=== PATIENT | female | born 1960 | race African-American/Black ===

== ENCOUNTER → 2016-02-27 | Outpatient (CLI) | payer MEDICARE, MEDICAID | LOC: RAD 10:15 | PROVIDERS: ATTEND Internal Medicine | DX: M25.552 Pain in left hip (principal) ==

== ENCOUNTER 2016-04-13 10:05 | Inpatient (IN) | payer MEDICARE, MEDICAID ==
--- NOTE | 2016-04-13 10:26 | ER Document Report ---
ED Medical Screen (RME) - General Stated Complaint: CHEST PAIN Time seen by provider: 10:22 Mode of Arrival: Medic Information source: Patient TRAVEL OUTSIDE OF THE [place] IN LAST 30 DAYS: No - HPI Patient complains to provider of: CHEST PAIN Onset: Other - LAST NIGHT Onset/Duration: Intermittent Associated Symptoms: Chest pain, Shortness of breath. denies: Fever, Nausea, Vomiting Exacerbated by: Denies Relieved by: Denies Similar symptoms previously: Yes Recently seen / treated by doctor: Yes - DIALYSIS THIS AM - Related Data Smoking: Non-smoker Frequency of alcohol use: None Drug Abuse: None Pertinent History: TOOK 3 LITERS OFF IN DIALYSIS THIS AM. Aspirin not given in RME because patient received 4 tablets at dialysis prior to arrival. I have greeted and performed a rapid initial assessment of this patient. A comprehensive ED assessment and evaluation of the patient, analysis of test results and completion of the medical decision making process will be conducted by additional ED providers. Allergies/Adverse Reactions: labetalol [Labetalol] Allergy (Severe, Verified 04/13/16 10:22) swelling, sob Penicillins Allergy (Severe, Verified 04/13/16 10:22) itching Liraglutide [From Victoza] Adverse Reaction (Verified 04/13/16 10:22) nausea/vomitting Past Medical History - Past Medical History Cardiac Medical History: Reports: Hx Congestive Heart Failure, Hx Coronary Artery Disease, Hx Heart Attack - 2007, Hx Hypercholesterolemia, Hx Hypertension Pulmonary Medical History: Reports: Hx Sleep Apnea - On CPap Denies: Hx Asthma, Hx Bronchitis, Hx COPD, Hx Pneumonia Neurological Medical History: Reports: Hx Cerebrovascular Accident. Denies: Hx Seizures Endocrine Medical History: Reports: Hx Diabetes Mellitus Type 1, Hx Diabetes Mellitus Type 2, Hx Hypothyroidism Renal/ Medical History: Reports: Hx End Stage Renal Disease Musculoskeltal Medical History: Reports Hx Arthritis, Reports Hx Gout Psychiatric Medical History: Reports: Hx Depression Past Surgical History: Reports: Hx Appendectomy, Hx Section, Hx Cholecystectomy, Hx Hysterectomy - Abdominal, Hx Orthopedic Surgery - cancer removed from back, Other - parathyroidectomy, 3-1/2 glands removed on 01/13/2016 ; right adrenalectomy - Immunizations Hx Diphtheria, Pertussis, Tetanus Vaccination: Yes
[2016-04-13 11:20] LABS: ABSOLUTE BASOPHILS # (AUTO) 0.1 10^3/uL (0.0-0.2); ABSOLUTE EOSINOPHILS # (AUTO) 0.5 10^3/uL (0.0-0.6); ABSOLUTE LYMPHOCYTES (AUTO) 2.1 10^3/uL (0.5-4.7); ABSOLUTE MONOCYTES (AUTO) 0.7 10^3/uL (0.1-1.4); ABSOLUTE NEUT (AUTO) 5.5 10^3/uL (1.7-8.2); BASOPHILS % (AUTO) 0.8 % (0-2); EOSINOPHILS % (AUTO) 5.8 % (0-6); HEMATOCRIT 39.6 % (36.0-47.0); HEMOGLOBIN 12.8 g/dL (12.0-15.5); HGB HCT DIFFERENCE -1.2; LYMPHOCYTES % (AUTO) 23.5 % (13-45); MEAN CORPUSCULAR HEMOGLOBIN 28.6 pg (27.0-33.4); MEAN CORPUSCULAR HGB CONC 32.4 g/dL (32.0-36.0); MEAN CORPUSCULAR VOLUME 88 fl (80-97); MONOCYTES % (AUTO) 8.3 % (3-13); PROTHROMBIN TIME 12.6 SEC (11.4-15.4); RED BLOOD COUNT 4.48 10^6/uL (3.72-5.28); RED CELL DISTRIBUTION WIDTH 15.9 % (11.5-14.0); SEGMENTED NEUTROPHILS % (AUTO) 61.6 % (42-78)
[2016-04-13 11:34] LABS: ALANINE AMINOTRANSFERASE 51 U/L (9-52); ALBUMIN 4.4 g/dL (3.5-5.0); ALKALINE PHOSPHATASE 234 U/L (38-126); ANION GAP 15 (5-19); ASPARTATE AMINO TRANSFERASE 35 U/L (14-36); BILIRUBIN,TOTAL 1.1 mg/dL (0.2-1.3); BLOOD UREA NITROGEN 41 mg/dL (7-20); CALCIUM 8.8 mg/dL (8.4-10.2); CARBON DIOXIDE 31 mmol/L (22-30); CHLORIDE 93 mmol/L (98-107); CREATINE KINASE 85 U/L (30-135); GLUCOSE 96 mg/dL (75-110); POTASSIUM 4.7 mmol/L (3.6-5.0); SODIUM 139.4 mmol/L (137-145); TOTAL PROTEIN 8.4 g/dL (6.3-8.2)
[2016-04-13 11:46] LABS: CREATINE KINASE MB 0.79 ng/mL (<4.55)
[2016-04-13 11:55] LABS: TROPONIN I 0.037 ng/mL
--- NOTE | 2016-04-13 12:53 | ER Document Report ---
ED General - General Chief Complaint: Chest Pain Stated Complaint: CHEST PAIN Mode of Arrival: Medic Information source: Patient Notes: 56 yr old dialysis female presents with complaints of left sided chest pressure sensation with associated sob. pt denies any fevers or chills, nausea or vomiting. pt denies any productivity to cough pt notes pain started last night, had continued pain today , still had dialysis and removed 3 liters. TRAVEL OUTSIDE OF THE [place] IN LAST 30 DAYS: No - HPI Onset: Yesterday Onset/Duration: Persistent Quality of pain: Achy Severity: Mild Pain Level: 1 Associated symptoms: Chest pain Exacerbated by: Denies Relieved by: Denies Similar symptoms previously: Yes Recently seen / treated by doctor: Yes - Related Data Allergies/Adverse Reactions: labetalol [Labetalol] Allergy (Severe, Verified 04/13/16 10:22) swelling, sob Penicillins Allergy (Severe, Verified 04/13/16 10:22) itching Liraglutide [From Victoza] Adverse Reaction (Verified 04/13/16 10:22) nausea/vomitting Past Medical History - General Information source: Patient - Social History Smoking Status: Unknown if Ever Smoked Cigarette use (# per day): No Chew tobacco use (# tins/day): No Smoking Education Provided: No Frequency of alcohol use: None Drug Abuse: None Family History: Reviewed & Not Pertinent Patient has suicidal ideation: No Patient has homicidal ideation: No - Past Medical History Cardiac Medical History: Reports: Hx Congestive Heart Failure, Hx Coronary Artery Disease, Hx Heart Attack - 2007, Hx Hypercholesterolemia, Hx Hypertension Pulmonary Medical History: Reports: Hx Sleep Apnea - On CPap Denies: Hx Asthma, Hx Bronchitis, Hx COPD, Hx Pneumonia Neurological Medical History: Reports: Hx Cerebrovascular Accident. Denies: Hx Seizures Endocrine Medical History: Reports: Hx Diabetes Mellitus Type 1, Hx Diabetes Mellitus Type 2, Hx Hypothyroidism Renal/ Medical History: Reports: Hx End Stage Renal Disease. Denies: Hx Peritoneal Dialysis Musculoskeltal Medical History: Reports Hx Arthritis, Reports Hx Gout Psychiatric Medical History: Reports: Hx Depression Past Surgical History: Reports: Hx Appendectomy, Hx Section, Hx Cholecystectomy, Hx Hysterectomy - Abdominal, Hx Orthopedic Surgery - cancer removed from back, Other - parathyroidectomy, 3-1/2 glands removed on 01/13/2016 ; right adrenalectomy - Immunizations Hx Diphtheria, Pertussis, Tetanus Vaccination: Yes Hx Pneumococcal Vaccination: 02/18/15 Review of Systems - Review of Systems Notes: REVIEW OF SYSTEMS: CONSTITUTIONAL : Denies fever, chills, or sweats. Denies recent illness. EENT: Denies eye, ear, throat, or mouth pain or symptoms. Denies nasal or sinus congestion or discharge. Denies throat, tongue, or mouth swelling or difficulty swallowing. CARDIOVASCULAR: admits to chest pain RESPIRATORY: Denies cough, cold, or chest congestion. Denies shortness of breath, difficulty breathing, or wheezing. GASTROINTESTINAL: Denies abdominal pain or distention. Denies nausea, vomiting , or diarrhea. Denies blood in vomitus, stools, or per rectum. Denies black, tarry stools. Denies constipation. GENITOURINARY: Denies difficulty urinating, painful urination, burning, frequency, blood in urine, or discharge. FEMALE GENITOURINARY: Denies vaginal bleeding, heavy or abnormal periods, irregular periods. Denies vaginal discharge or odor. MUSCULOSKELETAL: Denies back or neck pain or stiffness. Denies joint pain or swelling. SKIN: Denies rash, lesions or sores. HEMATOLOGIC : Denies easy bruising or bleeding. LYMPHATIC: Denies swollen, enlarged glands. NEUROLOGICAL: Denies confusion or altered mental status. Denies passing out or loss of consciousness. Denies dizziness or lightheadedness. Denies headache. Denies weakness or paralysis or loss of use of either side. Denies problems with gait or speech. Denies sensory loss, numbness, or tingling. Denies seizures. PSYCHIATRIC: Denies anxiety or stress. Denies depression, suicidal ideation, or homicidal ideation. ALL OTHER SYSTEMS REVIEWED AND NEGATIVE. Dictation was performed using [employer] voice recognition software PHYSICAL EXAMINATION: GENERAL: Well-appearing, well-nourished and in no acute distress. HEAD: Atraumatic, normocephalic. EYES: Pupils equal round and reactive to light, extraocular movements intact, conjunctiva are normal. ENT: Nares patent, oropharynx clear without exudates. Moist mucous membranes. NECK: Normal range of motion, supple without lymphadenopathy LUNGS: Breath sounds clear to auscultation bilaterally and equal. No wheezes rales or rhonchi. HEART: Regular rate and rhythm without murmurs ABDOMEN: Soft, nontender, nondistended abdomen. No guarding, no rebound. No masses appreciated. Female : deferred Musculoskeletal: Normal range of motion, no pitting or edema. No cyanosis. NEUROLOGICAL: Cranial nerves grossly intact. Normal speech, normal gait. Normal sensory, motor exams PSYCH: Normal mood, normal affect. SKIN: dialysis access left upper Course - Re-evaluation Re-evalutation: 04/13/16 12:49 first set of cardiac enzymes were negative, chest xray consistant wit hchf, no fluid noted. pt will be admitted ot dr gooden for acs rule out given risk factors - Laboratory Result Diagrams: 04/13/16 10:47 04/13/16 10:47 Laboratory results interpreted by me: 04/13/16 04/13/16 04/13/16 10:47 10:47 10:47 RDW 15.9 H Chloride 93 L Carbon Dioxide 31 H BUN 41 H Creatinine 6.50 H Est GFR ( Amer) 8 L Est GFR (Non-Af Amer) 7 L Alkaline Phosphatase 234 H NT-Pro-B Natriuret Pep 1140 H Total Protein 8.4 H - Diagnostic Test Radiology reviewed: Image reviewed, Reports reviewed Discharge - Discharge Clinical Impression: Renal failure, SOB (shortness of breath) CHF (congestive heart failure) Qualifiers: Congestive heart failure type: combined Congestive heart failure chronicity: acute on chronic Qualified Code(s): I50.43 - Acute on chronic combined systolic (congestive) and diastolic (congestive) heart failure Chest pain Qualifiers: Chest pain type: unspecified Qualified Code(s): R07.9 - Chest pain, unspecified Condition: Stable Disposition: ADMITTED OBSERVATION Admitting Provider: [facility] Admitted: [facility]
[2016-04-13 17:00] LABS: CREATINE KINASE MB 0.65 ng/mL (<4.55); TROPONIN I 0.031 ng/mL
[2016-04-13] MEDS ORDERED: ONDANSETRON HCL 8 MG TABLET PO PRN (17:20)
[2016-04-13] MEDS ORDERED: (PENDING PHARMACY ID) (Tramadol Hcl/Acetaminophen [Tramadol-Acetaminophn 37.5-325] 1 TAB) PO PRN (17:20)
[2016-04-13] MEDS ORDERED: (PENDING PHARMACY ID) (Amlodipine/Valsartan/Hcthiazid [Exforge Hct 10-320-25 Mg Tab] 1 EAC PO SCH (17:30)
[2016-04-13] MEDS ORDERED: (PENDING PHARMACY ID) (Clonidine Hcl [Catapres 0.3 Mg Tablet] 0.3 MG) PO SCH (17:30)
[2016-04-13] MEDS ORDERED: VITAMIN D2 PO SCH (18:00)
[2016-04-13] MEDS ORDERED: [UNRECOGNIZED DRUG - OTHER] PO SCH (18:00)
[2016-04-13] MEDS ORDERED: CALCIUM CARBONATE PO SCH (18:00)
--- NOTE | 2016-04-13 18:29 | EKG REPORT ---
SEVERITY:- ABNORMAL ECG - SINUS RHYTHM ABNORMAL T, CONSIDER ISCHEMIA, LATERAL LEADS BORDERLINE PROLONGED QT INTERVAL : Confirmed by: Ulysses Walden MD 13-Apr-2016 18:29:00
[2016-04-13] MEDS ORDERED: METOPROLOL SUCCINATE 50 MG TAB.SR.24H PO ONE (19:00)
[2016-04-13] MEDS ORDERED: LUBIPROSTONE 24 MCG CAPSULE PO ONE (19:00)
[2016-04-13] MEDS ORDERED: CALCITRIOL 0.25 MCG CAPSULE PO ONE (19:00)
[2016-04-13] MEDS ORDERED: HYDROCHLOROTHIAZIDE 25 MG TABLET PO ONE (19:30)
[2016-04-13] MEDS ORDERED: VALSARTAN 160 MG TABLET PO ONE (19:30)
[2016-04-13] MEDS ORDERED: AMLODIPINE BESYLATE 10 MG TABLET PO ONE (19:30)
[2016-04-13] MEDS: CALCIUM CARBONATE 500 MG TAB.CHEW PO SCH (19:48)
[2016-04-13] MEDS: CLONIDINE HCL 0.1 MG TABLET PO SCH (21:49)
[2016-04-13] MEDS: INSULIN GLARGINE,HUM.REC.ANLOG 1,000 UNIT/10 ML UNIT SUBCUT SCH (21:49)
[2016-04-13 23:21] LABS: CREATINE KINASE MB 0.48 ng/mL (<4.55); TROPONIN I 0.032 ng/mL
[2016-04-13] MEDS ORDERED: CLONAZEPAM 1 MG TABLET PO PRN (23:50)
[2016-04-13] MEDS ORDERED: PREGABALIN 75 MG CAPSULE PO ONE (23:50)
[2016-04-13] MEDS ORDERED: CLONAZEPAM 1 MG TABLET PO ONE (23:51)
[2016-04-14 05:13] LABS: CHOLESTEROL 223.24 mg/dL (0-200); Direct HDL 37 mg/dL (>40); TRIGLYCERIDES 296 mg/dL (<150)
[2016-04-14 05:24] LABS: DIRECT LDL 114 mg/dL (<100)
[2016-04-14 05:26] LABS: CREATINE KINASE MB 0.31 ng/mL (<4.55); TROPONIN I 0.033 ng/mL
[2016-04-14 05:28] LABS: VLDL CHOLESTEROL 59.2 mg/dL (10-31)
[2016-04-14] MEDS: CALCIUM CARBONATE 500 MG TAB.CHEW PO SCH ×2 (09:32→17:40)
[2016-04-14] MEDS: CALCITRIOL 0.25 MCG CAPSULE PO SCH (09:34)
[2016-04-14] MEDS: PREGABALIN 75 MG CAPSULE PO SCH ×2 (09:34→17:41)
[2016-04-14] MEDS: ASPIRIN 81 MG TABLET, ENT COATED PO SCH (09:36)
[2016-04-14] MEDS: METOPROLOL SUCCINATE 50 MG TAB.SR.24H PO SCH (09:37)
[2016-04-14] MEDS: INSULIN GLARGINE,HUM.REC.ANLOG 1,000 UNIT/10 ML UNIT SUBCUT SCH ×2 (09:41→23:04)
[2016-04-14] MEDS: AMLODIPINE BESYLATE 10 MG TABLET PO SCH (10:31)
[2016-04-14] MEDS: CLONIDINE HCL 0.1 MG TABLET PO SCH ×2 (10:32→23:08)
[2016-04-14] MEDS: VALSARTAN 160 MG TABLET PO SCH (10:59)
[2016-04-14] MEDS: LUBIPROSTONE 24 MCG CAPSULE PO SCH ×2 (10:59→23:03)
[2016-04-14] MEDS: HYDROCHLOROTHIAZIDE 25 MG TABLET PO SCH (10:59)
--- NOTE | 2016-04-14 13:02 | XCELERA REPORT ---
[address] [address] Transthoracic Echocardiogram Report Name: MARIOLA GAR Age: 56 yrs Gender: Female : 1960 Patient Status: Inpatient Patient Location: \S\[facility]\S\A Study Date: 04/14/2016 08:47 AM Height: 63 in Weight: 240 lb BSA: 2.1 m2 Procedure: A complete two-dimensional transthoracic echocardiogram was performed (2D, M-mode, spectral and color flow Doppler). The study was technically adequate with some images being suboptimal in quality. Reason For Study: CP Ordering Physician: ROBERTO SALDANA Performed By: Kassidy López Interpretation Summary The left ventricular ejection fraction is normal. Doppler measurements suggest pseudonormalized left ventricular relaxation, which is associated with grade II/IV or mild to moderate diastolic dysfunction There is moderate concentric left ventricular hypertrophy. The left ventricle is grossly normal size. Wall motion cannot be accurately commented on, but no definite regional wall motion abnormalities noted. The right ventricle is mildly dilated. The right ventricular systolic function is normal. The right atrium is mildly dilated. The left atrium is mildly dilated. There is no mitral valve stenosis. There is a mild amount of mitral regurgitation There is no aortic valve stenosis The aortic valve is not well visualized secondary to technical limitations There is a trace to mild amount of tricuspid regurgitation There is mild pulmonary hypertension by echo Right ventricular systolic pressure is estimated to be elevated at 30- 40mmHg. There is no pericardial effusion. MMode/2D Measurements \T\ Calculations RVDd: 3.0 cm LVIDd: 5.1 cm FS: 35.9 % Ao root diam: 2.1 cm IVSd: 1.2 cm LVIDs: 3.2 cm EDV(Teich): 121.8 ml LVPWd: 1.2 cm ESV(Teich): 42.4 ml Ao root area: 3.3 cm2 EF(Teich): 65.2 % LA dimension: 3.9 cm Doppler Measurements \T\ Calculations MV E max octavio: MV P1/2t max octavio: Ao V2 max: LV V1 max P.9 cm/sec 82.4 cm/sec 158.1 cm/sec 4.1 mmHg MV A max octavio: MV P1/2t: 97.8 msec Ao max PG: LV V1 max: 94.3 cm/sec 10.0 mmHg 101.7 cm/sec MV E/A: 0.87 MVA(P1/2t): 2.2 cm2 MV dec slope: 246.8 cm/sec2 MV dec time: 0.34 sec PA V2 max: TR max octavio: 73.5 cm/sec 274.2 cm/sec PA max PG: TR max P.1 mmHg 2.2 mmHg Left Ventricle The left ventricle is grossly normal size. There is moderate concentric left ventricular hypertrophy. The left ventricular ejection fraction is normal. Doppler measurements suggest pseudonormalized left ventricular relaxation, which is associated with grade II/IV or mild to moderate diastolic dysfunction. Wall motion cannot be accurately commented on, but no definite regional wall motion abnormalities noted. Right Ventricle The right ventricle is mildly dilated. There is normal right ventricular wall thickness. The right ventricular systolic function is normal. Atria The right atrium is mildly dilated. The left atrium is mildly dilated. Interarterial septum not well visualized and not well dopplered. Cannot comment on ASD/PFO presence. Mitral Valve The mitral valve is grossly normal. There is no mitral valve stenosis. There is a mild amount of mitral regurgitation. Aortic Valve The aortic valve is mildly calcified. The aortic valve is not well visualized secondary to technical limitations. There is no aortic valve stenosis. No aortic regurgitation is present. Tricuspid Valve The tricuspid valve is not well visualized secondary to technical limitations. There is no tricuspid stenosis. There is a trace to mild amount of tricuspid regurgitation. There is mild pulmonary hypertension by echo. Right ventricular systolic pressure is estimated to be elevated at 30-40mmHg. Pulmonic Valve The pulmonic valve is not well visualized. Great Vessels The aortic root is not well visualized but is probably normal size. The inferior vena cava was not well visualized. Effusions There is no pericardial effusion. : ROBERTO SALDANA > Lexii Thorne
--- NOTE | 2016-04-14 15:57 | PDOC H&P ---
History of Present Illness Admission Date/PCP: 04/13/16 14:20 ROBERTO SALDANA MD History of Present Illness: MARIOLA GAR is a 56 year old female, she has a history of end-stage renal disease on maintenance hemodialysis, she had chest pain for the last few days, the chest pain is intermittent is pressure-like, she thought dialysis would resolve the chest pain , so she kept her Scheduled outpatient hemodialysis and during dialysis she had episode of chest pressure, the dialysis session was not completed, she was sent to the emergency room for evaluation of the chest pain. She was seen and evaluated in the emergency room, a 12-lead EKG was done and it showed sinus rhythm with no definite ST-T wave segment changes. Admission was advised, because of the risk of cardiorenal syndrome, the incidence of coronary artery disease is in the setting of end-stage renal disease. She has suspicious chest syndrome, she had a Lexiscan stress test on 05/08/2015.The conclusion of the stress test was that that is probably no scintigraphic evidence of lexiscan induced ischemia. There is no scintigraphic evidence of myocardial infarction Past Medical History Cardiac Medical History: Reports: Hyperlipidema, Hypertension Pulmonary Medical History: Reports: Sleep Apnea - On CPap Endocrine Medical History: Reports: Diabetes Mellitus Type 2, Hypothyroidism Renal/ Medical History: Reports: End Stage Renal Disease Musculoskeltal Medical History: Reports: Arthritis, Gout Psychiatric Medical History: Reports: Depression Hematology: Reports: Anemia Past Surgical History Past Surgical History: Reports: Appendectomy, Section, Cholecystectomy , Hysterectomy - Abdominal, Orthopedic Surgery - cancer removed from back, Other - parathyroidectomy, 3-1/2 glands removed on 01/13/2016; right adrenalectomy Social History Information Source: Patient Smoking Status: Never Smoker Frequency of Alcohol Use: None Hx Recreational Drug Use: No Drugs: None Hx Prescription Drug Abuse: No - Advance Directive Resuscitation Status: Full Code Family History Family History: Reviewed & Not Pertinent Parental Family History Reviewed: Yes Children Family History Reviewed: Yes Sibling(s) Family History Reviewed.: Yes Medication/Allergy Home Medications: Amlodipine/Valsartan/Hcthiazid [Exforge Hct 10-320-25 mg Tab] 1 each PO DAILY Calcitriol [Rocaltrol 0.25 Mcg Capsule] 1 cap PO DAILY 04/13/16 Calcium Carbonate [Tums Chewable 500 mg Tab.chew] 1,000 mg PO BID 04/13/16 Calcium Carbonate/Vitamin D2 [Oyster Shell Calcium-Vit D Tab] 2 tab PO BID 04/13 Calcium Carbonate/Vitamin D3 [Oyster Shell 500-Vit D3 200 Tb] 2 tab PO AC Clonazepam [Clonazepam] 0.5 mg PO BID 04/13/16 Clonidine HCl [Catapres 0.3 mg Tablet] 0.3 mg PO Q12 04/13/16 Insulin Aspart [Novolog Insulin 100 Unit/1 ml 10 ml] 15 unit SQ TID 04/13/16 Insulin Glargine,Hum.rec.anlog [Lantus] 54 unit SQ BID 04/13/16 Lubiprostone [Amitiza 24 Mcg Capsule] 24 mcg PO Q12 04/13/16 Metoprolol Succinate [Toprol XL 100 mg Tablet] 100 mg PO DAILY 04/13/16 Ondansetron HCl [Zofran 8 mg Tablet] 8 mg PO Q8HP PRN 04/13/16 Pregabalin [Lyrica] 75 mg PO BID 04/13/16 Tramadol HCl/Acetaminophen [Tramadol-Acetaminophn 37.5-325] 1 tab PO Q6HP PRN Allergies/Adverse Reactions: labetalol [Labetalol] Allergy (Severe, Verified 04/13/16 10:22) swelling, sob Penicillins Allergy (Severe, Verified 04/13/16 10:22) itching Liraglutide [From Victoza] Adverse Reaction (Verified 04/13/16 10:22) nausea/vomitting Review of Systems Eyes: ABSENT: visual disturbances Ears: ABSENT: hearing changes Cardiovascular: PRESENT: chest pain Respiratory: ABSENT: cough, hemoptysis Gastrointestinal: ABSENT: abdominal pain, constipation, diarrhea, hematemesis, hematochezia, nausea, vomiting Genitourinary: ABSENT: dysuria, hematuria Musculoskeletal: ABSENT: joint swelling Integumentary: ABSENT: rash, wounds Neurological: ABSENT: abnormal gait, abnormal speech, confusion, dizziness, focal weakness, syncope Psychiatric: ABSENT: anxiety, depression, homidical ideation, suicidal ideation Endocrine: ABSENT: cold intolerance, heat intolerance, menstrual abnormalities, polydipsia, polyuria Hematologic/Lymphatic: ABSENT: easy bleeding, easy bruising, lymphadenopathy Physical Exam Vital Signs: Temp Pulse Resp BP Pulse Ox 97.6 F 56 L 16 102/42 L 99 04/14/16 14:57 04/14/16 14:57 04/14/16 14:57 04/14/16 14:57 04/14/16 14:57 Intake & Output 04/13/16 04/14/16 04/15/16 06:59 06:59 06:59 Weight 129.5 kg General appearance: PRESENT: no acute distress, well-developed, well-nourished Head exam: PRESENT: atraumatic, normocephalic Eye exam: PRESENT: conjunctiva pink, EOMI, PERRLA Ear exam: PRESENT: normal external ear exam Mouth exam: PRESENT: moist, tongue midline Neck exam: PRESENT: full ROM Respiratory exam: PRESENT: clear to auscultation [facility] Cardiovascular exam: PRESENT: RRR, +S1, +S2 Vascular exam: PRESENT: normal capillary refill GI/Abdominal exam: PRESENT: normal bowel sounds, soft. ABSENT: distended, guarding, mass, organolmegaly, rebound, tenderness Rectal exam: PRESENT: deferred Neurological exam: PRESENT: alert, awake, oriented to person, oriented to place , oriented to time, oriented to situation, CN II-XII grossly intact Psychiatric exam: PRESENT: appropriate affect, normal mood Skin exam: PRESENT: dry, intact, warm Results Laboratory Results: 04/14/16 04:45 Triglycerides 296 H Cholesterol 223.24 H LDL Cholesterol Direct 114 H VLDL Cholesterol 59.2 H HDL Cholesterol 37 L 04/13/16 04/13/16 04/14/16 16:15 22:49 04:45 CK-MB (CK-2) 0.65 0.48 0.31 Troponin I 0.031 0.032 0.033 Impressions: Chest X-Ray 04/13/16 10:24 IMPRESSION: Cardiomegaly. No acute infiltrates Assessment & Plan - Diagnosis (1) Chest pain Qualifiers: Chest pain type: unspecified Qualified Code(s): R07.9 - Chest pain, unspecified Is this a current diagnosis for this admission?: YesPlan: She has multiple risk factors for ischemic heart disease, hypertension, diabetes , end-stage renal disease, the troponin is indeterminate , will schedule for lexiscan-Cardiolite stress test. 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
[2016-04-14] MEDS: CALCIUM CARBONATE 250 MG/VITAMIN D3 125 UNIT TABLET PO SCH ×2 (16:56→17:41)
--- NOTE | 2016-04-14 18:14 | PDOC CONSULTATION ---
Consultation Consult Date: 04/14/16 Attending physician:: ROBERTO SALDANA Consult reason:: I was asked by Dr. Saldana to supervise dialysis for the patient while here in the hospital. History of Present Illness Admission Date/PCP: 04/13/16 14:20 ROBERTO SALDANA MD History of Present Illness: Patient is a 56-year-old -[place] lady known to me with history of end- stage renal disease on maintenance hemodialysis, diabetes mellitus, hypertension , and coronary artery disease who was brought in by the EMS from [facility] dialysis unit to the emergency room yesterday because of chest pain. I actually saw the patient while she was waiting for the EMS at [facility] yesterday when she was having chest pains. At the time she described a substernal chest pain with intensity of 4 over 5 with radiation to the right arm. She was taken off dialysis about 40 minutes early but she was able to still have 3 hours of dialysis treatment. An ultrafiltration of 3 L was obtained during the 3 hour treatment. The patient's blood pressure at the time was slightly lowish with systolic blood pressure in the 90s so we could not give any nitroglycerin. But we did give chewable aspirin 81 mg 4 tablets at the time the EMS came in. Patient tells me that she was having this intermittent episode of chest pains even before coming to dialysis treatment yesterday. She said it started the night before were it's coming on and off. She did have a Lexiscan stress test last year on 05/08/2015 which was interpreted as negative. Patient subsequently was evaluated in the emergency room. Today patient tells me that she is still having episodes of chest pain intermittently while here in the hospital but with less intensity. Dr. Saldana is planning to do a stress test tomorrow. Other than the chest pain she denies any shortness of breath, nausea, vomiting, no any other complaints. She did not require any dialysis treatment today as her labs are stable. Past Medical History Cardiac Medical History: Reports: CHF-Diastolic, Coronary Artery Disease, Hyperlipidemia, Hypertension-primary, Myocardial Infarction - 2007 Pulmonary Medical History: Reports: Sleep Apnea - On CPap Neurological Medical History: Reports: Ischemic CVA Endocrine Medical History: Reports: Diabetes Mellitus Type 2, Hypothyroidism, Other - History of pheochromocytoma/paraganglioma, primary hyperparathyroidism superimposed with secondary hyperparathyroidism with parathyroid hyperplasia Complications of Diabetes: Reports: Nephropathy, Retinopathy Renal/ Medical History: Reports: End Stage Renal Disease, Hypercalcemia Malignancy Medical History: Reports: Other - Right shoulder tumor Musculoskeltal Medical History: Reports: Arthritis, Gout, Systemic Lupus Erythematosus, Other - Sciatica Skin Medical History: Reports: Other - Keloid Psychiatric Medical History: Reports: Depression Past Surgical History Past Surgical History: Reports: Appendectomy, Section, Cholecystectomy , Hysterectomy - Abdominal, Orthopedic Surgery - cancer removed from back, Other - parathyroidectomy, 3-1/2 glands removed on 01/13/2016; right adrenalectomy Social History Information Source: Patient Smoking Status: Never Smoker Frequency of Alcohol Use: None Hx Recreational Drug Use: No Drugs: None Hx Prescription Drug Abuse: No - Advance Directive Resuscitation Status: Full Code Family History Family History: CAD - Father, Chronic Kidney Disease - Mother was on dialysis, DM - Parents and daughter, Malignancy - Father Parental Family History Reviewed: Yes Children Family History Reviewed: Yes Sibling(s) Family History Reviewed.: No Medication/Allergy Home Medications: Amlodipine/Valsartan/Hcthiazid [Exforge Hct 10-320-25 mg Tab] 1 each PO DAILY Calcitriol [Rocaltrol 0.25 Mcg Capsule] 1 cap PO DAILY 04/13/16 Calcium Carbonate [Tums Chewable 500 mg Tab.chew] 1,000 mg PO BID 04/13/16 Calcium Carbonate/Vitamin D2 [Oyster Shell Calcium-Vit D Tab] 2 tab PO BID 04/13 Calcium Carbonate/Vitamin D3 [Oyster Shell 500-Vit D3 200 Tb] 2 tab PO AC Clonazepam [Clonazepam] 0.5 mg PO BID 04/13/16 Clonidine HCl [Catapres 0.3 mg Tablet] 0.3 mg PO Q12 04/13/16 Insulin Aspart [Novolog Insulin 100 Unit/1 ml 10 ml] 15 unit SQ TID 04/13/16 Insulin Glargine,Hum.rec.anlog [Lantus] 54 unit SQ BID 04/13/16 Lubiprostone [Amitiza 24 Mcg Capsule] 24 mcg PO Q12 04/13/16 Metoprolol Succinate [Toprol XL 100 mg Tablet] 100 mg PO DAILY 04/13/16 Ondansetron HCl [Zofran 8 mg Tablet] 8 mg PO Q8HP PRN 04/13/16 Pregabalin [Lyrica] 75 mg PO BID 04/13/16 Tramadol HCl/Acetaminophen [Tramadol-Acetaminophn 37.5-325] 1 tab PO Q6HP PRN Allergies/Adverse Reactions: labetalol [Labetalol] Allergy (Severe, Verified 04/13/16 10:22) swelling, sob Penicillins Allergy (Severe, Verified 04/13/16 10:22) itching Liraglutide [From Victoza] Adverse Reaction (Verified 04/13/16 10:22) nausea/vomitting Review of Systems All systems: reviewed and no additional remarkable complaints except as stated Review of Systems: Constitutional: ABSENT: chills, fatigue, fever(s), headache(s), weight gain, weight loss Eyes: ABSENT: visual disturbances Ears: ABSENT: hearing changes Cardiovascular: ABSENT: dyspnea on exertion, edema, orthropnea, palpitations, admits chest pains Respiratory: ABSENT: cough, dyspnea, hemoptysis Gastrointestinal: ABSENT: abdominal pain, constipation, diarrhea, hematemesis, hematochezia, nausea, vomiting Genitourinary: ABSENT: dysuria, hematuria Musculoskeletal: ABSENT: joint swelling Integumentary: ABSENT: rash, wounds Neurological: ABSENT: abnormal gait, abnormal speech, confusion, dizziness, focal weakness, numbness, syncope Psychiatric: ABSENT: anxiety, depression Endocrine: ABSENT: cold intolerance, heat intolerance, polydipsia, polyuria Hematologic/Lymphatic: ABSENT: easy bleeding, easy bruising, lymphadenopathy Physical Exam Vital Signs: Temp Pulse Resp BP Pulse Ox 97.6 F 59 L 16 102/42 L 99 04/14/16 14:57 04/14/16 15:07 04/14/16 14:57 04/14/16 14:57 04/14/16 14:57 Intake & Output 04/13/16 04/14/16 04/15/16 06:59 06:59 06:59 Weight 129.5 kg Exam: General appearance: no acute distress, cooperative, well-developed, well- nourished Head exam: PRESENT: atraumatic, normocephalic Eye exam: PRESENT: Conjunctiva [place], EOMI, PERRLA. ABSENT: conjunctival injection, scleral icterus Mouth exam: PRESENT: moist, neck supple, tongue midline Neck exam: PRESENT: full ROM. ABSENT: carotid bruit, JVD, lymphadenopathy, thyromegaly Respiratory exam: PRESENT: Diminished to auscultation bilaterally. ABSENT: rales, rhonchi, stridor, wheezes Cardiovascular exam: PRESENT: RRR, +S1, +S2. ABSENT: systolic murmur Pulses: PRESENT: normal radial pulses, normal dorsalis pedis pulses GI/Abdominal exam: PRESENT: normal bowel sounds, soft. ABSENT: guarding, mass, tenderness Rectal exam: deferred Extremities exam: PRESENT: full ROM. ABSENT: calf tenderness, pedal edema Musculoskeletal: PRESENT: full ROM. ABSENT: deformity Neurological exam: PRESENT: alert, Awake, Oriented to person, Oriented to place , Oriented to time, reflexes normal, CN II-XII grossly intact. ABSENT: motor sensory deficit Psychiatric exam: PRESENT: appropriate affect, normal mood. ABSENT: homicidal ideation, suicidal ideation Skin exam: PRESENT: intact, dry, warm. ABSENT: rash Results Laboratory Results: 04/14/16 04:45 Triglycerides 296 H Cholesterol 223.24 H LDL Cholesterol Direct 114 H VLDL Cholesterol 59.2 H HDL Cholesterol 37 L 04/13/16 04/13/16 04/14/16 16:15 22:49 04:45 CK-MB (CK-2) 0.65 0.48 0.31 Troponin I 0.031 0.032 0.033 Impressions: Chest X-Ray 04/13/16 10:24 IMPRESSION: Cardiomegaly. No acute infiltrates Assessment & Plan - Diagnosis (1) End stage renal disease on dialysis Is this a current diagnosis for this admission?: YesPlan: She does not need any urgent hemodialysis treatment today. We will check labs tomorrow and if needed we can dialyze her here but if her labs are stable we will plan to dialyze on Tuesday if she is still admitted here in the hospital. (2) Chest pain Qualifiers: Chest pain type: unspecified Qualified Code(s): R07.9 - Chest pain, unspecified Is this a current diagnosis for this admission?: YesPlan: Defer management to Dr. Saldana. (3) Hypotension Is this a current diagnosis for this admission?: YesPlan: Patient's blood pressure has been on the low side. This needs to be morning toward and blood pressure medications to be adjusted if it continues. 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 Saldana and the patient. Thank you very much for this consultation. - Time Time Spent: 50 to 70 Minutes
[2016-04-14] MEDS ORDERED: GLUCAGON,HUMAN RECOMB 1 MG INJ IM PRN (22:55)
[2016-04-14] MEDS ORDERED: DEXTROSE 50%-WATER SYRINGE 12.5 GM/25 ML DOSE IV PRN (22:55)
[2016-04-14] MEDS ORDERED: DEXTROSE 40% GEL 15 GM TUBE PO PRN (22:55)
[2016-04-14] MEDS ORDERED: DEXTROSE 50%-WATER SYRINGE 25 GM/50 ML DOSE IV PRN (22:55)
[2016-04-14] MEDS ORDERED: DEXTROSE 40% GEL 15 GM TUBE X 2 PO PRN (22:55)
[2016-04-14] MEDS: INSULIN LISPRO 100 UNIT/ML 3 ML VIAL SUBCUT PRN (23:03)
[2016-04-15 05:04] LABS: ANION GAP 16 (5-19); BLOOD UREA NITROGEN 78 mg/dL (7-20); CALCIUM 8.6 mg/dL (8.4-10.2); CARBON DIOXIDE 27 mmol/L (22-30); CHLORIDE 94 mmol/L (98-107); GLUCOSE 150 mg/dL (75-110); POTASSIUM 5.3 mmol/L (3.6-5.0); SODIUM 136.6 mmol/L (137-145)
[2016-04-15] MEDS: INSULIN GLARGINE,HUM.REC.ANLOG 1,000 UNIT/10 ML UNIT SUBCUT SCH ×2 (09:13→22:56)
[2016-04-15] MEDS: CALCIUM CARBONATE 500 MG TAB.CHEW PO SCH ×2 (10:50→17:22)
[2016-04-15] MEDS: CALCIUM CARBONATE 250 MG/VITAMIN D3 125 UNIT TABLET PO SCH ×2 (10:51→17:21)
[2016-04-15] MEDS: PREGABALIN 75 MG CAPSULE PO SCH ×2 (10:52→17:22)
[2016-04-15] MEDS: CLONIDINE HCL 0.1 MG TABLET PO SCH ×2 (10:53→22:56)
[2016-04-15] MEDS: METOPROLOL SUCCINATE 50 MG TAB.SR.24H PO SCH (10:54)
[2016-04-15] MEDS: ASPIRIN 81 MG TABLET, ENT COATED PO SCH (10:58)
[2016-04-15] MEDS: CALCITRIOL 0.25 MCG CAPSULE PO SCH (10:59)
[2016-04-15] MEDS: VALSARTAN 160 MG TABLET PO SCH (11:06)
[2016-04-15] MEDS: AMLODIPINE BESYLATE 10 MG TABLET PO SCH (11:06)
[2016-04-15] MEDS: LUBIPROSTONE 24 MCG CAPSULE PO SCH ×2 (11:07→22:57)
[2016-04-15] MEDS: HYDROCHLOROTHIAZIDE 25 MG TABLET PO SCH (11:07)
[2016-04-15] MEDS ORDERED: TRAMADOL HCL 50 MG TABLET PO PRN ×2 (11:30→20:26)
[2016-04-15] MEDS: INSULIN LISPRO 100 UNIT/ML 3 ML VIAL SUBCUT PRN ×3 (12:01→22:57)
--- NOTE | 2016-04-15 14:21 | Physician Advisory Note ---
Physician Advisor ProgressNote .: [facility] I have reviewed the medical record for this patient. Physician Advisor Statement: Possible documentation opportunities if attending agrees: 1. "CP, most likely due to " ("noncardiac" is not a helpful dx for coders ) 2. "ESRD on HD" - please correct the H&P impression of 'DM-2 with , & list the ESRD on each note 3. "obesity with BMI 50.9" As always, if concerned about any unstable VS or abnormal labs, please comment on them & note what doing about them, & please document each day the potential clinical problems you are concerned could occur if pt not kept in hospital for tx at this time. Thanks for your help with documentation accuracy/specificity improvement! Nhi Toribio MD [facility] Physician Advisor, Fellow of Hospital Medicine
--- NOTE | 2016-04-15 20:06 | PDOC PROGRESS REPORT ---
Subjective Progress Note for:: 04/15/16 Subjective:: She has end-stage renal disease on hemodialysis, she presented with suspicious chest pain, she is scheduled for a nuclear stress test for tomorrow. Physical Exam Vital Signs: Temp Pulse Resp BP Pulse Ox 97.6 F 61 16 113/56 L 99 04/15/16 15:51 04/15/16 15:51 04/15/16 15:51 04/15/16 15:51 04/15/16 15:51 Intake & Output 04/14/16 04/15/16 04/16/16 06:59 06:59 06:59 Intake Total 230 325 Balance 230 325 Weight 130.4 kg General appearance: PRESENT: no acute distress Eye exam: PRESENT: PERRLA Respiratory exam: PRESENT: clear to auscultation charity Cardiovascular exam: PRESENT: +S1, +S2 GI/Abdominal exam: PRESENT: soft Neurological exam: PRESENT: alert Results Laboratory Results: 04/15/16 04:02 04/15/16 04:02 Sodium 136.6 L Potassium 5.3 H Chloride 94 L Carbon Dioxide 27 Anion Gap 16 BUN 78 H Creatinine 10.80 H Est GFR ( Amer) 4 L Est GFR (Non-Af Amer) 4 L Glucose 150 H Calcium 8.6 04/13/16 04/13/16 04/14/16 16:15 22:49 04:45 CK-MB (CK-2) 0.65 0.48 0.31 Troponin I 0.031 0.032 0.033 Impressions: Chest X-Ray 04/13/16 10:24 IMPRESSION: Cardiomegaly. No acute infiltrates Assessment & Plan - Diagnosis (1) Chest pain Qualifiers: Chest pain type: unspecified Qualified Code(s): R07.9 - Chest pain, unspecified Is this a current diagnosis for this admission?: Yes (3) Type 2 diabetes mellitus Qualifiers: Diabetes mellitus complication status: with kidney complications Diabetes mellitus complication detail: with chronic kidney disease Diabetes mellitus retirement insulin use: with terminal block assembler use Chronic kidney disease stage: on chronic dialysis Qualified Code(s): E11.22 - Type 2 diabetes mellitus with diabetic chronic kidney disease; N18.1 - Chronic kidney disease, stage 1; Z79.4 - terminal block assembler (current) use of insulin Is this a current diagnosis for this admission?: Yes
[2016-04-16 06:35] LABS: HEMATOCRIT 32.7 % (36.0-47.0); HEMOGLOBIN 10.8 g/dL (12.0-15.5); HGB HCT DIFFERENCE -0.3; MEAN CORPUSCULAR HGB CONC 32.9 g/dL (32.0-36.0); MEAN CORPUSCULAR VOLUME 88 fl (80-97); RED BLOOD COUNT 3.71 10^6/uL (3.72-5.28); RED CELL DISTRIBUTION WIDTH 15.8 % (11.5-14.0)
[2016-04-16 06:56] LABS: ANION GAP 15 (5-19); BLOOD UREA NITROGEN 101 mg/dL (7-20); CARBON DIOXIDE 27 mmol/L (22-30); CHLORIDE 94 mmol/L (98-107); CREATININE RESULT 12.66 mg/dL (0.52-1.25); GLUCOSE 122 mg/dL (75-110); SODIUM 136.2 mmol/L (137-145)
[2016-04-16 06:58] LABS: POTASSIUM 6.2 mmol/L (3.6-5.0)
[2016-04-16] MEDS: CALCIUM CARBONATE 250 MG/VITAMIN D3 125 UNIT TABLET PO SCH ×2 (10:53→17:58)
[2016-04-16] MEDS: ASPIRIN 81 MG TABLET, ENT COATED PO SCH (10:53)
[2016-04-16] MEDS: CALCITRIOL 0.25 MCG CAPSULE PO SCH (10:54)
[2016-04-16] MEDS: CALCIUM CARBONATE 500 MG TAB.CHEW PO SCH ×2 (10:55→17:59)
[2016-04-16] MEDS: PREGABALIN 75 MG CAPSULE PO SCH ×2 (10:55→17:59)
[2016-04-16] MEDS: HYDROCHLOROTHIAZIDE 25 MG TABLET PO SCH (11:11)
[2016-04-16] MEDS: AMLODIPINE BESYLATE 10 MG TABLET PO SCH (11:11)
[2016-04-16] MEDS: METOPROLOL SUCCINATE 50 MG TAB.SR.24H PO SCH (11:11)
[2016-04-16] MEDS: VALSARTAN 160 MG TABLET PO SCH (11:11)
[2016-04-16] MEDS: LUBIPROSTONE 24 MCG CAPSULE PO SCH (11:11)
[2016-04-16] MEDS: CLONIDINE HCL 0.1 MG TABLET PO SCH (11:11)
[2016-04-16] MEDS: INSULIN GLARGINE,HUM.REC.ANLOG 1,000 UNIT/10 ML UNIT SUBCUT SCH (12:13)
[2016-04-16] MEDS: INSULIN LISPRO 100 UNIT/ML 3 ML VIAL SUBCUT PRN (12:19)
[2016-04-16] MEDS ORDERED: REGADENOSON INJ 0.4 MG/5 ML DISP.SYRIN IV ONE (14:41)
--- NOTE | 2016-04-16 18:04 | PDOC PROGRESS REPORT ---
Subjective Progress Note for:: 04/16/16 Subjective:: I'm seeing Ms. Courtney on dialysis this afternoon. She seems to be comfortable doing fine without any complaints. She underwent stress test this morning. I spoke to Dr. Hoskins and he told me that it was negative. So we will continue dialysis tonight and the plan is for patient to go home tonight. She is tolerating dialysis well currently without any problems. Physical Exam Vital Signs: Temp Pulse Resp BP Pulse Ox 97.4 F 64 18 121/52 L 99 04/16/16 15:27 04/16/16 15:27 04/16/16 15:27 04/16/16 15:27 04/16/16 15:27 Intake & Output 04/15/16 04/16/16 04/17/16 06:59 06:59 06:59 Intake Total 123 Balance 123 Vitals currently on dialysis: Blood pressure 134/68, heart rate of 62, blood flow rate 400 mL per minute and dialysate flow rate 600 mL per minute using her left upper arm AV fistula. Exam: General appearance: PRESENT: no acute distress, cooperative, well-developed, well-nourished Head exam: PRESENT: atraumatic, normocephalic Eye exam: PRESENT: conjunctiva pink, PERRLA. ABSENT: scleral icterus Neck exam: ABSENT: JVD Respiratory exam: PRESENT: Diminished breath sounds. ABSENT: crackles, rales, rhonchi, unlabored, wheezes Cardiovascular exam: PRESENT: Regular rate rhythm -+S1, +S2. ABSENT: diastolic murmur, systolic murmur GI/Abdominal exam: PRESENT: normal bowel sounds, soft. ABSENT: guarding, mass, tenderness Extremities exam: ABSENT: No edema Neurological exam: PRESENT: alert, awake, oriented to person, place and time. Skin exam: PRESENT: dry, warm, Results Laboratory Results: Labs- All tests 24 hr 04/15/16 04/16/16 04/16/16 22:12 05:48 05:48 WBC 10.0 RBC 3.71 L Hgb 10.8 L Hct 32.7 L MCV 88 MCH 29.0 MCHC 32.9 RDW 15.8 H Plt Count 205 Sodium 136.2 L Potassium 6.2 H* Chloride 94 L Carbon Dioxide 27 Anion Gap 15 BUN 101 H Creatinine 12.66 H Est GFR ( Amer) 4 L Est GFR (Non-Af Amer) 3 L Glucose 122 H POC Glucose 276 H Calcium 9.0 04/16/16 04/16/16 06:15 12:05 WBC RBC Hgb Hct MCV MCH MCHC RDW Plt Count Sodium Potassium Chloride Carbon Dioxide Anion Gap BUN Creatinine Est GFR ( Amer) Est GFR (Non-Af Amer) Glucose POC Glucose 122 H 169 H Calcium Impressions: Chest X-Ray 04/13/16 10:24 IMPRESSION: Cardiomegaly. No acute infiltrates Assessment & Plan - Diagnosis (1) End stage renal disease on dialysis Is this a current diagnosis for this admission?: YesPlan: We will do dialysis today for [3] hours, using the patient's AV fistula, with [2 ] potassium bath, blood flow rate of 400-450 mL per minute, dialysate flow rate of [600] mL per minute, ultrafiltration 3-4 L, [no heparin] and no Procrit during dialysis intravenously. Patient will be monitored throughout dialysis treatment by our dialysis nurse. The plan is for patient to go home today as confirmed by Dr. Hoskins. She would go to her regular routine dialysis treatment tomorrow on her regular time at [facility] as an outpatient. (2) Chest pain Qualifiers: Chest pain type: unspecified Qualified Code(s): R07.9 - Chest pain, unspecified Is this a current diagnosis for this admission?: YesPlan: Stress test done today and was allegedly negative. (3) Type 2 diabetes mellitus Qualifiers: Diabetes mellitus complication status: with kidney complications Diabetes mellitus complication detail: with chronic kidney disease Diabetes mellitus nursing home insulin use: with nursing home use Chronic kidney disease stage: on chronic dialysis Qualified Code(s): E11.22 - Type 2 diabetes mellitus with diabetic chronic kidney disease; N18.1 - Chronic kidney disease, stage 1; Z79.4 - terminologist (current) use of insulin Is this a current diagnosis for this admission?: Yes (4) Hypertension Is this a current diagnosis for this admission?: YesPlan: Currently controlled. - Time Time with patient: 15-25 minutes
--- NOTE | 2016-04-16 18:26 | DRAGON STRESS TEST REPORT ---
Intravenous Lexiscan Cardiolite stress test using single photon emmision computerized tomography 2 day protocol. Ordering Provider: Dr. Hoskins. Date of rest and Lexiscan injection and imaging on 04/15/2016 . Date of stress injection and imaging: On 04/16/2016. Indication: Chest pain. Coronary risk factors: Age, diabetes mellitus non- insulin-dependent, and hypertension Resting EKG: Stress EKG: No changes of ischemia. The patient no chest pain or discomfort, and there were no arrhythmias seen. Reason for termination: Protocol. Conclusions: Normal EKG and hemodynamic response to IV Lexiscan. Nuclear data: At rest, on 04/15/2016 the patient was 10.43 given millicuries of technetium 99m sestamibi injected intravenously. As per protocol rest non gated SPECT images were obtained. Subsequently , on 04/16/2016 the patient was given intravenous Lexiscan at a dose of 0.4 mg in 5 mL intravenously, followed by flush with normal saline. Subsequently on the stress dose of 32.9 millicuries of technetium 99m sestamibi was injected intravenously. As per protocol stress gated images were obtained. Nuclear interpretation: Review of images showed that significant breast attenuation artifact of the anterior wall. But in spite of this All segments of the myocardium had normal perfusion at rest, and normal perfusion post stress with IV Lexiscan. All segments of the myocardium had thickening by gated study. Cannot exclude mild diffuse motion and contraction. T. I D. ratio was normal at Computer read rest, and stress left ventricular ejection fraction were 33 %, and 45 %, respectively. . Conclusion: 1. There is no scintigraphic evidence of Lexiscan induced myocardial ischemia. 2. There is no scintigraphic evidence of myocardial infarction/scar. 3. Mild decreased LV ejection fraction by left ventricular gated study. Recommendations: 1.Would recommend strongly to get an echocardiogram for left ventricular ejection fraction correlation. 2.Aggressive risk factor modification, and treating the underlying co- morbidities. [facility]
[2016-04-16 18:33] VITALS: BP 102/42
--- NOTE | 2016-04-16 19:34 | PDOC DISCHARGE SUMMARY ---
General - Admit/Disc Date/PCP Admission Date/Primary Care Provider: 04/16/16 10:41 ROBERTO SALDANA MD Discharge Date: 04/16/16 - Discharge Diagnosis (1) Chest pain Is this a current diagnosis for this admission?: Yes (3) Type 2 diabetes mellitus Is this a current diagnosis for this admission?: Yes - Additional Information Resuscitation Status: Full Code Discharge Activity: Activity As Tolerated, Balance Activity w/Rest Home Medications: Amlodipine/Valsartan/Hcthiazid [Exforge Hct 10-320-25 mg Tab] 1 each PO DAILY Calcitriol [Rocaltrol 0.25 mcg Capsule] 1 cap PO DAILY 04/13/16 Calcium Carbonate [Tums Chewable 500 mg Tab.chew] 1,000 mg PO BID 04/13/16 Calcium Carbonate/Vitamin D2 [Oyster Shell Calcium-Vit D Tab] 2 tab PO BID 04/13 Calcium Carbonate/Vitamin D3 [Oyster Shell 500-Vit D3 200 Tb] 2 tab PO AC Clonazepam 0.5 mg PO BID 04/13/16 Clonidine HCl [Catapres 0.3 mg Tablet] 0.3 mg PO Q12 04/13/16 Insulin Aspart [Novolog Insulin (Aspart) 100 unit/mL] 15 unit SQ TID 04/13/16 Insulin Glargine,Hum.rec.anlog [Lantus] 54 unit SQ BID 04/13/16 Lubiprostone [Amitiza 24 Mcg Capsule] 24 mcg PO Q12 04/13/16 Metoprolol Succinate [Toprol XL 100 mg Tablet] 100 mg PO DAILY 04/13/16 Ondansetron HCl [Zofran 8 mg Tablet] 8 mg PO Q8HP PRN 04/13/16 Pregabalin [Lyrica] 75 mg PO BID 04/13/16 Tramadol HCl/Acetaminophen [Tramadol-Acetaminophn 37.5-325] 1 tab PO Q6HP PRN History of Present Illness History of Present Illness: MARIOLA GAR is a 56 year old female, she has a history of end-stage renal disease on maintenance hemodialysis, she had chest pain for the last few days, the chest pain is intermittent is pressure-like, she thought dialysis would resolve the chest pain , so she kept her Scheduled outpatient hemodialysis and during dialysis she had episode of chest pressure, the dialysis session was not completed, she was sent to the emergency room for evaluation of the chest pain. She was seen and evaluated in the emergency room, a 12-lead EKG was done and it showed sinus rhythm with no definite ST-T wave segment changes. Admission was advised, because of the risk of cardiorenal syndrome, the incidence of coronary artery disease is in the setting of end-stage renal disease. She has suspicious chest syndrome, she had a Lexiscan stress test on 05/08/2015.The conclusion of the stress test was that that is probably no scintigraphic evidence of lexiscan induced ischemia. There is no scintigraphic evidence of myocardial infarction Hospital Course Hospital Course: Patient was admitted because of his suspected acute coronary syndrome, 3 sets of cardiac enzymes were indeterminate, she had lexiscan Cardiolite stress is done today and there was no scintigraphic evidence of reversible ischemia or myocardial scar but the ejection fraction was low, a 2D echo will be ordered as outpatient. She had a history of end-stage renal disease on hemodialysis and she was seen by nephrology on this admission she underwent dialysis on this admission. She was initially admitted for observation but this was transitioned to inpatient care because of the suspicion for acute coronary syndrome. Physical Exam Vital Signs: Temp Pulse Resp BP Pulse Ox 97.4 F 64 18 102/42 L 99 04/16/16 18:23 04/16/16 18:23 04/16/16 18:23 04/16/16 18:23 04/16/16 18:23 Intake & Output 04/15/16 04/16/16 04/17/16 06:59 06:59 06:59 Intake Total 123 Output Total 0 Balance 123 General appearance: PRESENT: no acute distress, well-developed, well-nourished Head exam: PRESENT: atraumatic, normocephalic Eye exam: PRESENT: conjunctiva pink, EOMI, PERRLA. ABSENT: scleral icterus Ear exam: PRESENT: normal external ear exam Mouth exam: PRESENT: moist, tongue midline Neck exam: PRESENT: full ROM Respiratory exam: PRESENT: clear to auscultation charity Cardiovascular exam: PRESENT: RRR, +S1, +S2 Pulses: PRESENT: normal dorsalis pedis pul, +2 pedal pulses bilateral Vascular exam: PRESENT: normal capillary refill GI/Abdominal exam: PRESENT: normal bowel sounds, soft Rectal exam: PRESENT: deferred Neurological exam: PRESENT: alert, awake, oriented to person, oriented to place , oriented to time, oriented to situation, CN II-XII grossly intact. ABSENT: motor sensory deficit Psychiatric exam: PRESENT: appropriate affect, normal mood Skin exam: PRESENT: dry, intact, warm. ABSENT: cyanosis, rash Results Impressions: Chest X-Ray 04/13/16 10:24 IMPRESSION: Cardiomegaly. No acute infiltrates
== END 2016-04-16 20:25 | disposition home or self-care (01) | DRG 682 ==
LOC: ER 10:05 → UNDOADMOB 13:22 → EH 13:22 → 3S 04-14 14:52 → OBSVTOIN 04-16 10:41
PROVIDERS: ADMIT Internal Medicine; ATTEND Internal Medicine
PROC: 5A1D00Z (ICD-10-PCS; principal; 2016-04-16)
DX: I12.0 Hypertensive chronic kidney disease with stage 5 chronic kidney disease or end stage renal disease (principal); I50.43 Acute on chronic combined systolic (congestive) and diastolic (congestive) heart failure; N18.6 End stage renal disease; R07.9 Chest pain, unspecified; E11.22 Type 2 diabetes mellitus with diabetic chronic kidney disease; E78.5 Hyperlipidemia, unspecified; E03.9 Hypothyroidism, unspecified; G47.30 Sleep apnea, unspecified; F32.9 Major depressive disorder, single episode, unspecified; Z99.2 Dependence on renal dialysis; Z79.4 Long term (current) use of insulin; Z79.899 Other long term (current) drug therapy
CPT/HCPCS: 36415; 71010; 78452; 80048; 80053; 80061; 82550; 82553; 82962; 83880; 84484; 85025; 85027; 85610; 93005; 93010; 93017; 93306; 99285; A9500; G0378; J1815; J2785; J3490; Q9969

== ENCOUNTER → 2016-05-05 | Outpatient (CLI) | payer MEDICARE, MEDICAID | LOC: RAD 11:21 | PROVIDERS: ATTEND Internal Medicine | DX: R26.89 Other abnormalities of gait and mobility (principal) | CPT/HCPCS: 70551 ==

== ENCOUNTER 2016-05-12 10:19 | Emergency (ER) | payer MEDICARE, MEDICAID ==
[2016-05-12] MEDS ORDERED: ASPIRIN 81 MG TABLET, CHEWABLE PO ONE (10:42)
[2016-05-12] MEDS ORDERED: NITROGLYCERIN 0.4 MG/TAB 25 TAB/BOTTLE SL PRN (10:43)
--- NOTE | 2016-05-12 10:59 | ER Document Report ---
ED General - General Stated Complaint: CHEST PAIN Mode of Arrival: Medic Information source: Patient, Emergency Med Personnel Notes: Patient presents to the emergency department with reports of chest pain. Patient was at dialysis when she started having chest pain. She reports it sometimes happens to take too much fluid off. She reports she usually has dialysis on Tuesday and Tuesday. Patient had her return today because getting in enough fluid off yesterday. She reports 3 L of fluid was removed today. She reports she's having chest pain under her left breast but it feels better when she holds pressure against her chest. She reports the pain when she received 1 sublingual nitroglycerin. The pain then returned upon arrival to the hospital. She reports some nausea but denies fever vomiting diarrhea. She reports she thinks she is nauseated because she took her insulin but she did not yet. Patient has a long complicated history to include arthritis, Gout, VA CHF CAD hypertension ESRD diabetes1 stroke. TRAVEL OUTSIDE OF THE [place] IN LAST 30 DAYS: No - HPI Onset: Just prior to arrival Onset/Duration: Waxing and waning Associated symptoms: Nausea Exacerbated by: Denies Relieved by: Denies Similar symptoms previously: Yes Recently seen / treated by doctor: No - Related Data Allergies/Adverse Reactions: labetalol [Labetalol] Allergy (Severe, Verified 04/13/16 10:22) swelling, sob Penicillins Allergy (Severe, Verified 04/13/16 10:22) itching Liraglutide [From Victoza] Adverse Reaction (Verified 04/13/16 10:22) nausea/vomitting Past Medical History - General Information source: Patient - Social History Smoking Status: Unknown if Ever Smoked Cigarette use (# per day): No Frequency of alcohol use: None Drug Abuse: None Lives with: Family Family History: Reviewed & Not Pertinent Patient has suicidal ideation: No Patient has homicidal ideation: No - Past Medical History Cardiac Medical History: Reports: Hx Congestive Heart Failure, Hx Coronary Artery Disease, Hx Heart Attack - 2007, Hx Hypercholesterolemia, Hx Hypertension Pulmonary Medical History: Reports: Hx Sleep Apnea - On CPap Denies: Hx Asthma, Hx Bronchitis, Hx COPD, Hx Pneumonia Neurological Medical History: Reports: Hx Cerebrovascular Accident. Denies: Hx Seizures Endocrine Medical History: Reports: Hx Diabetes Mellitus Type 1, Hx Diabetes Mellitus Type 2, Hx Hypothyroidism Renal/ Medical History: Reports: Hx End Stage Renal Disease. Denies: Hx Peritoneal Dialysis Musculoskeltal Medical History: Reports Hx Arthritis, Reports Hx Gout Psychiatric Medical History: Reports: Hx Depression Past Surgical History: Reports: Hx Appendectomy, Hx Section, Hx Cholecystectomy, Hx Hysterectomy - Abdominal, Hx Orthopedic Surgery - cancer removed from back, Other - parathyroidectomy, 3-1/2 glands removed on 01/13/2016 ; right adrenalectomy - Immunizations Hx Diphtheria, Pertussis, Tetanus Vaccination: Yes Hx Pneumococcal Vaccination: 02/18/15 Review of Systems - Review of Systems Notes: Review HPI for review of systems., All other systems negative Physical Exam - Vital signs Vitals: Resp Pulse Ox 15 98 05/12/16 10:57 05/12/16 10:57 - Notes Notes: PHYSICAL EXAMINATION: GENERAL: Looks tired, in no acute distress HEAD: Atraumatic, normocephalic. EYES: Pupils equal round extraocular movements intact, sclera anicteric, conjunctiva are normal. ENT: nares patent, oropharynx clear without exudates. Moist mucous membranes. NECK: Normal range of motion, supple without lymphadenopathy LUNGS: CTAB and equal. No wheezes rales or rhonchi. HEART: Regular rate and rhythm without murmurs - reports chest wall ttp under left breast ABDOMEN: Soft, no tenderness. No guarding, no rebound BACK: No c/o pain EXTREMITIES: Normal range of motion, no pitting edema. No cyanosis. NEUROLOGICAL: Cranial nerves grossly intact. Normal sensory/motor exams. PSYCH: Normal mood, normal affect. SKIN: Warm, Dry, normal turgor, no rashes or lesions noted Course - Re-evaluation Re-evalutation: 05/12/16 15:[address] Caraballo regarding patient patient history patient's chief complaint. Patient is no longer having chest pain she reports that it comes and goes. She reports this is typically what happens when too much fluid is pulled off from dialysis. Patient reports she feels safe to go home. She reports the pain usually goes away within a day and a half. - Vital Signs Vital signs: Temp Pulse Resp BP Pulse Ox 98.0 F 105 H 18 141/71 H 97 05/12/16 16:25 05/12/16 16:25 05/12/16 16:25 05/12/16 16:25 05/12/16 16:25 - Laboratory Result Diagrams: 05/12/16 11:02 05/12/16 11:02 Laboratory results interpreted by me: 05/12/16 05/12/16 11:02 11:02 RDW 16.0 H Potassium 5.8 H Chloride 92 L Anion Gap 20 H BUN 59 H Creatinine 9.25 H Est GFR ( Amer) 5 L Est GFR (Non-Af Amer) 4 L Glucose 172 H Direct Bilirubin 0.6 H Alkaline Phosphatase 294 H Total Protein 9.1 H - Diagnostic Test Radiology reviewed: Image reviewed, Reports reviewed - RAD/ CHEST SINGLE VIEW IMPRESSION: NO ACUTE RADIOGRAPHIC FINDING IN THE CHEST - EKG Interpretation by Me EKG shows normal: Sinus rhythm - 2nd EKG, No change When compared to previous EKG there are: No significant change Discharge - Discharge Clinical Impression: Chest pain Qualifiers: Chest pain type: unspecified Qualified Code(s): R07.9 - Chest pain, unspecified Condition: Stable Disposition: HOME, SELF-CARE Instructions: Chest Pain of Unclear Cause ([facility]) Additional Instructions: *You have been evaluated for chest pain post dialysis *Take your medication as prescribed *Follow up with your primary care provider within 3 *Return to ED for worsening condition, changes, needs *Return to ED if not better in 24 hours Referrals: ROBERTO SALDANA MD [Primary Care Provider] - Follow up in 3-5 days
[2016-05-12 11:58] LABS: ABSOLUTE BASOPHILS # (AUTO) 0.1 10^3/uL (0.0-0.2); ABSOLUTE EOSINOPHILS # (AUTO) 0.5 10^3/uL (0.0-0.6); ABSOLUTE LYMPHOCYTES (AUTO) 3.5 10^3/uL (0.5-4.7); ABSOLUTE MONOCYTES (AUTO) 0.8 10^3/uL (0.1-1.4); ABSOLUTE NEUT (AUTO) 4.8 10^3/uL (1.7-8.2); BASOPHILS % (AUTO) 1.4 % (0-2); EOSINOPHILS % (AUTO) 5.3 % (0-6); HEMOGLOBIN 14.2 g/dL (12.0-15.5); HGB HCT DIFFERENCE -0.4; LYMPHOCYTES % (AUTO) 35.5 % (13-45); MEAN CORPUSCULAR HEMOGLOBIN 29.3 pg (27.0-33.4); MEAN CORPUSCULAR HGB CONC 33.1 g/dL (32.0-36.0); MEAN CORPUSCULAR VOLUME 89 fl (80-97); MONOCYTES % (AUTO) 8.4 % (3-13); RED BLOOD COUNT 4.85 10^6/uL (3.72-5.28); SEGMENTED NEUTROPHILS % (AUTO) 49.4 % (42-78); WHITE BLOOD COUNT 9.8 10^3/uL (4.0-10.5)
[2016-05-12 12:23] LABS: ALANINE AMINOTRANSFERASE 25 U/L (9-52); ALBUMIN 4.8 g/dL (3.5-5.0); ALKALINE PHOSPHATASE 294 U/L (38-126); ASPARTATE AMINO TRANSFERASE 28 U/L (14-36); BILIRUBIN,DIRECT 0.6 mg/dL (0.0-0.4); BILIRUBIN,TOTAL 0.9 mg/dL (0.2-1.3); BLOOD UREA NITROGEN 59 mg/dL (7-20); CALCIUM 9.2 mg/dL (8.4-10.2); CARBON DIOXIDE 29 mmol/L (22-30); CHLORIDE 92 mmol/L (98-107); CREATINE KINASE 83 U/L (30-135); CREATININE RESULT 9.25 mg/dL (0.52-1.25); GLUCOSE 172 mg/dL (75-110); POTASSIUM 5.8 mmol/L (3.6-5.0); SODIUM 141.2 mmol/L (137-145); TOTAL PROTEIN 9.1 g/dL (6.3-8.2)
[2016-05-12 12:24] LABS: ANION GAP 20 (5-19)
[2016-05-12 12:30] LABS: CREATINE KINASE MB 0.3 ng/mL (<4.55); TROPONIN I 0.02 ng/mL
--- NOTE | 2016-05-12 15:08 | EKG REPORT ---
SEVERITY:- ABNORMAL ECG - SINUS RHYTHM PROBABLE LVH WITH SECONDARY REPOL ABNRM : Confirmed by: Lexii Thorne 12-May-2016 15:07:38
[2016-05-12 16:30] VITALS: BP 141/71
--- NOTE | 2016-05-13 08:16 | EKG REPORT ---
SEVERITY:- ABNORMAL ECG - SINUS RHYTHM PROBABLE LVH WITH SECONDARY REPOL ABNRM : Confirmed by: Lexii Thorne 13-May-2016 08:16:10
== END 2016-05-12 16:35 | disposition home or self-care (01) ==
LOC: ER 10:19
DX: R07.9 Chest pain, unspecified (principal); R11.0 Nausea; E10.22 Type 1 diabetes mellitus with diabetic chronic kidney disease; I13.2 Hypertensive heart and chronic kidney disease with heart failure and with stage 5 chronic kidney disease, or end stage renal disease; N18.6 End stage renal disease; I25.10 Atherosclerotic heart disease of native coronary artery without angina pectoris; Z99.2 Dependence on renal dialysis; Z79.4 Long term (current) use of insulin; I25.2 Old myocardial infarction; Z86.73 Personal history of transient ischemic attack (TIA), and cerebral infarction without residual deficits; Z88.0 Allergy status to penicillin
CPT/HCPCS: 36415; 71010; 80053; 82550; 82553; 84484; 85025; 93005; 93010; 99285

== ENCOUNTER 2016-05-16 10:59 | Emergency (ER) | payer MEDICARE, MEDICAID ==
[2016-05-16] MEDS ORDERED: ONDANSETRON 4 MG TAB.RAPDIS PO ONE (11:40)
--- NOTE | 2016-05-16 11:44 | ER Document Report ---
ED Medical Screen (RME) - General Chief Complaint: Vomiting Stated Complaint: VOMITING BLOOD TRAVEL OUTSIDE OF THE [place] IN LAST 30 DAYS: No - HPI Patient complains to provider of: vomiting blood Notes: 05/16/16 11:41 Patient hemodialysis patient states was receiving dialysis yesterday when she started vomiting. Patient states vomiting multiple times now having blood clots in the vomitus. - Related Data Allergies/Adverse Reactions: labetalol [Labetalol] Allergy (Severe, Verified 05/16/16 11:07) swelling, sob Penicillins Allergy (Severe, Verified 05/16/16 11:07) itching Liraglutide [From Victoza] Adverse Reaction (Verified 05/16/16 11:07) nausea/vomitting Past Medical History - Past Medical History Cardiac Medical History: Reports: Hx Congestive Heart Failure, Hx Coronary Artery Disease, Hx Heart Attack - 2007, Hx Hypercholesterolemia, Hx Hypertension Pulmonary Medical History: Reports: Hx Sleep Apnea - On CPap Denies: Hx Asthma, Hx Bronchitis, Hx COPD, Hx Pneumonia Neurological Medical History: Reports: Hx Cerebrovascular Accident. Denies: Hx Seizures Endocrine Medical History: Reports: Hx Diabetes Mellitus Type 1, Hx Diabetes Mellitus Type 2, Hx Hypothyroidism Renal/ Medical History: Reports: Hx End Stage Renal Disease. Denies: Hx Peritoneal Dialysis Musculoskeltal Medical History: Reports Hx Arthritis, Reports Hx Gout Psychiatric Medical History: Reports: Hx Depression Past Surgical History: Reports: Hx Appendectomy, Hx Section, Hx Cholecystectomy, Hx Hysterectomy - Abdominal, Hx Orthopedic Surgery - cancer removed from back, Other - parathyroidectomy, 3-1/2 glands removed on 01/13/2016 ; right adrenalectomy - Immunizations Hx Diphtheria, Pertussis, Tetanus Vaccination: Yes Review of Systems - Review of Systems Gastrointestinal: Nausea, Vomiting Physical Exam - Vital signs Vitals: Temp Pulse Resp BP Pulse Ox 98.4 F 107 H 17 135/58 H 96 05/16/16 11:09 05/16/16 11:09 05/16/16 11:05/16/16 11:05/16/16 11:09 - Cardiovascular Rhythm: Regular Course - Vital Signs Vital signs: Temp Pulse Resp BP Pulse Ox 98.4 F 107 H 17 135/58 H 96 05/16/16 11:09 05/16/16 11:09 05/16/16 11:09 05/16/16 11:09 05/16/16 11:09
[2016-05-16 12:22] LABS: ABSOLUTE BASOPHILS # (AUTO) 0.1 10^3/uL (0.0-0.2); ABSOLUTE EOSINOPHILS # (AUTO) 0.4 10^3/uL (0.0-0.6); ABSOLUTE LYMPHOCYTES (AUTO) 2.5 10^3/uL (0.5-4.7); ABSOLUTE MONOCYTES (AUTO) 0.6 10^3/uL (0.1-1.4); ABSOLUTE NEUT (AUTO) 4.3 10^3/uL (1.7-8.2); BASOPHILS % (AUTO) 1.6 % (0-2); EOSINOPHILS % (AUTO) 4.7 % (0-6); HEMATOCRIT 41.4 % (36.0-47.0); HEMOGLOBIN 13.9 g/dL (12.0-15.5); HGB HCT DIFFERENCE 0.3; LYMPHOCYTES % (AUTO) 31.7 % (13-45); MEAN CORPUSCULAR HEMOGLOBIN 29.4 pg (27.0-33.4); MEAN CORPUSCULAR HGB CONC 33.5 g/dL (32.0-36.0); MEAN CORPUSCULAR VOLUME 88 fl (80-97); MONOCYTES % (AUTO) 7.2 % (3-13); RED BLOOD COUNT 4.73 10^6/uL (3.72-5.28); RED CELL DISTRIBUTION WIDTH 15.3 % (11.5-14.0); SEGMENTED NEUTROPHILS % (AUTO) 54.8 % (42-78); WHITE BLOOD COUNT 7.9 10^3/uL (4.0-10.5)
[2016-05-16 12:30] LABS: PROTHROMBIN TIME 13.7 SEC (11.4-15.4)
[2016-05-16 12:31] LABS: PARTIAL THROMBOPLASTIN TIME 31.3 SEC (23.5-35.8)
[2016-05-16 12:42] LABS: ANION GAP 16 (5-19); BLOOD UREA NITROGEN 53 mg/dL (7-20); CALCIUM 8.6 mg/dL (8.4-10.2); CARBON DIOXIDE 32 mmol/L (22-30); CHLORIDE 94 mmol/L (98-107); CREATININE RESULT 9.71 mg/dL (0.52-1.25); GLUCOSE 297 mg/dL (75-110); POTASSIUM 5.4 mmol/L (3.6-5.0); SODIUM 142.1 mmol/L (137-145)
[2016-05-16] MEDS ORDERED: PANTOPRAZOLE SODIUM 40 MG VIAL IV ONE (13:10)
[2016-05-16] MEDS ORDERED: METOCLOPRAMIDE HCL INJ/PF 10 MG/2 ML SDV IV ONE (13:35)
--- NOTE | 2016-05-16 13:47 | ER Document Report ---
ED GI/ - General Mode of Arrival: Ambulatory Information source: Patient TRAVEL OUTSIDE OF THE [place] IN LAST 30 DAYS: No - HPI Patient complains to provider of: Abdominal pain, Vomiting - hematemesis. No: Diarrhea Onset: Yesterday Location: Other - generalized with increase pain to the LUQ Associated symptoms: Other - see notes above Relieved by: Sitting - in certain position <AMPARO DASH - Last Filed: 05/16/16 18:19> <MANJU PLATT - Last Filed: 05/16/16 18:55> - General Chief Complaint: Vomiting Stated Complaint: VOMITING BLOOD Notes: 56 year old female with history of end stage renal disease (dialysis patient; //Tue; does not produce urine) presents to the ED complaining of generalized abdominal pain and hematemesis that started last night. Patient reports that the pain is worse to the LUQ. Patient explains that she started vomiting blood last night and it was "pouring out" of her mouth and nose. Patient reports that when she blows her nose it contains blood too. Patient proceeded to have another hematemesis episode earlier this morning prior to arrival. Patient has been constipated since last week and reports to taking Amitiza 4 days ago which resulted in a bowel movement. Patient complains of being constipated currently, but states that the abdominal pain is different from past constipation. Patient' s vice president of development is Dr. Zaidi. (AMPARO DASH) - Related Data Allergies/Adverse Reactions: labetalol [Labetalol] Allergy (Severe, Verified 05/16/16 11:07) swelling, sob Penicillins Allergy (Severe, Verified 05/16/16 11:07) itching Liraglutide [From Victoza] Adverse Reaction (Verified 05/16/16 11:07) nausea/vomitting Past Medical History - General Information source: Patient - Social History Smoking Status: Unknown if Ever Smoked Family History: Reviewed & Not Pertinent Patient has suicidal ideation: No Patient has homicidal ideation: No - Past Medical History Cardiac Medical History: Reports: Hx Congestive Heart Failure, Hx Coronary Artery Disease, Hx Heart Attack - 2007, Hx Hypercholesterolemia, Hx Hypertension Pulmonary Medical History: Reports: Hx Sleep Apnea - On CPap Neurological Medical History: Reports: Hx Cerebrovascular Accident. Denies: Hx Seizures Endocrine Medical History: Reports: Hx Diabetes Mellitus Type 2, Hx Hypothyroidism Renal/ Medical History: Reports: Hx End Stage Renal Disease. Denies: Hx Peritoneal Dialysis Musculoskeltal Medical History: Reports Hx Arthritis, Reports Hx Gout Psychiatric Medical History: Reports: Hx Depression Past Surgical History: Reports: Hx Appendectomy, Hx Section, Hx Cholecystectomy, Hx Hysterectomy - Abdominal, Hx Orthopedic Surgery - cancer removed from back, Other - parathyroidectomy, 3-1/2 glands removed on 01/13/2016 ; right adrenalectomy - Immunizations Hx Diphtheria, Pertussis, Tetanus Vaccination: Yes Hx Pneumococcal Vaccination: 02/18/15 <AMPARO DASH - Last Filed: 05/16/16 18:19> Review of Systems - Review of Systems Constitutional: No symptoms reported EENT: No symptoms reported Cardiovascular: No symptoms reported Respiratory: No symptoms reported Gastrointestinal: See HPI, Abdominal pain, Constipation, Blood in vomit. denies : Diarrhea Genitourinary: No symptoms reported Female Genitourinary: No symptoms reported Musculoskeletal: No symptoms reported Skin: No symptoms reported Hematologic/Lymphatic: No symptoms reported Neurological/Psychological: No symptoms reported -: Yes All other systems reviewed and negative <AMPARO DASH - Last Filed: 05/16/16 18:19> Physical Exam - General General appearance: Alert In distress: None - HEENT Head: Normocephalic, Atraumatic Eyes: Normal Extraocular movements intact: Yes Pupils: PERRL - Respiratory Respiratory status: No respiratory distress Breath sounds: Normal - Cardiovascular Rhythm: Regular Heart sounds: Normal auscultation - Abdominal Inspection: Normal Distension: No distension Tenderness: Tender - mild epigastric tenderness to palpation - Back Back: Normal, Nontender - Extremities General upper extremity: Normal inspection, Normal ROM General lower extremity: Normal inspection, Normal ROM - Neurological Neuro grossly intact: Yes Cognition: Normal Orientation: AAOx4 [place] Coma Scale Eye Opening: Spontaneous [place] Coma Scale Verbal: Oriented Carolyn Coma Scale Motor: Obeys Commands Carolyn Coma Scale Total: 15 Speech: Normal - Psychological Associated symptoms: Normal affect, Normal mood - Skin Skin Temperature: Warm Skin Moisture: Dry Skin Color: Normal <AMPARO DASH - Last Filed: 05/16/16 18:19> Course - Laboratory Result Diagrams: 05/16/16 11:45 05/16/16 11:45 - Consults Dr. Saldana Time consulted: 13:08 <AMPARO DASH - Last Filed: 05/16/16 18:19> - Laboratory Result Diagrams: 05/16/16 11:45 05/16/16 11:45 <MANJU PLATT - Last Filed: 05/16/16 18:55> - Re-evaluation Re-evalutation: 05/16/16 Patient with no further vomiting in the emergency department. No abdominal pain. Patient with no changes on blood work. Hemoglobin is stable. Patient was discussed with her primary doctor. Patient would prefer to go home at this time and follow up with her doctor. Dr. Saldana is in agreement with this plan. Stable for discharge. (MANJU PLATT) - Vital Signs Vital signs: Temp Pulse Resp BP Pulse Ox 98.4 F 102 H 17 152/99 H 99 05/16/16 11:09 05/16/16 17:56 05/16/16 17:56 05/16/16 17:56 05/16/16 17:56 - Laboratory Laboratory results interpreted by me: 05/16/16 05/16/16 11:45 11:45 RDW 15.3 H Potassium 5.4 H Chloride 94 L Carbon Dioxide 32 H BUN 53 H Creatinine 9.71 H Est GFR ( Amer) 5 L Est GFR (Non-Af Amer) 4 L Glucose 297 H - Consults Dr. Saldana Reason for consultation: 05/16/16 13:08 Dr. Saldana was called to inquire if the patient has a history of gastric disease or anemia. Dr. Saldana denies any such history. (AMPARO DASH) Discharge <AMPARO DASH - Last Filed: 05/16/16 18:19> <MANJU PLATT - Last Filed: 05/16/16 18:55> - Discharge Clinical Impression: Epigastric pain, End stage renal disease on dialysis Vomiting Qualifiers: Vomiting type: unspecified Vomiting Intractability: non-intractable Nausea presence: with nausea Qualified Code(s): R11.2 - Nausea with vomiting, unspecified Condition: Stable Disposition: HOME, SELF-CARE Instructions: Vomiting, or Child ([facility]), Abdominal Pain ([facility]) Prescriptions: Metoclopramide HCl [Reglan 10 mg Tablet] 1 - 2 tab PO ASDIR PRN #25 tablet PRN Reason: Referrals: ROBERTO SALDANA MD [Primary Care Provider] - Follow up as needed Scribe Attestation: 05/16/16 18:55 I personally performed the services described in the documentation, reviewed and edited the documentation which was dictated to the scribe in my presence, and it accurately records my words and actions. (MANJU PLATT) Scribe Documentation - Scribe Written by Florecitae:: Christian Hdez, 05/16/2016 1510 acting as scribe for :: Gisele <AMPARO DASH - Last Filed: 05/16/16 18:19>
[2016-05-16] MEDS ORDERED: DICYCLOMINE HCL INJ 20 MG/2 ML AMPULE IM ONE (14:46)
[2016-05-16 17:57] VITALS: BP 152/99
== END 2016-05-16 18:00 | disposition home or self-care (01) ==
LOC: ER 10:59
DX: R10.13 Epigastric pain (principal); N18.6 End stage renal disease; R11.2 Nausea with vomiting, unspecified; R11.10 Vomiting, unspecified; R10.12 Left upper quadrant pain; Z99.2 Dependence on renal dialysis
CPT/HCPCS: 99283; 96372; 96374; 96375; 86900; 86901; 36415; 86850; 85025; 85610; 85730; 80048; J0500; A9270; J2765; C9113; S0119; S0164

== ENCOUNTER → 2016-07-30 | Outpatient (CLI) | payer MEDICARE, MEDICAID ==
--- NOTE | 2016-07-30 18:16 | WOMENS IMAGING REPORT ---
EXAM DESCRIPTION: 3D SCREENING MAMMO BILAT COMPLETED DATE/TIME: 07/30/2016 10:42 am REASON FOR STUDY: ROUTINE SCREENING 3D; Z12.31 Z12.31 ENCNTR SCREEN MAMMOGRAM FOR MALIGNANT NEOPLAS M [facility] COMPARISON: 12/30/2010 TECHNIQUE: Standard craniocaudal and mediolateral oblique views of each breast recorded using digita l acquisition and breast tomosynthesis. LIMITATIONS: None. FINDINGS: Findings present which are benign by mammographic criteria. No suspicious masses, calcifi cations or architectural distortion. Pertinent benign findings: Benign breast calcifications bilaterally Read with the assistance of CAD. .[facility] - R2 Cenova Version 1.3 .[facility] - R2 Cenova Version 1.3 .[facility] - R2 Cenova Version 2.4 .[facility] - R2 Cenova Version 2.4 .[facility] - R2 National Account Manager Version 9.2 Benign mammographic findings may include one or more of the following: Smooth masses, popcorn/rim/co arse calcifications, asymmetries, post-procedure changes, and lesions with long-standing stability. IMPRESSION: BENIGN MAMMOGRAPHIC FINDINGS. BIRADS 2 BREAST DENSITY: b. There are scattered areas of fibroglandular density. BIRAD: 2 BENIGN FINDING(S) RECOMMENDATION: RECOMMENDATION: ROUTINE SCREENING COMMENT: The patient has been notified of the results by letter per SA requirements. Additional no tification policies are in place for contacting patient with suspicious or incomplete findings. Quality ID #[id number]: The [employer] recommends an annual screening mammogram for women aged 40 years or over. This facility utilizes a reminder system to ensure that all patients receive reminder letters, and/or direct phone calls for appointments. This includes reminders for routine scr eening mammograms, diagnostic mammograms, or other Breast Imaging Interventions when appropriate. Th is patient will be placed in the appropriate reminder system. The [employer] (ACR) has developed recommendations for screening MRI of the breast s in certain patient populations, to be used in conjunction with mammography. Breast MRI surveillanc e may be appropriate for women with more than 20% lifetime risk of developing breast cancer as deter mined by genetic testing, significant family history of the disease, or history of mantle radiation f or Hodgkins Disease. ACR Practice Guidelines 2008. DBT Technology DBT is a type of tomographic mammography. With conventional mammography, overlapping breast tissue ma y make lesions difficult to detect, even with good compression. DBT uses an x-ray tube that rotates a round the breast, taking images at different angles. These images are then combined to create thin sl ices of the breast that the radiologist can view as a 3D reconstruction. The M[employer]oplex unit can perform full-field digital mammograms (2D imaging); or DBT (3D imaging); or both, in a combination mode that quickly performs both the mammogram and the tomosynthesis scan while the breast is still compressed. PQRS 6045F: Fluoroscopic imaging is not utilized for breast tomosynthesis. TECHNICAL DOCUMENTATION: FINDING NUMBER: (1) ASSESSMENT: (1) JOB ID: [id number] [employer]- All Rights Reserved
== END ==
LOC: WI 10:20
PROVIDERS: ATTEND Internal Medicine
DX: Z12.31 Encounter for screening mammogram for malignant neoplasm of breast (principal)
CPT/HCPCS: 77063; G0202; 77067

== ENCOUNTER → 2016-10-13 | Outpatient (CLI) | payer MEDICARE, MEDICAID ==
--- NOTE | 2016-10-13 16:16 | RADIOLOGY REPORT (SQ) ---
EXAM DESCRIPTION: MRI LUMBAR SPINE WITHOUT COMPLETED DATE/TIME: 10/13/2016 3:31 pm REASON FOR STUDY: RADICULOPATHY, LUMBAR M54.16 RADICULOPATHY, LUMBAR REGION COMPARISON: MRI brain 05/05/2016 CT abdomen pelvis 06/27/2012 TECHNIQUE: Sagittal and Axial imaging includes T1, T2, STIR and gradient echo sequences. Coronal T2/ HASTE imaging. LIMITATIONS: None. FINDINGS: VISUALIZED UPPER ABDOMEN: Limited evaluation. No acute or suspicious findings suggested. SEGMENTATION: No transitional anatomy. The lowest well-developed disc space is labeled L5-S1. ALIGNMENT: Anatomic. VERTEBRAE: Intact. BONE MARROW: Overall markedly depressed marrow fat content throughout the visualized spine and bony p rodrigo. This is worrisome for red marrow conversion. A myelodysplastic or myelofibrotic syndrome is also possible. There is mild edematous vertebral body endplate change at L4-5, and fatty degenerativ e endplate changes at T10-11 and L5-S1. DISC SIGNAL: Diffuse decreased T2 weighted intervertebral disc signal POSTERIOR ELEMENTS: Generally intact. No pars defect evident. HARDWARE: None in the spine. CORD AND CONUS: Normal in size and signal intensity. Conus at the L1-2 level. SOFT TISSUES: No aortic aneurysm seen. No bulky retroperitoneal adenopathy or mass. No paraspinal mas s or fluid. T10-11: At the upper edge of the field of view. There is disc space loss of height with vertebral b eric endplate sclerosis. Broad diffuse posterior disc bulging and moderate bilateral facet and ligame nt hypertrophy cause borderline central canal stenosis, and moderate bilateral foraminal narrowing. T11-12: No significant posterior disc bulging. Moderate bilateral foraminal narrowing from facet hy pertrophy. T12-L1: No significant posterior disc bulging or foraminal stenosis. Mild bilateral facet hypertrop hy. L1-L2: Small central disc herniation without significant mass effect on the thecal sac. Mild bilater al facet and ligament hypertrophy. No significant central or foraminal encroachment. L2-L3: Minimal posterior disc bulging, mild bilateral facet and ligament hypertrophy. No central or foraminal encroachment. L3-L4: Broad diffuse posterior disc bulging and moderate bilateral facet and ligament hypertrophy is present. There is mild central canal stenosis with flattening of the thecal sac into a triangular sh ape, best shown on axial T2 image 18. Moderate bilateral foraminal narrowing is present without defi nite exiting L3 nerve root impingement. L4-L5: Broad diffuse posterior disc bulging and moderate bilateral facet and ligament hypertrophy cau se mild central canal stenosis, with flattening of the thecal sac into a triangular shape. Best show n on axial T2 images 23 and 24. There is high-grade right and left foraminal stenosis, with effaceme nt of the fat around the bilateral L4 nerve roots in the neural foramina. L5-S1: Broad diffuse posterior disc bulge and bony spurring is present left greater than right. This finding along with bulky bilateral facet and ligament hypertrophy causes mild central canal narrowin g. There is flattening of thecal sac bilaterally at the takeoff of the S1 nerve roots in the lateral recess, best shown on axial image 30. High-grade bilateral foraminal stenosis is present with effac ement of fat around the exiting L5 nerve roots. SACRUM: Visualized upper sacrum intact. OTHER: No other significant findings. IMPRESSION: Significantly decreased fatty marrow content may reflect red marrow conversion. Myelody splastic or myelo fibrotic syndrome could not be excluded. High-grade bilateral foraminal narrowing at L4-5 and L5-S1 as above. TECHNICAL DOCUMENTATION: JOB ID: [id number] [employer]- All Rights Reserved
== END ==
LOC: RAD 13:58
PROVIDERS: ATTEND Internal Medicine
DX: M54.16 Radiculopathy, lumbar region (principal)
CPT/HCPCS: 72148

== ENCOUNTER 2017-01-09 11:02 | Emergency (ER) | payer MEDICARE, MEDICAID ==
[2017-01-09] MEDS ORDERED: ONDANSETRON 4 MG TAB.RAPDIS PO ONE (11:31)
[2017-01-09] MEDS ORDERED: KETOROLAC TROMETHAMINE INJ/PF 30 MG/1 ML SDV IV ONE (11:31)
--- NOTE | 2017-01-09 11:38 | ER Document Report ---
ED Medical Screen (RME) - General Chief Complaint: Nausea/Vomiting Stated Complaint: BLOOD SUGAR PROBLEM Time Seen by Provider: 01/09/17 11:29 Notes: Patient says she has been ill since Tuesday with nausea and constipation followed by some vomiting. She is a dialysis patient and was dialyzed Tuesday. Has not missed her dialysis. Think she may have a hemorrhoid because there is pain and swelling "back there in the middle" not aware of any fever. Patient is an insulin-dependent diabetic TRAVEL OUTSIDE OF THE [place] IN LAST 30 DAYS: No - Related Data Allergies/Adverse Reactions: labetalol [Labetalol] Allergy (Severe, Verified 01/09/17 11:14) swelling, sob Penicillins Allergy (Severe, Verified 01/09/17 11:14) itching Liraglutide [From Victoza] Adverse Reaction (Verified 01/09/17 11:14) nausea/vomitting Past Medical History - Past Medical History Cardiac Medical History: Reports: Hx Congestive Heart Failure, Hx Coronary Artery Disease, Hx Heart Attack - 2007, Hx Hypercholesterolemia, Hx Hypertension Pulmonary Medical History: Reports: Hx Sleep Apnea - On CPap Denies: Hx Asthma, Hx Bronchitis, Hx COPD, Hx Pneumonia Neurological Medical History: Reports: Hx Cerebrovascular Accident. Denies: Hx Seizures Endocrine Medical History: Reports: Hx Diabetes Mellitus Type 1, Hx Diabetes Mellitus Type 2, Hx Hypothyroidism Renal/ Medical History: Reports: Hx End Stage Renal Disease. Denies: Hx Peritoneal Dialysis Musculoskeltal Medical History: Reports Hx Arthritis, Reports Hx Gout Psychiatric Medical History: Reports: Hx Depression Past Surgical History: Reports: Hx Appendectomy, Hx Section, Hx Cholecystectomy, Hx Hysterectomy - Abdominal, Hx Orthopedic Surgery - cancer removed from back, Other - parathyroidectomy, 3-1/2 glands removed on 01/13/2016 ; right adrenalectomy - Immunizations Hx Diphtheria, Pertussis, Tetanus Vaccination: Yes Physical Exam - Vital signs Vitals: Temp Pulse Resp BP Pulse Ox 98 F 97 16 171/79 H 98 01/09/17 11:15 01/09/17 11:15 01/09/17 11:15 01/09/17 11:15 01/09/17 11:15 Course - Vital Signs Vital signs: Temp Pulse Resp BP Pulse Ox 98 F 97 16 171/79 H 98 01/09/17 11:15 01/09/17 11:15 01/09/17 11:15 11/26/17 11:15 01/09/17 11:15
[2017-01-09 12:13] LABS: ABSOLUTE BASOPHILS # (AUTO) 0.2 10^3/uL (0.0-0.2); ABSOLUTE EOSINOPHILS # (AUTO) 0.5 10^3/uL (0.0-0.6); ABSOLUTE LYMPHOCYTES (AUTO) 2.2 10^3/uL (0.5-4.7); ABSOLUTE MONOCYTES (AUTO) 0.8 10^3/uL (0.1-1.4); ABSOLUTE NEUT (AUTO) 7.7 10^3/uL (1.7-8.2); BASOPHILS % (AUTO) 1.4 % (0-2); EOSINOPHILS % (AUTO) 4.1 % (0-6); HEMATOCRIT 34.5 % (36.0-47.0); HEMOGLOBIN 11.1 g/dL (12.0-15.5); HGB HCT DIFFERENCE -1.2; LYMPHOCYTES % (AUTO) 19.3 % (13-45); MEAN CORPUSCULAR HEMOGLOBIN 27.6 pg (27.0-33.4); MEAN CORPUSCULAR HGB CONC 32.2 g/dL (32.0-36.0); MEAN CORPUSCULAR VOLUME 86 fl (80-97); MONOCYTES % (AUTO) 7.4 % (3-13); RED BLOOD COUNT 4.02 10^6/uL (3.72-5.28); SEGMENTED NEUTROPHILS % (AUTO) 67.8 % (42-78); WHITE BLOOD COUNT 11.4 10^3/uL (4.0-10.5)
[2017-01-09] MEDS ORDERED: NORMAL SALINE 250 ML IV ONE (12:18)
[2017-01-09] MEDS ORDERED: METOCLOPRAMIDE HCL INJ/PF 10 MG/2 ML SDV IV ONE (12:19)
[2017-01-09 12:30] LABS: ALANINE AMINOTRANSFERASE 24 U/L (9-52); ALKALINE PHOSPHATASE 194 U/L (38-126); ANION GAP 18 (5-19); ASPARTATE AMINO TRANSFERASE 16 U/L (14-36); BILIRUBIN,DIRECT 0.7 mg/dL (0.0-0.4); BLOOD UREA NITROGEN 34 mg/dL (7-20); CALCIUM 8.8 mg/dL (8.4-10.2); CARBON DIOXIDE 29 mmol/L (22-30); CHLORIDE 90 mmol/L (98-107); CREATININE RESULT 7.73 mg/dL (0.52-1.25); GLUCOSE 367 mg/dL (75-110); POTASSIUM 5.2 mmol/L (3.6-5.0); SODIUM 136.6 mmol/L (137-145); TOTAL PROTEIN 7.8 g/dL (6.3-8.2)
--- NOTE | 2017-01-09 13:33 | ER Document Report ---
ED General - General Chief Complaint: Nausea/Vomiting Stated Complaint: BLOOD SUGAR PROBLEM Time Seen by Provider: 01/09/17 11:29 TRAVEL OUTSIDE OF THE [place] IN LAST 30 DAYS: No - HPI Patient complains to provider of: Nausea vomiting diarrhea elevated blood sugar Notes: Patient coming in for evaluation of nausea vomiting diarrhea and elevated blood sugar. Patient states unable to eat anything for the last 2 days. Patient has end-stage renal disease patient normally gets her dialysis every Tuesday. Patient states she did receive her dialysis yesterday. Denies any recent antibiotics. Patient also is concerned about a hemorrhoid that she may be developing. Patient resting comfortably upon my evaluation. - Related Data Allergies/Adverse Reactions: labetalol [Labetalol] Allergy (Severe, Verified 01/09/17 11:14) swelling, sob Penicillins Allergy (Severe, Verified 01/09/17 11:14) itching Liraglutide [From Victoza] Adverse Reaction (Verified 01/09/17 11:14) nausea/vomitting Home Medications: Current Home Medications Diphenhydramine HCl [Benadryl] 25 mg PO ASDIR PRN 01/09/17 [History] Doxepin HCl 75 mg PO QHS 01/09/17 [History] Gabapentin 300 mg PO TID 01/09/17 [History] Hydrocortisone [Cortisone] 60 gm TP ASDIR PRN 01/09/17 [History] Hydroxyzine HCl 25 mg PO TID 01/09/17 [History] Metoprolol Tartrate 50 mg PO DAILY 01/09/17 [History] Pioglitazone HCl 15 mg PO DAILY 01/09/17 [History] Pravastatin Sodium 80 mg PO DAILY 01/09/17 [History] Trazodone HCl 100 mg PO QHS 01/09/17 [History] Past Medical History - Social History Smoking Status: Unknown if Ever Smoked Chew tobacco use (# tins/day): No Frequency of alcohol use: None Drug Abuse: None Family History: Reviewed & Not Pertinent Patient has suicidal ideation: No Patient has homicidal ideation: No - Past Medical History Cardiac Medical History: Reports: Hx Congestive Heart Failure, Hx Coronary Artery Disease, Hx Heart Attack - 2007, Hx Hypercholesterolemia, Hx Hypertension Pulmonary Medical History: Reports: Hx Sleep Apnea - On CPap Denies: Hx Asthma, Hx Bronchitis, Hx COPD, Hx Pneumonia Neurological Medical History: Reports: Hx Cerebrovascular Accident. Denies: Hx Seizures Endocrine Medical History: Reports: Hx Diabetes Mellitus Type 1, Hx Diabetes Mellitus Type 2, Hx Hypothyroidism Renal/ Medical History: Reports: Hx End Stage Renal Disease. Denies: Hx Peritoneal Dialysis Musculoskeltal Medical History: Reports Hx Arthritis, Reports Hx Gout Psychiatric Medical History: Reports: Hx Depression Past Surgical History: Reports: Hx Appendectomy, Hx Section, Hx Cholecystectomy, Hx Hysterectomy - Abdominal, Hx Orthopedic Surgery - cancer removed from back, Other - parathyroidectomy, 3-1/2 glands removed on 01/13/2016 ; right adrenalectomy - Immunizations Hx Diphtheria, Pertussis, Tetanus Vaccination: Yes Hx Pneumococcal Vaccination: 02/18/15 Review of Systems - Review of Systems Constitutional: No symptoms reported EENT: No symptoms reported Cardiovascular: No symptoms reported Respiratory: No symptoms reported Gastrointestinal: Diarrhea, Nausea, Vomiting Genitourinary: No symptoms reported Female Genitourinary: No symptoms reported Musculoskeletal: No symptoms reported Skin: No symptoms reported Hematologic/Lymphatic: No symptoms reported Neurological/Psychological: No symptoms reported -: Yes All other systems reviewed and negative Physical Exam - Vital signs Vitals: Temp Pulse Resp BP Pulse Ox 98 F 97 16 171/79 H 98 01/09/17 11:15 01/09/17 11:15 01/09/17 11:15 01/09/17 11:15 01/09/17 11:15 Interpretation: Normal - General General appearance: Appears well, Alert - HEENT Head: Normocephalic, Atraumatic Eyes: Normal Pupils: PERRL - Respiratory Respiratory status: No respiratory distress Chest status: Nontender Breath sounds: Normal Chest palpation: Normal - Cardiovascular Rhythm: Regular Heart sounds: Normal auscultation Murmur: No - Abdominal Inspection: Normal Distension: No distension Bowel sounds: Normal Tenderness: Nontender Organomegaly: No organomegaly - Rectal Hemorrhoids: External - Back Back: Normal, Nontender - Extremities General upper extremity: Normal inspection, Nontender, Normal color, Normal ROM , Normal temperature, Other - AV fistula in the left arm with a palpable thrill General lower extremity: Normal inspection, Nontender, Normal color, Normal ROM , Normal temperature, Normal weight bearing. No: Onur's sign - Neurological Neuro grossly intact: Yes Cognition: Normal Orientation: AAOx4 Carolyn Coma Scale Eye Opening: Spontaneous Woden Coma Scale Verbal: Oriented Carolyn Coma Scale Motor: Obeys Commands Carolyn Coma Scale Total: 15 Speech: Normal Motor strength normal: LUE, RUE, LLE, RLE Sensory: Normal - Psychological Associated symptoms: Normal affect, Normal mood - Skin Skin Temperature: Warm Skin Moisture: Dry Skin Color: Normal Course - Re-evaluation Re-evalutation: 01/09/17 15:04 Lab work does not show any critical pathology. No signs of fluid overload. Patient was given a 250 bolus of fluid for possible dehydration. Patient encouraged to continue to take Reglan will give citalopram and directed care for hemorrhoids. Patient will be discharged home. - Vital Signs Vital signs: Temp Pulse Resp BP Pulse Ox 98.8 F 93 16 146/72 H 91 L 01/09/17 13:47 01/09/17 13:47 01/09/17 11:15 01/09/17 13:47 01/09/17 13:47 - Laboratory Result Diagrams: 01/09/17 11:59 01/09/17 11:59 Laboratory results interpreted by me: 01/09/17 01/09/17 01/09/17 11:59 11:59 11:59 WBC 11.4 H Hgb 11.1 L Hct 34.5 L Sodium 136.6 L Potassium 5.2 H Chloride 90 L BUN 34 H Creatinine 7.73 H Est GFR ( Amer) 7 L Est GFR (Non-Af Amer) 5 L Glucose 367 H Hemoglobin A1c % 11.5 H Direct Bilirubin 0.7 H Alkaline Phosphatase 194 H Discharge - Discharge Clinical Impression: Nausea vomiting and diarrhea, End stage renal disease on dialysis Hemorrhoid Qualifiers: Hemorrhoid type: unspecified Qualified Code(s): K64.9 - Unspecified hemorrhoids Condition: Good Disposition: HOME, SELF-CARE Instructions: Gastroenteritis (adult) ([facility]), HC Hemorrhoid Cream ([facility]), Hemorrhoids ([facility]) Additional Instructions: Examination today is consistent with the GI virus that is going to the community right now. Continue to take her Zofran at home he may also try Reglan provided. Your examination does reveal a hemorrhoid. At this time we will treat this with enalapril and rectal care. The radicular should help with pain relief. Return to ER symptoms worsen. Prescriptions: Hydrocortisone/Pramoxine [Analpram Hc 2.5% Cream] 30 gm RC QID #1 bottle Lidocaine [Recticare] 30 gm TP QID #1 cream..g. Metoclopramide HCl [Reglan] 5 mg PO Q6 #30 tablet Referrals: ROBERTO SALDANA MD [Primary Care Provider] - Follow up in 3-5 days
[2017-01-09 13:57] VITALS: BP 146/72
== END 2017-01-09 13:56 | disposition home or self-care (01) ==
LOC: ER 11:02
DX: K64.9 Unspecified hemorrhoids (principal); R11.2 Nausea with vomiting, unspecified; R19.7 Diarrhea, unspecified; E11.22 Type 2 diabetes mellitus with diabetic chronic kidney disease; I13.2 Hypertensive heart and chronic kidney disease with heart failure and with stage 5 chronic kidney disease, or end stage renal disease; N18.6 End stage renal disease; I25.10 Atherosclerotic heart disease of native coronary artery without angina pectoris; E78.00 Pure hypercholesterolemia, unspecified; Z99.2 Dependence on renal dialysis; Z86.73 Personal history of transient ischemic attack (TIA), and cerebral infarction without residual deficits; Z88.0 Allergy status to penicillin; Z90.49 Acquired absence of other specified parts of digestive tract; Z90.710 Acquired absence of both cervix and uterus
CPT/HCPCS: 99283; 96374; 96375; 36415; 82962; 83690; 85025; 80053; 83036; A9270; J1885; J2765; J7050; S0119

== ENCOUNTER 2017-02-24 00:44 | Emergency (ER) | payer MEDICARE, MEDICAID ==
[2017-02-24] MEDS ORDERED: ASPIRIN 81 MG TABLET, CHEWABLE PO ONE (03:07)
[2017-02-24 03:21] LABS: ABSOLUTE BASOPHILS # (AUTO) 0.1 10^3/uL (0.0-0.2); ABSOLUTE EOSINOPHILS # (AUTO) 0.8 10^3/uL (0.0-0.6); ABSOLUTE LYMPHOCYTES (AUTO) 3.6 10^3/uL (0.5-4.7); ABSOLUTE NEUT (AUTO) 7.4 10^3/uL (1.7-8.2); BASOPHILS % (AUTO) 1.1 % (0-2); EOSINOPHILS % (AUTO) 5.8 % (0-6); HEMATOCRIT 34.2 % (36.0-47.0); HEMOGLOBIN 11.1 g/dL (12.0-15.5); LYMPHOCYTES % (AUTO) 27.5 % (13-45); MEAN CORPUSCULAR HGB CONC 32.5 g/dL (32.0-36.0); MEAN CORPUSCULAR VOLUME 83 fl (80-97); PLATELET COUNT 275 10^3/uL (150-450); RED BLOOD COUNT 4.13 10^6/uL (3.72-5.28); RED CELL DISTRIBUTION WIDTH 14.2 % (11.5-14.0); SEGMENTED NEUTROPHILS % (AUTO) 57.6 % (42-78); TOTAL CELLS COUNTED % (AUTO) 100 %; WHITE BLOOD COUNT 12.9 10^3/uL (4.0-10.5)
[2017-02-24 03:38] LABS: ALANINE AMINOTRANSFERASE 19 U/L (9-52); ALKALINE PHOSPHATASE 193 U/L (38-126); ANION GAP 15 (5-19); ASPARTATE AMINO TRANSFERASE 34 U/L (14-36); BILIRUBIN,DIRECT 0.5 mg/dL (0.0-0.4); BILIRUBIN,TOTAL 0.5 mg/dL (0.2-1.3); BLOOD UREA NITROGEN 46 mg/dL (7-20); CALCIUM 10.1 mg/dL (8.4-10.2); CARBON DIOXIDE 29 mmol/L (22-30); CHLORIDE 100 mmol/L (98-107); CREATINE KINASE 59 U/L (30-135); GLUCOSE 232 mg/dL (75-110); POTASSIUM 3.8 mmol/L (3.6-5.0); SODIUM 143.9 mmol/L (137-145); TOTAL PROTEIN 7.6 g/dL (6.3-8.2)
[2017-02-24 03:49] LABS: CREATINE KINASE MB 0.72 ng/mL (<4.55)
[2017-02-24 03:56] LABS: TROPONIN I 0.077 ng/mL
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
--- NOTE | 2017-02-24 04:35 | RADIOLOGY REPORT (SQ) ---
EXAM DESCRIPTION: CHEST SINGLE VIEW CLINICAL HISTORY: chest pain COMPARISON: 05/12/2016 FINDINGS: Single frontal view of the chest. Cardiomegaly. Atherosclerotic calcification aortic arch. Leads overlie the chest. No consolidation, pneumothorax, or pleural effusion. No displaced rib fractures identified. Upper abdominal soft tissues are unremarkable. Vascular stent in the left axillary region. IMPRESSION: 1. No acute pulmonary process identified. Cardiomegaly.
[2017-02-24 05:46] VITALS: BP 184/90
--- NOTE | 2017-02-24 08:07 | EKG REPORT ---
SEVERITY:- ABNORMAL ECG - SINUS RHYTHM NONSPECIFIC T ABNORMALITIES, LATERAL LEADS BORDERLINE PROLONGED QT INTERVAL : Confirmed by: Ulysses Walden MD 24-Feb-2017 08:06:41
== END 2017-02-24 05:46 | disposition home or self-care (01) ==
LOC: ER 00:44
DX: R07.82 Intercostal pain (principal); E11.22 Type 2 diabetes mellitus with diabetic chronic kidney disease; I13.2 Hypertensive heart and chronic kidney disease with heart failure and with stage 5 chronic kidney disease, or end stage renal disease; I50.9 Heart failure, unspecified; N18.6 End stage renal disease; M79.89 Other specified soft tissue disorders; I25.10 Atherosclerotic heart disease of native coronary artery without angina pectoris; E78.00 Pure hypercholesterolemia, unspecified; Z99.2 Dependence on renal dialysis; Z88.0 Allergy status to penicillin; I25.2 Old myocardial infarction; Z86.73 Personal history of transient ischemic attack (TIA), and cerebral infarction without residual deficits; Z90.49 Acquired absence of other specified parts of digestive tract; Z90.710 Acquired absence of both cervix and uterus
CPT/HCPCS: 93005; 99285; 36415; 82553; 82550; 85025; 80053; 84484; 83880; 71045; 93010; A9270

== ENCOUNTER 2017-03-04 12:57 | Emergency (ER) | payer MEDICARE, MEDICAID ==
[2017-03-04] MEDS ORDERED: NORMAL SALINE 500 ML IV ONE (13:23)
[2017-03-04] MEDS ORDERED: INSULIN REG, HUMAN 100 UNIT/ML 3 ML VIAL (PYX) IV ONE ×2 (13:23→13:54)
--- NOTE | 2017-03-04 13:23 | ER Document Report ---
ED Medical Screen (RME) - General Chief Complaint: High Blood Sugar Stated Complaint: BLOOD SUGAR PROBLEM Time Seen by Provider: 03/04/17 13:17 Mode of Arrival: Wheelchair Information source: Patient, Relative Notes: 57-year-old female history of diabetes dialysis patient presents with concerns of high blood sugar over the past week since being switched to Humalog. Patient 's blood sugar has been in the 300s and recently the 500s+. I have greeted and performed a rapid initial assessment of this patient. A comprehensive ED assessment and evaluation of the patient, analysis of test results and completion of the medical decision making process will be conducted by additional ED providers. PHYSICAL EXAMINATION: GENERAL: Obese female HEAD: Atraumatic, normocephalic. EYES: Pupils equal round extraocular movements intact, conjunctiva are normal. ENT: Nares patent NECK: Normal range of motion LUNGS: No respiratory distress Musculoskeletal: Normal range of motion NEUROLOGICAL: Normal speech, normal gait. Patient does not appear to be tracking well PSYCH: Normal mood, normal affect. SKIN: Dialysis access left upper extremity warm, Dry, normal turgor, no rashes or lesions noted. TRAVEL OUTSIDE OF THE [place] IN LAST 30 DAYS: No - Related Data Allergies/Adverse Reactions: labetalol [Labetalol] Allergy (Severe, Verified 03/04/17 13:19) swelling, sob Penicillins Allergy (Severe, Verified 03/04/17 13:19) itching Liraglutide [From Victoza] Adverse Reaction (Verified 03/04/17 13:19) nausea/vomitting Past Medical History - Social History Chew tobacco use (# tins/day): No Frequency of alcohol use: None Drug Abuse: None - Past Medical History Cardiac Medical History: Reports: Hx Congestive Heart Failure, Hx Coronary Artery Disease, Hx Heart Attack - 2007, Hx Hypercholesterolemia, Hx Hypertension Pulmonary Medical History: Reports: Hx Sleep Apnea - On CPap Denies: Hx Asthma, Hx Bronchitis, Hx COPD, Hx Pneumonia Neurological Medical History: Reports: Hx Cerebrovascular Accident. Denies: Hx Seizures Endocrine Medical History: Reports: Hx Diabetes Mellitus Type 1, Hx Diabetes Mellitus Type 2, Hx Hypothyroidism Renal/ Medical History: Reports: Hx End Stage Renal Disease. 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, Other - parathyroidectomy, 3-1/2 glands removed on 01/13/2016; right adrenalectomy - Immunizations Hx Diphtheria, Pertussis, Tetanus Vaccination: Yes Physical Exam - Vital signs Vitals: Temp Pulse Resp BP Pulse Ox 98.1 F 103 H 16 166/76 H 96 03/04/17 13:05 03/04/17 13:05 03/04/17 13:05 03/04/17 13:05 03/04/17 13:05 Course - Vital Signs Vital signs: Temp Pulse Resp BP Pulse Ox 98.1 F 103 H 16 166/76 H 96 03/04/17 13:05 03/04/17 13:05 03/04/17 13:05 03/04/17 13:05 03/04/17 13:05
--- NOTE | 2017-03-04 14:19 | ER Document Report ---
ED General - General Chief Complaint: High Blood Sugar Stated Complaint: BLOOD SUGAR PROBLEM Time Seen by Provider: 03/04/17 13:17 Mode of Arrival: Wheelchair Notes: Patient with diabetes, dialysis patient. Has not felt well for the last week. Blood sugar was over 500 today. Had recent change in her medications. States that 3 of her medications which she does not know what they are were stopped last week. States that she was started on amitriptyline to help her sleep last week and she has had increased sleepiness throughout the day. Denies any pain other than some chronic pain. No Fever, chills, sweats TRAVEL OUTSIDE OF THE [place] IN LAST 30 DAYS: No - HPI Onset: Yesterday Onset/Duration: Gradual, Worse Severity: Moderate - Related Data Allergies/Adverse Reactions: labetalol [Labetalol] Allergy (Severe, Verified 03/04/17 13:19) swelling, sob Penicillins Allergy (Severe, Verified 03/04/17 13:19) itching Liraglutide [From Victoza] Adverse Reaction (Verified 03/04/17 13:19) nausea/vomitting Past Medical History - General Information source: Patient, Relative - Social History Smoking Status: Never Smoker Chew tobacco use (# tins/day): No Frequency of alcohol use: None Drug Abuse: None Lives with: Family Family History: Reviewed & Not Pertinent Patient has suicidal ideation: No Patient has homicidal ideation: No - Past Medical History Cardiac Medical History: Reports: Hx Congestive Heart Failure, Hx Coronary Artery Disease, Hx Heart Attack - 2007, Hx Hypercholesterolemia, Hx Hypertension Pulmonary Medical History: Reports: Hx Sleep Apnea - On CPap Denies: Hx Asthma, Hx Bronchitis, Hx COPD, Hx Pneumonia Neurological Medical History: Reports: Hx Cerebrovascular Accident. Denies: Hx Seizures Endocrine Medical History: Reports: Hx Diabetes Mellitus Type 1, Hx Diabetes Mellitus Type 2, Hx Hypothyroidism Renal/ Medical History: Reports: Hx End Stage Renal Disease. 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, Other - parathyroidectomy, 3-1/2 glands removed on 01/13/2016; right adrenalectomy - Immunizations Hx Diphtheria, Pertussis, Tetanus Vaccination: Yes Hx Pneumococcal Vaccination: 02/18/15 Review of Systems - Review of Systems Constitutional: Malaise, Weakness. denies: Chills, Diaphoresis, Fever, Recent illness EENT: denies: Blurred vision, Double vision Cardiovascular: denies: Chest pain, Palpitations, Heart racing, Dyspnea, Syncope Respiratory: denies: Cough, Hurts to breathe, Short of breath, Sputum Gastrointestinal: denies: Abdomen distended, Abdominal pain, Diarrhea, Nausea, Vomiting Genitourinary: denies: Burning, Dysuria, Discharge, Pain Female Genitourinary: No symptoms reported Skin: No symptoms reported Hematologic/Lymphatic: denies: Anemia, Blood clots, Easy bleeding, Easy bruising Neurological/Psychological: Weakness. denies: Confusion, Dementia, Depression, Anxiety Physical Exam - Vital signs Vitals: Temp Pulse Resp BP Pulse Ox 98.1 F 103 H 16 166/76 H 96 03/04/17 13:05 03/04/17 13:05 03/04/17 13:05 03/04/17 13:05 03/04/17 13:05 Interpretation: Tachycardic - General General appearance: Appears well In distress: None Notes: Sleepy - HEENT Head: Normocephalic, Atraumatic Eyes: Normal Pupils: PERRL - Respiratory Respiratory status: No respiratory distress Chest status: Nontender Breath sounds: Normal Chest palpation: Normal - Cardiovascular Rhythm: Regular Heart sounds: Normal auscultation Murmur: No - Abdominal Inspection: Normal Distension: No distension Bowel sounds: Normal Tenderness: Nontender Organomegaly: No organomegaly - Back Back: Normal, Nontender - Extremities General upper extremity: Normal inspection, Nontender, Normal color, Normal ROM , Normal temperature, Other - AV fistula site noted left upper extremity General lower extremity: Normal inspection, Nontender, Normal color, Normal ROM , Normal temperature, Normal weight bearing. No: Onur's sign - Neurological Neuro grossly intact: Yes Cognition: Normal Orientation: AAOx4 Carolyn Coma Scale Eye Opening: Spontaneous Carolyn Coma Scale Verbal: Oriented Carolyn Coma Scale Motor: Obeys Commands Carolyn Coma Scale Total: 15 Speech: Normal Motor strength normal: LUE, RUE, LLE, RLE Sensory: Normal - Psychological Associated symptoms: Normal affect, Normal mood - Skin Skin Temperature: Warm Skin Moisture: Dry Skin Color: Normal Course - Re-evaluation Re-evalutation: 03/04/17 16:08 She with reported glucose over 500. Will get Accu-Chek here, basic labs, hydration, insulin if needed and reassess. 03/04/17 17:19 She with sinus tachycardia but otherwise every thing else looks okay. EKG was sinus tachycardia. No signs of acute infarct or ischemia. Labs are fairly baseline for the patient. BNP is actually much improved than prior. Troponin is at baseline for the patient. Potassium levels within normal limits. Blood sugars actually come down without anything other than IV fluids. At this time find nothing further wrong with patient. Advised her to talk with her doctor regarding the continued use of the amitriptyline as this may be causing some issues. Patient verbalized understanding these instructions and patient will be discharged at this time in stable condition. 03/04/17 17:20 Laboratory 03/04/17 03/04/17 03/04/17 15:48 16:03 16:03 WBC 11.7 H RBC 4.17 Hgb 11.3 L Hct 35.2 L MCV 84 MCH 27.1 MCHC 32.2 RDW 14.3 H Plt Count 307 Seg Neutrophils % 58.7 Lymphocytes % 25.5 Monocytes % 8.1 Eosinophils % 7.0 H Basophils % 0.7 Absolute Neutrophils 6.9 Absolute Lymphocytes 3.0 Absolute Monocytes 1.0 Absolute Eosinophils 0.8 H Absolute Basophils 0.1 VBG pH VBG pCO2 VBG HCO3 VBG Base Excess Sodium 136.3 L Potassium 4.7 Chloride 93 L Carbon Dioxide 31 H Anion Gap 12 BUN 34 H Creatinine 7.95 H Est GFR ( Amer) 6 L Est GFR (Non-Af Amer) 5 L Glucose 290 H POC Glucose 260 H Calcium 10.9 H Total Bilirubin 0.5 Direct Bilirubin 0.4 Neonat Total Bilirubin Not Reportable Neonat Direct Bilirubin Not Reportable Neonat Indirect Bili Not Reportable AST 27 ALT 30 Alkaline Phosphatase 201 H Troponin I NT-Pro-B Natriuret Pep Total Protein 8.2 Albumin 4.3 Influenza A (Rapid) Influenza B (Rapid) 03/04/17 03/04/17 03/04/17 16:03 16:03 16:33 WBC RBC Hgb Hct MCV MCH MCHC RDW Plt Count Seg Neutrophils % Lymphocytes % Monocytes % Eosinophils % Basophils % Absolute Neutrophils Absolute Lymphocytes Absolute Monocytes Absolute Eosinophils Absolute Basophils VBG pH 7.33 VBG pCO2 63.4 H VBG HCO3 32.6 H VBG Base Excess 5.0 Sodium Potassium Chloride Carbon Dioxide Anion Gap BUN Creatinine Est GFR ( Amer) Est GFR (Non-Af Amer) Glucose POC Glucose Calcium Total Bilirubin Direct Bilirubin Neonat Total Bilirubin Neonat Direct Bilirubin Neonat Indirect Bili AST ALT Alkaline Phosphatase Troponin I 0.048 NT-Pro-B Natriuret Pep 662 Total Protein Albumin Influenza A (Rapid) NEGATIVE Influenza B (Rapid) NEGATIVE Chest X-Ray 03/04/17 13:17 IMPRESSION: No significant interval change. Cardiomegaly. No acute changes. Other findings as noted above - Vital Signs Vital signs: Temp Pulse Resp BP Pulse Ox 98.1 F 103 H 16 166/76 H 96 03/04/17 13:05 03/04/17 13:05 03/04/17 13:05 03/04/17 13:05 03/04/17 13:05 - Laboratory Result Diagrams: 03/04/17 16:03 03/04/17 16:03 Laboratory results interpreted by me: 03/04/17 03/04/17 03/04/17 15:48 16:03 16:03 WBC 11.7 H Hgb 11.3 L Hct 35.2 L RDW 14.3 H Eosinophils % 7.0 H Absolute Eosinophils 0.8 H VBG pCO2 VBG HCO3 Sodium 136.3 L Chloride 93 L Carbon Dioxide 31 H BUN 34 H Creatinine 7.95 H Est GFR ( Amer) 6 L Est GFR (Non-Af Amer) 5 L Glucose 290 H POC Glucose 260 H Calcium 10.9 H Alkaline Phosphatase 201 H 03/04/17 16:03 WBC Hgb Hct RDW Eosinophils % Absolute Eosinophils VBG pCO2 63.4 H VBG HCO3 32.6 H Sodium Chloride Carbon Dioxide BUN Creatinine Est GFR ( Amer) Est GFR (Non-Af Amer) Glucose POC Glucose Calcium Alkaline Phosphatase - EKG Interpretation by Ri EKG shows normal: [place], Intervals, QRS Complexes, ST-T Waves Rate: Tachycardia Discharge - Discharge Clinical Impression: Hyperglycemia due to type 2 diabetes mellitus Qualifiers: 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 It may be causing you to have increased somnolence. Decrease her carbohydrate intake. Continue with your regular insulin medications as instructed. Please call your regular doctor as well as your specialist to coordinate further evaluation. If your blood sugars continue to elevate and you are unable to get them down please return to the emergency department. Referrals: ROBERTO SALDANA MD [Primary Care Provider] - Follow up in 3-5 days
--- NOTE | 2017-03-04 14:58 | RADIOLOGY REPORT (SQ) ---
EXAM DESCRIPTION: CHEST PA/LAT COMPLETED DATE/TIME: 03/04/2017 2:46 pm REASON FOR STUDY: dialysis patient COMPARISON: 02/24/2017 EXAM PARAMETERS: NUMBER OF VIEWS: two views TECHNIQUE: Digital Frontal and Lateral radiographic views of the chest acquired. RADIATION DOSE: NA LIMITATIONS: none FINDINGS: LUNGS AND PLEURA: No opacities, masses or pneumothorax. No pleural effusion. MEDIASTINUM AND HILAR STRUCTURES: No masses or contour abnormalities. HEART AND VASCULAR STRUCTURES: Cardiac silhouette remains enlarged and is unchanged in configuration. BONES: No acute findings. HARDWARE: Vascular stent is identified in the left axillary region. OTHER: No other significant finding. IMPRESSION: No significant interval change. Cardiomegaly. No acute changes. Other findings as not ed above TECHNICAL DOCUMENTATION: JOB ID: [id number] [employer]- All Rights Reserved
[2017-03-04 16:19] LABS: VENOUS BLOOD HCO3 32.6 mmol/L (20-32); VENOUS BLOOD PCO2 63.4 mmHg (35-63); VENOUS BLOOD PH 7.33 (7.30-7.42)
[2017-03-04 16:21] LABS: ABSOLUTE BASOPHILS # (AUTO) 0.1 10^3/uL (0.0-0.2); ABSOLUTE EOSINOPHILS # (AUTO) 0.8 10^3/uL (0.0-0.6); ABSOLUTE NEUT (AUTO) 6.9 10^3/uL (1.7-8.2); BASOPHILS % (AUTO) 0.7 % (0-2); HEMATOCRIT 35.2 % (36.0-47.0); HEMOGLOBIN 11.3 g/dL (12.0-15.5); LYMPHOCYTES % (AUTO) 25.5 % (13-45); MEAN CORPUSCULAR HEMOGLOBIN 27.1 pg (27.0-33.4); MEAN CORPUSCULAR HGB CONC 32.2 g/dL (32.0-36.0); MEAN CORPUSCULAR VOLUME 84 fl (80-97); MONOCYTES % (AUTO) 8.1 % (3-13); PLATELET COUNT 307 10^3/uL (150-450); RED BLOOD COUNT 4.17 10^6/uL (3.72-5.28); RED CELL DISTRIBUTION WIDTH 14.3 % (11.5-14.0); SEGMENTED NEUTROPHILS % (AUTO) 58.7 % (42-78); TOTAL CELLS COUNTED % (AUTO) 100 %; WHITE BLOOD COUNT 11.7 10^3/uL (4.0-10.5)
[2017-03-04 16:37] LABS: ALANINE AMINOTRANSFERASE 30 U/L (9-52); ALBUMIN 4.3 g/dL (3.5-5.0); ALKALINE PHOSPHATASE 201 U/L (38-126); ANION GAP 12 (5-19); ASPARTATE AMINO TRANSFERASE 27 U/L (14-36); BILIRUBIN,DIRECT 0.4 mg/dL (0.0-0.4); BILIRUBIN,TOTAL 0.5 mg/dL (0.2-1.3); BLOOD UREA NITROGEN 34 mg/dL (7-20); CALCIUM 10.9 mg/dL (8.4-10.2); CARBON DIOXIDE 31 mmol/L (22-30); CHLORIDE 93 mmol/L (98-107); GLUCOSE 290 mg/dL (75-110); POTASSIUM 4.7 mmol/L (3.6-5.0); SODIUM 136.3 mmol/L (137-145); TOTAL PROTEIN 8.2 g/dL (6.3-8.2)
[2017-03-04 16:53] LABS: TROPONIN I 0.048 ng/mL
[2017-03-04 17:10] LABS: A TYPE INFLUENZA AG NEGATIVE (NEGATIVE); B INFLUENZA AG NEGATIVE (NEGATIVE)
[2017-03-04 17:42] VITALS: BP 154/75
--- NOTE | 2017-03-05 10:26 | EKG REPORT ---
SEVERITY:- ABNORMAL ECG - SINUS TACHYCARDIA NONSPECIFIC T ABNORMALITIES, LATERAL LEADS : Confirmed by: Lexii Thorne 05-Mar-2017 10:25:11
== END 2017-03-04 17:47 | disposition home or self-care (01) ==
LOC: ER 12:57
DX: E11.65 Type 2 diabetes mellitus with hyperglycemia (principal); Z79.4 Long term (current) use of insulin; T88.7XXA Unspecified adverse effect of drug or medicament, initial encounter; R53.1 Weakness; I12.0 Hypertensive chronic kidney disease with stage 5 chronic kidney disease or end stage renal disease; E11.22 Type 2 diabetes mellitus with diabetic chronic kidney disease; N18.6 End stage renal disease; Z99.2 Dependence on renal dialysis; Z88.0 Allergy status to penicillin; I25.2 Old myocardial infarction; Z90.49 Acquired absence of other specified parts of digestive tract; Z90.710 Acquired absence of both cervix and uterus
CPT/HCPCS: 93005; 99285; 36415; 82962; 85025; 80053; 84484; 82803; 87804; 83880; 71046; 93010; A9270; J7040; J1815

== ENCOUNTER 2017-03-05 12:03 | Emergency (ER) | payer MEDICARE, MEDICAID ==
--- NOTE | 2017-03-05 12:23 | ER Document Report ---
ED Medical Screen (RME) - General Chief Complaint: Allergic Reaction Stated Complaint: ALLERGIC REACTION Time Seen by Provider: 03/05/17 12:19 Mode of Arrival: Ambulatory Information source: Patient Notes: 57-year-old female presents to the emergency department today with complaints of a possible allergic reaction to amitriptyline. Patient has been seen here twice in the last few days for complaints related to this amitriptyline allergy. Patient was started on this medication 4 days ago. Patient describes an itchy and burning sensation in her hands, legs, and back. Patient denies any throat swelling. Patient states she took Benadryl this morning at dialysis which minimally relieved her symptoms. TRAVEL OUTSIDE OF THE [place] IN LAST 30 DAYS: No - Related Data Allergies/Adverse Reactions: labetalol [Labetalol] Allergy (Severe, Verified 03/04/17 13:19) swelling, sob Penicillins Allergy (Severe, Verified 03/04/17 13:19) itching Liraglutide [From Victoza] Adverse Reaction (Verified 03/04/17 13:19) nausea/vomitting Past Medical History - General Information source: Patient - Past Medical History Cardiac Medical History: Reports: Hx Congestive Heart Failure, Hx Coronary Artery Disease, Hx Heart Attack - 2007, Hx Hypercholesterolemia, Hx Hypertension Pulmonary Medical History: Reports: Hx Sleep Apnea - On CPap Neurological Medical History: Reports: Hx Cerebrovascular Accident Endocrine Medical History: Reports: Hx Diabetes Mellitus Type 1, Hx Diabetes Mellitus Type 2, Hx Hypothyroidism Renal/ Medical History: Reports: Hx End Stage Renal Disease Musculoskeltal Medical History: Reports Hx Arthritis, Reports Hx Gout Psychiatric Medical History: Reports: Hx Depression Past Surgical History: Reports: Hx Appendectomy, Hx Section, Hx Cholecystectomy, Hx Hysterectomy, Hx Orthopedic Surgery - cancer removed from back, Other - parathyroidectomy, 3-1/2 glands removed on 01/13/2016; right adrenalectomy - Immunizations Hx Diphtheria, Pertussis, Tetanus Vaccination: Yes Review of Systems - Review of Systems Skin: See HPI, Other - allergic reaction, skin itching Physical Exam - Vital signs Vitals: Temp Pulse Resp BP Pulse Ox 98.4 F 102 H 14 112/90 H 97 03/05/17 12:13 03/05/17 12:13 03/05/17 12:13 03/05/17 12:13 03/05/17 12:13 - General General appearance: Appears well In distress: None - HEENT Head: Normocephalic Eyes: Normal Conjunctiva: Normal - Respiratory Respiratory status: No respiratory distress Chest status: Nontender - Cardiovascular Rhythm: Regular Heart sounds: Normal auscultation Murmur: No - Skin Notes: itchy, feels like skin is "on fire" Course - Vital Signs Vital signs: Temp Pulse Resp BP Pulse Ox 98.4 F 102 H 14 112/90 H 97 03/05/17 12:13 03/05/17 12:13 03/05/17 12:13 03/05/17 12:13 03/05/17 12:13 Scribe Documentation - Scribe Written by Christian:: Christian Edmondson, 03/05/2017 1325 acting as scribe for :: Nadeen
[2017-03-05 13:31] LABS: ABSOLUTE BASOPHILS # (AUTO) 0.1 10^3/uL (0.0-0.2); ABSOLUTE EOSINOPHILS # (AUTO) 0.6 10^3/uL (0.0-0.6); ABSOLUTE LYMPHOCYTES (AUTO) 1.8 10^3/uL (0.5-4.7); ABSOLUTE MONOCYTES (AUTO) 0.8 10^3/uL (0.1-1.4); EOSINOPHILS % (AUTO) 5.9 % (0-6); HEMATOCRIT 34.7 % (36.0-47.0); HEMOGLOBIN 11.4 g/dL (12.0-15.5); LYMPHOCYTES % (AUTO) 17.6 % (13-45); MEAN CORPUSCULAR HEMOGLOBIN 27.6 pg (27.0-33.4); MEAN CORPUSCULAR HGB CONC 32.9 g/dL (32.0-36.0); MEAN CORPUSCULAR VOLUME 84 fl (80-97); MONOCYTES % (AUTO) 7.4 % (3-13); PLATELET COUNT 289 10^3/uL (150-450); RED BLOOD COUNT 4.13 10^6/uL (3.72-5.28); RED CELL DISTRIBUTION WIDTH 14.8 % (11.5-14.0); SEGMENTED NEUTROPHILS % (AUTO) 68.1 % (42-78); TOTAL CELLS COUNTED % (AUTO) 100 %; WHITE BLOOD COUNT 10.3 10^3/uL (4.0-10.5)
[2017-03-05 13:47] LABS: ALANINE AMINOTRANSFERASE 36 U/L (9-52); ALBUMIN 4.2 g/dL (3.5-5.0); ALKALINE PHOSPHATASE 194 U/L (38-126); ANION GAP 13 (5-19); ASPARTATE AMINO TRANSFERASE 25 U/L (14-36); BILIRUBIN,DIRECT 0.4 mg/dL (0.0-0.4); BILIRUBIN,TOTAL 0.5 mg/dL (0.2-1.3); BLOOD UREA NITROGEN 19 mg/dL (7-20); CALCIUM 9.5 mg/dL (8.4-10.2); CARBON DIOXIDE 26 mmol/L (22-30); CHLORIDE 99 mmol/L (98-107); GLUCOSE 132 mg/dL (75-110); POTASSIUM 4.1 mmol/L (3.6-5.0); SODIUM 137.7 mmol/L (137-145); TOTAL PROTEIN 7.8 g/dL (6.3-8.2)
--- NOTE | 2017-03-05 14:00 | RADIOLOGY REPORT (SQ) ---
EXAM DESCRIPTION: CHEST PA/LAT COMPLETED DATE/TIME: 03/05/2017 1:40 pm REASON FOR STUDY: CP COMPARISON: 03/04/2017 EXAM PARAMETERS: NUMBER OF VIEWS: two views TECHNIQUE: Digital Frontal and Lateral radiographic views of the chest acquired. RADIATION DOSE: NA LIMITATIONS: none FINDINGS: LUNGS AND PLEURA: No new opacities, masses or pneumothorax. No pleural effusion. MEDIASTINUM AND HILAR STRUCTURES: No masses or contour abnormalities. HEART AND VASCULAR STRUCTURES: Heart stable size. No evidence for failure. BONES: No acute findings. HARDWARE: Stable. OTHER: No other significant finding. IMPRESSION: NO ACUTE CARDIOPULMONARY PROCESS. NO SIGNIFICANT CHANGE FROM PRIOR STUDY. TECHNICAL DOCUMENTATION: JOB ID: [id number] [employer]- All Rights Reserved
--- NOTE | 2017-03-05 16:09 | ER Document Report ---
ED Allergic Reaction - General Chief Complaint: Allergic Reaction Stated Complaint: ALLERGIC REACTION Time Seen by Provider: 03/05/17 12:19 Mode of Arrival: Ambulatory Notes: Patient was seen here yesterday and returns today with a complaint of persistent itching on her hands and feet. Patient is a renal failure patient on dialysis. Was seen here yesterday because she had elevated glucose and hypersomnolence. It was noted that patient was recently started on amitriptyline to help with the itching. Since that time she has been excessively sleepy and not moving very much. Her blood sugar was subsequently corrected and she was discharged with some topical Benadryl cream. States that she tried it once and is not working so came back. To dialysis today but it did not help. TRAVEL OUTSIDE OF THE [place] IN LAST 30 DAYS: No - HPI Onset/Duration: Gradual, Worse Severity: Moderate - Related Data Allergies/Adverse Reactions: labetalol [Labetalol] Allergy (Severe, Verified 03/04/17 13:19) swelling, sob Penicillins Allergy (Severe, Verified 03/04/17 13:19) itching Liraglutide [From Victoza] Adverse Reaction (Verified 03/04/17 13:19) nausea/vomitting Past Medical History - General Information source: Patient - Social History Smoking Status: Never Smoker Chew tobacco use (# tins/day): No Frequency of alcohol use: None Drug Abuse: None Lives with: Family Family History: Reviewed & Not Pertinent Patient has suicidal ideation: No Patient has homicidal ideation: No - Past Medical History Cardiac Medical History: Reports: Hx Congestive Heart Failure, Hx Coronary Artery Disease, Hx Heart Attack - 2007, Hx Hypercholesterolemia, Hx Hypertension Pulmonary Medical History: Reports: Hx Sleep Apnea - On CPap Denies: Hx Asthma, Hx Bronchitis, Hx COPD, Hx Pneumonia Neurological Medical History: Reports: Hx Cerebrovascular Accident. Denies: Hx Seizures Endocrine Medical History: Reports: Hx Diabetes Mellitus Type 1, Hx Diabetes Mellitus Type 2, Hx Hypothyroidism Renal/ Medical History: Reports: Hx End Stage Renal Disease. 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, Other - parathyroidectomy, 3-1/2 glands removed on 01/13/2016; right adrenalectomy - Immunizations Hx Diphtheria, Pertussis, Tetanus Vaccination: Yes Hx Pneumococcal Vaccination: 02/18/15 Review of Systems - Review of Systems Constitutional: No symptoms reported EENT: No symptoms reported Cardiovascular: No symptoms reported Respiratory: No symptoms reported Gastrointestinal: No symptoms reported Genitourinary: No symptoms reported Female Genitourinary: No symptoms reported Musculoskeletal: No symptoms reported Skin: No symptoms reported, See HPI Hematologic/Lymphatic: No symptoms reported Neurological/Psychological: No symptoms reported Physical Exam - Vital signs Vitals: Temp Pulse Resp BP Pulse Ox 98.4 F 102 H 14 112/90 H 97 03/05/17 12:13 03/05/17 12:13 03/05/17 12:13 03/05/17 12:13 03/05/17 12:13 Interpretation: Normal - General General appearance: Appears well, Alert - HEENT Head: Normocephalic, Atraumatic Eyes: Normal Pupils: PERRL - Respiratory Respiratory status: No respiratory distress Chest status: Nontender Breath sounds: Normal Chest palpation: Normal - Cardiovascular Rhythm: Regular Heart sounds: Normal auscultation Murmur: No - Abdominal Inspection: Normal Distension: No distension Bowel sounds: Normal Tenderness: Nontender Organomegaly: No organomegaly - Back Back: Normal, Nontender - Extremities General upper extremity: Normal inspection, Nontender, Normal color, Normal ROM , Normal temperature General lower extremity: Normal inspection, Nontender, Normal color, Normal ROM , Normal temperature, Normal weight bearing. No: Onur's sign - Neurological Neuro grossly intact: Yes Cognition: Normal Orientation: AAOx4 Carolyn Coma Scale Eye Opening: Spontaneous [place] Coma Scale Verbal: Oriented [place] Coma Scale Motor: Obeys Commands Huntington Coma Scale Total: 15 Speech: Normal Motor strength normal: LUE, RUE, LLE, RLE Sensory: Normal - Psychological Associated symptoms: Normal affect, Normal mood - Skin Skin Temperature: Warm Skin Moisture: Dry Skin Color: Normal Course - Re-evaluation Re-evalutation: 03/06/17 00:01 Explained to patient that this is a common occurrence with people on dialysis. I do not have anything further to offer her. Consulted with the hospitalist who recommends putting her on nortriptyline instead of amitriptyline. Advised patient to stop taking amitriptyline and start taking the nortriptyline. Follow -up with her regular doctor. If this does not work may need to place her on an antipsychotic medication - Vital Signs Vital signs: Temp Pulse Resp BP Pulse Ox 97.9 F 92 18 148/63 H 98 03/05/17 17:50 03/05/17 17:50 03/05/17 17:50 03/05/17 17:50 03/05/17 17:50 - Laboratory Result Diagrams: 03/05/17 13:16 03/05/17 13:16 Laboratory results interpreted by me: 03/05/17 03/05/17 13:16 13:16 Hgb 11.4 L Hct 34.7 L RDW 14.8 H Creatinine 5.26 H Est GFR ( Amer) 10 L Est GFR (Non-Af Amer) 8 L Glucose 132 H Alkaline Phosphatase 194 H Discharge - Discharge Clinical Impression: Chronic pruritus Disposition: HOME, SELF-CARE Additional Instructions: You have a chronic condition which causes itching. This is related to your renal failure. This can be a very difficult condition to treat. Please discuss options with your emergency room clinician as well as your regular doctor. We are going to start you on some new medication called Pam[place]or. Do not take any other medications in the same class such as amitriptyline. Please follow-up with your regular doctor soon as possible. If symptoms get worse we are always here. Prescriptions: Nortriptyline HCl [Pamelor 10 Mg Capsule] 10 mg PO QHS 20 Days #20 capsule Referrals: ROBERTO SALDANA MD [Primary Care Provider] - Follow up as needed
[2017-03-05 17:51] VITALS: BP 148/63
--- NOTE | 2017-03-05 22:19 | EKG REPORT ---
SEVERITY:- ABNORMAL ECG - SINUS RHYTHM PROLONGED QT INTERVAL : Confirmed by: Lexii Thorne 05-Mar-2017 22:18:56
== END 2017-03-05 17:51 | disposition home or self-care (01) ==
LOC: ER 12:03
DX: L29.9 Pruritus, unspecified (principal); T78.40XA Allergy, unspecified, initial encounter; N19 Unspecified kidney failure; Z99.2 Dependence on renal dialysis
CPT/HCPCS: 36415; 71046; 80053; 84484; 85025; 93005; 93010; 99284

== ENCOUNTER → 2017-05-13 | Outpatient (CLI) | payer MEDICARE, MEDICAID ==
[2017-05-13 08:46] LABS: ABSOLUTE BASOPHILS # (AUTO) 0.2 10^3/uL (0.0-0.2); ABSOLUTE EOSINOPHILS # (AUTO) 0.9 10^3/uL (0.0-0.6); ABSOLUTE LYMPHOCYTES (AUTO) 3.3 10^3/uL (0.5-4.7); ABSOLUTE MONOCYTES (AUTO) 0.9 10^3/uL (0.1-1.4); ABSOLUTE NEUT (AUTO) 6.7 10^3/uL (1.7-8.2); BASOPHILS % (AUTO) 1.8 % (0-2); EOSINOPHILS % (AUTO) 7.3 % (0-6); HEMATOCRIT 37.6 % (36.0-47.0); HEMOGLOBIN 12.1 g/dL (12.0-15.5); LYMPHOCYTES % (AUTO) 27.7 % (13-45); MEAN CORPUSCULAR HEMOGLOBIN 27.3 pg (27.0-33.4); MEAN CORPUSCULAR HGB CONC 32.1 g/dL (32.0-36.0); MEAN CORPUSCULAR VOLUME 85 fl (80-97); MONOCYTES % (AUTO) 7.8 % (3-13); PLATELET COUNT 251 10^3/uL (150-450); RED BLOOD COUNT 4.43 10^6/uL (3.72-5.28); RED CELL DISTRIBUTION WIDTH 14.2 % (11.5-14.0); SEGMENTED NEUTROPHILS % (AUTO) 55.4 % (42-78); TOTAL CELLS COUNTED % (AUTO) 100 %
[2017-05-13 09:26] LABS: ALANINE AMINOTRANSFERASE 36 U/L (9-52); ALBUMIN 4.1 g/dL (3.5-5.0); ALKALINE PHOSPHATASE 181 U/L (38-126); ANION GAP 17 (5-19); ASPARTATE AMINO TRANSFERASE 35 U/L (14-36); BILIRUBIN,DIRECT 0.4 mg/dL (0.0-0.4); BILIRUBIN,TOTAL 0.8 mg/dL (0.2-1.3); BLOOD UREA NITROGEN 34 mg/dL (7-20); CALCIUM 8.1 mg/dL (8.4-10.2); CARBON DIOXIDE 29 mmol/L (22-30); CHLORIDE 94 mmol/L (98-107); GLUCOSE 224 mg/dL (75-110); POTASSIUM 4.5 mmol/L (3.6-5.0); SODIUM 139.6 mmol/L (137-145); TOTAL PROTEIN 7.6 g/dL (6.3-8.2)
--- NOTE | 2017-05-13 09:32 | RADIOLOGY REPORT (SQ) ---
EXAM DESCRIPTION: CHEST PA/LAT COMPLETED DATE/TIME: 05/13/2017 9:05 am REASON FOR STUDY: E66.01, E11.9, I10,Z01.810,Z01.811, HYPERTENSION, COMPARISON: Chest films 03/05/2017, 02/24/2017, 04/13/2016 EXAM PARAMETERS: NUMBER OF VIEWS: two views TECHNIQUE: Digital Frontal and Lateral radiographic views of the chest acquired. RADIATION DOSE: NA LIMITATIONS: none FINDINGS: LUNGS AND PLEURA: No opacities, masses or pneumothorax. No pleural effusion. MEDIASTINUM AND HILAR STRUCTURES: No masses or contour abnormalities. HEART AND VASCULAR STRUCTURES: Stable moderate cardiomegaly BONES: No acute findings. HARDWARE: Left axillary vascular stent. OTHER: No other significant finding. IMPRESSION: Stable moderate cardiomegaly. No acute infiltrates or pleural effusion TECHNICAL DOCUMENTATION: JOB ID: [id number] [employer]- All Rights Reserved Reading location - IP/workstation name: [email or web address]
--- NOTE | 2017-05-13 13:48 | EKG REPORT ---
SEVERITY:- ABNORMAL ECG - SINUS RHYTHM NONSPECIFIC T ABNORMALITIES, LATERAL LEADS PROLONGED QT INTERVAL : Confirmed by: Ulysses Walden MD 13-May-2017 13:48:05
== END ==
LOC: LAB 08:27
PROVIDERS: ATTEND Surgery
DX: Z01.810 Encounter for preprocedural cardiovascular examination (principal); Z01.811 Encounter for preprocedural respiratory examination; Z01.812 Encounter for preprocedural laboratory examination; Z01.818 Encounter for other preprocedural examination; I10 Essential (primary) hypertension; E11.9 Type 2 diabetes mellitus without complications; E66.01 Morbid (severe) obesity due to excess calories
CPT/HCPCS: 36415; 71046; 80053; 84443; 85025; 93005; 93010

== ENCOUNTER → 2017-06-14 | Outpatient (CLI) | payer MEDICARE, MEDICAID ==
--- NOTE | 2017-06-14 15:36 | RADIOLOGY REPORT (SQ) ---
EXAM DESCRIPTION: U/S ABDOMEN LIMITED W/O DOP COMPLETED DATE/TIME: 06/14/2017 11:15 am REASON FOR STUDY: RUQ PAIN (R10.11) R10.11 RIGHT UPPER QUADRANT PAIN COMPARISON: None. TECHNIQUE: Dynamic and static grayscale images acquired of the abdomen and recorded on PACS. Additio nal selected color Doppler and spectral images recorded. LIMITATIONS: None. FINDINGS: PANCREAS: No obvious masses. Evaluation the pancreas is slightly limited because of body habitus. LIVER: 17.7 cm. There is increased echogenicity. No masses. LIVER VASCULATURE: Normal directional flow of the main portal vein and hepatic veins. GALLBLADDER: No stones. Normal wall thickness. No pericholecystic fluid. ULTRASOUND-DETECTED CANTRELL'S SIGN: Negative. INTRAHEPATIC DUCTS AND COMMON DUCT: CBD and intrahepatic ducts normal caliber. No filling defects. INFERIOR VENA CAVA: Not well seen. AORTA: Proximal aorta is normal. Mid and distal aorta were obscured by gas. RIGHT KIDNEY: Normal size, 8.3 cm. Normal echogenicity. No solid or suspicious masses. No hydronephr osis. No calcifications. PERITONEAL AND RIGHT PLEURAL SPACE: No ascites or effusions. OTHER: No other significant findings. IMPRESSION: Fatty infiltration of the liver. TECHNICAL DOCUMENTATION: JOB ID: [id number] [employer]- All Rights Reserved Reading location - IP/workstation name: [email or web address]
== END ==
LOC: RAD 10:08
PROVIDERS: ATTEND Surgery
DX: R10.11 Right upper quadrant pain (principal)
CPT/HCPCS: 76705

== ENCOUNTER 2017-11-25 14:52 | Emergency (ER) | payer MEDICARE, MEDICAID ==
--- NOTE | 2017-11-25 15:38 | ER Document Report ---
ED Medical Screen (RME) - General Chief Complaint: Arm Pain Stated Complaint: LEFT ARM PAIN Time Seen by Provider: 11/25/17 15:36 Mode of Arrival: Wheelchair Information source: Patient, Relative TRAVEL OUTSIDE OF THE [place] IN LAST 30 DAYS: No - HPI Patient complains to provider of: A-V fistula malfunction Onset: This morning - pt is ESRD pt. with regular HD yesterday. Today, she flet severe pain in fistula and spoke to Dr. [place]'nurse and told to come to ED - Related Data Allergies/Adverse Reactions: labetalol [Labetalol] Allergy (Severe, Verified 11/25/17 14:53) swelling, sob Penicillins Allergy (Severe, Verified 11/25/17 14:53) itching Liraglutide [From Victoza] Adverse Reaction (Verified 11/25/17 14:53) nausea/vomitting Past Medical History - Past Medical History Cardiac Medical History: Reports: Hx Congestive Heart Failure, Hx Coronary Artery Disease, Hx Heart Attack - 2007, Hx Hypercholesterolemia, Hx Hypertension Pulmonary Medical History: Reports: Hx Sleep Apnea - On CPap Denies: Hx Asthma, Hx Bronchitis, Hx COPD, Hx Pneumonia Neurological Medical History: Reports: Hx Cerebrovascular Accident. Denies: Hx Seizures Endocrine Medical History: Reports: Hx Diabetes Mellitus Type 1, Hx Diabetes Mellitus Type 2, Hx Hypothyroidism Renal/ Medical History: Reports: Hx End Stage Renal Disease. 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, Other - parathyroidectomy, 3-1/2 glands removed on 01/13/2016; right adrenalectomy - Immunizations Hx Diphtheria, Pertussis, Tetanus Vaccination: Yes History of Influenza Vaccine for 11/2016 - 04/2017 Season: Unknown Physical Exam - Vital signs Vitals: Temp Pulse Resp BP Pulse Ox 98.2 F 95 18 154/88 H 100 11/25/17 15:00 11/25/17 15:00 11/25/17 15:00 11/25/17 15:00 11/25/17 15:00 Course - Vital Signs Vital signs: Temp Pulse Resp BP Pulse Ox 98.2 F 95 18 154/88 H 100 11/25/17 15:00 11/25/17 15:00 11/25/17 15:00 11/25/17 15:00 11/25/17 15:00 Doctor's Discharge - Discharge Referrals: ROBERTO SALDANA MD [Primary Care Provider] - Follow up as needed
--- NOTE | 2017-11-25 18:32 | ER Document Report ---
ED General - General Chief Complaint: Arm Pain Stated Complaint: LEFT ARM PAIN Time Seen by Provider: 11/25/17 15:36 Mode of Arrival: Wheelchair Notes: Patient is a 57-year-old female with a past medical history of end-stage renal disease with dialysis dependence who presents with complaints of pain over her left forearm fistula. Patient states she was applying a toilet when she heard a "pop". States that since that time she has had a dull, throbbing, constant pain over the fistula site worsened by movement of the arm. She denies a history of similar symptoms in the past. She did contact her dialysis center which recommended coming to the emergency room for further evaluation. She has not noted any swelling or deformity to the area. Denies any discoloration or decreased sensation to the hand. No direct trauma to the area. Nothing improves or worsens the pain. TRAVEL OUTSIDE OF THE [place] IN LAST 30 DAYS: No - Related Data Allergies/Adverse Reactions: labetalol [Labetalol] Allergy (Severe, Verified 11/25/17 14:53) swelling, sob Penicillins Allergy (Severe, Verified 11/25/17 14:53) itching latex Allergy (Verified 11/25/17 15:39) Liraglutide [From Victoza] Adverse Reaction (Verified 11/25/17 14:53) nausea/vomitting Past Medical History - General Information source: Patient, Relative - Social History Smoking Status: Never Smoker Frequency of alcohol use: None Drug Abuse: None Lives with: Family Family History: Reviewed & Not Pertinent Patient has suicidal ideation: No Patient has homicidal ideation: No - Past Medical History Cardiac Medical History: Reports: Hx Congestive Heart Failure, Hx Coronary Artery Disease, Hx Heart Attack - 2007, Hx Hypercholesterolemia, Hx Hypertension Pulmonary Medical History: Reports: Hx Sleep Apnea - On CPap Denies: Hx Asthma, Hx Bronchitis, Hx COPD, Hx Pneumonia Neurological Medical History: Reports: Hx Cerebrovascular Accident. Denies: Hx Seizures Endocrine Medical History: Reports: Hx Diabetes Mellitus Type 1, Hx Diabetes Mellitus Type 2, Hx Hypothyroidism Renal/ Medical History: Reports: Hx End Stage Renal Disease. Denies: Hx Peritoneal Dialysis Musculoskeletal Medical History: Reports Hx Arthritis, Reports Hx Gout Psychiatric Medical History: Reports: Hx Depression Past Surgical History: Reports: Hx Appendectomy, Hx Section, Hx Cholecystectomy, Hx Hysterectomy, Hx Orthopedic Surgery - cancer removed from back, Other - parathyroidectomy, 3-1/2 glands removed on 01/13/2016; right adrenalectomy - Immunizations Hx Diphtheria, Pertussis, Tetanus Vaccination: Yes Hx Pneumococcal Vaccination: 02/18/15 Review of Systems - Review of Systems Notes: Constitutional: Negative for fever. HENT: Negative for sore throat. Eyes: Negative for visual changes. Cardiovascular: Negative for chest pain. Respiratory: Negative for shortness of breath. Gastrointestinal: Negative for abdominal pain, vomiting or diarrhea. Genitourinary: Negative for dysuria. Musculoskeletal: Positive for fistula pain over the left forearm Skin: Negative for rash. Neurological: Negative for headaches, weakness or numbness. 10 point ROS negative except as marked above and in HPI. Physical Exam - Vital signs Vitals: Temp Pulse Resp BP Pulse Ox 98.2 F 95 18 154/88 H 100 11/25/17 15:00 11/25/17 15:00 11/25/17 15:00 11/25/17 15:00 11/25/17 15:00 Notes: PHYSICAL EXAMINATION: GENERAL: Well-appearing, well-nourished and in no acute distress. HEAD: Atraumatic, normocephalic. EYES: Pupils equal round and reactive to light, extraocular movements intact, sclera anicteric, conjunctiva are normal. ENT: nares patent, oropharynx clear without exudates. Moist mucous membranes. NECK: Normal range of motion, supple without lymphadenopathy LUNGS: Breath sounds clear to auscultation bilaterally and equal. No wheezes rales or rhonchi. HEART: Regular rate and rhythm without murmurs, 2+ radial pulses bilaterally. Capillary refill less than 1 second in all digits of the left hand ABDOMEN: Soft, nontender, normoactive bowel sounds. No guarding, no rebound. No masses appreciated. EXTREMITIES: Normal range of motion, no pitting or edema. No cyanosis. Palpable thrill of the fistula in the left forearm. Bruit heard on auscultation. No swelling or deformity to the area. NEUROLOGICAL: No focal neurological deficits. Moves all extremities spontaneously and on command. PSYCH: Normal mood, normal affect. SKIN: Warm, Dry, normal turgor, no rashes or lesions noted. Course - Re-evaluation Re-evalutation: 11/25/17 18:31 Patient presents with concerns that her fistula is "busted". States that he was plunging a toilet today, felt a snap around the area of her fistula and has had some mild pain since that time. There is no notable swelling to the fistula. Palpable thrill and bruit heard on exam. There is no diminished pulses. I do not suspect a rupture of the fistula or failure of the graft. No obvious cause of the patient's complaint at this point but it does not appear to be from acute fistulous failure. No indication for labs or imaging. She has full range of motion of the elbow. I have encouraged to follow-up with her dialysis center in the morning. At this time will discharge with return precautions and follow-up recommendations. Verbal discharge instructions given a the bedside and opportunity for questions given. Medication warnings reviewed. Patient is in agreement with this plan and has verbalized understanding of return precautions and the need for primary care follow-up in the next 24-72 hours. - Vital Signs Vital signs: Temp Pulse Resp BP Pulse Ox 98.2 F 87 19 156/74 H 99 11/25/17 15:00 11/25/17 18:42 11/25/17 18:42 11/25/17 18:42 11/25/17 18:42 Discharge - Discharge Clinical Impression: Pain from A/V fistula Condition: Good Disposition: HOME, SELF-CARE Additional Instructions: Your fistula appears to be functioning properly, no obvious swelling or lack of flow is noted on exam. Please follow-up with your dialysis center in the morning. Return if you develop swelling to the area, worsening pain, discoloration of your hands, becomes unable to move the arm, or have any other symptoms that are worrisome to you. Referrals: ROBERTO SALDANA MD [Primary Care Provider] - Follow up as needed
[2017-11-25 18:43] VITALS: BP 156/74
== END 2017-11-25 18:44 | disposition home or self-care (01) ==
LOC: ER 14:52
DX: T82.848A Pain due to vascular prosthetic devices, implants and grafts, initial encounter (principal); Y84.1 Kidney dialysis as the cause of abnormal reaction of the patient, or of later complication, without mention of misadventure at the time of the procedure; I12.0 Hypertensive chronic kidney disease with stage 5 chronic kidney disease or end stage renal disease; E11.22 Type 2 diabetes mellitus with diabetic chronic kidney disease; N18.6 End stage renal disease; Z99.2 Dependence on renal dialysis; I25.10 Atherosclerotic heart disease of native coronary artery without angina pectoris; Z88.8 Allergy status to other drugs, medicaments and biological substances; Z88.0 Allergy status to penicillin; Z91.040 Latex allergy status
CPT/HCPCS: 99283

== ENCOUNTER 2017-12-12 21:52 | Observation (INO) | payer MEDICARE, MEDICAID ==
--- NOTE | 2017-12-12 23:33 | ER Document Report ---
ED Medical Screen (RME) - General Chief Complaint: Fall Stated Complaint: FELL Time Seen by Provider: 12/12/17 23:29 Notes: Female chief complaint of fall, states she was here earlier today and when she got home she fell forward. Cousin is here and states that she was "given morphine and Ativan and she is out because of it". Questionably hit the head, did not pass out, has not had vomiting. Not on a blood thinner. Reports that it hurts to walk. Gives only vague history. States that she is having intermittent chest discomfort as well. Evaluated earlier for this as well. TRAVEL OUTSIDE OF THE [place] IN LAST 30 DAYS: No - Related Data Allergies/Adverse Reactions: labetalol [Labetalol] Allergy (Severe, Verified 11/25/17 14:53) swelling, sob Penicillins Allergy (Severe, Verified 11/25/17 14:53) itching duloxetine Allergy (Verified 12/12/17 10:49) latex Allergy (Verified 11/25/17 15:39) linagliptin [From Tradjenta] Allergy (Verified 12/12/17 10:49) terbinafine Allergy (Verified 12/12/17 10:49) Liraglutide [From Victoza] Adverse Reaction (Verified 11/25/17 14:53) nausea/vomitting Past Medical History - Past Medical History Cardiac Medical History: Reports: Hx Congestive Heart Failure, Hx Coronary Artery Disease, Hx Heart Attack - 2007, Hx Hypercholesterolemia, Hx Hypertension Pulmonary Medical History: Reports: Hx Sleep Apnea - On CPap Denies: Hx Asthma, Hx Bronchitis, Hx COPD, Hx Pneumonia Neurological Medical History: Reports: Hx Cerebrovascular Accident. Denies: Hx Seizures Endocrine Medical History: Reports: Hx Diabetes Mellitus Type 1, Hx Diabetes Mellitus Type 2, Hx Hypothyroidism Renal/ Medical History: Reports: Hx End Stage Renal Disease. 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, Other - parathyroidectomy, 3-1/2 glands removed on 01/13/2016; right adrenalectomy - Immunizations Hx Diphtheria, Pertussis, Tetanus Vaccination: Yes History of Influenza Vaccine for 11/2016 - 04/2017 Season: Unknown Physical Exam - Vital signs Vitals: Temp Pulse Resp BP Pulse Ox 98.3 F 97 16 113/54 L 95 12/12/17 21:59 12/12/17 21:59 12/12/17 21:59 12/12/17 21:59 12/12/17 21:59 - General General appearance: Appears well In distress: None - HEENT Head: Normocephalic, Atraumatic - Back Back: Tender - Tender over lumbar area only, cervical and thoracic areas unremarkable, no signs of trauma Course - Re-evaluation Re-evalutation: Patient vague with history. Pain over lower back and right hip area, no other painful areas or signs of trauma. - Vital Signs Vital signs: Temp Pulse Resp BP Pulse Ox 98.3 F 97 16 113/54 L 95 12/12/17 21:59 12/12/17 21:59 12/12/17 21:59 12/12/17 21:59 12/12/17 21:59 Doctor's Discharge - Discharge Referrals: ROBERTO SALDANA MD [Primary Care Provider] - Follow up as needed
--- NOTE | 2017-12-13 00:26 | ER Document Report ---
ED General - General Chief Complaint: Fall Stated Complaint: FELL Time Seen by Provider: 12/12/17 23:29 Notes: Patient is a 57-year-old female with multiple medical problems including diabetes mellitus, end-stage renal disease on dialysis and CHF that presents to the emergency department for chief complaint of altered mental status and fall. History provided by the patient's cousin who is at bedside. Patient was seen in the emergency department earlier today for chest pain, and unsteady gait, she was discharged home, and as she got out of the car at home, she fell forward , and per family was noted to be altered, she apparently had received Ativan and morphine, as it is felt that her chest pain might be related to anxiety due to recent of a close family member. Her cardiac evaluation earlier today was negative. At this time the patient appears rather somnolent, but is arousable, but has garbled speech. They are concerned because she still complaining of the chest pain, and particularly because of her fall, and altered mental status. Past Medical History: End-stage renal disease on dialysis, Tuesday, CAD, CHF, diabetes mellitus Past Surgical History: AV fistula placement in the left arm Social History: No current tobacco, alcohol or drug use Family History: Reviewed and noncontributory for presenting illness Allergies: Reviewed, see documented allergy list. REVIEW OF SYSTEMS: Unless otherwise stated in this report the patient's positive and negative responses for review of systems for constitutional, eyes, ENT, cardiovascular, respiratory, gastrointestinal, neurological, genitourinary, musculoskeletal, and integumentary systems and related systems to the presenting problem are either as stated in the HPI or were not pertinent or were negative for the symptoms and/or complaints related to the presenting medical problem. PHYSICAL EXAMINATION: Vital signs reviewed, nursing noted reviewed. GENERAL: Obese female, somnolent, will open eyes to verbal stimuli, speech is difficult to understand HEAD: Atraumatic, normocephalic. EYES: Eyes appear normal, extraocular movements intact, sclera anicteric, conjunctiva are normal. ENT: nares patent, oropharynx clear without exudates. Moist mucous membranes. NECK: Normal range of motion, supple without lymphadenopathy LUNGS: Breath sounds clear to auscultation bilaterally and equal. No wheezes rales or rhonchi. HEART: Regular rate and rhythm without murmurs ABDOMEN: Soft, obese, nontender, normoactive bowel sounds. No rebound, guarding , or rigidity. No masses appreciated. EXTREMITIES: Nontender, good range of motion, bilateral lower extremity edema, chronic. Left AV fistula, positive bruit and thrill NEUROLOGICAL: No focal neurological deficits, however patient is somnolent, and speech is hard to understand at times. Moves all extremities spontaneously Motor and sensory grossly intact on exam. PSYCH: Somnolent SKIN: Warm, Dry, normal turgor, no rashes or lesions noted on exposed skin TRAVEL OUTSIDE OF THE [place] IN LAST 30 DAYS: No - Related Data Allergies/Adverse Reactions: labetalol [Labetalol] Allergy (Severe, Verified 11/25/17 14:53) swelling, sob Penicillins Allergy (Severe, Verified 11/25/17 14:53) itching duloxetine Allergy (Verified 12/12/17 10:49) latex Allergy (Verified 11/25/17 15:39) linagliptin [From Tradjenta] Allergy (Verified 12/12/17 10:49) terbinafine Allergy (Verified 12/12/17 10:49) Liraglutide [From Victoza] Adverse Reaction (Verified 11/25/17 14:53) nausea/vomitting Past Medical History - Social History Smoking Status: Never Smoker Family History: Reviewed & Not Pertinent - Past Medical History Cardiac Medical History: Reports: Hx Congestive Heart Failure, Hx Coronary Artery Disease, Hx Heart Attack - 2007, Hx Hypercholesterolemia, Hx Hypertension Pulmonary Medical History: Reports: Hx Sleep Apnea - On CPap Denies: Hx Asthma, Hx Bronchitis, Hx COPD, Hx Pneumonia Neurological Medical History: Reports: Hx Cerebrovascular Accident. Denies: Hx Seizures Endocrine Medical History: Reports: Hx Diabetes Mellitus Type 1, Hx Diabetes Mellitus Type 2, Hx Hypothyroidism Renal/ Medical History: Reports: Hx End Stage Renal Disease. Denies: Hx Peritoneal Dialysis Musculoskeletal Medical History: Reports Hx Arthritis, Reports Hx Gout Psychiatric Medical History: Reports: Hx Depression Past Surgical History: Reports: Hx Appendectomy, Hx Section, Hx Cholecystectomy, Hx Hysterectomy, Hx Orthopedic Surgery - cancer removed from back, Other - parathyroidectomy, 3-1/2 glands removed on 01/13/2016; right adrenalectomy - Immunizations Hx Diphtheria, Pertussis, Tetanus Vaccination: Yes Hx Pneumococcal Vaccination: 02/18/15 Physical Exam - Vital signs Vitals: Temp Pulse Resp BP Pulse Ox 98.3 F 97 16 113/54 L 95 12/12/17 21:59 12/12/17 21:59 12/12/17 21:59 12/12/17 21:59 12/12/17 21:59 Course - Re-evaluation Re-evalutation: Patient seen and examined vital signs reviewed. Laboratory data and imaging were ordered as appropriate for the patient's presenting symptoms and complaint, with consideration of any critical or life threatening conditions that may be associated with their obtained history and exam as noted above. Patient was treated with Narcan 0.4 mg Results were reviewed when available and demonstrated essentially unchanged labs from earlier today, expected BUN/creatinine for patient on dialysis The patient was re-evaluated and was improved, more alert, but still mildly somnolent complaining of intermittent chest pain still Evaluation was most consistent with toxic encephalopathy, secondary to morphine , and Benadryl administered earlier today as my suspicion, and chest pain Results were discussed with the patient at this point after careful consideration I feel that that patient should be admitted to the hospital. This was discussed with the patient that it is in the best interest for their care to be admitted for further evaluation and management. Patient agreed with this plan of care. A call was placed to the admitted physician, Dr. Hoskins who graciously accepted the patient onto their service. *Note is created using voice recognition software and may contain spelling, syntax or grammatical errors. Laboratory 12/13/17 12/13/17 02:14 02:14 WBC 13.0 H RBC 4.35 Hgb 11.6 L Hct 36.0 MCV 83 MCH 26.5 L MCHC 32.1 RDW 16.8 H Plt Count 281 Seg Neutrophils % 64.8 Lymphocytes % 21.2 Monocytes % 8.4 Eosinophils % 4.8 Basophils % 0.8 Absolute Neutrophils 8.4 H Absolute Lymphocytes 2.8 Absolute Monocytes 1.1 Absolute Eosinophils 0.6 Absolute Basophils 0.1 Sodium 138.8 Potassium 4.4 Chloride 96 L Carbon Dioxide 24 Anion Gap 19 BUN 44 H Creatinine 8.08 H Est GFR ( Amer) 6 L Est GFR (Non-Af Amer) 5 L Glucose 218 H Calcium 8.8 Chest X-Ray 12/12/17 23:31 IMPRESSION: No evidence of acute intrathoracic disease. Stable cardiomegaly. Hip/Pelvis X-Ray 12/12/17 23:31 IMPRESSION: No evidence of acute osseous injury involving the pelvis or right hip. Lumbar Spine X-Ray 12/12/17 23:31 IMPRESSION: No evidence of acute osseous injury. There are mild degenerative changes of the lumbar spine and pelvis. - Vital Signs Vital signs: Temp Pulse Resp BP Pulse Ox 98.0 F 84 17 127/71 H 97 12/13/17 04:00 12/13/17 04:00 12/13/17 04:00 12/13/17 04:00 12/13/17 04:00 - Laboratory Result Diagrams: 12/13/17 02:14 12/13/17 02:14 Laboratory results interpreted by me: 12/13/17 12/13/17 02:14 02:14 WBC 13.0 H Hgb 11.6 L MCH 26.5 L RDW 16.8 H Absolute Neutrophils 8.4 H Chloride 96 L BUN 44 H Creatinine 8.08 H Est GFR ( Amer) 6 L Est GFR (Non-Af Amer) 5 L Glucose 218 H - EKG Interpretation by Me Additional EKG results interpreted by me: EKG demonstrates sinus rhythm with a ventricular rate of 95 bpm, left axis deviation, QTC 513 ms, no evidence of acute ischemia in this EKG, compared with prior EKG from 12/12/2017, without significant change. Discharge - Discharge Clinical Impression: Encephalopathy Fall Qualifiers: Encounter type: initial encounter Qualified Code(s): W19.XXXA - Unspecified fall, initial encounter Hip pain Qualifiers: Laterality: unspecified laterality Qualified Code(s): M25.559 - Pain in unspecified hip Chest pain Qualifiers: Chest pain type: unspecified Qualified Code(s): R07.9 - Chest pain, unspecified Condition: Stable Disposition: ADMITTED OBSERVATION Admitting Provider: [facility] Admitted: Telemetry
--- NOTE | 2017-12-13 00:29 | RADIOLOGY REPORT (SQ) ---
EXAM DESCRIPTION: X-ray single view chest. CLINICAL HISTORY: 57 years Female, chest pain, fall COMPARISON: Prior portable chest performed on 12/12/2017 TECHNIQUE: Single portable view of the chest performed on 12/13/2017 at 12:10 AM FINDINGS: The lungs are well expanded and are clear. There is no evidence of a pneumothorax. The cardiac silhouette is stable and enlarged. There are atherosclerotic calcifications along the thoracic aorta. The mediastinal contours are normal. No acute osseous abnormality is identified. No focal soft tissue abnormalities are seen. Lines and tubes: There are no life-support lines or tubes. There is, however, a metallic vascular stent projecting over the proximal left upper extremity and left axillary region. IMPRESSION: No evidence of acute intrathoracic disease. Stable cardiomegaly.
--- NOTE | 2017-12-13 00:32 | RADIOLOGY REPORT (SQ) ---
CLINICAL DATA: 57-year-old female with right hip pain status post fall TECHNICAL DATA: Two x-ray views of the pelvis and right hip were performed on 12/13/2017 at 12:11 AM. COMPARISONS: None FINDINGS: There is no evidence of acute fracture or dislocation. No focal lytic or sclerotic bone lesions are identified. There are mild degenerative changes of the hip joints and sacroiliac joints. Bone mineralization is normal There are calcifications along the iliofemoral arteries. No focal soft tissue abnormalities are identified. IMPRESSION: No evidence of acute osseous injury involving the pelvis or right hip.
--- NOTE | 2017-12-13 00:38 | RADIOLOGY REPORT (SQ) ---
CLINICAL DATA: 57-year-old female status post fall with pain. TECHNICAL DATA: Five x-ray views of the lumbar spine were performed including an AP, lateral, bilateral oblique and coned lateral view of the lumbosacral junction. The study was performed on 12/13/2017 at 12:13 AM. Comparison: None. FINDINGS: There are five lumbar vertebrae. The lumbar vertebrae are normal in height and alignment. There is mild disc space narrowing at L5-S1. There is no evidence of acute fracture or subluxation. Bone mineralization is within normal limits. There is very mild degenerative spurring along the lumbar spine most pronounced from L3 through L5. The facet joints are intact. The pedicles are symmetric bilaterally and appear intact. No focal lytic or sclerotic bone lesions are identified. The sacroiliac joints are normal. The surrounding soft tissues are unremarkable. Occasional vascular calcifications are noted. There are surgical clips in the right upper quadrant. There are mild degenerative changes of the hip joints and sacroiliac joints. IMPRESSION: No evidence of acute osseous injury. There are mild degenerative changes of the lumbar spine and pelvis.
[2017-12-13] MEDS ORDERED: NALOXONE HCL INJ/PF 0.4 MG/1 ML SDV IV ONE (01:09)
[2017-12-13 02:55] LABS: ABSOLUTE BASOPHILS # (AUTO) 0.1 10^3/uL (0.0-0.2); ABSOLUTE EOSINOPHILS # (AUTO) 0.6 10^3/uL (0.0-0.6); ABSOLUTE LYMPHOCYTES (AUTO) 2.8 10^3/uL (0.5-4.7); ABSOLUTE MONOCYTES (AUTO) 1.1 10^3/uL (0.1-1.4); ABSOLUTE NEUT (AUTO) 8.4 10^3/uL (1.7-8.2); BASOPHILS % (AUTO) 0.8 % (0-2); EOSINOPHILS % (AUTO) 4.8 % (0-6); HEMOGLOBIN 11.6 g/dL (12.0-15.5); LYMPHOCYTES % (AUTO) 21.2 % (13-45); MEAN CORPUSCULAR HEMOGLOBIN 26.5 pg (27.0-33.4); MEAN CORPUSCULAR HGB CONC 32.1 g/dL (32.0-36.0); MEAN CORPUSCULAR VOLUME 83 fl (80-97); MONOCYTES % (AUTO) 8.4 % (3-13); PLATELET COUNT 281 10^3/uL (150-450); RED BLOOD COUNT 4.35 10^6/uL (3.72-5.28); RED CELL DISTRIBUTION WIDTH 16.8 % (11.5-14.0); SEGMENTED NEUTROPHILS % (AUTO) 64.8 % (42-78); TOTAL CELLS COUNTED % (AUTO) 100 %
[2017-12-13 03:00] LABS: ANION GAP 19 (5-19); BLOOD UREA NITROGEN 44 mg/dL (7-20); CALCIUM 8.8 mg/dL (8.4-10.2); CARBON DIOXIDE 24 mmol/L (22-30); CHLORIDE 96 mmol/L (98-107); GLUCOSE 218 mg/dL (75-110); POTASSIUM 4.4 mmol/L (3.6-5.0); SODIUM 138.8 mmol/L (137-145)
--- NOTE | 2017-12-13 08:20 | RADIOLOGY REPORT (SQ) ---
EXAM DESCRIPTION: CT HEAD WITHOUT COMPLETED DATE/TIME: 12/13/2017 7:51 am REASON FOR STUDY: AMS R41.82 ALTERED MENTAL STATUS, UNSPECIFIED COMPARISON: CT dated 10/06/2017. MR dated 05/05/2016. TECHNIQUE: Axial images acquired through the brain without intravenous contrast. Images reviewed wi th bone, brain and subdural windows. Additional sagittal and coronal reconstructions were generated. Images stored on PACS. All CT scanners at this facility use dose modulation, iterative reconstruction, and/or weight based d osing when appropriate to reduce radiation dose to as low as reasonably achievable (ALARA). [facility]: Dose Right [facility]: CareDose [facility]: Dose Right [facility]: Teradose 4D [facility]: HistoryFile RADIATION DOSE: CT Rad equipment meets quality standard of care and radiation dose reduction techniq ues were employed. CTDIvol: 48.6 mGy. DLP: 880 mGy-cm. mGy. LIMITATIONS: None. FINDINGS: VENTRICLES: Prominent. CEREBRUM: No masses. No hemorrhage. No midline shift. Areas of low density in the white matter mos t likely due to chronic micro-vascular ischemic change. Stable area of decreased attenuation in the medial left occipital lobe. No evidence for acute infarction. CEREBELLUM: No masses. No hemorrhage. No alteration of density. No evidence for acute infarction. EXTRAAXIAL SPACES: Mild age-related involutional change. No fluid collections. No masses. ORBITS AND GLOBE: No intra- or extraconal masses. Normal contour of globe without masses. CALVARIUM: No fracture. PARANASAL SINUSES: No fluid or mucosal thickening. SOFT TISSUES: No mass or hematoma. OTHER: No other significant finding. IMPRESSION: MILD CHRONIC CHANGES OF ATROPHY AND MICROVASCULAR ISCHEMIA. OLD INFARCT IN THE MEDIAL L EFT OCCIPITAL LOBE. NO ACUTE PROCESS. EVIDENCE OF ACUTE STROKE: NO. TECHNICAL DOCUMENTATION: JOB ID: [id number] Quality ID # [id number]: Final reports with documentation of one or more dose reduction techniques (e.g., Au tomated exposure control, adjustment of the mA and/or kV according to patient size, use of iterative reconstruction technique) 2010 [employer]- All Rights Reserved Reading location - IP/workstation name: [facility]
[2017-12-13 09:10] LABS: CREATINE KINASE MB 1.02 ng/mL (<4.55); TROPONIN I 0.047 ng/mL
--- NOTE | 2017-12-13 09:45 | Physician Advisory Note ---
Physician Advisor ProgressNote .: [facility] to the [facility], I have reviewed the medical record for this patient. Physician Advisor Statement: Please consider documenting, if you agree: 1. "CP, suspect due to " Status: Medicare pt, in hospital x 1 MN so far due to acute toxic encephalopathy from combo of Morphine/Ativan/Benadryl given 12/12, & recurrent intermittent CP. 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 Appropriately Obs status w/expectation she will likely be ready for d/c home after 1MN. Please document explicitly if new or persistent clinical issue arises that keeps her from being safe for d/c later today, which might then support change to Inpatient status. (Is her persistent tachycardia concerning & needing further eval? Or felt to be due to grief, or ...?) Thanks! CK
--- NOTE | 2017-12-13 10:40 | EKG REPORT ---
SEVERITY:- ABNORMAL ECG - SINUS RHYTHM BORDERLINE LEFT AXIS DEVIATION PROLONGED QT INTERVAL : Confirmed by: Claribel Edmonds MD 13-Dec-2017 10:39:46
[2017-12-13] MEDS: DIPHENHYDRAMINE HCL 25 MG/10 ML UDC PO PRN (15:21)
[2017-12-13 15:40] LABS: CREATINE KINASE MB 0.86 ng/mL (<4.55); TROPONIN I 0.042 ng/mL
[2017-12-13] MEDS ORDERED: DOCUSATE SODIUM 100 MG CAPSULE PO PRN (20:51)
[2017-12-13] MEDS ORDERED: CHLORPHENIRAMINE MALEATE 4 MG TABLET PO PRN (20:51)
[2017-12-13] MEDS ORDERED: DOXEPIN HCL TP PRN (20:51)
[2017-12-13] MEDS ORDERED: ONDANSETRON HCL 8 MG TABLET PO PRN (20:51)
[2017-12-13 21:02] LABS: CREATINE KINASE MB 0.8 ng/mL (<4.55); TROPONIN I 0.053 ng/mL
--- NOTE | 2017-12-13 21:14 | PDOC H&P ---
History of Present Illness Admission Date/PCP: 12/13/17 03:36 ROBERTO SALDANA MD History of Present Illness: MARIOLA GAR is a 57 year old female.She was in the ER for evaluation of chest pain, unsteady gait, she was evaluated for her symptoms blood work was done, she was discharged home it was felt that it was not necessary to admit to the hospital for further evaluation. Before she was discharged home on the initial visit she received morphine and Ativan because it was felt that the chest pain is probably related to anxiety due to recent of her ex- the father of her children who just from end-stage colon cancer. Patient was returned back to the emergency room because she was extremely somnolent her speech was garbled family says she fell at home and they were concerned about the altered mental status. When I saw her on the floor she was awake alert oriented she stated that she had chest pressure yesterday but there is no chest pressure today.CT head without contrast was done, it demonstrated no hemorrhage, no mass, old infarct the medial left occipital lobe Past Medical History Cardiac Medical History: Reports: Myocardial Infarction - 2007, Hyperlipidema, Hypertension Pulmonary Medical History: Reports: Sleep Apnea - On CPap Endocrine Medical History: Reports: Diabetes Mellitus Type 2, Hypothyroidism Renal/ Medical History: Reports: End Stage Renal Disease Musculoskeltal Medical History: Reports: Arthritis, Gout Psychiatric Medical History: Reports: Depression Hematology: Reports: Anemia Past Surgical History Past Surgical History: Reports: Appendectomy, Section, Cholecystectomy , Hysterectomy, Orthopedic Surgery - cancer removed from back, Other - parathyroidectomy, 3-1/2 glands removed on 01/13/2016; right adrenalectomy Social History Smoking Status: Never Smoker Frequency of Alcohol Use: None Hx Recreational Drug Use: No Drugs: None Hx Prescription Drug Abuse: No Family History Family History: Reviewed & Not Pertinent Parental Family History Reviewed: Yes Children Family History Reviewed: Yes Sibling(s) Family History Reviewed.: Yes Medication/Allergy Home Medications: Amitriptyline HCl [Elavil 75 mg Tablet] 75 mg PO DAILY 12/13/17 Amlodipine/Valsartan/Hcthiazid [Exforge Hct 10-320-25 mg Tab] 1 each PO DAILY Aspirin [Aspirin 81 mg Chewable Tablet] 81 mg PO DAILY 12/13/17 Chlorpheniramine Maleate [Allergy Relief 4 mg Tablet] 4 mg PO Q6HP PRN 12/13/17 Cholecalciferol (Vitamin D3) [Vitamin D3 5000 unit Capsule] 5,000 unit PO DAILY 12/13/17 Dextroamphetamine/Amphetamine [Adderall Xr 10 mg Capsule] 10 mg PO QAM 12/13/17 Docusate Sodium [Colace 100 mg Capsule] 100 mg PO DAILYP PRN 12/13/17 Doxepin HCl 1 applic TP QIDP PRN 12/13/17 Febuxostat [Uloric 80 mg Tablet] 80 mg PO DAILY 12/13/17 Gabapentin [Neurontin 300 mg Capsule] 300 mg PO Q8 12/13/17 Hydralazine HCl [Apresoline 25 mg Tablet] 25 mg PO Q8 12/13/17 Insulin Glargine,Hum.rec.anlog [Lantus Solostar] 58 unit SQ DAILY 12/13/17 Insulin Lispro [Humalog Insulin (Lispro) 100 unit/mL] 5 unit INJ TID 12/13/17 Lidocaine HCl [Xylocaine 5% Ointment 35.44 gm] 1 applic TP DAILY 12/13/17 Lubiprostone [Amitiza 24 Mcg Capsule] 24 mcg PO Q12 12/13/17 Metoprolol Succinate [Toprol XL 100 mg Tablet] 100 mg PO DAILY 12/13/17 Midodrine HCl 10 mg PO TID 12/13/17 Nortriptyline HCl [Pamelor] 50 mg PO QHS 12/13/17 Ondansetron HCl [Zofran 8 mg Tablet] 8 mg PO TIDP PRN 12/13/17 Pravastatin Sodium [Pravachol] 80 mg PO DAILY 12/13/17 Tramadol HCl [Ultram 50 mg Tablet] 50 mg PO QIDP PRN 12/13/17 Allergies/Adverse Reactions: labetalol [Labetalol] Allergy (Severe, Verified 11/25/17 14:53) swelling, sob Penicillins Allergy (Severe, Verified 11/25/17 14:53) itching duloxetine Allergy (Verified 12/12/17 10:49) latex Allergy (Verified 11/25/17 15:39) linagliptin [From Tradjenta] Allergy (Verified 12/12/17 10:49) terbinafine Allergy (Verified 12/12/17 10:49) Liraglutide [From Victoza] Adverse Reaction (Verified 11/25/17 14:53) nausea/vomitting Review of Systems Constitutional: ABSENT: chills, fever(s), headache(s), weight gain, weight loss Eyes: ABSENT: visual disturbances Ears: ABSENT: hearing changes Cardiovascular: PRESENT: chest pain Respiratory: ABSENT: cough, hemoptysis Gastrointestinal: ABSENT: abdominal pain, constipation, diarrhea, hematemesis, hematochezia, nausea, vomiting Genitourinary: ABSENT: dysuria, hematuria Musculoskeletal: ABSENT: joint swelling Integumentary: ABSENT: rash, wounds Neurological: ABSENT: abnormal gait, abnormal speech, confusion, dizziness, focal weakness, syncope Psychiatric: ABSENT: anxiety, depression, homidical ideation, suicidal ideation Endocrine: ABSENT: cold intolerance, heat intolerance, menstrual abnormalities, polydipsia, polyuria Hematologic/Lymphatic: ABSENT: easy bleeding, easy bruising, lymphadenopathy Physical Exam Vital Signs: Temp Pulse Resp BP Pulse Ox 98.4 F 98 18 132/67 H 96 12/13/17 20:41 12/13/17 20:41 12/13/17 20:41 12/13/17 20:41 12/13/17 20:41 Intake & Output 12/12/17 12/13/17 12/14/17 06:59 06:59 06:59 Intake Total 354 Balance 354 Weight 117.5 kg General appearance: PRESENT: no acute distress Head exam: PRESENT: atraumatic, normocephalic Eye exam: PRESENT: PERRLA Ear exam: PRESENT: normal external ear exam Neck exam: PRESENT: full ROM Respiratory exam: PRESENT: clear to auscultation charity Cardiovascular exam: PRESENT: +S1, +S2 GI/Abdominal exam: PRESENT: normal bowel sounds, soft Extremities exam: PRESENT: pedal edema Neurological exam: PRESENT: alert, CN II-XII grossly intact Results Laboratory Results: 12/13/17 12/13/17 12/13/17 08:25 08:25 15:00 Creatine Kinase 43 41 CK-MB (CK-2) 1.02 Troponin I 0.047 12/13/17 12/13/17 15:00 20:24 Creatine Kinase 32 CK-MB (CK-2) 0.86 Troponin I 0.042 Impressions: Chest X-Ray 12/12/17 23:31 IMPRESSION: No evidence of acute intrathoracic disease. Stable cardiomegaly. Hip/Pelvis X-Ray 12/12/17 23:31 IMPRESSION: No evidence of acute osseous injury involving the pelvis or right hip. Lumbar Spine X-Ray 12/12/17 23:31 IMPRESSION: No evidence of acute osseous injury. There are mild degenerative changes of the lumbar spine and pelvis. Head CT 12/13/17 00:00 IMPRESSION: MILD CHRONIC CHANGES OF ATROPHY AND MICROVASCULAR ISCHEMIA. OLD INFARCT IN THE MEDIAL LEFT OCCIPITAL LOBE. NO ACUTE PROCESS. EVIDENCE OF ACUTE STROKE: NO. Assessment & Plan - Diagnosis (1) Chest pain Qualifiers: Chest pain type: other chest pain Qualified Code(s): R07.89 - Other chest pain; R07.8 - Other chest pain Is this a current diagnosis for this admission?: Yes Plan: She has risk factors for ischemic heart disease complain of intermittent chest pressure, the pretest probability for CAD in this patient is very high, will schedule for Cardiolite Lexiscan stress test in the morning (2) Encephalopathy, unspecified Is this a current diagnosis for this admission?: Yes Plan: The excessive somnolence is most likely from morphine and Ativan that was administered in the emergency room, patient sensorium is very clear today (3) End stage chronic kidney disease Is this a current diagnosis for this admission?: Yes
[2017-12-13] MEDS: TRAMADOL HCL 50 MG TABLET PO PRN (21:52)
[2017-12-13] MEDS: NORTRIPTYLINE HCL 25 MG CAPSULE PO SCH (21:54)
[2017-12-13] MEDS ORDERED: (PENDING PHARMACY ID) (Nortriptyline Hcl [Pamelor] 50 MG) PO SCH (22:00)
[2017-12-13] MEDS: HYDRALAZINE HCL 25 MG TABLET PO SCH (22:02)
[2017-12-13] MEDS: LUBIPROSTONE 24 MCG CAPSULE PO SCH (22:02)
[2017-12-13] MEDS: GABAPENTIN 300 MG CAPSULE PO SCH (22:03)
[2017-12-13] MEDS: CLOTRIMAZOLE/BETAMETHASONE DIP CREAM 15 GM TOP SCH (22:03)
[2017-12-13] MEDS: ATORVASTATIN CALCIUM 20 MG TABLET PO SCH (22:03)
[2017-12-14] MEDS: DIPHENHYDRAMINE HCL 25 MG/10 ML UDC PO PRN ×3 (02:39→22:24)
[2017-12-14] MEDS ORDERED: NORMAL SALINE 1000 ML 1,000 ML IV PRN (05:00)
[2017-12-14] MEDS: GABAPENTIN 300 MG CAPSULE PO SCH ×3 (05:04→22:00)
[2017-12-14] MEDS: HYDRALAZINE HCL 25 MG TABLET PO SCH ×3 (05:04→21:59)
[2017-12-14 05:26] LABS: HEMATOCRIT 34.2 % (36.0-47.0); HEMOGLOBIN 11.2 g/dL (12.0-15.5); MEAN CORPUSCULAR HGB CONC 32.8 g/dL (32.0-36.0); MEAN CORPUSCULAR VOLUME 82 fl (80-97); PLATELET COUNT 281 10^3/uL (150-450); RED BLOOD COUNT 4.16 10^6/uL (3.72-5.28); WHITE BLOOD COUNT 9.7 10^3/uL (4.0-10.5)
[2017-12-14 05:42] LABS: ANION GAP 19 (5-19); BLOOD UREA NITROGEN 54 mg/dL (7-20); CALCIUM 8.2 mg/dL (8.4-10.2); CARBON DIOXIDE 24 mmol/L (22-30); CHLORIDE 96 mmol/L (98-107); GLUCOSE 253 mg/dL (75-110); POTASSIUM 4.9 mmol/L (3.6-5.0); SODIUM 138.7 mmol/L (137-145)
[2017-12-14] MEDS ORDERED: AMPHETAMINE PO SCH (08:00)
[2017-12-14] MEDS ORDERED: DEXTROAMPHETAMINE PO SCH (08:00)
[2017-12-14] MEDS: INSULIN LISPRO 100 UNIT/ML 3 ML VIAL SUBCUT SCH ×3 (08:22→22:44)
[2017-12-14] MEDS ORDERED: VALSARTAN 160 MG TABLET PO SCH (10:00)
[2017-12-14] MEDS ORDERED: (PENDING PHARMACY ID) (Midodrine Hcl [Midodrine Hcl] 10 MG) PO SCH (10:00)
[2017-12-14] MEDS ORDERED: INSULIN GLARGINE,HUM.REC.ANLOG 1,000 UNIT/10 ML UNIT SUBCUT SCH (10:00)
[2017-12-14] MEDS ORDERED: AMLODIPINE BESYLATE 10 MG TABLET PO SCH (10:00)
[2017-12-14] MEDS ORDERED: HYDROCHLOROTHIAZIDE 25 MG TABLET PO SCH (10:00)
[2017-12-14] MEDS ORDERED: CHOLECALCIFEROL (D3) 1,000 UNIT TABLET PO SCH (10:00)
[2017-12-14] MEDS ORDERED: METOPROLOL SUCCINATE 50 MG TAB.SR.24H PO SCH (10:00)
[2017-12-14] MEDS ORDERED: ASPIRIN 81 MG TABLET, CHEWABLE PO SCH (10:00)
[2017-12-14] MEDS ORDERED: AMITRIPTYLINE HCL 75 MG TABLET PO SCH (10:00)
[2017-12-14] MEDS ORDERED: (PENDING PHARMACY ID) (Amlodipine/Valsartan/Hcthiazid [Exforge Hct 10-320-25 Mg Tab] 1 EAC PO SCH (10:00)
[2017-12-14] MEDS ORDERED: LIDOCAINE 5% OINTMENT 35.44 GM TP SCH (10:00)
[2017-12-14] MEDS ORDERED: FEBUXOSTAT 80 MG TABLET PO SCH (10:00)
[2017-12-14] MEDS ORDERED: INSULIN GLARGINE,HUM.REC.ANLOG 300 UNIT/3 ML INSULN.PEN SUBCUT SCH (10:00)
[2017-12-14] MEDS: LUBIPROSTONE 24 MCG CAPSULE PO SCH ×2 (11:10→21:58)
[2017-12-14] MEDS: CLOTRIMAZOLE/BETAMETHASONE DIP CREAM 15 GM TOP SCH ×2 (11:59→22:24)
[2017-12-14] MEDS: MIDODRINE HCL 5 MG TABLET PO SCH ×2 (12:01→15:59)
--- NOTE | 2017-12-14 17:33 | PDOC DISCHARGE SUMMARY ---
General - Admit/Disc Date/PCP Admission Date/Primary Care Provider: 12/13/17 03:36 ROBERTO SALDANA MD Discharge Date: 12/14/17 - Discharge Diagnosis (1) Chest pain Is this a current diagnosis for this admission?: Yes (2) Encephalopathy, unspecified Is this a current diagnosis for this admission?: Yes (3) End stage chronic kidney disease Is this a current diagnosis for this admission?: Yes - Additional Information Home Medications: Amitriptyline HCl [Elavil 75 mg Tablet] 75 mg PO DAILY 12/13/17 Amlodipine/Valsartan/Hcthiazid [Exforge Hct 10-320-25 mg Tab] 1 each PO DAILY Aspirin [Aspirin 81 mg Chewable Tablet] 81 mg PO DAILY 12/13/17 Chlorpheniramine Maleate [Allergy Relief 4 mg Tablet] 4 mg PO Q6HP PRN 12/13/17 Cholecalciferol (Vitamin D3) [Vitamin D3 5000 unit Capsule] 5,000 unit PO DAILY 12/13/17 Dextroamphetamine/Amphetamine [Adderall Xr 10 mg Capsule] 10 mg PO QAM 12/13/17 Docusate Sodium [Colace 100 mg Capsule] 100 mg PO DAILYP PRN 12/13/17 Doxepin HCl 1 applic TP QIDP PRN 12/13/17 Febuxostat [Uloric 80 mg Tablet] 80 mg PO DAILY 12/13/17 Gabapentin [Neurontin 300 mg Capsule] 300 mg PO Q8 12/13/17 Hydralazine HCl [Apresoline 25 mg Tablet] 25 mg PO Q8 12/13/17 Insulin Glargine,Hum.rec.anlog [Lantus Solostar] 58 unit SQ DAILY 12/13/17 Insulin Lispro [Humalog Insulin (Lispro) 100 unit/mL] 5 unit INJ TID 12/13/17 Lidocaine HCl [Xylocaine 5% Ointment 35.44 gm] 1 applic TP DAILY 12/13/17 Lubiprostone [Amitiza 24 Mcg Capsule] 24 mcg PO Q12 12/13/17 Metoprolol Succinate [Toprol XL 100 mg Tablet] 100 mg PO DAILY 12/13/17 Midodrine HCl 10 mg PO TID 12/13/17 Nortriptyline HCl [Pamelor] 50 mg PO QHS 12/13/17 Ondansetron HCl [Zofran 8 mg Tablet] 8 mg PO TIDP PRN 12/13/17 Pravastatin Sodium [Pravachol] 80 mg PO DAILY 12/13/17 Tramadol HCl [Ultram 50 mg Tablet] 50 mg PO QIDP PRN 12/13/17 History of Present Illness History of Present Illness: MARIOLA GAR is a 57 year old female.She was in the ER for evaluation of chest pain, unsteady gait, she was evaluated for her symptoms blood work was done, she was discharged home it was felt that it was not necessary to admit to the hospital for further evaluation. Before she was discharged home on the initial visit she received morphine and Ativan because it was felt that the chest pain is probably related to anxiety due to recent of her ex- the father of her children who just from end-stage colon cancer. Patient was returned back to the emergency room because she was extremely somnolent her speech was garbled family says she fell at home and they were concerned about the altered mental status. When I saw her on the floor she was awake alert oriented she stated that she had chest pressure yesterday but there is no chest pressure today.CT head without contrast was done, it demonstrated no hemorrhage, no mass, old infarct the medial left occipital lobe Hospital Course Hospital Course: Patient was admitted for the management of altered mental status, chest pain the altered mental status is felt to be due to the administration of morphine and lorazepam in the emergency room. Patient could not be kept awake and alert enough for discharge from the ER so it was decided to have her admitted for further evaluation. She did complain of chest pain, 3 sets of cardiac enzymes were negative for acute OH, a Cardiolite Lexiscan stress test was ordered this morning but it was a challenge to get any IV access for the test to be done, the plan is to discharge her home to have outpatient stress test done. She also have end-stage renal disease on hemodialysis she was seen by nephrology and she underwent hemodialysis today Physical Exam Vital Signs: Temp Pulse Resp BP Pulse Ox 97.9 F 93 14 107/52 L 98 12/14/17 11:13 12/14/17 14:00 12/14/17 08:37 12/14/17 11:13 12/14/17 11:13 Intake & Output 12/13/17 12/14/17 12/15/17 06:59 06:59 06:59 Intake Total 772 Balance 772 Weight 117.5 kg 118.3 kg General appearance: PRESENT: no acute distress, well-developed, well-nourished Head exam: PRESENT: atraumatic, normocephalic Eye exam: PRESENT: conjunctiva pink, EOMI, PERRLA Ear exam: PRESENT: normal external ear exam Mouth exam: PRESENT: moist, tongue midline Neck exam: PRESENT: full ROM Respiratory exam: PRESENT: clear to auscultation charity Cardiovascular exam: PRESENT: RRR, +S1, +S2 Vascular exam: PRESENT: normal capillary refill GI/Abdominal exam: PRESENT: normal bowel sounds, soft Rectal exam: PRESENT: deferred Neurological exam: PRESENT: alert, awake, oriented to person, oriented to place , oriented to time, oriented to situation, CN II-XII grossly intact Psychiatric exam: PRESENT: appropriate affect, normal mood Skin exam: PRESENT: dry, intact, warm Results Laboratory Results: 12/14/17 05:00 12/14/17 05:00 12/14/17 12/14/17 05:00 05:00 WBC 9.7 RBC 4.16 Hgb 11.2 L Hct 34.2 L MCV 82 MCH 27.0 MCHC 32.8 RDW 17.0 H Plt Count 281 Sodium 138.7 Potassium 4.9 Chloride 96 L Carbon Dioxide 24 Anion Gap 19 BUN 54 H Creatinine 10.28 H Est GFR ( Amer) 5 L Est GFR (Non-Af Amer) 4 L Glucose 253 H Calcium 8.2 L 12/13/17 12/13/17 12/13/17 08:25 08:25 15:00 Creatine Kinase 43 41 CK-MB (CK-2) 1.02 Troponin I 0.047 12/13/17 12/13/17 12/13/17 15:00 20:24 20:24 Creatine Kinase 32 CK-MB (CK-2) 0.86 0.80 Troponin I 0.042 0.053 Impressions: Chest X-Ray 12/12/17 23:31 IMPRESSION: No evidence of acute intrathoracic disease. Stable cardiomegaly. Hip/Pelvis X-Ray 12/12/17 23:31 IMPRESSION: No evidence of acute osseous injury involving the pelvis or right hip. Lumbar Spine X-Ray 12/12/17 23:31 IMPRESSION: No evidence of acute osseous injury. There are mild degenerative changes of the lumbar spine and pelvis. Head CT 12/13/17 00:00 IMPRESSION: MILD CHRONIC CHANGES OF ATROPHY AND MICROVASCULAR ISCHEMIA. OLD INFARCT IN THE MEDIAL LEFT OCCIPITAL LOBE. NO ACUTE PROCESS. EVIDENCE OF ACUTE STROKE: NO. Qualifiers - * PATIENT BEING DISCHARGED WITH ANY OF THE FOLLOWING DIAGNOSIS: No
--- NOTE | 2017-12-14 18:59 | PDOC CONSULTATION ---
Consultation Consult Date: 12/14/17 Attending physician:: ROBERTO SALDANA Consult reason:: I was asked to see the patient to supervise dialysis while here in the hospital. History of Present Illness Admission Date/PCP: 12/13/17 03:36 ROBERTO SALDANA MD History of Present Illness: MARIOLA GAR is a 57 year old female known to me with history of ESRD on maintenance hemodialysis 3 times a week, coronary artery disease, hypertension, diabetes mellitus type 2 who was admitted for observation because of altered mental status. Apparently the patient presented 2 nights ago for chest pains and unsteady gait. She was given morphine and lorazepam and was discharged home. Of note patient's ex- has just last Tuesday. She also has history of chronic anxiety at baseline. At home she became somnolent and fell so she was brought back to the emergency room and was subsequently admitted. She continues to have intermittent chest pains. Her mental status improved to her normal baseline after the morphine and lorazepam most likely weaned off her system. She was supposed to have stress test this morning but since there was no IV line that was not done. I am seeing the patient on dialysis this evening. She does not really have any new complaints and she was comfortable going home tonight. She is tolerating dialysis at this time with acceptable vital signs and so far no complications. Past Medical History Cardiac Medical History: Reports: CHF-Diastolic, Coronary Artery Disease, Hyperlipidemia, Hypertension-primary, Myocardial Infarction - 2007 Pulmonary Medical History: Reports: Sleep Apnea - On CPap Endocrine Medical History: Reports: Diabetes Mellitus Type 2, Hypothyroidism Complications of Diabetes: Reports: Nephropathy, Retinopathy Renal/ Medical History: Reports: End Stage Renal Disease, Hypercalcemia, Other - Primary hyperparathyroidism, status post parathyroidectomy Musculoskeltal Medical History: Reports: Arthritis, Gout, Systemic Lupus Erythematosus Psychiatric Medical History: Reports: Depression Hematology Medical History: Reports Anemia of Chronic Kidney Disease Past Surgical History Past Surgical History: Reports: Appendectomy, Section, Cholecystectomy , Hysterectomy, Orthopedic Surgery - cancer removed from back, Other - parathyroidectomy, 3-1/2 glands removed on 01/13/2016; right adrenalectomy Social History Information Source: [facility] Records Smoking Status: Never Smoker Frequency of Alcohol Use: None Hx Recreational Drug Use: No Drugs: None Hx Prescription Drug Abuse: No Family History Family History: Reviewed & Not Pertinent Parental Family History Reviewed: Yes Children Family History Reviewed: Yes Sibling(s) Family History Reviewed.: Yes Medication/Allergy Home Medications: Amitriptyline HCl [Elavil 75 mg Tablet] 75 mg PO DAILY 12/13/17 Amlodipine/Valsartan/Hcthiazid [Exforge Hct 10-320-25 mg Tab] 1 each PO DAILY Aspirin [Aspirin 81 mg Chewable Tablet] 81 mg PO DAILY 12/13/17 Chlorpheniramine Maleate [Allergy Relief 4 mg Tablet] 4 mg PO Q6HP PRN 12/13/17 Cholecalciferol (Vitamin D3) [Vitamin D3 5000 unit Capsule] 5,000 unit PO DAILY 12/13/17 Dextroamphetamine/Amphetamine [Adderall Xr 10 mg Capsule] 10 mg PO QAM 12/13/17 Docusate Sodium [Colace 100 mg Capsule] 100 mg PO DAILYP PRN 12/13/17 Doxepin HCl 1 applic TP QIDP PRN 12/13/17 Febuxostat [Uloric 80 mg Tablet] 80 mg PO DAILY 12/13/17 Gabapentin [Neurontin 300 mg Capsule] 300 mg PO Q8 12/13/17 Hydralazine HCl [Apresoline 25 mg Tablet] 25 mg PO Q8 12/13/17 Insulin Glargine,Hum.rec.anlog [Lantus Solostar] 58 unit SQ DAILY 12/13/17 Insulin Lispro [Humalog Insulin (Lispro) 100 unit/mL] 5 unit INJ TID 12/13/17 Lidocaine HCl [Xylocaine 5% Ointment 35.44 gm] 1 applic TP DAILY 12/13/17 Lubiprostone [Amitiza 24 Mcg Capsule] 24 mcg PO Q12 12/13/17 Metoprolol Succinate [Toprol XL 100 mg Tablet] 100 mg PO DAILY 12/13/17 Midodrine HCl 10 mg PO TID 12/13/17 Nortriptyline HCl [Pamelor] 50 mg PO QHS 12/13/17 Ondansetron HCl [Zofran 8 mg Tablet] 8 mg PO TIDP PRN 12/13/17 Pravastatin Sodium [Pravachol] 80 mg PO DAILY 12/13/17 Tramadol HCl [Ultram 50 mg Tablet] 50 mg PO QIDP PRN 12/13/17 Allergies/Adverse Reactions: labetalol [Labetalol] Allergy (Severe, Verified 11/25/17 14:53) swelling, sob Penicillins Allergy (Severe, Verified 11/25/17 14:53) itching duloxetine Allergy (Verified 12/12/17 10:49) latex Allergy (Verified 11/25/17 15:39) linagliptin [From Tradjenta] Allergy (Verified 12/12/17 10:49) terbinafine Allergy (Verified 12/12/17 10:49) Liraglutide [From Victoza] Adverse Reaction (Verified 11/25/17 14:53) nausea/vomitting Review of Systems All systems: reviewed and no additional remarkable complaints except as stated Review of Systems: Constitutional: ABSENT: chills, fatigue, fever(s), headache(s), weight gain, weight loss Eyes: ABSENT: visual disturbances Ears: ABSENT: hearing changes Cardiovascular: ABSENT: Dyspnea on exertion, edema, orthropnea, palpitations; admits intermittent chest pains Respiratory: ABSENT: cough, dyspnea, hemoptysis Gastrointestinal: ABSENT: abdominal pain, constipation, diarrhea, hematemesis, hematochezia, nausea, vomiting Genitourinary: ABSENT: dysuria, hematuria Musculoskeletal: ABSENT: joint swelling Integumentary: ABSENT: rash, wounds Neurological: ABSENT: abnormal gait, abnormal speech, confusion, dizziness, focal weakness, numbness, syncope; admits chronic neuropathic leg pains Psychiatric: ABSENT: Depression; admits anxiety Endocrine: ABSENT: cold intolerance, heat intolerance, polydipsia, polyuria Hematologic/Lymphatic: ABSENT: easy bleeding, easy bruising, lymphadenopathy Physical Exam Vital Signs: Temp Pulse Resp BP Pulse Ox 97.5 F 93 16 124/62 100 12/14/17 16:00 12/14/17 16:00 12/14/17 16:00 12/14/17 16:00 12/14/17 16:00 Intake & Output 12/13/17 12/14/17 12/15/17 06:59 06:59 06:59 Intake Total 772 586 Balance 772 586 Weight 117.5 kg 118.3 kg Vitals during dialysis: Blood pressure 118/58, heart rate of 87, blood flow rate 400 mL/min, dialysate flow rate 800 mL/min. Exam: General appearance: No acute distress, cooperative, well-developed, well- nourished Head exam: PRESENT: atraumatic, normocephalic Eye exam: PRESENT: Conjunctiva [place], EOMI, PERRLA. ABSENT: conjunctival injection, scleral icterus Mouth exam: PRESENT: moist, neck supple, tongue midline Neck exam: PRESENT: full ROM. ABSENT: carotid bruit, JVD, lymphadenopathy, thyromegaly Respiratory exam: PRESENT: clear to auscultation bilaterally. ABSENT: rales, rhonchi, stridor, wheezes Cardiovascular exam: PRESENT: RRR, +S1, +S2. ABSENT: systolic murmur Pulses: PRESENT: normal radial pulses, normal dorsalis pedis pulses GI/Abdominal exam: PRESENT: normal bowel sounds, soft. ABSENT: guarding, mass, tenderness Rectal exam: Deferred Extremities exam: PRESENT: full ROM. ABSENT: calf tenderness, pedal edema Musculoskeletal: PRESENT: full ROM. ABSENT: deformity Neurological exam: PRESENT: alert, Awake, Oriented to person, Oriented to place , Oriented to time, reflexes normal, CN II-XII grossly intact. Positive tenderness on her lower extremities likely due to neuropathic pain ABSENT: motor sensory deficit Psychiatric exam: PRESENT: appropriate affect, normal mood. ABSENT: homicidal ideation, suicidal ideation Skin exam: PRESENT: intact, dry, warm. ABSENT: rash Results Laboratory Results: 12/14/17 05:00 12/14/17 05:00 12/14/17 12/14/17 05:00 05:00 WBC 9.7 RBC 4.16 Hgb 11.2 L Hct 34.2 L MCV 82 MCH 27.0 MCHC 32.8 RDW 17.0 H Plt Count 281 Sodium 138.7 Potassium 4.9 Chloride 96 L Carbon Dioxide 24 Anion Gap 19 BUN 54 H Creatinine 10.28 H Est GFR ( Amer) 5 L Est GFR (Non-Af Amer) 4 L Glucose 253 H Calcium 8.2 L 12/13/17 12/13/17 12/13/17 08:25 08:25 15:00 Creatine Kinase 43 41 CK-MB (CK-2) 1.02 Troponin I 0.047 12/13/17 12/13/17 12/13/17 15:00 20:24 20:24 Creatine Kinase 32 CK-MB (CK-2) 0.86 0.80 Troponin I 0.042 0.053 Impressions: Chest X-Ray 12/12/17 23:31 IMPRESSION: No evidence of acute intrathoracic disease. Stable cardiomegaly. Hip/Pelvis X-Ray 12/12/17 23:31 IMPRESSION: No evidence of acute osseous injury involving the pelvis or right hip. Lumbar Spine X-Ray 12/12/17 23:31 IMPRESSION: No evidence of acute osseous injury. There are mild degenerative changes of the lumbar spine and pelvis. Head CT 12/13/17 00:00 IMPRESSION: MILD CHRONIC CHANGES OF ATROPHY AND MICROVASCULAR ISCHEMIA. OLD INFARCT IN THE MEDIAL LEFT OCCIPITAL LOBE. NO ACUTE PROCESS. EVIDENCE OF ACUTE STROKE: NO. Assessment & Plan - Diagnosis (1) End stage chronic kidney disease Is this a current diagnosis for this admission?: Yes Plan: We will do dialysis today for 3 hours, using the patient's AV fistula, with 2 potassium bath, blood flow rate of 400-450 mL per minute, dialysate flow rate of 800 mL per minute, ultrafiltration 2-3 L as tolerated, no heparin and no Procrit. Patient will be monitored throughout dialysis treatment. From nephrology standpoint I think she is a stable enough to be sent home today. (2) Chest pain Qualifiers: Chest pain type: unspecified Qualified Code(s): R07.9 - Chest pain, unspecified Is this a current diagnosis for this admission?: Yes Plan: Atypical and could be related to anxiety as her ex- just recently. Agree with Dr. Saldana's plan for stress test as an outpatient (3) Anemia in chronic kidney disease (CKD) Is this a current diagnosis for this admission?: Yes (4) Hypertension Is this a current diagnosis for this admission?: Yes - Time Time Spent: 50 to 70 Minutes
[2017-12-14] MEDS: ATORVASTATIN CALCIUM 20 MG TABLET PO SCH (21:59)
[2017-12-14] MEDS: NORTRIPTYLINE HCL 25 MG CAPSULE PO SCH (22:24)
[2017-12-14] MEDS: TRAMADOL HCL 50 MG TABLET PO PRN (22:24)
[2017-12-15] MEDS: HYDRALAZINE HCL 25 MG TABLET PO SCH (05:07)
[2017-12-15] MEDS: GABAPENTIN 300 MG CAPSULE PO SCH (05:08)
[2017-12-15] MEDS: INSULIN LISPRO 100 UNIT/ML 3 ML VIAL SUBCUT SCH (08:05)
[2017-12-15 08:26] VITALS: BP 124/62
== END 2017-12-15 08:55 | disposition home or self-care (01) ==
LOC: ER 21:52 → EH 12-13 03:36 → 4N 12-13 05:45
PROVIDERS: ADMIT Internal Medicine; ATTEND Internal Medicine
PROC: 5A1D70Z Performance of Urinary Filtration, Intermittent, Less than 6 Hours Per Day (ICD-10-PCS; principal; 2017-12-14)
DX: R07.89 Other chest pain (principal); G93.40 Encephalopathy, unspecified; I13.2 Hypertensive heart and chronic kidney disease with heart failure and with stage 5 chronic kidney disease, or end stage renal disease; I50.30 Unspecified diastolic (congestive) heart failure; E11.22 Type 2 diabetes mellitus with diabetic chronic kidney disease; N18.6 End stage renal disease; I25.10 Atherosclerotic heart disease of native coronary artery without angina pectoris; M25.559 Pain in unspecified hip; M54.5 Low back pain; W19.XXXA Unspecified fall, initial encounter; Y92.009 Unspecified place in unspecified non-institutional (private) residence as the place of occurrence of the external cause; E66.9 Obesity, unspecified; F41.9 Anxiety disorder, unspecified; I25.2 Old myocardial infarction; E11.21 Type 2 diabetes mellitus with diabetic nephropathy; E11.319 Type 2 diabetes mellitus with unspecified diabetic retinopathy without macular edema; M32.9 Systemic lupus erythematosus, unspecified; D63.1 Anemia in chronic kidney disease; M10.9 Gout, unspecified; G47.30 Sleep apnea, unspecified; Z99.2 Dependence on renal dialysis; Z79.82 Long term (current) use of aspirin; Z79.899 Other long term (current) drug therapy; Z63.4 Disappearance and death of family member; Z90.49 Acquired absence of other specified parts of digestive tract; Z86.73 Personal history of transient ischemic attack (TIA), and cerebral infarction without residual deficits; Z79.4 Long term (current) use of insulin; Z68.42 Body mass index [BMI] 45.0-49.9, adult
CPT/HCPCS: 93005; 99285; 36415 ×2; 82553; 82962 ×3; 82550; 85025; 85027; 80048 ×2; 84484; 71045; 73502; 72110; 70450; 93010; G0378 ×3; A9270 ×11; J3490; J2310; G0257; J1815

== ENCOUNTER 2018-01-11 12:43 | Emergency (ER) | payer MEDICARE, MEDICAID ==
--- NOTE | 2018-01-11 13:07 | EKG REPORT ---
SEVERITY:- ABNORMAL ECG - SINUS RHYTHM BORDERLINE LEFT AXIS DEVIATION PROLONGED QT INTERVAL NONSPECIFIC ST-T CHANGES LATERAL LEADS. : Confirmed by: Ulysses Walden MD 11-Jan-2018 13:06:33
[2018-01-11] MEDS ORDERED: ONDANSETRON HCL INJ/PF 4 MG/2 ML SDV IV ONE (13:32)
--- NOTE | 2018-01-11 13:33 | ER Document Report ---
ED Medical Screen (RME) - General Chief Complaint: Nausea/Vomiting/Diarrhea Stated Complaint: VOMITING Time Seen by Provider: 01/11/18 13:26 Notes: 57 years old female with end-stage renal disease on dialysis presents today with itching all over the place with multiple rashes as well as nausea vomiting loose stools. No fever chills or other constitutional symptoms. TRAVEL OUTSIDE OF THE [place] IN LAST 30 DAYS: No - Related Data Allergies/Adverse Reactions: labetalol [Labetalol] Allergy (Severe, Verified 01/11/18 12:48) swelling, sob Penicillins Allergy (Severe, Verified 01/11/18 12:48) itching duloxetine Allergy (Verified 01/11/18 12:48) latex Allergy (Verified 01/11/18 12:48) linagliptin [From Tradjenta] Allergy (Verified 01/11/18 12:48) terbinafine Allergy (Verified 01/11/18 12:48) Liraglutide [From Victoza] Adverse Reaction (Verified 01/11/18 12:48) nausea/vomitting Past Medical History - Past Medical History Cardiac Medical History: Reports: Hx Congestive Heart Failure, Hx Coronary Artery Disease, Hx Heart Attack - 2007, Hx Hypercholesterolemia, Hx Hypertension Pulmonary Medical History: Reports: Hx Sleep Apnea - On CPap Denies: Hx Asthma, Hx Bronchitis, Hx COPD, Hx Pneumonia Neurological Medical History: Reports: Hx Cerebrovascular Accident. Denies: Hx Seizures Endocrine Medical History: Reports: Hx Diabetes Mellitus Type 1, Hx Diabetes Mellitus Type 2, Hx Hypothyroidism Renal/ Medical History: Reports: Hx End Stage Renal Disease. 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, Other - parathyroidectomy, 3-1/2 glands removed on 01/13/2016; right adrenalectomy - Immunizations Hx Diphtheria, Pertussis, Tetanus Vaccination: Yes History of Influenza Vaccine for 11/2016 - 04/2017 Season: Unknown Physical Exam - Vital signs Vitals: Temp Pulse Resp BP Pulse Ox 97.9 F 94 16 150/84 H 97 01/11/18 13:04 01/11/18 13:04 01/11/18 13:04 01/11/18 13:04 01/11/18 13:04 Course - Vital Signs Vital signs: Temp Pulse Resp BP Pulse Ox 97.9 F 94 16 150/84 H 97 01/11/18 13:04 01/11/18 13:04 01/11/18 13:04 01/11/18 13:04 01/11/18 13:04 Doctor's Discharge - Discharge Referrals: ROBERTO SALDANA MD [Primary Care Provider] - Follow up as needed
[2018-01-11 14:22] LABS: ABSOLUTE EOSINOPHILS # (AUTO) 0.3 10^3/uL (0.0-0.6); ABSOLUTE LYMPHOCYTES (AUTO) 1.5 10^3/uL (0.5-4.7); ABSOLUTE MONOCYTES (AUTO) 0.6 10^3/uL (0.1-1.4); ABSOLUTE NEUT (AUTO) 5.4 10^3/uL (1.7-8.2); BASOPHILS % (AUTO) 0.4 % (0-2); EOSINOPHILS % (AUTO) 3.9 % (0-6); HEMOGLOBIN 12.2 g/dL (12.0-15.5); LYMPHOCYTES % (AUTO) 18.7 % (13-45); MEAN CORPUSCULAR HEMOGLOBIN 26.3 pg (27.0-33.4); MEAN CORPUSCULAR HGB CONC 32.1 g/dL (32.0-36.0); MEAN CORPUSCULAR VOLUME 82 fl (80-97); MONOCYTES % (AUTO) 7.9 % (3-13); PLATELET COUNT 211 10^3/uL (150-450); RED BLOOD COUNT 4.62 10^6/uL (3.72-5.28); RED CELL DISTRIBUTION WIDTH 16.8 % (11.5-14.0); SEGMENTED NEUTROPHILS % (AUTO) 69.1 % (42-78); TOTAL CELLS COUNTED % (AUTO) 100 %; WHITE BLOOD COUNT 7.8 10^3/uL (4.0-10.5)
[2018-01-11 14:45] LABS: ALANINE AMINOTRANSFERASE 29 U/L (9-52); ALBUMIN 3.8 g/dL (3.5-5.0); ALKALINE PHOSPHATASE 237 U/L (38-126); ANION GAP 16 (5-19); ASPARTATE AMINO TRANSFERASE 27 U/L (14-36); BILIRUBIN,DIRECT 0.8 mg/dL (0.0-0.4); BILIRUBIN,TOTAL 1.1 mg/dL (0.2-1.3); BLOOD UREA NITROGEN 29 mg/dL (7-20); CALCIUM 7.9 mg/dL (8.4-10.2); CARBON DIOXIDE 27 mmol/L (22-30); CHLORIDE 91 mmol/L (98-107); LIPASE 59.1 U/L (23-300); POTASSIUM 4.7 mmol/L (3.6-5.0); SODIUM 134.4 mmol/L (137-145)
--- NOTE | 2018-01-11 14:55 | RADIOLOGY REPORT (SQ) ---
EXAM DESCRIPTION: ACUTE ABDOMEN SERIES COMPLETED DATE/TIME: 01/11/2018 2:35 pm REASON FOR STUDY: Abdominal pain COMPARISON: None. NUMBER OF VIEWS: Three views. TECHNIQUE: Frontal chest, supine abdomen and upright/decubitus abdomen radiographic images acquired. LIMITATIONS: None. FINDINGS: CHEST: Cardiomegaly, stable finding. No acute pulmonary consolidation. No pneumothorax or pleural effusion. FREE AIR: None. No abnormal gas collections. BOWEL GAS PATTERN: Nonobstructive pattern. No dilated loops or air fluid levels. CALCIFICATIONS: No suspicious calcifications. HARDWARE: None in the abdomen. SOFT TISSUES: No gross mass or suggestion of organomegaly. BONES: No acute fracture. No worrisome bone lesions. OTHER: Partially visualized left axillary vascular stent, stable finding. IMPRESSION: 1. Stable appearance of the chest since the prior study dated 12/13/2017. No acute pul monary findings. 2. Cardiomegaly, stable finding. 3. NO RADIOGRAPHIC EVIDENCE FOR ACUTE ABDOMINAL DISEASE. TECHNICAL DOCUMENTATION: JOB ID: [id number] [email or web address] All Rights Reserved Reading location - IP/workstation name: [email or web address]
[2018-01-11 15:07] LABS: GLUCOSE 586 mg/dL (75-110)
[2018-01-11] MEDS ORDERED: NORMAL SALINE 500 ML IV ONE (15:51)
[2018-01-11] MEDS ORDERED: INSULIN REG, HUMAN 100 UNIT/ML 3 ML VIAL (PYX) SUBCUT STA ×2 (15:52→19:28)
[2018-01-11 15:54] LABS: VENOUS BLOOD BASE EXCESS 1.9 mmol/L; VENOUS BLOOD HCO3 29.3 mmol/L (20-32); VENOUS BLOOD PCO2 58.9 mmHg (35-63); VENOUS BLOOD PH 7.32 (7.30-7.42)
[2018-01-11] MEDS ORDERED: DIAZEPAM INJ 10 MG/2 ML DISP.SYRIN IV ONE (16:49)
--- NOTE | 2018-01-11 18:30 | RADIOLOGY REPORT (SQ) ---
EXAM DESCRIPTION: CT ABD/PELVIS NO ORAL OR IV COMPLETED DATE/TIME: 01/11/2018 6:13 pm REASON FOR STUDY: ABD PAIN COMPARISON: 06/27/2012 TECHNIQUE: CT scan of the abdomen and pelvis performed without intravenous or oral contrast. Images reviewed with lung, soft tissue, and bone windows. Reconstructed coronal and sagittal MPR images revi ewed. All images stored on PACS. All CT scanners at this facility use dose modulation, iterative reconstruction, and/or weight based d osing when appropriate to reduce radiation dose to as low as reasonably achievable (ALARA). [facility]: Dose Right [facility]: CareDose [facility]: Dose Right [facility]: Teradose 4D [facility]: Smart Munch a Bunch RADIATION DOSE: CT Rad equipment meets quality standard of care and radiation dose reduction techniq ues were employed. CTDIvol: 20.4 mGy. DLP: 1143 mGy-cm.mGy. LIMITATIONS: None. FINDINGS: LOWER CHEST: No significant findings. No nodules or infiltrates. NON-CONTRASTED LIVER, SPLEEN, ADRENALS: Evaluation limited by lack of IV contrast. No identified sign ificant masses. PANCREAS: No masses. No peripancreatic inflammatory changes. GALLBLADDER: No identified stones by CT criteria. No inflammatory changes to suggest cholecystitis. RIGHT KIDNEY AND URETER: No suspicious masses. Assessment limited by lack of IV contrast. No signif icant calcifications. No hydronephrosis or hydroureter. LEFT KIDNEY AND URETER: No suspicious masses. Assessment limited by lack of IV contrast. No signifi cant calcifications. No hydronephrosis or hydroureter. AORTA AND RETROPERITONEUM: No aneurysm. No retroperitoneal masses or adenopathy. BOWEL AND PERITONEAL CAVITY: No obvious masses or inflammatory changes. No free fluid. APPENDIX: Surgically absent. PELVIS, BLADDER, AND ABDOMINAL WALL:Small or right-sided lipoma is again noted. No significant herni as. BONES: No significant findings. OTHER: No other significant finding. IMPRESSION: NO SIGNIFICANT OR ACUTE PROCESS IN THE ABDOMEN OR PELVIS. COMMENT: Quality ID # [id number]: Final reports with documentation of one or more dose reduction techniques (e.g., Automated exposure control, adjustment of the mA and/or kV according to patient size, use of iterative reconstruction technique) TECHNICAL DOCUMENTATION: JOB ID: [id number] [email or web address]- All Rights Reserved Reading location - IP/workstation name: [email or web address]
--- NOTE | 2018-01-11 19:34 | ER Document Report ---
ED GI/ - General Chief Complaint: Nausea/Vomiting/Diarrhea Stated Complaint: VOMITING Time Seen by Provider: 01/11/18 13:26 Mode of Arrival: Ambulatory Information source: Patient, Relative Notes: Patient is a 57-year-old obese female comes to emergency room complaining of 2- day onset of nausea vomiting diarrhea. Patient also has complaint of multiple skin lesions and is excoriating herself with the itching. Patient states she started 2 days ago having vomiting and unable to keep any food down. She is a insulin-dependent diabetic and is really fixated on her skin condition. She states that she is been told that she has a yeast infection in her skin. She is seeing wound car deliverer locally and is due to see another car deliverer for biopsy sometime next week. Her diarrhea she states is been 5 stools it is soft. And has been last 2 days. She has a history of pheochromocytoma. She has complains of just some mild abdominal discomfort. TRAVEL OUTSIDE OF THE [place] IN LAST 30 DAYS: No - HPI Patient complains to provider of: Abdominal pain, Diarrhea, Vomiting Onset: Other - 2 days Timing/Duration: Gradual, Persistent, Worse Quality of pain: Achy Severity at maximum: Moderate Severity in ED: Moderate Pain Level: 3 Location: Other - Diffuse abdominal discomfort Vaginal bleeding (Compared to normal period): None Menstrual period history: Post-menopausal Sexual history: Inactive Associated symptoms: Diarrhea, Vomiting Exacerbated by: Food Relieved by: Denies Similar symptoms previously: Yes Recently seen / treated by doctor: Yes - Related Data Allergies/Adverse Reactions: labetalol [Labetalol] Allergy (Severe, Verified 01/11/18 12:48) swelling, sob Penicillins Allergy (Severe, Verified 01/11/18 12:48) itching duloxetine Allergy (Verified 01/11/18 12:48) latex Allergy (Verified 01/11/18 12:48) linagliptin [From Tradjenta] Allergy (Verified 01/11/18 12:48) terbinafine Allergy (Verified 01/11/18 12:48) Liraglutide [From Victoza] Adverse Reaction (Verified 01/11/18 12:48) nausea/vomitting Past Medical History - General Information source: Patient - Social History Smoking Status: Never Smoker Cigarette use (# per day): No Chew tobacco use (# tins/day): No Smoking Education Provided: No Frequency of alcohol use: None Drug Abuse: None Lives with: Family Family History: Reviewed & Not Pertinent Patient has suicidal ideation: No Patient has homicidal ideation: No - Past Medical History Cardiac Medical History: Reports: Hx Congestive Heart Failure, Hx Coronary Artery Disease, Hx Heart Attack - 2008, Hx Hypercholesterolemia, Hx Hypertension Pulmonary Medical History: Reports: Hx Sleep Apnea - On CPap Denies: Hx Asthma, Hx Bronchitis, Hx COPD, Hx Pneumonia Neurological Medical History: Reports: Hx Cerebrovascular Accident. Denies: Hx Seizures Endocrine Medical History: Reports: Hx Diabetes Mellitus Type 1, Hx Diabetes Mellitus Type 2, Hx Hypothyroidism Renal/ Medical History: Reports: Hx End Stage Renal Disease. Denies: Hx Peritoneal Dialysis Musculoskeletal Medical History: Reports Hx Arthritis, Reports Hx Gout Psychiatric Medical History: Reports: Hx Depression Past Surgical History: Reports: Hx Appendectomy, Hx Section, Hx Cholecystectomy, Hx Hysterectomy, Hx Orthopedic Surgery - cancer removed from back, Other - parathyroidectomy, 3-1/2 glands removed on 01/13/2016; right adrenalectomy - Immunizations Hx Diphtheria, Pertussis, Tetanus Vaccination: Yes Hx Pneumococcal Vaccination: 02/18/15 Review of Systems - Review of Systems Constitutional: No symptoms reported EENT: No symptoms reported Cardiovascular: No symptoms reported Respiratory: No symptoms reported Gastrointestinal: See HPI, Abdominal pain, Diarrhea, Vomiting, Poor appetite Genitourinary: No symptoms reported Female Genitourinary: No symptoms reported Musculoskeletal: No symptoms reported Skin: See HPI, Lesions Hematologic/Lymphatic: No symptoms reported Neurological/Psychological: No symptoms reported -: Yes All other systems reviewed and negative Physical Exam - Vital signs Vitals: Temp Pulse Resp BP Pulse Ox 97.9 F 94 16 150/84 H 97 01/11/18 13:04 01/11/18 13:04 01/11/18 13:04 01/11/18 13:04 01/11/18 13:04 Interpretation: Hypertensive - Notes Notes: PHYSICAL EXAMINATION: GENERAL: Patient is a well-nourished well-developed obese 57-year-old female who is in no apparent distress at time of physical exam. She is however somewhat fixated on her skin condition with her pruritus. She is so focused on her lesions that she cannot think of anything else but that. She is unable to concentrate about her diabetes because of the pruritus. HEAD: Atraumatic, normocephalic. EYES: Pupils equal round and reactive to light, extraocular movements intact, conjunctiva are normal. ENT: Nares patent, oropharynx clear without exudates. Moist mucous membranes. NECK: Normal range of motion, supple without lymphadenopathy LUNGS: Breath sounds clear to auscultation bilaterally and equal. No wheezes rales or rhonchi. HEART: Regular rate and rhythm without murmurs ABDOMEN: Examination of the abdomen shows he has bowel sounds in all 4 quads. She has diffuse tenderness across all quads but no specific focal area. Female : deferred Musculoskeletal: Normal range of motion, no pitting or edema. No cyanosis. NEUROLOGICAL: Normal speech, normal gait. Normal sensory, motor exams PSYCH: Normal mood, normal affect. SKIN: Warm, Dry, patient has multiple lesions across her upper extremities and chest abdomen back and lower extremities. These lesions are darkened areas that appear somewhat hyperpigmented slightly raised. There are several within reaching distance where she has excoriated them and they have turned somewhat into keloid. No signs of infection at this time. Course - Re-evaluation Re-evalutation: 01/12/18 07:15 Patient is a dialysis patient she is also a diabetic patient uses insulin and Lantus. She is in the middle of changing her he seems just put on Humalog and she is adjusting it accordingly. Patient's labs are basically baseline for her her creatinine is 7 potassium is 4.7. Her alk phos is elevated but is been elevated for many years now. I had a long discussion with patient and family. Patient is due for tomorrow morning and since we are getting her blood sugars under control the best option for her at this point is to return home and keep her dialysis appointment. I have informed her that even if I wanted to admit her or she had reason to be admitted we would have to ship her because there are no beds in the hospital for dialysis are full. Patient stayed in the emergency room was uneventful her sugars were starting at 586 coming down in the mid 400s and patient has not vomited or had diarrhea since being here. We did give her a small bolus of fluids and she seemed to respond well to that so with her not being in a ketoacidosis her VBG was pH of 7.32 and she was feeling much better so we have decided that she can be discharged home and she understands that if she should get in any trouble she can return to the ER for further workup. Patient is very stable at this point in time and very hungry. She is not stated early on in our physical that she has not eaten in 2 days but has done nothing to talk about foods that she is been here we did give her oral trial of fluids and some crackers and she held those down with no problem and felt like she could go home and have a light diet. She will be watching her sugars much more closely. I did give her Valium 5 mg which seemed to decompress her fixation of the pruritus. She was able to relax and I believe this is part of the reason she is been throwing up as she is worried about the skin condition she has developed. It is highly important that she get to her car deliverer for further intervention and care of these lesions. 01/12/18 07:16 - Vital Signs Vital signs: Temp Pulse Resp BP Pulse Ox 97.9 F 92 16 160/85 H 97 01/11/18 19:37 01/11/18 19:37 01/11/18 19:37 01/11/18 19:37 01/11/18 19:37 - Laboratory Result Diagrams: 01/11/18 14:06 01/11/18 14:06 Laboratory results interpreted by me: 01/11/18 01/11/18 01/11/18 14:06 14:06 15:40 MCH 26.3 L RDW 16.8 H Sodium 134.4 L Chloride 91 L BUN 29 H Creatinine 7.38 H Est GFR ( Amer) 7 L Est GFR (Non-Af Amer) 6 L Glucose 586 H* POC Glucose Calcium 7.9 L Direct Bilirubin 0.8 H Alkaline Phosphatase 237 H Ammonia < 8.7 L 01/11/18 01/11/18 01/11/18 16:47 17:41 19:34 MCH RDW Sodium Chloride BUN Creatinine Est GFR ( Amer) Est GFR (Non-Af Amer) Glucose POC Glucose 461 H* 469 H* 384 H Calcium Direct Bilirubin Alkaline Phosphatase Ammonia Discharge - Discharge Clinical Impression: Hyperglycemia, Anxiety, Pruritus Disposition: HOME, SELF-CARE Instructions: Antinausea Medication ([facility]), Reglan ([facility]), Vomiting ([facility]) Additional Instructions: As we discussed I believe part of the problem is your anxiety level is very high with the rash that you have going on. I think this part of it has started to affect your daily functional lifestyle. I truly believe you need to see the car deliverer as soon as possible and to go back and talk to Gato tomorrow and set up a plan for this. I explained to you earlier that I think your best course of action is discharged home since you are feeling much better because you need to go to dialysis first thing in the morning and the hospital here is not admitting any patients for dialysis because of the quantity they have been house already. Since you have had a p.o. trial and have kept the food down with no problem and because her sugars are starting to decline I believe it is safe to let you go home. If for any reason you have any concerns when you leave he can always come back for recheck. But it is important that you maintain tomorrow's appointment for your dialysis. Prescriptions: Diazepam 5 mg PO Q6 PRN #10 ml PRN Reason: Ondansetron [Zofran Odt 4 mg Tablet] 1 - 2 tab PO Q4H PRN #15 tab.rapdis PRN Reason: For Nausea/Vomiting Forms: Elevated Blood Pressure Referrals: ROBERTO SALDANA MD [Primary Care Provider] - Follow up as needed
[2018-01-11 19:45] VITALS: BP 160/85
== END 2018-01-11 19:56 | disposition home or self-care (01) ==
LOC: ER 12:43
DX: E11.65 Type 2 diabetes mellitus with hyperglycemia (principal); Z79.4 Long term (current) use of insulin; L29.9 Pruritus, unspecified; L98.9 Disorder of the skin and subcutaneous tissue, unspecified; F41.9 Anxiety disorder, unspecified; I12.0 Hypertensive chronic kidney disease with stage 5 chronic kidney disease or end stage renal disease; E11.22 Type 2 diabetes mellitus with diabetic chronic kidney disease; N18.6 End stage renal disease; Z99.2 Dependence on renal dialysis; R63.0 Anorexia; R74.8 Abnormal levels of other serum enzymes; R11.2 Nausea with vomiting, unspecified; R19.7 Diarrhea, unspecified; R10.84 Generalized abdominal pain; I25.10 Atherosclerotic heart disease of native coronary artery without angina pectoris; Z88.8 Allergy status to other drugs, medicaments and biological substances; Z88.0 Allergy status to penicillin; Z91.040 Latex allergy status; Z88.6 Allergy status to analgesic agent
CPT/HCPCS: 93005; 99285; 96361; 96374; 96375; 36415; 82962; 82140; 83605; 83690; 85025; 80053; 82803; 74022; 74176; 93010; J3360; A9270; J2405; J7040; J1815

== ENCOUNTER 2018-01-18 15:58 | Emergency (ER) | payer MEDICARE, MEDICAID ==
[2018-01-18] MEDS ORDERED: KETOROLAC TROMETHAMINE INJ/PF 30 MG/1 ML SDV IV ONE (16:41)
[2018-01-18] MEDS ORDERED: DICYCLOMINE HCL INJ 20 MG/2 ML AMPULE IM ONE (16:42)
--- NOTE | 2018-01-18 16:43 | ER Document Report ---
ED Medical Screen (RME) - General Chief Complaint: Nausea/Vomiting/Diarrhea Stated Complaint: CHEST PAIN,DIARRHEA,VOMITING Time Seen by Provider: 01/18/18 16:34 Notes: 58 years old female presents back again after being seen recently with belching nausea vomited a few times and still having loose bowel movement with abdominal cramps. TRAVEL OUTSIDE OF THE [place] IN LAST 30 DAYS: No - Related Data Allergies/Adverse Reactions: labetalol [Labetalol] Allergy (Severe, Verified 01/18/18 16:01) swelling, sob Penicillins Allergy (Severe, Verified 01/18/18 16:01) itching duloxetine Allergy (Verified 01/18/18 16:01) latex Allergy (Verified 01/18/18 16:01) linagliptin [From Tradjenta] Allergy (Verified 01/18/18 16:01) terbinafine Allergy (Verified 01/18/18 16:01) Liraglutide [From Victoza] Adverse Reaction (Verified 01/18/18 16:01) nausea/vomitting Past Medical History - Social History Frequency of alcohol use: None Drug Abuse: None - Past Medical History Cardiac Medical History: Reports: Hx Congestive Heart Failure, Hx Coronary Artery Disease, Hx Heart Attack - 2007, Hx Hypercholesterolemia, Hx Hypertension Pulmonary Medical History: Reports: Hx Sleep Apnea - On CPap Denies: Hx Asthma, Hx Bronchitis, Hx COPD, Hx Pneumonia Neurological Medical History: Reports: Hx Cerebrovascular Accident. Denies: Hx Seizures Endocrine Medical History: Reports: Hx Diabetes Mellitus Type 1, Hx Diabetes Mellitus Type 2, Hx Hypothyroidism Renal/ Medical History: Reports: Hx End Stage Renal Disease. Denies: Hx Peritoneal Dialysis - //TUE GI Medical History: Reports: Hx Gastroesophageal Reflux Disease Musculoskeltal Medical History: Reports Hx Arthritis, Reports Hx Gout Psychiatric Medical History: Reports: Hx Depression Past Surgical History: Reports: Hx Appendectomy, Hx Section, Hx Cholecystectomy, Hx Hysterectomy, Hx Orthopedic Surgery - cancer removed from back, Other - parathyroidectomy, 3-1/2 glands removed on 01/13/2016; right adrenalectomy - Immunizations Hx Diphtheria, Pertussis, Tetanus Vaccination: Yes History of Influenza Vaccine for 11/2016 - 04/2017 Season: Unknown Physical Exam - Vital signs Vitals: Temp Pulse Resp BP Pulse Ox 98.0 F 90 18 154/81 H 100 01/18/18 16:27 01/18/18 16:27 01/18/18 16:27 01/18/18 16:27 01/18/18 16:27 Course - Vital Signs Vital signs: Temp Pulse Resp BP Pulse Ox 98.0 F 90 18 154/81 H 100 01/18/18 16:27 01/18/18 16:27 01/18/18 16:27 01/18/18 16:27 01/18/18 16:27 Doctor's Discharge - Discharge Referrals: ROBERTO SALDANA MD [Primary Care Provider] - Follow up as needed
--- NOTE | 2018-01-18 17:29 | RADIOLOGY REPORT (SQ) ---
EXAM DESCRIPTION: KUB/ABDOMEN (SINGLE VIEW) COMPLETED DATE/TIME: 01/18/2018 4:58 pm REASON FOR STUDY: Abdominal pain COMPARISON: None. NUMBER OF VIEWS: One view. TECHNIQUE: Supine radiographic image of the abdomen acquired. LIMITATIONS: None. FINDINGS: BOWEL GAS PATTERN: Normal bowel gas pattern. No dilated loops. CALCIFICATIONS: No suspicious calcifications. SOFT TISSUES: No gross mass or suggestion of organomegaly. HARDWARE: None in the abdomen. BONES: No acute fracture. No worrisome bone lesions. OTHER: No other significant finding. IMPRESSION: NO RADIOGRAPHIC EVIDENCE FOR ACUTE ABDOMINAL DISEASE. TECHNICAL DOCUMENTATION: JOB ID: [id number] [employer]- All Rights Reserved Reading location - IP/workstation name: [email or web address]
[2018-01-18 17:41] LABS: ABSOLUTE BASOPHILS # (AUTO) 0.1 10^3/uL (0.0-0.2); ABSOLUTE MONOCYTES (AUTO) 0.8 10^3/uL (0.1-1.4); TOTAL CELLS COUNTED % (AUTO) 100 %
[2018-01-18 17:44] LABS: ABSOLUTE EOSINOPHILS # (AUTO) 0.8 10^3/uL (0.0-0.6); ABSOLUTE LYMPHOCYTES (AUTO) 2.3 10^3/uL (0.5-4.7); ABSOLUTE NEUT (AUTO) 5.6 10^3/uL (1.7-8.2); BASOPHILS % (AUTO) 1.2 % (0-2); EOSINOPHILS % (AUTO) 8.6 % (0-6); HEMATOCRIT 38.9 % (36.0-47.0); HEMOGLOBIN 12.6 g/dL (12.0-15.5); LYMPHOCYTES % (AUTO) 23.8 % (13-45); MEAN CORPUSCULAR HEMOGLOBIN 26.6 pg (27.0-33.4); MEAN CORPUSCULAR HGB CONC 32.5 g/dL (32.0-36.0); MEAN CORPUSCULAR VOLUME 82 fl (80-97); MONOCYTES % (AUTO) 8.8 % (3-13); PLATELET COUNT 234 10^3/uL (150-450); RED BLOOD COUNT 4.75 10^6/uL (3.72-5.28); SEGMENTED NEUTROPHILS % (AUTO) 57.6 % (42-78); WHITE BLOOD COUNT 9.6 10^3/uL (4.0-10.5)
--- NOTE | 2018-01-18 18:21 | ER Document Report ---
ED GI/ - General Chief Complaint: Nausea/Vomiting/Diarrhea Stated Complaint: CHEST PAIN,DIARRHEA,VOMITING Time Seen by Provider: 01/18/18 16:34 Mode of Arrival: Stretcher Information source: Patient Notes: Patient is a 58-year-old female with history of chronic renal failure on dialysis, diabetes, and chronic abdominal pain who presents with persistent and chronic abdominal pain with nausea and vomiting. Patient reports long history of abdominal pain of unknown etiology, also reports several episodes of nonbloody and nonbilious emesis over the past several days. Patient has had several visits to the emergency department, laboratory work and CT scans have shown no acute pathology other than intermittent hyperglycemia. Patient has followed up with her primary physician and has been referred to a humanities coordinator does not have an appointment. Patient is unsure of the nature of her symptoms and is "frustrated"she has not been provided an answer. TRAVEL OUTSIDE OF THE [place] IN LAST 30 DAYS: No - HPI Patient complains to provider of: Abdominal pain, Vomiting Onset: Other - Chronic Timing/Duration: Persistent Quality of pain: Achy, Fullness. denies: Stabbing Severity at maximum: Moderate Severity in ED: Mild Pain Level: 2 Location: Other - Diffuse abdomen Vaginal bleeding (Compared to normal period): None Sexual history: Inactive Associated symptoms: Diarrhea, Nausea. denies: Fever, Hematuria Exacerbated by: Food Relieved by: Denies Similar symptoms previously: Yes Recently seen / treated by doctor: Yes - Related Data Allergies/Adverse Reactions: labetalol [Labetalol] Allergy (Severe, Verified 01/18/18 16:01) swelling, sob Penicillins Allergy (Severe, Verified 01/18/18 16:01) itching duloxetine Allergy (Verified 01/18/18 16:01) latex Allergy (Verified 01/18/18 16:01) linagliptin [From Tradjenta] Allergy (Verified 01/18/18 16:01) terbinafine Allergy (Verified 01/18/18 16:01) Liraglutide [From Victoza] Adverse Reaction (Verified 01/18/18 16:01) nausea/vomitting Past Medical History - General Information source: Patient - Social History Smoking Status: Never Smoker Cigarette use (# per day): No Chew tobacco use (# tins/day): No Frequency of alcohol use: None Drug Abuse: None Lives with: Alone Family History: Reviewed & Not Pertinent Patient has suicidal ideation: No Patient has homicidal ideation: No - Past Medical History Cardiac Medical History: Reports: Hx Congestive Heart Failure, Hx Coronary Artery Disease, Hx Heart Attack - 2008, Hx Hypercholesterolemia, Hx Hypertension Pulmonary Medical History: Reports: Hx Sleep Apnea - On CPap Denies: Hx Asthma, Hx Bronchitis, Hx COPD, Hx Pneumonia EENT Medical History: Reports: None Neurological Medical History: Reports: Hx Cerebrovascular Accident. Denies: Hx Seizures Endocrine Medical History: Reports: Hx Diabetes Mellitus Type 1, Hx Diabetes Mellitus Type 2, Hx Hypothyroidism Renal/ Medical History: Reports: Hx End Stage Renal Disease. Denies: Hx Peritoneal Dialysis - T/TH/SAT Malignancy Medical History: Reports: None GI Medical History: Reports: Hx Gastroesophageal Reflux Disease Musculoskeletal Medical History: Reports Hx Arthritis, Reports Hx Gout Skin Medical History: Reports None Psychiatric Medical History: Reports: Hx Depression Traumatic Medical History: Reports: None Infectious Medical History: Reports: None Past Surgical History: Reports: Hx Appendectomy, Hx Section, Hx Cholecystectomy, Hx Hysterectomy, Hx Orthopedic Surgery - cancer removed from back, Other - parathyroidectomy, 3-1/2 glands removed on 01/13/2016; right adrenalectomy - Immunizations Hx Diphtheria, Pertussis, Tetanus Vaccination: Yes Hx Pneumococcal Vaccination: 02/18/15 Review of Systems - Review of Systems -: Yes ROS unobtainable due to patient's medical condition Constitutional: No symptoms reported. denies: Fever, Malaise EENT: No symptoms reported Cardiovascular: No symptoms reported Respiratory: No symptoms reported Gastrointestinal: Abdominal pain, Diarrhea, Nausea, Vomiting, Poor appetite. denies: Blood streaked bowels, Blood in vomit, Black stools Genitourinary: No symptoms reported Female Genitourinary: No symptoms reported Musculoskeletal: No symptoms reported Skin: No symptoms reported Hematologic/Lymphatic: No symptoms reported Neurological/Psychological: No symptoms reported -: Yes All other systems reviewed and negative Physical Exam - Vital signs Vitals: Temp Pulse Resp BP Pulse Ox 98.0 F 90 18 154/81 H 100 01/18/18 16:27 01/18/18 16:27 01/18/18 16:27 01/18/18 16:27 01/18/18 16:27 Interpretation: Normal - General General appearance: Appears well, Alert In distress: None - HEENT Head: Normocephalic, Atraumatic Eyes: Normal Pupils: PERRL - Respiratory Respiratory status: No respiratory distress Chest status: Nontender Breath sounds: Normal Chest palpation: Normal - Cardiovascular Rhythm: Regular Heart sounds: Normal auscultation Murmur: No - Abdominal Inspection: Normal Distension: No distension Bowel sounds: Normal Tenderness: Tender - Mild diffuse tenderness. No: Guarding, Rebound Organomegaly: No organomegaly - Rectal Tenderness: No - Deferred - Genitourinary Notes: Deferred - Back Back: Normal, Nontender - Extremities General upper extremity: Normal inspection, Nontender, Normal color, Normal ROM , Normal temperature General lower extremity: Normal inspection, Nontender, Normal color, Normal ROM , Normal temperature, Normal weight bearing. No: Onur's sign - Neurological Neuro grossly intact: Yes Cognition: Normal Orientation: AAOx4 Carolyn Coma Scale Eye Opening: Spontaneous Hansen Coma Scale Verbal: Oriented Hansen Coma Scale Motor: Obeys Commands Carolyn Coma Scale Total: 15 Speech: Normal Motor strength normal: LUE, RUE, LLE, RLE Sensory: Normal - Psychological Associated symptoms: Normal affect, Normal mood - Skin Skin Temperature: Warm Skin Moisture: Dry Skin Color: Normal Course - Re-evaluation Re-evalutation: 01/18/18 19:23 Plan is to medically clear the patient with blood work, give IV metoclopramide, and reassess after oral challenge for discharge. 01/18/18 20:30 Blood work is grossly unremarkable and at the baseline for the patient. She has had mild improvement after the IV Reglan. She will be discharged home with return precautions and follow-up with both her primary physician as well as a humanities coordinator. The patient both understands and agrees with the plan. - Vital Signs Vital signs: Temp Pulse Resp BP Pulse Ox 98.0 F 90 21 H 158/82 H 97 01/18/18 16:27 01/18/18 16:27 01/18/18 19:02 01/18/18 19:02 01/18/18 19:02 - Laboratory Result Diagrams: 01/18/18 17:09 01/18/18 18:12 Laboratory results interpreted by me: 01/18/18 01/18/18 17:09 18:12 MCH 26.6 L RDW 17.0 H Eosinophils % 8.6 H Absolute Eosinophils 0.8 H Chloride 94 L BUN 24 H Creatinine 6.20 H Est GFR ( Amer) 8 L Est GFR (Non-Af Amer) 7 L Glucose 284 H Calcium 8.2 L - Diagnostic Test Radiology reviewed: Reports reviewed - EKG Interpretation by Me EKG shows normal: Sinus rhythm Rate: Normal Rhythm: NSR [place]/QRS: No: LBBB P Waves: No: BUDDY, LAE, Absent, AV Dissociation, Other Heart block present: No: 1st Degree, Mobitz 1, Mobitz 2, CHB (3rd degree block) When compared to previous EKG there are: No significant change Discharge - Discharge Clinical Impression: Chronic abdominal pain, Chronic nausea Condition: Good Disposition: HOME, SELF-CARE Instructions: Abdominal Pain ([facility]), Antinausea Medication ([facility]) Additional Instructions: Please follow-up with both your primary physician and gastroenterology as soon as possible. Return to the emergency department if you experience worsening abdominal pain, chest pain, shortness of breath, or any other concerning symptom. Prescriptions: Metoclopramide HCl [Reglan 10 mg Tablet] 10 mg PO Q8H PRN 10 Days #30 tablet PRN Reason: For Nausea/Vomiting Referrals: ROBERTO SALDANA MD [Primary Care Provider] - Follow up as needed Print Language: [place]ib[place]ian
[2018-01-18 18:51] LABS: ANION GAP 15 (5-19); BLOOD UREA NITROGEN 24 mg/dL (7-20); CALCIUM 8.2 mg/dL (8.4-10.2); CARBON DIOXIDE 29 mmol/L (22-30); CHLORIDE 94 mmol/L (98-107); GLUCOSE 284 mg/dL (75-110); POTASSIUM 4.3 mmol/L (3.6-5.0); SODIUM 137.9 mmol/L (137-145)
[2018-01-18] MEDS ORDERED: METOCLOPRAMIDE HCL INJ/PF 10 MG/2 ML SDV IV ONE (19:09)
[2018-01-18 19:31] VITALS: BP 158/82
--- NOTE | 2018-01-19 09:35 | EKG REPORT ---
SEVERITY:- ABNORMAL ECG - SINUS RHYTHM LEFT ATRIAL ABNORMALITY BORDERLINE LEFT AXIS DEVIATION BORDERLINE PROLONGED QT INTERVAL : Confirmed by: Lexii Thorne 19-Jan-2018 09:33:25
== END 2018-01-18 21:06 | disposition home or self-care (01) ==
LOC: ER 15:58
DX: R11.2 Nausea with vomiting, unspecified (principal); R10.84 Generalized abdominal pain; G89.29 Other chronic pain; R19.7 Diarrhea, unspecified; R63.0 Anorexia; I12.0 Hypertensive chronic kidney disease with stage 5 chronic kidney disease or end stage renal disease; E11.22 Type 2 diabetes mellitus with diabetic chronic kidney disease; N18.6 End stage renal disease; Z99.2 Dependence on renal dialysis; I25.10 Atherosclerotic heart disease of native coronary artery without angina pectoris; Z88.8 Allergy status to other drugs, medicaments and biological substances; Z88.0 Allergy status to penicillin; Z88.6 Allergy status to analgesic agent; Z88.3 Allergy status to other anti-infective agents; Z91.040 Latex allergy status; Z87.19 Personal history of other diseases of the digestive system; Z90.49 Acquired absence of other specified parts of digestive tract; Z90.710 Acquired absence of both cervix and uterus
CPT/HCPCS: 93005; 99284; 96372; 96374; 96375; 36415; 85025; 80048; 74018; 93010; J0500; J1885; J2765

== ENCOUNTER 2018-01-28 21:52 | Emergency (ER) | payer MEDICARE, MEDICAID ==
[2018-01-28] MEDS ORDERED: HALOPERIDOL LACTATE INJ 5 MG/1 ML VIAL IV ONE (22:12)
[2018-01-28 22:29] LABS: HEMATOCRIT 39.5 % (36.0-47.0); HEMOGLOBIN 12.7 g/dL (12.0-15.5); MEAN CORPUSCULAR HEMOGLOBIN 26.5 pg (27.0-33.4); MEAN CORPUSCULAR HGB CONC 32.2 g/dL (32.0-36.0); MEAN CORPUSCULAR VOLUME 82 fl (80-97); PLATELET COUNT 218 10^3/uL (150-450); RED CELL DISTRIBUTION WIDTH 17.3 % (11.5-14.0); WHITE BLOOD COUNT 10.3 10^3/uL (4.0-10.5)
[2018-01-28 22:47] LABS: ALANINE AMINOTRANSFERASE 27 U/L (9-52); ALBUMIN 4.2 g/dL (3.5-5.0); ALKALINE PHOSPHATASE 267 U/L (38-126); ANION GAP 14 (5-19); ASPARTATE AMINO TRANSFERASE 34 U/L (14-36); BILIRUBIN,DIRECT 0.6 mg/dL (0.0-0.4); BILIRUBIN,TOTAL 1.5 mg/dL (0.2-1.3); BLOOD UREA NITROGEN 12 mg/dL (7-20); CALCIUM 8.8 mg/dL (8.4-10.2); CARBON DIOXIDE 28 mmol/L (22-30); CHLORIDE 95 mmol/L (98-107); GLUCOSE 349 mg/dL (75-110); LIPASE 48.5 U/L (23-300); POTASSIUM 4.5 mmol/L (3.6-5.0); SODIUM 137.2 mmol/L (137-145); TOTAL PROTEIN 8.1 g/dL (6.3-8.2)
--- NOTE | 2018-01-28 23:19 | ER Document Report ---
ED General - General Chief Complaint: Nausea/Vomiting Stated Complaint: VOMITING Time Seen by Provider: 01/28/18 22:02 Notes: Patient is a 58-year-old female with a past medical history of hypertension, hyperlipidemia, diabetes with poor glycemic control who presents with recurrent nausea, vomiting and abdominal cramping. Patient states that for the past 1 month she has had intermittent episodes of severe generalized abdominal pain as well as nausea and vomiting. She has been seen in the emergency department on multiple occasions for this issue and has also follow-up with her primary care doctor. A CT scan of the abdomen pelvis has been completed which was noted to be normal. She is scheduled to follow-up with GI for colonoscopy and endoscopy. The patient states that nothing seems to improve or worsen her symptoms. She denies any fever or constitutional symptoms. She denies anything it is new or different or worse about her symptoms tonight that prompted a visit to the emergency department. No chest pain or shortness of breath. TRAVEL OUTSIDE OF THE [place] IN LAST 30 DAYS: No - Related Data Allergies/Adverse Reactions: labetalol [Labetalol] Allergy (Severe, Verified 01/18/18 16:01) swelling, sob Penicillins Allergy (Severe, Verified 01/18/18 16:01) itching duloxetine Allergy (Verified 01/18/18 16:01) latex Allergy (Verified 01/18/18 16:01) linagliptin [From Tradjenta] Allergy (Verified 01/18/18 16:01) terbinafine Allergy (Verified 01/18/18 16:01) Liraglutide [From Victoza] Adverse Reaction (Verified 01/18/18 16:01) nausea/vomitting Past Medical History - General Information source: Patient, Relative - Social History Smoking Status: Never Smoker Frequency of alcohol use: None Drug Abuse: None Lives with: Family Family History: Reviewed & Not Pertinent Patient has suicidal ideation: No Patient has homicidal ideation: No - Past Medical History Cardiac Medical History: Reports: Hx Congestive Heart Failure, Hx Coronary Artery Disease, Hx Heart Attack - 2007, Hx Hypercholesterolemia, Hx Hypertension Pulmonary Medical History: Reports: Hx Sleep Apnea - On CPap Denies: Hx Asthma, Hx Bronchitis, Hx COPD, Hx Pneumonia Neurological Medical History: Reports: Hx Cerebrovascular Accident. Denies: Hx Seizures Endocrine Medical History: Reports: Hx Diabetes Mellitus Type 1, Hx Diabetes Mellitus Type 2, Hx Hypothyroidism Renal/ Medical History: Reports: Hx End Stage Renal Disease. 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 HENT: Negative for sore throat. Eyes: Negative for visual changes. Cardiovascular: Negative for chest pain. Respiratory: Negative for shortness of breath. Gastrointestinal: Positive for abdominal pain and vomiting Genitourinary: Negative for dysuria. Musculoskeletal: Negative for back pain. Skin: Negative for rash. Neurological: Negative for headaches, weakness or numbness. 10 point ROS negative except as marked above and in HPI. Physical Exam - Vital signs Vitals: Temp Pulse Resp BP Pulse Ox 98.0 F 100 18 170/90 H 100 01/28/18 22:01 01/28/18 22:01 01/28/18 22:01 01/28/18 22:01 01/28/18 22:01 Interpretation: Hypertensive Notes: PHYSICAL EXAMINATION: GENERAL: Appears moderately uncomfortable but in no acute distress HEAD: Atraumatic, normocephalic. EYES: Pupils equal round and reactive to light, extraocular movements intact, sclera anicteric, conjunctiva are normal. ENT: nares patent, oropharynx clear without exudates. Moderately dry mucous membranes. NECK: Normal range of motion, supple without lymphadenopathy LUNGS: Breath sounds clear to auscultation bilaterally and equal. No wheezes rales or rhonchi. HEART: Regular rate and rhythm without murmurs ABDOMEN: Soft, nontender, normoactive bowel sounds. No guarding, no rebound. No masses appreciated. EXTREMITIES: Normal range of motion, no pitting or edema. No cyanosis. NEUROLOGICAL: No focal neurological deficits. Moves all extremities spontaneously and on command. PSYCH: Normal mood, normal affect. SKIN: Warm, Dry, normal turgor, no rashes or lesions noted. Course - Re-evaluation Re-evalutation: 01/28/18 23:18 Patient presents with chronic, recurrent generalized abdominal cramping with associated nausea and vomiting. The patient has been seen in the emergency department on 3 separate occasions in the past 1 month for the same complaint. She has had a CT scan of her abdomen and pelvis as well as a KUB which have been unremarkable. Labs consistent with show findings consistent with chronic kidney disease but are otherwise unremarkable. Labs today again are unchanged from previous with normal LFTs, normal lipase, no leukocytosis. She has no focal abdominal tenderness on exam. The patient did receive 3 mg of IV haloperidol for a presumptive diagnosis of diabetic gastric paresis that she has consistently extremely uncontrolled blood glucose levels North of 300 today. She has a known history of diabetic peripheral neuropathy. This did completely resolve her abdominal pain as well as her nausea and vomiting. She did have some mild sedation and was monitored until this is improved. She was able to tolerate oral intake without any difficulty and had no pain at time of secondary assessment. At this time will discharge with return precautions and follow-up recommendations. Verbal discharge instructions given a the bedside and opportunity for questions given. Medication warnings reviewed. Patient is in agreement with this plan and has verbalized understanding of return precautions and the need for primary care follow-up in the next 24-72 hours. - Vital Signs Vital signs: Temp Pulse Resp BP Pulse Ox 98.1 F 100 11 L 160/80 H 91 L 01/29/18 01:00 01/28/18 22:01 01/29/18 01:00 01/29/18 01:00 01/29/18 01:00 - Laboratory Result Diagrams: 01/28/18 22:22 01/28/18 22:22 Laboratory results interpreted by me: 01/28/18 01/28/18 22:22 22:22 MCH 26.5 L RDW 17.3 H Chloride 95 L Creatinine 4.36 H Est GFR ( Amer) 13 L Est GFR (Non-Af Amer) 10 L Glucose 349 H Total Bilirubin 1.5 H Direct Bilirubin 0.6 H Alkaline Phosphatase 267 H Discharge - Discharge Clinical Impression: Chronic abdominal pain, Diabetic gastroparesis Nausea and vomiting Qualifiers: Vomiting type: unspecified Vomiting Intractability: non-intractable Qualified Code(s): R11.2 - Nausea with vomiting, unspecified Condition: Good Disposition: HOME, SELF-CARE Additional Instructions: Please follow-up closely with your primary care doctor as you likely need referral to endocrinology given your chronically uncontrolled blood sugars. This is likely inducing a syndrome called diabetic gastroparesis which results in chronic abdominal pain and recurrent vomiting. It is critical that you get your blood sugars under better control to prevent further progression of this illness. Your symptoms are treated tonight with IV haloperidol which has been shown to improve he will symptoms when they have diabetic gastroparesis. Return if you develop worsening of your abdominal pain, fever greater than 100.4 F, become unable to tolerate fluids, or have any other symptoms that are worrisome to you. Referrals: ROBERTO SALDANA MD [Primary Care Provider] - Follow up in 3-5 days
[2018-01-29 01:35] VITALS: BP 160/80
== END 2018-01-29 01:36 | disposition home or self-care (01) ==
LOC: ER 21:52
DX: G89.29 Other chronic pain (principal); R10.9 Unspecified abdominal pain; K31.84 Gastroparesis; E11.43 Type 2 diabetes mellitus with diabetic autonomic (poly)neuropathy; R11.2 Nausea with vomiting, unspecified; E78.5 Hyperlipidemia, unspecified; I50.9 Heart failure, unspecified; I25.10 Atherosclerotic heart disease of native coronary artery without angina pectoris; E78.00 Pure hypercholesterolemia, unspecified; I11.0 Hypertensive heart disease with heart failure; Z86.73 Personal history of transient ischemic attack (TIA), and cerebral infarction without residual deficits; E03.9 Hypothyroidism, unspecified; E11.22 Type 2 diabetes mellitus with diabetic chronic kidney disease; I13.2 Hypertensive heart and chronic kidney disease with heart failure and with stage 5 chronic kidney disease, or end stage renal disease; N18.6 End stage renal disease; K21.9 Gastro-esophageal reflux disease without esophagitis; I25.2 Old myocardial infarction; Z91.040 Latex allergy status; Z88.0 Allergy status to penicillin; Z90.49 Acquired absence of other specified parts of digestive tract; Z90.710 Acquired absence of both cervix and uterus
CPT/HCPCS: 99284; 96374; 36415; 83690; 85027; 80053; J1630

== ENCOUNTER 2018-01-30 13:52 | Inpatient (IN) | payer MEDICARE, MEDICAID ==
[2018-01-30] MEDS ORDERED: NORMAL SALINE 500 ML IV ONE (14:21)
[2018-01-30] MEDS ORDERED: DIPHENHYDRAMINE HCL 50 MG/ML VIAL IV ONE (14:44)
[2018-01-30] MEDS ORDERED: METOCLOPRAMIDE HCL INJ/PF 10 MG/2 ML SDV IV ONE (14:44)
[2018-01-30] MEDS ORDERED: HALOPERIDOL LACTATE INJ 5 MG/1 ML VIAL IV ONE (14:54)
--- NOTE | 2018-01-30 14:59 | ER Document Report ---
ED General - General Stated Complaint: VOMITING Time Seen by Provider: 01/30/18 14:19 TRAVEL OUTSIDE OF THE [place] IN LAST 30 DAYS: No - HPI Patient complains to provider of: Nausea vomiting Notes: Patient is a 58-year-old female with a past medical history of hypertension, hyperlipidemia, diabetes with poor glycemic control who presents with recurrent nausea, vomiting and abdominal cramping. Patient states that for the past 1 month she has had intermittent episodes of severe generalized abdominal pain as well as nausea and vomiting. She has been seen in the emergency department on multiple occasions for this issue and has also follow-up with her primary care doctor. A CT scan of the abdomen pelvis has been completed which was noted to be normal. She is scheduled to follow-up with GI for colonoscopy and endoscopy. The patient states that nothing seems to improve or worsen her symptoms. She denies any fever or constitutional symptoms. She denies anything it is new or different or worse about her symptoms tonight that prompted a visit to the emergency department. No chest pain or shortness of breath. Patient states no improvement with Reglan that was previous he prescribed. Patient last visit was given Haldol with resolution of her symptoms. Patient upon my evaluation repeats multiple times that she was the EMS will take her to [place] and asked me to transfer her to [place]. Explained to the patient briefly that she is here at [facility] we will is evaluate her no transfer criteria are met upon my initial evaluation. Patient unfortunately is in the hallway because of the status of the ER. Patient seen dry heaving mostly patient states diarrhea today. Patient states she is a Tuesday dialysis states compliant with her dialysis. - Related Data Allergies/Adverse Reactions: labetalol [Labetalol] Allergy (Severe, Verified 01/18/18 16:01) swelling, sob Penicillins Allergy (Severe, Verified 01/18/18 16:01) itching duloxetine Allergy (Verified 01/18/18 16:01) latex Allergy (Verified 01/18/18 16:01) linagliptin [From Tradjenta] Allergy (Verified 01/18/18 16:01) terbinafine Allergy (Verified 01/18/18 16:01) Liraglutide [From Victoza] Adverse Reaction (Verified 01/18/18 16:01) nausea/vomitting Past Medical History - Social History Smoking Status: Unknown if Ever Smoked Family History: Reviewed & Not Pertinent - Past Medical History Cardiac Medical History: Reports: Hx Congestive Heart Failure, Hx Coronary Artery Disease, Hx Heart Attack - 2008, Hx Hypercholesterolemia, Hx Hypertension Pulmonary Medical History: Reports: Hx Sleep Apnea - On CPap Denies: Hx Asthma, Hx Bronchitis, Hx COPD, Hx Pneumonia Neurological Medical History: Reports: Hx Cerebrovascular Accident. Denies: Hx Seizures Endocrine Medical History: Reports: Hx Diabetes Mellitus Type 1, Hx Diabetes Mellitus Type 2, Hx Hypothyroidism Renal/ Medical History: Reports: Hx End Stage Renal Disease. Denies: Hx Peritoneal Dialysis GI Medical History: Reports: Hx Gastroesophageal Reflux Disease Musculoskeletal Medical History: Reports Hx Arthritis, Reports Hx Gout Psychiatric Medical History: Reports: Hx Depression Past Surgical History: Reports: Hx Appendectomy, Hx Section, Hx Cholecystectomy, Hx Hysterectomy, Hx Orthopedic Surgery - cancer removed from back, Other - parathyroidectomy, 3-1/2 glands removed on 01/13/2016; right adrenalectomy - Immunizations Hx Diphtheria, Pertussis, Tetanus Vaccination: Yes Hx Pneumococcal Vaccination: 02/18/15 Review of Systems - Review of Systems Constitutional: No symptoms reported EENT: No symptoms reported Cardiovascular: No symptoms reported Respiratory: No symptoms reported Gastrointestinal: Abdominal pain, Diarrhea, Nausea, Vomiting Genitourinary: No symptoms reported Female Genitourinary: No symptoms reported Musculoskeletal: No symptoms reported Skin: No symptoms reported Hematologic/Lymphatic: No symptoms reported Neurological/Psychological: No symptoms reported -: Yes All other systems reviewed and negative Physical Exam - Vital signs Vitals: Temp Pulse Resp BP Pulse Ox 98.6 F 100 24 H 189/107 H 99 01/30/18 14:00 01/30/18 14:00 01/30/18 14:00 01/30/18 14:00 01/30/18 14:00 Interpretation: Normal - General General appearance: Appears well, Alert - HEENT Head: Normocephalic, Atraumatic Eyes: Normal Pupils: PERRL - Respiratory Respiratory status: No respiratory distress Chest status: Nontender Breath sounds: Normal Chest palpation: Normal - Cardiovascular Rhythm: Regular Heart sounds: Normal auscultation Murmur: No - Abdominal Inspection: Normal, Obese Distension: No distension Bowel sounds: Normal Tenderness: Nontender Organomegaly: No organomegaly - Back Back: Normal, Nontender - Extremities General upper extremity: Normal inspection, Nontender, Normal color, Normal ROM , Normal temperature, Other - AV fistula to the right arm with a palpable thrill General lower extremity: Normal inspection, Nontender, Normal color, Normal ROM , Normal temperature, Normal weight bearing. No: Onur's sign - Neurological Neuro grossly intact: Yes Cognition: Normal Orientation: AAOx4 [place] Coma Scale Eye Opening: Spontaneous Carolyn Coma Scale Verbal: Oriented [place] Coma Scale Motor: Obeys Commands [place] Coma Scale Total: 15 Speech: Normal Motor strength normal: LUE, RUE, LLE, RLE Sensory: Normal - Psychological Associated symptoms: Normal affect, Normal mood - Skin Skin Temperature: Warm Skin Moisture: Dry Skin Color: Normal Course - Re-evaluation Re-evalutation: 01/30/18 14:58 A brief [facility] the [facility] was performed 01/30/18 23:00 Laboratory studies not show any acute findings. Patient had no further vomiting or retching upon my reevaluation however discussed with family member stating that they are at wits in in dealing with the patient and request the patient to be admitted for further evaluation. Patient blood pressure is slightly elevated patient states she still does not think she can take her blood pressure medications. Did discuss the patient's case with her primary care physician Dr. Hoskins agrees to admit the patient to telemetry for further evaluation. More likely patient's underlying condition and gastroparesis causing her nausea vomiting will admit patient for further evaluation I discussed the patient's case also with Dr. Tompkins who agrees that patient will be monitored to see if she will need dialysis tomorrow or possibly Tuesday. - Vital Signs Vital signs: Temp Pulse Resp BP Pulse Ox 98.1 F 82 16 180/91 H 100 01/30/18 20:30 01/30/18 20:30 01/30/18 20:30 01/30/18 20:30 01/30/18 20:30 - Laboratory Result Diagrams: 01/30/18 15:08 01/30/18 15:08 Laboratory results interpreted by me: 01/30/18 01/30/18 15:08 15:08 WBC 10.6 H MCH 26.4 L RDW 17.9 H Chloride 97 L BUN 22 H Creatinine 7.13 H Est GFR ( Amer) 7 L Est GFR (Non-Af Amer) 6 L Glucose 242 H Total Bilirubin 1.4 H Direct Bilirubin 0.8 H AST 38 H Alkaline Phosphatase 268 H Discharge - Discharge Clinical Impression: End stage chronic kidney disease, Diabetic gastroparesis Nausea & vomiting Qualifiers: Vomiting type: unspecified Vomiting Intractability: unspecified Qualified Code( s): R11.2 - Nausea with vomiting, unspecified Condition: Good Disposition: ADMITTED OBSERVATION [facility] Telemetry
[2018-01-30 15:22] LABS: ABSOLUTE BASOPHILS # (AUTO) 0.2 10^3/uL (0.0-0.2); ABSOLUTE EOSINOPHILS # (AUTO) 0.1 10^3/uL (0.0-0.6); ABSOLUTE LYMPHOCYTES (AUTO) 1.8 10^3/uL (0.5-4.7); ABSOLUTE MONOCYTES (AUTO) 0.6 10^3/uL (0.1-1.4); BASOPHILS % (AUTO) 1.4 % (0-2); HEMATOCRIT 40.2 % (36.0-47.0); HEMOGLOBIN 12.9 g/dL (12.0-15.5); LYMPHOCYTES % (AUTO) 16.6 % (13-45); MEAN CORPUSCULAR HEMOGLOBIN 26.4 pg (27.0-33.4); MEAN CORPUSCULAR HGB CONC 32.1 g/dL (32.0-36.0); MEAN CORPUSCULAR VOLUME 82 fl (80-97); MONOCYTES % (AUTO) 5.7 % (3-13); PLATELET COUNT 226 10^3/uL (150-450); RED BLOOD COUNT 4.89 10^6/uL (3.72-5.28); RED CELL DISTRIBUTION WIDTH 17.9 % (11.5-14.0); SEGMENTED NEUTROPHILS % (AUTO) 75.3 % (42-78); TOTAL CELLS COUNTED % (AUTO) 100 %; WHITE BLOOD COUNT 10.6 10^3/uL (4.0-10.5)
--- NOTE | 2018-01-30 15:30 | RADIOLOGY REPORT (SQ) ---
EXAM DESCRIPTION: KUB/ABDOMEN (SINGLE VIEW) COMPLETED DATE/TIME: 01/30/2018 3:21 pm REASON FOR STUDY: n/v COMPARISON: KUB 01/18/2018, 01/11/2018, 12/16/2015 CT abdomen pelvis 01/11/2018 NUMBER OF VIEWS: One view. TECHNIQUE: Supine radiographic image of the abdomen acquired. LIMITATIONS: None. FINDINGS: BOWEL GAS PATTERN: Normal bowel gas pattern. No dilated loops. Grossly nonobstructive bow el gas pattern. CALCIFICATIONS: No suspicious calcifications. Arterial vascular calcifications in the pelvis. SOFT TISSUES: No gross mass or suggestion of organomegaly. HARDWARE: Clips right upper quadrant post cholecystectomy BONES: No acute fracture. No worrisome bone lesions. OTHER: No other significant finding. IMPRESSION: NO RADIOGRAPHIC EVIDENCE FOR ACUTE ABDOMINAL DISEASE. TECHNICAL DOCUMENTATION: JOB ID: [id number] [employer]- All Rights Reserved Reading location - IP/workstation name: [email or web address]
[2018-01-30 15:35] LABS: ALANINE AMINOTRANSFERASE 25 U/L (9-52); ALBUMIN 4.3 g/dL (3.5-5.0); ALKALINE PHOSPHATASE 268 U/L (38-126); ANION GAP 16 (5-19); ASPARTATE AMINO TRANSFERASE 38 U/L (14-36); BILIRUBIN,DIRECT 0.8 mg/dL (0.0-0.4); BILIRUBIN,TOTAL 1.4 mg/dL (0.2-1.3); BLOOD UREA NITROGEN 22 mg/dL (7-20); CALCIUM 8.9 mg/dL (8.4-10.2); CARBON DIOXIDE 26 mmol/L (22-30); CHLORIDE 97 mmol/L (98-107); GLUCOSE 242 mg/dL (75-110); LIPASE 41.5 U/L (23-300); POTASSIUM 4.1 mmol/L (3.6-5.0); SODIUM 138.9 mmol/L (137-145); TOTAL PROTEIN 7.9 g/dL (6.3-8.2)
--- NOTE | 2018-01-30 17:18 | ER Document Report ---
ED General - General Chief Complaint: Nausea/Vomiting Stated Complaint: VOMITING Time Seen by Provider: 01/30/18 14:19 TRAVEL OUTSIDE OF THE [place] IN LAST 30 DAYS: No - Related Data Allergies/Adverse Reactions: labetalol [Labetalol] Allergy (Severe, Verified 01/18/18 16:01) swelling, sob Penicillins Allergy (Severe, Verified 01/18/18 16:01) itching duloxetine Allergy (Verified 01/18/18 16:01) latex Allergy (Verified 01/18/18 16:01) linagliptin [From Tradjenta] Allergy (Verified 01/18/18 16:01) terbinafine Allergy (Verified 01/18/18 16:01) Liraglutide [From Victoza] Adverse Reaction (Verified 01/18/18 16:01) nausea/vomitting Past Medical History - Social History Family History: Reviewed & Not Pertinent - Past Medical History Cardiac Medical History: Reports: Hx Congestive Heart Failure, Hx Coronary Artery Disease, Hx Heart Attack - 2007, Hx Hypercholesterolemia, Hx Hypertension Pulmonary Medical History: Reports: Hx Sleep Apnea - On CPap Denies: Hx Asthma, Hx Bronchitis, Hx COPD, Hx Pneumonia Neurological Medical History: Reports: Hx Cerebrovascular Accident. Denies: Hx Seizures Endocrine Medical History: Reports: Hx Diabetes Mellitus Type 1, Hx Diabetes Mellitus Type 2, Hx Hypothyroidism Renal/ Medical History: Reports: Hx End Stage Renal Disease. Denies: Hx Peritoneal Dialysis GI Medical History: Reports: Hx Gastroesophageal Reflux Disease Musculoskeletal Medical History: Reports Hx Arthritis, Reports Hx Gout Psychiatric Medical History: Reports: Hx Depression Past Surgical History: Reports: Hx Appendectomy, Hx Section, Hx Cholecystectomy, Hx Hysterectomy, Hx Orthopedic Surgery - cancer removed from back, Other - parathyroidectomy, 3-1/2 glands removed on 01/13/2016; right adrenalectomy - Immunizations Hx Diphtheria, Pertussis, Tetanus Vaccination: Yes Hx Pneumococcal Vaccination: 02/18/15 Physical Exam - Vital signs Vitals: Temp Pulse Resp BP Pulse Ox 98.6 F 100 24 H 189/107 H 99 01/30/18 14:00 01/30/18 14:00 01/30/18 14:00 01/30/18 14:00 01/30/18 14:00 Course - Vital Signs Vital signs: Temp Pulse Resp BP Pulse Ox 97.2 F 109 H 20 204/102 H 100 01/30/18 14:16 01/30/18 14:16 01/30/18 14:16 01/30/18 14:16 01/30/18 14:16 - Laboratory Result Diagrams: 01/30/18 15:08 01/30/18 15:08 Laboratory results interpreted by me: 01/30/18 01/30/18 15:08 15:08 WBC 10.6 H MCH 26.4 L RDW 17.9 H Chloride 97 L BUN 22 H Creatinine 7.13 H Est GFR ( Amer) 7 L Est GFR (Non-Af Amer) 6 L Glucose 242 H Total Bilirubin 1.4 H Direct Bilirubin 0.8 H AST 38 H Alkaline Phosphatase 268 H Discharge - Discharge Clinical Impression: End stage chronic kidney disease, Diabetic gastroparesis Nausea & vomiting Qualifiers: Vomiting type: unspecified Vomiting Intractability: unspecified Qualified Code( s): R11.2 - Nausea with vomiting, unspecified Condition: Good Disposition: ADMITTED OBSERVATION Admitting Provider: [facility] Unit Admitted: Telemetry Referrals: ROBERTO SALDANA MD [Primary Care Provider] - Follow up as needed
[2018-01-30] MEDS ORDERED: (PENDING PHARMACY ID) (Amlodipine/Valsartan/Hcthiazid [Exforge Hct 10-320-25 Mg Tab] 1 EAC PO SCH (21:45)
[2018-01-30 22:32] LABS: INTERNATIONAL RATION (INR) 1.19; PROTHROMBIN TIME 15.8 SEC (11.4-15.4)
[2018-01-30 22:33] LABS: PARTIAL THROMBOPLASTIN TIME 22.5 SEC (23.5-35.8)
[2018-01-30 22:39] LABS: LIPASE 40.1 U/L (23-300); PHOSPHORUS 6.2 mg/dL (2.5-4.5)
[2018-01-30 22:53] LABS: CREATINE KINASE MB 0.76 ng/mL (<4.55); TROPONIN I 0.054 ng/mL
[2018-01-30 22:57] LABS: FREE T4 (FREE THYROXINE) 1.35 ng/dL (0.78-2.19)
[2018-01-30 23:11] LABS: THYROID STIMULATING HORMONE 2.55 uIU/mL (0.47-4.68)
[2018-01-30] MEDS: ONDANSETRON 4 MG TAB.RAPDIS PO PRN (23:11)
[2018-01-30] MEDS: METOPROLOL SUCCINATE 50 MG TAB.SR.24H PO SCH (23:12)
[2018-01-30] MEDS: HEPARIN SOD (PORCINE) 5,000 UNIT/ML 1 ML SYRINGE SUBCUT SCH (23:12)
[2018-01-31 02:31] LABS: ARTERIAL BLOOD BASE EXCESS -1.1 mmol/L; ARTERIAL BLOOD H2CO3 1.12 mmol/L (1.05-1.35); ARTERIAL BLOOD HCO3 23.2 mmol/L (20-24); ARTERIAL BLOOD O2 SATURATION 94.8 % (94-98); ARTERIAL BLOOD PCO2 37.3 mmHg (35-45); ARTERIAL BLOOD PH 7.41 (7.35-7.45); ARTERIAL BLOOD PO2 72.4 mmHg (80-100); ARTERIAL BLOOD TOTAL CO2 24.3 mmol/L (21-25)
[2018-01-31 02:32] LABS: ARTERIAL BLOOD FIO2 21%
[2018-01-31] MEDS: ONDANSETRON 4 MG TAB.RAPDIS PO PRN (04:43)
[2018-01-31 05:20] LABS: ABSOLUTE BASOPHILS # (AUTO) 0.1 10^3/uL (0.0-0.2); ABSOLUTE LYMPHOCYTES (AUTO) 1.9 10^3/uL (0.5-4.7); ABSOLUTE MONOCYTES (AUTO) 0.3 10^3/uL (0.1-1.4); ABSOLUTE NEUT (AUTO) 9.6 10^3/uL (1.7-8.2); BASOPHILS % (AUTO) 0.6 % (0-2); HEMATOCRIT 45.2 % (36.0-47.0); HEMOGLOBIN 14.5 g/dL (12.0-15.5); MEAN CORPUSCULAR HEMOGLOBIN 26.4 pg (27.0-33.4); MEAN CORPUSCULAR HGB CONC 32.1 g/dL (32.0-36.0); MEAN CORPUSCULAR VOLUME 82 fl (80-97); MONOCYTES % (AUTO) 2.8 % (3-13); PLATELET COUNT 230 10^3/uL (150-450); RED BLOOD COUNT 5.48 10^6/uL (3.72-5.28); SEGMENTED NEUTROPHILS % (AUTO) 80.6 % (42-78); TOTAL CELLS COUNTED % (AUTO) 100 %; WHITE BLOOD COUNT 11.9 10^3/uL (4.0-10.5)
[2018-01-31] MEDS: HEPARIN SOD (PORCINE) 5,000 UNIT/ML 1 ML SYRINGE SUBCUT SCH ×3 (05:25→23:07)
[2018-01-31 05:45] LABS: ALANINE AMINOTRANSFERASE 18 U/L (9-52); ALKALINE PHOSPHATASE 68 U/L (38-126); ASPARTATE AMINO TRANSFERASE 17 U/L (14-36); BILIRUBIN,DIRECT 0.2 mg/dL (0.0-0.4); BILIRUBIN,TOTAL 0.3 mg/dL (0.2-1.3); BLOOD UREA NITROGEN 36 mg/dL (7-20); CALCIUM 9.2 mg/dL (8.4-10.2); CHOLESTEROL 152.25 mg/dL (0-200); CREATINE KINASE 47 U/L (30-135); GLUCOSE 94 mg/dL (75-110); TOTAL PROTEIN 5.8 g/dL (6.3-8.2); TRIGLYCERIDES 217 mg/dL (<150)
[2018-01-31 05:50] LABS: CARBON DIOXIDE 33 mmol/L (22-30); CHLORIDE 107 mmol/L (98-107); SODIUM 142.8 mmol/L (137-145)
[2018-01-31 05:55] LABS: DIRECT LDL 59 mg/dL (<100); VLDL CHOLESTEROL 43.4 mg/dL (10-31)
[2018-01-31 05:56] LABS: ANION GAP 3 (5-19); CREATINE KINASE MB 0.96 ng/mL (<4.55); TROPONIN I 0.068 ng/mL
--- NOTE | 2018-01-31 11:49 | RADIOLOGY REPORT (SQ) ---
EXAM DESCRIPTION: NM GASTRIC EMPTYING STUDY COMPLETED DATE/TIME: 01/31/2018 11:39 am REASON FOR STUDY: persistent vomiting ?DM Gastroparesis E09.21 DRUG/CHEM DIABETES MELLITUS W DIABE TIC NEPHROPATHY I42.0 DILATED CARDIOMYOPATHY COMPARISON: None. RADIONUCLIDE AND DOSE: 1.9 millicuries Tc-99m Sulfur Colloid. Egg salad sandwich The route of agent administration: Oral. TECHNIQUE: Patient ate half of the egg salad sandwich before vomiting. Immediate and 2 hour delayed images of the abdomen were obtained LIMITATIONS: None. FINDINGS: Immediate images demonstrate a small amount of activity in the gastric antrum. 2 hour delay images demonstrate a small amount of activity in the gastric antrum IMPRESSION: No emptying of the administered activity from the stomach over 2 hours. TECHNICAL DOCUMENTATION: JOB ID: [id number] [employer]- All Rights Reserved rev Reading location - IP/workstation name: [email or web address]
[2018-01-31] MEDS: METOCLOPRAMIDE HCL INJ/PF 10 MG/2 ML SDV IV PRN ×2 (12:10→21:24)
[2018-01-31] MEDS: VALSARTAN 160 MG TABLET PO SCH (12:16)
[2018-01-31] MEDS: AMLODIPINE BESYLATE 10 MG TABLET PO SCH (12:26)
[2018-01-31] MEDS: METOPROLOL SUCCINATE 50 MG TAB.SR.24H PO SCH (12:26)
[2018-01-31] MEDS: HYDROCHLOROTHIAZIDE 25 MG TABLET PO SCH (12:26)
[2018-01-31 14:14] LABS: CREATINE KINASE MB 1.53 ng/mL (<4.55); TROPONIN I 0.079 ng/mL
[2018-01-31 18:51] LABS: ABSOLUTE LYMPHOCYTES (AUTO) 2.8 10^3/uL (0.5-4.7); ABSOLUTE MONOCYTES (AUTO) 1.5 10^3/uL (0.1-1.4); BASOPHILS % (AUTO) 0.2 % (0-2); EOSINOPHILS % (AUTO) 0.2 % (0-6); HEMATOCRIT 44.3 % (36.0-47.0); HEMOGLOBIN 13.8 g/dL (12.0-15.5); MEAN CORPUSCULAR HEMOGLOBIN 26.3 pg (27.0-33.4); MEAN CORPUSCULAR HGB CONC 31.2 g/dL (32.0-36.0); MEAN CORPUSCULAR VOLUME 84 fl (80-97); MONOCYTES % (AUTO) 8.2 % (3-13); PLATELET COUNT 155 10^3/uL (150-450); RED BLOOD COUNT 5.25 10^6/uL (3.72-5.28); RED CELL DISTRIBUTION WIDTH 18.6 % (11.5-14.0); SEGMENTED NEUTROPHILS % (AUTO) 76.4 % (42-78); TOTAL CELLS COUNTED % (AUTO) 100 %; WHITE BLOOD COUNT 18.3 10^3/uL (4.0-10.5)
[2018-01-31 19:11] LABS: ALANINE AMINOTRANSFERASE 76 U/L (9-52); ALBUMIN 4.3 g/dL (3.5-5.0); ALKALINE PHOSPHATASE 288 U/L (38-126); ASPARTATE AMINO TRANSFERASE 252 U/L (14-36); BILIRUBIN,DIRECT 2.9 mg/dL (0.0-0.4); BLOOD UREA NITROGEN 37 mg/dL (7-20); CALCIUM 8.8 mg/dL (8.4-10.2); CREATINE KINASE 58 U/L (30-135); GLUCOSE 113 mg/dL (75-110); TOTAL PROTEIN 8.2 g/dL (6.3-8.2)
[2018-01-31 19:22] LABS: CREATINE KINASE MB 1.59 ng/mL (<4.55); TROPONIN I 0.081 ng/mL
[2018-01-31 19:41] LABS: ANION GAP 27 (5-19); BILIRUBIN,TOTAL 4.3 mg/dL (0.2-1.3); CARBON DIOXIDE 17 mmol/L (22-30)
[2018-01-31 19:43] LABS: CHLORIDE 95 mmol/L (98-107); POTASSIUM 6.1 mmol/L (3.6-5.0)
[2018-01-31] MEDS ORDERED: SODIUM POLYSTYRENE SULFONATE 15 GM/60 ML PO ONE (20:16)
[2018-01-31] MEDS ORDERED: DEXTROSE 50%-WATER 25 GM/50 ML DISP.SYRIN IV ONE (21:52)
[2018-01-31] MEDS ORDERED: CALCIUM GLUCONATE 1000 MG/10 ML INJ IV ONE (21:52)
--- NOTE | 2018-01-31 21:52 | PDOC H&P ---
History of Present Illness Admission Date/PCP: 01/30/18 18:08 ROBERTO SALDANA MD History of Present Illness: MARIOLA GAR is a 58 year old female, She has end-stage renal disease on maintenance hemodialysis, diabetes mellitus complicated with severe neuropathy she came to the emergency room for evaluation of persistent vomiting, nausea, generalized body weakness ,pruritus and many other complaints. She was evaluated in the emergency room, it was felt that she needed to be admitted to the hospital for further evaluation of her symptoms. She probably have gastroparesis from autonomic neuropathy, gastric emptying test to be done in the morning. Past Medical History Cardiac Medical History: Reports: Congestive Heart Failure, Coronary Artery Disease, Myocardial Infarction - 2007, Hyperlipidema, Hypertension Pulmonary Medical History: Reports: Sleep Apnea - On CPap Neurological Medical History: Denies: Seizures Endocrine Medical History: Reports: Diabetes Mellitus Type 2, Obesity Renal/ Medical History: Reports: End Stage Renal Disease GI Medical History: Reports: Gastroesophageal Reflux Disease Musculoskeltal Medical History: Reports: Arthritis, Gout Psychiatric Medical History: Reports: Depression Hematology: Reports: Anemia Past Surgical History Past Surgical History: Reports: Appendectomy, Section, Cholecystectomy, Hysterectomy, Orthopedic Surgery - cancer removed from back, Other - parathyroidectomy, 3-1/2 glands removed on 01/13/2016; right adrenalectomy Social History Smoking Status: Never Smoker Frequency of Alcohol Use: None Hx Recreational Drug Use: No Drugs: None Hx Prescription Drug Abuse: No - Advance Directive Resuscitation Status: Full Code Family History Family History: Reviewed & Not Pertinent Parental Family History Reviewed: Yes Children Family History Reviewed: Yes Sibling(s) Family History Reviewed.: Yes Medication/Allergy Home Medications: Insulin Glargine,Hum.rec.anlog [Lantus Solostar] 10 unit SQ DAILY 12/13/17 Insulin Lispro [Humalog Insulin (Lispro) 100 unit/mL] 10 unit INJ TID 12/13/17 Midodrine HCl 10 mg PO ASDIR PRN 12/13/17 Nortriptyline HCl [Pamelor] 50 mg PO QHS 12/13/17 Tramadol HCl [Ultram 50 mg Tablet] 50 mg PO Q6HP PRN 12/13/17 Ondansetron [Zofran Odt 4 mg Tablet] 1 - 2 tab PO Q4H PRN #15 tab.rapdis 01/11/18 Metoclopramide HCl [Reglan 10 mg Tablet] 10 mg PO Q8H PRN 10 Days #30 tablet 01/18/18 Amitriptyline HCl [Elavil 75 Mg Tablet] 75 mg PO DAILY 01/31/18 Calcitriol [Rocaltrol] 2 tab PO DAILY 01/31/18 Clonazepam [Klonopin 1 mg Tablet] 1 mg PO BID 01/31/18 Diphenhydramine HCl [Benadryl] 50 mg PO Q4 01/31/18 Duloxetine HCl [Cymbalta] 60 mg PO DAILY 01/31/18 Gabapentin [Neurontin 300 mg Capsule] 300 mg PO Q8 01/31/18 Hydralazine HCl [Apresoline 25 mg Tablet] 25 mg PO TID 01/31/18 Ranitidine HCl [Acid Control] 150 mg PO BID 01/31/18 Allergies/Adverse Reactions: labetalol [Labetalol] Allergy (Severe, Verified 01/18/18 16:01) swelling, sob Penicillins Allergy (Severe, Verified 01/18/18 16:01) itching duloxetine Allergy (Verified 01/18/18 16:01) latex Allergy (Verified 01/18/18 16:01) linagliptin [From Tradjenta] Allergy (Verified 01/18/18 16:01) terbinafine Allergy (Verified 01/18/18 16:01) Liraglutide [From Victoza] Adverse Reaction (Verified 01/18/18 16:01) nausea/vomitting Review of Systems Constitutional: PRESENT: anorexia, fatigue, weakness Eyes: ABSENT: visual disturbances Ears: ABSENT: hearing changes Cardiovascular: ABSENT: chest pain Respiratory: ABSENT: cough, hemoptysis Gastrointestinal: PRESENT: bloating, nausea, vomiting Genitourinary: ABSENT: dysuria, hematuria Musculoskeletal: PRESENT: joint swelling Integumentary: ABSENT: rash, wounds Neurological: PRESENT: numbness, weakness Psychiatric: PRESENT: anxiety Endocrine: ABSENT: cold intolerance, heat intolerance, menstrual abnormalities, polydipsia, polyuria Physical Exam Vital Signs: Temp Pulse Resp BP Pulse Ox 94.6 F L 77 18 122/63 100 01/31/18 16:07 01/31/18 16:07 01/31/18 16:07 01/31/18 16:07 01/31/18 16:07 Intake & Output 01/30/18 01/31/18 02/01/18 06:59 06:59 06:59 Intake Total 0 320 Balance 0 320 Weight 106.8 kg General appearance: PRESENT: no acute distress Eye exam: PRESENT: PERRLA Respiratory exam: PRESENT: clear to auscultation charity Cardiovascular exam: PRESENT: +S1, +S2 GI/Abdominal exam: PRESENT: soft Neurological exam: PRESENT: alert Results Laboratory Results: 01/31/18 18:20 01/31/18 18:20 01/30/18 01/30/18 01/31/18 22:08 22:08 01:50 WBC RBC Hgb Hct MCV MCH MCHC RDW Plt Count Seg Neutrophils % Lymphocytes % Monocytes % Eosinophils % Basophils % Absolute Neutrophils Absolute Lymphocytes Absolute Monocytes Absolute Eosinophils Absolute Basophils Carbonic Acid 1.12 HCO3/H2CO3 Ratio 20:1 ABG pH 7.41 ABG pCO2 37.3 ABG pO2 72.4 L ABG HCO3 23.2 ABG O2 Saturation 94.8 ABG Base Excess -1.1 FiO2 21% Sodium Potassium Chloride Carbon Dioxide Anion Gap BUN Creatinine Est GFR ( Amer) Est GFR (Non-Af Amer) Glucose Calcium Phosphorus 6.2 H Magnesium 2.0 Total Bilirubin AST ALT Alkaline Phosphatase Total Protein Albumin Triglycerides Cholesterol LDL Cholesterol Direct VLDL Cholesterol HDL Cholesterol Amylase 50 Lipase 40.1 TSH 2.55 Free T4 1.35 01/31/18 01/31/18 01/31/18 04:27 04:27 13:17 WBC 11.9 H RBC 5.48 H Hgb 14.5 Hct 45.2 MCV 82 MCH 26.4 L MCHC 32.1 RDW 18.0 H Plt Count 230 Seg Neutrophils % 80.6 H Lymphocytes % 16.0 Monocytes % 2.8 L Eosinophils % 0.0 Basophils % 0.6 Absolute Neutrophils 9.6 H Absolute Lymphocytes 1.9 Absolute Monocytes 0.3 Absolute Eosinophils 0.0 Absolute Basophils 0.1 Carbonic Acid HCO3/H2CO3 Ratio ABG pH ABG pCO2 ABG pO2 ABG HCO3 ABG O2 Saturation ABG Base Excess FiO2 Sodium 142.8 Cancelled Potassium 4.0 Cancelled Chloride 107 Cancelled Carbon Dioxide 33 H Cancelled Anion Gap 3 L Cancelled BUN 36 H Cancelled Creatinine 1.28 H Cancelled Est GFR ( Amer) 51 L Cancelled Est GFR (Non-Af Amer) 43 L Cancelled Glucose 94 Cancelled Calcium 9.2 Cancelled Phosphorus Magnesium Total Bilirubin 0.3 AST 17 ALT 18 Alkaline Phosphatase 68 Total Protein 5.8 L Albumin 3.0 L Triglycerides 217 H Cholesterol 152.25 LDL Cholesterol Direct 59 VLDL Cholesterol 43.4 H HDL Cholesterol 61 Amylase Lipase TSH Free T4 01/31/18 01/31/18 01/31/18 14:52 18:20 18:20 WBC 18.3 H RBC 5.25 Hgb 13.8 Hct 44.3 MCV 84 MCH 26.3 L MCHC 31.2 L RDW 18.6 H Plt Count 155 Seg Neutrophils % 76.4 Lymphocytes % 15.0 Monocytes % 8.2 Eosinophils % 0.2 Basophils % 0.2 Absolute Neutrophils 14.0 H Absolute Lymphocytes 2.8 Absolute Monocytes 1.5 H Absolute Eosinophils 0.0 Absolute Basophils 0.0 Carbonic Acid HCO3/H2CO3 Ratio ABG pH ABG pCO2 ABG pO2 ABG HCO3 ABG O2 Saturation ABG Base Excess FiO2 Sodium Cancelled 139.0 Potassium Cancelled 6.1 H* D Chloride Cancelled 95 L Carbon Dioxide Cancelled 17 L D Anion Gap Cancelled 27 H BUN Cancelled 37 H Creatinine Cancelled 8.67 H Est GFR ( Amer) Cancelled 6 L Est GFR (Non-Af Amer) Cancelled 5 L Glucose Cancelled 113 H Calcium Cancelled 8.8 Phosphorus Magnesium Total Bilirubin 4.3 H D AST 252 H ALT 76 H Alkaline Phosphatase 288 H Total Protein 8.2 Albumin 4.3 Triglycerides Cholesterol LDL Cholesterol Direct VLDL Cholesterol HDL Cholesterol Amylase Lipase TSH Free T4 01/30/18 01/30/18 01/30/18 22:08 22:08 22:08 Creatine Kinase 48 CK-MB (CK-2) 0.76 Troponin I 0.054 NT-Pro-B Natriuret Pep [id number] H 01/31/18 01/31/18 01/31/18 04:27 04:27 13:17 Creatine Kinase 47 72 CK-MB (CK-2) 0.96 Troponin I 0.068 NT-Pro-B Natriuret Pep 01/31/18 01/31/18 01/31/18 13:17 18:20 18:20 Creatine Kinase 58 CK-MB (CK-2) 1.53 1.59 Troponin I 0.079 0.081 NT-Pro-B Natriuret Pep Impressions: Gastric Emptying Nuclear Medicine 01/30/18 00:00 IMPRESSION: No emptying of the administered activity from the stomach over 2 hours. KUB X-Ray 01/30/18 14:46 IMPRESSION: NO RADIOGRAPHIC EVIDENCE FOR ACUTE ABDOMINAL DISEASE. Assessment & Plan - Diagnosis (1) Intractable vomiting Qualifiers: Nausea presence: with nausea Is this a current diagnosis for this admission?: Yes Plan: Patient is admitted for the management of possible vomiting most likely due to diabetic gastroparesis (2) Diabetic gastroparesis Is this a current diagnosis for this admission?: Yes (3) End stage chronic kidney disease Is this a current diagnosis for this admission?: Yes Plan: Consultation from nephrology
[2018-01-31] MEDS ORDERED: INSULIN REG, HUMAN 100 UNIT/ML 3 ML VIAL (PYX) IV ONE (21:53)
--- NOTE | 2018-01-31 21:55 | PDOC PROGRESS REPORT ---
Subjective Progress Note for:: 01/31/18 Subjective:: Patient is alert the gastric emptying test was abnormal consistent with diabetic gastroparesis, the lab work showed elevated liver enzymes, bilirubin suggestive of obstructive hyperbilirubinemia Reason For Visit: PERSISTENT VOMITING ? DIABETES Physical Exam Vital Signs: Temp Pulse Resp BP Pulse Ox 94.6 F L 77 18 122/63 100 01/31/18 16:07 01/31/18 16:07 01/31/18 16:07 01/31/18 16:07 01/31/18 16:07 Intake & Output 01/30/18 01/31/18 02/01/18 06:59 06:59 06:59 Intake Total 0 320 Balance 0 320 Weight 106.8 kg General appearance: PRESENT: no acute distress Eye exam: PRESENT: PERRLA Respiratory exam: PRESENT: clear to auscultation charity Cardiovascular exam: PRESENT: +S1, +S2 GI/Abdominal exam: PRESENT: soft Neurological exam: PRESENT: alert Results Laboratory Results: 01/31/18 18:20 01/31/18 18:20 01/30/18 01/30/18 01/31/18 22:08 22:08 01:50 WBC RBC Hgb Hct MCV MCH MCHC RDW Plt Count Seg Neutrophils % Lymphocytes % Monocytes % Eosinophils % Basophils % Absolute Neutrophils Absolute Lymphocytes Absolute Monocytes Absolute Eosinophils Absolute Basophils Carbonic Acid 1.12 HCO3/H2CO3 Ratio 20:1 ABG pH 7.41 ABG pCO2 37.3 ABG pO2 72.4 L ABG HCO3 23.2 ABG O2 Saturation 94.8 ABG Base Excess -1.1 FiO2 21% Sodium Potassium Chloride Carbon Dioxide Anion Gap BUN Creatinine Est GFR ( Amer) Est GFR (Non-Af Amer) Glucose Calcium Phosphorus 6.2 H Magnesium 2.0 Total Bilirubin AST ALT Alkaline Phosphatase Total Protein Albumin Triglycerides Cholesterol LDL Cholesterol Direct VLDL Cholesterol HDL Cholesterol Amylase 50 Lipase 40.1 TSH 2.55 Free T4 1.35 01/31/18 01/31/18 01/31/18 04:27 04:27 13:17 WBC 11.9 H RBC 5.48 H Hgb 14.5 Hct 45.2 MCV 82 MCH 26.4 L MCHC 32.1 RDW 18.0 H Plt Count 230 Seg Neutrophils % 80.6 H Lymphocytes % 16.0 Monocytes % 2.8 L Eosinophils % 0.0 Basophils % 0.6 Absolute Neutrophils 9.6 H Absolute Lymphocytes 1.9 Absolute Monocytes 0.3 Absolute Eosinophils 0.0 Absolute Basophils 0.1 Carbonic Acid HCO3/H2CO3 Ratio ABG pH ABG pCO2 ABG pO2 ABG HCO3 ABG O2 Saturation ABG Base Excess FiO2 Sodium 142.8 Cancelled Potassium 4.0 Cancelled Chloride 107 Cancelled Carbon Dioxide 33 H Cancelled Anion Gap 3 L Cancelled BUN 36 H Cancelled Creatinine 1.28 H Cancelled Est GFR ( Amer) 51 L Cancelled Est GFR (Non-Af Amer) 43 L Cancelled Glucose 94 Cancelled Calcium 9.2 Cancelled Phosphorus Magnesium Total Bilirubin 0.3 AST 17 ALT 18 Alkaline Phosphatase 68 Total Protein 5.8 L Albumin 3.0 L Triglycerides 217 H Cholesterol 152.25 LDL Cholesterol Direct 59 VLDL Cholesterol 43.4 H HDL Cholesterol 61 Amylase Lipase TSH Free T4 01/31/18 01/31/18 01/31/18 14:52 18:20 18:20 WBC 18.3 H RBC 5.25 Hgb 13.8 Hct 44.3 MCV 84 MCH 26.3 L MCHC 31.2 L RDW 18.6 H Plt Count 155 Seg Neutrophils % 76.4 Lymphocytes % 15.0 Monocytes % 8.2 Eosinophils % 0.2 Basophils % 0.2 Absolute Neutrophils 14.0 H Absolute Lymphocytes 2.8 Absolute Monocytes 1.5 H Absolute Eosinophils 0.0 Absolute Basophils 0.0 Carbonic Acid HCO3/H2CO3 Ratio ABG pH ABG pCO2 ABG pO2 ABG HCO3 ABG O2 Saturation ABG Base Excess FiO2 Sodium Cancelled 139.0 Potassium Cancelled 6.1 H* D Chloride Cancelled 95 L Carbon Dioxide Cancelled 17 L D Anion Gap Cancelled 27 H BUN Cancelled 37 H Creatinine Cancelled 8.67 H Est GFR ( Amer) Cancelled 6 L Est GFR (Non-Af Amer) Cancelled 5 L Glucose Cancelled 113 H Calcium Cancelled 8.8 Phosphorus Magnesium Total Bilirubin 4.3 H D AST 252 H ALT 76 H Alkaline Phosphatase 288 H Total Protein 8.2 Albumin 4.3 Triglycerides Cholesterol LDL Cholesterol Direct VLDL Cholesterol HDL Cholesterol Amylase Lipase TSH Free T4 01/30/18 01/30/18 01/30/18 22:08 22:08 22:08 Creatine Kinase 48 CK-MB (CK-2) 0.76 Troponin I 0.054 NT-Pro-B Natriuret Pep [id number] H 01/31/18 01/31/18 01/31/18 04:27 04:27 13:17 Creatine Kinase 47 72 CK-MB (CK-2) 0.96 Troponin I 0.068 NT-Pro-B Natriuret Pep 01/31/18 01/31/18 01/31/18 13:17 18:20 18:20 Creatine Kinase 58 CK-MB (CK-2) 1.53 1.59 Troponin I 0.079 0.081 NT-Pro-B Natriuret Pep Impressions: Gastric Emptying Nuclear Medicine 01/30/18 00:00 IMPRESSION: No emptying of the administered activity from the stomach over 2 hours. KUB X-Ray 01/30/18 14:46 IMPRESSION: NO RADIOGRAPHIC EVIDENCE FOR ACUTE ABDOMINAL DISEASE. Assessment & Plan - Diagnosis (1) Intractable vomiting Qualifiers: Nausea presence: with nausea Is this a current diagnosis for this admission?: Yes Plan: The gastric emptying test consistent with gastroparesis (2) Diabetic gastroparesis Is this a current diagnosis for this admission?: Yes (3) Obstructive jaundice Is this a current diagnosis for this admission?: Yes Plan: CT scan of the abdomen and pelvis without contrast ordered (4) End stage chronic kidney disease Is this a current diagnosis for this admission?: Yes Plan: Per nephrology
[2018-01-31] MEDS ORDERED: SODIUM POLYSTYRENE SULFONATE 15 GM/60 ML PO SCH (22:00)
[2018-02-01 01:11] LABS: ABSOLUTE BASOPHILS # (AUTO) 0.1 10^3/uL (0.0-0.2); ABSOLUTE LYMPHOCYTES (AUTO) 1.7 10^3/uL (0.5-4.7); ABSOLUTE NEUT (AUTO) 12.9 10^3/uL (1.7-8.2); BASOPHILS % (AUTO) 0.4 % (0-2); HEMATOCRIT 46.1 % (36.0-47.0); HEMOGLOBIN 14.3 g/dL (12.0-15.5); LYMPHOCYTES % (AUTO) 10.8 % (13-45); MEAN CORPUSCULAR VOLUME 84 fl (80-97); MONOCYTES % (AUTO) 6.6 % (3-13); PLATELET COUNT 122 10^3/uL (150-450); RED BLOOD COUNT 5.49 10^6/uL (3.72-5.28); SEGMENTED NEUTROPHILS % (AUTO) 82.2 % (42-78); TOTAL CELLS COUNTED % (AUTO) 100 %; WHITE BLOOD COUNT 15.7 10^3/uL (4.0-10.5)
[2018-02-01 01:45] LABS: BLOOD UREA NITROGEN 41 mg/dL (7-20); CALCIUM 9.1 mg/dL (8.4-10.2); GLUCOSE 154 mg/dL (75-110)
[2018-02-01 02:06] LABS: CARBON DIOXIDE 15 mmol/L (22-30); CHLORIDE 97 mmol/L (98-107); SODIUM 144.2 mmol/L (137-145)
[2018-02-01 02:09] LABS: ANION GAP 32 (5-19)
[2018-02-01 02:11] LABS: POTASSIUM 6.2 mmol/L (3.6-5.0)
[2018-02-01] MEDS: DIPHENHYDRAMINE HCL 50 MG CAPSULE PO PRN ×2 (03:00→12:22)
[2018-02-01] MEDS: HEPARIN SOD (PORCINE) 5,000 UNIT/ML 1 ML SYRINGE SUBCUT SCH ×3 (06:45→22:55)
[2018-02-01] MEDS: METOPROLOL SUCCINATE 50 MG TAB.SR.24H PO SCH (12:20)
[2018-02-01] MEDS: AMLODIPINE BESYLATE 10 MG TABLET PO SCH (12:20)
[2018-02-01] MEDS: VALSARTAN 160 MG TABLET PO SCH (12:21)
[2018-02-01] MEDS: HYDROCHLOROTHIAZIDE 25 MG TABLET PO SCH (12:21)
[2018-02-01] MEDS: ONDANSETRON 4 MG TAB.RAPDIS PO PRN (13:07)
[2018-02-01] MEDS: METOCLOPRAMIDE HCL INJ/PF 10 MG/2 ML SDV IV PRN (13:07)
[2018-02-01] MEDS ORDERED: TRAMADOL HCL 50 MG TABLET PO PRN (13:31)
--- NOTE | 2018-02-01 16:12 | RADIOLOGY REPORT (SQ) ---
EXAM DESCRIPTION: CT ABD/PELVIS NO ORAL OR IV COMPLETED DATE/TIME: 02/01/2018 3:53 pm REASON FOR STUDY: OBSTRUCTIVE JAUNDICE ? PANCREATIC MASS E09.21 DRUG/CHEM DIABETES MELLITUS W DIAB ETIC NEPHROPATHY I42.0 DILATED CARDIOMYOPATHY COMPARISON: 01/11/2018. TECHNIQUE: CT scan of the abdomen and pelvis performed without intravenous or oral contrast. Images reviewed with lung, soft tissue, and bone windows. Reconstructed coronal and sagittal MPR images revi ewed. All images stored on PACS. All CT scanners at this facility use dose modulation, iterative reconstruction, and/or weight based d osing when appropriate to reduce radiation dose to as low as reasonably achievable (ALARA). [facility]: Dose Right [facility]: CareDose [facility]: Dose Right [facility]: Teradose 4D [facility]: Clear Water Outdoor RADIATION DOSE: CT Rad equipment meets quality standard of care and radiation dose reduction techniq ues were employed. CTDIvol: 29.0 mGy. DLP: 1564 mGy-cm.mGy. LIMITATIONS: None. FINDINGS: LOWER CHEST: Scattered coronary atherosclerosis. Cardiomegaly. NON-CONTRASTED LIVER, SPLEEN, ADRENALS: Evaluation limited by lack of IV contrast. No identified sign ificant masses. Nodular thickening of the left adrenal gland. PANCREAS: Limited exam by lack of of IV contrast. No discrete mass. No peripancreatic inflammatory changes. GALLBLADDER: Not well identified. RIGHT KIDNEY AND URETER: No suspicious masses. Assessment limited by lack of IV contrast. No signif icant calcifications. No hydronephrosis or hydroureter. LEFT KIDNEY AND URETER: No suspicious masses. Assessment limited by lack of IV contrast. No signifi cant calcifications. No hydronephrosis or hydroureter. AORTA AND RETROPERITONEUM: Aortoiliac atherosclerosis. No discrete aneurysm. BOWEL AND PERITONEAL CAVITY: Scattered loops of mildly dilated jejunal measuring up to 3.0 cm with as sociated gas fluid levels. There is decompressed bowel distally with transition in the left lower qu adrant. No evidence of focal bowel wall thickening. APPENDIX: Normal. PELVIS, BLADDER, AND ABDOMINAL WALL:Decompressed urinary bladder. No free fluid. BONES: No acute bony abnormality. No suspicious osseous lesions. OTHER: No other significant finding. IMPRESSION: 1. No evidence pancreatic mass or biliary obstruction on this noncontrast exam. 2. Few loops of mildly dilated jejunum measuring up to 3.0 cm with associated gas fluid levels and d ecompressed distal bowel. Findings may represent early obstructive process. 3. Cardiomegaly. COMMENT: Quality ID # [id number]: Final reports with documentation of one or more dose reduction techniques (e.g., Automated exposure control, adjustment of the mA and/or kV according to patient size, use of iterative reconstruction technique) TECHNICAL DOCUMENTATION: JOB ID: [id number] [email or web address]- All Rights Reserved Reading location - IP/workstation name: [email or web address] [id number]
--- NOTE | 2018-02-01 16:36 | PDOC CONSULTATION ---
Consultation Consult Date: 02/01/18 Consult reason:: ESRD for hemodialysis and hyperkalemia. History of Present Illness Admission Date/PCP: 01/30/18 18:08 ROBERTO SALDANA MD History of Present Illness: MARIOLA GAR is a 58 year old femaleWith a history of long-standing complicated diabetes mellitus hypertension and ESRD on hemodialysis was admitted with history of 2-3 days of progressive nausea and vomiting abdominal pains. She also had some intermittent diarrhea with constipation. Evaluations revealed that she most likely has autonomic dysfunction with the diabetic gastroparesis and was confirmed with gastric emptying scan yesterday.She is currently being seen on dialysis which she is undergoing without any issues. She denies any history of chest pain or shortness of breath. Vital signs are stable. Labs and medications were reviewed with the patient. Past Medical History Cardiac Medical History: Reports: CHF-Diastolic, Coronary Artery Disease, Hyperlipidemia, Hypertension-primary, Myocardial Infarction - 2007 Pulmonary Medical History: Reports: Sleep Apnea - On CPap Denies: Asthma, Bronchitis, Chronic Obstructive Pulmonary Disease (COPD), Pneumonia Neurological Medical History: Denies: Seizures Endocrine Medical History: Reports: Diabetes Mellitus Type 2, Hypothyroidism Complications of Diabetes: Reports: Nephropathy, Retinopathy Renal/ Medical History: Reports: End Stage Renal Disease, Hypercalcemia, Secondary Hyperparathyroidism GI Medical History: Reports: Gastroesophageal Reflux Disease Musculoskeltal Medical History: Reports: Arthritis, Gout, Systemic Lupus Erythematosus Psychiatric Medical History: Reports: Depression Past Surgical History Past Surgical History: Reports: Appendectomy, Section, Cholecystectomy, Hysterectomy, Orthopedic Surgery - cancer removed from back, Other - parathyroidectomy, 3-1/2 glands removed on 01/13/2016; right adrenalectomy Social History Smoking Status: Unknown if Ever Smoked Frequency of Alcohol Use: None Hx Recreational Drug Use: No Drugs: None Hx Prescription Drug Abuse: No - Advance Directive Resuscitation Status: Full Code Family History Parental Family History Reviewed: Yes - Negative for ESRD Children Family History Reviewed: No Sibling(s) Family History Reviewed.: No Medication/Allergy Home Medications: Insulin Glargine,Hum.rec.anlog [Lantus Solostar] 10 unit SQ DAILY 12/13/17 Insulin Lispro [Humalog Insulin (Lispro) 100 unit/mL] 10 unit INJ TID 12/13/17 Midodrine HCl 10 mg PO ASDIR PRN 12/13/17 Nortriptyline HCl [Pamelor] 50 mg PO QHS 12/13/17 Tramadol HCl [Ultram 50 mg Tablet] 50 mg PO Q6HP PRN 12/13/17 Ondansetron [Zofran Odt 4 mg Tablet] 1 - 2 tab PO Q4H PRN #15 tab.rapdis 01/11/18 Metoclopramide HCl [Reglan 10 mg Tablet] 10 mg PO Q8H PRN 10 Days #30 tablet 01/18/18 Amitriptyline HCl [Elavil 75 Mg Tablet] 75 mg PO DAILY 01/31/18 Calcitriol [Rocaltrol] 2 tab PO DAILY 01/31/18 Clonazepam [Klonopin 1 mg Tablet] 1 mg PO BID 01/31/18 Diphenhydramine HCl [Benadryl] 50 mg PO Q4 01/31/18 Duloxetine HCl [Cymbalta] 60 mg PO DAILY 01/31/18 Gabapentin [Neurontin 300 mg Capsule] 300 mg PO Q8 01/31/18 Hydralazine HCl [Apresoline 25 mg Tablet] 25 mg PO TID 01/31/18 Ranitidine HCl [Acid Control] 150 mg PO BID 01/31/18 Allergies/Adverse Reactions: labetalol [Labetalol] Allergy (Severe, Verified 01/18/18 16:01) swelling, sob Penicillins Allergy (Severe, Verified 01/18/18 16:01) itching duloxetine Allergy (Verified 01/18/18 16:01) latex Allergy (Verified 01/18/18 16:01) linagliptin [From Tradjenta] Allergy (Verified 01/18/18 16:01) terbinafine Allergy (Verified 01/18/18 16:01) Liraglutide [From Victoza] Adverse Reaction (Verified 01/18/18 16:01) nausea/vomitting Review of Systems Constitutional: PRESENT: anorexia, fatigue, weakness. ABSENT: chills, fever(s), headache(s), night sweats Ears: ABSENT: hearing changes Nose, Mouth, and Throat: ABSENT: mouth pain, sore throat Cardiovascular: ABSENT: chest pain, dyspnea on exertion, orthropnea, palpitations Respiratory: ABSENT: dyspnea, hemoptysis Gastrointestinal: PRESENT: abdominal pain, bloating, constipation, diarrhea, heartburn, nausea, vomiting. ABSENT: coffee ground emesis, dysphagia, hematemesis, hematochezia Genitourinary: ABSENT: dysuria, hematuria Integumentary: ABSENT: erythema Neurological: ABSENT: abnormal speech, convulsions, focal weakness, frequent falls Endocrine: ABSENT: polydipsia Hematologic/Lymphatic: ABSENT: easy bleeding, easy bruising, lymphadenopathy Physical Exam Vital Signs: Temp Pulse Resp BP Pulse Ox 97.4 F 80 16 141/82 H 100 02/01/18 12:32 02/01/18 12:32 02/01/18 12:32 02/01/18 12:32 02/01/18 12:32 Intake & Output 01/31/18 02/01/18 02/02/18 06:59 06:59 06:59 Intake Total 500 1140 354 Output Total 4100 Balance 500 1140 -3746 Weight 106.8 kg 109.9 kg 109.9 kg General appearance: PRESENT: no acute distress Eye exam: PRESENT: conjunctiva pink, EOMI, PERRLA. ABSENT: nystagmus, scleral icterus Ear exam: PRESENT: normal external ear exam Mouth exam: PRESENT: moist, neck supple Neck exam: ABSENT: lymphadenopathy, meningismus, tenderness, thyromegaly, tracheal deviation Respiratory exam: PRESENT: clear to auscultation charity. ABSENT: crackles Cardiovascular exam: PRESENT: +S1, +S2, systolic murmur GI/Abdominal exam: PRESENT: normal bowel sounds, soft. ABSENT: tenderness Extremities exam: ABSENT: joint swelling Musculoskeletal exam: PRESENT: normal inspection Neurological exam: PRESENT: alert, awake, oriented to person, oriented to place Psychiatric exam: PRESENT: appropriate affect Skin exam: ABSENT: cyanosis, erythema, rash Results Laboratory Results: 02/01/18 00:59 02/01/18 00:59 01/31/1818 02/01/18 18:20 18:20 00:59 WBC 18.3 H 15.7 H RBC 5.25 5.49 H Hgb 13.8 14.3 Hct 44.3 46.1 MCV 84 84 MCH 26.3 L 26.0 L MCHC 31.2 L 31.0 L RDW 18.6 H 18.0 H Plt Count 155 122 L Seg Neutrophils % 76.4 82.2 H Lymphocytes % 15.0 10.8 L Monocytes % 8.2 6.6 Eosinophils % 0.2 0.0 Basophils % 0.2 0.4 Absolute Neutrophils 14.0 H 12.9 H Absolute Lymphocytes 2.8 1.7 Absolute Monocytes 1.5 H 1.0 Absolute Eosinophils 0.0 0.0 Absolute Basophils 0.0 0.1 Sodium 139.0 Potassium 6.1 H* D Chloride 95 L Carbon Dioxide 17 L D Anion Gap 27 H BUN 37 H Creatinine 8.67 H Est GFR ( Amer) 6 L Est GFR (Non-Af Amer) 5 L Glucose 113 H Calcium 8.8 Total Bilirubin 4.3 H D AST 252 H ALT 76 H Alkaline Phosphatase 288 H Total Protein 8.2 Albumin 4.3 02/01/18 02/01/18 00:59 00:59 WBC RBC Hgb Hct MCV MCH MCHC RDW Plt Count Seg Neutrophils % Lymphocytes % Monocytes % Eosinophils % Basophils % Absolute Neutrophils Absolute Lymphocytes Absolute Monocytes Absolute Eosinophils Absolute Basophils Sodium 144.2 Potassium 6.2 H* Cancelled Chloride 97 L Carbon Dioxide 15 L Anion Gap 32 H BUN 41 H Creatinine 9.18 H Est GFR ( Amer) 5 L Est GFR (Non-Af Amer) 4 L Glucose 154 H Calcium 9.1 Total Bilirubin AST ALT Alkaline Phosphatase Total Protein Albumin 01/30/18 01/30/18 01/30/18 22:08 22:08 22:08 Creatine Kinase 48 CK-MB (CK-2) 0.76 Troponin I 0.054 NT-Pro-B Natriuret Pep [id number] H 01/31/18 01/31/18 01/31/18 04:27 04:27 13:17 Creatine Kinase 47 72 CK-MB (CK-2) 0.96 Troponin I 0.068 NT-Pro-B Natriuret Pep 01/31/18 01/31/18 01/31/18 13:17 18:20 18:20 Creatine Kinase 58 CK-MB (CK-2) 1.53 1.59 Troponin I 0.079 0.081 NT-Pro-B Natriuret Pep Impressions: Gastric Emptying Nuclear Medicine 01/30/18 00:00 IMPRESSION: No emptying of the administered activity from the stomach over 2 hours. KUB X-Ray 01/30/18 14:46 IMPRESSION: NO RADIOGRAPHIC EVIDENCE FOR ACUTE ABDOMINAL DISEASE. Abdomen/Pelvis CT 01/31/18 00:00 IMPRESSION: 1. No evidence pancreatic mass or biliary obstruction on this noncontrast exam. 2. Few loops of mildly dilated jejunum measuring up to 3.0 cm with associated gas fluid levels and decompressed distal bowel. Findings may represent early obstructive process. 3. Cardiomegaly. Assessment & Plan - Diagnosis (1) Diabetic gastroparesis Is this a current diagnosis for this admission?: Yes Plan: Currently she is symptomatically better. Further plans as per Dr. Saldana. (2) Hyperkalemia Plan: This should respond to dialysis. Will monitor. (3) End stage chronic kidney disease Plan: She is currently undergoing dialysis which is being supervised to ensure safe and smooth procedure. Hemodynamically stable.Plan to remove between 4 and 5 L as tolerated. Dialysis orders were reviewed and discussed with the treating dialysis nurse. (4) Intractable vomiting Qualifiers: Nausea presence: with nausea Is this a current diagnosis for this admission?: Yes Plan: Secondary to diabetic gastroparesis. 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 Diabetes mellitus complication status: with kidney complications Diabetes mellitus complication detail: with chronic kidney disease Chronic kidney disease stage: on chronic dialysis Qualified Code(s): E11.22 - Type 2 diabetes mellitus with diabetic chronic kidney disease; N18.6 - End stage renal disease; Z99.2 - Dependence on renal dialysis; Z99.2 - Dependence on renal dialysis; Z99.2 - Dependence on renal dialysis; N18.6 - End stage renal disease; N18.6 - End stage renal disease; N18.6 - End stage renal disease; 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 (7) Abnormal liver function tests Plan: As per Dr. Saldana.
--- NOTE | 2018-02-01 19:03 | PDOC PROGRESS REPORT ---
Subjective Progress Note for:: 02/01/18 Subjective:: She had hemodialysis today, there was abnormal liver enzymes consistent with obstructive hyperbilirubinemia, CT scan of the abdomen and pelvis without contrast was obtained, CT scan suggested transition point that could be due to small bowel obstruction Reason For Visit: PERSISTENT VOMITING ? DIABETES Physical Exam Vital Signs: Temp Pulse Resp BP Pulse Ox 97.4 F 80 16 141/82 H 100 02/01/18 12:32 02/01/18 12:32 02/01/18 12:32 02/01/18 12:32 02/01/18 12:32 Intake & Output 01/31/18 02/01/18 02/02/18 06:59 06:59 06:59 Intake Total 500 1140 354 Output Total 4100 Balance 500 1140 -3746 Weight 106.8 kg 109.9 kg 109.9 kg General appearance: PRESENT: no acute distress Eye exam: PRESENT: PERRLA Respiratory exam: PRESENT: clear to auscultation [facility] Cardiovascular exam: PRESENT: +S1, +S2 GI/Abdominal exam: PRESENT: soft, tenderness Neurological exam: PRESENT: alert, CN II-XII grossly intact Results Laboratory Results: 02/01/18 00:59 02/01/18 00:59 01/31/18 02/01/18 02/01/18 18:20 00:59 00:59 WBC 15.7 H RBC 5.49 H Hgb 14.3 Hct 46.1 MCV 84 MCH 26.0 L MCHC 31.0 L RDW 18.0 H Plt Count 122 L Seg Neutrophils % 82.2 H Lymphocytes % 10.8 L Monocytes % 6.6 Eosinophils % 0.0 Basophils % 0.4 Absolute Neutrophils 12.9 H Absolute Lymphocytes 1.7 Absolute Monocytes 1.0 Absolute Eosinophils 0.0 Absolute Basophils 0.1 Sodium 139.0 144.2 Potassium 6.1 H* D 6.2 H* Chloride 95 L 97 L Carbon Dioxide 17 L D 15 L Anion Gap 27 H 32 H BUN 37 H 41 H Creatinine 8.67 H 9.18 H Est GFR ( Amer) 6 L 5 L Est GFR (Non-Af Amer) 5 L 4 L Glucose 113 H 154 H Calcium 8.8 9.1 Total Bilirubin 4.3 H D AST 252 H ALT 76 H Alkaline Phosphatase 288 H Total Protein 8.2 Albumin 4.3 02/01/18 00:59 WBC RBC Hgb Hct MCV MCH MCHC RDW Plt Count Seg Neutrophils % Lymphocytes % Monocytes % Eosinophils % Basophils % Absolute Neutrophils Absolute Lymphocytes Absolute Monocytes Absolute Eosinophils Absolute Basophils Sodium Potassium Cancelled Chloride Carbon Dioxide Anion Gap BUN Creatinine Est GFR ( Amer) Est GFR (Non-Af Amer) Glucose Calcium Total Bilirubin AST ALT Alkaline Phosphatase Total Protein Albumin 01/30/18 01/30/18 01/30/18 22:08 22:08 22:08 Creatine Kinase 48 CK-MB (CK-2) 0.76 Troponin I 0.054 NT-Pro-B Natriuret Pep 00916 H 01/31/18 01/31/18 01/31/18 04:27 04:27 13:17 Creatine Kinase 47 72 CK-MB (CK-2) 0.96 Troponin I 0.068 NT-Pro-B Natriuret Pep 01/31/18 01/31/18 01/31/18 13:17 18:20 18:20 Creatine Kinase 58 CK-MB (CK-2) 1.53 1.59 Troponin I 0.079 0.081 NT-Pro-B Natriuret Pep Impressions: Gastric Emptying Nuclear Medicine 01/30/18 00:00 IMPRESSION: No emptying of the administered activity from the stomach over 2 hours. KUB X-Ray 01/30/18 14:46 IMPRESSION: NO RADIOGRAPHIC EVIDENCE FOR ACUTE ABDOMINAL DISEASE. Abdomen/Pelvis CT 01/31/18 00:00 IMPRESSION: 1. No evidence pancreatic mass or biliary obstruction on this noncontrast exam. 2. Few loops of mildly dilated jejunum measuring up to 3.0 cm with associated gas fluid levels and decompressed distal bowel. Findings may represent early obstructive process. 3. Cardiomegaly. Assessment & Plan - Diagnosis (1) Intractable vomiting Qualifiers: Nausea presence: with nausea Is this a current diagnosis for this admission?: Yes (2) Diabetic gastroparesis Is this a current diagnosis for this admission?: Yes (3) Obstructive jaundice Is this a current diagnosis for this admission?: Yes (4) End stage chronic kidney disease Is this a current diagnosis for this admission?: Yes (5) Small bowel obstruction Is this a current diagnosis for this admission?: Yes Plan: Patient seen by the bedside, consultation ordered from surgery
[2018-02-01] MEDS ORDERED: PHARMACY COMMUNICATION ORDER MC NR (19:15)
[2018-02-01] MEDS ORDERED: DIPHENHYDRAMINE HCL 50 MG CAPSULE NG PRN (20:18)
[2018-02-01] MEDS ORDERED: TRAMADOL HCL 50 MG TABLET NG PRN (20:19)
[2018-02-01] MEDS ORDERED: ONDANSETRON 4 MG TAB.RAPDIS NG PRN (20:20)
--- NOTE | 2018-02-02 00:05 | PDOC CONSULTATION ---
Consultation Consult Date: 02/01/18 Consult reason:: suspected small bowel obstruction. hyperbilirubinemia History of Present Illness Admission Date/PCP: 01/30/18 18:08 ROBERTO SALDANA MD History of Present Illness: MARIOLA GAR is a 58 year old female with hx of multiple medical problems, including ESRD on HD 3/week, CHF, HTN, operated pheochromocytoma in 1999, spinal stenosis, gastroparesis, and recent admission for persistent vomiting most likely related to gastroparesis. However, a CT scan A/P done w/o any contrast reveals the possibility of small bowel obstruction. The patient reports midabdominal discomfort, no flatus but liquid stools today after the administration of several doses of laxative yesterday. In addition, blood work done today while she was in dialysis reveals elevated liver enzymes and hyperbilirubinemia. No gallbladder or biliary abnormalities are identified in the recently done CT scan A/P. Past Medical History Cardiac Medical History: Reports: Congestive Heart Failure, Coronary Artery Disease, Myocardial Infarction - 2007, Hyperlipidema, Hypertension Pulmonary Medical History: Reports: Sleep Apnea - On CPap Denies: Asthma, Bronchitis, Chronic Obstructive Pulmonary Disease (COPD), Pneumonia Neurological Medical History: Denies: Seizures Endocrine Medical History: Reports: Diabetes Mellitus Type 1, Diabetes Mellitus Type 2, Hypothyroidism, Obesity Renal/ Medical History: Reports: End Stage Renal Disease GI Medical History: Reports: Gastroesophageal Reflux Disease Musculoskeltal Medical History: Reports: Arthritis, Gout Psychiatric Medical History: Reports: Depression Hematology: Reports: Anemia Past Surgical History Past Surgical History: Reports: Appendectomy, Section, Cholecystectomy, Hysterectomy, Orthopedic Surgery - cancer removed from back, Other - parathy roidectomy, 3-1/2 glands removed on 01/13/2016; right adrenalectomy Social History Smoking Status: Never Smoker Frequency of Alcohol Use: None Hx Recreational Drug Use: No Drugs: None Hx Prescription Drug Abuse: No - Advance Directive Resuscitation Status: Full Code Family History Family History: Reviewed & Not Pertinent Parental Family History Reviewed: No Children Family History Reviewed: No Sibling(s) Family History Reviewed.: No Medication/Allergy Home Medications: Insulin Glargine,Hum.rec.anlog [Lantus Solostar] 10 unit SQ DAILY 12/13/17 Insulin Lispro [Humalog Insulin (Lispro) 100 unit/mL] 10 unit INJ TID 12/13/17 Midodrine HCl 10 mg PO ASDIR PRN 12/13/17 Nortriptyline HCl [Pamelor] 50 mg PO QHS 12/13/17 Tramadol HCl [Ultram 50 mg Tablet] 50 mg PO Q6HP PRN 12/13/17 Ondansetron [Zofran Odt 4 mg Tablet] 1 - 2 tab PO Q4H PRN #15 tab.rapdis Metoclopramide HCl [Reglan 10 mg Tablet] 10 mg PO Q8H PRN 10 Days #30 tablet 01/18/18 Amitriptyline HCl [Elavil 75 Mg Tablet] 75 mg PO DAILY 01/31/18 Calcitriol [Rocaltrol] 2 tab PO DAILY 01/31/18 Clonazepam [Klonopin 1 mg Tablet] 1 mg PO BID 01/31/18 Diphenhydramine HCl [Benadryl] 50 mg PO Q4 01/31/18 Duloxetine HCl [Cymbalta] 60 mg PO DAILY 01/31/18 Gabapentin [Neurontin 300 mg Capsule] 300 mg PO Q8 01/31/18 Hydralazine HCl [Apresoline 25 mg Tablet] 25 mg PO TID 01/31/18 Ranitidine HCl [Acid Control] 150 mg PO BID 01/31/18 Allergies/Adverse Reactions: labetalol [Labetalol] Allergy (Severe, Verified 01/18/18 16:01) swelling, sob Penicillins Allergy (Severe, Verified 01/18/18 16:01) itching duloxetine Allergy (Verified 01/18/18 16:01) latex Allergy (Verified 01/18/18 16:01) linagliptin [From Tradjenta] Allergy (Verified 01/18/18 16:01) terbinafine Allergy (Verified 01/18/18 16:01) Liraglutide [From Victoza] Adverse Reaction (Verified 01/18/18 16:01) nausea/vomitting Physical Exam Vital Signs: Temp Pulse Resp BP Pulse Ox 97.4 F 72 18 167/87 H 100 02/01/18 20:00 02/01/18 20:00 02/01/18 20:00 02/01/18 20:00 02/01/18 20:00 Intake & Output 01/31/18 02/01/18 02/02/18 06:59 06:59 06:59 Intake Total 500 1140 354 Output Total 4100 Balance 500 1140 3741 Weight 106.8 kg 109.9 kg 109.9 kg Results Laboratory Results: 02/01/18 00:59 02/01/18 00:59 02/01/18 02/01/18 02/01/18 00:59 00:59 00:59 WBC 15.7 H RBC 5.49 H Hgb 14.3 Hct 46.1 MCV 84 MCH 26.0 L MCHC 31.0 L RDW 18.0 H Plt Count 122 L Seg Neutrophils % 82.2 H Lymphocytes % 10.8 L Monocytes % 6.6 Eosinophils % 0.0 Basophils % 0.4 Absolute Neutrophils 12.9 H Absolute Lymphocytes 1.7 Absolute Monocytes 1.0 Absolute Eosinophils 0.0 Absolute Basophils 0.1 Sodium 144.2 Potassium 6.2 H* Cancelled Chloride 97 L Carbon Dioxide 15 L Anion Gap 32 H BUN 41 H Creatinine 9.18 H Est GFR ( Amer) 5 L Est GFR (Non-Af Amer) 4 L Glucose 154 H Calcium 9.1 01/30/18 01/30/18 01/30/18 22:08 22:08 22:08 Creatine Kinase 48 CK-MB (CK-2) 0.76 Troponin I 0.054 NT-Pro-B Natriuret Pep 66063 H 01/31/18 01/31/18 01/31/18 04:27 04:27 13:17 Creatine Kinase 47 72 CK-MB (CK-2) 0.96 Troponin I 0.068 NT-Pro-B Natriuret Pep 01/31/18 01/31/18 01/31/18 13:17 18:20 18:20 Creatine Kinase 58 CK-MB (CK-2) 1.53 1.59 Troponin I 0.079 0.081 NT-Pro-B Natriuret Pep Impressions: Gastric Emptying Nuclear Medicine 01/30/18 00:00 IMPRESSION: No emptying of the administered activity from the stomach over 2 hours. KUB X-Ray 01/30/18 14:46 IMPRESSION: NO RADIOGRAPHIC EVIDENCE FOR ACUTE ABDOMINAL DISEASE. Abdomen/Pelvis CT 01/31/18 00:00 IMPRESSION: 1. No evidence pancreatic mass or biliary obstruction on this noncontrast exam. 2. Few loops of mildly dilated jejunum measuring up to 3.0 cm with associated gas fluid levels and decompressed distal bowel. Findings may represent early obstructive process. 3. Cardiomegaly. Assessment & Plan - Diagnosis (2) Diabetic gastroparesis Is this a current diagnosis for this admission?: Yes (3) Intractable vomiting Qualifiers: Nausea presence: with nausea Is this a current diagnosis for this admission?: Yes (4) Nausea and vomiting Qualifiers: Vomiting type: unspecified Vomiting Intractability: unspecified Qualified Code(s): R11.2 - Nausea with vomiting, unspecified Is this a current diagnosis for this admission?: Yes (5) Small bowel obstruction Is this a current diagnosis for this admission?: Yes (6) Acute pulmonary edema Is this a current diagnosis for this admission?: Yes - Plan Summary Plan Summary: A/ vomiting gastroparesis CT scan A/P significant for possible SBO (no contrast used) elevated liver enzymes with hyperbilirubinemia (4.7) in asymptomatic patient ESRD on HD presence of bowel function: diagnosis of SBO seems unlikely at this point P/ Hold off NGT insertion at this time Repeat CT scan A/P with IV and oral contrast, wait 3 hrs prior to scanning to follow the path of the contrast US liver and gallbladder in AM Repeat CBC, CMP in AM to verify liver enzyme elevation Keep NPO until the above orders and tests have been executed.
[2018-02-02] MEDS ORDERED: TRAMADOL HCL 50 MG TABLET PO PRN (00:30)
[2018-02-02] MEDS ORDERED: ONDANSETRON 4 MG TAB.RAPDIS PO PRN (00:30)
[2018-02-02] MEDS ORDERED: DIPHENHYDRAMINE HCL 50 MG CAPSULE PO PRN (00:30)
[2018-02-02 05:04] LABS: ABSOLUTE BASOPHILS # (AUTO) 0.1 10^3/uL (0.0-0.2); ABSOLUTE LYMPHOCYTES (AUTO) 1.9 10^3/uL (0.5-4.7); ABSOLUTE MONOCYTES (AUTO) 1.5 10^3/uL (0.1-1.4); ABSOLUTE NEUT (AUTO) 11.1 10^3/uL (1.7-8.2); BASOPHILS % (AUTO) 0.4 % (0-2); EOSINOPHILS % (AUTO) 0.3 % (0-6); HEMATOCRIT 50.7 % (36.0-47.0); HEMOGLOBIN 16.3 g/dL (12.0-15.5); LYMPHOCYTES % (AUTO) 12.9 % (13-45); MEAN CORPUSCULAR HEMOGLOBIN 26.3 pg (27.0-33.4); MEAN CORPUSCULAR HGB CONC 32.2 g/dL (32.0-36.0); MEAN CORPUSCULAR VOLUME 82 fl (80-97); SEGMENTED NEUTROPHILS % (AUTO) 76.4 % (42-78); TOTAL CELLS COUNTED % (AUTO) 100 %; WHITE BLOOD COUNT 14.5 10^3/uL (4.0-10.5)
[2018-02-02] MEDS: HEPARIN SOD (PORCINE) 5,000 UNIT/ML 1 ML SYRINGE SUBCUT SCH ×3 (05:09→21:48)
[2018-02-02 05:26] LABS: PLATELET COUNT 118 10^3/uL (150-450)
[2018-02-02] MEDS ORDERED: ONDANSETRON HCL INJ/PF 4 MG/2 ML SDV ONE (07:36)
[2018-02-02 07:46] LABS: ALANINE AMINOTRANSFERASE 204 U/L (9-52); ALBUMIN 4.7 g/dL (3.5-5.0); ALKALINE PHOSPHATASE 385 U/L (38-126); ASPARTATE AMINO TRANSFERASE 338 U/L (14-36); BILIRUBIN,DIRECT 1.5 mg/dL (0.0-0.4); BILIRUBIN,TOTAL 2.2 mg/dL (0.2-1.3); BLOOD UREA NITROGEN 39 mg/dL (7-20); CALCIUM 8.7 mg/dL (8.4-10.2); GLUCOSE 248 mg/dL (75-110); POTASSIUM 3.9 mmol/L (3.6-5.0); TOTAL PROTEIN 9.3 g/dL (6.3-8.2)
[2018-02-02 07:53] LABS: CARBON DIOXIDE 29 mmol/L (22-30); CHLORIDE 87 mmol/L (98-107); SODIUM 138.4 mmol/L (137-145)
[2018-02-02 07:57] LABS: ANION GAP 22 (5-19)
[2018-02-02] MEDS: AMLODIPINE BESYLATE 10 MG TABLET PO SCH (09:50)
[2018-02-02] MEDS: HYDROCHLOROTHIAZIDE 25 MG TABLET PO SCH (09:50)
[2018-02-02] MEDS: VALSARTAN 160 MG TABLET PO SCH (09:50)
[2018-02-02] MEDS: METOPROLOL SUCCINATE 50 MG TAB.SR.24H PO SCH (09:50)
--- NOTE | 2018-02-02 11:16 | PDOC PROGRESS REPORT ---
Subjective Progress Note for:: 02/02/18 Subjective:: c/o abdominal pain Reason For Visit: PERSISTENT VOMITING ? DIABETES pt with hx of renal failure, hx of gastroparesis seen by surgery yesterday for ct findings of poss sbo ng was held yesterday in lieu of the fact seh was passsing flatus and stool Physical Exam Vital Signs: Temp Pulse Resp BP Pulse Ox 97.3 F 69 14 124/91 H 98 02/02/18 08:00 02/02/18 08:00 02/02/18 08:00 02/02/18 08:00 02/02/18 08:00 Intake & Output 02/01/18 02/02/18 02/03/18 06:59 06:59 06:59 Intake Total 1140 950 Output Total 4100 Balance 1140 -3150 Weight 109.9 kg 106.1 kg General appearance: PRESENT: mild distress, obese GI/Abdominal exam: PRESENT: distended, hypoactive bowel sounds Results Laboratory Results: 02/02/18 03:54 02/02/18 07:20 02/02/18 02/02/18 02/02/18 03:54 03:54 07:20 WBC 14.5 H RBC 6.20 H Hgb 16.3 H Hct 50.7 H MCV 82 MCH 26.3 L MCHC 32.2 RDW 18.0 H Plt Count 118 L Seg Neutrophils % 76.4 Lymphocytes % 12.9 L Monocytes % 10.0 Eosinophils % 0.3 Basophils % 0.4 Absolute Neutrophils 11.1 H Absolute Lymphocytes 1.9 Absolute Monocytes 1.5 H Absolute Eosinophils 0.0 Absolute Basophils 0.1 Sodium Cancelled 138.4 Potassium Cancelled 3.9 Chloride Cancelled 87 L Carbon Dioxide Cancelled 29 Anion Gap Cancelled 22 H BUN Cancelled 39 H Creatinine Cancelled 6.95 H Est GFR ( Amer) Cancelled 7 L Est GFR (Non-Af Amer) Cancelled 6 L Glucose Cancelled 248 H Calcium Cancelled 8.7 Total Bilirubin Cancelled 2.2 H AST Cancelled 338 H ALT Cancelled 204 H Alkaline Phosphatase Cancelled 385 H Total Protein Cancelled 9.3 H Albumin Cancelled 4.7 01/30/18 01/30/18 01/30/18 22:08 22:08 22:08 Creatine Kinase 48 CK-MB (CK-2) 0.76 Troponin I 0.054 NT-Pro-B Natriuret Pep 10418 H 01/31/18 01/31/18 01/31/18 04:27 04:27 13:17 Creatine Kinase 47 72 CK-MB (CK-2) 0.96 Troponin I 0.068 NT-Pro-B Natriuret Pep 01/31/18 01/31/18 01/31/18 13:17 18:20 18:20 Creatine Kinase 58 CK-MB (CK-2) 1.53 1.59 Troponin I 0.079 0.081 NT-Pro-B Natriuret Pep Impressions: Gastric Emptying Nuclear Medicine 01/30/18 00:00 IMPRESSION: No emptying of the administered activity from the stomach over 2 hours. KUB X-Ray 01/30/18 14:46 IMPRESSION: NO RADIOGRAPHIC EVIDENCE FOR ACUTE ABDOMINAL DISEASE. Abdomen/Pelvis CT 01/31/18 00:00 IMPRESSION: 1. No evidence pancreatic mass or biliary obstruction on this noncontrast exam. 2. Few loops of mildly dilated jejunum measuring up to 3.0 cm with associated gas fluid levels and decompressed distal bowel. Findings may represent early ob structive process. 3. Cardiomegaly. Assessment & Plan - Diagnosis (1) Diabetic gastroparesis Is this a current diagnosis for this admission?: Yes (2) Small bowel obstruction Is this a current diagnosis for this admission?: Yes Plan: will place ng now pt then will have a f/u ct with oral gastrografin - Time Time Spent with patient: 25-34 minutes
--- NOTE | 2018-02-02 13:14 | RADIOLOGY REPORT (SQ) ---
EXAM DESCRIPTION: KUB/ABDOMEN (SINGLE VIEW) COMPLETED DATE/TIME: 02/02/2018 1:02 pm REASON FOR STUDY: Check Placement of NG Tube E09.21 DRUG/CHEM DIABETES MELLITUS W DIABETIC NEPHROPA THY I42.0 DILATED CARDIOMYOPATHY COMPARISON: 01/30/2018. NUMBER OF VIEWS: One view. TECHNIQUE: Supine radiographic image of the abdomen acquired. LIMITATIONS: None. FINDINGS: BOWEL GAS PATTERN: Normal bowel gas pattern. No dilated loops. CALCIFICATIONS: No suspicious calcifications. SOFT TISSUES: No gross mass or suggestion of organomegaly. HARDWARE: Nasogastric tube with the tip in stomach. BONES: No acute fracture. No worrisome bone lesions. OTHER: No other significant finding. IMPRESSION: THE TIP OF THE NASOGASTRIC TUBE IN THE STOMACH. TECHNICAL DOCUMENTATION: JOB ID: [id number] [employer]- All Rights Reserved Reading location - IP/workstation name: [email or web address]
--- NOTE | 2018-02-02 15:23 | PDOC PROGRESS REPORT ---
Subjective Progress Note for:: 02/02/18 Subjective:: Patient was sitting up in her bed at the time of examination. She had just had a doppler finished. She also just had an NG tube placed for a small bowel obstruction. She was schedule to get an abdominal CT with IV and oral contrast. Patients nausea has slightly improved. No chest pain or SOB. Reason For Visit: PERSISTENT VOMITING ? DIABETES Physical Exam Vital Signs: Temp Pulse Resp BP Pulse Ox 97.6 F 67 22 H 137/64 H 96 02/02/18 12:00 02/02/18 12:00 02/02/18 12:00 02/02/18 12:00 02/02/18 12:00 Intake & Output 02/01/18 02/02/18 02/03/18 06:59 06:59 06:59 Intake Total 1140 950 Output Total 4100 Balance 1140 -3150 Weight 109.9 kg 106.1 kg General appearance: PRESENT: no acute distress, well-developed, well-nourished Head exam: PRESENT: other - -NG tube in her nose Mouth exam: PRESENT: neck supple, other - NG tube Neck exam: ABSENT: JVD, tracheal deviation Respiratory exam: PRESENT: clear to auscultation charity. ABSENT: crackles, rales, rhonchi, wheezes Cardiovascular exam: PRESENT: +S1, +S2, systolic murmur Extremities exam: ABSENT: pedal edema, tenderness, +1 edema, +2 edema Musculoskeletal exam: PRESENT: normal inspection. ABSENT: tenderness Neurological exam: PRESENT: alert, awake, oriented to person, oriented to place, oriented to time, oriented to situation Skin exam: PRESENT: dry, intact, warm Results Laboratory Results: 02/02/18 03:54 02/02/18 07:20 02/02/18 02/02/18 02/02/18 03:54 03:54 07:20 WBC 14.5 H RBC 6.20 H Hgb 16.3 H Hct 50.7 H MCV 82 MCH 26.3 L MCHC 32.2 RDW 18.0 H Plt Count 118 L Seg Neutrophils % 76.4 Lymphocytes % 12.9 L Monocytes % 10.0 Eosinophils % 0.3 Basophils % 0.4 Absolute Neutrophils 11.1 H Absolute Lymphocytes 1.9 Absolute Monocytes 1.5 H Absolute Eosinophils 0.0 Absolute Basophils 0.1 Sodium Cancelled 138.4 Potassium Cancelled 3.9 Chloride Cancelled 87 L Carbon Dioxide Cancelled 29 Anion Gap Cancelled 22 H BUN Cancelled 39 H Creatinine Cancelled 6.95 H Est GFR ( Amer) Cancelled 7 L Est GFR (Non-Af Amer) Cancelled 6 L Glucose Cancelled 248 H Calcium Cancelled 8.7 Total Bilirubin Cancelled 2.2 H AST Cancelled 338 H ALT Cancelled 204 H Alkaline Phosphatase Cancelled 385 H Total Protein Cancelled 9.3 H Albumin Cancelled 4.7 01/30/18 01/30/18 01/30/18 22:08 22:08 22:08 Creatine Kinase 48 CK-MB (CK-2) 0.76 Troponin I 0.054 NT-Pro-B Natriuret Pep [id number] H 01/31/18 01/31/18 01/31/18 04:27 04:27 13:17 Creatine Kinase 47 72 CK-MB (CK-2) 0.96 Troponin I 0.068 NT-Pro-B Natriuret Pep 01/31/18 01/31/18 01/31/18 13:17 18:20 18:20 Creatine Kinase 58 CK-MB (CK-2) 1.53 1.59 Troponin I 0.079 0.081 NT-Pro-B Natriuret Pep Impressions: Gastric Emptying Nuclear Medicine 01/30/18 00:00 IMPRESSION: No emptying of the administered activity from the stomach over 2 hours. Abdomen/Pelvis CT 01/31/18 00:00 IMPRESSION: 1. No evidence pancreatic mass or biliary obstruction on this noncontrast exam. 2. Few loops of mildly dilated jejunum measuring up to 3.0 cm with associated gas fluid levels and decompressed distal bowel. Findings may represent early obstructive process. 3. Cardiomegaly. KUB X-Ray 02/02/18 11:00 IMPRESSION: THE TIP OF THE NASOGASTRIC TUBE IN THE STOMACH. Assessment & Plan - Diagnosis (1) Small bowel obstruction Is this a current diagnosis for this admission?: Yes Plan: currently has an NG tube placed. An abdominal CT with IV and oral contrast was to be scheduled for today. I strongly recommend against the contrast use until tomorrow since dialysis can not be done until tomorrow. Recommend doing the study early in the morning so that the patient can dialyze with the 2nd shift at 12. (2) Diabetic gastroparesis Is this a current diagnosis for this admission?: Yes Plan: on reglan (3) End stage chronic kidney disease Is this a current diagnosis for this admission?: Yes Plan: will look to arrange for dialysis tomorrow. (4) Anemia in chronic kidney disease Qualifiers: Chronic kidney disease stage: stage 3 (moderate) Qualified Code(s): N18.3 - Chronic kidney disease, stage 3 (moderate); D63.1 - Anemia in chronic kidney disease; D63.1 - Anemia in chronic kidney disease Plan: currently not receiving epogen (5) CHF (congestive heart failure) Qualifiers: Qualified Code(s): I50.43 - Acute on chronic combined systolic (congestive) and diastolic (congestive) heart failure Plan: Stable currently (6) Hypertension Plan: controlled
[2018-02-02] MEDS ORDERED: MORPHINE SULFATE 10 MG/ML INJ IV PRN (16:40)
[2018-02-02] MEDS: ONDANSETRON HCL INJ/PF 4 MG/2 ML SDV IV PRN (17:51)
--- NOTE | 2018-02-02 21:27 | PDOC PROGRESS REPORT ---
Subjective Progress Note for:: 02/02/18 Subjective:: Patient seen by the bedside, She was seen by the surgeon she has NG tube to suction Reason For Visit: PERSISTENT VOMITING ? DIABETES Physical Exam Vital Signs: Temp Pulse Resp BP Pulse Ox 97.5 F 70 14 145/69 H 99 02/02/18 16:00 02/02/18 16:00 02/02/18 16:00 02/02/18 16:00 02/02/18 16:00 Intake & Output 02/01/18 02/02/18 02/03/18 06:59 06:59 06:59 Intake Total 1140 950 Output Total 4100 700 Balance 1140 -3150 -700 Weight 109.9 kg 106.1 kg General appearance: PRESENT: no acute distress Eye exam: PRESENT: PERRLA Respiratory exam: PRESENT: clear to auscultation charity Cardiovascular exam: PRESENT: +S1, +S2 GI/Abdominal exam: PRESENT: soft Neurological exam: PRESENT: alert Results Laboratory Results: 02/02/18 03:54 02/02/18 07:20 02/02/18 02/02/18 02/02/18 03:54 03:54 07:20 WBC 14.5 H RBC 6.20 H Hgb 16.3 H Hct 50.7 H MCV 82 MCH 26.3 L MCHC 32.2 RDW 18.0 H Plt Count 118 L Seg Neutrophils % 76.4 Lymphocytes % 12.9 L Monocytes % 10.0 Eosinophils % 0.3 Basophils % 0.4 Absolute Neutrophils 11.1 H Absolute Lymphocytes 1.9 Absolute Monocytes 1.5 H Absolute Eosinophils 0.0 Absolute Basophils 0.1 Sodium Cancelled 138.4 Potassium Cancelled 3.9 Chloride Cancelled 87 L Carbon Dioxide Cancelled 29 Anion Gap Cancelled 22 H BUN Cancelled 39 H Creatinine Cancelled 6.95 H Est GFR ( Amer) Cancelled 7 L Est GFR (Non-Af Amer) Cancelled 6 L Glucose Cancelled 248 H Calcium Cancelled 8.7 Total Bilirubin Cancelled 2.2 H AST Cancelled 338 H ALT Cancelled 204 H Alkaline Phosphatase Cancelled 385 H Total Protein Cancelled 9.3 H Albumin Cancelled 4.7 01/30/18 01/30/18 01/30/18 22:08 22:08 22:08 Creatine Kinase 48 CK-MB (CK-2) 0.76 Troponin I 0.054 NT-Pro-B Natriuret Pep [id number] H 01/31/18 01/31/18 01/31/18 04:27 04:27 13:17 Creatine Kinase 47 72 CK-MB (CK-2) 0.96 Troponin I 0.068 NT-Pro-B Natriuret Pep 01/31/18 01/31/18 01/31/18 13:17 18:20 18:20 Creatine Kinase 58 CK-MB (CK-2) 1.53 1.59 Troponin I 0.079 0.081 NT-Pro-B Natriuret Pep Impressions: Gastric Emptying Nuclear Medicine 01/30/18 00:00 IMPRESSION: No emptying of the administered activity from the stomach over 2 hours. Abdomen/Pelvis CT 01/31/18 00:00 IMPRESSION: 1. No evidence pancreatic mass or biliary obstruction on this noncontrast exam. 2. Few loops of mildly dilated jejunum measuring up to 3.0 cm with associated gas fluid levels and decompressed distal bowel. Findings may represent early obstructive process. 3. Cardiomegaly. KUB X-Ray 02/02/18 11:00 IMPRESSION: THE TIP OF THE NASOGASTRIC TUBE IN THE STOMACH. Assessment & Plan - Diagnosis (1) Small bowel obstruction Is this a current diagnosis for this admission?: Yes Plan: NG tube to suction,patient will ultimately need laparatomy (2) Intractable vomiting Qualifiers: Nausea presence: with nausea Is this a current diagnosis for this admission?: Yes (3) Diabetic gastroparesis Is this a current diagnosis for this admission?: Yes (4) Obstructive jaundice Is this a current diagnosis for this admission?: Yes (5) End stage chronic kidney disease Is this a current diagnosis for this admission?: Yes
[2018-02-03] MEDS: ONDANSETRON HCL INJ/PF 4 MG/2 ML SDV IV PRN ×3 (00:36→12:26)
[2018-02-03 05:09] LABS: ABSOLUTE BASOPHILS # (AUTO) 0.1 10^3/uL (0.0-0.2); ABSOLUTE EOSINOPHILS # (AUTO) 0.1 10^3/uL (0.0-0.6); ABSOLUTE LYMPHOCYTES (AUTO) 2.3 10^3/uL (0.5-4.7); ABSOLUTE MONOCYTES (AUTO) 1.4 10^3/uL (0.1-1.4); ABSOLUTE NEUT (AUTO) 8.6 10^3/uL (1.7-8.2); BASOPHILS % (AUTO) 0.5 % (0-2); EOSINOPHILS % (AUTO) 0.4 % (0-6); HEMATOCRIT 43.9 % (36.0-47.0); LYMPHOCYTES % (AUTO) 18.1 % (13-45); MEAN CORPUSCULAR HEMOGLOBIN 26.1 pg (27.0-33.4); MEAN CORPUSCULAR HGB CONC 32.2 g/dL (32.0-36.0); MEAN CORPUSCULAR VOLUME 81 fl (80-97); MONOCYTES % (AUTO) 11.5 % (3-13); PLATELET COUNT 132 10^3/uL (150-450); RED BLOOD COUNT 5.42 10^6/uL (3.72-5.28); SEGMENTED NEUTROPHILS % (AUTO) 69.5 % (42-78); TOTAL CELLS COUNTED % (AUTO) 100 %; WHITE BLOOD COUNT 12.4 10^3/uL (4.0-10.5)
[2018-02-03 05:10] LABS: HEMOGLOBIN 14.1 g/dL (12.0-15.5)
[2018-02-03 05:27] LABS: ALANINE AMINOTRANSFERASE 158 U/L (9-52); ALBUMIN 3.8 g/dL (3.5-5.0); ALKALINE PHOSPHATASE 284 U/L (38-126); ASPARTATE AMINO TRANSFERASE 178 U/L (14-36); BILIRUBIN,DIRECT 1.2 mg/dL (0.0-0.4); BILIRUBIN,TOTAL 1.6 mg/dL (0.2-1.3); BLOOD UREA NITROGEN 55 mg/dL (7-20); CALCIUM 7.4 mg/dL (8.4-10.2); GLUCOSE 217 mg/dL (75-110); IRON(TIBC) 48.6 ug/dL (37-170); POTASSIUM 3.4 mmol/L (3.6-5.0); TOTAL PROTEIN 7.3 g/dL (6.3-8.2)
[2018-02-03] MEDS: HEPARIN SOD (PORCINE) 5,000 UNIT/ML 1 ML SYRINGE SUBCUT SCH ×2 (05:28→14:00)
[2018-02-03 05:33] LABS: CARBON DIOXIDE 31 mmol/L (22-30); CHLORIDE 86 mmol/L (98-107); SODIUM 137.4 mmol/L (137-145)
[2018-02-03 05:50] LABS: ANION GAP 20 (5-19)
[2018-02-03] MEDS ORDERED: SUCCINYLCHOLINE CHLORIDE INJ 200 MG/10 ML VIAL ONE (08:25)
[2018-02-03] MEDS ORDERED: ROCURONIUM BROMIDE INJ 50 MG/5 ML VIAL IV ONE (08:25)
--- NOTE | 2018-02-03 08:50 | XCELERA REPORT ---
[address] [address] Lower Extremity Arterial Evaluation Name: MARIOLA GAR Age: 58 yrs Gender: Female : 1960 Patient Status: Inpatient Patient Location: [address] [place] [address] Study Date: 02/02/2018 02:29 PM Procedure: A color flow and duplex scan of the lower extremity arteries was performed bilaterally with velocity and waveform anaylsis. Reason For Study: LE discoloration, neuropathy Ordering Physician: ROBERTO SALDANA Performed By: Kassidy López Measurements and Calculations Right Left COMPUTATIONAL CHEMIST PSV 126.3 124.1 cm/sec Prox PFA PSV -86.9 60.9 cm/sec Prox SFA PSV 73.5 119.4 cm/sec Mid SFA PSV -132.7 -90.4 cm/sec Dist SFA PSV -111.7 -78.1 cm/sec Prox Pop A PSV 66.8 104.8 cm/sec Dist HEMANT PSV 20.2 13.8 cm/sec Dist ACCIDENT EXAMINER PSV 27.5 39.1 cm/sec Vito Pedis PSV 19.6 17.6 cm/sec Right Side Arterial Evaluation Normal velocity and biphasic waveforms noted from the Common Femoral artery to the Popliteal. . Biphasic with decreased velocity in the infrageniculate vessels. Extensive calcification noted on nelson scale. Ankle Brachial index shows non compressible vessels. Left Side Arterial Evaluation Normal velocity and triphasic waveforms noted from the Common Femoral artery to the Posterior Tibial. . Biphasic with normal velocity in the Deep Femoral. Monophasic with decreased velocity in the Anterior Tibial artery. Extensive calcification noted on nelson scale. Ankle Brachial index shows non compressible vessels. Interpretation Summary Moderate hemodynamically significant disease on the right. Mild hemodynamically significant disease on the right. Good flow in the Posterior Tibial compensating for severe disease in the Anterior Tibial. SHOSHANA's non compressible, concordant with finding of extensive vessels wall calcification. : ROBERTO SALDANA > [employer]
--- NOTE | 2018-02-03 09:13 | PDOC PROGRESS REPORT ---
Subjective Progress Note for:: 02/03/18 Subjective:: Patient feels better; denies stool or flatus. Reason For Visit: PERSISTENT VOMITING ? DIABETES Physical Exam Vital Signs: Temp Pulse Resp BP Pulse Ox 97.9 F 69 17 138/55 H 94 02/03/18 07:35 02/03/18 07:35 02/03/18 07:35 02/03/18 07:35 02/03/18 07:35 Intake & Output 02/02/18 02/03/18 02/04/18 06:59 06:59 06:59 Intake Total 950 0 Output Total 4100 1999 Balance -3150 -1999 Weight 106.1 kg 106.2 kg General appearance: PRESENT: no acute distress, other - Sitting in a chair nasogastric tube with serosanguineous drainage GI/Abdominal exam: PRESENT: other - No significant abdominal tenderness. Results Laboratory Results: 02/03/18 03:55 02/03/18 03:55 02/03/18 02/03/18 03:55 03:55 WBC 12.4 H RBC 5.42 H Hgb 14.1 D Hct 43.9 MCV 81 MCH 26.1 L MCHC 32.2 RDW 18.0 H Plt Count 132 L Seg Neutrophils % 69.5 Lymphocytes % 18.1 Monocytes % 11.5 Eosinophils % 0.4 Basophils % 0.5 Absolute Neutrophils 8.6 H Absolute Lymphocytes 2.3 Absolute Monocytes 1.4 Absolute Eosinophils 0.1 Absolute Basophils 0.1 Sodium 137.4 Potassium 3.4 L Chloride 86 L Carbon Dioxide 31 H Anion Gap 20 H BUN 55 H Creatinine 8.14 H Est GFR ( Amer) 6 L Est GFR (Non-Af Amer) 5 L Glucose 217 H Calcium 7.4 L Iron 48.6 TIBC 204 L % Saturation 24 Ferritin 2470.00 H Total Bilirubin 1.6 H AST 178 H ALT 158 H Alkaline Phosphatase 284 H Total Protein 7.3 Albumin 3.8 01/30/18 01/30/18 01/30/18 22:08 22:08 22:08 Creatine Kinase 48 CK-MB (CK-2) 0.76 Troponin I 0.054 NT-Pro-B Natriuret Pep 44625 H 01/31/18 01/31/18 01/31/18 04:27 04:27 13:17 Creatine Kinase 47 72 CK-MB (CK-2) 0.96 Troponin I 0.068 NT-Pro-B Natriuret Pep 01/31/18 01/31/18 01/31/18 13:17 18:20 18:20 Creatine Kinase 58 CK-MB (CK-2) 1.53 1.59 Troponin I 0.079 0.081 NT-Pro-B Natriuret Pep Impressions: Gastric Emptying Nuclear Medicine 01/30/18 00:00 IMPRESSION: No emptying of the administered activity from the stomach over 2 hours. Abdomen/Pelvis CT 01/31/18 00:00 IMPRESSION: 1. No evidence pancreatic mass or biliary obstruction on this noncontrast exam. 2. Few loops of mildly dilated jejunum measuring up to 3.0 cm with associated gas fluid levels and decompressed distal bowel. Findings may represent early obstructive process. 3. Cardiomegaly. KUB X-Ray 02/02/18 11:00 IMPRESSION: THE TIP OF THE NASOGASTRIC TUBE IN THE STOMACH. Assessment & Plan - Diagnosis (1) Diabetic gastroparesis Is this a current diagnosis for this admission?: Yes Plan: Clinically improved; normal drainage from nasogastric tube this morning; Recommendations: 1. Complete p.o. contrast and obtain CT scan of the abdomen and pelvis 2. Low likelihood of patient requiring general surgical exploration
--- NOTE | 2018-02-03 10:45 | RADIOLOGY REPORT (SQ) ---
EXAM DESCRIPTION: CT ABD/PELVIS WITH IV ORAL COMPLETED DATE/TIME: 02/03/2018 10:21 am REASON FOR STUDY: abdominal pain, possible obstruction E09.21 DRUG/CHEM DIABETES MELLITUS W DIABETI C NEPHROPATHY I42.0 DILATED CARDIOMYOPATHY COMPARISON: CT abdomen pelvis 02/01/2018, 01/11/2018, 06/27/2012, 05/14/2011 Abdominal radiographs 02/02/2018, 01/30/2018, 01/18/2018, 01/11/2018 Gastric emptying study 01/31/2018 TECHNIQUE: CT scan of the abdomen and pelvis performed using helical scanning technique with dynamic intravenous contrast injection. Oral contrast given through the patient's nasogastric tube. Images reviewed with lung, soft tissue, and bone windows. Reconstructed coronal and sagittal MPR images rev iewed. Delayed images for evaluation of the urinary system also acquired. All images stored on PACS. All CT scanners at this facility use dose modulation, iterative reconstruction, and/or weight based d osing when appropriate to reduce radiation dose to as low as reasonably achievable (ALARA). [facility]: Dose Right [facility]: CareDose [facility]: Dose Right [facility]: Teradose 4D [facility]: Robot App Store CONTRAST TYPE AND DOSE: contrast/concentration: Isovue 350.00 mg/ml; Total Contrast Delivered: 99.0 ml; Total Saline Delivered: 66.0 ml RENAL FUNCTION: Patient on dialysis RADIATION DOSE: CT Rad equipment meets quality standard of care and radiation dose reduction techniq ues were employed. CTDIvol: 23.8 - 24.0 mGy. DLP: 3620 mGy-cm.. LIMITATIONS: None. FINDINGS: A nasogastric tube is present with the tip and side port in the stomach. The stomach, duodenum, and jejunum are distended. There is a transition point in the midline pelvis, where a distended small bowel loop is present without oral contrast worrisome for short closed loop obstruction in the midline pelvis. Trace free pelvic fluid. No free intraperitoneal air. Distal small bowel, colon are decompressed. Findings called Dr. Benton, 1030 hours 02/03/2018 LOWER CHEST: Cardiomegaly. No pleural effusion. No basilar infiltrates. LIVER: Normal size. No masses. No dilated ducts. SPLEEN: Normal size. 1 cm hemangioma sub- diaphragmatic surface spleen. PANCREAS: No masses. No significant calcifications. No adjacent inflammation or peripancreatic fluid collections. Pancreatic duct not dilated. GALLBLADDER: Surgically absent ADRENAL GLANDS: Right adrenalectomy. Left adrenal gland unremarkable RIGHT KIDNEY AND URETER: No solid masses. No significant calcifications. No hydronephrosis or hyd roureter. LEFT KIDNEY AND URETER: No solid masses. No significant calcifications. No hydronephrosis or hydr oureter. AORTA AND VESSELS: No aneurysm. No dissection. Renal arteries, SMA, celiac without stenosis. RETROPERITONEUM: No retroperitoneal adenopathy, hemorrhage or masses. BOWEL AND PERITONEAL CAVITY: As above APPENDIX: Not identified PELVIS: No mass. Trace cul-de-sac free fluid. Normal bladder. Post hysterectomy ABDOMINAL WALL: No masses. No hernias. BONES: Advanced degenerative disc changes lower lumbar spine OTHER: No other significant finding. IMPRESSION: Small bowel obstruction with transition point in the midline pelvis. COMMENT: Pertinent findings on the imaging study reported as a CRITICAL RESULT to PATSELASME at10:3 0 on 02/03/2018. Category of Critical Result: SMALL BOWEL OBSTRUCTION TECHNICAL DOCUMENTATION: JOB ID: [id number] Quality ID # [id number]: Final reports with documentation of one or more dose reduction techniques (e.g., Au tomated exposure control, adjustment of the mA and/or kV according to patient size, use of iterative reconstruction technique) 2010 [employer]- All Rights Reserved Reading location - IP/workstation name: [email or web address]
--- NOTE | 2018-02-03 10:46 | RADIOLOGY REPORT (SQ) ---
EXAM DESCRIPTION: U/S ABDOMEN LTD W/DOPPLER COMPLETED DATE/TIME: 02/03/2018 10:32 am REASON FOR STUDY: abdominal pain. CT scan this AM at 7-8 AM E09.21 DRUG/CHEM DIABETES MELLITUS W DI ABETIC NEPHROPATHY I42.0 DILATED CARDIOMYOPATHY COMPARISON: CT abdomen pelvis 02/01/2018, 06/14/2017 TECHNIQUE: Dynamic and static grayscale images acquired of the abdomen and recorded on PACS. Additio nal selected color Doppler and spectral images recorded. LIMITATIONS: Midline bowel gas FINDINGS: PANCREAS: Midline pancreas unremarkable LIVER: No masses. Echotexture normal. LIVER VASCULATURE: Normal directional flow of the main portal vein and hepatic veins. GALLBLADDER: Surgically absent ULTRASOUND-DETECTED CANTRELL'S SIGN: Not applicable INTRAHEPATIC DUCTS AND COMMON DUCT: CBD and intrahepatic ducts normal caliber. No filling defects. INFERIOR VENA CAVA: Normal flow. AORTA: No aneurysm. RIGHT KIDNEY: Normal size. Normal echogenicity. No solid or suspicious masses. No hydronephrosis. No calcifications. PERITONEAL AND RIGHT PLEURAL SPACE: No ascites or effusions. OTHER: No other significant findings. IMPRESSION: Post cholecystectomy. Otherwise unremarkable study TECHNICAL DOCUMENTATION: JOB ID: [id number] [employer]- All Rights Reserved Reading location - IP/workstation name: [email or web address]
[2018-02-03] MEDS: VALSARTAN 160 MG TABLET PO SCH (11:44)
[2018-02-03] MEDS: HYDROCHLOROTHIAZIDE 25 MG TABLET PO SCH (11:44)
[2018-02-03] MEDS: METOPROLOL SUCCINATE 50 MG TAB.SR.24H PO SCH (11:45)
[2018-02-03] MEDS: AMLODIPINE BESYLATE 10 MG TABLET PO SCH (11:45)
--- NOTE | 2018-02-03 16:06 | PDOC PROGRESS REPORT ---
Subjective Progress Note for:: 02/03/18 Subjective:: She is currently being seen on dialysis which she is undergoing without any issues. She denies any history of chest pain or shortness of breath. Vital signs are stable. Labs and medications were reviewed with the patient. Patient does have some pain in her abdomen and is currently uncomfortable with the NG tube. CT with contrast was done and found that there was concern for a closed loop obstruction of the small bowel. She is scheduled for surgery after dialysi s. Reason For Visit: PERSISTENT VOMITING ? DIABETES Physical Exam Vital Signs: Temp Pulse Resp BP Pulse Ox 97.7 F 72 18 139/58 H 98 02/03/18 11:27 02/03/18 14:00 02/03/18 11:27 02/03/18 11:27 02/03/18 11:27 Intake & Output 02/02/18 02/03/18 02/04/18 06:59 06:59 06:59 Intake Total 950 0 Output Total 4100 2000 Balance -3150 -2000 Weight 106.1 kg 106.2 kg General appearance: PRESENT: mild distress, morbidly obese Mouth exam: PRESENT: moist, neck supple Neck exam: ABSENT: JVD, tracheal deviation Respiratory exam: PRESENT: clear to auscultation charity. ABSENT: crackles, rales, rhonchi, wheezes Cardiovascular exam: PRESENT: +S1, +S2, systolic murmur GI/Abdominal exam: PRESENT: tenderness. ABSENT: normal bowel sounds Extremities exam: ABSENT: tenderness, +1 edema, +2 edema Musculoskeletal exam: PRESENT: normal inspection. ABSENT: tenderness Neurological exam: PRESENT: alert, awake, oriented to person, oriented to place, oriented to time, oriented to situation Skin exam: PRESENT: dry, intact, warm. ABSENT: cyanosis Results Laboratory Results: 02/03/18 03:55 02/03/18 03:55 02/03/18 02/03/18 03:55 03:55 WBC 12.4 H RBC 5.42 H Hgb 14.1 D Hct 43.9 MCV 81 MCH 26.1 L MCHC 32.2 RDW 18.0 H Plt Count 132 L Seg Neutrophils % 69.5 Lymphocytes % 18.1 Monocytes % 11.5 Eosinophils % 0.4 Basophils % 0.5 Absolute Neutrophils 8.6 H Absolute Lymphocytes 2.3 Absolute Monocytes 1.4 Absolute Eosinophils 0.1 Absolute Basophils 0.1 Sodium 137.4 Potassium 3.4 L Chloride 86 L Carbon Dioxide 31 H Anion Gap 20 H BUN 55 H Creatinine 8.14 H Est GFR ( Amer) 6 L Est GFR (Non-Af Amer) 5 L Glucose 217 H Calcium 7.4 L Iron 48.6 TIBC 204 L % Saturation 24 Ferritin 2470.00 H Total Bilirubin 1.6 H AST 178 H ALT 158 H Alkaline Phosphatase 284 H Total Protein 7.3 Albumin 3.8 01/30/18 01/30/18 01/30/18 22:08 22:08 22:08 Creatine Kinase 48 CK-MB (CK-2) 0.76 Troponin I 0.054 NT-Pro-B Natriuret Pep 36344 H 01/31/18 01/31/18 01/31/18 04:27 04:27 13:17 Creatine Kinase 47 72 CK-MB (CK-2) 0.96 Troponin I 0.068 NT-Pro-B Natriuret Pep 01/31/18 01/31/18 01/31/18 13:17 18:20 18:20 Creatine Kinase 58 CK-MB (CK-2) 1.53 1.59 Troponin I 0.079 0.081 NT-Pro-B Natriuret Pep Impressions: Gastric Emptying Nuclear Medicine 01/30/18 00:00 IMPRESSION: No emptying of the administered activity from the stomach over 2 hours. KUB X-Ray 02/02/18 11:00 IMPRESSION: THE TIP OF THE NASOGASTRIC TUBE IN THE STOMACH. Abdomen Ultrasound 02/03/18 00:00 IMPRESSION: Post cholecystectomy. Otherwise unremarkable study Abdomen/Pelvis CT 02/03/18 07:00 IMPRESSION: Small bowel obstruction with transition point in the midline pelvis. Assessment & Plan - Diagnosis (1) Small bowel obstruction Is this a current diagnosis for this admission?: Yes Plan: has surgery lined up for after dialysis. (2) Diabetic gastroparesis Is this a current diagnosis for this admission?: Yes Plan: on reglan (3) End stage chronic kidney disease Is this a current diagnosis for this admission?: Yes Plan: She is currently being seen on dialysis which she is undergoing without any issues. She denies any history of chest pain or shortness of breath. Vital signs are stable. Labs and medications were reviewed with the patient. Orders were discussed with supervising nurseDeedee. (4) Anemia in chronic kidney disease Qualifiers: Chronic kidney disease stage: stage 3 (moderate) Qualified Code(s): N18.3 - Chronic kidney disease, stage 3 (moderate); D63.1 - Anemia in chronic kidney disease; D63.1 - Anemia in chronic kidney disease Plan: currently not receiving epogen (5) CHF (congestive heart failure) Qualifiers: Qualified Code(s): I50.43 - Acute on chronic combined systolic (congestive) and diastolic (congestive) heart failure Plan: Stable currently (6) Hypertension Plan: controlled
[2018-02-03] MEDS ORDERED: BUPIVACAINE INJ/PF LIPOSOME/PF 266 MG/20 ML SDV ONE (16:55)
[2018-02-03] MEDS ORDERED: FENTANYL CITRATE INJ/PF 250 MCG/5 ML AMPULE ONE ×2 (17:44→19:08)
[2018-02-03] MEDS ORDERED: MORPHINE SULFATE 10 MG/ML INJ ONE ×2 (17:45→19:09)
[2018-02-03] MEDS ORDERED: ACETAMINOPHEN 0 MG/0 ML RTUPB IV ONE (17:45)
[2018-02-03] MEDS ORDERED: PROPOFOL INJ 200 MG/20 ML VIAL IV ONE (17:45)
[2018-02-03] MEDS ORDERED: MIDAZOLAM 2 MG/2 ML INJ ONE (17:45)
[2018-02-03 18:12] LABS: INTERNATIONAL RATION (INR) 1.28; PARTIAL THROMBOPLASTIN TIME 28.6 SEC (23.5-35.8); PROTHROMBIN TIME 16.6 SEC (11.4-15.4)
--- NOTE | 2018-02-03 18:12 | RADIOLOGY REPORT (SQ) ---
EXAM DESCRIPTION: CHEST SINGLE VIEW COMPLETED DATE/TIME: 02/03/2018 5:45 pm REASON FOR STUDY: preop E09.21 DRUG/CHEM DIABETES MELLITUS W DIABETIC NEPHROPATHY I42.0 DILATED CA RDIOMYOPATHY COMPARISON: 12/13/2017 NUMBER OF VIEWS: One view. TECHNIQUE: Single frontal radiographic view of the chest acquired. LIMITATIONS: None. FINDINGS: LUNGS AND PLEURA: No opacities, masses or pneumothorax. No pleural effusion. MEDIASTINUM AND HILAR STRUCTURES: No masses. Contour normal. HEART AND VASCULAR STRUCTURES: Heart enlarged without failure. Normal vasculature. BONES: No acute findings. HARDWARE: Left-sided vascular stent. Nasogastric tube tip in the stomach. OTHER: No other significant finding. IMPRESSION: HEART ENLARGED WITHOUT FAILURE. NO OTHER SIGNIFICANT RADIOGRAPHIC FINDING IN THE CHEST. TECHNICAL DOCUMENTATION: JOB ID: [id number] [employer]- All Rights Reserved Reading location - IP/workstation name: [email or web address]
[2018-02-03 18:28] LABS: ALANINE AMINOTRANSFERASE 137 U/L (9-52); ALBUMIN 3.7 g/dL (3.5-5.0); ALKALINE PHOSPHATASE 267 U/L (38-126); ANION GAP 15 (5-19); ASPARTATE AMINO TRANSFERASE 131 U/L (14-36); BILIRUBIN,DIRECT 1.3 mg/dL (0.0-0.4); BILIRUBIN,TOTAL 1.9 mg/dL (0.2-1.3); CALCIUM 7.9 mg/dL (8.4-10.2); CARBON DIOXIDE 31 mmol/L (22-30); CHLORIDE 95 mmol/L (98-107); GLUCOSE 145 mg/dL (75-110); POTASSIUM 3.4 mmol/L (3.6-5.0); SODIUM 140.5 mmol/L (137-145); TOTAL PROTEIN 7.2 g/dL (6.3-8.2)
[2018-02-03 18:38] LABS: BLOOD UREA NITROGEN 28 mg/dL (7-20)
[2018-02-03] MEDS ORDERED: CEFAZOLIN INJ 1 GM VIAL ONE (18:45)
[2018-02-03] MEDS ORDERED: FENTANYL CITRATE INJ/PF 100 MCG/2 ML AMPUL IV PRN ×3 (18:55)
[2018-02-03] MEDS ORDERED: MEPERIDINE HCL/PF INJ 25 MG/1 ML DISP.SYRIN IV PRN (18:55)
[2018-02-03] MEDS ORDERED: MORPHINE SULFATE 10 MG/ML INJ IV PRN (18:55)
[2018-02-03] MEDS ORDERED: PROMETHAZINE HCL INJ 25 MG/1 ML VIAL IV PRN ×2 (18:55)
[2018-02-03] MEDS ORDERED: DIPHENHYDRAMINE HCL 50 MG/ML VIAL IV PRN (18:55)
[2018-02-03] MEDS ORDERED: NORMAL SALINE INJ/PF 0.9% 10 ML SDV IV PRN (19:38)
--- NOTE | 2018-02-03 19:49 | Operative Report ---
Operative Report DATE OF SURGERY: 02/03/18 PREOPERATIVE DIAGNOSIS: 1. End-stage renal failure. 2. Small bowel obstructi on POSTOPERATIVE DIAGNOSIS: Same with intra-abdominal adhesions and internal hernia adjacent to the rectum with small bowel incarceration OPERATION: 1. Ultrasound directed insertion of right femoral vein central venous access cath. 2. Exploratory laparotomy. 3. Open lysis of adhesions. 4. Reduction of internal hernia, and closure of hernia defect SURGEON: MARCO SOMMERS ANESTHESIA: GA TISSUE REMOVED OR ALTERED: None COMPLICATIONS: None ESTIMATED BLOOD LOSS: 50 cc INTRAOPERATIVE FINDINGS: See below PROCEDURE: The patient was taken to the preop holding area to the main operating room and general anesthesia was induced. The abdomen was exposed as well as the right groin, clipped of hair. Because of inadequate IV access, a right femoral vein central venous access catheter was threaded into position under ultrasound guidance using Seldinger technique. There was excellent blood flow through all 3 lm. Catheter was secured to the skin with 2-0 silk suture, Biopatch, and sterile dressing. The catheter was used by anesthesia throughout the case without complication The abdomen was exposed again, prepped and draped in sterile fashion. Another surgical timeout was conducted. The abdomen was opened through a standard midline incision above and below the umbilicus going through the previous midline scar in the pelvis consistent with previous hysterectomy. Once we got the peritoneal cavity open, there were dense adhesions between the anterior abdominal wall and the and these adhesions were taken down between a combination of blunt and electrocautery dissection. We establish Bookwalter retractor system and gradually got greater exposure into the peritoneal cavity. There were dense adhesions throughout the small bowel. Eventually we were able to get enough of the omentum out of the pelvis and off of the sigmoid colon to identify the principal problem which was small bowel loop incarcerated in an internal hernia could be aided by an adhesion between the right tube and ovary draped over the rectum and midline and tethered to the lateral pelvic sidewall. The incarcerated loop of small bowel was reduced, and found to be ischemic, but not infarcted. It was allowed to pink up which it did without difficulty. Irrigated the pelvis out nicely and I broke up some of the adhesions affixing the tube to the rectum and left lateral sidewall. At this point because of the difficulty in exposing the pelvis, and my inclination to limit the length of the midline incision, given the fact that we had reduced the hernia, I felt that closure of hernia defect would be appropriate and so this was affected using 2 running 0 Vicryl sutures. This effectively obliterated the cavity that the small bowel had incarcerated itself into along the left side of the rectum. 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 The nasogastric tube appear to be functioning satisfactorily. I felt the operation was complete. Again the previously incarcerated loop of small bowel had pinked up nicely and there was no indication for small bowel resection. Sponge and needle counts are correct. The omentum was returned to the pelvis, and the abdomen closed with 2 running #1 PDS sutures. Skin approximated with sumeet, and 20 cc of full-strength Exparel injected in subcutaneous tissue. Patient remained intubated and taken to the intensive care unit in guarded but stable condition.
[2018-02-03] MEDS: PROPOFOL 1,000 MG/100 ML INFUS..BTL IV PRN ×2 (19:54→23:05)
[2018-02-03] MEDS ORDERED: PROPOFOL 1,000 MG/100 ML INFUS..BTL IV ONE (19:57)
[2018-02-03] MEDS ORDERED: GLUCAGON,HUMAN RECOMB 1 MG INJ SUBCUT PRN (20:09)
[2018-02-03] MEDS ORDERED: DEXTROSE 40% GEL 15 GM TUBE PO PRN ×2 (20:09)
[2018-02-03] MEDS ORDERED: DEXTROSE 50%-WATER 25 GM/50 ML DISP.SYRIN IV PRN ×2 (20:09)
--- NOTE | 2018-02-03 20:18 | PDOC PROGRESS REPORT ---
Subjective Progress Note for:: 02/03/18 Subjective:: Patient had laparotomy today, presently intubated in ICU Reason For Visit: PERSISTENT VOMITING ? DIABETES Physical Exam Vital Signs: Temp Pulse Resp BP Pulse Ox 97.6 F 79 15 141/72 H 100 02/03/18 17:27 02/03/18 17:27 02/03/18 17:27 02/03/18 17:27 02/03/18 20:00 Intake & Output 02/02/18 02/03/18 02/04/18 06:59 06:59 06:59 Intake Total 950 0 0 Output Total 4100 1999 1300 Balance -3150 -1999 -1300 Weight 106.1 kg 106.2 kg General appearance: PRESENT: other - Patient intubated on mechanical ventilation Eye exam: PRESENT: PERRLA Respiratory exam: PRESENT: clear to auscultation [facility] Cardiovascular exam: PRESENT: +S1, +S2 GI/Abdominal exam: PRESENT: soft Results Laboratory Results: 02/03/18 03:55 02/03/18 17:50 02/03/18 02/03/18 02/03/18 03:55 03:55 17:50 WBC 12.4 H RBC 5.42 H Hgb 14.1 D Hct 43.9 MCV 81 MCH 26.1 L MCHC 32.2 RDW 18.0 H Plt Count 132 L Seg Neutrophils % 69.5 Lymphocytes % 18.1 Monocytes % 11.5 Eosinophils % 0.4 Basophils % 0.5 Absolute Neutrophils 8.6 H Absolute Lymphocytes 2.3 Absolute Monocytes 1.4 Absolute Eosinophils 0.1 Absolute Basophils 0.1 Sodium 137.4 140.5 Potassium 3.4 L 3.4 L Chloride 86 L 95 L Carbon Dioxide 31 H 31 H Anion Gap 20 H 15 BUN 55 H 28 H D Creatinine 8.14 H 5.01 H Est GFR ( Amer) 6 L 11 L Est GFR (Non-Af Amer) 5 L 9 L Glucose 217 H 145 H Calcium 7.4 L 7.9 L Iron 48.6 TIBC 204 L % Saturation 24 Ferritin 2470.00 H Total Bilirubin 1.6 H 1.9 H AST 178 H 131 H ALT 158 H 137 H Alkaline Phosphatase 284 H 267 H Total Protein 7.3 7.2 Albumin 3.8 3.7 01/30/18 01/30/18 01/30/18 22:08 22:08 22:08 Creatine Kinase 48 CK-MB (CK-2) 0.76 Troponin I 0.054 NT-Pro-B Natriuret Pep 53662 H 01/31/18 01/31/18 01/31/18 04:27 04:27 13:17 Creatine Kinase 47 72 CK-MB (CK-2) 0.96 Troponin I 0.068 NT-Pro-B Natriuret Pep 01/31/18 01/31/18 01/31/18 13:17 18:20 18:20 Creatine Kinase 58 CK-MB (CK-2) 1.53 1.59 Troponin I 0.079 0.081 NT-Pro-B Natriuret Pep Impressions: Gastric Emptying Nuclear Medicine 01/30/18 00:00 IMPRESSION: No emptying of the administered activity from the stomach over 2 hours. KUB X-Ray 02/02/18 11:00 IMPRESSION: THE TIP OF THE NASOGASTRIC TUBE IN THE STOMACH. Abdomen Ultrasound 02/03/18 00:00 IMPRESSION: Post cholecystectomy. Otherwise unremarkable study Abdomen/Pelvis CT 02/03/18 07:00 IMPRESSION: Small bowel obstruction with transition point in the midline pelvis. Chest X-Ray 02/03/18 17:23 IMPRESSION: HEART ENLARGED WITHOUT FAILURE. NO OTHER SIGNIFICANT RADIOGRAPHIC FINDING IN THE CHEST. Assessment & Plan - Diagnosis (1) Small bowel obstruction Is this a current diagnosis for this admission?: Yes (2) Intractable vomiting Qualifiers: Nausea presence: with nausea Is this a current diagnosis for this admission?: Yes (3) Diabetic gastroparesis Is this a current diagnosis for this admission?: Yes (4) Obstructive jaundice Is this a current diagnosis for this admission?: Yes (5) End stage chronic kidney disease Is this a current diagnosis for this admission?: Yes
--- NOTE | 2018-02-03 20:39 | RADIOLOGY REPORT (SQ) ---
EXAM DESCRIPTION: CHEST SINGLE VIEW COMPLETED DATE/TIME: 02/03/2018 8:11 pm REASON FOR STUDY: post intubation COMPARISON: 02/03/2018 1738 hours EXAM PARAMETERS: NUMBER OF VIEWS: One view TECHNIQUE: Single frontal radiograph of the chest. RADIATION DOSE: N/A LIMITATIONS: None. FINDINGS: TEMPORARY SUPPORT DEVICES:ETT in expected location. NG tube courses below the miller-diaphr agm in to the stomach. LUNGS AND PLEURA: No opacities. No effusions. No masses. No pneumothorax. MEDIASTINUM AND HILAR STRUCTURES: No masses. Contour normal. HEART AND VASCULAR STRUCTURES: Heart is enlarged. Vascular congestion. Aorta normal for age. BONES: No acute findings. OTHER: No other significant finding. IMPRESSION: Cardiac enlargement and vascular congestion. SUPPORT DEVICE(S) IN EXPECTED LOCATIONS. TECHNICAL DOCUMENTATION: JOB ID: [id number] [employer]- All Rights Reserved Reading location - IP/workstation name: [email or web address]
[2018-02-03 20:55] LABS: ARTERIAL BLOOD BASE EXCESS 4.3 mmol/L; ARTERIAL BLOOD H2CO3 0.93 mmol/L (1.05-1.35); ARTERIAL BLOOD HCO3 26.2 mmol/L (20-24); ARTERIAL BLOOD O2 SATURATION 98.9 % (94-98); ARTERIAL BLOOD PH 7.54 (7.35-7.45); ARTERIAL BLOOD PO2 125.2 mmHg (80-100); ARTERIAL BLOOD TOTAL CO2 27.1 mmol/L (21-25); HEMATOCRIT 42.5 % (36.0-47.0); HEMOGLOBIN 13.7 g/dL (12.0-15.5); MEAN CORPUSCULAR HEMOGLOBIN 26.1 pg (27.0-33.4); MEAN CORPUSCULAR HGB CONC 32.2 g/dL (32.0-36.0); MEAN CORPUSCULAR VOLUME 81 fl (80-97); PLATELET COUNT 132 10^3/uL (150-450); RED BLOOD COUNT 5.23 10^6/uL (3.72-5.28); RED CELL DISTRIBUTION WIDTH 17.9 % (11.5-14.0); WHITE BLOOD COUNT 13.6 10^3/uL (4.0-10.5)
[2018-02-03 21:05] LABS: ARTERIAL BLOOD FIO2 40%
[2018-02-03 21:14] LABS: ALANINE AMINOTRANSFERASE 115 U/L (9-52); ALBUMIN 3.3 g/dL (3.5-5.0); ALKALINE PHOSPHATASE 243 U/L (38-126); ANION GAP 18 (5-19); ASPARTATE AMINO TRANSFERASE 114 U/L (14-36); BILIRUBIN,DIRECT 1.3 mg/dL (0.0-0.4); BILIRUBIN,TOTAL 1.8 mg/dL (0.2-1.3); BLOOD UREA NITROGEN 27 mg/dL (7-20); CALCIUM 7.4 mg/dL (8.4-10.2); CARBON DIOXIDE 28 mmol/L (22-30); CHLORIDE 94 mmol/L (98-107); GLUCOSE 163 mg/dL (75-110); PHOSPHORUS 3.7 mg/dL (2.5-4.5); POTASSIUM 3.2 mmol/L (3.6-5.0); SODIUM 139.8 mmol/L (137-145); TOTAL PROTEIN 6.5 g/dL (6.3-8.2)
[2018-02-04] MEDS: HEPARIN SOD (PORCINE) 5,000 UNIT/ML 1 ML SYRINGE SUBCUT SCH ×5 (00:50→23:04)
[2018-02-04] MEDS: NORMAL SALINE 1000 ML 1,000 ML IV PRN ×3 (01:05→23:03)
[2018-02-04] MEDS: PROPOFOL 1,000 MG/100 ML INFUS..BTL IV PRN ×6 (02:19→23:04)
[2018-02-04] MEDS: MORPHINE SULFATE 10 MG/ML INJ IV PRN ×2 (03:25→09:03)
[2018-02-04 05:37] LABS: ABSOLUTE BASOPHILS # (AUTO) 0.1 10^3/uL (0.0-0.2); ABSOLUTE EOSINOPHILS # (AUTO) 0.1 10^3/uL (0.0-0.6); ABSOLUTE LYMPHOCYTES (AUTO) 1.9 10^3/uL (0.5-4.7); ABSOLUTE MONOCYTES (AUTO) 1.7 10^3/uL (0.1-1.4); ARTERIAL BLOOD BASE EXCESS 2.7 mmol/L; ARTERIAL BLOOD FIO2 30%; ARTERIAL BLOOD H2CO3 0.98 mmol/L (1.05-1.35); ARTERIAL BLOOD HCO3 25.2 mmol/L (20-24); ARTERIAL BLOOD O2 SATURATION 97.4 % (94-98); ARTERIAL BLOOD PCO2 32.4 mmHg (35-45); ARTERIAL BLOOD PH 7.51 (7.35-7.45); ARTERIAL BLOOD PO2 87.6 mmHg (80-100); ARTERIAL BLOOD TOTAL CO2 26.2 mmol/L (21-25); BASOPHILS % (AUTO) 0.8 % (0-2); EOSINOPHILS % (AUTO) 0.6 % (0-6); HEMATOCRIT 39.7 % (36.0-47.0); HEMOGLOBIN 12.7 g/dL (12.0-15.5); LYMPHOCYTES % (AUTO) 12.9 % (13-45); MEAN CORPUSCULAR HEMOGLOBIN 26.2 pg (27.0-33.4); MEAN CORPUSCULAR HGB CONC 32.1 g/dL (32.0-36.0); MEAN CORPUSCULAR VOLUME 82 fl (80-97); MONOCYTES % (AUTO) 11.3 % (3-13); PLATELET COUNT 125 10^3/uL (150-450); RED BLOOD COUNT 4.86 10^6/uL (3.72-5.28); RED CELL DISTRIBUTION WIDTH 17.9 % (11.5-14.0); SEGMENTED NEUTROPHILS % (AUTO) 74.4 % (42-78); TOTAL CELLS COUNTED % (AUTO) 100 %; WHITE BLOOD COUNT 14.8 10^3/uL (4.0-10.5)
[2018-02-04 05:55] LABS: BLOOD UREA NITROGEN 29 mg/dL (7-20); CALCIUM 7.4 mg/dL (8.4-10.2); CHLORIDE 95 mmol/L (98-107); GLUCOSE 182 mg/dL (75-110); POTASSIUM 3.1 mmol/L (3.6-5.0)
[2018-02-04 06:01] LABS: ANION GAP 18 (5-19); CARBON DIOXIDE 25 mmol/L (22-30); SODIUM 137.6 mmol/L (137-145)
[2018-02-04] MEDS: VALSARTAN 160 MG TABLET PO SCH (10:37)
[2018-02-04] MEDS: HYDROCHLOROTHIAZIDE 25 MG TABLET PO SCH (10:38)
[2018-02-04] MEDS: AMLODIPINE BESYLATE 10 MG TABLET PO SCH (10:38)
[2018-02-04] MEDS: METOPROLOL SUCCINATE 50 MG TAB.SR.24H PO SCH (10:38)
[2018-02-04] MEDS: FENTANYL CITRATE INJ/PF 100 MCG/2 ML AMPUL IV PRN ×2 (12:28→21:20)
--- NOTE | 2018-02-04 12:37 | PDOC PROGRESS REPORT ---
Subjective Reason For Visit: PERSISTENT VOMITING ? DIABETES Physical Exam Vital Signs: Temp Pulse Resp BP Pulse Ox 97.0 F 64 36 H 133/56 H 100 02/04/18 10:00 02/04/18 10:00 02/04/18 10:00 02/04/18 10:00 02/04/18 11:37 Intake & Output 02/03/18 02/04/18 02/05/18 06:59 06:59 06:59 Intake Total 0 635 115 Output Total 1999 1299 Balance -199966 115 Weight 106.2 kg 102.6 kg Results Laboratory Results: 02/04/18 05:15 02/04/18 05:15 02/03/18 02/03/18 02/03/18 17:50 20:15 20:45 WBC RBC Hgb Hct MCV MCH MCHC RDW Plt Count Seg Neutrophils % Lymphocytes % Monocytes % Eosinophils % Basophils % Absolute Neutrophils Absolute Lymphocytes Absolute Monocytes Absolute Eosinophils Absolute Basophils Carbonic Acid Cancelled 0.93 L HCO3/H2CO3 Ratio Cancelled 28:1 ABG pH Cancelled 7.54 H ABG pCO2 Cancelled 31.0 L ABG pO2 Cancelled 125.2 H ABG HCO3 Cancelled 26.2 H ABG O2 Saturation Cancelled 98.9 H ABG Base Excess Cancelled 4.3 FiO2 Cancelled 40% Sodium 140.5 Potassium 3.4 L Chloride 95 L Carbon Dioxide 31 H Anion Gap 15 BUN 28 H D Creatinine 5.01 H Est GFR ( Amer) 11 L Est GFR (Non-Af Amer) 9 L Glucose 145 H Calcium 7.9 L Phosphorus Magnesium Total Bilirubin 1.9 H AST 131 H ALT 137 H Alkaline Phosphatase 267 H Total Protein 7.2 Albumin 3.7 02/03/18 02/03/18 02/04/18 20:45 20:45 05:15 WBC 13.6 H RBC 5.23 Hgb 13.7 Hct 42.5 MCV 81 MCH 26.1 L MCHC 32.2 RDW 17.9 H Plt Count 132 L Seg Neutrophils % Lymphocytes % Monocytes % Eosinophils % Basophils % Absolute Neutrophils Absolute Lymphocytes Absolute Monocytes Absolute Eosinophils Absolute Basophils Carbonic Acid 0.98 L HCO3/H2CO3 Ratio 25:1 ABG pH 7.51 H ABG pCO2 32.4 L ABG pO2 87.6 ABG HCO3 25.2 H ABG O2 Saturation 97.4 ABG Base Excess 2.7 FiO2 30% Sodium 139.8 Potassium 3.2 L Chloride 94 L Carbon Dioxide 28 Anion Gap 18 BUN 27 H Creatinine 5.04 H Est GFR ( Amer) 11 L Est GFR (Non-Af Amer) 9 L Glucose 163 H Calcium 7.4 L Phosphorus 3.7 Magnesium 1.9 Total Bilirubin 1.8 H AST 114 H ALT 115 H Alkaline Phosphatase 243 H Total Protein 6.5 Albumin 3.3 L 02/04/18 02/04/18 05:15 05:15 WBC 14.8 H RBC 4.86 Hgb 12.7 Hct 39.7 MCV 82 MCH 26.2 L MCHC 32.1 RDW 17.9 H Plt Count 125 L Seg Neutrophils % 74.4 Lymphocytes % 12.9 L Monocytes % 11.3 Eosinophils % 0.6 Basophils % 0.8 Absolute Neutrophils 11.0 H Absolute Lymphocytes 1.9 Absolute Monocytes 1.7 H Absolute Eosinophils 0.1 Absolute Basophils 0.1 Carbonic Acid HCO3/H2CO3 Ratio ABG pH ABG pCO2 ABG pO2 ABG HCO3 ABG O2 Saturation ABG Base Excess FiO2 Sodium 137.6 Potassium 3.1 L Chloride 95 L Carbon Dioxide 25 Anion Gap 18 BUN 29 H Creatinine 6.05 H Est GFR ( Amer) 9 L Est GFR (Non-Af Amer) 7 L Glucose 182 H Calcium 7.4 L Phosphorus Magnesium Total Bilirubin AST ALT Alkaline Phosphatase Total Protein Albumin 01/30/18 01/30/18 01/30/18 22:08 22:08 22:08 Creatine Kinase 48 CK-MB (CK-2) 0.76 Troponin I 0.054 NT-Pro-B Natriuret Pep 40142 H 01/31/18 01/31/18 01/31/18 04:27 04:27 13:17 Creatine Kinase 47 72 CK-MB (CK-2) 0.96 Troponin I 0.068 NT-Pro-B Natriuret Pep 01/31/18 01/31/18 01/31/18 13:17 18:20 18:20 Creatine Kinase 58 CK-MB (CK-2) 1.53 1.59 Troponin I 0.079 0.081 NT-Pro-B Natriuret Pep Impressions: Gastric Emptying Nuclear Medicine 01/30/18 00:00 IMPRESSION: No emptying of the administered activity from the stomach over 2 hours. KUB X-Ray 02/02/18 11:00 IMPRESSION: THE TIP OF THE NASOGASTRIC TUBE IN THE STOMACH. Abdomen Ultrasound 02/03/18 00:00 IMPRESSION: Post cholecystectomy. Otherwise unremarkable study Abdomen/Pelvis CT 02/03/18 07:00 IMPRESSION: Small bowel obstruction with transition point in the midline pelvis. Chest X-Ray 02/03/18 17:23 IMPRESSION: HEART ENLARGED WITHOUT FAILURE. NO OTHER SIGNIFICANT RADIOGRAPHIC FINDING IN THE CHEST. Assessment & Plan - Diagnosis (1) Internal hernia Is this a current diagnosis for this admission?: Yes (2) Small bowel obstruction Is this a current diagnosis for this admission?: Yes - Plan Summary Plan Summary: This is a 58-year-old female status post exploratory laparotomy for small bowel obstruction due to an internal hernia. The patient remains intubated in the intensive care unit. She appears to be hemodynamically stable. Her dressing is intact. Pulmonology and medicine following. Continue supportive care. Continue NG decompression for now.
[2018-02-04] MEDS: MIDAZOLAM 2 MG/2 ML INJ IV PRN (16:46)
--- NOTE | 2018-02-04 21:26 | PDOC PROGRESS REPORT ---
Subjective Progress Note for:: 02/04/18 Subjective:: Patient intubated, status post laparotomy Reason For Visit: PERSISTENT VOMITING ? DIABETES Physical Exam Vital Signs: Temp Pulse Resp BP Pulse Ox 97.9 F 73 31 H 105/56 L 100 02/04/18 20:00 02/04/18 18:00 02/04/18 18:00 02/04/18 18:00 02/04/18 18:00 Intake & Output 02/03/18 02/04/18 02/05/18 06:59 06:59 06:59 Intake Total 0 635 470 Output Total 1999 1299 Balance -1999 -665 470 Weight 106.2 kg 102.6 kg General appearance: PRESENT: no acute distress Respiratory exam: PRESENT: clear to auscultation [facility] Cardiovascular exam: PRESENT: +S1, +S2 GI/Abdominal exam: PRESENT: soft Neurological exam: PRESENT: altered Results Laboratory Results: 02/04/18 05:15 02/04/18 05:15 02/04/18 02/04/18 02/04/18 05:15 05:15 05:15 WBC 14.8 H RBC 4.86 Hgb 12.7 Hct 39.7 MCV 82 MCH 26.2 L MCHC 32.1 RDW 17.9 H Plt Count 125 L Seg Neutrophils % 74.4 Lymphocytes % 12.9 L Monocytes % 11.3 Eosinophils % 0.6 Basophils % 0.8 Absolute Neutrophils 11.0 H Absolute Lymphocytes 1.9 Absolute Monocytes 1.7 H Absolute Eosinophils 0.1 Absolute Basophils 0.1 Carbonic Acid 0.98 L HCO3/H2CO3 Ratio 25:1 ABG pH 7.51 H ABG pCO2 32.4 L ABG pO2 87.6 ABG HCO3 25.2 H ABG O2 Saturation 97.4 ABG Base Excess 2.7 FiO2 30% Sodium 137.6 Potassium 3.1 L Chloride 95 L Carbon Dioxide 25 Anion Gap 18 BUN 29 H Creatinine 6.05 H Est GFR ( Amer) 9 L Est GFR (Non-Af Amer) 7 L Glucose 182 H Calcium 7.4 L 01/30/18 01/30/18 01/30/18 22:08 22:08 22:08 Creatine Kinase 48 CK-MB (CK-2) 0.76 Troponin I 0.054 NT-Pro-B Natriuret Pep 52754 H 12/01/31/18 01/31/18 04:27 04:27 13:17 Creatine Kinase 47 72 CK-MB (CK-2) 0.96 Troponin I 0.068 NT-Pro-B Natriuret Pep 01/31/18 01/31/18 01/31/18 13:17 18:20 18:20 Creatine Kinase 58 CK-MB (CK-2) 1.53 1.59 Troponin I 0.079 0.081 NT-Pro-B Natriuret Pep Impressions: Gastric Emptying Nuclear Medicine 01/30/18 00:00 IMPRESSION: No emptying of the administered activity from the stomach over 2 hours. KUB X-Ray 02/02/18 11:00 IMPRESSION: THE TIP OF THE NASOGASTRIC TUBE IN THE STOMACH. Abdomen Ultrasound 02/03/18 00:00 IMPRESSION: Post cholecystectomy. Otherwise unremarkable study Abdomen/Pelvis CT 02/03/18 07:00 IMPRESSION: Small bowel obstruction with transition point in the midline pelvis. Chest X-Ray 02/03/18 17:23 IMPRESSION: HEART ENLARGED WITHOUT FAILURE. NO OTHER SIGNIFICANT RADIOGRAPHIC FINDING IN THE CHEST. Assessment & Plan - Diagnosis (1) Small bowel obstruction Is this a current diagnosis for this admission?: Yes (2) Intractable vomiting Qualifiers: Nausea presence: with nausea Is this a current diagnosis for this admission?: Yes (3) Diabetic gastroparesis Is this a current diagnosis for this admission?: Yes (4) Obstructive jaundice Is this a current diagnosis for this admission?: Yes (5) End stage chronic kidney disease Is this a current diagnosis for this admission?: Yes
[2018-02-05] MEDS: FENTANYL CITRATE INJ/PF 100 MCG/2 ML AMPUL IV PRN ×2 (02:58→17:11)
[2018-02-05] MEDS: MIDAZOLAM 2 MG/2 ML INJ IV PRN (02:58)
[2018-02-05] MEDS: PROPOFOL 1,000 MG/100 ML INFUS..BTL IV PRN ×6 (02:58→22:15)
[2018-02-05 05:25] LABS: ARTERIAL BLOOD BASE EXCESS 2.8 mmol/L; ARTERIAL BLOOD H2CO3 0.97 mmol/L (1.05-1.35); ARTERIAL BLOOD HCO3 25.3 mmol/L (20-24); ARTERIAL BLOOD PCO2 32.2 mmHg (35-45); ARTERIAL BLOOD PH 7.51 (7.35-7.45); ARTERIAL BLOOD PO2 81.2 mmHg (80-100); ARTERIAL BLOOD TOTAL CO2 26.3 mmol/L (21-25)
[2018-02-05 05:28] LABS: ABSOLUTE BASOPHILS # (AUTO) 0.1 10^3/uL (0.0-0.2); ABSOLUTE EOSINOPHILS # (AUTO) 0.7 10^3/uL (0.0-0.6); ABSOLUTE LYMPHOCYTES (AUTO) 1.9 10^3/uL (0.5-4.7); ABSOLUTE MONOCYTES (AUTO) 1.7 10^3/uL (0.1-1.4); ABSOLUTE NEUT (AUTO) 7.4 10^3/uL (1.7-8.2); BASOPHILS % (AUTO) 0.8 % (0-2); EOSINOPHILS % (AUTO) 5.7 % (0-6); HEMOGLOBIN 12.2 g/dL (12.0-15.5); LYMPHOCYTES % (AUTO) 16.3 % (13-45); MEAN CORPUSCULAR HEMOGLOBIN 26.3 pg (27.0-33.4); MEAN CORPUSCULAR HGB CONC 32.3 g/dL (32.0-36.0); MEAN CORPUSCULAR VOLUME 81 fl (80-97); MONOCYTES % (AUTO) 14.3 % (3-13); PLATELET COUNT 134 10^3/uL (150-450); RED BLOOD COUNT 4.66 10^6/uL (3.72-5.28); RED CELL DISTRIBUTION WIDTH 18.5 % (11.5-14.0); SEGMENTED NEUTROPHILS % (AUTO) 62.9 % (42-78); TOTAL CELLS COUNTED % (AUTO) 100 %; WHITE BLOOD COUNT 11.7 10^3/uL (4.0-10.5)
[2018-02-05 05:31] LABS: ARTERIAL BLOOD FIO2 30%
[2018-02-05 05:52] LABS: ALANINE AMINOTRANSFERASE 43 U/L (9-52); ALBUMIN 2.7 g/dL (3.5-5.0); ALKALINE PHOSPHATASE 181 U/L (38-126); ANION GAP 18 (5-19); ASPARTATE AMINO TRANSFERASE 36 U/L (14-36); BILIRUBIN,DIRECT 1.2 mg/dL (0.0-0.4); BILIRUBIN,TOTAL 1.2 mg/dL (0.2-1.3); BLOOD UREA NITROGEN 34 mg/dL (7-20); CALCIUM 7.5 mg/dL (8.4-10.2); CARBON DIOXIDE 25 mmol/L (22-30); CHLORIDE 96 mmol/L (98-107); GLUCOSE 159 mg/dL (75-110); PHOSPHORUS 4.9 mg/dL (2.5-4.5); SODIUM 138.8 mmol/L (137-145); TOTAL PROTEIN 5.5 g/dL (6.3-8.2)
[2018-02-05] MEDS: HEPARIN SOD (PORCINE) 5,000 UNIT/ML 1 ML SYRINGE SUBCUT SCH ×3 (06:12→22:16)
[2018-02-05] MEDS: POTASSIUM CHLORIDE 20 MEQ/50 ML RTU IV SCH ×2 (10:44→18:55)
[2018-02-05] MEDS: HYDROCHLOROTHIAZIDE 25 MG TABLET PO SCH (10:45)
[2018-02-05] MEDS: VALSARTAN 160 MG TABLET PO SCH (10:45)
[2018-02-05] MEDS: AMLODIPINE BESYLATE 10 MG TABLET PO SCH (10:47)
[2018-02-05] MEDS: METOPROLOL SUCCINATE 50 MG TAB.SR.24H PO SCH (10:47)
--- NOTE | 2018-02-05 16:25 | PDOC PROGRESS REPORT ---
Subjective Progress Note for:: 02/05/18 Subjective:: Patient is still on mechanical ventilation Reason For Visit: PERSISTENT VOMITING ? DIABETES Physical Exam Vital Signs: Temp Pulse Resp BP Pulse Ox 96.1 F L 71 29 H 106/56 L 100 02/05/18 10:00 02/05/18 10:00 02/05/18 10:00 02/05/18 10:00 02/05/18 16:22 Intake & Output 02/04/18 02/05/18 02/06/18 06:59 06:59 06:59 Intake Total 635 1490 186 Output Total 1300 0 0 Balance -665 1490 186 Weight 102.6 kg 103.2 kg 103.2 kg Eye exam: PRESENT: PERRLA Respiratory exam: PRESENT: clear to auscultation [facility] Cardiovascular exam: PRESENT: +S1, +S2 GI/Abdominal exam: PRESENT: soft Results Laboratory Results: 02/05/18 05:05 02/05/18 05:05 02/05/18 02/05/18 02/05/18 05:05 05:05 05:05 WBC 11.7 H RBC 4.66 Hgb 12.2 Hct 38.0 MCV 81 MCH 26.3 L MCHC 32.3 RDW 18.5 H Plt Count 134 L Seg Neutrophils % 62.9 Lymphocytes % 16.3 Monocytes % 14.3 H Eosinophils % 5.7 Basophils % 0.8 Absolute Neutrophils 7.4 Absolute Lymphocytes 1.9 Absolute Monocytes 1.7 H Absolute Eosinophils 0.7 H Absolute Basophils 0.1 Carbonic Acid 0.97 L HCO3/H2CO3 Ratio 26:1 ABG pH 7.51 H ABG pCO2 32.2 L ABG pO2 81.2 ABG HCO3 25.3 H ABG O2 Saturation 97.0 ABG Base Excess 2.8 FiO2 30% Sodium 138.8 Potassium 3.0 L* Chloride 96 L Carbon Dioxide 25 Anion Gap 18 BUN 34 H Creatinine 7.39 H Est GFR ( Amer) 7 L Est GFR (Non-Af Amer) 6 L Glucose 159 H Calcium 7.5 L Phosphorus 4.9 H Magnesium 1.9 Total Bilirubin 1.2 AST 36 ALT 43 Alkaline Phosphatase 181 H Total Protein 5.5 L Albumin 2.7 L 01/30/18 01/30/18 01/30/18 22:08 22:08 22:08 Creatine Kinase 48 CK-MB (CK-2) 0.76 Troponin I 0.054 NT-Pro-B Natriuret Pep 42305 H 01/31/18 01/31/18 01/31/18 04:27 04:27 13:17 Creatine Kinase 47 72 CK-MB (CK-2) 0.96 Troponin I 0.068 NT-Pro-B Natriuret Pep 01/31/18 01/31/18 01/31/18 13:17 18:20 18:20 Creatine Kinase 58 CK-MB (CK-2) 1.53 1.59 Troponin I 0.079 0.081 NT-Pro-B Natriuret Pep Impressions: Gastric Emptying Nuclear Medicine 01/30/18 00:00 IMPRESSION: No emptying of the administered activity from the stomach over 2 hours. KUB X-Ray 02/02/18 11:00 IMPRESSION: THE TIP OF THE NASOGASTRIC TUBE IN THE STOMACH. Abdomen Ultrasound 02/03/18 00:00 IMPRESSION: Post cholecystectomy. Otherwise unremarkable study Abdomen/Pelvis CT 02/03/18 07:00 IMPRESSION: Small bowel obstruction with transition point in the midline pelvis. Chest X-Ray 02/03/18 17:23 IMPRESSION: HEART ENLARGED WITHOUT FAILURE. NO OTHER SIGNIFICANT RADIOGRAPHIC FINDING IN THE CHEST. Assessment & Plan - Diagnosis (1) Small bowel obstruction Is this a current diagnosis for this admission?: Yes (2) Intractable vomiting Qualifiers: Nausea presence: with nausea Is this a current diagnosis for this admission?: Yes (3) Diabetic gastroparesis Is this a current diagnosis for this admission?: Yes (4) Obstructive jaundice Is this a current diagnosis for this admission?: Yes (5) End stage chronic kidney disease Is this a current diagnosis for this admission?: Yes
[2018-02-05] MEDS: NORMAL SALINE 1000 ML 1,000 ML IV PRN (18:02)
[2018-02-05] MEDS ORDERED: POTASSI CL 20 MEQ/50 ML RIDER 20 MEQ/50 ML RTUPB IV ONE (18:53)
--- NOTE | 2018-02-05 20:23 | PDOC PROGRESS REPORT ---
Subjective Reason For Visit: PERSISTENT VOMITING ? DIABETES Physical Exam Vital Signs: Temp Pulse Resp BP Pulse Ox 97.9 F 71 29 H 106/56 L 100 02/05/18 18:00 02/05/18 10:00 02/05/18 10:00 02/05/18 10:00 02/05/18 16:22 Intake & Output 02/04/18 02/05/18 02/06/18 06:59 06:59 06:59 Intake Total 635 1490 1279 Output Total 1300 0 400 Balance -665 1490 879 Weight 102.6 kg 103.2 kg 103.2 kg Results Laboratory Results: 02/05/18 05:05 02/05/18 17:15 02/05/18 02/05/18 02/05/18 05:05 05:05 05:05 WBC 11.7 H RBC 4.66 Hgb 12.2 Hct 38.0 MCV 81 MCH 26.3 L MCHC 32.3 RDW 18.5 H Plt Count 134 L Seg Neutrophils % 62.9 Lymphocytes % 16.3 Monocytes % 14.3 H Eosinophils % 5.7 Basophils % 0.8 Absolute Neutrophils 7.4 Absolute Lymphocytes 1.9 Absolute Monocytes 1.7 H Absolute Eosinophils 0.7 H Absolute Basophils 0.1 Carbonic Acid 0.97 L HCO3/H2CO3 Ratio 26:1 ABG pH 7.51 H ABG pCO2 32.2 L ABG pO2 81.2 ABG HCO3 25.3 H ABG O2 Saturation 97.0 ABG Base Excess 2.8 FiO2 30% Sodium 138.8 Potassium 3.0 L* Chloride 96 L Carbon Dioxide 25 Anion Gap 18 BUN 34 H Creatinine 7.39 H Est GFR ( Amer) 7 L Est GFR (Non-Af Amer) 6 L Glucose 159 H Calcium 7.5 L Phosphorus 4.9 H Magnesium 1.9 Total Bilirubin 1.2 AST 36 ALT 43 Alkaline Phosphatase 181 H Total Protein 5.5 L Albumin 2.7 L 02/05/18 17:15 WBC RBC Hgb Hct MCV MCH MCHC RDW Plt Count Seg Neutrophils % Lymphocytes % Monocytes % Eosinophils % Basophils % Absolute Neutrophils Absolute Lymphocytes Absolute Monocytes Absolute Eosinophils Absolute Basophils Carbonic Acid HCO3/H2CO3 Ratio ABG pH ABG pCO2 ABG pO2 ABG HCO3 ABG O2 Saturation ABG Base Excess FiO2 Sodium Potassium 3.2 L Chloride Carbon Dioxide Anion Gap BUN Creatinine Est GFR ( Amer) Est GFR (Non-Af Amer) Glucose Calcium Phosphorus Magnesium Total Bilirubin AST ALT Alkaline Phosphatase Total Protein Albumin 01/30/18 01/30/18 01/30/18 22:08 22:08 22:08 Creatine Kinase 48 CK-MB (CK-2) 0.76 Troponin I 0.054 NT-Pro-B Natriuret Pep 71201 H 01/31/18 01/31/18 01/31/18 04:27 04:27 13:17 Creatine Kinase 47 72 CK-MB (CK-2) 0.96 Troponin I 0.068 NT-Pro-B Natriuret Pep 01/31/18 01/31/18 01/31/18 13:17 18:20 18:20 Creatine Kinase 58 CK-MB (CK-2) 1.53 1.59 Troponin I 0.079 0.081 NT-Pro-B Natriuret Pep Impressions: Gastric Emptying Nuclear Medicine 01/30/18 00:00 IMPRESSION: No emptying of the administered activity from the stomach over 2 hours. KUB X-Ray 02/02/18 11:00 IMPRESSION: THE TIP OF THE NASOGASTRIC TUBE IN THE STOMACH. Abdomen Ultrasound 02/03/18 00:00 IMPRESSION: Post cholecystectomy. Otherwise unremarkable study Abdomen/Pelvis CT 02/03/18 07:00 IMPRESSION: Small bowel obstruction with transition point in the midline pelvis. Chest X-Ray 02/03/18 17:23 IMPRESSION: HEART ENLARGED WITHOUT FAILURE. NO OTHER SIGNIFICANT RADIOGRAPHIC FINDING IN THE CHEST. Assessment & Plan - Diagnosis (1) Internal hernia Is this a current diagnosis for this admission?: Yes (2) Small bowel obstruction Is this a current diagnosis for this admission?: Yes - Plan Summary Plan Summary: This is a 58-year-old female status post exploratory laparotomy for small bowel obstruction due to an internal hernia. The patient remains intubated in the intensive care unit. She appears to be hemodynamically stable. Her dressing is intact. Pulmonology and medicine following. Continue supportive care. Continue NG decompression for now.
[2018-02-06 00:59] LABS: ALANINE AMINOTRANSFERASE 28 U/L (9-52); ALBUMIN 2.6 g/dL (3.5-5.0); ALKALINE PHOSPHATASE 188 U/L (38-126); ANION GAP 17 (5-19); ASPARTATE AMINO TRANSFERASE 25 U/L (14-36); BILIRUBIN,DIRECT 1.3 mg/dL (0.0-0.4); BILIRUBIN,TOTAL 1.3 mg/dL (0.2-1.3); BLOOD UREA NITROGEN 34 mg/dL (7-20); CALCIUM 7.5 mg/dL (8.4-10.2); CARBON DIOXIDE 24 mmol/L (22-30); CHLORIDE 97 mmol/L (98-107); GLUCOSE 142 mg/dL (75-110); POTASSIUM 3.5 mmol/L (3.6-5.0); SODIUM 137.5 mmol/L (137-145); TOTAL PROTEIN 5.4 g/dL (6.3-8.2)
[2018-02-06] MEDS: PROPOFOL 1,000 MG/100 ML INFUS..BTL IV PRN ×6 (01:40→22:37)
[2018-02-06] MEDS: MIDAZOLAM 2 MG/2 ML INJ IV PRN (03:51)
[2018-02-06] MEDS: FENTANYL CITRATE INJ/PF 100 MCG/2 ML AMPUL IV PRN (03:52)
[2018-02-06 04:36] LABS: ABSOLUTE BASOPHILS # (AUTO) 0.1 10^3/uL (0.0-0.2); ABSOLUTE EOSINOPHILS # (AUTO) 1.2 10^3/uL (0.0-0.6); ABSOLUTE LYMPHOCYTES (AUTO) 1.2 10^3/uL (0.5-4.7); ABSOLUTE MONOCYTES (AUTO) 1.3 10^3/uL (0.1-1.4); ABSOLUTE NEUT (AUTO) 7.3 10^3/uL (1.7-8.2); BASOPHILS % (AUTO) 0.8 % (0-2); EOSINOPHILS % (AUTO) 10.6 % (0-6); HEMATOCRIT 38.1 % (36.0-47.0); HEMOGLOBIN 12.3 g/dL (12.0-15.5); LYMPHOCYTES % (AUTO) 10.6 % (13-45); MEAN CORPUSCULAR HGB CONC 32.2 g/dL (32.0-36.0); MEAN CORPUSCULAR VOLUME 81 fl (80-97); MONOCYTES % (AUTO) 11.9 % (3-13); PLATELET COUNT 146 10^3/uL (150-450); RED BLOOD COUNT 4.71 10^6/uL (3.72-5.28); RED CELL DISTRIBUTION WIDTH 18.1 % (11.5-14.0); SEGMENTED NEUTROPHILS % (AUTO) 66.1 % (42-78); TOTAL CELLS COUNTED % (AUTO) 100 %; WHITE BLOOD COUNT 11.1 10^3/uL (4.0-10.5)
[2018-02-06 04:38] LABS: ARTERIAL BLOOD BASE EXCESS 2.1 mmol/L; ARTERIAL BLOOD FIO2 30%; ARTERIAL BLOOD H2CO3 1.29 mmol/L (1.05-1.35); ARTERIAL BLOOD O2 SATURATION 96.4 % (94-98); ARTERIAL BLOOD PCO2 42.9 mmHg (35-45); ARTERIAL BLOOD PH 7.42 (7.35-7.45); ARTERIAL BLOOD PO2 83.8 mmHg (80-100); ARTERIAL BLOOD TOTAL CO2 28.3 mmol/L (21-25)
[2018-02-06 04:49] LABS: ANION GAP 17 (5-19); BLOOD UREA NITROGEN 40 mg/dL (7-20); CALCIUM 7.6 mg/dL (8.4-10.2); CARBON DIOXIDE 26 mmol/L (22-30); CHLORIDE 97 mmol/L (98-107); GLUCOSE 149 mg/dL (75-110); PHOSPHORUS 6.3 mg/dL (2.5-4.5); POTASSIUM 3.6 mmol/L (3.6-5.0); SODIUM 139.6 mmol/L (137-145)
[2018-02-06] MEDS: HEPARIN SOD (PORCINE) 5,000 UNIT/ML 1 ML SYRINGE SUBCUT SCH ×3 (05:20→21:57)
--- NOTE | 2018-02-06 07:03 | RADIOLOGY REPORT (SQ) ---
EXAM DESCRIPTION: XR CHEST 1 VIEW COMPLETED DATE/TME: 02/06/2018 06:00 CLINICAL HISTORY: 58 years Female, resp failure COMPARISON: 3 days prior. NUMBER OF VIEWS/TECHNIQUE: 1/AP FINDINGS: Moderate left lower retrocardiac opacity.Adequate appearing endotracheal tube. Likely adequate appearing enteric tube partially obscured. Moderately enlarged cardiac silhouette. Left axillary/upper thoracic graft. No pneumothorax. Stable bony thorax. IMPRESSION: No significant change.
--- NOTE | 2018-02-06 10:48 | PDOC PROGRESS REPORT ---
Subjective Progress Note for:: 02/06/18 Reason For Visit: Patient seen in the hospital in the ICU today. She underwent expiratory laparotomy and underwent reduction of an internal hernia and lysis of adhesions. She is currently intubated and sedated in the ICU. Patient currently undergoing dialysis which is being supervised. Blood pressure is tenuous. Labs and medications were reviewed with the treating nurse. Physical Exam Vital Signs: Temp Pulse Resp BP Pulse Ox 97.6 F 81 16 91/49 L 98 02/05/18 20:00 02/06/18 05:45 02/06/18 05:45 02/06/18 05:37 02/06/18 08:20 Intake & Output 02/05/18 02/06/18 02/07/18 06:59 06:59 06:59 Intake Total 1490 1560 68 Output Total 0 670 Balance 1490 890 68 Weight 103.2 kg 102.4 kg Exam: Currently intubated and sedated. Respiratory exam: PRESENT: clear to auscultation charity, decreased breath sounds. ABSENT: crackles Cardiovascular exam: PRESENT: +S1, +S2, systolic murmur GI/Abdominal exam: PRESENT: firm, hypoactive bowel sounds, tenderness Extremities exam: ABSENT: pedal edema Neurological exam: PRESENT: altered Skin exam: ABSENT: erythema, rash Results Laboratory Results: 02/06/18 04:00 02/06/18 04:00 02/05/18 02/06/18 02/06/18 17:15 00:20 04:00 WBC RBC Hgb Hct MCV MCH MCHC RDW Plt Count Seg Neutrophils % Lymphocytes % Monocytes % Eosinophils % Basophils % Absolute Neutrophils Absolute Lymphocytes Absolute Monocytes Absolute Eosinophils Absolute Basophils Carbonic Acid 1.29 HCO3/H2CO3 Ratio 20:1 ABG pH 7.42 ABG pCO2 42.9 ABG pO2 83.8 ABG HCO3 27.0 H ABG O2 Saturation 96.4 ABG Base Excess 2.1 FiO2 30% Sodium 137.5 Potassium 3.2 L 3.5 L Chloride 97 L Carbon Dioxide 24 Anion Gap 17 BUN 34 H Creatinine 8.17 H Est GFR ( Amer) 6 L Est GFR (Non-Af Amer) 5 L Glucose 142 H Calcium 7.5 L Phosphorus Magnesium Total Bilirubin 1.3 AST 25 ALT 28 Alkaline Phosphatase 188 H Total Protein 5.4 L Albumin 2.6 L 02/06/18 02/06/18 04:00 04:00 WBC 11.1 H RBC 4.71 Hgb 12.3 Hct 38.1 MCV 81 MCH 26.0 L MCHC 32.2 RDW 18.1 H Plt Count 146 L Seg Neutrophils % 66.1 Lymphocytes % 10.6 L Monocytes % 11.9 Eosinophils % 10.6 H Basophils % 0.8 Absolute Neutrophils 7.3 Absolute Lymphocytes 1.2 Absolute Monocytes 1.3 Absolute Eosinophils 1.2 H Absolute Basophils 0.1 Carbonic Acid HCO3/H2CO3 Ratio ABG pH ABG pCO2 ABG pO2 ABG HCO3 ABG O2 Saturation ABG Base Excess FiO2 Sodium 139.6 Potassium 3.6 Chloride 97 L Carbon Dioxide 26 Anion Gap 17 BUN 40 H Creatinine 8.80 H Est GFR ( Amer) 6 L Est GFR (Non-Af Amer) 5 L Glucose 149 H Calcium 7.6 L Phosphorus 6.3 H Magnesium 1.9 Total Bilirubin AST ALT Alkaline Phosphatase Total Protein Albumin 01/30/18 01/30/18 01/30/18 22:08 22:08 22:08 Creatine Kinase 48 CK-MB (CK-2) 0.76 Troponin I 0.054 NT-Pro-B Natriuret Pep [id number] H 01/31/18 01/31/18 01/31/18 04:27 04:27 13:17 Creatine Kinase 47 72 CK-MB (CK-2) 0.96 Troponin I 0.068 NT-Pro-B Natriuret Pep 01/31/18 01/31/18 01/31/18 13:17 18:20 18:20 Creatine Kinase 58 CK-MB (CK-2) 1.53 1.59 Troponin I 0.079 0.081 NT-Pro-B Natriuret Pep Impressions: Gastric Emptying Nuclear Medicine 01/30/18 00:00 IMPRESSION: No emptying of the administered activity from the stomach over 2 hours. KUB X-Ray 02/02/18 11:00 IMPRESSION: THE TIP OF THE NASOGASTRIC TUBE IN THE STOMACH. Abdomen Ultrasound 02/03/18 00:00 IMPRESSION: Post cholecystectomy. Otherwise unremarkable study Abdomen/Pelvis CT 02/03/18 07:00 IMPRESSION: Small bowel obstruction with transition point in the midline pelvis . Chest X-Ray 02/06/18 06:00 IMPRESSION: No significant change. Assessment & Plan - Diagnosis (1) End stage chronic kidney disease Is this a current diagnosis for this admission?: Yes Plan: Patient currently undergoing dialysis which is being supervised to ensure safe and smooth procedure. Blood pressure is tenuous and therefore we are going to administer fluids to maintain blood pressure. Discussed with treating nurse. We will plan to remove no fluid offered during this dialysis. Discussed with the treating nurse that she might need to remain in a positive balance because of her postop situation. (2) Intractable vomiting Qualifiers: Nausea presence: with nausea Is this a current diagnosis for this admission?: Yes Plan: In the face of acute abdomen which now is seemingly resolved status post laparotomy and lysis of adhesions along with reduction of internal hernia. (3) Hypertension Plan: Currently she is hypotensive. I am stopping her amlodipine and valsartan. Monitor. Needs more fluids. (4) Type 2 diabetes mellitus Qualifiers: Diabetes mellitus senior living insulin use: with termination clerk use Diabetes mellitus complication status: with kidney complications Diabetes mellitus complication detail: with chronic kidney disease Chronic kidney disease stage: on chronic dialysis Qualified Code(s): E11.22 - Type 2 diabetes mellitus with diabetic chronic kidney disease; N18.6 - End stage renal disease; Z99.2 - Dependence on renal dialysis; Z99.2 - Dependence on renal dialysis; Z99.2 - Dependence on renal dialysis; N18.6 - End stage renal disease; N18.6 - End stage renal disease; N18.6 - End stage renal disease; Z79.4 - assisted (current) use of insulin; Z79.4 - manager intermediate (current) use of insulin; Z79.4 - manager intermediate (current) use of insulin; Z79.4 - assisted (current) use of insulin; Z99.2 - Dependence on renal dialysis Plan: Advised tight control. (5) Abnormal liver function tests Plan: As per Dr. Hoskins.
--- NOTE | 2018-02-06 11:47 | PDOC PROGRESS REPORT ---
Subjective Progress Note for:: 02/06/18 Reason For Visit: PERSISTENT VOMITING ? DIABETES Physical Exam Vital Signs: Temp Pulse Resp BP Pulse Ox 97.6 F 81 16 91/49 L 98 02/05/18 20:00 02/06/18 05:45 02/06/18 05:45 02/06/18 05:37 02/06/18 08:20 Intake & Output 02/05/18 02/06/18 02/07/18 06:59 06:59 06:59 Intake Total 1490 1560 68 Output Total 0 670 Balance 1490 890 68 Weight 103.2 kg 102.4 kg Respiratory exam: PRESENT: clear to auscultation charity GI/Abdominal exam: PRESENT: soft - Abdomen is soft mood midline incision is clean with a occlusive dressing Results Laboratory Results: 02/06/18 04:00 02/06/18 04:00 02/05/18 02/06/18 02/06/18 17:15 00:20 04:00 WBC RBC Hgb Hct MCV MCH MCHC RDW Plt Count Seg Neutrophils % Lymphocytes % Monocytes % Eosinophils % Basophils % Absolute Neutrophils Absolute Lymphocytes Absolute Monocytes Absolute Eosinophils Absolute Basophils Carbonic Acid 1.29 HCO3/H2CO3 Ratio 20:1 ABG pH 7.42 ABG pCO2 42.9 ABG pO2 83.8 ABG HCO3 27.0 H ABG O2 Saturation 96.4 ABG Base Excess 2.1 FiO2 30% Sodium 137.5 Potassium 3.2 L 3.5 L Chloride 97 L Carbon Dioxide 24 Anion Gap 17 BUN 34 H Creatinine 8.17 H Est GFR ( Amer) 6 L Est GFR (Non-Af Amer) 5 L Glucose 142 H Calcium 7.5 L Phosphorus Magnesium Total Bilirubin 1.3 AST 25 ALT 28 Alkaline Phosphatase 188 H Total Protein 5.4 L Albumin 2.6 L 02/06/18 02/06/18 04:00 04:00 WBC 11.1 H RBC 4.71 Hgb 12.3 Hct 38.1 MCV 81 MCH 26.0 L MCHC 32.2 RDW 18.1 H Plt Count 146 L Seg Neutrophils % 66.1 Lymphocytes % 10.6 L Monocytes % 11.9 Eosinophils % 10.6 H Basophils % 0.8 Absolute Neutrophils 7.3 Absolute Lymphocytes 1.2 Absolute Monocytes 1.3 Absolute Eosinophils 1.2 H Absolute Basophils 0.1 Carbonic Acid HCO3/H2CO3 Ratio ABG pH ABG pCO2 ABG pO2 ABG HCO3 ABG O2 Saturation ABG Base Excess FiO2 Sodium 139.6 Potassium 3.6 Chloride 97 L Carbon Dioxide 26 Anion Gap 17 BUN 40 H Creatinine 8.80 H Est GFR ( Amer) 6 L Est GFR (Non-Af Amer) 5 L Glucose 149 H Calcium 7.6 L Phosphorus 6.3 H Magnesium 1.9 Total Bilirubin AST ALT Alkaline Phosphatase Total Protein Albumin 01/30/18 01/30/18 01/30/18 22:08 22:08 22:08 Creatine Kinase 48 CK-MB (CK-2) 0.76 Troponin I 0.054 NT-Pro-B Natriuret Pep [id number] H 01/31/18 01/31/18 01/31/18 04:27 04:27 13:17 Creatine Kinase 47 72 CK-MB (CK-2) 0.96 Troponin I 0.068 NT-Pro-B Natriuret Pep 01/31/18 01/31/18 01/31/18 13:17 18:20 18:20 Creatine Kinase 58 CK-MB (CK-2) 1.53 1.59 Troponin I 0.079 0.081 NT-Pro-B Natriuret Pep Impressions: Gastric Emptying Nuclear Medicine 01/30/18 00:00 IMPRESSION: No emptying of the administered activity from the stomach over 2 hours. KUB X-Ray 02/02/18 11:00 IMPRESSION: THE TIP OF THE NASOGASTRIC TUBE IN THE STOMACH. Abdomen Ultrasound 02/03/18 00:00 IMPRESSION: Post cholecystectomy. Otherwise unremarkable study Abdomen/Pelvis CT 02/03/18 07:00 IMPRESSION: Small bowel obstruction with transition point in the midline pelvis. Chest X-Ray 02/06/18 06:00 IMPRESSION: No significant change. Assessment & Plan - Diagnosis (1) Diabetic gastroparesis Is this a current diagnosis for this admission?: Yes (2) Small bowel obstruction Is this a current diagnosis for this admission?: Yes - Plan Summary Plan Summary: This patient is status post expiratory laparotomy for small bowel obstruction. Not requiring small bowel resection. He remains on the ventilator sedated early undergoing dialysis is mildly hypotensive with blood pressures running in the 90 systolic range and only receiving 50 cc/h of IV fluids plans is later management per medicine and your NG suction until resumption of bowel function. We will give her a IV bolus of 1 L of normal saline now and then start her on TPN she h as been n.p.o. for a while and could be a while before she has resumption of bowel function
[2018-02-06] MEDS: NORMAL SALINE 1000 ML 1,000 ML IV PRN (14:28)
[2018-02-06] MEDS: METOPROLOL SUCCINATE 50 MG TAB.SR.24H PO SCH (14:41)
[2018-02-06] MEDS: HYDROCHLOROTHIAZIDE 25 MG TABLET PO SCH (14:41)
[2018-02-06] MEDS ORDERED: NORMAL SALINE 1000 ML 1,000 ML IV ONE (14:41)
[2018-02-06 15:30] LABS: HEMATOCRIT 36.6 % (36.0-47.0); HEMOGLOBIN 11.8 g/dL (12.0-15.5); MEAN CORPUSCULAR HGB CONC 32.2 g/dL (32.0-36.0); MEAN CORPUSCULAR VOLUME 81 fl (80-97); PLATELET COUNT 134 10^3/uL (150-450); RED BLOOD COUNT 4.53 10^6/uL (3.72-5.28); RED CELL DISTRIBUTION WIDTH 17.8 % (11.5-14.0); WHITE BLOOD COUNT 12.2 10^3/uL (4.0-10.5)
[2018-02-06] MEDS ORDERED: GLUCAGON,HUMAN RECOMB 1 MG INJ IM PRN (15:30)
[2018-02-06] MEDS ORDERED: DEXTROSE 10%-WATER 1,000 ML IV PRN (15:30)
[2018-02-06] MEDS ORDERED: DEXTROSE 40% GEL 15 GM TUBE X 2 PO PRN (15:30)
[2018-02-06] MEDS ORDERED: DEXTROSE 50%-WATER SYRINGE 25 GM/50 ML DOSE IV PRN (15:30)
[2018-02-06] MEDS ORDERED: DEXTROSE 40% GEL 15 GM TUBE PO PRN (15:30)
[2018-02-06] MEDS ORDERED: DEXTROSE 50%-WATER SYRINGE 12.5 GM/25 ML DOSE IV PRN (15:30)
[2018-02-06 15:44] LABS: INTERNATIONAL RATION (INR) 1.14; PROTHROMBIN TIME 15.2 SEC (11.4-15.4)
--- NOTE | 2018-02-06 16:42 | PDOC PROGRESS REPORT ---
Subjective Progress Note for:: 02/06/18 Subjective:: Patient still on the vent, on weaning trials Reason For Visit: PERSISTENT VOMITING ? DIABETES Physical Exam Vital Signs: Temp Pulse Resp BP Pulse Ox 99.7 F 73 16 91/49 L 98 02/06/18 14:00 02/06/18 10:00 02/06/18 05:45 02/06/18 05:37 02/06/18 12:00 Intake & Output 02/05/18 02/06/18 02/07/18 06:59 06:59 06:59 Intake Total 1490 1560 1468 Output Total 0 670 0 Balance 3605 419 6072 Weight 103.2 kg 102.4 kg General appearance: PRESENT: no acute distress Eye exam: PRESENT: PERRLA Respiratory exam: PRESENT: clear to auscultation [facility] Cardiovascular exam: PRESENT: +S1, +S2 GI/Abdominal exam: PRESENT: soft Results Laboratory Results: 02/06/18 15:22 02/06/18 04:00 02/05/18 02/06/18 02/06/18 17:15 00:20 04:00 WBC RBC Hgb Hct MCV MCH MCHC RDW Plt Count Seg Neutrophils % Lymphocytes % Monocytes % Eosinophils % Basophils % Absolute Neutrophils Absolute Lymphocytes Absolute Monocytes Absolute Eosinophils Absolute Basophils Carbonic Acid 1.29 HCO3/H2CO3 Ratio 20:1 ABG pH 7.42 ABG pCO2 42.9 ABG pO2 83.8 ABG HCO3 27.0 H ABG O2 Saturation 96.4 ABG Base Excess 2.1 FiO2 30% Sodium 137.5 Potassium 3.2 L 3.5 L Chloride 97 L Carbon Dioxide 24 Anion Gap 17 BUN 34 H Creatinine 8.17 H Est GFR ( Amer) 6 L Est GFR (Non-Af Amer) 5 L Glucose 142 H Calcium 7.5 L Phosphorus Magnesium Total Bilirubin 1.3 AST 25 ALT 28 Alkaline Phosphatase 188 H Total Protein 5.4 L Albumin 2.6 L 02/06/18 02/06/18 02/06/18 04:00 04:00 15:22 WBC 11.1 H 12.2 H RBC 4.71 4.53 Hgb 12.3 11.8 L Hct 38.1 36.6 MCV 81 81 MCH 26.0 L 26.0 L MCHC 32.2 32.2 RDW 18.1 H 17.8 H Plt Count 146 L 134 L Seg Neutrophils % 66.1 Lymphocytes % 10.6 L Monocytes % 11.9 Eosinophils % 10.6 H Basophils % 0.8 Absolute Neutrophils 7.3 Absolute Lymphocytes 1.2 Absolute Monocytes 1.3 Absolute Eosinophils 1.2 H Absolute Basophils 0.1 Carbonic Acid HCO3/H2CO3 Ratio ABG pH ABG pCO2 ABG pO2 ABG HCO3 ABG O2 Saturation ABG Base Excess FiO2 Sodium 139.6 Potassium 3.6 Chloride 97 L Carbon Dioxide 26 Anion Gap 17 BUN 40 H Creatinine 8.80 H Est GFR ( Amer) 6 L Est GFR (Non-Af Amer) 5 L Glucose 149 H Calcium 7.6 L Phosphorus 6.3 H Magnesium 1.9 Total Bilirubin AST ALT Alkaline Phosphatase Total Protein Albumin 02/06/18 15:22 WBC RBC Hgb Hct MCV MCH MCHC RDW Plt Count Seg Neutrophils % Lymphocytes % Monocytes % Eosinophils % Basophils % Absolute Neutrophils Absolute Lymphocytes Absolute Monocytes Absolute Eosinophils Absolute Basophils Carbonic Acid HCO3/H2CO3 Ratio ABG pH ABG pCO2 ABG pO2 ABG HCO3 ABG O2 Saturation ABG Base Excess FiO2 Sodium Potassium Chloride Carbon Dioxide Anion Gap BUN Creatinine Est GFR ( Amer) Est GFR (Non-Af Amer) Glucose Calcium Phosphorus Magnesium 1.7 Total Bilirubin AST ALT Alkaline Phosphatase Total Protein Albumin 01/30/18 01/30/18 01/30/18 22:08 22:08 22:08 Creatine Kinase 48 CK-MB (CK-2) 0.76 Troponin I 0.054 NT-Pro-B Natriuret Pep [id number] H 01/31/18 01/31/18 01/31/18 04:27 04:27 13:17 Creatine Kinase 47 72 CK-MB (CK-2) 0.96 Troponin I 0.068 NT-Pro-B Natriuret Pep 01/31/18 01/31/18 01/31/18 13:17 18:20 18:20 Creatine Kinase 58 CK-MB (CK-2) 1.53 1.59 Troponin I 0.079 0.081 NT-Pro-B Natriuret Pep Impressions: Gastric Emptying Nuclear Medicine 01/30/18 00:00 IMPRESSION: No emptying of the administered activity from the stomach over 2 hours. KUB X-Ray 02/02/18 11:00 IMPRESSION: THE TIP OF THE NASOGASTRIC TUBE IN THE STOMACH. Abdomen Ultrasound 02/03/18 00:00 IMPRESSION: Post cholecystectomy. Otherwise unremarkable study Abdomen/Pelvis CT 02/03/18 07:00 IMPRESSION: Small bowel obstruction with transition point in the midline pelvis. Chest X-Ray 02/06/18 06:00 IMPRESSION: No significant change. Assessment & Plan - Diagnosis (1) Small bowel obstruction Is this a current diagnosis for this admission?: Yes (2) Intractable vomiting Qualifiers: Nausea presence: with nausea Is this a current diagnosis for this admission?: Yes (3) Diabetic gastroparesis Is this a current diagnosis for this admission?: Yes (4) Obstructive jaundice Is this a current diagnosis for this admission?: Yes (5) End stage chronic kidney disease Is this a current diagnosis for this admission?: Yes
[2018-02-06] MEDS: POTASSIUM CHLORIDE 20 MEQ/50 ML RTU IV SCH (21:57)
[2018-02-07] MEDS: PROPOFOL 1,000 MG/100 ML INFUS..BTL IV PRN ×5 (02:33→23:16)
[2018-02-07] MEDS: MIDAZOLAM 2 MG/2 ML INJ IV PRN ×2 (02:34→17:57)
[2018-02-07] MEDS: NORMAL SALINE 1000 ML 1,000 ML IV PRN ×2 (02:39→16:46)
[2018-02-07] MEDS: AMINO ACIDS 5%/D25W 1,000 ML IV PRN (04:37)
[2018-02-07] MEDS: HEPARIN SOD (PORCINE) 5,000 UNIT/ML 1 ML SYRINGE SUBCUT SCH ×3 (05:04→23:14)
[2018-02-07 05:22] LABS: ABSOLUTE BASOPHILS # (AUTO) 0.1 10^3/uL (0.0-0.2); ABSOLUTE EOSINOPHILS # (AUTO) 1.2 10^3/uL (0.0-0.6); ABSOLUTE LYMPHOCYTES (AUTO) 1.3 10^3/uL (0.5-4.7); ABSOLUTE MONOCYTES (AUTO) 1.8 10^3/uL (0.1-1.4); BASOPHILS % (AUTO) 0.8 % (0-2); EOSINOPHILS % (AUTO) 9.3 % (0-6); HEMATOCRIT 36.3 % (36.0-47.0); HEMOGLOBIN 11.7 g/dL (12.0-15.5); LYMPHOCYTES % (AUTO) 9.6 % (13-45); MEAN CORPUSCULAR HEMOGLOBIN 26.5 pg (27.0-33.4); MEAN CORPUSCULAR HGB CONC 32.2 g/dL (32.0-36.0); MEAN CORPUSCULAR VOLUME 82 fl (80-97); MONOCYTES % (AUTO) 13.4 % (3-13); PLATELET COUNT 150 10^3/uL (150-450); RED CELL DISTRIBUTION WIDTH 17.7 % (11.5-14.0); SEGMENTED NEUTROPHILS % (AUTO) 66.9 % (42-78); TOTAL CELLS COUNTED % (AUTO) 100 %; WHITE BLOOD COUNT 13.4 10^3/uL (4.0-10.5)
[2018-02-07 05:49] LABS: ALANINE AMINOTRANSFERASE 20 U/L (9-52); ALBUMIN 2.6 g/dL (3.5-5.0); ALKALINE PHOSPHATASE 172 U/L (38-126); ANION GAP 12 (5-19); ASPARTATE AMINO TRANSFERASE 27 U/L (14-36); BILIRUBIN,DIRECT 1.4 mg/dL (0.0-0.4); BILIRUBIN,TOTAL 1.5 mg/dL (0.2-1.3); BLOOD UREA NITROGEN 24 mg/dL (7-20); CALCIUM 7.7 mg/dL (8.4-10.2); CARBON DIOXIDE 26 mmol/L (22-30); CHLORIDE 102 mmol/L (98-107); GLUCOSE 146 mg/dL (75-110); PHOSPHORUS 6.9 mg/dL (2.5-4.5); POTASSIUM 4.2 mmol/L (3.6-5.0); SODIUM 139.7 mmol/L (137-145); TOTAL PROTEIN 5.7 g/dL (6.3-8.2)
[2018-02-07 05:56] LABS: PREALBUMIN 10.9 mg/dL (17.6-36.0)
[2018-02-07 07:12] LABS: ARTERIAL BLOOD BASE EXCESS 0.1 mmol/L; ARTERIAL BLOOD H2CO3 1.43 mmol/L (1.05-1.35); ARTERIAL BLOOD HCO3 26.1 mmol/L (20-24); ARTERIAL BLOOD O2 SATURATION 97.3 % (94-98); ARTERIAL BLOOD PCO2 47.4 mmHg (35-45); ARTERIAL BLOOD PH 7.36 (7.35-7.45); ARTERIAL BLOOD PO2 99.7 mmHg (80-100); ARTERIAL BLOOD TOTAL CO2 27.5 mmol/L (21-25)
[2018-02-07 07:13] LABS: ARTERIAL BLOOD FIO2 35%
--- NOTE | 2018-02-07 08:29 | RADIOLOGY REPORT (SQ) ---
EXAM DESCRIPTION: CHEST SINGLE VIEW COMPLETED DATE/TIME: 02/07/2018 6:52 am REASON FOR STUDY: resp failure COMPARISON: 02/06/2018 EXAM PARAMETERS: NUMBER OF VIEWS: One view TECHNIQUE: Single frontal radiograph of the chest. RADIATION DOSE: N/A LIMITATIONS: None. FINDINGS: TEMPORARY SUPPORT DEVICES:ETT in expected location. NG tube courses below the miller-diaphr agm in to the stomach. LUNGS AND PLEURA: No opacities. No effusions. No masses. No pneumothorax. MEDIASTINUM AND HILAR STRUCTURES: No masses. Contour normal. HEART AND VASCULAR STRUCTURES: Heart is enlarged. Vascular congestion. Aorta normal for age. BONES: No acute findings. OTHER: Vascular stent. IMPRESSION: Vascular congestion. SUPPORT DEVICE(S) IN EXPECTED LOCATIONS. TECHNICAL DOCUMENTATION: JOB ID: [id number] [facility]- All Rights Reserved Reading location - IP/workstation name: [email or web address]
[2018-02-07] MEDS: METOPROLOL SUCCINATE 50 MG TAB.SR.24H PO SCH (09:30)
[2018-02-07] MEDS: HYDROCHLOROTHIAZIDE 25 MG TABLET PO SCH (09:30)
--- NOTE | 2018-02-07 14:45 | PDOC PROGRESS REPORT ---
Subjective Progress Note for:: 02/07/18 Subjective:: Patient still vent dependent Reason For Visit: PERSISTENT VOMITING ? DIABETES Physical Exam Vital Signs: Temp Pulse Resp BP Pulse Ox 98.4 F 83 14 129/67 H 96 02/07/18 08:00 02/07/18 08:00 02/07/18 08:38 02/07/18 08:38 02/07/18 12:57 Intake & Output 02/06/18 02/07/18 02/08/18 06:59 06:59 06:59 Intake Total 1560 2757 43 Output Total 670 600 0 Balance 890 2157 43 Weight 102.4 kg 106.2 kg General appearance: PRESENT: no acute distress Eye exam: PRESENT: PERRLA Respiratory exam: PRESENT: clear to auscultation [facility] Cardiovascular exam: PRESENT: +S1, +S2 GI/Abdominal exam: PRESENT: soft Neurological exam: PRESENT: alert Results Laboratory Results: 02/07/18 05:05 02/07/18 05:05 02/06/18 02/06/18 02/07/18 15:22 15:22 05:05 WBC 12.2 H 13.4 H RBC 4.53 4.40 Hgb 11.8 L 11.7 L Hct 36.6 36.3 MCV 81 82 MCH 26.0 L 26.5 L MCHC 32.2 32.2 RDW 17.8 H 17.7 H Plt Count 134 L 150 Seg Neutrophils % 66.9 Lymphocytes % 9.6 L Monocytes % 13.4 H Eosinophils % 9.3 H Basophils % 0.8 Absolute Neutrophils 9.0 H Absolute Lymphocytes 1.3 Absolute Monocytes 1.8 H Absolute Eosinophils 1.2 H Absolute Basophils 0.1 Carbonic Acid HCO3/H2CO3 Ratio ABG pH ABG pCO2 ABG pO2 ABG HCO3 ABG O2 Saturation ABG Base Excess FiO2 Sodium Potassium Chloride Carbon Dioxide Anion Gap BUN Creatinine Est GFR ( Amer) Est GFR (Non-Af Amer) Glucose Calcium Phosphorus Magnesium 1.7 Total Bilirubin AST ALT Alkaline Phosphatase Total Protein Albumin Prealbumin 02/07/18 02/07/18 05:05 06:15 WBC RBC Hgb Hct MCV MCH MCHC RDW Plt Count Seg Neutrophils % Lymphocytes % Monocytes % Eosinophils % Basophils % Absolute Neutrophils Absolute Lymphocytes Absolute Monocytes Absolute Eosinophils Absolute Basophils Carbonic Acid 1.43 H HCO3/H2CO3 Ratio 18:1 ABG pH 7.36 ABG pCO2 47.4 H ABG pO2 99.7 ABG HCO3 26.1 H ABG O2 Saturation 97.3 ABG Base Excess 0.1 FiO2 35% Sodium 139.7 Potassium 4.2 Chloride 102 Carbon Dioxide 26 Anion Gap 12 BUN 24 H Creatinine 5.94 H Est GFR ( Amer) 9 L Est GFR (Non-Af Amer) 7 L Glucose 146 H Calcium 7.7 L Phosphorus 6.9 H Magnesium 1.8 Total Bilirubin 1.5 H AST 27 ALT 20 Alkaline Phosphatase 172 H Total Protein 5.7 L Albumin 2.6 L Prealbumin 10.9 L 01/30/18 01/30/18 01/30/18 22:08 22:08 22:08 Creatine Kinase 48 CK-MB (CK-2) 0.76 Troponin I 0.054 NT-Pro-B Natriuret Pep [id number] H 01/31/18 01/31/18 01/31/18 04:27 04:27 13:17 Creatine Kinase 47 72 CK-MB (CK-2) 0.96 Troponin I 0.068 NT-Pro-B Natriuret Pep 01/31/18 01/31/18 01/31/18 13:17 18:20 18:20 Creatine Kinase 58 CK-MB (CK-2) 1.53 1.59 Troponin I 0.079 0.081 NT-Pro-B Natriuret Pep Impressions: Gastric Emptying Nuclear Medicine 01/30/18 00:00 IMPRESSION: No emptying of the administered activity from the stomach over 2 hours. KUB X-Ray 02/02/18 11:00 IMPRESSION: THE TIP OF THE NASOGASTRIC TUBE IN THE STOMACH. Abdomen Ultrasound 02/03/18 00:00 IMPRESSION: Post cholecystectomy. Otherwise unremarkable study Abdomen/Pelvis CT 02/03/18 07:00 IMPRESSION: Small bowel obstruction with transition point in the midline pelvis. Chest X-Ray 02/07/18 06:00 IMPRESSION: Vascular congestion. SUPPORT DEVICE(S) IN EXPECTED LOCATIONS. Assessment & Plan - Diagnosis (1) Small bowel obstruction Is this a current diagnosis for this admission?: Yes (2) Intractable vomiting Qualifiers: Nausea presence: with nausea Is this a current diagnosis for this admission?: Yes (3) Diabetic gastroparesis Is this a current diagnosis for this admission?: Yes (4) Obstructive jaundice Is this a current diagnosis for this admission?: Yes (5) End stage chronic kidney disease Is this a current diagnosis for this admission?: Yes
--- NOTE | 2018-02-07 15:21 | PDOC PROGRESS REPORT ---
Subjective Progress Note for:: 02/07/18 - post op lysis of adhesions, Subjective:: pt remains intubated nurse noteded sl intermittent hypotension small amt of blood in ngt. Reason For Visit: PERSISTENT VOMITING ? DIABETES post op lysis of adhesions Physical Exam Vital Signs: Temp Pulse Resp BP Pulse Ox 98.4 F 83 14 129/67 H 96 02/07/18 08:00 02/07/18 08:00 02/07/18 08:38 02/07/18 08:38 02/07/18 12:57 Intake & Output 02/06/18 02/07/18 02/08/18 06:59 06:59 06:59 Intake Total 1560 2757 82 Output Total 670 600 0 Balance 890 2157 82 Weight 102.4 kg 106.2 kg General appearance: PRESENT: no acute distress, other - intubated GI/Abdominal exam: PRESENT: diminished bowel sounds, soft - wound clean dry Results Laboratory Results: 02/07/18 05:05 02/07/18 05:05 02/06/18 02/06/18 02/07/18 15:22 15:22 05:05 WBC 12.2 H 13.4 H RBC 4.53 4.40 Hgb 11.8 L 11.7 L Hct 36.6 36.3 MCV 81 82 MCH 26.0 L 26.5 L MCHC 32.2 32.2 RDW 17.8 H 17.7 H Plt Count 134 L 150 Seg Neutrophils % 66.9 Lymphocytes % 9.6 L Monocytes % 13.4 H Eosinophils % 9.3 H Basophils % 0.8 Absolute Neutrophils 9.0 H Absolute Lymphocytes 1.3 Absolute Monocytes 1.8 H Absolute Eosinophils 1.2 H Absolute Basophils 0.1 Carbonic Acid HCO3/H2CO3 Ratio ABG pH ABG pCO2 ABG pO2 ABG HCO3 ABG O2 Saturation ABG Base Excess FiO2 Sodium Potassium Chloride Carbon Dioxide Anion Gap BUN Creatinine Est GFR ( Amer) Est GFR (Non-Af Amer) Glucose Calcium Phosphorus Magnesium 1.7 Total Bilirubin AST ALT Alkaline Phosphatase Total Protein Albumin Prealbumin 02/07/18 02/07/18 05:05 06:15 WBC RBC Hgb Hct MCV MCH MCHC RDW Plt Count Seg Neutrophils % Lymphocytes % Monocytes % Eosinophils % Basophils % Absolute Neutrophils Absolute Lymphocytes Absolute Monocytes Absolute Eosinophils Absolute Basophils Carbonic Acid 1.43 H HCO3/H2CO3 Ratio 18:1 ABG pH 7.36 ABG pCO2 47.4 H ABG pO2 99.7 ABG HCO3 26.1 H ABG O2 Saturation 97.3 ABG Base Excess 0.1 FiO2 35% Sodium 139.7 Potassium 4.2 Chloride 102 Carbon Dioxide 26 Anion Gap 12 BUN 24 H Creatinine 5.94 H Est GFR ( Amer) 9 L Est GFR (Non-Af Amer) 7 L Glucose 146 H Calcium 7.7 L Phosphorus 6.9 H Magnesium 1.8 Total Bilirubin 1.5 H AST 27 ALT 20 Alkaline Phosphatase 172 H Total Protein 5.7 L Albumin 2.6 L Prealbumin 10.9 L 01/30/18 01/30/18 01/30/18 22:08 22:08 22:08 Creatine Kinase 48 CK-MB (CK-2) 0.76 Troponin I 0.054 NT-Pro-B Natriuret Pep [id number] H 01/31/18 01/31/18 01/31/18 04:27 04:27 13:17 Creatine Kinase 47 72 CK-MB (CK-2) 0.96 Troponin I 0.068 NT-Pro-B Natriuret Pep 01/31/18 01/31/18 01/31/18 13:17 18:20 18:20 Creatine Kinase 58 CK-MB (CK-2) 1.53 1.59 Troponin I 0.079 0.081 NT-Pro-B Natriuret Pep Impressions: Gastric Emptying Nuclear Medicine 01/30/18 00:00 IMPRESSION: No emptying of the administered activity from the stomach over 2 hours. KUB X-Ray 02/02/18 11:00 IMPRESSION: THE TIP OF THE NASOGASTRIC TUBE IN THE STOMACH. Abdomen Ultrasound 02/03/18 00:00 IMPRESSION: Post cholecystectomy. Otherwise unremarkable study Abdomen/Pelvis CT 02/03/18 07:00 IMPRESSION: Small bowel obstruction with transition point in the midline pelvis. Chest X-Ray 02/07/18 06:00 IMPRESSION: Vascular congestion. SUPPORT DEVICE(S) IN EXPECTED LOCATIONS. Assessment & Plan - Diagnosis (1) Diabetic gastroparesis Is this a current diagnosis for this admission?: Yes (2) Small bowel obstruction Is this a current diagnosis for this admission?: Yes - Plan Summary Plan Summary: trial at extubation this am failed due to pt anxiety and agitation pt started on diprovan drip noted by nurse to have low bp around 60-70 systolic min blood in ng tube impresson post lyis of adhesions in a renal failure pt now intubated dialysis yesterday hypotension plan will readjust ng iv fluid bolus and albumin bolus cont icu care will follow.
[2018-02-07] MEDS ORDERED: NOREPINEPHRINE BITARTRATE INJ/PF 4 MG/4 ML SDV IV ONE (15:37)
[2018-02-07] MEDS ORDERED: NORMAL SALINE 1000 ML 1,000 ML IV ONE ×2 (15:45→16:30)
[2018-02-07] MEDS ORDERED: DEXTROSE 5%-WATER 250 ML with NOREPINEPHRINE BITARTRATE 4 MG IV PRN ×4 (16:22→17:06)
[2018-02-07] MEDS: ALBUMIN HUMAN 12.5 GM/50 ML RTUINJ IV SCH ×2 (16:41→17:10)
[2018-02-07] MEDS ORDERED: NORMAL SALINE 1000 ML 1,000 ML IV PRN (17:06)
[2018-02-07] MEDS: FENTANYL CITRATE INJ/PF 100 MCG/2 ML AMPUL IV PRN (17:07)
[2018-02-07] MEDS ORDERED: IPRATROPIUM/ALBUTEROL 0.5-2.5 MG/3 ML AMPUL NEB ONE (18:45)
[2018-02-07] MEDS ORDERED: INSULIN LISPRO 100 UNIT/ML 3 ML VIAL SUBCUT ONE (19:00)
[2018-02-07] MEDS: INSULIN REG, HUMAN 100 UNIT/ML 3 ML VIAL (PYX) SUBCUT PRN ×2 (19:09→23:41)
--- NOTE | 2018-02-07 19:23 | RADIOLOGY REPORT (SQ) ---
EXAM DESCRIPTION: CHEST SINGLE VIEW COMPLETED DATE/TIME: 02/07/2018 7:14 pm REASON FOR STUDY: ARDS COMPARISON: 02/07/2018 0645 hours EXAM PARAMETERS: NUMBER OF VIEWS: One view TECHNIQUE: Single frontal radiograph of the chest. RADIATION DOSE: N/A LIMITATIONS: None. FINDINGS: TEMPORARY SUPPORT DEVICES:ETT in expected location. NG tube courses below the miller-diaphr agm in to the stomach. LUNGS AND PLEURA: No opacities. No effusions. No masses. No pneumothorax. MEDIASTINUM AND HILAR STRUCTURES: No masses. Contour normal. HEART AND VASCULAR STRUCTURES: Heart is enlarged. Vascular congestion. Aorta normal for age. BONES: No acute findings. OTHER: No other significant finding. IMPRESSION: Vascular congestion improved. SUPPORT DEVICE(S) IN EXPECTED LOCATIONS. TECHNICAL DOCUMENTATION: JOB ID: [id number] [employer]- All Rights Reserved Reading location - IP/workstation name: [email or web address]
[2018-02-07 19:29] LABS: ALANINE AMINOTRANSFERASE 13 U/L (9-52); ALBUMIN 2.8 g/dL (3.5-5.0); ALKALINE PHOSPHATASE 163 U/L (38-126); ANION GAP 13 (5-19); ASPARTATE AMINO TRANSFERASE 32 U/L (14-36); BILIRUBIN,DIRECT 2.2 mg/dL (0.0-0.4); BILIRUBIN,TOTAL 2.7 mg/dL (0.2-1.3); BLOOD UREA NITROGEN 28 mg/dL (7-20); CALCIUM 7.7 mg/dL (8.4-10.2); CARBON DIOXIDE 23 mmol/L (22-30); CHLORIDE 101 mmol/L (98-107); PHOSPHORUS 5.7 mg/dL (2.5-4.5); POTASSIUM 4.4 mmol/L (3.6-5.0); SODIUM 137.4 mmol/L (137-145); TOTAL PROTEIN 5.5 g/dL (6.3-8.2)
[2018-02-07 19:40] LABS: CREATINE KINASE MB 1.2 ng/mL (<4.55); TROPONIN I 0.11 ng/mL
[2018-02-07 19:48] LABS: GLUCOSE 413 mg/dL (75-110)
[2018-02-07] MEDS ORDERED: VASOPRESSIN INJ 20 UNIT/1 ML VIAL ONE (19:53)
[2018-02-07] MEDS ORDERED: DEXTROSE 5%-WATER 250 ML with VASOPRESSIN 100 UNIT IV PRN ×2 (20:15)
--- NOTE | 2018-02-08 | EKG REPORT ---
SEVERITY:- ABNORMAL ECG - SINUS RHYTHM BORDERLINE LEFT AXIS DEVIATION LOW VOLTAGE IN FRONTAL LEADS ABNORMAL T, CONSIDER ISCHEMIA, LATERAL LEADS PROLONGED QT INTERVAL : Confirmed by: Lexii Thorne 07-Feb-2018 23:59:51
[2018-02-08] MEDS: PROPOFOL 1,000 MG/100 ML INFUS..BTL IV PRN ×4 (00:56→12:17)
[2018-02-08 05:02] LABS: ALANINE AMINOTRANSFERASE 8 U/L (9-52); ALBUMIN 2.9 g/dL (3.5-5.0); ALKALINE PHOSPHATASE 145 U/L (38-126); ANION GAP 16 (5-19); ASPARTATE AMINO TRANSFERASE 35 U/L (14-36); BILIRUBIN,DIRECT 1.5 mg/dL (0.0-0.4); BILIRUBIN,TOTAL 1.7 mg/dL (0.2-1.3); BLOOD UREA NITROGEN 31 mg/dL (7-20); CALCIUM 7.9 mg/dL (8.4-10.2); CARBON DIOXIDE 20 mmol/L (22-30); CHLORIDE 103 mmol/L (98-107); CREATINE KINASE 348 U/L (30-135); GLUCOSE 316 mg/dL (75-110); POTASSIUM 4.9 mmol/L (3.6-5.0); SODIUM 138.5 mmol/L (137-145); TOTAL PROTEIN 6.1 g/dL (6.3-8.2)
[2018-02-08 05:12] LABS: CREATINE KINASE MB 1.2 ng/mL (<4.55)
[2018-02-08 05:19] LABS: TROPONIN I 0.811 ng/mL
[2018-02-08] MEDS: AMINO ACIDS 5%/D25W 1,000 ML IV PRN (05:32)
[2018-02-08] MEDS: INSULIN REG, HUMAN 100 UNIT/ML 3 ML VIAL (PYX) SUBCUT PRN ×2 (05:33→16:04)
[2018-02-08] MEDS: HEPARIN SOD (PORCINE) 5,000 UNIT/ML 1 ML SYRINGE SUBCUT SCH ×3 (05:35→22:44)
[2018-02-08 07:56] LABS: ARTERIAL BLOOD BASE EXCESS -0.5 mmol/L; ARTERIAL BLOOD H2CO3 0.64 mmol/L (1.05-1.35); ARTERIAL BLOOD HCO3 19.4 mmol/L (20-24); ARTERIAL BLOOD O2 SATURATION 99.2 % (94-98); ARTERIAL BLOOD PCO2 21.1 mmHg (35-45); ARTERIAL BLOOD PH 7.58 (7.35-7.45); ARTERIAL BLOOD TOTAL CO2 20.1 mmol/L (21-25)
[2018-02-08 08:03] LABS: ARTERIAL BLOOD FIO2 50%
--- NOTE | 2018-02-08 08:28 | RADIOLOGY REPORT (SQ) ---
EXAM DESCRIPTION: CHEST SINGLE VIEW COMPLETED DATE/TIME: 02/08/2018 6:58 am REASON FOR STUDY: resp failure COMPARISON: Chest films 02/03/2018, 02/06/2018, 02/07/2018 EXAM PARAMETERS: NUMBER OF VIEWS: One view. TECHNIQUE: Single frontal radiographic view of the chest acquired. RADIATION DOSE: NA LIMITATIONS: None. FINDINGS: LUNGS AND PLEURA: No opacities, masses or pneumothorax. No pleural effusion. MEDIASTINUM AND HILAR STRUCTURES: No masses. Contour normal. HEART AND VASCULAR STRUCTURES: Stable massive cardiomegaly BONES: No acute findings. HARDWARE: Endotracheal tube tip 4 to 5 cm above the tiffany. Nasogastric tube tip and side port in th e stomach. Left subclavian vascular stents, unchanged OTHER: No other significant finding. IMPRESSION: Stable massive cardiomegaly No acute infiltrates Endotracheal tube, nasogastric tube in good positioning. TECHNICAL DOCUMENTATION: JOB ID: [id number] [employer]- All Rights Reserved Reading location - IP/workstation name: [email or web address]
[2018-02-08 08:42] LABS: PHOSPHORUS 5.1 mg/dL (2.5-4.5)
[2018-02-08 08:49] LABS: PREALBUMIN 11.6 mg/dL (17.6-36.0)
[2018-02-08 09:24] LABS: ANION GAP 13 (5-19); BLOOD UREA NITROGEN 31 mg/dL (7-20); CARBON DIOXIDE 19 mmol/L (22-30); CHLORIDE 106 mmol/L (98-107); CREATINE KINASE 296 U/L (30-135); GLUCOSE 307 mg/dL (75-110); SODIUM 137.6 mmol/L (137-145)
[2018-02-08 09:27] LABS: POTASSIUM 3.6 mmol/L (3.6-5.0)
[2018-02-08 12:25] LABS: CREATINE KINASE MB 1.1 ng/mL (<4.55); TROPONIN I 1.09 ng/mL
--- NOTE | 2018-02-08 12:25 | PDOC PROGRESS REPORT ---
Subjective Progress Note for:: 02/08/18 Reason For Visit: Patient remains in the ICU intubated and sedated. Patient seen on dialysis. Patient undergoing dialysis without any issues. She has had hypotensive episodes overnight and has been fluid resuscitated as well as is on Levophed now. Labs and medications were reviewed with the treating nurse. Dialysis orders were reviewed with the treating dialysis nurse. Physical Exam Vital Signs: Temp Pulse Resp BP Pulse Ox 97.5 F 72 20 127/65 H 100 02/08/18 10:00 02/08/18 10:00 02/08/18 11:29 02/08/18 11:29 02/08/18 11:29 Intake & Output 02/07/18 02/08/18 02/09/18 06:59 06:59 06:59 Intake Total 2757 2431 183 Output Total 600 300 Balance 2157 2131 183 Weight 106.2 kg 110.3 kg Exam: Remains intubated and sedated. Respiratory exam: PRESENT: clear to auscultation [facility], decreased breath sounds. ABSENT: crackles Cardiovascular exam: PRESENT: +S1, +S2, systolic murmur GI/Abdominal exam: PRESENT: firm, hypoactive bowel sounds Extremities exam: PRESENT: pedal edema Neurological exam: PRESENT: altered Skin exam: ABSENT: cyanosis, erythema, mottled Results Laboratory Results: 02/07/18 05:05 02/08/18 08:47 02/07/18 02/07/18 02/08/18 19:00 19:00 04:20 Carbonic Acid HCO3/H2CO3 Ratio ABG pH ABG pCO2 ABG pO2 ABG HCO3 ABG O2 Saturation ABG Base Excess FiO2 Sodium Cancelled 137.4 138.5 Potassium Cancelled 4.4 4.9 Chloride Cancelled 101 103 Carbon Dioxide Cancelled 23 20 L Anion Gap Cancelled 13 16 BUN Cancelled 28 H 31 H Creatinine Cancelled 6.59 H 6.66 H Est GFR ( Amer) Cancelled 8 L 8 L Est GFR (Non-Af Amer) Cancelled 6 L 6 L Glucose Cancelled 413 H* 316 H Calcium Cancelled 7.7 L 7.9 L Phosphorus 5.7 H Magnesium 1.9 Total Bilirubin 2.7 H 1.7 H AST 32 35 ALT 13 8 L Alkaline Phosphatase 163 H 145 H Total Protein 5.5 L 6.1 L Albumin 2.8 L 2.9 L Prealbumin 02/08/18 02/08/18 02/08/18 04:20 07:15 08:47 Carbonic Acid 0.64 L HCO3/H2CO3 Ratio 30:1 ABG pH 7.58 H ABG pCO2 21.1 L ABG pO2 142.0 H ABG HCO3 19.4 L ABG O2 Saturation 99.2 H ABG Base Excess -0.5 FiO2 50% Sodium 137.6 Potassium 3.6 D Chloride 106 Carbon Dioxide 19 L Anion Gap 13 BUN 31 H Creatinine 6.49 H Est GFR ( Amer) 8 L Est GFR (Non-Af Amer) 7 L Glucose 307 H Calcium 8.0 L Phosphorus 5.1 H Magnesium Total Bilirubin AST ALT Alkaline Phosphatase Total Protein Albumin Prealbumin 11.6 L 01/30/18 01/30/18 01/30/18 22:08 22:08 22:08 Creatine Kinase 48 CK-MB (CK-2) 0.76 Troponin I 0.054 NT-Pro-B Natriuret Pep 44998 H 01/31/18 01/31/18 01/31/18 04:27 04:27 13:17 Creatine Kinase 47 72 CK-MB (CK-2) 0.96 Troponin I 0.068 NT-Pro-B Natriuret Pep 01/31/18 01/31/18 01/31/18 13:17 18:20 18:20 Creatine Kinase 58 CK-MB (CK-2) 1.53 1.59 Troponin I 0.079 0.081 NT-Pro-B Natriuret Pep 02/07/18 02/07/18 02/08/18 19:00 19:00 04:20 Creatine Kinase 376 H 348 H CK-MB (CK-2) 1.20 Troponin I 0.110 NT-Pro-B Natriuret Pep 02/08/18 02/08/18 04:20 08:47 Creatine Kinase 296 H CK-MB (CK-2) 1.20 Troponin I 0.811 NT-Pro-B Natriuret Pep Impressions: Gastric Emptying Nuclear Medicine 01/30/18 00:00 IMPRESSION: No emptying of the administered activity from the stomach over 2 ho urs. KUB X-Ray 02/02/18 11:00 IMPRESSION: THE TIP OF THE NASOGASTRIC TUBE IN THE STOMACH. Abdomen Ultrasound 02/03/18 00:00 IMPRESSION: Post cholecystectomy. Otherwise unremarkable study Abdomen/Pelvis CT 02/03/18 07:00 IMPRESSION: Small bowel obstruction with transition point in the midline pelvis. Chest X-Ray 02/08/18 06:00 IMPRESSION: Stable massive cardiomegaly No acute infiltrates Endotracheal tube, nasogastric tube in good positioning. Assessment & Plan - Diagnosis (1) End stage chronic kidney disease Is this a current diagnosis for this admission?: Yes Plan: Patient currently undergoing dialysis which is being supervised to ensure safe and smooth procedure. Blood pressure dropped last night and was fluid resuscitated and has been begun on Levophed. Discussed with treating nurse. We will plan to remove no fluid offered during this dialysis. Discussed with the treating nurse that she might need to remain in a positive balance because of he r postop situation. (2) Intractable vomiting Qualifiers: Nausea presence: with nausea Is this a current diagnosis for this admission?: Yes (3) Hypertension Plan: Currently she is hypotensive. Off all her antihypertensives and currently on Levophed. Monitor. (4) Type 2 diabetes mellitus Qualifiers: Diabetes mellitus intermediate manager insulin use: with intermediate manager use Diabetes mellitus complication status: with kidney complications Diabetes mellitus complication detail: with chronic kidney disease Chronic kidney disease stage: on chronic dialysis Qualified Code(s): E11.22 - Type 2 diabetes mellitus with diabetic chronic kidney disease; N18.6 - End stage renal disease; Z99.2 - Dependence on renal dialysis; Z99.2 - Dependence on renal dialysis; Z99.2 - Dependence on renal dialysis; N18.6 - End stage renal disease; N18.6 - End stage renal disease; N18.6 - End stage renal disease; Z79.4 - skilled nursing (current) use of insulin; Z79.4 - manager intermediate (current) use of insulin; Z79.4 - manager intermediate (current) use of insulin; Z79.4 - skilled nursing (current) use of insulin; Z99.2 - Dependence on renal dialysis Plan: As per hospitalist. Blood sugars have been running on the high side and needs better control obviously. (5) Abnormal liver function tests Plan: Improving.
[2018-02-08] MEDS: METOPROLOL SUCCINATE 50 MG TAB.SR.24H PO SCH ×2 (12:33→18:00)
[2018-02-08] MEDS: HYDROCHLOROTHIAZIDE 25 MG TABLET PO SCH ×2 (12:33→18:01)
--- NOTE | 2018-02-08 15:06 | PDOC PROGRESS REPORT ---
Subjective Progress Note for:: 02/08/18 Subjective:: Patient had hemodialysis today, off sedation, still on mechanical ventilation, poor cognition, CT head showed focal encephalomalacia in the left occiput but no acute pathology Reason For Visit: PERSISTENT VOMITING ? DIABETES Physical Exam Vital Signs: Temp Pulse Resp BP Pulse Ox 98.2 F 91 28 H 184/78 H 94 02/08/18 14:00 02/08/18 14:00 02/08/18 14:00 02/08/18 14:00 02/08/18 14:00 Intake & Output 02/07/18 02/08/18 02/09/18 06:59 06:59 06:59 Intake Total 2757 2431 183 Output Total 278 133 9807 Balance 2157 2131 -1417 Weight 106.2 kg 110.3 kg General appearance: PRESENT: no acute distress Eye exam: PRESENT: PERRLA Respiratory exam: PRESENT: clear to auscultation [facility] Cardiovascular exam: PRESENT: +S1, +S2 GI/Abdominal exam: PRESENT: soft Results Laboratory Results: 02/07/18 05:05 02/08/18 08:47 02/07/18 02/07/18 02/08/18 19:00 19:00 04:20 Carbonic Acid HCO3/H2CO3 Ratio ABG pH ABG pCO2 ABG pO2 ABG HCO3 ABG O2 Saturation ABG Base Excess FiO2 Sodium Cancelled 137.4 138.5 Potassium Cancelled 4.4 4.9 Chloride Cancelled 101 103 Carbon Dioxide Cancelled 23 20 L Anion Gap Cancelled 13 16 BUN Cancelled 28 H 31 H Creatinine Cancelled 6.59 H 6.66 H Est GFR ( Amer) Cancelled 8 L 8 L Est GFR (Non-Af Amer) Cancelled 6 L 6 L Glucose Cancelled 413 H* 316 H Calcium Cancelled 7.7 L 7.9 L Phosphorus 5.7 H Magnesium 1.9 Total Bilirubin 2.7 H 1.7 H AST 32 35 ALT 13 8 L Alkaline Phosphatase 163 H 145 H Total Protein 5.5 L 6.1 L Albumin 2.8 L 2.9 L Prealbumin 02/08/18 02/08/18 02/08/18 04:20 07:15 08:47 Carbonic Acid 0.64 L HCO3/H2CO3 Ratio 30:1 ABG pH 7.58 H ABG pCO2 21.1 L ABG pO2 142.0 H ABG HCO3 19.4 L ABG O2 Saturation 99.2 H ABG Base Excess -0.5 FiO2 50% Sodium 137.6 Potassium 3.6 D Chloride 106 Carbon Dioxide 19 L Anion Gap 13 BUN 31 H Creatinine 6.49 H Est GFR ( Amer) 8 L Est GFR (Non-Af Amer) 7 L Glucose 307 H Calcium 8.0 L Phosphorus 5.1 H Magnesium Total Bilirubin AST ALT Alkaline Phosphatase Total Protein Albumin Prealbumin 11.6 L 01/30/18 01/30/18 01/30/18 22:08 22:08 22:08 Creatine Kinase 48 CK-MB (CK-2) 0.76 Troponin I 0.054 NT-Pro-B Natriuret Pep 93112 H 01/31/18 01/31/18 01/31/18 04:27 04:27 13:17 Creatine Kinase 47 72 CK-MB (CK-2) 0.96 Troponin I 0.068 NT-Pro-B Natriuret Pep 01/31/18 01/31/18 01/31/18 13:17 18:20 18:20 Creatine Kinase 58 CK-MB (CK-2) 1.53 1.59 Troponin I 0.079 0.081 NT-Pro-B Natriuret Pep 02/07/18 02/07/18 02/08/18 19:00 19:00 04:20 Creatine Kinase 376 H 348 H CK-MB (CK-2) 1.20 Troponin I 0.110 NT-Pro-B Natriuret Pep 02/08/18 02/08/18 02/08/18 04:20 08:47 11:45 Creatine Kinase 296 H CK-MB (CK-2) 1.20 1.10 Troponin I 0.811 1.090 NT-Pro-B Natriuret Pep Impressions: Gastric Emptying Nuclear Medicine 01/30/18 00:00 IMPRESSION: No emptying of the administered activity from the stomach over 2 h ours. KUB X-Ray 02/02/18 11:00 IMPRESSION: THE TIP OF THE NASOGASTRIC TUBE IN THE STOMACH. Abdomen Ultrasound 02/03/18 00:00 IMPRESSION: Post cholecystectomy. Otherwise unremarkable study Abdomen/Pelvis CT 02/03/18 07:00 IMPRESSION: Small bowel obstruction with transition point in the midline pelvis. Chest X-Ray 02/08/18 06:00 IMPRESSION: Stable massive cardiomegaly No acute infiltrates Endotracheal tube, nasogastric tube in good positioning. Assessment & Plan - Diagnosis (1) Small bowel obstruction Is this a current diagnosis for this admission?: Yes (2) Intractable vomiting Qualifiers: Nausea presence: with nausea Is this a current diagnosis for this admission?: Yes (3) Diabetic gastroparesis Is this a current diagnosis for this admission?: Yes (4) Obstructive jaundice Is this a current diagnosis for this admission?: Yes (5) End stage chronic kidney disease Is this a current diagnosis for this admission?: Yes
--- NOTE | 2018-02-08 16:18 | RADIOLOGY REPORT (SQ) ---
EXAM DESCRIPTION: CT HEAD WITHOUT COMPLETED DATE/TIME: 02/08/2018 3:56 pm REASON FOR STUDY: unresponsivness E09.21 DRUG/CHEM DIABETES MELLITUS W DIABETIC NEPHROPATHY I42.0 DILATED CARDIOMYOPATHY COMPARISON: 12/13/2017. TECHNIQUE: Axial images acquired through the brain without intravenous contrast. Images reviewed wi th bone, brain and subdural windows. Images stored on PACS. All CT scanners at this facility use dose modulation, iterative reconstruction, and/or weight based d osing when appropriate to reduce radiation dose to as low as reasonably achievable (ALARA). [facility]: Dose Right [facility]: CareDose [facility]: Dose Right [facility]: Teradose 4D [facility]: Smart Bee Shield RADIATION DOSE: CT Rad equipment meets quality standard of care and radiation dose reduction techniq ues were employed. CTDIvol: 48.6 mGy. DLP: 856 mGy-cm. mGy. LIMITATIONS: None. FINDINGS: VENTRICLES: Normal size and contour. CEREBRUM: No masses. No hemorrhage. No midline shift. Minimal decreased attenuation subcortical an d periventricular white matter consistent with chronic white matter change. Focal encephalomalacia m edial left occipital lobe unchanged. CEREBELLUM: No masses. No hemorrhage. No alteration of density. No evidence for acute infarction. EXTRAAXIAL SPACES: No fluid collections. No masses. ORBITS AND GLOBE: No intra- or extraconal masses. Normal contour of globe without masses. CALVARIUM: No fracture. PARANASAL SINUSES: Minimal mucosal thickening of ethmoid, maxillary, and sphenoid sinuses. SOFT TISSUES: No mass or hematoma. OTHER: No other significant finding. IMPRESSION: No significant change. Chronic white matter changes. Focal encephalomalacia medial lef t occipital lobe EVIDENCE OF ACUTE STROKE: NO. COMMENT: Quality ID # [id number]: Final reports with documentation of one or more dose reduction techniques (e.g., Automated exposure control, adjustment of the mA and/or kV according to patient size, use of iterative reconstruction technique) TECHNICAL DOCUMENTATION: JOB ID: [id number] [employer]- All Rights Reserved Reading location - IP/workstation name: [email or web address]
--- NOTE | 2018-02-08 19:12 | PDOC PROGRESS REPORT ---
Subjective Reason For Visit: PERSISTENT VOMITING ? DIABETES Physical Exam Vital Signs: Temp Pulse Resp BP Pulse Ox 98.3 F 102 H 33 H 163/81 H 94 02/08/18 17:58 02/08/18 17:58 02/08/18 18:10 02/08/18 18:10 02/08/18 18:10 Intake & Output 02/07/18 02/08/18 02/09/18 06:59 06:59 06:59 Intake Total 2757 2431 183 Output Total 344 720 5608 Balance 2157 2131 -1867 Weight 106.2 kg 110.3 kg Results Laboratory Results: 02/07/18 05:05 02/08/18 08:47 02/07/18 02/07/18 02/08/18 19:00 19:00 04:20 Carbonic Acid HCO3/H2CO3 Ratio ABG pH ABG pCO2 ABG pO2 ABG HCO3 ABG O2 Saturation ABG Base Excess FiO2 Sodium Cancelled 137.4 138.5 Potassium Cancelled 4.4 4.9 Chloride Cancelled 101 103 Carbon Dioxide Cancelled 23 20 L Anion Gap Cancelled 13 16 BUN Cancelled 28 H 31 H Creatinine Cancelled 6.59 H 6.66 H Est GFR ( Amer) Cancelled 8 L 8 L Est GFR (Non-Af Amer) Cancelled 6 L 6 L Glucose Cancelled 413 H* 316 H Calcium Cancelled 7.7 L 7.9 L Phosphorus 5.7 H Magnesium 1.9 Total Bilirubin 2.7 H 1.7 H AST 32 35 ALT 13 8 L Alkaline Phosphatase 163 H 145 H Total Protein 5.5 L 6.1 L Albumin 2.8 L 2.9 L Prealbumin 02/08/18 02/08/18 02/08/18 04:20 07:15 08:47 Carbonic Acid 0.64 L HCO3/H2CO3 Ratio 30:1 ABG pH 7.58 H ABG pCO2 21.1 L ABG pO2 142.0 H ABG HCO3 19.4 L ABG O2 Saturation 99.2 H ABG Base Excess -0.5 FiO2 50% Sodium 137.6 Potassium 3.6 D Chloride 106 Carbon Dioxide 19 L Anion Gap 13 BUN 31 H Creatinine 6.49 H Est GFR ( Amer) 8 L Est GFR (Non-Af Amer) 7 L Glucose 307 H Calcium 8.0 L Phosphorus 5.1 H Magnesium Total Bilirubin AST ALT Alkaline Phosphatase Total Protein Albumin Prealbumin 11.6 L 01/30/18 01/30/18 01/30/18 22:08 22:08 22:08 Creatine Kinase 48 CK-MB (CK-2) 0.76 Troponin I 0.054 NT-Pro-B Natriuret Pep 03803 H 01/31/18 01/31/18 01/31/18 04:27 04:27 13:17 Creatine Kinase 47 72 CK-MB (CK-2) 0.96 Troponin I 0.068 NT-Pro-B Natriuret Pep 01/31/18 01/31/18 01/31/18 13:17 18:20 18:20 Creatine Kinase 58 CK-MB (CK-2) 1.53 1.59 Troponin I 0.079 0.081 NT-Pro-B Natriuret Pep 02/07/18 02/07/18 02/08/18 19:00 19:00 04:20 Creatine Kinase 376 H 348 H CK-MB (CK-2) 1.20 Troponin I 0.110 NT-Pro-B Natriuret Pep 02/08/18 02/08/18 02/08/18 04:20 08:47 11:45 Creatine Kinase 296 H CK-MB (CK-2) 1.20 1.10 Troponin I 0.811 1.090 NT-Pro-B Natriuret Pep Impressions: Gastric Emptying Nuclear Medicine 01/30/18 00:00 IMPRESSION: No emptying of the administered activity from the stomach over 2 hours. KUB X-Ray 02/02/18 11:00 IMPRESSION: THE TIP OF THE NASOGASTRIC TUBE IN THE STOMACH. Abdomen Ultrasound 02/03/18 00:00 IMPRESSION: Post cholecystectomy. Otherwise unremarkable study Abdomen/Pelvis CT 02/03/18 07:00 IMPRESSION: Small bowel obstruction with transition point in the midline pel vis. Head CT 02/08/18 00:00 IMPRESSION: No significant change. Chronic white matter changes. Focal encephalomalacia medial left occipital lobe EVIDENCE OF ACUTE STROKE: NO. Chest X-Ray 02/08/18 06:00 IMPRESSION: Stable massive cardiomegaly No acute infiltrates Endotracheal tube, nasogastric tube in good positioning. Assessment & Plan - Diagnosis (1) Internal hernia Is this a current diagnosis for this admission?: Yes (2) Small bowel obstruction Is this a current diagnosis for this admission?: Yes - Plan Summary Plan Summary: This is a 58-year-old female status post exploratory laparotomy for small bowel obstruction due to an internal hernia. The patient remains intubated in the intensive care unit. She remains on 0.02 of Vasopressin, MAPS 70's-80's. Her dressing is intact. Pulmonology and medicine following. Continue supportive care. Continue NG decompression for now.
--- NOTE | 2018-02-08 22:03 | PDOC CONSULTATION ---
Consultation-Blank Consultation: CARDIOLOGY CONSULTATION by Dr. Claribel Edmonds on 02/08/2018. Patient seen at 12:30 PM on 02/08/2018. REASON FOR CONSULTATION ": Abnormal EKG and elevated troponin levels. HISTORY OF PRESENT ILLNESS: Note that the patient is intubated and sedated, and hence unable to get history from patient. History from the patient's chart. Patient is a 58-year-old morbidly obese Afro-Romanian female, with a history of hypertension, end-stage renal disease, and history of diabetes mellitus and cardiomyopathy, with prior history of congestive heart failure, came in with the complaints of vomiting and nausea and abdominal pain, and was found to have small bowel obstruction, and subsequently had surgery for that postoperatively it is been difficult to wean the patient on the ventilator, and she was hypotensive requiring levo fed to get a blood pressures up. Her EKG shows a little more pronounced T inversions in the lateral leads I aVL. And also nonspecific T changes in the anterior leads. This is slightly more pronounced than what she had before. Initial troponin I which was 0.110 subsequently radha up to 0.8.. The patient briefly was placed on vasopressin yesterday as per my recommendation, the patient's blood pressure has now come up and in fact is very good off the pressors that is off levo Levophed and off vasopressin. There is no ventricular arrhythmias seen on the monitor. It is difficult to discern if the patient recently had any chest pains or discomfort. PAST MEDICAL HISTORY: Is positive for hypertension. Positive for end-stage renal disease on hemodialysis. She has a history of depression she has a history of arthritis and gout. She has a history of GERD. She has a history of sleep apnea and uses CPAP. She also has a history of diabetes mellitus type 2 with gastropathy and autonomic neuropathy. There is history of myocardial infarction 2008, but a stress test done 2 years ago was said to be normal. The patient also has prior history of cardiomyopathy, but her echocardiogram done in 2017 showed moderate concentric left ventricular hypertrophy, with normal left ventricular systolic function. She also claims to have a history of myocardial infarction in 2007, but states she does not a have any coronary artery disease. She has a history of prior congestive heart failure. She has a history of end- stage renal disease on hemodialysis. She has a history of arthritis, and gout. PAST SURGICAL HISTORY: Appendectomy, , cholecystectomy hysterectomy AV fistula placement cancer removed from back orthopedic surgery, parathyroidectomy and right adrenalectomy. SOCIAL HISTORY the patient has never smoked. There is no history of EtOH abuse. FAMILY history: Is not obtainable. ALLERGIES: The patient is allergic to labetalol penicillin, duloxetine, latex, Tradjenta, epinephrine, and big toes. REVIEW OF SYSTEMS: Is not obtainable since the patient is intubated and sedated, and no relatives are around. DISPOSITION: The patient is a full code, her daughter is a surrogate healthcare decision maker. PHYSICAL EXAMINATION: The patient is morbidly obese. She is in no acute distress. She is well-groomed. 02/08/18 02/08/18 12:00 14:00 Temperature 97.5 F 98.2 F Temperature Axillary Axillary Source Pulse Rate 77 91 Respiratory 20 28 H Rate Respiratory Normal Effort Non-Labored Mechanically Ventilated Blood Pressure 111/58 L 184/78 H [Upper Arm] Blood Pressure 75 113 Mean [Upper Arm ] Blood Pressure Supine Supine Position [Upper Arm] Blood Pressure 111 Systolic [Upper Arm] O2 Sat by Pulse 100 94 Oximetry Oxygen Delivery Mechanical Mechanical Method ( Ventilator Ventilator includes room air) Percent of 50 30 Oxygen HEAD: Is atraumatic normocephalic. EYES: Pupils are equal round regular reactive to light. There is no conjunctival pallor. There is no scleral icterus. ENT: Is negative. NECK: Is supple. There is no JVD. Carotids equal there is no bruits. There is no goiter. Trachea central. There is no lymphadenopathy. There is no accessory muscles of respiration use. LUNGS: A few scattered rhonchi otherwise lungs are fairly clear to auscultation and percussion. HEART: S1-S2 is heard S1 is of normal intensity. There is no S3 gallop. There is no S4 gallop. There is systolic murmur left sternal border and the apex there is no rub. ABDOMEN: Is soft obese. The surgical dressing is dry. Bowel sounds are slightly diminished. There is no hepatosplenic megaly. EXTREMITIES: Femorals are deep. Femorals are diminished. Leg pulses are diminished. There is trace pedal edema. There is no DVT or cellulitis. There is no cyanosis or clubbing. LIQUOR RECTIFIER and PSYCHIATRIC: Not examined since the patient is intubated and sedated. 01/31/18 02/06/1802/07/18 04:27 15:22 05:05 WBC 13.4 H RBC 4.40 Hgb 11.7 L Hct 36.3 MCV 82 MCH 26.5 L RDW 17.7 H Plt Count 150 Seg Neutrophils % 66.9 Lymphocytes % 9.6 L Monocytes % 13.4 H Eosinophils % 9.3 H Basophils % 0.8 Absolute Neutrophils 9.0 H Absolute Lymphocytes 1.3 Absolute Monocytes 1.8 H Absolute Eosinophils 1.2 H Absolute Basophils 0.1 PT 15.2 INR 1.14 Carbonic Acid HCO3/H2CO3 Ratio ABG pH ABG pCO2 ABG pO2 ABG HCO3 ABG O2 Saturation ABG Base Excess FiO2 Sodium Potassium Chloride Carbon Dioxide Anion Gap BUN Creatinine Est GFR ( Amer) Glucose POC Glucose Hemoglobin A1c % 12.0 H Calcium Phosphorus Total Bilirubin Direct Bilirubin Neonat Total Bilirubin Neonat Direct Bilirubin Neonat Indirect Bili AST ALT Alkaline Phosphatase Creatine Kinase CK-MB (CK-2) Troponin I 02/07/18 02/08/18 02/08/18 19:00 04:20 04:20 WBC RBC Hgb Hct MCV MCH RDW Plt Count Seg Neutrophils % Lymphocytes % Monocytes % Eosinophils % Basophils % Absolute Neutrophils Absolute Lymphocytes Absolute Monocytes Absolute Eosinophils Absolute Basophils PT INR Carbonic Acid HCO3/H2CO3 Ratio ABG pH ABG pCO2 ABG pO2 ABG HCO3 ABG O2 Saturation ABG Base Excess FiO2 Sodium 138.5 Potassium 4.9 Chloride 103 Carbon Dioxide 20 L Anion Gap 16 BUN 31 H Creatinine 6.66 H Est GFR ( Amer) 8 L Glucose 316 H POC Glucose Hemoglobin A1c % Calcium 7.9 L Phosphorus Total Bilirubin 1.7 H Direct Bilirubin 1.5 H Neonat Total Bilirubin Not Reportable Neonat Direct Bilirubin Not Reportable Neonat Indirect Bili Not Reportable AST 35 ALT 8 L Alkaline Phosphatase 145 H Creatine Kinase 348 H CK-MB (CK-2) 1.20 1.20 Troponin I 0.110 0.811 02/08/18 02/08/18 02/08/18 04:20 04:25 07:15 WBC RBC Hgb Hct MCV MCH RDW Plt Count Seg Neutrophils % Lymphocytes % Monocytes % Eosinophils % Basophils % Absolute Neutrophils Absolute Lymphocytes Absolute Monocytes Absolute Eosinophils Absolute Basophils PT INR Carbonic Acid 0.64 L HCO3/H2CO3 Ratio 30:1 ABG pH 7.58 H ABG pCO2 21.1 L ABG pO2 142.0 H ABG HCO3 19.4 L ABG O2 Saturation 99.2 H ABG Base Excess -0.5 FiO2 50% Sodium Potassium Chloride Carbon Dioxide Anion Gap BUN Creatinine Est GFR ( Amer) Glucose POC Glucose 312 H Hemoglobin A1c % Calcium Phosphorus 5.1 H Total Bilirubin Direct Bilirubin Neonat Total Bilirubin Neonat Direct Bilirubin Neonat Indirect Bili AST ALT Alkaline Phosphatase Creatine Kinase CK-MB (CK-2) Troponin I 02/08/18 02/08/18 08:47 11:45 WBC RBC Hgb Hct MCV MCH RDW Plt Count Seg Neutrophils % Lymphocytes % Monocytes % Eosinophils % Basophils % Absolute Neutrophils Absolute Lymphocytes Absolute Monocytes Absolute Eosinophils Absolute Basophils PT INR Carbonic Acid HCO3/H2CO3 Ratio ABG pH ABG pCO2 ABG pO2 ABG HCO3 ABG O2 Saturation ABG Base Excess FiO2 Sodium 137.6 Potassium 3.6 D Chloride 106 Carbon Dioxide 19 L Anion Gap 13 BUN 31 H Creatinine 6.49 H Est GFR ( Amer) 8 L Glucose 307 H POC Glucose Hemoglobin A1c % Calcium 8.0 L Phosphorus Total Bilirubin Direct Bilirubin Neonat Total Bilirubin Neonat Direct Bilirubin Neonat Indirect Bili AST ALT Alkaline Phosphatase Creatine Kinase 296 H CK-MB (CK-2) 1.10 Troponin I 1.090 01/30/18 22:00 Heparin Sodium,Porcine [Heparin Inj 5,000 Units/ml 1 ml Syringe] 5,000 unit SUBCUT Q8 01/30/18 22:30 Metoprolol Succinate [Toprol Xl 50 mg Tab.sr] 100 mg PO DAILY 02/01/18 19:15 Pharmacy Communication [Medication Communication Order] 1 each .NOTICE NR 02/02/18 00:30 Diphenhydramine HCl [Benadryl 50 mg Capsule] 50 mg PO Q8HP PRN Ondansetron [Zofran Odt 4 mg Tablet] 4 mg PO Q4HP PRN 02/02/18 07:50 Ondansetron HCl/Pf [Zofran Inj/Pf 4 mg/2 ml Sdv] 4 mg IV Q4HP PRN 02/02/18 10:00 Hydrochlorothiazide [Hydrodiuril 25 mg Tablet] 25 mg PO DAILY 02/03/18 17:44 Fentanyl Citrate/Pf [Sublimaze Inj/Pf 250 Mcg/5 ml Ampule] 250 mcg .ROUTE .STK-MED ONE 02/03/18 17:45 Acetaminophen [Ofirmev Inj/Pf 1000 mg/100 ml Sdv] 1,000 mg in 100 ml IV .STK-MED Midazolam HCl [Versed 2 mg/2 ml Inj] 2 mg .ROUTE .STK-MED ONE Morphine Sulfate [Morphine 10 mg/ml Inj] 10 mg .ROUTE .STK-MED ONE Propofol [Diprivan Inj 200 mg/20 ml Vial] 200 mg IV .STK-MED ONE 02/03/18 18:45 Cefazolin Sodium [Ancef Inj 1 gm Vial] 1 gm .ROUTE .STK-MED ONE 02/03/18 19:08 Fentanyl Citrate/Pf [Sublimaze Inj/Pf 250 Mcg/5 ml Ampule] 250 mcg .ROUTE .STK-MED ONE 02/03/18 19:09 Morphine Sulfate [Morphine 10 mg/ml Inj] 10 mg .ROUTE .STK-MED ONE 02/03/18 19:38 Heparin Sodium,Porcine [Heparin Flush 10 Unit/ml 5 ml Disp.syrg] 30 unit IV . AFTER EACH USE PRN Normal Saline [NaCl 0.9% Inj/Pf 10 ml Sdv] 10 ml IV .AFTER EACH USE PRN 02/03/18 22:00 Heparin Sodium,Porcine [Heparin Flush 10 Unit/ml 5 ml Disp.syrg] 30 unit IV Q8 02/03/18 22:23 Propofol [Diprivan RTU 1000 mg/100 ml Inf.bottle] 1,000 mg in 100 ml IV CONTINUOUS 02/04/18 01:05 Normal Saline 1000 ml [NaCl 0.9% 1000 ml IV Soln] 1,000 ml IV CONTINUOUS 02/04/18 12:10 Midazolam HCl [Versed 2 mg/2 ml Inj] 4 mg IV Q4HP PRN 02/04/18 12:12 Fentanyl Citrate/Pf [Sublimaze Inj/Pf 100 Mcg/2 ml Ampule] 75 mcg IV Q4HP PRN 02/06/18 15:30 Amino Acids 5%/D25w [Clinimix 5%-25% TPN Solution 1000 ml Bag] 1,000 ml IV .CONTINUOUS Dextrose 10%-Water [D10w 1000 ml IV Soln] 1,000 ml IV .TEMPORARY Dextrose 50%-Water [Dextrose Inj 50% Syringe (25 gm/50 ml)] 12.5 gm IV PRN PRN Dextrose 50%-Water [Dextrose Inj 50% Syringe (25 gm/50 ml)] 25 gm IV PRN PRN Dextrose [Glutose 40% Gel 15 gm Tube] 15 gm PO PRN PRN Dextrose [Glutose 40% Gel 15 gm Tube] 30 gm PO PRN PRN Glucagon,Human Recombinant [Glucagen Inj 1 mg Vial] 1 mg IM PRN PRN Insulin Regular, Human [Humulin R (Pyxis) Insulin 100 Unit/ml 3Ml] 0 - 12 unit SUBCUT Q6HP PRN 02/07/18 15:37 Norepinephrine Bitartrate [Levophed Inj/Pf 4 mg/4 ml Sdv] 4 mg IV .STK-MED ONE 02/07/18 15:45 Normal Saline 1000 ml [NaCl 0.9% 1000 ml IV Soln] 1,000 ml IV BOLUS 02/07/18 16:30 Normal Saline 1000 ml [NaCl 0.9% 1000 ml IV Soln] 1,000 ml IV BOLUS 02/07/18 17:06 Norepinephrine Bitartrate [Levophed Inj/Pf 4 mg/4 ml Sdv] 4 mg Dextrose 5%- Water [D5w 250 ml IV Soln] 250 ml IV CONTINUOUS Normal Saline 1000 ml [NaCl 0.9% 1000 ml IV Soln] 1,000 ml IV CONTINUOUS 02/07/18 18:45 Ipratropium/Albuterol Sulfate [Duoneb 3 ml Ampul] 3 ml NEB RTNOW ONE 02/07/18 19:00 Insulin Lispro [Humalog Insulin 100 Unit/1 ml 3 ml Vial] 25 unit SUBCUT NOW ONE 02/07/18 19:53 Vasopressin [Vasopressin Inj 20 Unit/1 ml Vial] 20 unit .ROUTE .STK-MED ONE 02/07/18 20:15 Vasopressin [Vasopressin Inj 20 Unit/1 ml Vial] 100 unit Dextrose 5%-Water [D5w 250 ml IV Soln] 250 ml IV CONTINUOUS CHEST X-ray: Shows massive cardiomegaly. No failure. No infiltrates. EKG: Shows sinus rhythm. Nonspecific T wave changes in anterolateral leads, with the T inversion in 1 and aVL being slightly more prominent than prior EKGs. IMPRESSION /RECOMMENDATION: 1.Abnormal EKG with slightly more pronounced new EKG changes: This is probably secondary to the patient's hypotension, and renal failure. No definite evidence of non-ST elevation PR. Later in view of the patient's EKG changes, and the patient multiple CAD risk factors, would recommend IV Lexiscan Cardiolite stress test when the patient is stable. Continue beta-blockers. Recommend adding aspirin. Later once the blood pressure appears to be stable then would start the patient on nitrates topically. 2. Elevated troponin I: Most likely secondary to patient's hypotension that required pressors to bring the blood pressure up. 3. Hyportension: Postoperatively: At present patient blood pressure is good of assess, and the patient was able to undergo dialysis today. 4. Small bowel obstruction, status post surgery for lysis of adhesions. Small bowel obstruction has been relieved. 5. History of hypertension: At present blood pressure is good off pressors. 6. Diabetes mellitus. With nephropathy, and neuropathy, and gastropathy. Continue antidiabetic medication. 7. END STAGE RENAL DISEASE: Continue hemodialysis as per schedule. 8. History of sleep apnea: On CPAP at home. Once off the ventilator would recommend continue the patient's CPAP at night. 9. History of depression. 10. Morbid obesity. Note medications have been reviewed medication discussed with attending physician. Management plan discussed with attending physician on the case. Medical decision making is of high complexity. 60 minutes spent on this patient, with more than 50% of time spent in direct patient care. We will follow with you.
[2018-02-09] MEDS: INSULIN REG, HUMAN 100 UNIT/ML 3 ML VIAL (PYX) SUBCUT PRN ×4 (02:22→18:09)
[2018-02-09 05:05] LABS: ABSOLUTE BASOPHILS # (AUTO) 0.2 10^3/uL (0.0-0.2); ABSOLUTE EOSINOPHILS # (AUTO) 0.7 10^3/uL (0.0-0.6); ABSOLUTE LYMPHOCYTES (AUTO) 1.5 10^3/uL (0.5-4.7); ABSOLUTE MONOCYTES (AUTO) 2.1 10^3/uL (0.1-1.4); BASOPHILS % (AUTO) 1.2 % (0-2); EOSINOPHILS % (AUTO) 4.1 % (0-6); HEMATOCRIT 31.9 % (36.0-47.0); HEMOGLOBIN 10.1 g/dL (12.0-15.5); LYMPHOCYTES % (AUTO) 8.4 % (13-45); MEAN CORPUSCULAR HEMOGLOBIN 25.9 pg (27.0-33.4); MEAN CORPUSCULAR HGB CONC 31.6 g/dL (32.0-36.0); MEAN CORPUSCULAR VOLUME 82 fl (80-97); MONOCYTES % (AUTO) 12.1 % (3-13); PLATELET COUNT 158 10^3/uL (150-450); RED CELL DISTRIBUTION WIDTH 18.3 % (11.5-14.0); SEGMENTED NEUTROPHILS % (AUTO) 74.2 % (42-78); TOTAL CELLS COUNTED % (AUTO) 100 %; WHITE BLOOD COUNT 17.6 10^3/uL (4.0-10.5)
[2018-02-09 05:09] LABS: ARTERIAL BLOOD BASE EXCESS 6.3 mmol/L; ARTERIAL BLOOD H2CO3 0.73 mmol/L (1.05-1.35); ARTERIAL BLOOD HCO3 26.3 mmol/L (20-24); ARTERIAL BLOOD O2 SATURATION 99.3 % (94-98); ARTERIAL BLOOD PCO2 24.3 mmHg (35-45); ARTERIAL BLOOD TOTAL CO2 27.1 mmol/L (21-25)
[2018-02-09 05:19] LABS: ALANINE AMINOTRANSFERASE 12 U/L (9-52); ALBUMIN 2.6 g/dL (3.5-5.0); ALKALINE PHOSPHATASE 172 U/L (38-126); ANION GAP 12 (5-19); ASPARTATE AMINO TRANSFERASE 25 U/L (14-36); BILIRUBIN,DIRECT 1.8 mg/dL (0.0-0.4); BILIRUBIN,TOTAL 2.6 mg/dL (0.2-1.3); BLOOD UREA NITROGEN 25 mg/dL (7-20); CALCIUM 8.4 mg/dL (8.4-10.2); CARBON DIOXIDE 27 mmol/L (22-30); CHLORIDE 99 mmol/L (98-107); PHOSPHORUS 3.6 mg/dL (2.5-4.5); SODIUM 138.1 mmol/L (137-145); TOTAL PROTEIN 5.4 g/dL (6.3-8.2)
[2018-02-09] MEDS: HEPARIN SOD (PORCINE) 5,000 UNIT/ML 1 ML SYRINGE SUBCUT SCH ×3 (05:22→22:57)
[2018-02-09 05:24] LABS: ARTERIAL BLOOD FIO2 50%; ARTERIAL BLOOD PH 7.65 (7.35-7.45)
[2018-02-09 05:26] LABS: PREALBUMIN 10.8 mg/dL (17.6-36.0)
[2018-02-09 05:34] LABS: GLUCOSE 411 mg/dL (75-110)
[2018-02-09] MEDS: AMINO ACIDS 5%/D25W 1,000 ML IV PRN (08:05)
--- NOTE | 2018-02-09 09:21 | RADIOLOGY REPORT (SQ) ---
EXAM DESCRIPTION: CHEST SINGLE VIEW COMPLETED DATE/TIME: 02/09/2018 6:49 am REASON FOR STUDY: resp failure/chf/crf COMPARISON: Previous day. NUMBER OF VIEWS: One view. TECHNIQUE: Single frontal radiographic image of the chest acquired. LIMITATIONS: None. FINDINGS: LUNGS AND PLEURA: Partial silhouetting left diaphragm. Right lung is clear. No pneumotho rax. MEDIASTINUM AND HEART: Stable heart size and mediastinal structures. SUPPORT DEVICES: Appropriate location without change. BONY STRUCTURES: No acute findings. HARDWARE: None. OTHER: No other significant finding. IMPRESSION: Increasing atelectasis or pneumonia left lower lobe. No pneumothorax. Reading location - IP/workstation name: [email or web address]
--- NOTE | 2018-02-09 11:06 | PDOC PROGRESS REPORT ---
Subjective Progress Note for:: 02/09/18 Subjective:: Patient intubated, in the ICU, following simple commands; fatigue; increase mucus secretions Reason For Visit: PERSISTENT VOMITING ? DIABETES Physical Exam Vital Signs: Temp Pulse Resp BP Pulse Ox 98.6 F 91 26 H 126/61 H 93 02/09/18 09:57 02/08/18 22:00 02/09/18 09:25 02/09/18 09:25 02/09/18 09:25 Intake & Output 02/08/18 02/09/18 02/10/18 06:59 06:59 06:59 Intake Total 2431 1183 Output Total 300 2050 0 Balance 2131 -867 0 Weight 110.3 kg 112.4 kg General appearance: PRESENT: no acute distress - Patient now off; inconsistently following commands GI/Abdominal exam: PRESENT: other - Midline dressing removed; sumeet intact; no drainage infection cellulitic changes etc. Results Laboratory Results: 02/09/18 04:41 02/09/18 04:41 02/09/18 02/09/18 02/09/18 04:41 04:41 04:41 WBC 17.6 H RBC 3.90 Hgb 10.1 L Hct 31.9 L MCV 82 MCH 25.9 L MCHC 31.6 L RDW 18.3 H Plt Count 158 Seg Neutrophils % 74.2 Lymphocytes % 8.4 L Monocytes % 12.1 Eosinophils % 4.1 Basophils % 1.2 Absolute Neutrophils 13.0 H Absolute Lymphocytes 1.5 Absolute Monocytes 2.1 H Absolute Eosinophils 0.7 H Absolute Basophils 0.2 Carbonic Acid 0.73 L HCO3/H2CO3 Ratio 36:1 ABG pH 7.65 H* ABG pCO2 24.3 L ABG pO2 141.0 H ABG HCO3 26.3 H ABG O2 Saturation 99.3 H ABG Base Excess 6.3 FiO2 50% Sodium 138.1 Potassium 4.0 Chloride 99 Carbon Dioxide 27 Anion Gap 12 BUN 25 H Creatinine 5.00 H Est GFR ( Amer) 11 L Est GFR (Non-Af Amer) 9 L Glucose 411 H* Calcium 8.4 Phosphorus 3.6 Total Bilirubin 2.6 H AST 25 ALT 12 Alkaline Phosphatase 172 H Total Protein 5.4 L Albumin 2.6 L Prealbumin 10.8 L 01/30/18 01/30/18 01/30/18 22:08 22:08 22:08 Creatine Kinase 48 CK-MB (CK-2) 0.76 Troponin I 0.054 NT-Pro-B Natriuret Pep 64522 H 01/31/18 01/31/18 01/31/18 04:27 04:27 13:17 Creatine Kinase 47 72 CK-MB (CK-2) 0.96 Troponin I 0.068 NT-Pro-B Natriuret Pep 01/31/18 01/31/18 01/31/18 13:17 18:20 18:20 Creatine Kinase 58 CK-MB (CK-2) 1.53 1.59 Troponin I 0.079 0.081 NT-Pro-B Natriuret Pep 02/07/18 02/07/18 02/08/18 19:00 19:00 04:20 Creatine Kinase 376 H 348 H CK-MB (CK-2) 1.20 Troponin I 0.110 NT-Pro-B Natriuret Pep 02/08/18 02/08/18 02/08/18 04:20 08:47 11:45 Creatine Kinase 296 H CK-MB (CK-2) 1.20 1.10 Troponin I 0.811 1.090 NT-Pro-B Natriuret Pep Impressions: Gastric Emptying Nuclear Medicine 01/30/18 00:00 IMPRESSION: No emptying of the administered activity from the stomach over 2 hours. KUB X-Ray 02/02/18 11:00 IMPRESSION: THE TIP OF THE NASOGASTRIC TUBE IN THE STOMACH. Abdomen Ultrasound 02/03/18 00:00 IMPRESSION: Post cholecystectomy. Otherwise unremarkable study Abdomen/Pelvis CT 02/03/18 07:00 IMPRESSION: Small bowel obstruction with transition point in the midline pelvis. Head CT 02/08/18 00:00 IMPRESSION: No significant change. Chronic white matter changes. Focal encephalomalacia medial left occipital lobe EVIDENCE OF ACUTE STROKE: NO. Chest X-Ray 02/09/18 06:00 IMPRESSION: Increasing atelectasis or pneumonia left lower lobe. No pneumothorax. Assessment & Plan - Diagnosis (1) Small bowel obstruction Is this a current diagnosis for this admission?: Yes Plan: Impression: Patient is 6 days status post exploratory laparotomy, lysis of adhesions on the ventilator, slow to wake up; undergoing dialysis; rising leukocytosis and increased pulmonary secretions concerning for evolving pneumonia Recommendations: 1. Ventilatory management per medicine service 2. We will clamp NG tube; if tolerated, may be able to start low volume tube feeds. 3. Discussed patient's management with patient's daughter at bedside. (2) Diabetic gastroparesis Is this a current diagnosis for this admission?: Yes
[2018-02-09] MEDS ORDERED: OLANZAPINE INJ/PF 10 MG SDV IM ONE (11:38)
[2018-02-09] MEDS ORDERED: MIDAZOLAM 2 MG/2 ML INJ IV PRN (11:41)
[2018-02-09] MEDS ORDERED: VANCOMYCIN HCL 0 MG in DEXTROSE 5%-WATER 250 ML IV NR (12:30)
[2018-02-09] MEDS ORDERED: AZTREONAM 1.5 GM in DEXTROSE 5%-WATER 100 ML IV SCH (14:00)
--- NOTE | 2018-02-09 14:43 | PDOC PROGRESS REPORT ---
Subjective Progress Note for:: 02/09/18 Subjective:: Patient is currently intubated and sedated. She is currently on vssopressin for low blood pressure. Recently had a sputum culture due to increased white count and increased sputum production. Chest x-ray also correlated a concern for pneumonia. Currently working on weaning trials, but failing. Reason For Visit: PERSISTENT VOMITING ? DIABETES Physical Exam Vital Signs: Temp Pulse Resp BP Pulse Ox 97.8 F 91 38 H 133/64 H 92 02/09/18 13:43 02/08/18 22:00 02/09/18 12:00 02/09/18 11:55 02/09/18 12:52 Intake & Output 02/08/18 02/09/18 02/10/18 06:59 06:59 06:59 Intake Total 2431 1183 Output Total 300 2050 0 Balance 2131 -867 0 Weight 110.3 kg 112.4 kg General appearance: PRESENT: no acute distress, morbidly obese, well-developed, well-nourished, other - -intubated Mouth exam: PRESENT: moist, neck supple Neck exam: ABSENT: JVD, tracheal deviation Respiratory exam: PRESENT: crackles, rhonchi. ABSENT: accessory muscle use, cl ear to auscultation charity, wheezes Cardiovascular exam: PRESENT: +S1, +S2, systolic murmur GI/Abdominal exam: PRESENT: rigid, tenderness Extremities exam: ABSENT: pedal edema, +1 edema, +2 edema Musculoskeletal exam: PRESENT: normal inspection Neurological exam: PRESENT: altered, other - -intubated and sedated. ABSENT: awake Skin exam: PRESENT: dry, intact, warm Results Laboratory Results: 02/09/18 04:41 02/09/18 04:41 02/09/18 02/09/18 02/09/18 04:41 04:41 04:41 WBC 17.6 H RBC 3.90 Hgb 10.1 L Hct 31.9 L MCV 82 MCH 25.9 L MCHC 31.6 L RDW 18.3 H Plt Count 158 Seg Neutrophils % 74.2 Lymphocytes % 8.4 L Monocytes % 12.1 Eosinophils % 4.1 Basophils % 1.2 Absolute Neutrophils 13.0 H Absolute Lymphocytes 1.5 Absolute Monocytes 2.1 H Absolute Eosinophils 0.7 H Absolute Basophils 0.2 Carbonic Acid 0.73 L HCO3/H2CO3 Ratio 36:1 ABG pH 7.65 H* ABG pCO2 24.3 L ABG pO2 141.0 H ABG HCO3 26.3 H ABG O2 Saturation 99.3 H ABG Base Excess 6.3 FiO2 50% Sodium 138.1 Potassium 4.0 Chloride 99 Carbon Dioxide 27 Anion Gap 12 BUN 25 H Creatinine 5.00 H Est GFR ( Amer) 11 L Est GFR (Non-Af Amer) 9 L Glucose 411 H* Calcium 8.4 Phosphorus 3.6 Total Bilirubin 2.6 H AST 25 ALT 12 Alkaline Phosphatase 172 H Total Protein 5.4 L Albumin 2.6 L Prealbumin 10.8 L 01/30/18 01/30/18 01/30/18 22:08 22:08 22:08 Creatine Kinase 48 CK-MB (CK-2) 0.76 Troponin I 0.054 NT-Pro-B Natriuret Pep 00034 H 01/31/18 01/31/18 01/31/18 04:27 04:27 13:17 Creatine Kinase 47 72 CK-MB (CK-2) 0.96 Troponin I 0.068 NT-Pro-B Natriuret Pep 01/31/18 01/31/18 01/31/18 13:17 18:20 18:20 Creatine Kinase 58 CK-MB (CK-2) 1.53 1.59 Troponin I 0.079 0.081 NT-Pro-B Natriuret Pep 02/07/18 02/07/18 02/08/18 19:00 19:00 04:20 Creatine Kinase 376 H 348 H CK-MB (CK-2) 1.20 Troponin I 0.110 NT-Pro-B Natriuret Pep 02/08/18 02/08/18 02/08/18 04:20 08:47 11:45 Creatine Kinase 296 H CK-MB (CK-2) 1.20 1.10 Troponin I 0.811 1.090 NT-Pro-B Natriuret Pep Impressions: Gastric Emptying Nuclear Medicine 01/30/18 00:00 IMPRESSION: No emptying of the administered activity from the stomach over 2 hours. KUB X-Ray 02/02/18 11:00 IMPRESSION: THE TIP OF THE NASOGASTRIC TUBE IN THE STOMACH. Abdomen Ultrasound 02/03/18 00:00 IMPRESSION: Post cholecystectomy. Otherwise unremarkable study Abdomen/Pelvis CT 02/03/18 07:00 IMPRESSION: Small bowel obstruction with transition point in the midline pelvis. Head CT 02/08/18 00:00 IMPRESSION: No significant change. Chronic white matter changes. Focal encephalomalacia medial left occipital lobe EVIDENCE OF ACUTE STROKE: NO. Chest X-Ray 02/09/18 06:00 IMPRESSION: Increasing atelectasis or pneumonia left lower lobe. No pneumothorax. Assessment & Plan - Diagnosis (1) Small bowel obstruction Is this a current diagnosis for this admission?: Yes Plan: 6th day post op, still not able to extubate (2) Diabetic gastroparesis Is this a current diagnosis for this admission?: Yes Plan: on reglan (3) End stage chronic kidney disease Is this a current diagnosis for this admission?: Yes Plan: Will look to arrange for dialysis tomorrow and see if any extra fluid can be pulled off. Looking clinically and at the chest x-ray she does not look to have extra fluid on her. (4) Anemia in chronic kidney disease Qualifiers: Chronic kidney disease stage: stage 3 (moderate) Qualified Code(s): N18.3 - Chronic kidney disease, stage 3 (moderate); D63.1 - Anemia in chronic kidney disease; D63.1 - Anemia in chronic kidney disease Plan: will assess iron levels tomorrow and see if IV iron is needed. (5) CHF (congestive heart failure) Qualifiers: Qualified Code(s): I50.43 - Acute on chronic combined systolic (congestive) and diastolic (congestive) heart failure Plan: Stable currently (6) Hypertension Plan: currently on vasopressen
--- NOTE | 2018-02-09 15:03 | PDOC CONSULTATION ---
Consultation Consult Date: 02/04/18 Attending physician:: ROBERTO SALDANA Consult reason:: Respiratory failure History of Present Illness Admission Date/PCP: 01/30/18 18:08 ROBERTO SALDANA MD History of Present Illness: MARIOLA GAR is a 58 year old female, standing diabetes and diabetic retinopathy neuropathy as well as gastroparesis since present with increasing nausea and vomiting of 7 days prior to admission she was evaluated by surgery of [facility] and subsequently underwent exploratory lap with reduction of her hernia and lysis of adhesions. She is currently intubated and sedated per family she has never smoked does not use oxygen at home dose. She has advanced neuropathy and at times when she is noncompliant with her medications she has a history of obstructive sleep apnea tends not compliant with her CPAP Past Medical History Cardiac Medical History: Reports: Congestive Heart Failure, Coronary Artery Disease, Myocardial Infarction - 2007, Hyperlipidema, Hypertension Pulmonary Medical History: Reports: Sleep Apnea - On CPap Denies: Asthma, Bronchitis, Chronic Obstructive Pulmonary Disease (COPD), Pneumonia Neurological Medical History: Denies: Seizures Endocrine Medical History: Reports: Diabetes Mellitus Type 1, Diabetes Mellitus Type 2, Hypothyroidism, Obesity Renal/ Medical History: Reports: End Stage Renal Disease GI Medical History: Reports: Gastroesophageal Reflux Disease Musculoskeltal Medical History: Reports: Arthritis, Gout Psychiatric Medical History: Reports: Depression Hematology: Reports: Anemia Past Surgical History Past Surgical History: Reports: Appendectomy, Section, Cholecystectomy, Hysterectomy, Orthopedic Surgery - cancer removed from back, Other - parathyroidectomy, 3-1/2 glands removed on 01/13/2016; right adrenalectomy Social History Information Source: Relative, [facility] Records Smoking Status: Never Smoker Frequency of Alcohol Use: None Hx Recreational Drug Use: No Drugs: None Hx Prescription Drug Abuse: No - Advance Directive Resuscitation Status: Full Code Family History Parental Family History Reviewed: No Children Family History Reviewed: No Medication/Allergy Home Medications: Insulin Glargine,Hum.rec.anlog [Lantus Solostar] 10 unit SQ DAILY 12/13/17 Insulin Lispro [Humalog Insulin (Lispro) 100 unit/mL] 10 unit INJ TID 12/13/17 Midodrine HCl 10 mg PO ASDIR PRN 12/13/17 Nortriptyline HCl [Pamelor] 50 mg PO QHS 12/13/17 Tramadol HCl [Ultram 50 mg Tablet] 50 mg PO Q6HP PRN 12/13/17 Ondansetron [Zofran Odt 4 mg Tablet] 1 - 2 tab PO Q4H PRN #15 tab.rapdis 01/11/18 Metoclopramide HCl [Reglan 10 mg Tablet] 10 mg PO Q8H PRN 10 Days #30 tablet 01/18/18 Amitriptyline HCl [Elavil 75 Mg Tablet] 75 mg PO DAILY 01/31/18 Calcitriol [Rocaltrol] 2 tab PO DAILY 01/31/18 Clonazepam [Klonopin 1 mg Tablet] 1 mg PO BID 01/31/18 Diphenhydramine HCl [Benadryl] 50 mg PO Q4 01/31/18 Duloxetine HCl [Cymbalta] 60 mg PO DAILY 01/31/18 Gabapentin [Neurontin 300 mg Capsule] 300 mg PO Q8 01/31/18 Hydralazine HCl [Apresoline 25 mg Tablet] 25 mg PO TID 01/31/18 Ranitidine HCl [Acid Control] 150 mg PO BID 01/31/18 Allergies/Adverse Reactions: labetalol [Labetalol] Allergy (Severe, Verified 01/18/18 16:01) swelling, sob Penicillins Allergy (Severe, Verified 01/18/18 16:01) itching duloxetine Allergy (Verified 01/18/18 16:01) latex Allergy (Verified 01/18/18 16:01) linagliptin [From Tradjenta] Allergy (Verified 01/18/18 16:01) terbinafine Allergy (Verified 01/18/18 16:01) Liraglutide [From Victoza] Adverse Reaction (Verified 01/18/18 16:01) nausea/vomitting Review of Systems ROS unobtainable: Due to endotracheal tube Physical Exam Vital Signs: Temp Pulse Resp BP Pulse Ox 97.0 F 64 36 H 133/56 H 100 02/04/18 10:00 02/04/18 10:00 02/04/18 10:00 02/04/18 10:00 02/04/18 10:00 Intake & Output 02/03/18 02/04/18 02/05/18 06:59 06:59 06:59 Intake Total 0 635 100 Output Total 2000 1300 Balance -2000 -665 100 Weight 106.2 kg 102.6 kg General appearance: PRESENT: disheveled, morbidly obese, well-developed, well- nourished Head exam: PRESENT: atraumatic, normocephalic Eye exam: PRESENT: conjunctiva pale. ABSENT: nystagmus, scleral icterus Mouth exam: PRESENT: dry mucosa, neck supple, tongue midline, other - ET tube Neck exam: ABSENT: carotid bruit, JVD, lymphadenopathy, thyromegaly, tracheal deviation, tracheostomy Respiratory exam: PRESENT: decreased breath sounds, prolonged expiratory phas, rales, rhonchi, unlabored. ABSENT: retraction, tachypnea Cardiovascular exam: PRESENT: RRR, +S1, +S2, tachycardia Pulses: PRESENT: normal radial pulses GI/Abdominal exam: PRESENT: soft. ABSENT: tenderness Gentrourinary exam: PRESENT: indwelling catheter Extremities exam: PRESENT: pedal edema. ABSENT: calf tenderness, clubbing, joint swelling Musculoskeletal exam: ABSENT: deformity, dislocation Neurological exam: ABSENT: awake Skin exam: PRESENT: dry, warm Results Laboratory Results: 02/04/18 05:15 02/04/18 05:15 02/03/18 02/03/18 02/03/18 17:50 20:15 20:45 WBC RBC Hgb Hct MCV MCH MCHC RDW Plt Count Seg Neutrophils % Lymphocytes % Monocytes % Eosinophils % Basophils % Absolute Neutrophils Absolute Lymphocytes Absolute Monocytes Absolute Eosinophils Absolute Basophils Carbonic Acid Cancelled 0.93 L HCO3/H2CO3 Ratio Cancelled 28:1 ABG pH Cancelled 7.54 H ABG pCO2 Cancelled 31.0 L ABG pO2 Cancelled 125.2 H ABG HCO3 Cancelled 26.2 H ABG O2 Saturation Cancelled 98.9 H ABG Base Excess Cancelled 4.3 FiO2 Cancelled 40% Sodium 140.5 Potassium 3.4 L Chloride 95 L Carbon Dioxide 31 H Anion Gap 15 BUN 28 H D Creatinine 5.01 H Est GFR ( Amer) 11 L Est GFR (Non-Af Amer) 9 L Glucose 145 H Calcium 7.9 L Phosphorus Magnesium Total Bilirubin 1.9 H AST 131 H ALT 137 H Alkaline Phosphatase 267 H Total Protein 7.2 Albumin 3.7 02/03/18 02/03/18 02/04/18 20:45 20:45 05:15 WBC 13.6 H RBC 5.23 Hgb 13.7 Hct 42.5 MCV 81 MCH 26.1 L MCHC 32.2 RDW 17.9 H Plt Count 132 L Seg Neutrophils % Lymphocytes % Monocytes % Eosinophils % Basophils % Absolute Neutrophils Absolute Lymphocytes Absolute Monocytes Absolute Eosinophils Absolute Basophils Carbonic Acid 0.98 L HCO3/H2CO3 Ratio 25:1 ABG pH 7.51 H ABG pCO2 32.4 L ABG pO2 87.6 ABG HCO3 25.2 H ABG O2 Saturation 97.4 ABG Base Excess 2.7 FiO2 30% Sodium 139.8 Potassium 3.2 L Chloride 94 L Carbon Dioxide 28 Anion Gap 18 BUN 27 H Creatinine 5.04 H Est GFR ( Amer) 11 L Est GFR (Non-Af Amer) 9 L Glucose 163 H Calcium 7.4 L Phosphorus 3.7 Magnesium 1.9 Total Bilirubin 1.8 H AST 114 H ALT 115 H Alkaline Phosphatase 243 H Total Protein 6.5 Albumin 3.3 L 02/04/18 02/04/18 05:15 05:15 WBC 14.8 H RBC 4.86 Hgb 12.7 Hct 39.7 MCV 82 MCH 26.2 L MCHC 32.1 RDW 17.9 H Plt Count 125 L Seg Neutrophils % 74.4 Lymphocytes % 12.9 L Monocytes % 11.3 Eosinophils % 0.6 Basophils % 0.8 Absolute Neutrophils 11.0 H Absolute Lymphocytes 1.9 Absolute Monocytes 1.7 H Absolute Eosinophils 0.1 Absolute Basophils 0.1 Carbonic Acid HCO3/H2CO3 Ratio ABG pH ABG pCO2 ABG pO2 ABG HCO3 ABG O2 Saturation ABG Base Excess FiO2 Sodium 137.6 Potassium 3.1 L Chloride 95 L Carbon Dioxide 25 Anion Gap 18 BUN 29 H Creatinine 6.05 H Est GFR ( Amer) 9 L Est GFR (Non-Af Amer) 7 L Glucose 182 H Calcium 7.4 L Phosphorus Magnesium Total Bilirubin AST ALT Alkaline Phosphatase Total Protein Albumin 01/30/18 01/30/18 01/30/18 22:08 22:08 22:08 Creatine Kinase 48 CK-MB (CK-2) 0.76 Troponin I 0.054 NT-Pro-B Natriuret Pep 73192 H 01/31/18 01/31/18 01/31/18 04:27 04:27 13:17 Creatine Kinase 47 72 CK-MB (CK-2) 0.96 Troponin I 0.068 NT-Pro-B Natriuret Pep 01/31/18 01/31/18 01/31/18 13:17 18:20 18:20 Creatine Kinase 58 CK-MB (CK-2) 1.53 1.59 Troponin I 0.079 0.081 NT-Pro-B Natriuret Pep Impressions: Gastric Emptying Nuclear Medicine 01/30/18 00:00 IMPRESSION: No emptying of the administered activity from the stomach over 2 hours. KUB X-Ray 02/02/18 11:00 IMPRESSION: THE TIP OF THE NASOGASTRIC TUBE IN THE STOMACH. Abdomen Ultrasound 02/03/18 00:00 IMPRESSION: Post cholecystectomy. Otherwise unremarkable study Abdomen/Pelvis CT 02/03/18 07:00 IMPRESSION: Small bowel obstruction with transition point in the midline pelvis. Chest X-Ray 02/03/18 17:23 IMPRESSION: HEART ENLARGED WITHOUT FAILURE. NO OTHER SIGNIFICANT RADIOGRAPHIC FINDING IN THE CHEST. Assessment & Plan - Diagnosis (1) End stage chronic kidney disease Is this a current diagnosis for this admission?: Yes Plan: Hemodialysis Tuesday and Tuesday (2) Acute pulmonary edema Is this a current diagnosis for this admission?: Yes Plan: Volume overload (3) CHF (congestive heart failure) Qualifiers: Qualified Code(s): I50.43 - Acute on chronic combined systolic (congestive) and diastolic (congestive) heart failure Is this a current diagnosis for this admission?: Yes Plan: Hypertensive cardiomegaly renal failure (4) Sleep apnea Qualifiers: Sleep apnea type: obstructive Qualified Code(s): G47.33 - Obstructive sleep apnea (adult) (pediatric) (5) Type 2 diabetes mellitus Qualifiers: Diabetes mellitus ad terminal makeup operator insulin use: with ad terminal makeup operator use Diabetes mellitus complication status: with kidney complications Diabetes mellitus complication detail: with chronic kidney disease Chronic kidney disease stage: on chronic dialysis Qualified Code(s): E11.22 - Type 2 diabetes mellitus with diabetic chronic kidney disease; N18.6 - End stage renal disease; Z99.2 - D ependence on renal dialysis; Z99.2 - Dependence on renal dialysis; Z99.2 - Dependence on renal dialysis; N18.6 - End stage renal disease; N18.6 - End stage renal disease; N18.6 - End stage renal disease; Z79.4 - long term (current) use of insulin; Z79.4 - long term (current) use of insulin; Z79.4 - detention (current) use of insulin; Z79.4 - long term (current) use of insulin; Z99.2 - Dependence on renal dialysis Is this a current diagnosis for this admission?: Yes Plan: Poor compliance - Time Total Critical Time (Minutes): 55
[2018-02-09] MEDS ORDERED: AZTREONAM 1 GM in DEXTROSE 5%-WATER 50 ML IV ONE (16:00)
[2018-02-09] MEDS ORDERED: VANCOMYCIN HCL 2,000 MG in DEXTROSE 5%-WATER 500 ML IV SCH (18:00)
--- NOTE | 2018-02-09 19:42 | PDOC TRANSFER SUMMARY ---
General Admission Date/PCP: 01/30/18 18:08 ROBERTO SALDANA MD Resuscitation Status: Full Code - Transfer Diagnosis (1) Small bowel obstruction Is this a current diagnosis for this admission?: Yes (2) Intractable vomiting Is this a current diagnosis for this admission?: Yes (3) Diabetic gastroparesis Is this a current diagnosis for this admission?: Yes (4) Obstructive jaundice Is this a current diagnosis for this admission?: Yes (5) End stage chronic kidney disease Is this a current diagnosis for this admission?: Yes (6) Pneumonia Is this a current diagnosis for this admission?: Yes (7) End stage chronic kidney disease Is this a current diagnosis for this admission?: Yes (8) Status post subtotal parathyroidectomy Is this a current diagnosis for this admission?: Yes (9) Type 2 diabetes mellitus Is this a current diagnosis for this admission?: Yes - Transfer Medications Home Medications: Insulin Glargine,Hum.rec.anlog [Lantus Solostar] 10 unit SQ DAILY 12/13/17 Insulin Lispro [Humalog Insulin (Lispro) 100 unit/mL] 10 unit INJ TID 12/13/17 Midodrine HCl 10 mg PO ASDIR PRN 12/13/17 Nortriptyline HCl [Pamelor] 50 mg PO QHS 12/13/17 Tramadol HCl [Ultram 50 mg Tablet] 50 mg PO Q6HP PRN 12/13/17 Amitriptyline HCl [Elavil 75 Mg Tablet] 75 mg PO DAILY 01/31/18 Calcitriol [Rocaltrol] 2 tab PO DAILY 01/31/18 Clonazepam [Klonopin 1 mg Tablet] 1 mg PO BID 01/31/18 Diphenhydramine HCl [Benadryl] 50 mg PO Q4 01/31/18 Duloxetine HCl [Cymbalta] 60 mg PO DAILY 01/31/18 Gabapentin [Neurontin 300 mg Capsule] 300 mg PO Q8 01/31/18 Hydralazine HCl [Apresoline 25 mg Tablet] 25 mg PO TID 01/31/18 Ranitidine HCl [Acid Control] 150 mg PO BID 01/31/18 Transfer Medications: Current Medications Diphenhydramine HCl (Benadryl 50 Mg Capsule) 50 mg PO Q8HP PRN PRN Reason: ITCHING Stop: 03/03/18 20:17 Heparin Sodium (Porcine) (Heparin Inj 5,000 Units/Ml 1 Ml Syringe) 5,000 unit SUBCUT Q8 [facility]ARREL Stop: 03/01/18 21:59 Last Admin: 02/09/18 05:22 Dose: 5,000 unit Documented by: Heparin Sodium (Porcine) (Heparin Flush 10 Unit/Ml 5 Ml Disp.Syrg) 30 unit IV Q8 DARREL Stop: 03/05/18 21:59 Last Admin: 02/09/18 05:23 Dose: 30 unit Documented by: Heparin Sodium (Porcine) (Heparin Flush 10 Unit/Ml 5 Ml Disp.Syrg) 30 unit IV .AFTER EACH USE PRN PRN Reason: AFTER EACH INTERMITTENT USE Stop: 03/05/18 19:37 Hydrochlorothiazide (Hydrodiuril 25 Mg Tablet) 25 mg PO DAILY [facility] Stop: 03/04/18 09:59 Last Admin: 02/08/18 18:01 Dose: 25 mg Documented by: Sodium Chloride (Nacl 0.9% 1000 Ml Iv Soln) 1,000 mls @ 70 mls/hr IV CONTINUOUS PRN PRN Reason: THIS MED IS NOT "PRN" Stop: 03/09/18 17:05 Vasopressin 100 unit/ Dextrose 250 mls @ 0 mls/hr IV CONTINUOUS PRN; Protocol PRN Reason: THIS MED IS NOT "PRN" Stop: 03/09/18 20:14 Last Admin: 02/07/18 23:11 Dose: 0.02 ml/hr, 0.02 mls/hr Documented by: Aztreonam 0.5 gm/ Dextrose 50 mls @ 100 mls/hr IV Q12 [facility] Stop: 02/17/18 09:59 Vancomycin HCl 2,000 mg/ (Dextrose) 500 mls @ 250 mls/hr IV QPM [facility] Stop: 02/16/18 17:59 Vancomycin HCl 750 mg/ (Dextrose) 250 mls @ 166.667 mls/hr IV PDIA [facility] Stop: 02/17/18 17:59 Metoprolol Succinate (Toprol Xl 50 Mg Tab.Sr) 100 mg PO DAILY [facility] Stop: 03/01/18 22:29 Last Admin: 02/08/18 18:00 Dose: 100 mg Documented by: Midazolam HCl (Versed 2 Mg/2 Ml Inj) 2 mg IV Q4HP PRN PRN Reason: ANXIETY Stop: 02/11/18 12:09 Olanzapine (Zyprexa Inj/Pf 10 Mg Sdv) 10 mg IM QHS [facility] Stop: 03/11/18 21:59 Ondansetron HCl (Zofran Odt 4 Mg Tablet) 4 mg PO Q4HP PRN PRN Reason: NAUSEA Stop: 03/03/18 20:19 Last Admin: 02/02/18 00:46 Dose: 4 mg Documented by: Ondansetron HCl (Zofran Inj/Pf 4 Mg/2 Ml Sdv) 4 mg IV Q4HP PRN PRN Reason: FOR NAUSEA/VOMITING Stop: 03/04/18 07:49 Last Admin: 02/03/18 12:26 Dose: 4 mg Documented by: Pharmacy Profile Note (Medication Communication Order) 1 each [facility] .NOTICE NR Stop: 03/03/18 19:14 Sodium Chloride (Nacl 0.9% Inj/Pf 10 Ml Sdv) 10 ml IV .AFTER EACH USE PRN PRN Reason: AFTER EACH INTERMITTENT USE Stop: 03/05/18 19:37 - Allergies Allergies/Adverse Reactions: labetalol [Labetalol] Allergy (Severe, Verified 01/18/18 16:01) swelling, sob Penicillins Allergy (Severe, Verified 01/18/18 16:01) itching duloxetine Allergy (Verified 01/18/18 16:01) latex Allergy (Verified 01/18/18 16:01) linagliptin [From Tradjenta] Allergy (Verified 01/18/18 16:01) terbinafine Allergy (Verified 01/18/18 16:01) Liraglutide [From Victoza] Adverse Reaction (Verified 01/18/18 16:01) nausea/vomitting Hospital Course Hospital Course: Patient is a 58-year-old female with multiple comorbid conditions including end- stage renal disease on maintenance hemodialysis, diabetes mellitus complicated with severe neuropathy, gastroparesis she came to the emergency room on January 30, 2018 for evaluation of vomiting. She was evaluated in the emergency room no apparent cause for the vomiting was found but the ER physician felt that patient needed to be admitted for further evaluation in the hospital. Patient is well-known to me from outpatient she has severe neuropathy the abdo men was soft initially I suspected gastroparesis., Nuclear medicine gastric emptying study was done it was abnormal it demonstrated delayed emptying time consistent with gastroparesis .On February 01, 2018 the liver enzymes pattern was consistent with obstructive pattern I suspected a pancreatic lesion and requested CT scan of the abdomen and pelvis without contrast, it demonstrated dilated scattered loops of bowel measuring up to 3 cm there was a transition point in the left lower quadrant consultation was obtained from surgery. She had laparotomy on 02/03/2018 she was found to have intra-abdominal adhesions and internal hernia adjacent to the rectum with small bowel incarceration she u nderwent open lysis of the adhesions with reduction of internal hernia.. Patient is on hemodialysis she was seen by nephrology she has been undergoing hemodialysis during hospital stay she has been n.p.o. for the last couple of days NG tube still in place to suction she had episode of low blood pressure about 3 days ago requiring the use of pressors including vasopressin and norepinephrine.Because of the low blood pressure troponin was drawn slightly elevated, peaked at 1 significance is not clear, she was seen by dip unit operator Dr. Edmonds.For the last 24 hours patient has been off sedation completely, there is minimal response CT head was done which was negative for any acute CVA, patient had a history of CVA she is also on psychotropic drug before this admission the combination of anesthesia, sedation with propofol could be partly responsible for the encephalopathy.Patient's family member RN came from [place] area yesterday, she is requesting for transfer to [facility], I called [facility] today, she was accepted in transfer based on availability of bed. There was increased white blood cell count today from From 13,000-17,000, Chest x-ray also suggest possible pneumonia so because of this finding she was started on antibiotic aztreonam and vancomycin, aztreonam was chosen because she has allergy to penicillin Physical Exam Vital Signs: Temp Pulse Resp BP Pulse Ox 97.9 F 91 14 134/65 H 98 02/09/18 17:22 02/08/18 22:00 02/09/18 18:26 02/09/18 18:26 02/09/18 18:26 Intake & Output 02/08/18 02/09/18 02/10/18 06:59 06:59 06:59 Intake Total 2431 1183 Output Total 300 2050 0 Balance 2131 -867 0 Weight 110.3 kg 112.4 kg General appearance: PRESENT: no acute distress Eye exam: PRESENT: PERRLA Respiratory exam: PRESENT: clear to auscultation [facility] GI/Abdominal exam: PRESENT: soft Results Laboratory Results: 02/09/18 04:41 02/09/18 04:41 02/09/18 02/09/18 02/09/18 04:41 04:41 04:41 WBC 17.6 H RBC 3.90 Hgb 10.1 L Hct 31.9 L MCV 82 MCH 25.9 L MCHC 31.6 L RDW 18.3 H Plt Count 158 Seg Neutrophils % 74.2 Lymphocytes % 8.4 L Monocytes % 12.1 Eosinophils % 4.1 Basophils % 1.2 Absolute Neutrophils 13.0 H Absolute Lymphocytes 1.5 Absolute Monocytes 2.1 H Absolute Eosinophils 0.7 H Absolute Basophils 0.2 Carbonic Acid 0.73 L HCO3/H2CO3 Ratio 36:1 ABG pH 7.65 H* ABG pCO2 24.3 L ABG pO2 141.0 H ABG HCO3 26.3 H ABG O2 Saturation 99.3 H ABG Base Excess 6.3 FiO2 50% Sodium 138.1 Potassium 4.0 Chloride 99 Carbon Dioxide 27 Anion Gap 12 BUN 25 H Creatinine 5.00 H Est GFR ( Amer) 11 L Est GFR (Non-Af Amer) 9 L Glucose 411 H* Calcium 8.4 Phosphorus 3.6 Total Bilirubin 2.6 H AST 25 ALT 12 Alkaline Phosphatase 172 H Total Protein 5.4 L Albumin 2.6 L Prealbumin 10.8 L 01/30/18 01/30/18 01/30/18 22:08 22:08 22:08 Creatine Kinase 48 CK-MB (CK-2) 0.76 Troponin I 0.054 NT-Pro-B Natriuret Pep 69076 H 01/31/18 01/31/18 01/31/18 04:27 04:27 13:17 Creatine Kinase 47 72 CK-MB (CK-2) 0.96 Troponin I 0.068 NT-Pro-B Natriuret Pep 01/31/18 01/31/18 01/31/18 13:17 18:20 18:20 Creatine Kinase 58 CK-MB (CK-2) 1.53 1.59 Troponin I 0.079 0.081 NT-Pro-B Natriuret Pep 02/07/18 02/07/18 02/08/18 19:00 19:00 04:20 Creatine Kinase 376 H 348 H CK-MB (CK-2) 1.20 Troponin I 0.110 NT-Pro-B Natriuret Pep 02/08/18 02/08/18 02/08/18 04:20 08:47 11:45 Creatine Kinase 296 H CK-MB (CK-2) 1.20 1.10 Troponin I 0.811 1.090 NT-Pro-B Natriuret Pep Impressions: Gastric Emptying Nuclear Medicine 01/30/18 00:00 IMPRESSION: No emptying of the administered activity from the stomach over 2 hours. KUB X-Ray 02/02/18 11:00 IMPRESSION: THE TIP OF THE NASOGASTRIC TUBE IN THE STOMACH. Abdomen Ultrasound 02/03/18 00:00 IMPRESSION: Post cholecystectomy. Otherwise unremarkable study Abdomen/Pelvis CT 02/03/18 07:00 IMPRESSION: Small bowel obstruction with transition point in the midline pelvis. Head CT 02/08/18 00:00 IMPRESSION: No significant change. Chronic white matter changes. Focal encephalomalacia medial left occipital lobe EVIDENCE OF ACUTE STROKE: NO. Chest X-Ray 02/09/18 06:00 IMPRESSION: Increasing atelectasis or pneumonia left lower lobe. No pneumothorax.
--- NOTE | 2018-02-09 19:56 | Progress Note ---
Provider Note Provider Note: CARDIOLOGY PROGRESS NOTES chicho Edmonds on 02/09/2018. SUBJECTIVE: The patient is intubated and sedated. There is no ventricular arrhythmia seen on the monitor. The patient blood pressure stable off pressors. Selected Entries 02/09/18 02/09/18 02/09/18 04:00 11:29 11:39 Temperature 97.7 F Temperature Axillary Source Heart Rate ( 82 Monitors) Respiratory 20 Rate Respiratory Normal Effort Non-Labored Mechanically Ventilated Blood Pressure Blood Pressure Mean O2 Sat by Pulse Oximetry Fraction of 50 Inspired Oxygen (FIO2) 02/09/18 11:40 Temperature Temperature Source Heart Rate ( Monitors) Respiratory 35 H Rate Respiratory Effort Blood Pressure 138/71 H Blood Pressure 93 Mean O2 Sat by Pulse 93 Oximetry Fraction of Inspired Oxygen 50 (FIO2) HEAD: Is atraumatic normocephalic. EYES: Pupils are equal round regular reactive to light. There is no conjunctival pallor. There is no scleral icterus. ENT: Is negative. NECK: Is supple. There is no JVD. Carotids equal there is no bruits. There is no goiter. Trachea central. There is no lymphadenopathy. There is no accessory muscles of respiration use. LUNGS: A few scattered rhonchi otherwise lungs are fairly clear to auscultation and percussion. HEART: S1-S2 is heard S1 is of normal intensity. There is no S3 gallop. There is no S4 gallop. There is systolic murmur left sternal border and the apex there is no rub. ABDOMEN: Is soft obese. The surgical dressing is dry. Bowel sounds are slightly diminished. There is no hepatosplenic megaly. EXTREMITIES: Femorals are deep. Femorals are diminished. Leg pulses are diminished. There is trace pedal edema. There is no DVT or cellulitis. There is no cyanosis or clubbing. CONTENT ASSISTANT and PSYCHIATRIC: Not examined since the patient is intubated and sedated. 02/09/18 02/09/18 02/09/18 04:41 04:41 04:41 WBC 17.6 H Hgb 10.1 L Hct 31.9 L Plt Count 158 Carbonic Acid 0.73 L HCO3/H2CO3 Ratio 36:1 ABG pH 7.65 H* ABG pCO2 24.3 L ABG pO2 141.0 H ABG HCO3 26.3 H ABG Total CO2 27.1 H ABG O2 Saturation 99.3 H ABG Base Excess 6.3 FiO2 50% Sodium 138.1 Potassium 4.0 Chloride 99 Carbon Dioxide 27 Anion Gap 12 BUN 25 H Creatinine 5.00 H Est GFR ( Amer) 11 L Glucose 411 H* Calcium 8.4 Phosphorus 3.6 Total Bilirubin 2.6 H Direct Bilirubin 1.8 H Neonat Total Bilirubin Not Reportable Neonat Direct Bilirubin Not Reportable Neonat Indirect Bili Not Reportable AST 25 ALT 12 Alkaline Phosphatase 172 H Total Protein 5.4 L Albumin 2.6 L Prealbumin 10.8 L IMPRESSION /RECOMMENDATION: 1.Abnormal EKG with slightly more pronounced new EKG changes: This is probably secondary to the patient's hypotension, and renal failure. No definite evidence of non-ST elevation [place]. Later in view of the patient's EKG changes, and the patient multiple CAD risk factors, would recommend IV Lexiscan Cardiolite stress test when the patient is stable. Continue beta-blockers. Recommend adding aspirin. Later once the blood pressure appears to be stable then would start the patient on nitrates topically. 2. Elevated troponin I: Most likely secondary to patient's hypotension that required pressors to bring the blood pressure up. 3. Hyportension: Postoperatively: At present patient blood pressure is good of assess, and the patient was able to undergo dialysis today. 4. Small bowel obstruction, status post surgery for lysis of adhesions. Small bowel obstruction has been relieved. 5. History of hypertension: At present blood pressure is good off pressors. 6. Diabetes mellitus. With nephropathy, and neuropathy, and gastropathy. Continue antidiabetic medication. 7. END STAGE RENAL DISEASE: Continue hemodialysis as per schedule. 8. History of sleep apnea: On CPAP at home. Once off the ventilator would recommend continue the patient's CPAP at night. 9. History of depression. 10. Morbid obesity. Note medications have been reviewed medication discussed with attending physician. Management plan discussed with attending physician on the case. Medical decision making is of high complexity. 40 minutes spent on this patient, with more than 50% of time spent in direct patient care. As per patient's family request the patient being transferred to [place]. Will sign off the case.
[2018-02-09] MEDS: HYDROCHLOROTHIAZIDE 25 MG TABLET PO SCH (20:43)
[2018-02-09] MEDS: METOPROLOL SUCCINATE 50 MG TAB.SR.24H PO SCH (20:43)
[2018-02-09] MEDS: OLANZAPINE INJ/PF 10 MG SDV IM SCH (22:57)
[2018-02-09] MEDS ORDERED: DEXTROSE 40% GEL 15 GM TUBE X 2 PO PRN (23:30)
[2018-02-09] MEDS ORDERED: DEXTROSE 40% GEL 15 GM TUBE PO PRN (23:30)
[2018-02-09] MEDS ORDERED: DEXTROSE 50%-WATER SYRINGE 25 GM/50 ML DOSE IV PRN (23:30)
[2018-02-09] MEDS ORDERED: DEXTROSE 50%-WATER SYRINGE 12.5 GM/25 ML DOSE IV PRN (23:30)
[2018-02-09] MEDS ORDERED: GLUCAGON,HUMAN RECOMB 1 MG INJ IM PRN (23:30)
[2018-02-10] MEDS: INSULIN LISPRO 100 UNIT/ML 3 ML VIAL SUBCUT PRN ×2 (00:12→05:51)
[2018-02-10 05:48] LABS: ARTERIAL BLOOD BASE EXCESS 4.4 mmol/L; ARTERIAL BLOOD H2CO3 0.98 mmol/L (1.05-1.35); ARTERIAL BLOOD HCO3 26.8 mmol/L (20-24); ARTERIAL BLOOD O2 SATURATION 98.1 % (94-98); ARTERIAL BLOOD PCO2 32.7 mmHg (35-45); ARTERIAL BLOOD PH 7.53 (7.35-7.45); ARTERIAL BLOOD PO2 97.8 mmHg (80-100); ARTERIAL BLOOD TOTAL CO2 27.8 mmol/L (21-25)
[2018-02-10 05:49] LABS: ARTERIAL BLOOD FIO2 30%
[2018-02-10] MEDS: HEPARIN SOD (PORCINE) 5,000 UNIT/ML 1 ML SYRINGE SUBCUT SCH ×3 (05:51→22:30)
[2018-02-10 05:56] LABS: HEMATOCRIT 31.8 % (36.0-47.0); HEMOGLOBIN 10.2 g/dL (12.0-15.5); MEAN CORPUSCULAR HEMOGLOBIN 25.8 pg (27.0-33.4); MEAN CORPUSCULAR HGB CONC 31.9 g/dL (32.0-36.0); MEAN CORPUSCULAR VOLUME 81 fl (80-97); PLATELET COUNT 238 10^3/uL (150-450); RED BLOOD COUNT 3.94 10^6/uL (3.72-5.28); RED CELL DISTRIBUTION WIDTH 18.1 % (11.5-14.0); WHITE BLOOD COUNT 17.7 10^3/uL (4.0-10.5)
--- NOTE | 2018-02-10 06:09 | RADIOLOGY REPORT (SQ) ---
EXAM DESCRIPTION: XR CHEST 1 VIEW COMPLETED DATE/TME: 02/10/2018 06:00 CLINICAL HISTORY: 58 years, Female, resp failure COMPARISON: 02/09/2018 chest NUMBER OF VIEWS: 1 TECHNIQUE: Vertebral chest LIMITATIONS: None. FINDINGS: Stable cardiomegaly with atheromatous change. Grossly stable indwelling lines and catheters. Osteopenia. No pneumothorax. Pulmonary vascular congestion. Hazy opacities over each lung base. IMPRESSION: Little interval change copyright 2010 [employer]- All Rights Reserved
[2018-02-10 06:10] LABS: ANION GAP 15 (5-19); BLOOD UREA NITROGEN 36 mg/dL (7-20); CALCIUM 8.9 mg/dL (8.4-10.2); CARBON DIOXIDE 25 mmol/L (22-30); CHLORIDE 99 mmol/L (98-107); GLUCOSE 237 mg/dL (75-110); SODIUM 138.9 mmol/L (137-145)
[2018-02-10 06:25] LABS: ABSOLUTE LYMPHOCYTES# (MANUAL) 1.2 10^3/uL (0.5-4.7); ABSOLUTE MONOCYTES # (MANUAL) 2.7 10^3/uL (0.1-1.4); ABSOLUTE NEUTROPHILS# (MANUAL) 13.1 10^3/uL (1.7-8.2); BAND NEUTROPHILS % (MANUAL) 1 % (3-5); BASOPHILS % (MANUAL) 1 % (0-2); EOSINOPHILS % (MANUAL) 3 % (0-6); LYMPHOCYTES % (MANUAL) 7 % (13-45); MONOCYTES % (MANUAL) 15 % (3-13); SEGMENTED NEUTROPHILS % (MAN) 73 % (42-78); TOTAL CELLS COUNTED 100
[2018-02-10 06:26] LABS: ANISOCYTOSIS 1+; PLATELET CLUMPS PRESENT; PLATELET COMMENT ADEQUATE
[2018-02-10] MEDS ORDERED: FAMOTIDINE INJ/PF 20 MG/2 ML SDV IV SCH (10:00)
[2018-02-10] MEDS ORDERED: GLUCAGON,HUMAN RECOMB 1 MG INJ IM PRN (10:47)
[2018-02-10] MEDS ORDERED: DEXTROSE 40% GEL 15 GM TUBE PO PRN (10:47)
[2018-02-10] MEDS ORDERED: DEXTROSE 50%-WATER 25 GM/50 ML DISP.SYRIN IV PRN ×2 (10:47)
[2018-02-10] MEDS ORDERED: METOCLOPRAMIDE HCL ORAL SOLN 10 MG/10 ML UDCUP NG PRN ×2 (11:01→12:30)
--- NOTE | 2018-02-10 11:46 | PDOC PROGRESS REPORT ---
Subjective Progress Note for:: 02/10/18 Subjective:: The patient is currently on hemodialysis. She seems to be comfortable. She does open her eyes to verbal stimulus but does not establish contact, tracks or follow simple commands. Reason For Visit: PERSISTENT VOMITING ? DIABETES Physical Exam Vital Signs: Temp Pulse Resp BP Pulse Ox 97.9 F 81 11 L 165/71 H 100 02/10/18 10:00 02/10/18 10:00 02/10/18 10:41 02/10/18 10:41 02/10/18 10:11 Intake & Output 02/09/18 02/10/18 02/11/18 06:59 06:59 06:59 Intake Total 1183 Output Total 2050 0 Balance -867 0 Weight 112.4 kg 113.6 kg 113.6 kg General appearance: PRESENT: no acute distress Head exam: PRESENT: normocephalic Eye exam: PRESENT: scleral icterus Mouth exam: PRESENT: other - Endotracheal tube in place Respiratory exam: PRESENT: clear to auscultation charity - Anteriorly. Inspiratory phase is ventilator dependent.. ABSENT: stridor, wheezes Cardiovascular exam: PRESENT: RRR, +S1, +S2 GI/Abdominal exam: PRESENT: diminished bowel sounds, soft, other - Pendulous abdomen. Abdominal binder in place. Gentrourinary exam: PRESENT: indwelling catheter Extremities exam: PRESENT: other - Puffy hands. Neurological exam: PRESENT: altered, other - Minimally interactive Psychiatric exam: ABSENT: agitated, anxious Focused psych exam: ABSENT: restlessness Results Laboratory Results: 02/10/18 05:30 02/10/18 05:30 02/10/18 02/10/18 02/10/18 05:30 05:30 05:30 WBC 17.7 H RBC 3.94 Hgb 10.2 L Hct 31.8 L MCV 81 MCH 25.8 L MCHC 31.9 L RDW 18.1 H Plt Count 238 Seg Neutrophils % Not Reportable Lymphocytes % Not Reportable Monocytes % Not Reportable Eosinophils % Not Reportable Basophils % Not Reportable Absolute Neutrophils Not Reportable Absolute Lymphocytes Not Reportable Absolute Monocytes Not Reportable Absolute Eosinophils Not Reportable Absolute Basophils Not Reportable Carbonic Acid 0.98 L HCO3/H2CO3 Ratio 27:1 ABG pH 7.53 H ABG pCO2 32.7 L ABG pO2 97.8 ABG HCO3 26.8 H ABG O2 Saturation 98.1 H ABG Base Excess 4.4 FiO2 30% Sodium 138.9 Potassium 4.0 Chloride 99 Carbon Dioxide 25 Anion Gap 15 BUN 36 H Creatinine 5.61 H Est GFR ( Amer) 9 L Est GFR (Non-Af Amer) 8 L Glucose 237 H Calcium 8.9 Magnesium 2.0 01/30/18 01/30/18 01/30/18 22:08 22:08 22:08 Creatine Kinase 48 CK-MB (CK-2) 0.76 Troponin I 0.054 NT-Pro-B Natriuret Pep 53270 H 01/31/18 01/31/18 01/31/18 04:27 04:27 13:17 Creatine Kinase 47 72 CK-MB (CK-2) 0.96 Troponin I 0.068 NT-Pro-B Natriuret Pep 01/31/18 01/31/18 01/31/18 13:17 18:20 18:20 Creatine Kinase 58 CK-MB (CK-2) 1.53 1.59 Troponin I 0.079 0.081 NT-Pro-B Natriuret Pep 02/07/18 02/07/18 02/08/18 19:00 19:00 04:20 Creatine Kinase 376 H 348 H CK-MB (CK-2) 1.20 Troponin I 0.110 NT-Pro-B Natriuret Pep 02/08/18 02/08/18 02/08/18 04:20 08:47 11:45 Creatine Kinase 296 H CK-MB (CK-2) 1.20 1.10 Troponin I 0.811 1.090 NT-Pro-B Natriuret Pep Impressions: Gastric Emptying Nuclear Medicine 01/30/18 00:00 IMPRESSION: No emptying of the administered activity from the stomach over 2 hours. KUB X-Ray 02/02/18 11:00 IMPRESSION: THE TIP OF THE NASOGASTRIC TUBE IN THE STOMACH. Abdomen Ultrasound 02/03/18 00:00 IMPRESSION: Post cholecystectomy. Otherwise unremarkable study Abdomen/Pelvis CT 02/03/18 07:00 IMPRESSION: Small bowel obstruction with transition point in the midline pelvis. Head CT 02/08/18 00:00 IMPRESSION: No significant change. Chronic white matter changes. Focal encephalomalacia medial left occipital lobe EVIDENCE OF ACUTE STROKE: NO. Chest X-Ray 02/10/18 06:00 IMPRESSION: Little interval change copyright 2010 [employer]- All Rights Reserved Assessment & Plan - Diagnosis (1) Acute respiratory failure with hypoxia Is this a current diagnosis for this admission?: Yes Plan: Post surgery the patient remained on the ventilator. The patient has been off of Versed since Tuesday. She is still breathing at the set rate of the ventilator. Please also see Dr. Estevez's note. (2) End stage chronic kidney disease Is this a current diagnosis for this admission?: Yes Plan: Fluid removal was impossible when the patient was hypotensive on pressors. Today her blood pressure is better. Hemodialysis is in progress with a goal of removing 5 L. To this end I am going to limit all unnecessary IV fluid. (3) Abnormal liver function tests Is this a current diagnosis for this admission?: Yes Plan: Unsure of the exact etiology. Improving metabolism with tube feeds will likely help. (4) Type 2 diabetes mellitus Qualifiers: Diabetes mellitus extermination inspector insulin use: with care home use Diabetes mellitus complication status: with kidney complications Diabetes mellitus complication detail: with chronic kidney disease Chronic kidney disease stage: on chronic dialysis Qualified Code(s): E11.22 - Type 2 diabetes mellitus with diabetic chronic kidney disease; N18.6 - End stage renal disease; Z99.2 - Dependence on renal dialysis; Z99.2 - Dependence on renal dialysis; Z99.2 - Dependence on renal dialysis; N18.6 - End stage renal disease; N18.6 - End stage renal disease; N18.6 - End stage renal disease; Z79.4 - intermediate accountant (current) use of insulin; Z79.4 - intermediate accountant (current) use of insulin; Z79.4 - [facility] (current) use of insulin; Z79.4 - intermediate accountant (current) use of insulin; Z99.2 - Dependence on renal dialysis Is this a current diagnosis for this admission?: Yes Plan: The patient has long-standing diabetes. Complications include diabetic gastroparesis as well as neuropathy. I have changed the Humalog sliding scale to a more aggressive regimen since her Accu-Cheks have been between 200 and greater than 400. This will be a more aggressive scale. In addition tube feeds with Nepro have been initiated. (5) Diabetic gastroparesis Is this a current diagnosis for this admission?: Yes Plan: The patient was on Reglan prior to this hospitalization. I am resuming her Reglan 10 mg every 8 hours to help with gastric motility. (6) Hypotension Is this a current diagnosis for this admission?: Yes Plan: The patient is now off of pressor therapy. I have split the metoprolol to 25 mg every 6 hours so the dose can be held. Parameters have been answered. (7) Intra-abdominal adhesions Is this a current diagnosis for this admission?: Yes Plan: The patient has had surgery to lyse intra-abdominal adhesions as well as reduce an incarcerated hernia. Surgery has initiated tube feeds. - Time Time Spent with patient: 35 or more minutes Medications reviewed and adjusted accordingly: Yes Anticipated discharge: [facility]
--- NOTE | 2018-02-10 12:01 | PDOC PROGRESS REPORT ---
Subjective Progress Note for:: 02/10/18 Reason For Visit: Patient seen in the ICU today while undergoing dialysis. She still remains intubated but less sedated. She is awake and able to nod her head or move her eyes to questions. She seems to be in no distress. Vital signs are stable. Labs and medications were reviewed. Discussions were done with the treating dialysis nurse. Chest x-ray was reviewed. Physical Exam Vital Signs: Temp Pulse Resp BP Pulse Ox 97.9 F 81 11 L 165/71 H 100 02/10/18 10:00 02/10/18 10:00 02/10/18 10:41 02/10/18 10:41 02/10/18 10:11 Intake & Output 02/09/18 02/10/18 02/11/18 06:59 06:59 06:59 Intake Total 1183 Output Total 2050 0 Balance -867 0 Weight 112.4 kg 113.6 kg 113.6 kg Exam: Remains intubated but not sedated. Patient is awake. Respiratory exam: PRESENT: clear to auscultation charity, decreased breath sounds. ABSENT: crackles Cardiovascular exam: PRESENT: +S1, +S2, systolic murmur GI/Abdominal exam: PRESENT: rigid, tenderness Extremities exam: PRESENT: pedal edema Neurological exam: PRESENT: awake Skin exam: ABSENT: cyanosis, erythema, mottled, rash Results Laboratory Results: 02/10/18 05:30 02/10/18 05:30 02/10/18 02/10/18 02/10/18 05:30 05:30 05:30 WBC 17.7 H RBC 3.94 Hgb 10.2 L Hct 31.8 L MCV 81 MCH 25.8 L MCHC 31.9 L RDW 18.1 H Plt Count 238 Seg Neutrophils % Not Reportable Lymphocytes % Not Reportable Monocytes % Not Reportable Eosinophils % Not Reportable Basophils % Not Reportable Absolute Neutrophils Not Reportable Absolute Lymphocytes Not Reportable Absolute Monocytes Not Reportable Absolute Eosinophils Not Reportable Absolute Basophils Not Reportable Carbonic Acid 0.98 L HCO3/H2CO3 Ratio 27:1 ABG pH 7.53 H ABG pCO2 32.7 L ABG pO2 97.8 ABG HCO3 26.8 H ABG O2 Saturation 98.1 H ABG Base Excess 4.4 FiO2 30% Sodium 138.9 Potassium 4.0 Chloride 99 Carbon Dioxide 25 Anion Gap 15 BUN 36 H Creatinine 5.61 H Est GFR ( Amer) 9 L Est GFR (Non-Af Amer) 8 L Glucose 237 H Calcium 8.9 Magnesium 2.0 01/30/18 01/30/18 01/30/18 22:08 22:08 22:08 Creatine Kinase 48 CK-MB (CK-2) 0.76 Troponin I 0.054 NT-Pro-B Natriuret Pep 27860 H 01/31/18 01/31/18 01/31/18 04:27 04:27 13:17 Creatine Kinase 47 72 CK-MB (CK-2) 0.96 Troponin I 0.068 NT-Pro-B Natriuret Pep 01/31/18 01/31/18 01/31/18 13:17 18:20 18:20 Creatine Kinase 58 CK-MB (CK-2) 1.53 1.59 Troponin I 0.079 0.081 NT-Pro-B Natriuret Pep 02/07/18 02/07/18 02/08/18 19:00 19:00 04:20 Creatine Kinase 376 H 348 H CK-MB (CK-2) 1.20 Troponin I 0.110 NT-Pro-B Natriuret Pep 02/08/18 02/08/18 02/08/18 04:20 08:47 11:45 Creatine Kinase 296 H CK-MB (CK-2) 1.20 1.10 Troponin I 0.811 1.090 NT-Pro-B Natriuret Pep Impressions: Gastric Emptying Nuclear Medicine 01/30/18 00:00 IMPRESSION: No emptying of the administered activity from the stomach over 2 hours. KUB X-Ray 02/02/18 11:00 IMPRESSION: THE TIP OF THE NASOGASTRIC TUBE IN THE STOMACH. Abdomen Ultrasound 02/03/18 00:00 IMPRESSION: Post cholecystectomy. Otherwise unremarkable study Abdomen/Pelvis CT 02/03/18 07:00 IMPRESSION: Small bowel obstruction with transition point in the midline pelvis. Head CT 02/08/18 00:00 IMPRESSION: No significant change. Chronic white matter changes. Focal encephalomalacia medial left occipital lobe EVIDENCE OF ACUTE STROKE: NO. Chest X-Ray 02/10/18 06:00 IMPRESSION: Little interval change copyright 2011 [employer]- All Rights Reserved Assessment & Plan - Diagnosis (1) End stage chronic kidney disease Is this a current diagnosis for this admission?: Yes Plan: Patient currently undergoing dialysis which is being supervised to ensure safe and smooth procedure. Blood pressure is being maintained on vasopressin. Discussed with treating nurse. We will plan to remove 4-5 l during this dialysis. Discussed with the treating nurse . (2) Intractable vomiting Qualifiers: Nausea presence: with nausea Is this a current diagnosis for this admission?: Yes Plan: In the face of acute abdomen which now is seemingly resolved status post laparotomy and lysis of adhesions along with reduction of internal hernia.I note the patient has been begun on metoclopramide at the regular dose. Given the fact that patient is ESRD I would recommend cutting down the dose to 5 mg every 8 hours after the first 24 hours. (3) Hypertension Plan: Currently she is hypotensive. Off all her antihypertensives and currently on vasopressin. Monitor. (4) Type 2 diabetes mellitus Qualifiers: Diabetes mellitus extermination inspector insulin use: with extermination inspector use Diabetes mellitus complication status: with kidney complications Diabetes mellitus complication detail: with chronic kidney disease Chronic kidney disease stage: on chronic dialysis Qualified Code(s): E11.22 - Type 2 diabetes mellitus with diabetic chronic kidney disease; N18.6 - End stage renal disease; Z99.2 - Dependence on renal dialysis; Z99.2 - Dependence on renal dialysis; Z99.2 - Dependence on renal dialysis; N18.6 - End stage renal disease; N18.6 - End stage renal disease; N18.6 - End stage renal disease; Z79.4 - M[facility] (current) use of insulin; Z79.4 - [facility] (current) use of insulin; Z79.4 - intermodal owner operator truck driver (current) use of insulin; Z79.4 - [facility] (current) use of insulin; Z99.2 - Dependence on renal dialysis Is this a current diagnosis for this admission?: Yes Plan: As per hospitalist. Blood sugars have been running better. (5) Abnormal liver function tests Is this a current diagnosis for this admission?: Yes Plan: Improving.
[2018-02-10] MEDS: AZTREONAM 0.5 GM in DEXTROSE 5%-WATER 50 ML IV SCH ×2 (12:04→22:30)
[2018-02-10] MEDS: METOPROLOL TARTRATE 25 MG TABLET NG SCH ×2 (12:04→17:34)
[2018-02-10] MEDS: HYDROCHLOROTHIAZIDE 25 MG TABLET PO SCH (12:05)
[2018-02-10] MEDS: INSULIN LISPRO 100 UNIT/ML 3 ML VIAL SUBCUT SCH ×2 (12:05→17:34)
[2018-02-10] MEDS ORDERED: VANCOMYCIN HCL 750 MG in DEXTROSE 5%-WATER 250 ML IV SCH (18:00)
[2018-02-10] MEDS ORDERED: VANCOMYCIN HCL 500 MG in DEXTROSE 5%-WATER 100 ML IV SCH (18:00)
[2018-02-10] MEDS: FAMOTIDINE 20 MG TABLET NG SCH (22:31)
[2018-02-10] MEDS: OLANZAPINE INJ/PF 10 MG SDV IM SCH (22:31)
[2018-02-11] MEDS: INSULIN LISPRO 100 UNIT/ML 3 ML VIAL SUBCUT SCH ×3 (02:20→12:38)
[2018-02-11] MEDS: METOPROLOL TARTRATE 25 MG TABLET NG SCH ×4 (02:21→17:15)
[2018-02-11 06:23] LABS: ARTERIAL BLOOD BASE EXCESS 5.6 mmol/L; ARTERIAL BLOOD H2CO3 1.25 mmol/L (1.05-1.35); ARTERIAL BLOOD HCO3 29.7 mmol/L (20-24); ARTERIAL BLOOD O2 SATURATION 97.5 % (94-98); ARTERIAL BLOOD PCO2 41.4 mmHg (35-45); ARTERIAL BLOOD PH 7.47 (7.35-7.45); ARTERIAL BLOOD PO2 92.3 mmHg (80-100); ARTERIAL BLOOD TOTAL CO2 30.9 mmol/L (21-25)
[2018-02-11 06:25] LABS: ARTERIAL BLOOD FIO2 30%
--- NOTE | 2018-02-11 06:25 | RADIOLOGY REPORT (SQ) ---
EXAM DESCRIPTION: XR CHEST 1 VIEW COMPLETED DATE/TME: 02/11/2018 06:00 CLINICAL HISTORY: 58 years, Female, resp failure COMPARISON: 02/10/2018 chest x-ray NUMBER OF VIEWS: 1 TECHNIQUE: Portable chest LIMITATIONS: None. FINDINGS: Stable cardiomegaly. Endotracheal and enteric tubes remain in place. Endovascular stent graft left axilla. Improvement in the degree of pulmonary vascular congestion. No pneumothorax. IMPRESSION: Improvement in pulmonary vascular congestion. Other findings are stable copyright 2010 [employer]- All Rights Reserved
[2018-02-11 06:26] LABS: ABSOLUTE BASOPHILS # (AUTO) 0.2 10^3/uL (0.0-0.2); ABSOLUTE EOSINOPHILS # (AUTO) 0.9 10^3/uL (0.0-0.6); ABSOLUTE LYMPHOCYTES (AUTO) 2.3 10^3/uL (0.5-4.7); ABSOLUTE MONOCYTES (AUTO) 2.1 10^3/uL (0.1-1.4); ABSOLUTE NEUT (AUTO) 11.8 10^3/uL (1.7-8.2); BASOPHILS % (AUTO) 1.1 % (0-2); EOSINOPHILS % (AUTO) 5.1 % (0-6); HEMATOCRIT 30.8 % (36.0-47.0); LYMPHOCYTES % (AUTO) 13.3 % (13-45); MEAN CORPUSCULAR HEMOGLOBIN 26.4 pg (27.0-33.4); MEAN CORPUSCULAR HGB CONC 32.4 g/dL (32.0-36.0); MEAN CORPUSCULAR VOLUME 82 fl (80-97); MONOCYTES % (AUTO) 12.3 % (3-13); PLATELET COUNT 288 10^3/uL (150-450); RED BLOOD COUNT 3.79 10^6/uL (3.72-5.28); RED CELL DISTRIBUTION WIDTH 17.8 % (11.5-14.0); SEGMENTED NEUTROPHILS % (AUTO) 68.2 % (42-78); TOTAL CELLS COUNTED % (AUTO) 100 %; WHITE BLOOD COUNT 17.2 10^3/uL (4.0-10.5)
[2018-02-11] MEDS: HEPARIN SOD (PORCINE) 5,000 UNIT/ML 1 ML SYRINGE SUBCUT SCH ×2 (06:37→15:48)
[2018-02-11 06:48] LABS: ALANINE AMINOTRANSFERASE 56 U/L (9-52); ALBUMIN 2.8 g/dL (3.5-5.0); ALKALINE PHOSPHATASE 357 U/L (38-126); ANION GAP 13 (5-19); ASPARTATE AMINO TRANSFERASE 200 U/L (14-36); BILIRUBIN,DIRECT 1.5 mg/dL (0.0-0.4); BILIRUBIN,TOTAL 1.9 mg/dL (0.2-1.3); BLOOD UREA NITROGEN 28 mg/dL (7-20); CALCIUM 9.2 mg/dL (8.4-10.2); CARBON DIOXIDE 29 mmol/L (22-30); CHLORIDE 96 mmol/L (98-107); GLUCOSE 116 mg/dL (75-110); POTASSIUM 4.4 mmol/L (3.6-5.0); SODIUM 137.9 mmol/L (137-145); TOTAL PROTEIN 5.9 g/dL (6.3-8.2)
[2018-02-11] MEDS: HYDROCHLOROTHIAZIDE 25 MG TABLET PO SCH (09:00)
[2018-02-11] MEDS: AZTREONAM 0.5 GM in DEXTROSE 5%-WATER 50 ML IV SCH (09:00)
[2018-02-11] MEDS: METOCLOPRAMIDE HCL INJ/PF 10 MG/2 ML SDV IV SCH ×2 (11:44→15:48)
[2018-02-11] MEDS: INSULIN LISPRO 100 UNIT/ML 3 ML VIAL SUBCUT PRN (19:09)
[2018-02-11] MEDS: GUAIFENESIN SYRP 200 MG/10 ML UDC PO SCH (20:20)
[2018-02-11] MEDS: ACETYLCYSTEINE 20% SOLN 800 MG/4 ML VIAL.NEB NEB SCH (20:35)
[2018-02-11] MEDS: IPRATROPIUM/ALBUTEROL 0.5-2.5 MG/3 ML AMPUL NEB PRN (20:36)
[2018-02-12] MEDS: GUAIFENESIN SYRP 200 MG/10 ML UDC PO SCH ×5 (00:24→22:06)
[2018-02-12] MEDS: HEPARIN SOD (PORCINE) 5,000 UNIT/ML 1 ML SYRINGE SUBCUT SCH ×4 (00:24→22:06)
[2018-02-12] MEDS: AZTREONAM 0.5 GM in DEXTROSE 5%-WATER 50 ML IV SCH ×3 (00:24→22:04)
[2018-02-12] MEDS: FAMOTIDINE 20 MG TABLET NG SCH ×2 (00:25→22:06)
[2018-02-12] MEDS: METOPROLOL TARTRATE 25 MG TABLET NG SCH ×4 (00:25→17:59)
[2018-02-12] MEDS: OLANZAPINE INJ/PF 10 MG SDV IM SCH ×2 (00:25→22:05)
[2018-02-12] MEDS: METOCLOPRAMIDE HCL INJ/PF 10 MG/2 ML SDV IV SCH ×4 (00:26→17:59)
[2018-02-12 06:27] LABS: ANION GAP 15 (5-19); BLOOD UREA NITROGEN 45 mg/dL (7-20); CALCIUM 9.4 mg/dL (8.4-10.2); CARBON DIOXIDE 26 mmol/L (22-30); CHLORIDE 94 mmol/L (98-107); GLUCOSE 204 mg/dL (75-110); SODIUM 135.1 mmol/L (137-145)
[2018-02-12 06:41] LABS: POTASSIUM 5.9 mmol/L (3.6-5.0)
[2018-02-12] MEDS: INSULIN LISPRO 100 UNIT/ML 3 ML VIAL SUBCUT PRN ×2 (06:45→18:22)
[2018-02-12] MEDS: ACETYLCYSTEINE 20% SOLN 800 MG/4 ML VIAL.NEB NEB SCH ×2 (08:36→21:31)
[2018-02-12 09:30] LABS: ARTERIAL BLOOD BASE EXCESS 2.9 mmol/L; ARTERIAL BLOOD H2CO3 1.32 mmol/L (1.05-1.35); ARTERIAL BLOOD HCO3 27.8 mmol/L (20-24); ARTERIAL BLOOD O2 SATURATION 95.3 % (94-98); ARTERIAL BLOOD PCO2 43.9 mmHg (35-45); ARTERIAL BLOOD PH 7.42 (7.35-7.45); ARTERIAL BLOOD PO2 75.2 mmHg (80-100); ARTERIAL BLOOD TOTAL CO2 29.1 mmol/L (21-25)
[2018-02-12 09:34] LABS: ARTERIAL BLOOD FIO2 30%
[2018-02-12] MEDS: HYDROCHLOROTHIAZIDE 25 MG TABLET PO SCH (09:51)
[2018-02-12] MEDS ORDERED: NORMAL SALINE 500 ML IV ONE (12:00)
[2018-02-12] MEDS ORDERED: DEXTROSE 5%-WATER 250 ML with NOREPINEPHRINE BITARTRATE 4 MG IV PRN ×2 (12:29)
--- NOTE | 2018-02-12 12:29 | PDOC PROGRESS REPORT ---
Subjective Progress Note for:: 02/12/18 Subjective:: First day status post decannulation. White blood cell count still remains elevated. Reason For Visit: PERSISTENT VOMITING ? DIABETES Physical Exam Vital Signs: Temp Pulse Resp BP Pulse Ox 97.9 F 75 22 H 75/51 L 97 02/12/18 11:48 02/12/18 10:00 02/12/18 11:50 02/12/18 11:04 02/12/18 11:50 Intake & Output 02/11/18 02/12/18 02/13/18 06:59 06:59 06:59 Intake Total 610 330 516 Output Total 5300 0 0 Balance -4690 330 516 Weight 107.6 kg 107.9 kg General appearance: PRESENT: no acute distress, other - Opens her eyes to verbal stimulus. Limited interaction. Head exam: PRESENT: normocephalic Eye exam: PRESENT: scleral icterus Respiratory exam: PRESENT: rhonchi - Congested breath sounds right greater than left. ABSENT: accessory muscle use, stridor, wheezes Cardiovascular exam: PRESENT: RRR, +S1, +S2 GI/Abdominal exam: PRESENT: hypoactive bowel sounds, soft, tenderness - In e pigastric area Extremities exam: PRESENT: other - Puffiness in hands slightly improved Neurological exam: PRESENT: other - Minimally responsive Results Laboratory Results: 02/11/18 06:01 02/12/18 05:20 02/12/18 02/12/18 05:20 09:15 Carbonic Acid 1.32 HCO3/H2CO3 Ratio 21:1 ABG pH 7.42 ABG pCO2 43.9 ABG pO2 75.2 L ABG HCO3 27.8 H ABG O2 Saturation 95.3 ABG Base Excess 2.9 FiO2 30% Sodium 135.1 L Potassium 5.9 H D Chloride 94 L Carbon Dioxide 26 Anion Gap 15 BUN 45 H Creatinine 6.16 H Est GFR ( Amer) 8 L Est GFR (Non-Af Amer) 7 L Glucose 204 H Calcium 9.4 01/30/18 01/30/18 01/30/18 22:08 22:08 22:08 Creatine Kinase 48 CK-MB (CK-2) 0.76 Troponin I 0.054 NT-Pro-B Natriuret Pep 71464 H 01/31/18 01/31/18 01/31/18 04:27 04:27 13:17 Creatine Kinase 47 72 CK-MB (CK-2) 0.96 Troponin I 0.068 NT-Pro-B Natriuret Pep 01/31/18 01/31/18 01/31/18 13:17 18:20 18:20 Creatine Kinase 58 CK-MB (CK-2) 1.53 1.59 Troponin I 0.079 0.081 NT-Pro-B Natriuret Pep 02/07/18 02/07/18 02/08/18 19:00 19:00 04:20 Creatine Kinase 376 H 348 H CK-MB (CK-2) 1.20 Troponin I 0.110 NT-Pro-B Natriuret Pep 02/08/18 02/08/18 02/08/18 04:20 08:47 11:45 Creatine Kinase 296 H CK-MB (CK-2) 1.20 1.10 Troponin I 0.811 1.090 NT-Pro-B Natriuret Pep Impressions: Gastric Emptying Nuclear Medicine 01/30/18 00:00 IMPRESSION: No emptying of the administered activity from the stomach over 2 hours. KUB X-Ray 02/02/18 11:00 IMPRESSION: THE TIP OF THE NASOGASTRIC TUBE IN THE STOMACH. Abdomen Ultrasound 02/03/18 00:00 IMPRESSION: Post cholecystectomy. Otherwise unremarkable study Abdomen/Pelvis CT 02/03/18 07:00 IMPRESSION: Small bowel obstruction with transition point in the midline pelvis. Head CT 02/08/18 00:00 IMPRESSION: No significant change. Chronic white matter changes. Focal encephalomalacia medial left occipital lobe EVIDENCE OF ACUTE STROKE: NO. Chest X-Ray 02/11/18 06:00 IMPRESSION: Improvement in pulmonary vascular congestion. Other findings are stable copyright 2011 [employer]- All Rights Reserved Assessment & Plan - Diagnosis (1) Acute respiratory failure with hypoxia Is this a current diagnosis for this admission?: Yes Plan: Extubated. Currently on BiPAP. (2) End stage chronic kidney disease Is this a current diagnosis for this admission?: Yes Plan: Due for dialysis tomorrow. Received a 500 cc fluid bolus today for hypotension. Will resume levo fed. (3) Abnormal liver function tests Is this a current diagnosis for this admission?: Yes Plan: Unsure of the increased LFTs. I am going to add cefepime to the antibiotic regimen. Consider CT scan of the abdomen tomorrow. We will have to coordinate with dialysis so that contrast may be given. (4) Type 2 diabetes mellitus Qualifiers: Diabetes mellitus assisted insulin use: with termite control servicer use Diabetes mellitus complication status: with kidney complications Diabetes mellitus complication detail: with chronic kidney disease Chronic kidney disease stage: on chronic dialysis Qualified Code(s): E11.22 - Type 2 diabetes mellitus with diabetic chronic kidney disease; N18.6 - End stage renal disease; Z99.2 - Dependence on renal dialysis; Z99.2 - Dependence on renal dialysis; Z99.2 - Dependence on renal dialysis; N18.6 - End stage renal disease; N18.6 - End stage renal disease; N18.6 - End stage renal disease; Z79.4 - senior living (current) use of insulin; Z79.4 - terminal operations supervisor (current) use of insulin; Z79.4 - senior living (current) use of insulin; Z79.4 - terminal operations supervisor (current) use of insulin; Z99.2 - Dependence on renal dialysis Is this a current diagnosis for this admission?: Yes Plan: Increase the Humalog for the higher end of the sliding scale. Most glucose readings are below 200. (5) Diabetic gastroparesis Is this a current diagnosis for this admission?: Yes Plan: Reglan was increased to 10 mg 4 times a day by IV (6) Hypotension Is this a current diagnosis for this admission?: Yes Plan: Pressure dropped again today. Unsure of etiology. Resume pressor therapy at this time. We will try and avoid large fluid boluses due to dependency on dialysis. (7) Internal hernia Is this a current diagnosis for this admission?: Yes Plan: Treated surgically. Bowel sounds still hypoactive. Will discuss with surgery. Consider CT scan tomorrow. With increased LFTs consider biliary tract issues. - Time Time Spent with patient: 25-34 minutes Medications reviewed and adjusted accordingly: Yes
--- NOTE | 2018-02-12 12:36 | PDOC PROGRESS REPORT ---
Subjective Progress Note for:: 02/11/18 Subjective:: The patient was extubated earlier today. She still has congested cough. She has a very weak cough so is not coughing up much mucus. Reason For Visit: PERSISTENT VOMITING ? DIABETES Physical Exam Vital Signs: Temp Pulse Resp BP Pulse Ox 98.1 F 83 25 H 112/57 L 95 02/11/18 16:00 02/11/18 08:00 02/11/18 14:41 02/11/18 14:41 02/11/18 14:41 Intake & Output 02/10/18 02/11/18 02/12/18 06:59 06:59 06:59 Intake Total 550 610 140 Output Total 0 5300 0 Balance 550 -4690 140 Weight 113.6 kg 107.6 kg General appearance: PRESENT: cooperative - Does open eyes. Difficult to follow simple commands. Head exam: PRESENT: normocephalic Mouth exam: PRESENT: other - Nasogastric tube in [id number] Respiratory exam: PRESENT: other - Still with very congested cough. As noted above she has a week cough.. ABSENT: accessory muscle use, rales, stridor, wheezes Cardiovascular exam: PRESENT: RRR, +S1, +S2 GI/Abdominal exam: PRESENT: diminished bowel sounds, soft. ABSENT: distended, tenderness Neurological exam: PRESENT: other - She does open her eyes. She does try and track. She is not able to hand squeeze or follow other simple commands. Psychiatric exam: ABSENT: agitated, anxious Results Laboratory Results: 02/11/18 06:01 02/11/18 06:01 02/11/18 02/11/18 02/11/18 06:01 06:01 06:01 WBC 17.2 H RBC 3.79 Hgb 10.0 L Hct 30.8 L MCV 82 MCH 26.4 L MCHC 32.4 RDW 17.8 H Plt Count 288 Seg Neutrophils % 68.2 Lymphocytes % 13.3 Monocytes % 12.3 Eosinophils % 5.1 Basophils % 1.1 Absolute Neutrophils 11.8 H Absolute Lymphocytes 2.3 Absolute Monocytes 2.1 H Absolute Eosinophils 0.9 H Absolute Basophils 0.2 Carbonic Acid 1.25 HCO3/H2CO3 Ratio 23:1 ABG pH 7.47 H ABG pCO2 41.4 ABG pO2 92.3 ABG HCO3 29.7 H ABG O2 Saturation 97.5 ABG Base Excess 5.6 FiO2 30% Sodium 137.9 Potassium 4.4 Chloride 96 L Carbon Dioxide 29 Anion Gap 13 BUN 28 H Creatinine 5.25 H Est GFR ( Amer) 10 L Est GFR (Non-Af Amer) 8 L Glucose 116 H Calcium 9.2 Magnesium 2.0 Total Bilirubin 1.9 H AST 200 H ALT 56 H Alkaline Phosphatase 357 H Total Protein 5.9 L Albumin 2.8 L 01/30/18 01/30/18 01/30/18 22:08 22:08 22:08 Creatine Kinase 48 CK-MB (CK-2) 0.76 Troponin I 0.054 NT-Pro-B Natriuret Pep 38132 H 01/31/18 01/31/18 01/31/18 04:27 04:27 13:17 Creatine Kinase 47 72 CK-MB (CK-2) 0.96 Troponin I 0.068 NT-Pro-B Natriuret Pep 01/31/18 01/31/18 01/31/18 13:17 18:20 18:20 Creatine Kinase 58 CK-MB (CK-2) 1.53 1.59 Troponin I 0.079 0.081 NT-Pro-B Natriuret Pep 02/07/18 02/07/18 02/08/18 19:00 19:00 04:20 Creatine Kinase 376 H 348 H CK-MB (CK-2) 1.20 Troponin I 0.110 NT-Pro-B Natriuret Pep 02/08/18 02/08/18 02/08/18 04:20 08:47 11:45 Creatine Kinase 296 H CK-MB (CK-2) 1.20 1.10 Troponin I 0.811 1.090 NT-Pro-B Natriuret Pep Impressions: Gastric Emptying Nuclear Medicine 01/30/18 00:00 IMPRESSION: No emptying of the administered activity from the stomach over 2 hours. KUB X-Ray 02/02/18 11:00 IMPRESSION: THE TIP OF THE NASOGASTRIC TUBE IN THE STOMACH. Abdomen Ultrasound 02/03/18 00:00 IMPRESSION: Post cholecystectomy. Otherwise unremarkable study Abdomen/Pelvis CT 02/03/18 07:00 IMPRESSION: Small bowel obstruction with transition point in the midline pelvis. Head CT 02/08/18 00:00 IMPRESSION: No significant change. Chronic white matter changes. Focal encephalomalacia medial left occipital lobe EVIDENCE OF ACUTE STROKE: NO. Chest X-Ray 02/11/18 06:00 IMPRESSION: Improvement in pulmonary vascular congestion. Other findings are stable copyright 2011 [employer]- All Rights Reserved Assessment & Plan - Diagnosis (1) Acute respiratory failure with hypoxia Is this a current diagnosis for this admission?: Yes Plan: Extubated today. Please also see Dr. Estevez's note. Currently on humidified mask. BiPAP available if needed. I did add Mucomyst to help loosen secretions. Guaifenesin was also added. (2) End stage chronic kidney disease Is this a current diagnosis for this admission?: Yes Plan: Received dialysis yesterday. Was able to remove 5 L. We will monitor blood pressure. (3) Abnormal liver function tests Is this a current diagnosis for this admission?: Yes Plan: We will recheck tomorrow to see if increased continues or if she plateaus and begins to decrease. 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 (5) Diabetic gastroparesis Is this a current diagnosis for this admission?: Yes Plan: Resume Reglan 10 mg through the NG tube every 8 hours (6) Hypotension Is this a current diagnosis for this admission?: Yes Plan: Currently off of pressors. Blood pressure is holding. (7) Intra-abdominal adhesions Is this a current diagnosis for this admission?: Yes Plan: The patient underwent surgery. Her incarcerated small bowel hernia was repaired in addition to lysis of adhesions. - Time Time Spent with patient: 25-34 minutes Medications reviewed and adjusted accordingly: Yes Anticipated discharge: [facility]
[2018-02-12] MEDS: CEFEPIME 2 GM/D5W RTU 2 GM/50 ML RTUPB IV SCH (13:23)
[2018-02-12 13:55] LABS: ALANINE AMINOTRANSFERASE 88 U/L (9-52); ASPARTATE AMINO TRANSFERASE 174 U/L (14-36)
--- NOTE | 2018-02-12 15:35 | PDOC PROGRESS REPORT ---
Subjective Progress Note for:: 02/12/18 Subjective:: [facility] Patient is not quite alert and responsive which may be due to meds when intubated. She is a dialysis pt and meds may take some time to metabolize. At any rate, appears to tolerate small amounts of tube feedings. Reason For Visit: PERSISTENT VOMITING ? DIABETES Physical Exam Vital Signs: Temp Pulse Resp BP Pulse Ox 97.7 F 75 24 H 75/51 L 100 02/12/18 13:30 02/12/18 10:00 02/12/18 15:17 02/12/18 11:04 02/12/18 15:17 Intake & Output 02/11/18 02/12/18 02/13/18 06:59 06:59 06:59 Intake Total 610 330 516 Output Total 5300 0 0 Balance -4690 330 516 Weight 107.6 kg 107.9 kg Exam: Incision looks clean and dry. No tenderness. Results Laboratory Results: 02/11/18 06:01 02/12/18 05:20 02/12/18 02/12/18 02/12/18 05:20 05:20 09:15 Carbonic Acid 1.32 HCO3/H2CO3 Ratio 21:1 ABG pH 7.42 ABG pCO2 43.9 ABG pO2 75.2 L ABG HCO3 27.8 H ABG O2 Saturation 95.3 ABG Base Excess 2.9 FiO2 30% Sodium 135.1 L Potassium 5.9 H D Chloride 94 L Carbon Dioxide 26 Anion Gap 15 BUN 45 H Creatinine 6.16 H Est GFR ( Amer) 8 L Est GFR (Non-Af Amer) 7 L Glucose 204 H Calcium 9.4 AST 174 H ALT 88 H 01/30/18 01/30/18 01/30/18 22:08 22:08 22:08 Creatine Kinase 48 CK-MB (CK-2) 0.76 Troponin I 0.054 NT-Pro-B Natriuret Pep 88756 H 01/31/18 01/31/18 01/31/18 04:27 04:27 13:17 Creatine Kinase 47 72 CK-MB (CK-2) 0.96 Troponin I 0.068 NT-Pro-B Natriuret Pep 01/31/18 01/31/18 01/31/18 13:17 18:20 18:20 Creatine Kinase 58 CK-MB (CK-2) 1.53 1.59 Troponin I 0.079 0.081 NT-Pro-B Natriuret Pep 02/07/18 02/07/18 02/08/18 19:00 19:00 04:20 Creatine Kinase 376 H 348 H CK-MB (CK-2) 1.20 Troponin I 0.110 NT-Pro-B Natriuret Pep 02/08/18 02/08/18 02/08/18 04:20 08:47 11:45 Creatine Kinase 296 H CK-MB (CK-2) 1.20 1.10 Troponin I 0.811 1.090 NT-Pro-B Natriuret Pep Impressions: Gastric Emptying Nuclear Medicine 01/30/18 00:00 IMPRESSION: No emptying of the administered activity from the stomach over 2 hours. KUB X-Ray 02/02/18 11:00 IMPRESSION: THE TIP OF THE NASOGASTRIC TUBE IN THE STOMACH. Abdomen Ultrasound 02/03/18 00:00 IMPRESSION: Post cholecystectomy. Otherwise unremarkable study Abdomen/Pelvis CT 02/03/18 07:00 IMPRESSION: Small bowel obstruction with transition point in the midline pelvis. Head CT 02/08/18 00:00 IMPRESSION: No significant change. Chronic white matter changes. Focal encephalomalacia medial left occipital lobe EVIDENCE OF ACUTE STROKE: NO. Chest X-Ray 02/11/18 06:00 IMPRESSION: Improvement in pulmonary vascular congestion. Other findings are stable copyright 2011 [employer]- All Rights Reserved Assessment & Plan - Time Time Spent with patient: 15-24 minutes - Inpatient Certification Medical Necessity: Need Close Monitoring Due to Risk of Patient Decompensation, Need For IV Fluids, Risk of Complication if Not Cared For in Hospital - Plan Summary Plan Summary: Slight bump in LFT's which may be just due to medications and hemodynamic imbalance when intubated. OK to repeat in am before working up. At present ,her abdomen is soft and nontender. Doubt GB problems. Continue NGT feedings [facility].
[2018-02-12] MEDS: IPRATROPIUM/ALBUTEROL 0.5-2.5 MG/3 ML AMPUL NEB PRN (21:31)
[2018-02-13] MEDS: METOCLOPRAMIDE HCL INJ/PF 10 MG/2 ML SDV IV SCH ×4 (00:10→21:16)
[2018-02-13] MEDS: METOPROLOL TARTRATE 25 MG TABLET NG SCH ×5 (00:11→23:46)
[2018-02-13] MEDS: HEPARIN SOD (PORCINE) 5,000 UNIT/ML 1 ML SYRINGE SUBCUT SCH ×3 (05:38→21:15)
[2018-02-13 06:17] LABS: ABSOLUTE BASOPHILS # (AUTO) 0.2 10^3/uL (0.0-0.2); ABSOLUTE EOSINOPHILS # (AUTO) 0.7 10^3/uL (0.0-0.6); ABSOLUTE LYMPHOCYTES (AUTO) 2.6 10^3/uL (0.5-4.7); ABSOLUTE NEUT (AUTO) 11.7 10^3/uL (1.7-8.2); BASOPHILS % (AUTO) 1.3 % (0-2); EOSINOPHILS % (AUTO) 4.2 % (0-6); HEMATOCRIT 29.6 % (36.0-47.0); HEMOGLOBIN 9.5 g/dL (12.0-15.5); LYMPHOCYTES % (AUTO) 14.9 % (13-45); MEAN CORPUSCULAR HEMOGLOBIN 26.5 pg (27.0-33.4); MEAN CORPUSCULAR HGB CONC 32.2 g/dL (32.0-36.0); MEAN CORPUSCULAR VOLUME 82 fl (80-97); MONOCYTES % (AUTO) 11.7 % (3-13); RED CELL DISTRIBUTION WIDTH 18.2 % (11.5-14.0); SEGMENTED NEUTROPHILS % (AUTO) 67.9 % (42-78); TOTAL CELLS COUNTED % (AUTO) 100 %; WHITE BLOOD COUNT 17.2 10^3/uL (4.0-10.5)
[2018-02-13 06:35] LABS: ALANINE AMINOTRANSFERASE 50 U/L (9-52); ALBUMIN 2.9 g/dL (3.5-5.0); ALKALINE PHOSPHATASE 338 U/L (38-126); ANION GAP 14 (5-19); ASPARTATE AMINO TRANSFERASE 62 U/L (14-36); BILIRUBIN,DIRECT 1.4 mg/dL (0.0-0.4); BILIRUBIN,TOTAL 1.5 mg/dL (0.2-1.3); BLOOD UREA NITROGEN 56 mg/dL (7-20); CALCIUM 9.4 mg/dL (8.4-10.2); CARBON DIOXIDE 26 mmol/L (22-30); CHLORIDE 95 mmol/L (98-107); GLUCOSE 199 mg/dL (75-110); LIPASE 169.5 U/L (23-300); POTASSIUM 5.9 mmol/L (3.6-5.0); SODIUM 135.4 mmol/L (137-145)
[2018-02-13 06:39] LABS: VANCOMYCIN,TROUGH 20.4 ug/mL (5.0-20.0)
[2018-02-13 06:41] LABS: PLATELET COUNT 238 10^3/uL (150-450)
[2018-02-13 06:45] LABS: ARTERIAL BLOOD BASE EXCESS 1.5 mmol/L; ARTERIAL BLOOD H2CO3 1.45 mmol/L (1.05-1.35); ARTERIAL BLOOD HCO3 27.2 mmol/L (20-24); ARTERIAL BLOOD O2 SATURATION 95.2 % (94-98); ARTERIAL BLOOD PCO2 48.2 mmHg (35-45); ARTERIAL BLOOD PH 7.37 (7.35-7.45); ARTERIAL BLOOD PO2 78.8 mmHg (80-100); ARTERIAL BLOOD TOTAL CO2 28.7 mmol/L (21-25)
[2018-02-13 06:47] LABS: ARTERIAL BLOOD FIO2 30%
[2018-02-13] MEDS: IPRATROPIUM/ALBUTEROL 0.5-2.5 MG/3 ML AMPUL NEB PRN ×2 (08:18→20:40)
[2018-02-13] MEDS: ACETYLCYSTEINE 20% SOLN 800 MG/4 ML VIAL.NEB NEB SCH ×2 (08:18→20:40)
[2018-02-13] MEDS ORDERED: EPOETIN ALFA INJ 20000 UNIT/1 ML VIAL (RENAL) IV ONE (09:05)
--- NOTE | 2018-02-13 09:23 | PDOC PROGRESS REPORT ---
Subjective Progress Note for:: 02/13/18 Subjective:: Patient still sounds very congested. She does open her eyes to verbal stimulus. She does have a barely perceptible head not to answer yes and no questions. On BiPAP with some tachypnea. Currently preparing for hemodialysis. Reason For Visit: PERSISTENT VOMITING ? DIABETES Physical Exam Vital Signs: Temp Pulse Resp BP Pulse Ox 97.7 F 89 20 115/57 L 96 02/13/18 07:59 02/13/18 08:19 02/13/18 08:19 02/13/18 07:59 02/13/18 08:19 Intake & Output 02/12/18 02/13/18 02/14/18 06:59 06:59 06:59 Intake Total 330 752 Output Total 0 100 Balance 330 652 Weight 107.9 kg 108.9 kg General appearance: PRESENT: morbidly obese - BMI 41, well-developed, other - Minimally interactive Head exam: PRESENT: normocephalic Eye exam: PRESENT: scleral icterus Ear exam: PRESENT: normal external ear exam Throat exam: PRESENT: other - Nasogastric tube in place Neck exam: PRESENT: other - Large neck.. ABSENT: carotid bruit Respiratory exam: PRESENT: rhonchi - Coarse rhonchorous breath sounds bilaterally.. ABSENT: stridor, wheezes Cardiovascular exam: PRESENT: RRR, +S1, +S2, other - Difficult to auscultate any murmur due to breath sounds GI/Abdominal exam: PRESENT: hypoactive bowel sounds, soft, other - Dressing over midline abdominal incision Gentrourinary exam: PRESENT: indwelling catheter Extremities exam: PRESENT: pedal edema Neurological exam: PRESENT: awake, other - Limited interaction as noted above. ABSENT: alert Psychiatric exam: PRESENT: flat affect. ABSENT: agitated Focused psych exam: ABSENT: restlessness Skin exam: PRESENT: other - Triple-lumen catheter right groin Results Laboratory Results: 02/13/18 05:48 02/13/18 05:48 02/12/18 02/12/18 02/13/18 05:20 09:15 05:48 WBC 17.2 H RBC 3.60 L Hgb 9.5 L Hct 29.6 L MCV 82 MCH 26.5 L MCHC 32.2 RDW 18.2 H Plt Count 238 Seg Neutrophils % 67.9 Lymphocytes % 14.9 Monocytes % 11.7 Eosinophils % 4.2 Basophils % 1.3 Absolute Neutrophils 11.7 H Absolute Lymphocytes 2.6 Absolute Monocytes 2.0 H Absolute Eosinophils 0.7 H Absolute Basophils 0.2 Carbonic Acid 1.32 HCO3/H2CO3 Ratio 21:1 ABG pH 7.42 ABG pCO2 43.9 ABG pO2 75.2 L ABG HCO3 27.8 H ABG O2 Saturation 95.3 ABG Base Excess 2.9 FiO2 30% Sodium Potassium Chloride Carbon Dioxide Anion Gap BUN Creatinine Est GFR ( Amer) Est GFR (Non-Af Amer) Glucose Calcium Magnesium Total Bilirubin AST 174 H ALT 88 H Alkaline Phosphatase Total Protein Albumin Lipase 02/13/18 02/13/18 05:48 06:37 WBC RBC Hgb Hct MCV MCH MCHC RDW Plt Count Seg Neutrophils % Lymphocytes % Monocytes % Eosinophils % Basophils % Absolute Neutrophils Absolute Lymphocytes Absolute Monocytes Absolute Eosinophils Absolute Basophils Carbonic Acid 1.45 H HCO3/H2CO3 Ratio 18:1 ABG pH 7.37 ABG pCO2 48.2 H ABG pO2 78.8 L ABG HCO3 27.2 H ABG O2 Saturation 95.2 ABG Base Excess 1.5 FiO2 30% Sodium 135.4 L Potassium 5.9 H Chloride 95 L Carbon Dioxide 26 Anion Gap 14 BUN 56 H Creatinine 7.43 H Est GFR ( Amer) 7 L Est GFR (Non-Af Amer) 6 L Glucose 199 H Calcium 9.4 Magnesium 2.1 Total Bilirubin 1.5 H AST 62 H ALT 50 Alkaline Phosphatase 338 H Total Protein 6.0 L Albumin 2.9 L Lipase 169.5 02/07/18 19:39 Blood Blood Culture - Final NO GROWTH IN 5 DAYS 02/07/18 19:50 Blood Blood Culture - Final NO GROWTH IN 5 DAYS 01/30/18 01/30/18 01/30/18 22:08 22:08 22:08 Creatine Kinase 48 CK-MB (CK-2) 0.76 Troponin I 0.054 NT-Pro-B Natriuret Pep [id number] H 01/31/18 01/31/18 01/31/18 04:27 04:27 13:17 Creatine Kinase 47 72 CK-MB (CK-2) 0.96 Troponin I 0.068 NT-Pro-B Natriuret Pep 12/18/18 12/18/18 12/18/18 13:17 18:20 18:20 Creatine Kinase 58 CK-MB (CK-2) 1.53 1.59 Troponin I 0.079 0.081 NT-Pro-B Natriuret Pep 02/07/18 02/07/18 02/08/18 19:00 19:00 04:20 Creatine Kinase 376 H 348 H CK-MB (CK-2) 1.20 Troponin I 0.110 NT-Pro-B Natriuret Pep 02/08/18 02/08/18 02/08/18 04:20 08:47 11:45 Creatine Kinase 296 H CK-MB (CK-2) 1.20 1.10 Troponin I 0.811 1.090 NT-Pro-B Natriuret Pep Impressions: Gastric Emptying Nuclear Medicine 01/30/18 00:00 IMPRESSION: No emptying of the administered activity from the stomach over 2 hours. KUB X-Ray 02/02/18 11:00 IMPRESSION: THE TIP OF THE NASOGASTRIC TUBE IN THE STOMACH. Abdomen Ultrasound 02/03/18 00:00 IMPRESSION: Post cholecystectomy. Otherwise unremarkable study Abdomen/Pelvis CT 02/03/18 07:00 IMPRESSION: Small bowel obstruction with transition point in the midline pelvis. Head CT 02/08/18 00:00 IMPRESSION: No significant change. Chronic white matter changes. Focal encephalomalacia medial left occipital lobe EVIDENCE OF ACUTE STROKE: NO. Chest X-Ray 02/11/18 06:00 IMPRESSION: Improvement in pulmonary vascular congestion. Other findings are stable copyright 2011 [employer]- All Rights Reserved Assessment & Plan - Diagnosis (1) Acute respiratory failure with hypoxia Is this a current diagnosis for this admission?: Yes Plan: The patient has been extubated for 2 days now. She still has very congested breath sounds. She is on BiPAP but breathing above the set rate. Respiratory rate was 26 this morning. Blood gas was 7.37 with a PCO2 of 48 and a PO2 of 79. Bicarb was 27 on BiPAP with an FiO2 of 30%. (2) End stage chronic kidney disease Is this a current diagnosis for this admission?: Yes Plan: Currently preparing for hemodialysis. They were able to remove almost 5 L of fluid on Tuesday. If her blood pressure tolerates they will shoot for 4-5 L again today. Her central venous pressure is up but she has not had excessive liquid intake/IV plus nasogastric tube) Adjusting medications as clinically indicated. (3) Abnormal liver function tests Is this a current diagnosis for this admission?: Yes Plan: She had a bump in her transaminases yesterday but they are improved today. Total bilirubin is 1.5 down from 1.9 yesterday. Direct bili is 1.4. AST is 62 with an ALT of 50. Alkaline phosphatase is 338. Those are all improved from yesterday. 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 Our titration of her Nepro tube feeds has been slow due to gastroparesis. She is getting below the desired goal. If her rate can be increased we may need to adjust the sliding scale. (5) Diabetic gastroparesis Is this a current diagnosis for this admission?: Yes Plan: The patient has severe gastroparesis. She did have a bowel movement earlier this morning. I have adjusted her metoclopramide appropriate to her renal function. We will continue to try me. Tube feed goals if possible. (6) Hypotension Is this a current diagnosis for this admission?: Yes Plan: She was transiently on Levophed yesterday. Her CVP is up today. I expect it to come down with hemodialysis. Need to balance any fluid boluses with her blood pressure and renal failure. (7) Intra-abdominal adhesions Is this a current diagnosis for this admission?: Yes Plan: Patient had an incarcerated small bowel hernia that was reduced. Adhesions were lysed during that surgery as well. Please also see the surgery's note. (8) Morbid obesity with BMI of 40.0-44.9, adult Is this a current diagnosis for this admission?: Yes Plan: No specific intervention at this time due to her acute illness. (9) Leukocytosis Qualifiers: Leukocytosis type: unspecified Qualified Code(s): D72.829 - Elevated white blood cell count, unspecified Is this a current diagnosis for this admission?: Yes Plan: Patient's white blood cell count has been 17,000 since February 09. She is now on triple antibiotic therapy postop. She is on vancomycin, cefepime and aztreonam. This should provide coverage for any intra-abdominal infection as well as any ventilator associated pneumonia. Chest x-ray suggests pulmonary vascular congestion without discrete infiltrate. Sputum culture revealed a Proteus mirabilis that was quite sensitive as well as a small amount of Mary albicans. Consider stopping antibiotic therapy if no new focus of infection is identified. - Time Time Spent with patient: 35 or more minutes Medications reviewed and adjusted accordingly: Yes [facility] Plan Summary Plan Summary: We are still waiting for a bed at [facility]. The patient is still somewhat lethargic. Blood pressures have stabilized. Transaminases are improving. Elevated white count without a known etiology for infection. She did have abdominal surgery but per the surgical report there was no resection of bowel just reduction of an incarcerated hernia. Family is eagerly anticipating transfer.
--- NOTE | 2018-02-13 09:28 | PDOC PROGRESS REPORT ---
Subjective Progress Note for:: 02/13/18 Subjective:: Patient postoperative day 10 exploratory laparotomy, lysis of adhesions. She is tolerating tube feeds at 20 cc an hour. She is extubated but not following any commands. Reason For Visit: PERSISTENT VOMITING ? DIABETES Physical Exam Vital Signs: Temp Pulse Resp BP Pulse Ox 97.7 F 89 20 115/57 L 96 02/13/18 07:59 02/13/18 08:19 02/13/18 08:19 02/13/18 07:59 02/13/18 08:19 Intake & Output 02/12/18 02/13/18 02/14/18 06:59 06:59 06:59 Intake Total 330 752 Output Total 0 100 Balance 330 652 Weight 107.9 kg 108.9 kg General appearance: PRESENT: no acute distress GI/Abdominal exam: PRESENT: other - Small open area the umbilicus, loose staple removed; remainder of sumeet in place. Abdomen soft no peritoneal signs no rigidity no distention. Open area cleaned out with peroxide Results Laboratory Results: 02/13/18 05:48 02/13/18 05:48 02/12/18 02/12/18 02/13/18 05:20 09:15 05:48 WBC 17.2 H RBC 3.60 L Hgb 9.5 L Hct 29.6 L MCV 82 MCH 26.5 L MCHC 32.2 RDW 18.2 H Plt Count 238 Seg Neutrophils % 67.9 Lymphocytes % 14.9 Monocytes % 11.7 Eosinophils % 4.2 Basophils % 1.3 Absolute Neutrophils 11.7 H Absolute Lymphocytes 2.6 Absolute Monocytes 2.0 H Absolute Eosinophils 0.7 H Absolute Basophils 0.2 Carbonic Acid 1.32 HCO3/H2CO3 Ratio 21:1 ABG pH 7.42 ABG pCO2 43.9 ABG pO2 75.2 L ABG HCO3 27.8 H ABG O2 Saturation 95.3 ABG Base Excess 2.9 FiO2 30% Sodium Potassium Chloride Carbon Dioxide Anion Gap BUN Creatinine Est GFR ( Amer) Est GFR (Non-Af Amer) Glucose Calcium Magnesium Total Bilirubin AST 174 H ALT 88 H Alkaline Phosphatase Total Protein Albumin Lipase 02/13/18 02/13/18 05:48 06:37 WBC RBC Hgb Hct MCV MCH MCHC RDW Plt Count Seg Neutrophils % Lymphocytes % Monocytes % Eosinophils % Basophils % Absolute Neutrophils Absolute Lymphocytes Absolute Monocytes Absolute Eosinophils Absolute Basophils Carbonic Acid 1.45 H HCO3/H2CO3 Ratio 18:1 ABG pH 7.37 ABG pCO2 48.2 H ABG pO2 78.8 L ABG HCO3 27.2 H ABG O2 Saturation 95.2 ABG Base Excess 1.5 FiO2 30% Sodium 135.4 L Potassium 5.9 H Chloride 95 L Carbon Dioxide 26 Anion Gap 14 BUN 56 H Creatinine 7.43 H Est GFR ( Amer) 7 L Est GFR (Non-Af Amer) 6 L Glucose 199 H Calcium 9.4 Magnesium 2.1 Total Bilirubin 1.5 H AST 62 H ALT 50 Alkaline Phosphatase 338 H Total Protein 6.0 L Albumin 2.9 L Lipase 169.5 02/07/18 19:39 Blood Blood Culture - Final NO GROWTH IN 5 DAYS 02/07/18 19:50 Blood Blood Culture - Final NO GROWTH IN 5 DAYS 01/30/18 01/30/18 01/30/18 22:08 22:08 22:08 Creatine Kinase 48 CK-MB (CK-2) 0.76 Troponin I 0.054 NT-Pro-B Natriuret Pep [id number] H 01/31/18 01/31/18 01/31/18 04:27 04:27 13:17 Creatine Kinase 47 72 CK-MB (CK-2) 0.96 Troponin I 0.068 NT-Pro-B Natriuret Pep 01/31/18 01/31/18 01/31/18 13:17 18:20 18:20 Creatine Kinase 58 CK-MB (CK-2) 1.53 1.59 Troponin I 0.079 0.081 NT-Pro-B Natriuret Pep 02/07/18 02/07/18 02/08/18 19:00 19:00 04:20 Creatine Kinase 376 H 348 H CK-MB (CK-2) 1.20 Troponin I 0.110 NT-Pro-B Natriuret Pep 02/08/18 02/08/18 02/08/18 04:20 08:47 11:45 Creatine Kinase 296 H CK-MB (CK-2) 1.20 1.10 Troponin I 0.811 1.090 NT-Pro-B Natriuret Pep Impressions: Gastric Emptying Nuclear Medicine 01/30/18 00:00 IMPRESSION: No emptying of the administered activity from the stomach over 2 hours. KUB X-Ray 02/02/18 11:00 IMPRESSION: THE TIP OF THE NASOGASTRIC TUBE IN THE STOMACH. Abdomen Ultrasound 02/03/18 00:00 IMPRESSION: Post cholecystectomy. Otherwise unremarkable study Abdomen/Pelvis CT 02/03/18 07:00 IMPRESSION: Small bowel obstruction with transition point in the midline pelvis. Head CT 02/08/18 00:00 IMPRESSION: No significant change. Chronic white matter changes. Focal encep halomalacia medial left occipital lobe EVIDENCE OF ACUTE STROKE: NO. Chest X-Ray 02/11/18 06:00 IMPRESSION: Improvement in pulmonary vascular congestion. Other findings are stable copyright 2011 [employer]- All Rights Reserved Assessment & Plan - Diagnosis (1) Small bowel obstruction Is this a current diagnosis for this admission?: Yes Plan: Impression: Patient now 10 days status post exploratory laparotomy, lysis of adhesions, reduction of internal hernia for incarcerated small bowel, doing well from a gastrointestinal standpoint; impaired neurologic status slowing overall postoperative recovery. Patient had a CT scan of the brain showing no evidence of acute neurologic event Recommendations: 1. We will start patient on gentle dressing changes to the umbilical area 2. May advance tube feeds as tolerated. 3. We will sign off for now; reconsult surgery if indicated. She can follow-up with [facility] in 1-2 weeks for complete staple removal (2) Diabetic gastroparesis Is this a current diagnosis for this admission?: Yes
--- NOTE | 2018-02-13 09:50 | PDOC PROGRESS REPORT ---
Subjective Progress Note for:: 02/13/18 Subjective:: I am seeing the patient during initiation of hemodialysis this morning. She has been extubated and awake with very minimal response including eye opening and minimal hand smt technician but no verbal response. She is still on BiPAP. Her blood pressure seems to be acceptable this morning. She is still awaiting for bed at [facility] for transfer. Reason For Visit: PERSISTENT VOMITING ? DIABETES Physical Exam Vital Signs: Temp Pulse Resp BP Pulse Ox 97.7 F 89 20 115/57 L 96 02/13/18 07:59 02/13/18 08:19 02/13/18 08:19 02/13/18 07:59 02/13/18 08:19 Intake & Output 02/12/18 02/13/18 02/14/18 06:59 06:59 06:59 Intake Total 330 752 Output Total 0 100 Balance 330 652 Weight 107.9 kg 108.9 kg Current vitals: Blood pressure 140/73, heart rate of 85, respiratory rate of 21, oxygen saturation 96% on BiPAP. Exam: General appearance: PRESENT: Patient is on BiPAP, awake but not much verbal response Head exam: PRESENT: atraumatic, normocephalic Eye exam: PRESENT: conjunctiva slightly pale, PERRLA. ABSENT: scleral icterus Neck exam: ABSENT: JVD Respiratory exam: PRESENT: Coarse breath sounds breath sounds. Positive crackles ABSENT: Rhonchi, unlabored, wheezes Cardiovascular exam: PRESENT: Regular rate rhythm -+S1, +S2. ABSENT: diastolic murmur, systolic murmur GI/Abdominal exam: PRESENT: Diminished bowel sounds, soft. ABSENT: guarding, mass, tenderness Extremities exam: ABSENT: No edema; positive edema in upper extremities Neurological exam: PRESENT: alert, awake, Skin exam: PRESENT: dry, warm, Cardiovascular exam: PRESENT: +S1, +S2, systolic murmur GI/Abdominal exam: PRESENT: rigid, tenderness Results Laboratory Results: 02/13/18 05:48 02/13/18 05:48 02/12/18 02/12/18 02/13/18 05:20 09:15 05:48 WBC 17.2 H RBC 3.60 L Hgb 9.5 L Hct 29.6 L MCV 82 MCH 26.5 L MCHC 32.2 RDW 18.2 H Plt Count 238 Seg Neutrophils % 67.9 Lymphocytes % 14.9 Monocytes % 11.7 Eosinophils % 4.2 Basophils % 1.3 Absolute Neutrophils 11.7 H Absolute Lymphocytes 2.6 Absolute Monocytes 2.0 H Absolute Eosinophils 0.7 H Absolute Basophils 0.2 Carbonic Acid 1.32 HCO3/H2CO3 Ratio 21:1 ABG pH 7.42 ABG pCO2 43.9 ABG pO2 75.2 L ABG HCO3 27.8 H ABG O2 Saturation 95.3 ABG Base Excess 2.9 FiO2 30% Sodium Potassium Chloride Carbon Dioxide Anion Gap BUN Creatinine Est GFR ( Amer) Est GFR (Non-Af Amer) Glucose Calcium Magnesium Total Bilirubin AST 174 H ALT 88 H Alkaline Phosphatase Total Protein Albumin Lipase 02/13/18 02/13/18 05:48 06:37 WBC RBC Hgb Hct MCV MCH MCHC RDW Plt Count Seg Neutrophils % Lymphocytes % Monocytes % Eosinophils % Basophils % Absolute Neutrophils Absolute Lymphocytes Absolute Monocytes Absolute Eosinophils Absolute Basophils Carbonic Acid 1.45 H HCO3/H2CO3 Ratio 18:1 ABG pH 7.37 ABG pCO2 48.2 H ABG pO2 78.8 L ABG HCO3 27.2 H ABG O2 Saturation 95.2 ABG Base Excess 1.5 FiO2 30% Sodium 135.4 L Potassium 5.9 H Chloride 95 L Carbon Dioxide 26 Anion Gap 14 BUN 56 H Creatinine 7.43 H Est GFR ( Amer) 7 L Est GFR (Non-Af Amer) 6 L Glucose 199 H Calcium 9.4 Magnesium 2.1 Total Bilirubin 1.5 H AST 62 H ALT 50 Alkaline Phosphatase 338 H Total Protein 6.0 L Albumin 2.9 L Lipase 169.5 02/07/18 19:39 Blood Blood Culture - Final NO GROWTH IN 5 DAYS 02/07/18 19:50 Blood Blood Culture - Final NO GROWTH IN 5 DAYS 01/30/18 01/30/18 01/30/18 22:08 22:08 22:08 Creatine Kinase 48 CK-MB (CK-2) 0.76 Troponin I 0.054 NT-Pro-B Natriuret Pep [id number] H 01/31/18 01/31/18 01/31/18 04:27 04:27 13:17 Creatine Kinase 47 72 CK-MB (CK-2) 0.96 Troponin I 0.068 NT-Pro-B Natriuret Pep 12/01/31/18 01/31/18 13:17 18:20 18:20 Creatine Kinase 58 CK-MB (CK-2) 1.53 1.59 Troponin I 0.079 0.081 NT-Pro-B Natriuret Pep 02/07/18 02/07/18 02/08/18 19:00 19:00 04:20 Creatine Kinase 376 H 348 H CK-MB (CK-2) 1.20 Troponin I 0.110 NT-Pro-B Natriuret Pep 02/08/18 02/08/18 02/08/18 04:20 08:47 11:45 Creatine Kinase 296 H CK-MB (CK-2) 1.20 1.10 Troponin I 0.811 1.090 NT-Pro-B Natriuret Pep Impressions: Gastric Emptying Nuclear Medicine 01/30/18 00:00 IMPRESSION: No emptying of the administered activity from the stomach over 2 hours. KUB X-Ray 02/02/18 11:00 IMPRESSION: THE TIP OF THE NASOGASTRIC TUBE IN THE STOMACH. Abdomen Ultrasound 02/03/18 00:00 IMPRESSION: Post cholecystectomy. Otherwise unremarkable study Abdomen/Pelvis CT 02/03/18 07:00 IMPRESSION: Small bowel obstruction with transition point in the midline pelvis. Head CT 02/08/18 00:00 IMPRESSION: No significant change. Chronic white matter changes. Focal encephalomalacia medial left occipital lobe EVIDENCE OF ACUTE STROKE: NO. Chest X-Ray 02/11/18 06:00 IMPRESSION: Improvement in pulmonary vascular congestion. Other findings are stable copyright 2011 [employer]- All Rights Reserved Assessment & Plan - Diagnosis (1) End stage chronic kidney disease Is this a current diagnosis for this admission?: Yes Plan: We will do dialysis today for 3.5 hours, using the patient's left AV fistula, with 2 potassium bath, blood flow rate of 450 mL per minute, dialysate flow rate of 800 mL per minute, ultrafiltration 4-5 L as tolerated, no heparin and Procrit with 10,000 units during dialysis intravenously. Patient will be monitored carefully. We will adjust ultrafiltration depending on the patient's blood pressure. Dialysis nurse aware of the plan. (2) Anemia in chronic kidney disease Qualifiers: Chronic kidney disease stage: stage 3 (moderate) Qualified Code(s): N18.3 - Chronic kidney disease, stage 3 (moderate); D63.1 - Anemia in chronic kidney disease; D63.1 - Anemia in chronic kidney disease Is this a current diagnosis for this admission?: Yes Plan: We will give Procrit 10,000 units during dialysis IV. (3) Hypotension Is this a current diagnosis for this admission?: Yes Plan: Improved today without any pressors. (4) Acute respiratory failure with hypoxia Is this a current diagnosis for this admission?: Yes Plan: Currently on BiPAP. (5) Diabetic gastroparesis Is this a current diagnosis for this admission?: Yes Plan: Recommend to decrease Reglan to 5 mg IV every 8 hours in view of ESRD. (6) Abnormal liver function tests Is this a current diagnosis for this admission?: Yes (7) Small bowel obstruction Is this a current diagnosis for this admission?: Yes Plan: Status post exploratory laparotomy, lysis of adhesions, and reduction of incarcerated hernia. Surgery following. (8) Type 2 diabetes mellitus Qualifiers: Diabetes mellitus penitentiary insulin use: with computer terminal operator use Diabetes mellitus complication status: with kidney complications Diabetes mellitus complication detail: with chronic kidney disease Chronic kidney disease stage: on chronic dialysis Qualified Code(s): E11.22 - Type 2 diabetes mellitus with diabetic chronic kidney disease; N18.6 - End stage renal disease; Z79.4 - FPC (current) use of insulin; Z99.2 - Dependence on renal dialysis Is this a current diagnosis for this admission?: Yes - Time Time with patient: 15-25 minutes
[2018-02-13] MEDS ORDERED: EPOETIN ALFA 10,000 UNIT in SYRINGE, DISPOSABLE, 1 EACH SUBCUT ONE (10:30)
[2018-02-13] MEDS: AZTREONAM 0.5 GM in DEXTROSE 5%-WATER 50 ML IV SCH ×2 (13:49→21:14)
[2018-02-13] MEDS: CEFEPIME 2 GM/D5W RTU 2 GM/50 ML RTUPB IV SCH (13:49)
[2018-02-13] MEDS: GUAIFENESIN SYRP 200 MG/10 ML UDC PO SCH ×4 (13:49→21:15)
--- NOTE | 2018-02-13 15:18 | PDOC PROGRESS REPORT ---
Subjective Progress Note for:: 02/06/18 Subjective:: Status post surgery getting dialysis on a daily basis Reason For Visit: PERSISTENT VOMITING ? DIABETES Physical Exam Vital Signs: Temp Pulse Resp BP Pulse Ox 97.6 F 81 16 91/49 L 98 02/05/18 20:00 02/06/18 05:45 02/06/18 05:45 02/06/18 05:37 02/06/18 08:20 Intake & Output 02/05/18 02/06/18 02/07/18 06:59 06:59 06:59 Intake Total 1490 1560 68 Output Total 0 670 Balance 1490 890 68 Weight 103.2 kg 102.4 kg General appearance: PRESENT: no acute distress, disheveled, morbidly obese Head exam: PRESENT: atraumatic, normocephalic Eye exam: PRESENT: conjunctiva pale. ABSENT: EOMI, nystagmus, scleral icterus Mouth exam: PRESENT: dry mucosa, neck supple, tongue midline, other - ET tube in place Neck exam: ABSENT: carotid bruit, JVD, lymphadenopathy, thyromegaly, tracheal deviation, tracheostomy Respiratory exam: PRESENT: decreased breath sounds, prolonged expiratory phas, rales, rhonchi, symmetrical, unlabored. ABSENT: retraction, tachypnea Cardiovascular exam: PRESENT: RRR, +S1, systolic murmur Pulses: PRESENT: normal radial pulses GI/Abdominal exam: PRESENT: soft, tenderness, other - Status post surgery Gentrourinary exam: PRESENT: indwelling catheter Extremities exam: PRESENT: pedal edema. ABSENT: calf tenderness, clubbing, joint swelling Musculoskeletal exam: ABSENT: deformity, dislocation Neurological exam: PRESENT: altered, awake Skin exam: PRESENT: dry, warm Results Laboratory Results: 02/06/18 04:00 02/06/18 04:00 02/05/18 02/06/18 02/06/18 17:15 00:20 04:00 WBC RBC Hgb Hct MCV MCH MCHC RDW Plt Count Seg Neutrophils % Lymphocytes % Monocytes % Eosinophils % Basophils % Absolute Neutrophils Absolute Lymphocytes Absolute Monocytes Absolute Eosinophils Absolute Basophils Carbonic Acid 1.29 HCO3/H2CO3 Ratio 20:1 ABG pH 7.42 ABG pCO2 42.9 ABG pO2 83.8 ABG HCO3 27.0 H ABG O2 Saturation 96.4 ABG Base Excess 2.1 FiO2 30% Sodium 137.5 Potassium 3.2 L 3.5 L Chloride 97 L Carbon Dioxide 24 Anion Gap 17 BUN 34 H Creatinine 8.17 H Est GFR ( Amer) 6 L Est GFR (Non-Af Amer) 5 L Glucose 142 H Calcium 7.5 L Phosphorus Magnesium Total Bilirubin 1.3 AST 25 ALT 28 Alkaline Phosphatase 188 H Total Protein 5.4 L Albumin 2.6 L 02/06/18 02/06/18 04:00 04:00 WBC 11.1 H RBC 4.71 Hgb 12.3 Hct 38.1 MCV 81 MCH 26.0 L MCHC 32.2 RDW 18.1 H Plt Count 146 L Seg Neutrophils % 66.1 Lymphocytes % 10.6 L Monocytes % 11.9 Eosinophils % 10.6 H Basophils % 0.8 Absolute Neutrophils 7.3 Absolute Lymphocytes 1.2 Absolute Monocytes 1.3 Absolute Eosinophils 1.2 H Absolute Basophils 0.1 Carbonic Acid HCO3/H2CO3 Ratio ABG pH ABG pCO2 ABG pO2 ABG HCO3 ABG O2 Saturation ABG Base Excess FiO2 Sodium 139.6 Potassium 3.6 Chloride 97 L Carbon Dioxide 26 Anion Gap 17 BUN 40 H Creatinine 8.80 H Est GFR ( Amer) 6 L Est GFR (Non-Af Amer) 5 L Glucose 149 H Calcium 7.6 L Phosphorus 6.3 H Magnesium 1.9 Total Bilirubin AST ALT Alkaline Phosphatase Total Protein Albumin 01/30/18 01/30/18 01/30/18 22:08 22:08 22:08 Creatine Kinase 48 CK-MB (CK-2) 0.76 Troponin I 0.054 NT-Pro-B Natriuret Pep [id number] H 01/31/18 01/31/18 01/31/18 04:27 04:27 13:17 Creatine Kinase 47 72 CK-MB (CK-2) 0.96 Troponin I 0.068 NT-Pro-B Natriuret Pep 01/31/18 01/31/18 01/31/18 13:17 18:20 18:20 Creatine Kinase 58 CK-MB (CK-2) 1.53 1.59 Troponin I 0.079 0.081 NT-Pro-B Natriuret Pep Impressions: Gastric Emptying Nuclear Medicine 01/30/18 00:00 IMPRESSION: No emptying of the administered activity from the stomach over 2 hours. KUB X-Ray 02/02/18 11:00 IMPRESSION: THE TIP OF THE NASOGASTRIC TUBE IN THE STOMACH. Abdomen Ultrasound 02/03/18 00:00 IMPRESSION: Post cholecystectomy. Otherwise unremarkable study Abdomen/Pelvis CT 02/03/18 07:00 IMPRESSION: Small bowel obstruction with transition point in the midline pelvis. Chest X-Ray 02/06/18 06:00 IMPRESSION: No significant change. Assessment & Plan - Diagnosis (1) Acute respiratory failure with hypoxia Is this a current diagnosis for this admission?: Yes Plan: Subsequent oxygenation and ventilation as needed (2) End stage chronic kidney disease Is this a current diagnosis for this admission?: Yes Plan: Hemodialysis Tuesday and Tuesday (3) Intra-abdominal adhesions Is this a current diagnosis for this admission?: Yes Plan: As per surgery (4) Internal hernia Is this a current diagnosis for this admission?: Yes Plan: As per surgery (5) Morbid obesity with BMI of 40.0-44.9, adult Is this a current diagnosis for this admission?: Yes Plan: A nutritional consult (6) CHF (congestive heart failure) Qualifiers: Qualified Code(s): I50.43 - Acute on chronic combined systolic (congestive) and diastolic (congestive) heart failure Is this a current diagnosis for this admission?: Yes Plan: Hypertensive cardiomegaly renal failure (7) Sleep apnea Qualifiers: Sleep apnea type: obstructive Qualified Code(s): G47.33 - Obstructive sleep apnea (adult) (pediatric) Is this a current diagnosis for this admission?: Yes Plan: Poor compliance with noninvasive positive pressure ventilation as per family - Time Total Critical Time (Minutes): 55
--- NOTE | 2018-02-13 15:20 | PDOC PROGRESS REPORT ---
Subjective Progress Note for:: 02/04/18 Subjective:: x Reason For Visit: PERSISTENT VOMITING ? DIABETES Physical Exam Vital Signs: Temp Pulse Resp BP Pulse Ox 96.1 F L 71 29 H 106/56 L 100 02/05/18 10:00 02/05/18 10:00 02/05/18 10:00 02/05/18 10:00 02/05/18 11:47 Intake & Output 02/04/18 02/05/18 02/06/18 06:59 06:59 06:59 Intake Total 635 1490 100 Output Total 1300 0 0 Balance -665 1490 100 Weight 102.6 kg 103.2 kg 103.2 kg General appearance: PRESENT: no acute distress, morbidly obese. ABSENT: cooperative, disheveled Head exam: PRESENT: atraumatic, normocephalic Eye exam: PRESENT: conjunctiva pale. ABSENT: nystagmus, scleral icterus Mouth exam: PRESENT: dry mucosa, neck supple, tongue midline, other - ET tube in place Neck exam: ABSENT: carotid bruit, JVD, lymphadenopathy, thyromegaly, tracheal deviation, tracheostomy Respiratory exam: PRESENT: decreased breath sounds, prolonged expiratory phas, rales, rhonchi, tachypnea, unlabored, wheezes. ABSENT: retraction, stridor Cardiovascular exam: PRESENT: tachycardia Pulses: PRESENT: normal radial pulses GI/Abdominal exam: PRESENT: soft, other - Status post surgery Gentrourinary exam: PRESENT: indwelling catheter Extremities exam: PRESENT: pedal edema. ABSENT: calf tenderness, clubbing, joint swelling Musculoskeletal exam: ABSENT: deformity, dislocation Neurological exam: ABSENT: awake Skin exam: PRESENT: dry, warm Results Laboratory Results: 02/05/18 05:05 02/05/18 05:05 02/05/18 02/05/18 02/05/18 05:05 05:05 05:05 WBC 11.7 H RBC 4.66 Hgb 12.2 Hct 38.0 MCV 81 MCH 26.3 L MCHC 32.3 RDW 18.5 H Plt Count 134 L Seg Neutrophils % 62.9 Lymphocytes % 16.3 Monocytes % 14.3 H Eosinophils % 5.7 Basophils % 0.8 Absolute Neutrophils 7.4 Absolute Lymphocytes 1.9 Absolute Monocytes 1.7 H Absolute Eosinophils 0.7 H Absolute Basophils 0.1 Carbonic Acid 0.97 L HCO3/H2CO3 Ratio 26:1 ABG pH 7.51 H ABG pCO2 32.2 L ABG pO2 81.2 ABG HCO3 25.3 H ABG O2 Saturation 97.0 ABG Base Excess 2.8 FiO2 30% Sodium 138.8 Potassium 3.0 L* Chloride 96 L Carbon Dioxide 25 Anion Gap 18 BUN 34 H Creatinine 7.39 H Est GFR ( Amer) 7 L Est GFR (Non-Af Amer) 6 L Glucose 159 H Calcium 7.5 L Phosphorus 4.9 H Magnesium 1.9 Total Bilirubin 1.2 AST 36 ALT 43 Alkaline Phosphatase 181 H Total Protein 5.5 L Albumin 2.7 L 01/30/18 01/30/18 01/30/18 22:08 22:08 22:08 Creatine Kinase 48 CK-MB (CK-2) 0.76 Troponin I 0.054 NT-Pro-B Natriuret Pep [id number] H 01/31/18 01/31/18 01/31/18 04:27 04:27 13:17 Creatine Kinase 47 72 CK-MB (CK-2) 0.96 Troponin I 0.068 NT-Pro-B Natriuret Pep 01/31/18 01/31/18 01/31/18 13:17 18:20 18:20 Creatine Kinase 58 CK-MB (CK-2) 1.53 1.59 Troponin I 0.079 0.081 NT-Pro-B Natriuret Pep Impressions: Gastric Emptying Nuclear Medicine 01/30/18 00:00 IMPRESSION: No emptying of the administered activity from the stomach over 2 hours. KUB X-Ray 02/02/18 11:00 IMPRESSION: THE TIP OF THE NASOGASTRIC TUBE IN THE STOMACH. Abdomen Ultrasound 02/03/18 00:00 IMPRESSION: Post cholecystectomy. Otherwise unremarkable study Abdomen/Pelvis CT 02/03/18 07:00 IMPRESSION: Small bowel obstruction with transition point in the midline pelvis. Chest X-Ray 02/03/18 17:23 IMPRESSION: HEART ENLARGED WITHOUT FAILURE. NO OTHER SIGNIFICANT RADIOGRAPHIC FINDING IN THE CHEST. Assessment & Plan - Diagnosis (1) Acute respiratory failure with hypoxia Is this a current diagnosis for this admission?: Yes Plan: Subsequent oxygenation and ventilation as needed (2) End stage chronic kidney disease Is this a current diagnosis for this admission?: Yes Plan: Hemodialysis Tuesday and Tuesday (3) Internal hernia Is this a current diagnosis for this admission?: Yes Plan: As per surgery (4) Intra-abdominal adhesions Is this a current diagnosis for this admission?: Yes Plan: As per surgery (5) Morbid obesity with BMI of 40.0-44.9, adult Is this a current diagnosis for this admission?: Yes Plan: A nutritional consult (6) Sleep apnea Qualifiers: Sleep apnea type: obstructive Qualified Code(s): G47.33 - Obstructive sleep apnea (adult) (pediatric) Is this a current diagnosis for this admission?: Yes Plan: Poor compliance with noninvasive positive pressure ventilation as per family - Time Total Critical Time (Minutes): 45
--- NOTE | 2018-02-13 15:23 | PDOC PROGRESS REPORT ---
Subjective Progress Note for:: 02/05/18 Subjective:: x Reason For Visit: PERSISTENT VOMITING ? DIABETES Physical Exam Vital Signs: Temp Pulse Resp BP Pulse Ox 96.1 F L 71 29 H 106/56 L 100 02/05/18 10:00 02/05/18 10:00 02/05/18 10:00 02/05/18 10:00 02/05/18 11:47 Intake & Output 02/04/18 02/05/18 02/06/18 06:59 06:59 06:59 Intake Total 635 1490 100 Output Total 1300 0 0 Balance -665 1490 100 Weight 102.6 kg 103.2 kg 103.2 kg General appearance: PRESENT: no acute distress, morbidly obese. ABSENT: cooperative, disheveled Head exam: PRESENT: atraumatic, normocephalic Eye exam: PRESENT: conjunctiva pale. ABSENT: nystagmus, scleral icterus Mouth exam: PRESENT: dry mucosa, neck supple, tongue midline, other - ET tube Neck exam: ABSENT: carotid bruit, JVD, lymphadenopathy, thyromegaly, tracheal deviation, tracheostomy Respiratory exam: PRESENT: decreased breath sounds, prolonged expiratory phas, rales, rhonchi, tachypnea, wheezes. ABSENT: retraction, stridor Cardiovascular exam: PRESENT: RRR, +S1, +S2, tachycardia Pulses: PRESENT: normal radial pulses GI/Abdominal exam: PRESENT: soft, other - Status post surgery Gentrourinary exam: PRESENT: indwelling catheter Extremities exam: ABSENT: calf tenderness, clubbing, joint swelling Musculoskeletal exam: ABSENT: deformity, dislocation Neurological exam: ABSENT: awake Skin exam: PRESENT: dry, warm Results Laboratory Results: 02/05/18 05:05 02/05/18 05:05 02/05/18 02/05/18 02/05/18 05:05 05:05 05:05 WBC 11.7 H RBC 4.66 Hgb 12.2 Hct 38.0 MCV 81 MCH 26.3 L MCHC 32.3 RDW 18.5 H Plt Count 134 L Seg Neutrophils % 62.9 Lymphocytes % 16.3 Monocytes % 14.3 H Eosinophils % 5.7 Basophils % 0.8 Absolute Neutrophils 7.4 Absolute Lymphocytes 1.9 Absolute Monocytes 1.7 H Absolute Eosinophils 0.7 H Absolute Basophils 0.1 Carbonic Acid 0.97 L HCO3/H2CO3 Ratio 26:1 ABG pH 7.51 H ABG pCO2 32.2 L ABG pO2 81.2 ABG HCO3 25.3 H ABG O2 Saturation 97.0 ABG Base Excess 2.8 FiO2 30% Sodium 138.8 Potassium 3.0 L* Chloride 96 L Carbon Dioxide 25 Anion Gap 18 BUN 34 H Creatinine 7.39 H Est GFR ( Amer) 7 L Est GFR (Non-Af Amer) 6 L Glucose 159 H Calcium 7.5 L Phosphorus 4.9 H Magnesium 1.9 Total Bilirubin 1.2 AST 36 ALT 43 Alkaline Phosphatase 181 H Total Protein 5.5 L Albumin 2.7 L 01/30/18 01/30/18 01/30/18 22:08 22:08 22:08 Creatine Kinase 48 CK-MB (CK-2) 0.76 Troponin I 0.054 NT-Pro-B Natriuret Pep [id number] H 01/31/18 01/31/18 01/31/18 04:27 04:27 13:17 Creatine Kinase 47 72 CK-MB (CK-2) 0.96 Troponin I 0.068 NT-Pro-B Natriuret Pep 01/31/18 01/31/18 01/31/18 13:17 18:20 18:20 Creatine Kinase 58 CK-MB (CK-2) 1.53 1.59 Troponin I 0.079 0.081 NT-Pro-B Natriuret Pep Impressions: Gastric Emptying Nuclear Medicine 01/30/18 00:00 IMPRESSION: No emptying of the administered activity from the stomach over 2 hours. KUB X-Ray 02/02/18 11:00 IMPRESSION: THE TIP OF THE NASOGASTRIC TUBE IN THE STOMACH. Abdomen Ultrasound 02/03/18 00:00 IMPRESSION: Post cholecystectomy. Otherwise unremarkable study Abdomen/Pelvis CT 02/03/18 07:00 IMPRESSION: Small bowel obstruction with transition point in the midline pelvis. Chest X-Ray 02/03/18 17:23 IMPRESSION: HEART ENLARGED WITHOUT FAILURE. NO OTHER SIGNIFICANT RADIOGRAPHIC FINDING IN THE CHEST. Assessment & Plan - Diagnosis (1) Acute respiratory failure with hypoxia Is this a current diagnosis for this admission?: Yes Plan: Subsequent oxygenation and ventilation as needed (2) Internal hernia Is this a current diagnosis for this admission?: Yes Plan: As per surgery (3) Intra-abdominal adhesions Is this a current diagnosis for this admission?: Yes Plan: As per surgery (4) Morbid obesity with BMI of 40.0-44.9, adult Is this a current diagnosis for this admission?: Yes Plan: A nutritional consult (5) End stage renal disease on dialysis Is this a current diagnosis for this admission?: Yes Plan: Hemodialysis as per nephrology (6) Sleep apnea Qualifiers: Sleep apnea type: obstructive Qualified Code(s): G47.33 - Obstructive sleep apnea (adult) (pediatric) Is this a current diagnosis for this admission?: Yes Plan: Poor compliance with noninvasive positive pressure ventilation as per family - Time Total Critical Time (Minutes): 40
--- NOTE | 2018-02-13 15:26 | PDOC PROGRESS REPORT ---
Subjective Progress Note for:: 02/07/18 Subjective:: x Reason For Visit: PERSISTENT VOMITING ? DIABETES Physical Exam Vital Signs: Temp Pulse Resp BP Pulse Ox 98.4 F 83 14 129/67 H 100 02/07/18 08:00 02/07/18 08:00 02/07/18 08:38 02/07/18 08:38 02/07/18 08:38 Intake & Output 02/06/18 02/07/18 02/08/18 06:59 06:59 06:59 Intake Total 1560 2757 43 Output Total 670 600 0 Balance 890 2157 43 Weight 102.4 kg 106.2 kg General appearance: PRESENT: no acute distress, disheveled, morbidly obese. ABSENT: cooperative Head exam: PRESENT: atraumatic, normocephalic Eye exam: PRESENT: conjunctiva pale, EOMI. ABSENT: nystagmus, scleral icterus Mouth exam: PRESENT: dry mucosa, neck supple, tongue midline, other - Endotracheal tube Neck exam: ABSENT: carotid bruit, JVD, lymphadenopathy, thyromegaly, tracheal deviation, tracheostomy Respiratory exam: PRESENT: decreased breath sounds, prolonged expiratory phas, rales, rhonchi, tachypnea, unlabored. ABSENT: retraction, stridor Cardiovascular exam: PRESENT: RRR, rubs, +S2, tachycardia Pulses: PRESENT: normal radial pulses GI/Abdominal exam: PRESENT: soft, other - Status post surgery status post surgery Gentrourinary exam: PRESENT: indwelling catheter Extremities exam: PRESENT: pedal edema. ABSENT: calf tenderness, clubbing, joint swelling Musculoskeletal exam: ABSENT: ambulatory, deformity, dislocation Neurological exam: ABSENT: awake Skin exam: PRESENT: dry, warm Results Laboratory Results: 02/07/18 05:05 02/07/18 05:05 02/06/18 02/06/18 02/07/18 15:22 15:22 05:05 WBC 12.2 H 13.4 H RBC 4.53 4.40 Hgb 11.8 L 11.7 L Hct 36.6 36.3 MCV 81 82 MCH 26.0 L 26.5 L MCHC 32.2 32.2 RDW 17.8 H 17.7 H Plt Count 134 L 150 Seg Neutrophils % 66.9 Lymphocytes % 9.6 L Monocytes % 13.4 H Eosinophils % 9.3 H Basophils % 0.8 Absolute Neutrophils 9.0 H Absolute Lymphocytes 1.3 Absolute Monocytes 1.8 H Absolute Eosinophils 1.2 H Absolute Basophils 0.1 Carbonic Acid HCO3/H2CO3 Ratio ABG pH ABG pCO2 ABG pO2 ABG HCO3 ABG O2 Saturation ABG Base Excess FiO2 Sodium Potassium Chloride Carbon Dioxide Anion Gap BUN Creatinine Est GFR ( Amer) Est GFR (Non-Af Amer) Glucose Calcium Phosphorus Magnesium 1.7 Total Bilirubin AST ALT Alkaline Phosphatase Total Protein Albumin Prealbumin 02/07/18 02/07/18 05:05 06:15 WBC RBC Hgb Hct MCV MCH MCHC RDW Plt Count Seg Neutrophils % Lymphocytes % Monocytes % Eosinophils % Basophils % Absolute Neutrophils Absolute Lymphocytes Absolute Monocytes Absolute Eosinophils Absolute Basophils Carbonic Acid 1.43 H HCO3/H2CO3 Ratio 18:1 ABG pH 7.36 ABG pCO2 47.4 H ABG pO2 99.7 ABG HCO3 26.1 H ABG O2 Saturation 97.3 ABG Base Excess 0.1 FiO2 35% Sodium 139.7 Potassium 4.2 Chloride 102 Carbon Dioxide 26 Anion Gap 12 BUN 24 H Creatinine 5.94 H Est GFR ( Amer) 9 L Est GFR (Non-Af Amer) 7 L Glucose 146 H Calcium 7.7 L Phosphorus 6.9 H Magnesium 1.8 Total Bilirubin 1.5 H AST 27 ALT 20 Alkaline Phosphatase 172 H Total Protein 5.7 L Albumin 2.6 L Prealbumin 10.9 L 01/30/18 01/30/18 01/30/18 22:08 22:08 22:08 Creatine Kinase 48 CK-MB (CK-2) 0.76 Troponin I 0.054 NT-Pro-B Natriuret Pep 21021 H 01/31/18 01/31/18 01/31/18 04:27 04:27 13:17 Creatine Kinase 47 72 CK-MB (CK-2) 0.96 Troponin I 0.068 NT-Pro-B Natriuret Pep 01/31/18 01/31/18 01/31/18 13:17 18:20 18:20 Creatine Kinase 58 CK-MB (CK-2) 1.53 1.59 Troponin I 0.079 0.081 NT-Pro-B Natriuret Pep Impressions: Gastric Emptying Nuclear Medicine 01/30/18 00:00 IMPRESSION: No emptying of the administered activity from the stomach over 2 hours. KUB X-Ray 02/02/18 11:00 IMPRESSION: THE TIP OF THE NASOGASTRIC TUBE IN THE STOMACH. Abdomen Ultrasound 02/03/18 00:00 IMPRESSION: Post cholecystectomy. Otherwise unremarkable study Abdomen/Pelvis CT 02/03/18 07:00 IMPRESSION: Small bowel obstruction with transition point in the midline pelvis. Chest X-Ray 02/07/18 06:00 IMPRESSION: Vascular congestion. SUPPORT DEVICE(S) IN EXPECTED LOCATIONS. Assessment & Plan - Diagnosis (1) Acute respiratory failure with hypoxia Is this a current diagnosis for this admission?: Yes Plan: Subsequent oxygenation and ventilation as needed (2) Internal hernia Is this a current diagnosis for this admission?: Yes Plan: As per surgery (3) Intra-abdominal adhesions Is this a current diagnosis for this admission?: Yes Plan: As per surgery (4) Morbid obesity with BMI of 40.0-44.9, adult Is this a current diagnosis for this admission?: Yes Plan: A nutritional consult (5) End stage renal disease on dialysis Is this a current diagnosis for this admission?: Yes Plan: Hemodialysis as per nephrology (6) Sleep apnea Qualifiers: Sleep apnea type: obstructive Qualified Code(s): G47.33 - Obstructive sleep apnea (adult) (pediatric) Is this a current diagnosis for this admission?: Yes Plan: Poor compliance with noninvasive positive pressure ventilation as per family - Time Total Critical Time (Minutes): 45
--- NOTE | 2018-02-13 15:28 | PDOC PROGRESS REPORT ---
Subjective Progress Note for:: 02/09/18 Subjective:: x Reason For Visit: PERSISTENT VOMITING ? DIABETES Physical Exam Vital Signs: Temp Pulse Resp BP Pulse Ox 97.7 F 91 26 H 126/61 H 93 02/09/18 11:29 02/08/18 22:00 02/09/18 09:25 02/09/18 09:25 02/09/18 09:25 Intake & Output 02/08/18 02/09/18 02/10/18 06:59 06:59 06:59 Intake Total 2431 1183 Output Total 300 2050 0 Balance 2131 -867 0 Weight 110.3 kg 112.4 kg General appearance: PRESENT: no acute distress, disheveled, morbidly obese. ABSENT: cooperative Head exam: PRESENT: atraumatic, normocephalic Eye exam: PRESENT: conjunctiva pale. ABSENT: EOMI, nystagmus, scleral icterus Mouth exam: PRESENT: dry mucosa, neck supple, tongue midline, other - ET tube Neck exam: ABSENT: carotid bruit, JVD, lymphadenopathy, thyromegaly, tracheal deviation, tracheostomy Respiratory exam: PRESENT: decreased breath sounds, prolonged expiratory phas, rales, rhonchi, tachypnea, unlabored, wheezes. ABSENT: stridor Cardiovascular exam: PRESENT: RRR, +S1, +S2, tachycardia Pulses: PRESENT: normal radial pulses GI/Abdominal exam: PRESENT: soft, other - Status post surgery Extremities exam: ABSENT: calf tenderness, clubbing, joint swelling Musculoskeletal exam: ABSENT: ambulatory, deformity, dislocation Neurological exam: ABSENT: awake Skin exam: PRESENT: dry, warm Results Laboratory Results: 02/09/18 04:41 02/09/18 04:41 02/09/18 02/09/18 02/09/18 04:41 04:41 04:41 WBC 17.6 H RBC 3.90 Hgb 10.1 L Hct 31.9 L MCV 82 MCH 25.9 L MCHC 31.6 L RDW 18.3 H Plt Count 158 Seg Neutrophils % 74.2 Lymphocytes % 8.4 L Monocytes % 12.1 Eosinophils % 4.1 Basophils % 1.2 Absolute Neutrophils 13.0 H Absolute Lymphocytes 1.5 Absolute Monocytes 2.1 H Absolute Eosinophils 0.7 H Absolute Basophils 0.2 Carbonic Acid 0.73 L HCO3/H2CO3 Ratio 36:1 ABG pH 7.65 H* ABG pCO2 24.3 L ABG pO2 141.0 H ABG HCO3 26.3 H ABG O2 Saturation 99.3 H ABG Base Excess 6.3 FiO2 50% Sodium 138.1 Potassium 4.0 Chloride 99 Carbon Dioxide 27 Anion Gap 12 BUN 25 H Creatinine 5.00 H Est GFR ( Amer) 11 L Est GFR (Non-Af Amer) 9 L Glucose 411 H* Calcium 8.4 Phosphorus 3.6 Total Bilirubin 2.6 H AST 25 ALT 12 Alkaline Phosphatase 172 H Total Protein 5.4 L Albumin 2.6 L Prealbumin 10.8 L 01/30/18 01/30/18 01/30/18 22:08 22:08 22:08 Creatine Kinase 48 CK-MB (CK-2) 0.76 Troponin I 0.054 NT-Pro-B Natriuret Pep [id number] H 01/31/18 01/31/18 01/31/18 04:27 04:27 13:17 Creatine Kinase 47 72 CK-MB (CK-2) 0.96 Troponin I 0.068 NT-Pro-B Natriuret Pep 01/31/18 01/31/18 01/31/18 13:17 18:20 18:20 Creatine Kinase 58 CK-MB (CK-2) 1.53 1.59 Troponin I 0.079 0.081 NT-Pro-B Natriuret Pep 02/07/18 02/07/18 02/08/18 19:00 19:00 04:20 Creatine Kinase 376 H 348 H CK-MB (CK-2) 1.20 Troponin I 0.110 NT-Pro-B Natriuret Pep 02/08/18 02/08/18 02/08/18 04:20 08:47 11:45 Creatine Kinase 296 H CK-MB (CK-2) 1.20 1.10 Troponin I 0.811 1.090 NT-Pro-B Natriuret Pep Impressions: Gastric Emptying Nuclear Medicine 01/30/18 00:00 IMPRESSION: No emptying of the administered activity from the stomach over 2 hours. KUB X-Ray 02/02/18 11:00 IMPRESSION: THE TIP OF THE NASOGASTRIC TUBE IN THE STOMACH. Abdomen Ultrasound 02/03/18 00:00 IMPRESSION: Post cholecystectomy. Otherwise unremarkable study Abdomen/Pelvis CT 02/03/18 07:00 IMPRESSION: Small bowel obstruction with transition point in the midline pelvis. Head CT 02/08/18 00:00 IMPRESSION: No significant change. Chronic white matter changes. Focal encephalomalacia medial left occipital lobe EVIDENCE OF ACUTE STROKE: NO. Chest X-Ray 02/09/18 06:00 IMPRESSION: Increasing atelectasis or pneumonia left lower lobe. No pneumothorax. Assessment & Plan - Diagnosis (1) Acute respiratory failure with hypoxia Is this a current diagnosis for this admission?: Yes Plan: Subsequent oxygenation and ventilation as needed (2) Internal hernia Is this a current diagnosis for this admission?: Yes Plan: As per surgery (3) Intra-abdominal adhesions Is this a current diagnosis for this admission?: Yes Plan: As per surgery (4) Morbid obesity with BMI of 40.0-44.9, adult Is this a current diagnosis for this admission?: Yes Plan: A nutritional consult (5) End stage renal disease on dialysis Is this a current diagnosis for this admission?: Yes (6) Sleep apnea Qualifiers: Sleep apnea type: obstructive Qualified Code(s): G47.33 - Obstructive sleep apnea (adult) (pediatric) Is this a current diagnosis for this admission?: Yes Plan: Poor compliance with noninvasive positive pressure ventilation as per family - Time Total Critical Time (Minutes): 45
--- NOTE | 2018-02-13 15:30 | PDOC PROGRESS REPORT ---
Subjective Progress Note for:: 02/10/18 Subjective:: x Reason For Visit: PERSISTENT VOMITING ? DIABETES Physical Exam Vital Signs: Temp Pulse Resp BP Pulse Ox 97.9 F 81 11 L 165/71 H 100 02/10/18 10:00 02/10/18 10:00 02/10/18 10:41 02/10/18 10:41 02/10/18 10:11 Intake & Output 02/09/18 02/10/18 02/11/18 06:59 06:59 06:59 Intake Total 1183 Output Total 2050 0 Balance -867 0 Weight 112.4 kg 113.6 kg 113.6 kg General appearance: PRESENT: no acute distress, disheveled, morbidly obese. ABSENT: cooperative Head exam: PRESENT: atraumatic, normocephalic Eye exam: PRESENT: conjunctiva pale. ABSENT: nystagmus, scleral icterus Mouth exam: PRESENT: dry mucosa, neck supple, tongue midline, other - ET tube Neck exam: ABSENT: carotid bruit, JVD, lymphadenopathy, thyromegaly, tracheal deviation, tracheostomy Respiratory exam: PRESENT: decreased breath sounds, prolonged expiratory phas, rales, rhonchi, tachypnea, unlabored, wheezes Cardiovascular exam: PRESENT: RRR, +S1, +S2, tachycardia Pulses: PRESENT: normal radial pulses GI/Abdominal exam: PRESENT: soft, other - Status post surgery Gentrourinary exam: PRESENT: indwelling catheter Extremities exam: PRESENT: pedal edema. ABSENT: calf tenderness, clubbing, joint swelling Musculoskeletal exam: ABSENT: ambulatory, deformity, dislocation Neurological exam: ABSENT: awake Skin exam: PRESENT: dry, warm Results Laboratory Results: 02/10/18 05:30 02/10/18 05:30 02/10/18 02/10/18 02/10/18 05:30 05:30 05:30 WBC 17.7 H RBC 3.94 Hgb 10.2 L Hct 31.8 L MCV 81 MCH 25.8 L MCHC 31.9 L RDW 18.1 H Plt Count 238 Seg Neutrophils % Not Reportable Lymphocytes % Not Reportable Monocytes % Not Reportable Eosinophils % Not Reportable Basophils % Not Reportable Absolute Neutrophils Not Reportable Absolute Lymphocytes Not Reportable Absolute Monocytes Not Reportable Absolute Eosinophils Not Reportable Absolute Basophils Not Reportable Carbonic Acid 0.98 L HCO3/H2CO3 Ratio 27:1 ABG pH 7.53 H ABG pCO2 32.7 L ABG pO2 97.8 ABG HCO3 26.8 H ABG O2 Saturation 98.1 H ABG Base Excess 4.4 FiO2 30% Sodium 138.9 Potassium 4.0 Chloride 99 Carbon Dioxide 25 Anion Gap 15 BUN 36 H Creatinine 5.61 H Est GFR ( Amer) 9 L Est GFR (Non-Af Amer) 8 L Glucose 237 H Calcium 8.9 Magnesium 2.0 01/30/18 01/30/18 01/30/18 22:08 22:08 22:08 Creatine Kinase 48 CK-MB (CK-2) 0.76 Troponin I 0.054 NT-Pro-B Natriuret Pep [id number] H 01/31/18 01/31/18 01/31/18 04:27 04:27 13:17 Creatine Kinase 47 72 CK-MB (CK-2) 0.96 Troponin I 0.068 NT-Pro-B Natriuret Pep 01/31/18 01/31/18 01/31/18 13:17 18:20 18:20 Creatine Kinase 58 CK-MB (CK-2) 1.53 1.59 Troponin I 0.079 0.081 NT-Pro-B Natriuret Pep 02/07/18 02/07/18 02/08/18 19:00 19:00 04:20 Creatine Kinase 376 H 348 H CK-MB (CK-2) 1.20 Troponin I 0.110 NT-Pro-B Natriuret Pep 02/08/18 02/08/18 02/08/18 04:20 08:47 11:45 Creatine Kinase 296 H CK-MB (CK-2) 1.20 1.10 Troponin I 0.811 1.090 NT-Pro-B Natriuret Pep Impressions: Gastric Emptying Nuclear Medicine 01/30/18 00:00 IMPRESSION: No emptying of the administered activity from the stomach over 2 hours. KUB X-Ray 02/02/18 11:00 IMPRESSION: THE TIP OF THE NASOGASTRIC TUBE IN THE STOMACH. Abdomen Ultrasound 02/03/18 00:00 IMPRESSION: Post cholecystectomy. Otherwise unremarkable study Abdomen/Pelvis CT 02/03/18 07:00 IMPRESSION: Small bowel obstruction with transition point in the midline pelvis. Head CT 02/08/18 00:00 IMPRESSION: No significant change. Chronic white matter changes. Focal encephalomalacia medial left occipital lobe EVIDENCE OF ACUTE STROKE: NO. Chest X-Ray 02/10/18 06:00 IMPRESSION: Little interval change copyright 2011 [employer]- All Rights Reserved Assessment & Plan - Diagnosis (1) End stage chronic kidney disease Is this a current diagnosis for this admission?: Yes Plan: Hemodialysis Tuesday and Tuesday (2) Acute pulmonary edema Is this a current diagnosis for this admission?: Yes Plan: Volume overload (3) CHF (congestive heart failure) Is this a current diagnosis for this admission?: Yes Plan: Hypertensive cardiomegaly renal failure (4) Sleep apnea Qualifiers: Sleep apnea type: obstructive Qualified Code(s): G47.33 - Obstructive sleep apnea (adult) (pediatric) Is this a current diagnosis for this admission?: Yes Plan: Poor compliance with noninvasive positive pressure ventilation as per family (5) Type 2 diabetes mellitus Qualifiers: Diabetes mellitus [facility] insulin use: with mcfp use Diabetes mellitus complication status: with kidney complications Diabetes mellitus complication detail: with chronic kidney disease Chronic kidney disease stage: on chronic dialysis Qualified Code(s): E11.22 - Type 2 diabetes mellitus with diabetic chronic kidney disease; N18.6 - End stage renal disease; Z79.4 - pen[facility]entiary (current) use of insulin; Z99.2 - Dependence on renal dialysis Is this a current diagnosis for this admission?: Yes Plan: Poor compliance (6) Internal hernia Is this a current diagnosis for this admission?: Yes Plan: As per surgery (7) Intra-abdominal adhesions Is this a current diagnosis for this admission?: Yes Plan: As per surgery - Time Total Critical Time (Minutes): 45
--- NOTE | 2018-02-13 15:32 | PDOC PROGRESS REPORT ---
Subjective Progress Note for:: 02/11/18 Subjective:: x Reason For Visit: PERSISTENT VOMITING ? DIABETES Physical Exam Vital Signs: Temp Pulse Resp BP Pulse Ox 98.6 F 83 14 99/53 L 99 02/11/18 05:53 02/11/18 08:00 02/11/18 07:42 02/11/18 07:42 02/11/18 08:00 Intake & Output 02/10/18 02/11/18 02/12/18 06:59 06:59 06:59 Intake Total 550 610 40 Output Total 0 5300 0 Balance 550 -4690 40 Weight 113.6 kg 107.6 kg General appearance: PRESENT: no acute distress, disheveled, morbidly obese. ABSENT: cooperative Head exam: PRESENT: atraumatic, normocephalic Eye exam: PRESENT: conjunctiva pale, EOMI. ABSENT: nystagmus, scleral icterus Mouth exam: PRESENT: dry mucosa, neck supple, tongue midline, other - ET tube Neck exam: ABSENT: carotid bruit, JVD, lymphadenopathy, thyromegaly, tracheal deviation, tracheostomy Respiratory exam: PRESENT: decreased breath sounds, prolonged expiratory phas, rales, rhonchi, unlabored. ABSENT: retraction, stridor, symmetrical, tachypnea Cardiovascular exam: PRESENT: RRR, +S1, +S2. ABSENT: tachycardia Pulses: PRESENT: normal radial pulses GI/Abdominal exam: PRESENT: soft, other - Status post surgery Extremities exam: PRESENT: pedal edema. ABSENT: calf tenderness, clubbing, joint swelling Musculoskeletal exam: ABSENT: ambulatory, deformity, dislocation Neurological exam: PRESENT: altered, awake Skin exam: PRESENT: dry, warm Results Laboratory Results: 02/11/18 06:01 02/11/18 06:01 02/11/18 02/11/18 02/11/18 06:01 06:01 06:01 WBC 17.2 H RBC 3.79 Hgb 10.0 L Hct 30.8 L MCV 82 MCH 26.4 L MCHC 32.4 RDW 17.8 H Plt Count 288 Seg Neutrophils % 68.2 Lymphocytes % 13.3 Monocytes % 12.3 Eosinophils % 5.1 Basophils % 1.1 Absolute Neutrophils 11.8 H Absolute Lymphocytes 2.3 Absolute Monocytes 2.1 H Absolute Eosinophils 0.9 H Absolute Basophils 0.2 Carbonic Acid 1.25 HCO3/H2CO3 Ratio 23:1 ABG pH 7.47 H ABG pCO2 41.4 ABG pO2 92.3 ABG HCO3 29.7 H ABG O2 Saturation 97.5 ABG Base Excess 5.6 FiO2 30% Sodium 137.9 Potassium 4.4 Chloride 96 L Carbon Dioxide 29 Anion Gap 13 BUN 28 H Creatinine 5.25 H Est GFR ( Amer) 10 L Est GFR (Non-Af Amer) 8 L Glucose 116 H Calcium 9.2 Magnesium 2.0 Total Bilirubin 1.9 H AST 200 H ALT 56 H Alkaline Phosphatase 357 H Total Protein 5.9 L Albumin 2.8 L 01/30/18 01/30/18 01/30/18 22:08 22:08 22:08 Creatine Kinase 48 CK-MB (CK-2) 0.76 Troponin I 0.054 NT-Pro-B Natriuret Pep 92011 H 01/31/18 01/31/18 01/31/18 04:27 04:27 13:17 Creatine Kinase 47 72 CK-MB (CK-2) 0.96 Troponin I 0.068 NT-Pro-B Natriuret Pep 01/31/18 01/31/18 01/31/18 13:17 18:20 18:20 Creatine Kinase 58 CK-MB (CK-2) 1.53 1.59 Troponin I 0.079 0.081 NT-Pro-B Natriuret Pep 02/07/18 02/07/18 02/08/18 19:00 19:00 04:20 Creatine Kinase 376 H 348 H CK-MB (CK-2) 1.20 Troponin I 0.110 NT-Pro-B Natriuret Pep 02/08/18 02/08/18 02/08/18 04:20 08:47 11:45 Creatine Kinase 296 H CK-MB (CK-2) 1.20 1.10 Troponin I 0.811 1.090 NT-Pro-B Natriuret Pep Impressions: Gastric Emptying Nuclear Medicine 01/30/18 00:00 IMPRESSION: No emptying of the administered activity from the stomach over 2 hours. KUB X-Ray 02/02/18 11:00 IMPRESSION: THE TIP OF THE NASOGASTRIC TUBE IN THE STOMACH. Abdomen Ultrasound 02/03/18 00:00 IMPRESSION: Post cholecystectomy. Otherwise unremarkable study Abdomen/Pelvis CT 02/03/18 07:00 IMPRESSION: Small bowel obstruction with transition point in the midline pelvis. Head CT 02/08/18 00:00 IMPRESSION: No significant change. Chronic white matter changes. Focal encephalomalacia medial left occipital lobe EVIDENCE OF ACUTE STROKE: NO. Chest X-Ray 02/11/18 06:00 IMPRESSION: Improvement in pulmonary vascular congestion. Other findings are stable copyright 2011 [employer]- All Rights Reserved Assessment & Plan - Diagnosis (1) End stage chronic kidney disease Is this a current diagnosis for this admission?: Yes Plan: Hemodialysis Tuesday and Tuesday (2) Acute pulmonary edema Is this a current diagnosis for this admission?: Yes Plan: Volume overload (3) CHF (congestive heart failure) Is this a current diagnosis for this admission?: Yes Plan: Hypertensive cardiomegaly renal failure (4) Sleep apnea Qualifiers: Sleep apnea type: obstructive Qualified Code(s): G47.33 - Obstructive sleep apnea (adult) (pediatric) Is this a current diagnosis for this admission?: Yes Plan: Poor compliance with noninvasive positive pressure ventilation as per family (5) Type 2 diabetes mellitus Qualifiers: Diabetes mellitus nursing home insulin use: with [facility] use Diabetes mellitus complication status: with kidney complications Diabetes mellitus complication detail: with chronic kidney disease Chronic kidney disease stage: on chronic dialysis Qualified Code(s): E11.22 - Type 2 diabetes mellitus with diabetic chronic kidney disease; N18.6 - End stage renal disease; Z79.4 - snf (current) use of insulin; Z99.2 - Dependence on renal dialysis Is this a current diagnosis for this admission?: Yes Plan: Poor compliance (6) Internal hernia Is this a current diagnosis for this admission?: Yes Plan: As per surgery (7) Intra-abdominal adhesions Is this a current diagnosis for this admission?: Yes Plan: As per surgery (8) Acute respiratory failure with hypoxia Is this a current diagnosis for this admission?: Yes Plan: With the reinitiation of home medications tachypnea is resolved patient begins to respond to commands minute ventilation FiO2 respiratory rate is now consistent with successful extubation will proceed with extubation - Time Total Critical Time (Minutes): 55
--- NOTE | 2018-02-13 15:35 | PDOC PROGRESS REPORT ---
Subjective Progress Note for:: 02/12/18 Subjective:: Stable on BiPAP Reason For Visit: PERSISTENT VOMITING ? DIABETES Physical Exam Vital Signs: Temp Pulse Resp BP Pulse Ox 97.9 F 96 22 H 75/51 L 97 02/12/18 11:48 02/11/18 20:35 02/12/18 11:50 02/12/18 11:04 02/12/18 11:50 Intake & Output 02/11/18 02/12/18 02/13/18 06:59 06:59 06:59 Intake Total 610 330 Output Total 5300 0 0 Balance -4690 330 0 Weight 107.6 kg 107.9 kg General appearance: PRESENT: no acute distress, disheveled, morbidly obese Head exam: PRESENT: atraumatic, normocephalic Eye exam: PRESENT: conjunctiva pale, EOMI. ABSENT: nystagmus, scleral icterus Mouth exam: PRESENT: dry mucosa, neck supple, tongue midline Neck exam: ABSENT: carotid bruit, JVD, lymphadenopathy, thyromegaly, tracheal deviation, tracheostomy Respiratory exam: PRESENT: decreased breath sounds, prolonged expiratory phas, rales, rhonchi, unlabored. ABSENT: retraction, stridor, tachypnea Cardiovascular exam: PRESENT: RRR, +S1, +S2. ABSENT: tachycardia Pulses: PRESENT: normal radial pulses GI/Abdominal exam: PRESENT: soft, other - Status post surgery Extremities exam: PRESENT: pedal edema. ABSENT: calf tenderness, clubbing, full ROM, joint swelling Musculoskeletal exam: ABSENT: deformity, dislocation Neurological exam: PRESENT: altered, awake Skin exam: PRESENT: dry, warm Results Laboratory Results: 02/11/18 06:01 02/12/18 05:20 02/12/18 02/12/18 05:20 09:15 Carbonic Acid 1.32 HCO3/H2CO3 Ratio 21:1 ABG pH 7.42 ABG pCO2 43.9 ABG pO2 75.2 L ABG HCO3 27.8 H ABG O2 Saturation 95.3 ABG Base Excess 2.9 FiO2 30% Sodium 135.1 L Potassium 5.9 H D Chloride 94 L Carbon Dioxide 26 Anion Gap 15 BUN 45 H Creatinine 6.16 H Est GFR ( Amer) 8 L Est GFR (Non-Af Amer) 7 L Glucose 204 H Calcium 9.4 01/30/18 01/30/1801/30/18 22:08 22:08 22:08 Creatine Kinase 48 CK-MB (CK-2) 0.76 Troponin I 0.054 NT-Pro-B Natriuret Pep 97016 H 01/31/18 01/31/18 01/31/18 04:27 04:27 13:17 Creatine Kinase 47 72 CK-MB (CK-2) 0.96 Troponin I 0.068 NT-Pro-B Natriuret Pep 01/31/18 01/31/18 01/31/18 13:17 18:20 18:20 Creatine Kinase 58 CK-MB (CK-2) 1.53 1.59 Troponin I 0.079 0.081 NT-Pro-B Natriuret Pep 02/07/18 02/07/18 02/08/18 19:00 19:00 04:20 Creatine Kinase 376 H 348 H CK-MB (CK-2) 1.20 Troponin I 0.110 NT-Pro-B Natriuret Pep 02/08/18 02/08/18 02/08/18 04:20 08:47 11:45 Creatine Kinase 296 H CK-MB (CK-2) 1.20 1.10 Troponin I 0.811 1.090 NT-Pro-B Natriuret Pep Impressions: Gastric Emptying Nuclear Medicine 01/30/18 00:00 IMPRESSION: No emptying of the administered activity from the stomach over 2 hours. KUB X-Ray 02/02/18 11:00 IMPRESSION: THE TIP OF THE NASOGASTRIC TUBE IN THE STOMACH. Abdomen Ultrasound 02/03/18 00:00 IMPRESSION: Post cholecystectomy. Otherwise unremarkable study Abdomen/Pelvis CT 02/03/18 07:00 IMPRESSION: Small bowel obstruction with transition point in the midline pelvis. Head CT 02/08/18 00:00 IMPRESSION: No significant change. Chronic white matter changes. Focal encephalomalacia medial left occipital lobe EVIDENCE OF ACUTE STROKE: NO. Chest X-Ray 02/11/18 06:00 IMPRESSION: Improvement in pulmonary vascular congestion. Other findings are stable copyright 2010 [employer]- All Rights Reserved Assessment & Plan - Diagnosis (1) End stage chronic kidney disease Is this a current diagnosis for this admission?: Yes Plan: Hemodialysis Tuesday and Tuesday (2) Acute pulmonary edema Is this a current diagnosis for this admission?: Yes Plan: Volume overload (3) CHF (congestive heart failure) Is this a current diagnosis for this admission?: Yes Plan: Hypertensive cardiomegaly renal failure (4) Sleep apnea Qualifiers: Sleep apnea type: obstructive Qualified Code(s): G47.33 - Obstructive sleep apnea (adult) (pediatric) Is this a current diagnosis for this admission?: Yes Plan: Poor compliance with noninvasive positive pressure ventilation as per family (5) Type 2 diabetes mellitus Qualifiers: Diabetes mellitus terminal gauger insulin use: with shelter use Diabetes mellitus complication status: with kidney complications Diabetes mellitus complication detail: with chronic kidney disease Chronic kidney disease stage: on chronic dialysis Qualified Code(s): E11.22 - Type 2 diabetes mellitus with diabetic chronic kidney disease; N18.6 - End stage renal disease; Z79.4 - custodial (current) use of insulin; Z99.2 - Dependence on renal dialysis Is this a current diagnosis for this admission?: Yes Plan: Poor compliance (6) Internal hernia Is this a current diagnosis for this admission?: Yes Plan: As per surgery (7) Intra-abdominal adhesions Is this a current diagnosis for this admission?: Yes Plan: As per surgery - Time Total Critical Time (Minutes): 45
[2018-02-13] MEDS ORDERED: VANCOMYCIN HCL 500 MG in DEXTROSE 5%-WATER 100 ML IV SCH (18:00)
[2018-02-13] MEDS: INSULIN LISPRO 100 UNIT/ML 3 ML VIAL SUBCUT PRN (18:21)
[2018-02-13] MEDS: FAMOTIDINE 20 MG TABLET NG SCH (21:15)
[2018-02-13] MEDS: OLANZAPINE 2.5 MG TABLET PO SCH (21:15)
[2018-02-14] MEDS: INSULIN LISPRO 100 UNIT/ML 3 ML VIAL SUBCUT PRN ×4 (00:21→23:57)
[2018-02-14 04:57] LABS: ARTERIAL BLOOD BASE EXCESS 3.2 mmol/L; ARTERIAL BLOOD HCO3 28.4 mmol/L (20-24); ARTERIAL BLOOD O2 SATURATION 95.5 % (94-98); ARTERIAL BLOOD PCO2 46.4 mmHg (35-45); ARTERIAL BLOOD PH 7.41 (7.35-7.45); ARTERIAL BLOOD PO2 77.9 mmHg (80-100); ARTERIAL BLOOD TOTAL CO2 29.8 mmol/L (21-25)
[2018-02-14 04:59] LABS: ARTERIAL BLOOD FIO2 30%; HEMOGLOBIN 9.9 g/dL (12.0-15.5); MEAN CORPUSCULAR HEMOGLOBIN 26.1 pg (27.0-33.4); MEAN CORPUSCULAR HGB CONC 31.9 g/dL (32.0-36.0); MEAN CORPUSCULAR VOLUME 82 fl (80-97); PLATELET COUNT 390 10^3/uL (150-450); RED BLOOD COUNT 3.79 10^6/uL (3.72-5.28); RED CELL DISTRIBUTION WIDTH 18.3 % (11.5-14.0); WHITE BLOOD COUNT 15.8 10^3/uL (4.0-10.5)
[2018-02-14] MEDS: METOPROLOL TARTRATE 25 MG TABLET NG SCH ×4 (05:12→23:58)
[2018-02-14] MEDS: HEPARIN SOD (PORCINE) 5,000 UNIT/ML 1 ML SYRINGE SUBCUT SCH ×3 (05:12→21:14)
[2018-02-14] MEDS: METOCLOPRAMIDE HCL INJ/PF 10 MG/2 ML SDV IV SCH ×3 (05:12→21:15)
[2018-02-14 05:24] LABS: ALANINE AMINOTRANSFERASE 46 U/L (9-52); ALBUMIN 2.9 g/dL (3.5-5.0); ALKALINE PHOSPHATASE 335 U/L (38-126); ANION GAP 13 (5-19); ASPARTATE AMINO TRANSFERASE 72 U/L (14-36); BILIRUBIN,DIRECT 1.3 mg/dL (0.0-0.4); BILIRUBIN,TOTAL 1.4 mg/dL (0.2-1.3); CALCIUM 9.2 mg/dL (8.4-10.2); CARBON DIOXIDE 29 mmol/L (22-30); CHLORIDE 96 mmol/L (98-107); GLUCOSE 165 mg/dL (75-110); SODIUM 138.4 mmol/L (137-145); TOTAL PROTEIN 6.2 g/dL (6.3-8.2)
[2018-02-14 05:47] LABS: ABSOLUTE LYMPHOCYTES# (MANUAL) 4.1 10^3/uL (0.5-4.7); ABSOLUTE MONOCYTES # (MANUAL) 1.7 10^3/uL (0.1-1.4); ABSOLUTE NEUTROPHILS# (MANUAL) 9.2 10^3/uL (1.7-8.2); BASOPHILS % (MANUAL) 1 % (0-2); EOSINOPHILS % (MANUAL) 4 % (0-6); LYMPHOCYTES % (MANUAL) 26 % (13-45); MONOCYTES % (MANUAL) 11 % (3-13); SEGMENTED NEUTROPHILS % (MAN) 58 % (42-78); TOTAL CELLS COUNTED 100
[2018-02-14 05:53] LABS: ANISOCYTOSIS 1+; OVALOCYTES 1+; POIKILOCYTOSIS SLIGHT; SCHISTOCYTES SLIGHT; TOXIC GRANULATION SLIGHT; TOXIC VACUOLATION PRESENT
[2018-02-14 05:54] LABS: PLATELET COMMENT ADEQUATE
[2018-02-14 06:25] LABS: BLOOD UREA NITROGEN 36 mg/dL (7-20); POTASSIUM 4.4 mmol/L (3.6-5.0)
--- NOTE | 2018-02-14 06:55 | RADIOLOGY REPORT (SQ) ---
EXAM DESCRIPTION: XR CHEST 1 VIEW COMPLETED DATE/TME: 02/14/2018 06:00 CLINICAL HISTORY: Respiratory Distress. 58 years Female, Respiratory failure COMPARISON: 3 days prior. NUMBER OF VIEWS/TECHNIQUE: 1/AP FINDINGS: Moderate central edema pattern.Severe cardiac silhouette enlargement. Likely adequate appearing enteric tube partially obscured. Left subclavian graft.No pneumothorax. Stable bony thorax. IMPRESSION: Interval extubation.
[2018-02-14] MEDS: ACETYLCYSTEINE 20% SOLN 800 MG/4 ML VIAL.NEB NEB SCH ×2 (08:04→20:51)
[2018-02-14] MEDS: IPRATROPIUM/ALBUTEROL 0.5-2.5 MG/3 ML AMPUL NEB PRN ×2 (08:04→20:52)
--- NOTE | 2018-02-14 08:59 | PDOC PROGRESS REPORT ---
Subjective Progress Note for:: 02/14/18 Subjective:: The patient is slightly more awake today. She is moving spontaneously. She is attempting to remove her BiPAP mask. Reason For Visit: PERSISTENT VOMITING ? DIABETES Physical Exam Vital Signs: Temp Pulse Resp BP Pulse Ox 98.1 F 86 14 118/70 98 02/14/18 08:00 02/14/18 08:05 02/14/18 08:05 02/14/18 08:00 02/14/18 08:05 Intake & Output 02/13/18 02/14/18 02/15/18 06:59 06:59 06:59 Intake Total 852 702 Output Total 100 5200 Balance 752 -4498 Weight 108.9 kg 104.6 kg General appearance: PRESENT: mild distress Eye exam: PRESENT: scleral icterus Mouth exam: PRESENT: moist, tongue midline Respiratory exam: PRESENT: symmetrical, other - Still with coarse congested breath sounds bilaterally. ABSENT: accessory muscle use, stridor, wheezes Cardiovascular exam: PRESENT: RRR, +S1, +S2, systolic murmur - 2/6 GI/Abdominal exam: PRESENT: normal bowel sounds, soft, other - Pendulous abdomen. ABSENT: tenderness Extremities exam: ABSENT: pedal edema Neurological exam: PRESENT: alert, awake, other - Opens eyes to verbal stimulus. Will attempt to follow simple commands. She did try and establish eye contact. Psychiatric exam: PRESENT: flat affect. ABSENT: agitated, anxious Focused psych exam: ABSENT: restlessness Results Laboratory Results: 02/14/18 04:45 02/14/18 04:45 02/14/18 02/14/18 02/14/18 04:45 04:45 04:45 WBC 15.8 H RBC 3.79 Hgb 9.9 L Hct 31.0 L MCV 82 MCH 26.1 L MCHC 31.9 L RDW 18.3 H Plt Count 390 Seg Neutrophils % Not Reportable Lymphocytes % Not Reportable Monocytes % Not Reportable Eosinophils % Not Reportable Basophils % Not Reportable Absolute Neutrophils Not Reportable Absolute Lymphocytes Not Reportable Absolute Monocytes Not Reportable Absolute Eosinophils Not Reportable Absolute Basophils Not Reportable Carbonic Acid 1.40 H HCO3/H2CO3 Ratio 20:1 ABG pH 7.41 ABG pCO2 46.4 H ABG pO2 77.9 L ABG HCO3 28.4 H ABG O2 Saturation 95.5 ABG Base Excess 3.2 FiO2 30% Sodium 138.4 Potassium 4.4 D Chloride 96 L Carbon Dioxide 29 Anion Gap 13 BUN 36 H D Creatinine 5.54 H Est GFR ( Amer) 9 L Est GFR (Non-Af Amer) 8 L Glucose 165 H Calcium 9.2 Magnesium 2.2 Total Bilirubin 1.4 H AST 72 H ALT 46 Alkaline Phosphatase 335 H Total Protein 6.2 L Albumin 2.9 L 02/09/18 13:00 Tracheal Aspirate Gram Stain - Final 02/09/18 13:00 Tracheal Aspirate Sputum Culture - Final Proteus Mirabilis C.albicans/C.dubliniensis Reduced Normal Jennifer 01/30/18 01/30/18 01/30/18 22:08 22:08 22:08 Creatine Kinase 48 CK-MB (CK-2) 0.76 Troponin I 0.054 NT-Pro-B Natriuret Pep 26780 H 01/31/18 01/31/18 01/31/18 04:27 04:27 13:17 Creatine Kinase 47 72 CK-MB (CK-2) 0.96 Troponin I 0.068 NT-Pro-B Natriuret Pep 01/31/18 01/31/18 01/31/18 13:17 18:20 18:20 Creatine Kinase 58 CK-MB (CK-2) 1.53 1.59 Troponin I 0.079 0.081 NT-Pro-B Natriuret Pep 02/07/18 02/07/18 02/08/18 19:00 19:00 04:20 Creatine Kinase 376 H 348 H CK-MB (CK-2) 1.20 Troponin I 0.110 NT-Pro-B Natriuret Pep 02/08/18 02/08/18 02/08/18 04:20 08:47 11:45 Creatine Kinase 296 H CK-MB (CK-2) 1.20 1.10 Troponin I 0.811 1.090 NT-Pro-B Natriuret Pep Impressions: Gastric Emptying Nuclear Medicine 01/30/18 00:00 IMPRESSION: No emptying of the administered activity from the stomach over 2 hours. KUB X-Ray 02/02/18 11:00 IMPRESSION: THE TIP OF THE NASOGASTRIC TUBE IN THE STOMACH. Abdomen Ultrasound 02/03/18 00:00 IMPRESSION: Post cholecystectomy. Otherwise unremarkable study Abdomen/Pelvis CT 02/03/18 07:00 IMPRESSION: Small bowel obstruction with transition point in the midline pelvis. Head CT 02/08/18 00:00 IMPRESSION: No significant change. Chronic white matter changes. Focal encephalomalacia medial left occipital lobe EVIDENCE OF ACUTE STROKE: NO. Chest X-Ray 02/14/18 06:00 IMPRESSION: Interval extubation. Assessment & Plan - Diagnosis (1) Acute respiratory failure with hypoxia Is this a current diagnosis for this admission?: Yes Plan: Currently on BiPAP. Will institute a trial of nasal cannula. Pulmonology continues to see the patient. If respiratory distress occurs we can check a blood gas and return her to BiPAP. (2) End stage chronic kidney disease Is this a current diagnosis for this admission?: Yes Plan: Hemodialysis was able to pull another 5 L of fluid yesterday. Scheduled for dialysis tomorrow. (3) Abnormal liver function tests Is this a current diagnosis for this admission?: Yes Plan: Chemistries appear to be plateauing. I would expect them to start normalizing soon. (4) Type 2 diabetes mellitus Qualifiers: Diabetes mellitus longterm insulin use: with terminal supervisor use Diabetes mellitus complication status: with kidney complications Diabetes mellitus complication detail: with chronic kidney disease Chronic kidney disease stage: on chronic dialysis Qualified Code(s): E11.22 - Type 2 diabetes mellitus with diabetic chronic kidney disease; N18.6 - End stage renal disease; Z79.4 - jail (current) use of insulin; Z99.2 - Dependence on renal dialysis Is this a current diagnosis for this admission?: Yes Plan: Continue the aggressive sliding scale. Her goal is to keep Accu-Cheks less than 200 with a goal of 150. We may need to adjust as the tube feeds increase. (5) Diabetic gastroparesis Is this a current diagnosis for this admission?: Yes Plan: Seems improved. I will continue the renal dosed metoclopramide. (6) Hypotension Is this a current diagnosis for this admission?: Yes Plan: Today she is off of pressors. She tolerated hemodialysis without any hypotension yesterday. (7) Intra-abdominal adhesions Is this a current diagnosis for this admission?: Yes Plan: See surgical note (8) Morbid obesity with BMI of 40.0-44.9, adult Is this a current diagnosis for this admission?: Yes Plan: No acute intervention. We are trying to meet her nutritional goals with tube feeds. Her current rate is tolerated but not to goal. We will slowly increase the rate with a initial goal of 40 mL an hour. Hopefully as she wakes she will also start an oral diet. (9) Leukocytosis Qualifiers: Leukocytosis type: unspecified Qualified Code(s): D72.829 - Elevated white blood cell count, unspecified Is this a current diagnosis for this admission?: Yes Plan: We are finally seeing a slow improvement in her white blood cell count. She is down to 15,000 today from the 17,000 that she has been over the last 4-5 days. Continue the vancomycin, aztreonam and cefepime. - Time Time Spent with patient: 15-24 minutes Medications reviewed and adjusted accordingly: Yes Anticipated discharge: Home - Plan Summary Plan Summary: She is slightly better today. If she continues to improve and tolerates her trial of nasal cannula oxygen I will consider resuming some of her other medications. In lieu of the Zyprexa we will likely resume her tricyclic antidepressant at bedtime. Resumption of her medications will be a slow but steady process based on how she tolerates the changes.
[2018-02-14] MEDS: GUAIFENESIN SYRP 200 MG/10 ML UDC PO SCH ×4 (10:26→21:15)
[2018-02-14] MEDS: AZTREONAM 0.5 GM in DEXTROSE 5%-WATER 50 ML IV SCH ×2 (10:28→21:14)
[2018-02-14] MEDS: CEFEPIME 2 GM/D5W RTU 2 GM/50 ML RTUPB IV SCH (13:10)
[2018-02-14] MEDS: OLANZAPINE 2.5 MG TABLET PO SCH (21:14)
[2018-02-14] MEDS: FAMOTIDINE 20 MG TABLET NG SCH (21:15)
[2018-02-15 04:59] LABS: ABSOLUTE BASOPHILS # (AUTO) 0.2 10^3/uL (0.0-0.2); ABSOLUTE EOSINOPHILS # (AUTO) 0.5 10^3/uL (0.0-0.6); ABSOLUTE MONOCYTES (AUTO) 1.9 10^3/uL (0.1-1.4); ABSOLUTE NEUT (AUTO) 12.5 10^3/uL (1.7-8.2); ARTERIAL BLOOD BASE EXCESS 2.9 mmol/L; ARTERIAL BLOOD H2CO3 1.36 mmol/L (1.05-1.35); ARTERIAL BLOOD O2 SATURATION 96.8 % (94-98); ARTERIAL BLOOD PCO2 45.3 mmHg (35-45); ARTERIAL BLOOD PH 7.41 (7.35-7.45); ARTERIAL BLOOD TOTAL CO2 29.4 mmol/L (21-25); EOSINOPHILS % (AUTO) 2.8 % (0-6); HEMATOCRIT 30.3 % (36.0-47.0); HEMOGLOBIN 9.6 g/dL (12.0-15.5); LYMPHOCYTES % (AUTO) 16.4 % (13-45); MEAN CORPUSCULAR HEMOGLOBIN 26.1 pg (27.0-33.4); MEAN CORPUSCULAR HGB CONC 31.7 g/dL (32.0-36.0); MEAN CORPUSCULAR VOLUME 82 fl (80-97); MONOCYTES % (AUTO) 10.3 % (3-13); PLATELET COUNT 423 10^3/uL (150-450); RED BLOOD COUNT 3.69 10^6/uL (3.72-5.28); RED CELL DISTRIBUTION WIDTH 18.4 % (11.5-14.0); SEGMENTED NEUTROPHILS % (AUTO) 69.5 % (42-78); TOTAL CELLS COUNTED % (AUTO) 100 %
[2018-02-15 05:00] LABS: ARTERIAL BLOOD FIO2 30%
[2018-02-15] MEDS ORDERED: NORMAL SALINE 1000 ML 1,000 ML IV PRN (05:00)
[2018-02-15] MEDS ORDERED: EPOETIN ALFA 10,000 UNIT in SYRINGE, DISPOSABLE, 1 EACH IV PRN (05:00)
[2018-02-15] MEDS: HEPARIN SOD (PORCINE) 5,000 UNIT/ML 1 ML SYRINGE SUBCUT SCH ×3 (05:07→21:14)
[2018-02-15] MEDS: METOCLOPRAMIDE HCL INJ/PF 10 MG/2 ML SDV IV SCH ×3 (05:07→21:14)
[2018-02-15] MEDS: METOPROLOL TARTRATE 25 MG TABLET NG SCH ×4 (05:07→23:17)
[2018-02-15 05:10] LABS: ANION GAP 15 (5-19); BLOOD UREA NITROGEN 46 mg/dL (7-20); CALCIUM 9.5 mg/dL (8.4-10.2); CARBON DIOXIDE 27 mmol/L (22-30); CHLORIDE 95 mmol/L (98-107); GLUCOSE 165 mg/dL (75-110); POTASSIUM 4.6 mmol/L (3.6-5.0); SODIUM 137.4 mmol/L (137-145)
[2018-02-15] MEDS: INSULIN LISPRO 100 UNIT/ML 3 ML VIAL SUBCUT PRN ×3 (06:02→18:03)
[2018-02-15 08:22] LABS: VANCOMYCIN,TROUGH 18.2 ug/mL (5.0-20.0)
[2018-02-15] MEDS: IPRATROPIUM/ALBUTEROL 0.5-2.5 MG/3 ML AMPUL NEB PRN ×2 (08:29→19:37)
[2018-02-15] MEDS: ACETYLCYSTEINE 20% SOLN 800 MG/4 ML VIAL.NEB NEB SCH ×2 (08:29→19:37)
--- NOTE | 2018-02-15 10:52 | PDOC PROGRESS REPORT ---
Subjective Progress Note for:: 02/15/18 Subjective:: I am seeing the patient on dialysis this morning. Every day she seems to be looking much better and more awake. She is still having this nausea. Blood pressures are holding during dialysis. Still awaiting bed from [facility]. Reason For Visit: PERSISTENT VOMITING ? DIABETES Physical Exam Vital Signs: Temp Pulse Resp BP Pulse Ox 97.3 F 84 24 H 124/61 93 02/15/18 08:00 02/15/18 08:30 02/15/18 09:37 02/15/18 09:37 02/15/18 09:37 Intake & Output 02/14/18 02/15/18 02/16/18 06:59 06:59 06:59 Intake Total 702 601 126 Output Total 5200 0 Balance -4498 601 126 Weight 104.6 kg 104.3 kg Vitals during dialysis: Blood pressure of 118/60, heart rate of 94, respiration of 23, oxygen saturation 92%, blood flow rate of 400 mL/min, and dialysate flow rate of 800 ml/minute using her AV fistula. Exam: General appearance: PRESENT: no acute distress, cooperative, well-developed, well-nourished Head exam: PRESENT: atraumatic, normocephalic Eye exam: PRESENT: conjunctiva pale, PERRLA. ABSENT: scleral icterus Neck exam: ABSENT: JVD Respiratory exam: PRESENT: Diminished breath sounds. ABSENT: crackles, rales, rhonchi, unlabored, wheezes Cardiovascular exam: PRESENT: Regular rate rhythm -+S1, +S2. ABSENT: diastolic murmur, systolic murmur GI/Abdominal exam: PRESENT: normal bowel sounds, soft. ABSENT: guarding, mass, tenderness Extremities exam: Mild trace bilateral lower extremity pitting edema Neurological exam: PRESENT: alert, awake, can communicate minimally. Skin exam: PRESENT: dry, warm, Cardiovascular exam: PRESENT: +S1, +S2, systolic murmur GI/Abdominal exam: PRESENT: rigid, tenderness Results Laboratory Results: 02/15/18 04:30 02/15/18 04:30 02/15/18 02/15/18 02/15/18 04:30 04:30 04:30 WBC 18.0 H RBC 3.69 L Hgb 9.6 L Hct 30.3 L MCV 82 MCH 26.1 L MCHC 31.7 L RDW 18.4 H Plt Count 423 Seg Neutrophils % 69.5 Lymphocytes % 16.4 Monocytes % 10.3 Eosinophils % 2.8 Basophils % 1.0 Absolute Neutrophils 12.5 H Absolute Lymphocytes 3.0 Absolute Monocytes 1.9 H Absolute Eosinophils 0.5 Absolute Basophils 0.2 Carbonic Acid 1.36 H HCO3/H2CO3 Ratio 20:1 ABG pH 7.41 ABG pCO2 45.3 H ABG pO2 89.0 ABG HCO3 28.0 H ABG O2 Saturation 96.8 ABG Base Excess 2.9 FiO2 30% Sodium 137.4 Potassium 4.6 Chloride 95 L Carbon Dioxide 27 Anion Gap 15 BUN 46 H Creatinine 6.95 H Est GFR ( Amer) 7 L Est GFR (Non-Af Amer) 6 L Glucose 165 H Calcium 9.5 01/30/18 01/30/18 01/30/18 22:08 22:08 22:08 Creatine Kinase 48 CK-MB (CK-2) 0.76 Troponin I 0.054 NT-Pro-B Natriuret Pep 29170 H 01/31/18 01/31/18 01/31/18 04:27 04:27 13:17 Creatine Kinase 47 72 CK-MB (CK-2) 0.96 Troponin I 0.068 NT-Pro-B Natriuret Pep 01/31/18 01/31/18 01/31/18 13:17 18:20 18:20 Creatine Kinase 58 CK-MB (CK-2) 1.53 1.59 Troponin I 0.079 0.081 NT-Pro-B Natriuret Pep 02/07/18 02/07/18 02/08/18 19:00 19:00 04:20 Creatine Kinase 376 H 348 H CK-MB (CK-2) 1.20 Troponin I 0.110 NT-Pro-B Natriuret Pep 02/08/18 02/08/18 02/08/18 04:20 08:47 11:45 Creatine Kinase 296 H CK-MB (CK-2) 1.20 1.10 Troponin I 0.811 1.090 NT-Pro-B Natriuret Pep Impressions: Gastric Emptying Nuclear Medicine 01/30/18 00:00 IMPRESSION: No emptying of the administered activity from the stomach over 2 hours. KUB X-Ray 02/02/18 11:00 IMPRESSION: THE TIP OF THE NASOGASTRIC TUBE IN THE STOMACH. Abdomen Ultrasound 02/03/18 00:00 IMPRESSION: Post cholecystectomy. Otherwise unremarkable study Abdomen/Pelvis CT 02/03/18 07:00 IMPRESSION: Small bowel obstruction with transition point in the midline pelvis. Head CT 02/08/18 00:00 IMPRESSION: No significant change. Chronic white matter changes. Focal encephalomalacia medial left occipital lobe EVIDENCE OF ACUTE STROKE: NO. Chest X-Ray 02/14/18 06:00 IMPRESSION: Interval extubation. Assessment & Plan - Diagnosis (1) End stage chronic kidney disease Is this a current diagnosis for this admission?: Yes Plan: We will do dialysis today for 3.5 hours, using the patient's AV fistula, with 2 potassium bath, blood flow rate of 400 mL per minute, dialysate flow rate of 8 mL per minute, ultrafiltration 4-5 L as tolerated, no heparin and Procrit with 10,000 units during dialysis intravenously. Patient is being monitored very closely by our dialysis nurse and treatment adjusted accordingly. (2) Anemia in chronic kidney disease Qualifiers: Chronic kidney disease stage: stage 3 (moderate) Qualified Code(s): N18.3 - Chronic kidney disease, stage 3 (moderate); D63.1 - Anemia in chronic kidney disease; D63.1 - Anemia in chronic kidney disease Is this a current diagnosis for this admission?: Yes Plan: We will give Procrit 10,000 units during dialysis IV. (3) Hypotension Is this a current diagnosis for this admission?: Yes Plan: So far blood pressure is acceptable during dialysis. (4) Acute respiratory failure with hypoxia Is this a current diagnosis for this admission?: Yes Plan: Improving currently just on nasal cannula. (5) Diabetic gastroparesis Is this a current diagnosis for this admission?: Yes Plan: Recommend to decrease Reglan to 5 mg IV every 8 hours in view of ESRD. (6) Abnormal liver function tests Is this a current diagnosis for this admission?: Yes (7) Small bowel obstruction Is this a current diagnosis for this admission?: Yes Plan: Status post exploratory laparotomy, lysis of adhesions, and reduction of incarcerated hernia. Surgery following. (8) Type 2 diabetes mellitus Qualifiers: Diabetes mellitus oil heaterman insulin use: with oil heaterman use Diabetes mellitus complication status: with kidney complications Diabetes mellitus complication detail: with chronic kidney disease Chronic kidney disease stage: on chronic dialysis Qualified Code(s): E11.22 - Type 2 diabetes mellitus with diabetic chronic kidney disease; N18.6 - End stage renal disease; Z79.4 - jail (current) use of insulin; Z99.2 - Dependence on renal dialysis Is this a current diagnosis for this admission?: Yes - Time Time with patient: 15-25 minutes
[2018-02-15] MEDS: GUAIFENESIN SYRP 200 MG/10 ML UDC PO SCH ×4 (10:56→21:14)
--- NOTE | 2018-02-15 10:56 | PDOC PROGRESS REPORT ---
Subjective Progress Note for:: 02/13/18 Subjective:: x Reason For Visit: PERSISTENT VOMITING ? DIABETES Physical Exam Vital Signs: Temp Pulse Resp BP Pulse Ox 98.1 F 92 29 H 132/65 H 93 02/13/18 14:00 02/13/18 14:23 02/13/18 14:22 02/13/18 14:23 02/13/18 14:23 Intake & Output 02/12/18 02/13/18 02/14/18 06:59 06:59 06:59 Intake Total 330 852 Output Total 0 100 5200 Balance 330 752 -5200 Weight 107.9 kg 108.9 kg General appearance: PRESENT: no acute distress, disheveled, morbidly obese Head exam: PRESENT: atraumatic, normocephalic Eye exam: PRESENT: conjunctiva pale, EOMI. ABSENT: nystagmus, scleral icterus Mouth exam: PRESENT: dry mucosa, neck supple, tongue midline Neck exam: ABSENT: carotid bruit, JVD, lymphadenopathy, thyromegaly, tracheal deviation, tracheostomy Respiratory exam: PRESENT: decreased breath sounds, prolonged expiratory phas, rales, rhonchi, symmetrical, unlabored. ABSENT: retraction, stridor, tachypnea Cardiovascular exam: PRESENT: irregular rhythm Pulses: PRESENT: normal radial pulses GI/Abdominal exam: PRESENT: soft. ABSENT: tenderness Extremities exam: PRESENT: pedal edema. ABSENT: calf tenderness, clubbing, joint swelling Musculoskeletal exam: ABSENT: deformity, dislocation Neurological exam: PRESENT: altered, awake Skin exam: PRESENT: dry, warm Results Laboratory Results: 02/13/18 05:48 02/13/18 05:48 02/13/18 02/13/18 02/13/18 05:48 05:48 06:37 WBC 17.2 H RBC 3.60 L Hgb 9.5 L Hct 29.6 L MCV 82 MCH 26.5 L MCHC 32.2 RDW 18.2 H Plt Count 238 Seg Neutrophils % 67.9 Lymphocytes % 14.9 Monocytes % 11.7 Eosinophils % 4.2 Basophils % 1.3 Absolute Neutrophils 11.7 H Absolute Lymphocytes 2.6 Absolute Monocytes 2.0 H Absolute Eosinophils 0.7 H Absolute Basophils 0.2 Carbonic Acid 1.45 H HCO3/H2CO3 Ratio 18:1 ABG pH 7.37 ABG pCO2 48.2 H ABG pO2 78.8 L ABG HCO3 27.2 H ABG O2 Saturation 95.2 ABG Base Excess 1.5 FiO2 30% Sodium 135.4 L Potassium 5.9 H Chloride 95 L Carbon Dioxide 26 Anion Gap 14 BUN 56 H Creatinine 7.43 H Est GFR ( Amer) 7 L Est GFR (Non-Af Amer) 6 L Glucose 199 H Calcium 9.4 Magnesium 2.1 Total Bilirubin 1.5 H AST 62 H ALT 50 Alkaline Phosphatase 338 H Total Protein 6.0 L Albumin 2.9 L Lipase 169.5 02/07/18 19:39 Blood Blood Culture - Final NO GROWTH IN 5 DAYS 02/07/18 19:50 Blood Blood Culture - Final NO GROWTH IN 5 DAYS 01/30/18 01/30/18 01/30/18 22:08 22:08 22:08 Creatine Kinase 48 CK-MB (CK-2) 0.76 Troponin I 0.054 NT-Pro-B Natriuret Pep 14457 H 01/31/18 01/31/18 01/31/18 04:27 04:27 13:17 Creatine Kinase 47 72 CK-MB (CK-2) 0.96 Troponin I 0.068 NT-Pro-B Natriuret Pep 01/31/18 01/31/18 01/31/18 13:17 18:20 18:20 Creatine Kinase 58 CK-MB (CK-2) 1.53 1.59 Troponin I 0.079 0.081 NT-Pro-B Natriuret Pep 02/07/18 02/07/18 02/08/18 19:00 19:00 04:20 Creatine Kinase 376 H 348 H CK-MB (CK-2) 1.20 Troponin I 0.110 NT-Pro-B Natriuret Pep 02/08/18 02/08/18 02/08/18 04:20 08:47 11:45 Creatine Kinase 296 H CK-MB (CK-2) 1.20 1.10 Troponin I 0.811 1.090 NT-Pro-B Natriuret Pep Impressions: Gastric Emptying Nuclear Medicine 01/30/18 00:00 IMPRESSION: No emptying of the administered activity from the stomach over 2 hours. KUB X-Ray 02/02/18 11:00 IMPRESSION: THE TIP OF THE NASOGASTRIC TUBE IN THE STOMACH. Abdomen Ultrasound 02/03/18 00:00 IMPRESSION: Post cholecystectomy. Otherwise unremarkable study Abdomen/Pelvis CT 02/03/18 07:00 IMPRESSION: Small bowel obstruction with transition point in the midline pelvis. Head CT 02/08/18 00:00 IMPRESSION: No significant change. Chronic white matter changes. Focal encephalomalacia medial left occipital lobe EVIDENCE OF ACUTE STROKE: NO. Chest X-Ray 02/11/18 06:00 IMPRESSION: Improvement in pulmonary vascular congestion. Other findings are stable copyright 2011 [employer]- All Rights Reserved Assessment & Plan - Diagnosis (1) End stage chronic kidney disease Is this a current diagnosis for this admission?: Yes Plan: Hemodialysis Tuesday and Tuesday (2) Acute pulmonary edema Is this a current diagnosis for this admission?: Yes Plan: Volume overload (3) CHF (congestive heart failure) Is this a current diagnosis for this admission?: Yes Plan: Hypertensive cardiomegaly renal failure (4) Sleep apnea Qualifiers: Sleep apnea type: obstructive Qualified Code(s): G47.33 - Obstructive sleep apnea (adult) (pediatric) Is this a current diagnosis for this admission?: Yes Plan: Poor compliance with noninvasive positive pressure ventilation as per family (5) Type 2 diabetes mellitus Qualifiers: Diabetes mellitus assisted insulin use: with assisted use Diabetes mellitus complication status: with kidney complications Diabetes mellitus complication detail: with chronic kidney disease Chronic kidney disease stage: on chronic dialysis Qualified Code(s): E11.22 - Type 2 diabetes mellitus with diabetic chronic kidney disease; N18.6 - End stage renal disease; Z79.4 - [facility] (current) use of insulin; Z99.2 - Dependence on renal dialysis Is this a current diagnosis for this admission?: Yes Plan: Poor compliance - Time Total Critical Time (Minutes): 45
--- NOTE | 2018-02-15 10:59 | PDOC PROGRESS REPORT ---
Subjective Progress Note for:: 02/14/18 Subjective:: Unchanged Reason For Visit: PERSISTENT VOMITING ? DIABETES Physical Exam Vital Signs: Temp Pulse Resp BP Pulse Ox 98.3 F 94 26 H 122/57 L 100 02/14/18 10:00 02/14/18 10:00 02/14/18 10:22 02/14/18 10:22 02/14/18 10:22 Intake & Output 02/13/18 02/14/18 02/15/18 06:59 06:59 06:59 Intake Total 852 702 131 Output Total 100 5200 Balance 752 -1308 131 Weight 108.9 kg 104.6 kg General appearance: PRESENT: no acute distress, disheveled Head exam: PRESENT: atraumatic, normocephalic Eye exam: PRESENT: conjunctiva pale, EOMI. ABSENT: nystagmus, scleral icterus Mouth exam: PRESENT: dry mucosa, neck supple, tongue midline Neck exam: ABSENT: carotid bruit, JVD, lymphadenopathy, thyromegaly, tracheal deviation, tracheostomy Respiratory exam: PRESENT: decreased breath sounds, prolonged expiratory phas, rales, rhonchi, unlabored. ABSENT: retraction, stridor Cardiovascular exam: PRESENT: RRR, +S1, +S2 Pulses: PRESENT: normal radial pulses GI/Abdominal exam: PRESENT: soft. ABSENT: tenderness Gentrourinary exam: PRESENT: indwelling catheter Extremities exam: PRESENT: pedal edema. ABSENT: calf tenderness, clubbing, joint swelling Musculoskeletal exam: ABSENT: ambulatory, deformity, dislocation Neurological exam: PRESENT: altered, awake Skin exam: PRESENT: dry, warm Results Laboratory Results: 02/14/18 04:45 02/14/18 04:45 02/14/18 02/14/18 02/14/18 04:45 04:45 04:45 WBC 15.8 H RBC 3.79 Hgb 9.9 L Hct 31.0 L MCV 82 MCH 26.1 L MCHC 31.9 L RDW 18.3 H Plt Count 390 Seg Neutrophils % Not Reportable Lymphocytes % Not Reportable Monocytes % Not Reportable Eosinophils % Not Reportable Basophils % Not Reportable Absolute Neutrophils Not Reportable Absolute Lymphocytes Not Reportable Absolute Monocytes Not Reportable Absolute Eosinophils Not Reportable Absolute Basophils Not Reportable Carbonic Acid 1.40 H HCO3/H2CO3 Ratio 20:1 ABG pH 7.41 ABG pCO2 46.4 H ABG pO2 77.9 L ABG HCO3 28.4 H ABG O2 Saturation 95.5 ABG Base Excess 3.2 FiO2 30% Sodium 138.4 Potassium 4.4 D Chloride 96 L Carbon Dioxide 29 Anion Gap 13 BUN 36 H D Creatinine 5.54 H Est GFR ( Amer) 9 L Est GFR (Non-Af Amer) 8 L Glucose 165 H Calcium 9.2 Magnesium 2.2 Total Bilirubin 1.4 H AST 72 H ALT 46 Alkaline Phosphatase 335 H Total Protein 6.2 L Albumin 2.9 L 02/09/18 13:00 Tracheal Aspirate Gram Stain - Final 02/09/18 13:00 Tracheal Aspirate Sputum Culture - Final Proteus Mirabilis C.albicans/C.dubliniensis Reduced Normal Jennifer 01/30/18 01/30/18 01/30/18 22:08 22:08 22:08 Creatine Kinase 48 CK-MB (CK-2) 0.76 Troponin I 0.054 NT-Pro-B Natriuret Pep 41918 H 01/31/18 01/31/18 01/31/18 04:27 04:27 13:17 Creatine Kinase 47 72 CK-MB (CK-2) 0.96 Troponin I 0.068 NT-Pro-B Natriuret Pep 01/31/18 01/31/18 01/31/18 13:17 18:20 18:20 Creatine Kinase 58 CK-MB (CK-2) 1.53 1.59 Troponin I 0.079 0.081 NT-Pro-B Natriuret Pep 02/07/18 02/07/18 02/08/18 19:00 19:00 04:20 Creatine Kinase 376 H 348 H CK-MB (CK-2) 1.20 Troponin I 0.110 NT-Pro-B Natriuret Pep 02/08/18 02/08/18 02/08/18 04:20 08:47 11:45 Creatine Kinase 296 H CK-MB (CK-2) 1.20 1.10 Troponin I 0.811 1.090 NT-Pro-B Natriuret Pep Impressions: Gastric Emptying Nuclear Medicine 01/30/18 00:00 IMPRESSION: No emptying of the administered activity from the stomach over 2 h ours. KUB X-Ray 02/02/18 11:00 IMPRESSION: THE TIP OF THE NASOGASTRIC TUBE IN THE STOMACH. Abdomen Ultrasound 02/03/18 00:00 IMPRESSION: Post cholecystectomy. Otherwise unremarkable study Abdomen/Pelvis CT 02/03/18 07:00 IMPRESSION: Small bowel obstruction with transition point in the midline pelvis. Head CT 02/08/18 00:00 IMPRESSION: No significant change. Chronic white matter changes. Focal encephalomalacia medial left occipital lobe EVIDENCE OF ACUTE STROKE: NO. Chest X-Ray 02/14/18 06:00 IMPRESSION: Interval extubation. Assessment & Plan - Diagnosis (1) End stage chronic kidney disease Is this a current diagnosis for this admission?: Yes Plan: Hemodialysis Tuesday and Tuesday (2) Acute pulmonary edema Is this a current diagnosis for this admission?: Yes Plan: Volume overload (3) CHF (congestive heart failure) Is this a current diagnosis for this admission?: Yes Plan: Hypertensive cardiomegaly renal failure (4) Sleep apnea Qualifiers: Sleep apnea type: obstructive Qualified Code(s): G47.33 - Obstructive sleep apnea (adult) (pediatric) Is this a current diagnosis for this admission?: Yes Plan: Poor compliance with noninvasive positive pressure ventilation as per family (5) Type 2 diabetes mellitus Qualifiers: Diabetes mellitus [facility] insulin use: with solar energy sales specialist use Diabetes mellitus complication status: with kidney complications Diabetes mellitus complication detail: with chronic kidney disease Chronic kidney disease stage: on chronic dialysis Qualified Code(s): E11.22 - Type 2 diabetes mellitus with diabetic chronic kidney disease; N18.6 - End stage renal disease; Z79.4 - cathode maker (current) use of insulin; Z99.2 - Dependence on renal dialysis Is this a current diagnosis for this admission?: Yes Plan: Poor compliance (6) Internal hernia Is this a current diagnosis for this admission?: Yes Plan: As per surgery (7) Intra-abdominal adhesions Is this a current diagnosis for this admission?: Yes Plan: As per surgery - Time Total Critical Time (Minutes): 45
--- NOTE | 2018-02-15 11:01 | PDOC PROGRESS REPORT ---
Subjective Progress Note for:: 02/15/18 Subjective:: Patient is still lethargic but does mouth words to answer questions. Nasogastric tube still in place. Currently on nasal cannula oxygen. Reason For Visit: PERSISTENT VOMITING ? DIABETES Physical Exam Vital Signs: Temp Pulse Resp BP Pulse Ox 97.3 F 84 24 H 124/61 93 02/15/18 08:00 02/15/18 08:30 02/15/18 09:37 02/15/18 09:37 02/15/18 09:37 Intake & Output 02/14/18 02/15/18 02/16/18 06:59 06:59 06:59 Intake Total 702 601 126 Output Total 5200 0 Balance -4498 601 126 Weight 104.6 kg 104.3 kg General appearance: PRESENT: no acute distress, morbidly obese - BMI 39.5, well- developed Exam: Currently on hemodialysis. Head exam: PRESENT: normocephalic Eye exam: PRESENT: conjunctiva pale. ABSENT: scleral icterus Ear exam: PRESENT: normal external ear exam Mouth exam: PRESENT: moist Respiratory exam: PRESENT: clear to auscultation [facility] - Anteriorly, symmetrical. ABSENT: rales, rhonchi, stridor, wheezes Cardiovascular exam: PRESENT: RRR, +S1, +S2 Pulses: PRESENT: other - Diminished radial and dorsalis pedis pulses GI/Abdominal exam: PRESENT: diminished bowel sounds, soft, tenderness - Near incision Rectal exam: PRESENT: deferred Extremities exam: ABSENT: pedal edema Neurological exam: PRESENT: awake, oriented to person, oriented to place - Appears to be oriented to person and place. ABSENT: alert - Still slightly lethargic Psychiatric exam: PRESENT: flat affect. ABSENT: agitated, anxious Focused psych exam: ABSENT: restlessness Results Laboratory Results: 02/15/18 04:30 02/15/18 04:30 02/15/18 02/15/18 02/15/18 04:30 04:30 04:30 WBC 18.0 H RBC 3.69 L Hgb 9.6 L Hct 30.3 L MCV 82 MCH 26.1 L MCHC 31.7 L RDW 18.4 H Plt Count 423 Seg Neutrophils % 69.5 Lymphocytes % 16.4 Monocytes % 10.3 Eosinophils % 2.8 Basophils % 1.0 Absolute Neutrophils 12.5 H Absolute Lymphocytes 3.0 Absolute Monocytes 1.9 H Absolute Eosinophils 0.5 Absolute Basophils 0.2 Carbonic Acid 1.36 H HCO3/H2CO3 Ratio 20:1 ABG pH 7.41 ABG pCO2 45.3 H ABG pO2 89.0 ABG HCO3 28.0 H ABG O2 Saturation 96.8 ABG Base Excess 2.9 FiO2 30% Sodium 137.4 Potassium 4.6 Chloride 95 L Carbon Dioxide 27 Anion Gap 15 BUN 46 H Creatinine 6.95 H Est GFR ( Amer) 7 L Est GFR (Non-Af Amer) 6 L Glucose 165 H Calcium 9.5 01/30/18 01/30/18 01/30/18 22:08 22:08 22:08 Creatine Kinase 48 CK-MB (CK-2) 0.76 Troponin I 0.054 NT-Pro-B Natriuret Pep 42475 H 01/31/18 01/31/18 01/31/18 04:27 04:27 13:17 Creatine Kinase 47 72 CK-MB (CK-2) 0.96 Troponin I 0.068 NT-Pro-B Natriuret Pep 01/31/18 01/31/18 01/31/18 13:17 18:20 18:20 Creatine Kinase 58 CK-MB (CK-2) 1.53 1.59 Troponin I 0.079 0.081 NT-Pro-B Natriuret Pep 02/07/18 02/07/18 02/08/18 19:00 19:00 04:20 Creatine Kinase 376 H 348 H CK-MB (CK-2) 1.20 Troponin I 0.110 NT-Pro-B Natriuret Pep 02/08/18 02/08/18 02/08/18 04:20 08:47 11:45 Creatine Kinase 296 H CK-MB (CK-2) 1.20 1.10 Troponin I 0.811 1.090 NT-Pro-B Natriuret Pep Impressions: Gastric Emptying Nuclear Medicine 01/30/18 00:00 IMPRESSION: No emptying of the administered activity from the stomach over 2 hours. KUB X-Ray 02/02/18 11:00 IMPRESSION: THE TIP OF THE NASOGASTRIC TUBE IN THE STOMACH. Abdomen Ultrasound 02/03/18 00:00 IMPRESSION: Post cholecystectomy. Otherwise unremarkable study Abdomen/Pelvis CT 02/03/18 07:00 IMPRESSION: Small bowel obstruction with transition point in the midline pelvis. Head CT 02/08/18 00:00 IMPRESSION: No significant change. Chronic white matter changes. Focal encephalomalacia medial left occipital lobe EVIDENCE OF ACUTE STROKE: NO. Chest X-Ray 02/14/18 06:00 IMPRESSION: Interval extubation. Assessment & Plan - Diagnosis (1) Acute respiratory failure with hypoxia Is this a current diagnosis for this admission?: Yes Plan: Likely combination of infection and failure. Currently off of BiPAP and on nasal cannula. (2) End stage chronic kidney disease Is this a current diagnosis for this admission?: Yes Plan: Currently on hemodialysis. The goal is to try and remove 4-5 L again today. The patient is an uric. (3) Abnormal liver function tests Is this a current diagnosis for this admission?: Yes Plan: Improving. Continue to monitor. 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 Accu-Cheks still slightly higher than desired. I will add low-dose Lantus 4 units at at bedtime (5) Diabetic gastroparesis Is this a current diagnosis for this admission?: Yes Plan: Tolerating tube feeds at 20 mils an hour. We will increase with a goal of at least 40. She is having bowel movements. (6) Hypotension Is this a current diagnosis for this admission?: Yes Plan: Currently off of vasopressor therapy. We will see how her blood pressure holds up during dialysis. (7) Intra-abdominal adhesions Is this a current diagnosis for this admission?: Yes Plan: As per surgery (8) Morbid obesity with BMI of 40.0-44.9, adult Is this a current diagnosis for this admission?: Yes Plan: No acute intervention at this time (9) Leukocytosis Qualifiers: Qualified Code(s): D72.829 - Elevated white blood cell count, unspecified Is this a current diagnosis for this admission?: Yes Plan: Unfortunately her white blood cell count is back up to 18,000. There is no obvious source of infection. It is increased despite being on antibiotic therapy. I am going to discontinue her antibiotics and monitor at this time. - Time Time Spent with patient: 25-34 minutes Medications reviewed and adjusted accordingly: Yes
--- NOTE | 2018-02-15 11:01 | PDOC PROGRESS REPORT ---
Subjective Progress Note for:: 02/15/18 Subjective:: Unchanged Reason For Visit: PERSISTENT VOMITING ? DIABETES Physical Exam Vital Signs: Temp Pulse Resp BP Pulse Ox 97.3 F 84 25 H 111/62 100 02/15/18 08:00 02/15/18 08:30 02/15/18 08:30 02/15/18 08:28 02/15/18 08:30 Intake & Output 02/14/18 02/15/18 02/16/18 06:59 06:59 06:59 Intake Total 702 601 Output Total 5200 0 Balance -4498 601 Weight 104.6 kg 104.3 kg General appearance: PRESENT: no acute distress, cooperative, disheveled, morbidly obese Head exam: PRESENT: atraumatic, normocephalic Eye exam: PRESENT: conjunctiva pale, EOMI. ABSENT: nystagmus, scleral icterus Mouth exam: PRESENT: dry mucosa, neck supple, tongue midline Neck exam: ABSENT: carotid bruit, JVD, lymphadenopathy, thyromegaly, tracheal deviation, tracheostomy Respiratory exam: PRESENT: decreased breath sounds, prolonged expiratory phas, rales, rhonchi, unlabored. ABSENT: retraction, stridor, tachypnea Cardiovascular exam: PRESENT: RRR, +S1, +S2 Pulses: PRESENT: normal radial pulses GI/Abdominal exam: PRESENT: soft Gentrourinary exam: PRESENT: indwelling catheter Extremities exam: PRESENT: pedal edema. ABSENT: clubbing, joint swelling Musculoskeletal exam: ABSENT: deformity, dislocation Neurological exam: PRESENT: altered, awake Skin exam: PRESENT: dry, warm Results Laboratory Results: 02/15/18 04:30 02/15/18 04:30 02/15/18 02/15/18 02/15/18 04:30 04:30 04:30 WBC 18.0 H RBC 3.69 L Hgb 9.6 L Hct 30.3 L MCV 82 MCH 26.1 L MCHC 31.7 L RDW 18.4 H Plt Count 423 Seg Neutrophils % 69.5 Lymphocytes % 16.4 Monocytes % 10.3 Eosinophils % 2.8 Basophils % 1.0 Absolute Neutrophils 12.5 H Absolute Lymphocytes 3.0 Absolute Monocytes 1.9 H Absolute Eosinophils 0.5 Absolute Basophils 0.2 Carbonic Acid 1.36 H HCO3/H2CO3 Ratio 20:1 ABG pH 7.41 ABG pCO2 45.3 H ABG pO2 89.0 ABG HCO3 28.0 H ABG O2 Saturation 96.8 ABG Base Excess 2.9 FiO2 30% Sodium 137.4 Potassium 4.6 Chloride 95 L Carbon Dioxide 27 Anion Gap 15 BUN 46 H Creatinine 6.95 H Est GFR ( Amer) 7 L Est GFR (Non-Af Amer) 6 L Glucose 165 H Calcium 9.5 01/30/18 01/30/18 01/30/18 22:08 22:08 22:08 Creatine Kinase 48 CK-MB (CK-2) 0.76 Troponin I 0.054 NT-Pro-B Natriuret Pep 42285 H 01/31/18 01/31/18 01/31/18 04:27 04:27 13:17 Creatine Kinase 47 72 CK-MB (CK-2) 0.96 Troponin I 0.068 NT-Pro-B Natriuret Pep 01/31/18 01/31/18 01/31/18 13:17 18:20 18:20 Creatine Kinase 58 CK-MB (CK-2) 1.53 1.59 Troponin I 0.079 0.081 NT-Pro-B Natriuret Pep 02/07/18 02/07/18 02/08/18 19:00 19:00 04:20 Creatine Kinase 376 H 348 H CK-MB (CK-2) 1.20 Troponin I 0.110 NT-Pro-B Natriuret Pep 02/08/18 02/08/18 02/08/18 04:20 08:47 11:45 Creatine Kinase 296 H CK-MB (CK-2) 1.20 1.10 Troponin I 0.811 1.090 NT-Pro-B Natriuret Pep Impressions: Gastric Emptying Nuclear Medicine 01/30/18 00:00 IMPRESSION: No emptying of the administered activity from the stomach over 2 hours. KUB X-Ray 02/02/18 11:00 IMPRESSION: THE TIP OF THE NASOGASTRIC TUBE IN THE STOMACH. Abdomen Ultrasound 02/03/18 00:00 IMPRESSION: Post cholecystectomy. Otherwise unremarkable study Abdomen/Pelvis CT 02/03/18 07:00 IMPRESSION: Small bowel obstruction with transition point in the midline pelvis. Head CT 02/08/18 00:00 IMPRESSION: No significant change. Chronic white matter changes. Focal encephalomalacia medial left occipital lobe EVIDENCE OF ACUTE STROKE: NO. Chest X-Ray 02/14/18 06:00 IMPRESSION: Interval extubation. Assessment & Plan - Diagnosis (1) End stage chronic kidney disease Is this a current diagnosis for this admission?: Yes Plan: Hemodialysis Tuesday and Tuesday (2) Acute pulmonary edema Is this a current diagnosis for this admission?: Yes Plan: Volume overload (3) CHF (congestive heart failure) Is this a current diagnosis for this admission?: Yes Plan: Hypertensive cardiomegaly renal failure (4) Sleep apnea Qualifiers: Sleep apnea type: obstructive Qualified Code(s): G47.33 - Obstructive sleep apnea (adult) (pediatric) Is this a current diagnosis for this admission?: Yes Plan: Poor compliance with noninvasive positive pressure ventilation as per family (5) Type 2 diabetes mellitus Qualifiers: Diabetes mellitus assisted insulin use: with assisted use Diabetes mellitus complication status: with kidney complications Diabetes mellitus complication detail: with chronic kidney disease Chronic kidney disease stage: on chronic dialysis Qualified Code(s): E11.22 - Type 2 diabetes mellitus with diabetic chronic kidney disease; N18.6 - End stage renal disease; Z79.4 - [facility] (current) use of insulin; Z99.2 - Dependence on renal dialysis Is this a current diagnosis for this admission?: Yes Plan: Poor compliance (6) Internal hernia Is this a current diagnosis for this admission?: Yes Plan: As per surgery (7) Intra-abdominal adhesions Is this a current diagnosis for this admission?: Yes Plan: As per surgery - Time Total Critical Time (Minutes): 40
[2018-02-15] MEDS ORDERED: VANCOMYCIN HCL 500 MG in DEXTROSE 5%-WATER 100 ML IV SCH (18:00)
[2018-02-15] MEDS: OLANZAPINE 2.5 MG TABLET PO SCH (21:15)
[2018-02-15] MEDS: FAMOTIDINE 20 MG TABLET NG SCH (21:15)
[2018-02-15] MEDS ORDERED: CEFEPIME HCL 0.5 GM in DEXTROSE 5%-WATER 50 ML IV SCH (22:00)
[2018-02-15] MEDS ORDERED: INSULIN GLARGINE,HUM.REC.ANLOG 300 UNIT/3 ML INSULN.PEN SUBCUT SCH (22:00)
[2018-02-16] MEDS: INSULIN LISPRO 100 UNIT/ML 3 ML VIAL SUBCUT PRN ×4 (00:12→18:50)
[2018-02-16 04:56] LABS: HEMATOCRIT 30.3 % (36.0-47.0); HEMOGLOBIN 9.7 g/dL (12.0-15.5); MEAN CORPUSCULAR HEMOGLOBIN 26.4 pg (27.0-33.4); MEAN CORPUSCULAR VOLUME 83 fl (80-97); PLATELET COUNT 384 10^3/uL (150-450); RED BLOOD COUNT 3.67 10^6/uL (3.72-5.28); RED CELL DISTRIBUTION WIDTH 18.3 % (11.5-14.0); WHITE BLOOD COUNT 14.4 10^3/uL (4.0-10.5)
[2018-02-16] MEDS: METOPROLOL TARTRATE 25 MG TABLET NG SCH ×4 (05:12→23:12)
[2018-02-16] MEDS: HEPARIN SOD (PORCINE) 5,000 UNIT/ML 1 ML SYRINGE SUBCUT SCH ×3 (05:12→22:18)
[2018-02-16] MEDS: METOCLOPRAMIDE HCL INJ/PF 10 MG/2 ML SDV IV SCH ×3 (05:14→22:18)
[2018-02-16 05:21] LABS: ALANINE AMINOTRANSFERASE 28 U/L (9-52); ALKALINE PHOSPHATASE 290 U/L (38-126); ANION GAP 13 (5-19); ASPARTATE AMINO TRANSFERASE 29 U/L (14-36); BILIRUBIN,DIRECT 1.2 mg/dL (0.0-0.4); BILIRUBIN,TOTAL 1.2 mg/dL (0.2-1.3); BLOOD UREA NITROGEN 28 mg/dL (7-20); CALCIUM 9.4 mg/dL (8.4-10.2); CARBON DIOXIDE 29 mmol/L (22-30); CHLORIDE 97 mmol/L (98-107); GLUCOSE 189 mg/dL (75-110); PHOSPHORUS 5.8 mg/dL (2.5-4.5); POTASSIUM 3.9 mmol/L (3.6-5.0); SODIUM 138.7 mmol/L (137-145); TOTAL PROTEIN 6.2 g/dL (6.3-8.2)
[2018-02-16] MEDS: GUAIFENESIN SYRP 200 MG/10 ML UDC PO SCH ×4 (11:00→22:18)
[2018-02-16 13:16] LABS: ARTERIAL BLOOD BASE EXCESS 2.6 mmol/L; ARTERIAL BLOOD FIO2 30%; ARTERIAL BLOOD H2CO3 1.56 mmol/L (1.05-1.35); ARTERIAL BLOOD HCO3 28.7 mmol/L (20-24); ARTERIAL BLOOD O2 SATURATION 96.2 % (94-98); ARTERIAL BLOOD PCO2 51.9 mmHg (35-45); ARTERIAL BLOOD PH 7.36 (7.35-7.45); ARTERIAL BLOOD PO2 87.3 mmHg (80-100); ARTERIAL BLOOD TOTAL CO2 30.3 mmol/L (21-25)
--- NOTE | 2018-02-16 20:16 | PDOC PROGRESS REPORT ---
Subjective Progress Note for:: 02/16/18 Subjective:: She was more lethargic. Blood gas revealed increased PCO2. A friend is visiting at the bedside. Reason For Visit: PERSISTENT VOMITING ? DIABETES Physical Exam Vital Signs: Temp Pulse Resp BP Pulse Ox 98.5 F 81 13 103/51 L 95 02/16/18 19:31 02/16/18 18:00 02/16/18 18:24 02/16/18 18:24 02/16/18 18:24 Intake & Output 02/15/18 02/16/18 02/17/18 06:59 06:59 06:59 Intake Total 601 789.5 726 Output Total 0 4500 0 Balance 601 -3710.5 726 Weight 104.3 kg 99.7 kg General appearance: PRESENT: no acute distress, other - BiPAP in place Head exam: PRESENT: normocephalic Neck exam: ABSENT: carotid bruit, lymphadenopathy Respiratory exam: PRESENT: decreased breath sounds, rales - Bilateral bases, other - Limited inspiratory phase. ABSENT: rhonchi, wheezes Cardiovascular exam: PRESENT: RRR, +S1, +S2, systolic murmur GI/Abdominal exam: PRESENT: diminished bowel sounds, soft. ABSENT: tenderness Gentrourinary exam: PRESENT: indwelling catheter Extremities exam: PRESENT: pedal edema Neurological exam: PRESENT: other - Minimal interaction. Limited response to verbal stimulus.. ABSENT: alert Psychiatric exam: PRESENT: flat affect. ABSENT: agitated Focused psych exam: ABSENT: restlessness Results Laboratory Results: 02/16/18 04:30 02/16/18 04:30 02/16/18 02/16/18 02/16/18 04:30 04:30 04:30 WBC 14.4 H RBC 3.67 L Hgb 9.7 L Hct 30.3 L MCV 83 MCH 26.4 L MCHC 32.0 RDW 18.3 H Plt Count 384 Carbonic Acid HCO3/H2CO3 Ratio ABG pH ABG pCO2 ABG pO2 ABG HCO3 ABG O2 Saturation ABG Base Excess FiO2 Sodium 138.7 Potassium 3.9 Chloride 97 L Carbon Dioxide 29 Anion Gap 13 BUN 28 H Creatinine 5.10 H Est GFR ( Amer) 10 L Est GFR (Non-Af Amer) 9 L Glucose 189 H Calcium 9.4 Phosphorus 5.8 H Magnesium 2.2 Total Bilirubin 1.2 AST 29 ALT 28 Alkaline Phosphatase 290 H Ammonia < 8.7 L Total Protein 6.2 L Albumin 3.0 L 02/16/18 13:00 WBC RBC Hgb Hct MCV MCH MCHC RDW Plt Count Carbonic Acid 1.56 H HCO3/H2CO3 Ratio 18:1 ABG pH 7.36 ABG pCO2 51.9 H ABG pO2 87.3 ABG HCO3 28.7 H ABG O2 Saturation 96.2 ABG Base Excess 2.6 FiO2 30% Sodium Potassium Chloride Carbon Dioxide Anion Gap BUN Creatinine Est GFR ( Amer) Est GFR (Non-Af Amer) Glucose Calcium Phosphorus Magnesium Total Bilirubin AST ALT Alkaline Phosphatase Ammonia Total Protein Albumin 01/30/18 01/30/18 01/30/18 22:08 22:08 22:08 Creatine Kinase 48 CK-MB (CK-2) 0.76 Troponin I 0.054 NT-Pro-B Natriuret Pep 30932 H 01/31/18 01/31/18 01/31/18 04:27 04:27 13:17 Creatine Kinase 47 72 CK-MB (CK-2) 0.96 Troponin I 0.068 NT-Pro-B Natriuret Pep 01/31/18 01/31/18 01/31/18 13:17 18:20 18:20 Creatine Kinase 58 CK-MB (CK-2) 1.53 1.59 Troponin I 0.079 0.081 NT-Pro-B Natriuret Pep 02/07/18 02/07/18 02/08/18 19:00 19:00 04:20 Creatine Kinase 376 H 348 H CK-MB (CK-2) 1.20 Troponin I 0.110 NT-Pro-B Natriuret Pep 02/08/18 02/08/18 02/08/18 04:20 08:47 11:45 Creatine Kinase 296 H CK-MB (CK-2) 1.20 1.10 Troponin I 0.811 1.090 NT-Pro-B Natriuret Pep Impressions: Gastric Emptying Nuclear Medicine 01/30/18 00:00 IMPRESSION: No emptying of the administered activity from the stomach over 2 hours. KUB X-Ray 02/02/18 11:00 IMPRESSION: THE TIP OF THE NASOGASTRIC TUBE IN THE STOMACH. Abdomen Ultrasound 02/03/18 00:00 IMPRESSION: Post cholecystectomy. Otherwise unremarkable study Abdomen/Pelvis CT 02/03/18 07:00 IMPRESSION: Small bowel obstruction with transition point in the midline pelvis. Head CT 02/08/18 00:00 IMPRESSION: No significant change. Chronic white matter changes. Focal encephalomalacia medial left occipital lobe EVIDENCE OF ACUTE STROKE: NO. Chest X-Ray 02/14/18 06:00 IMPRESSION: Interval extubation. Assessment & Plan - Diagnosis (1) Acute respiratory failure with hypoxia Is this a current diagnosis for this admission?: Yes Plan: The patient has been decannulated for 3 days. She requires BiPAP today. Blood gas did reveal some CO2 retention. I will order repeat chest x-ray. (2) End stage chronic kidney disease Is this a current diagnosis for this admission?: Yes Plan: Tolerated dialysis on Tuesday without difficulty. Over 4 L of fluid was removed. Patient seemed to brighten somewhat after dialysis. (3) Abnormal liver function tests Is this a current diagnosis for this admission?: Yes Plan: The patient's bilirubin has returned to normal. I will repeat a liver panel tomorrow. 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 I believe this is due to increased rate of tube feeds. I will increase her Lantus. She will continue on sliding scale. (5) Diabetic gastroparesis Is this a current diagnosis for this admission?: Yes Plan: She has been having bowel movements. Metoclopramide can have significant side effects. I will decrease the dose once again and give her 5 mg twice a day to see if this helps with her mental status. (6) Hypotension Is this a current diagnosis for this admission?: Yes Plan: Resolved (7) Intra-abdominal adhesions Is this a current diagnosis for this admission?: Yes Plan: See the surgicalist note (8) Morbid obesity with BMI of 40.0-44.9, adult Is this a current diagnosis for this admission?: Yes Plan: No acute intervention at this time. Continue to try and meet nutritional goals with tube feeding (9) Leukocytosis Qualifiers: Leukocytosis type: unspecified Qualified Code(s): D72.829 - Elevated white blood cell count, unspecified Is this a current diagnosis for this admission?: Yes Plan: I discontinued her triple antibiotic regimen yesterday. Her white blood cell count did rise to 18,000 on the regimen. Off of antibiotics her white blood cell count is improved. We will continue to monitor. - Time Time Spent with patient: 25-34 minutes Medications reviewed and adjusted accordingly: Yes - Plan Summary Plan Summary: When I talked to the family yesterday, with the patient seemingly improving slowly, it was felt that it would not be necessary to transfer her to [facility]. When I spoke with [facility] to update them I told him we would likely not be transferring. The ICU nurse called me in the afternoon and reported that the family still wanted the patient transferred. I called the transfer center at [facility] and put her back on the list. I will assess her in the morning and decide whether she still requires ICU level of care, intermediate level of care or medical floor level of care. This will also affect bed availability.
[2018-02-16] MEDS ORDERED: INSULIN GLARGINE,HUM.REC.ANLOG 300 UNIT/3 ML INSULN.PEN SUBCUT SCH (22:00)
[2018-02-16] MEDS: TRAZODONE HCL 50 MG TABLET PO SCH (22:18)
[2018-02-16] MEDS: FAMOTIDINE 20 MG TABLET NG SCH (22:19)
[2018-02-17] MEDS ORDERED: NORMAL SALINE 1000 ML 1,000 ML IV PRN (05:00)
[2018-02-17] MEDS ORDERED: EPOETIN ALFA INJ 20000 UNIT/1 ML VIAL (RENAL) IV PRN (05:00)
[2018-02-17] MEDS: HEPARIN SOD (PORCINE) 5,000 UNIT/ML 1 ML SYRINGE SUBCUT SCH ×3 (05:18→23:33)
[2018-02-17] MEDS: METOPROLOL TARTRATE 25 MG TABLET NG SCH ×4 (05:18→23:14)
[2018-02-17 06:13] LABS: HEMATOCRIT 31.9 % (36.0-47.0); HEMOGLOBIN 10.1 g/dL (12.0-15.5); MEAN CORPUSCULAR HEMOGLOBIN 26.3 pg (27.0-33.4); MEAN CORPUSCULAR HGB CONC 31.6 g/dL (32.0-36.0); MEAN CORPUSCULAR VOLUME 83 fl (80-97); PLATELET COUNT 378 10^3/uL (150-450); RED BLOOD COUNT 3.83 10^6/uL (3.72-5.28); RED CELL DISTRIBUTION WIDTH 18.6 % (11.5-14.0)
[2018-02-17 06:33] LABS: ARTERIAL BLOOD BASE EXCESS 3.3 mmol/L; ARTERIAL BLOOD H2CO3 1.54 mmol/L (1.05-1.35); ARTERIAL BLOOD HCO3 29.3 mmol/L (20-24); ARTERIAL BLOOD O2 SATURATION 99.4 % (94-98); ARTERIAL BLOOD PCO2 51.3 mmHg (35-45); ARTERIAL BLOOD PH 7.37 (7.35-7.45); ARTERIAL BLOOD PO2 212.2 mmHg (80-100); ARTERIAL BLOOD TOTAL CO2 30.8 mmol/L (21-25)
[2018-02-17 06:36] LABS: ABSOLUTE LYMPHOCYTES# (MANUAL) 2.5 10^3/uL (0.5-4.7); ABSOLUTE MONOCYTES # (MANUAL) 0.4 10^3/uL (0.1-1.4); ABSOLUTE NEUTROPHILS# (MANUAL) 9.9 10^3/uL (1.7-8.2); BASOPHILS % (MANUAL) 0 % (0-2); EOSINOPHILS % (MANUAL) 2 % (0-6); LYMPHOCYTES % (MANUAL) 19 % (13-45); MONOCYTES % (MANUAL) 3 % (3-13); NUCLEATED RED BLOOD CELLS 2 /100 WBC (0); SEGMENTED NEUTROPHILS % (MAN) 76 % (42-78); TOTAL CELLS COUNTED 100
[2018-02-17 06:39] LABS: ALANINE AMINOTRANSFERASE 20 U/L (9-52); ALBUMIN 3.2 g/dL (3.5-5.0); ALKALINE PHOSPHATASE 288 U/L (38-126); ANION GAP 17 (5-19); ANISOCYTOSIS 3+; ASPARTATE AMINO TRANSFERASE 19 U/L (14-36); BILIRUBIN,DIRECT 1.2 mg/dL (0.0-0.4); BILIRUBIN,TOTAL 1.2 mg/dL (0.2-1.3); BLOOD UREA NITROGEN 39 mg/dL (7-20); CALCIUM 9.5 mg/dL (8.4-10.2); CARBON DIOXIDE 25 mmol/L (22-30); CHLORIDE 97 mmol/L (98-107); GLUCOSE 242 mg/dL (75-110); PHOSPHORUS 6.2 mg/dL (2.5-4.5); PLATELET COMMENT ADEQUATE; PLATELET LARGE PRESENT; POIKILOCYTOSIS SLIGHT; POLYCHROMASIA 1+; POTASSIUM 3.7 mmol/L (3.6-5.0); SODIUM 138.9 mmol/L (137-145); TARGET CELLS SLIGHT; TOTAL PROTEIN 6.6 g/dL (6.3-8.2)
[2018-02-17 06:39] LABS: ARTERIAL BLOOD FIO2 6.5L
[2018-02-17] MEDS: INSULIN LISPRO 100 UNIT/ML 3 ML VIAL SUBCUT PRN (06:47)
--- NOTE | 2018-02-17 10:10 | PDOC PROGRESS REPORT ---
Subjective Progress Note for:: 02/17/18 Subjective:: The patient is more awake today. She is attempting to answer all my questions. Her voice is somewhat hoarse but she does have the nasogastric tube in place. This is the most awake and alert I have seen her since assuming her care. She in fact is resting on nasal cannula this morning. Reason For Visit: PERSISTENT VOMITING ? DIABETES Physical Exam Vital Signs: Temp Pulse Resp BP Pulse Ox 98.6 F 93 17 128/79 H 97 02/17/18 00:00 02/17/18 06:00 02/17/18 06:00 02/17/18 06:00 02/17/18 06:00 Intake & Output 02/16/18 02/17/18 02/18/18 06:59 06:59 06:59 Intake Total 789.5 1049 Output Total 4500 0 Balance -3710.5 1049 Weight 99.7 kg General appearance: PRESENT: no acute distress, morbidly obese, well-developed Head exam: PRESENT: normocephalic Eye exam: PRESENT: conjunctiva pale. ABSENT: scleral icterus Ear exam: PRESENT: normal external ear exam Mouth exam: PRESENT: moist Respiratory exam: PRESENT: clear to auscultation charity - Minimally coarse breath sounds. Lungs are otherwise clear anteriorly bilaterally., symmetrical, unlabored. ABSENT: accessory muscle use, rales, rhonchi, wheezes Cardiovascular exam: PRESENT: RRR, +S1, +S2 GI/Abdominal exam: PRESENT: normal bowel sounds, soft, tenderness - Near midline incision. ABSENT: distended, guarding Rectal exam: PRESENT: deferred Extremities exam: ABSENT: calf tenderness, pedal edema Musculoskeletal exam: PRESENT: normal inspection Neurological exam: PRESENT: alert, awake, oriented to person. ABSENT: oriented to place - Difficult to ascertain. She was looking around the room and seems surprised to be in the hospital. Psychiatric exam: PRESENT: flat affect. ABSENT: agitated, anxious Focused psych exam: ABSENT: restlessness Results Laboratory Results: 02/17/18 06:04 02/17/18 06:04 02/16/18 02/17/18 02/17/18 13:00 06:04 06:04 WBC 13.0 H RBC 3.83 Hgb 10.1 L Hct 31.9 L MCV 83 MCH 26.3 L MCHC 31.6 L RDW 18.6 H Plt Count 378 Seg Neutrophils % Not Reportable Lymphocytes % Not Reportable Monocytes % Not Reportable Eosinophils % Not Reportable Basophils % Not Reportable Absolute Neutrophils Not Reportable Absolute Lymphocytes Not Reportable Absolute Monocytes Not Reportable Absolute Eosinophils Not Reportable Absolute Basophils Not Reportable Carbonic Acid 1.56 H HCO3/H2CO3 Ratio 18:1 ABG pH 7.36 ABG pCO2 51.9 H ABG pO2 87.3 ABG HCO3 28.7 H ABG O2 Saturation 96.2 ABG Base Excess 2.6 FiO2 30% Sodium 138.9 Potassium 3.7 Chloride 97 L Carbon Dioxide 25 Anion Gap 17 BUN 39 H Creatinine 6.61 H Est GFR ( Amer) 8 L Est GFR (Non-Af Amer) 6 L Glucose 242 H Calcium 9.5 Phosphorus 6.2 H Magnesium 2.3 Total Bilirubin 1.2 AST 19 ALT 20 Alkaline Phosphatase 288 H Total Protein 6.6 Albumin 3.2 L 02/17/18 06:23 WBC RBC Hgb Hct MCV MCH MCHC RDW Plt Count Seg Neutrophils % Lymphocytes % Monocytes % Eosinophils % Basophils % Absolute Neutrophils Absolute Lymphocytes Absolute Monocytes Absolute Eosinophils Absolute Basophils Carbonic Acid 1.54 H HCO3/H2CO3 Ratio 19:1 ABG pH 7.37 ABG pCO2 51.3 H ABG pO2 212.2 H ABG HCO3 29.3 H ABG O2 Saturation 99.4 H ABG Base Excess 3.3 FiO2 6.5L Sodium Potassium Chloride Carbon Dioxide Anion Gap BUN Creatinine Est GFR ( Amer) Est GFR (Non-Af Amer) Glucose Calcium Phosphorus Magnesium Total Bilirubin AST ALT Alkaline Phosphatase Total Protein Albumin 01/30/18 01/30/18 01/30/18 22:08 22:08 22:08 Creatine Kinase 48 CK-MB (CK-2) 0.76 Troponin I 0.054 NT-Pro-B Natriuret Pep 15065 H 01/31/18 01/31/18 01/31/18 04:27 04:27 13:17 Creatine Kinase 47 72 CK-MB (CK-2) 0.96 Troponin I 0.068 NT-Pro-B Natriuret Pep 01/31/18 01/31/18 01/31/18 13:17 18:20 18:20 Creatine Kinase 58 CK-MB (CK-2) 1.53 1.59 Troponin I 0.079 0.081 NT-Pro-B Natriuret Pep 02/07/18 02/07/18 02/08/18 19:00 19:00 04:20 Creatine Kinase 376 H 348 H CK-MB (CK-2) 1.20 Troponin I 0.110 NT-Pro-B Natriuret Pep 02/08/18 02/08/18 02/08/18 04:20 08:47 11:45 Creatine Kinase 296 H CK-MB (CK-2) 1.20 1.10 Troponin I 0.811 1.090 NT-Pro-B Natriuret Pep Impressions: Gastric Emptying Nuclear Medicine 01/30/18 00:00 IMPRESSION: No emptying of the administered activity from the stomach over 2 hours. KUB X-Ray 02/02/18 11:00 IMPRESSION: THE TIP OF THE NASOGASTRIC TUBE IN THE STOMACH. Abdomen Ultrasound 02/03/18 00:00 IMPRESSION: Post cholecystectomy. Otherwise unremarkable study Abdomen/Pelvis CT 02/03/18 07:00 IMPRESSION: Small bowel obstruction with transition point in the midline pelvis. Head CT 02/08/18 00:00 IMPRESSION: No significant change. Chronic white matter changes. Focal encephalomalacia medial left occipital lobe EVIDENCE OF ACUTE STROKE: NO. Chest X-Ray 02/14/18 06:00 IMPRESSION: Interval extubation. Assessment & Plan - Diagnosis (1) Acute respiratory failure with hypoxia Is this a current diagnosis for this admission?: Yes Plan: The patient has been using BiPAP intermittently. This morning she is resting comfortably off BiPAP. Her blood gas still shows hypercapnia. Her breathing is still somewhat shallow. Her lungs continue to improve. She has duo nebs available every 3 hours if needed. As she wakens further we can start incentive spirometry. (2) End stage chronic kidney disease Is this a current diagnosis for this admission?: Yes Plan: The patient is due for hemodialysis today. They have consistently been able to remove 4+ liters of fluid with each treatment. Typically her blood pressure remained stable during her last few treatments. She will continue on her Tuesday, Tuesday and Tuesday schedule. She does have hyperphosphatemia. I will defer to nephrology for management. (3) Abnormal liver function tests Is this a current diagnosis for this admission?: Yes Plan: Transaminases and bilirubin are now normal. Alkaline phosphatase remains elevated. 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 I will increase her Lantus to 12 units. She is on Nepro tube feeds. As her diet advances we will resume a carbohydrate consistent diet. (6) Hypotension Is this a current diagnosis for this admission?: Yes Plan: Resolved. In fact the patient is tolerating her metoprolol therapy. (7) Intra-abdominal adhesions Is this a current diagnosis for this admission?: Yes Plan: Addressed per surgery (8) Leukocytosis Qualifiers: Leukocytosis type: unspecified Qualified Code(s): D72.829 - Elevated white blood cell count, unspecified Is this a current diagnosis for this admission?: Yes Plan: Off of antibiotics her white cell count continues to improve slowly. She is now down to 13,000. Continue to hold antibiotic therapy unless a specific infection is identified. (9) Class 2 obesity with body mass index (BMI) of 37.0 to 37.9 in adult Qualifiers: Obesity type: unspecified obesity type Serious obesity comorbidity presen ce: with serious comorbidity Qualified Code(s): E66.01 - Morbid (severe) obesity due to excess calories; Z68.37 - Body mass index (BMI) 37.0-37.9, adult Is this a current diagnosis for this admission?: Yes Plan: The patient's BMI was in the 40s. Combination of volume loss with dialysis and weight loss from her critical illness now have her BMI down to 37.7. She will need to resume a cardiac, renal friendly carbohydrate consistent diet as her intake advances. - Time Time Spent with patient: 35 or more minutes Medications reviewed and adjusted accordingly: Yes [facility] - Plan Summary Plan Summary: Despite patient's improvement family still requested transfer to [facility]. I continue to work with the transfer center to accomplish this.
--- NOTE | 2018-02-17 11:17 | RADIOLOGY REPORT (SQ) ---
EXAM DESCRIPTION: CHEST SINGLE VIEW COMPLETED DATE/TIME: 02/17/2018 11:01 am REASON FOR STUDY: Respiratory failure COMPARISON: 02/14/2018 EXAM PARAMETERS: NUMBER OF VIEWS: One view. TECHNIQUE: Single frontal radiographic view of the chest acquired. RADIATION DOSE: NA LIMITATIONS: None. FINDINGS: LUNGS AND PLEURA: No opacities, masses or pneumothorax. No pleural effusion. MEDIASTINUM AND HILAR STRUCTURES: Stable. HEART AND VASCULAR STRUCTURES: Enlarged cardiac silhouette, stable. Atherosclerotic aorta. BONES: No acute findings. HARDWARE: Left subclavian, axillary vascular stents. Enteric tube tip below diaphragm but excluded b y collimation. OTHER: No other significant finding. IMPRESSION: Stable enlarged cardiac silhouette without additional evidence of acute cardiopulmonary process. TECHNICAL DOCUMENTATION: JOB ID: [id number] [employer]- All Rights Reserved Reading location - IP/workstation name: [facility] [email or web address]
[2018-02-17] MEDS ORDERED: HEPARIN SOD (PORCINE) 1,000 UNIT/ML 10 ML VIAL ONE (13:20)
[2018-02-17] MEDS ORDERED: HEPARIN SOD (PORCINE) 1,000 UNIT/ML 10 ML VIAL IV PRN (14:31)
[2018-02-17] MEDS: METOCLOPRAMIDE HCL INJ/PF 10 MG/2 ML SDV IV SCH ×2 (15:16→23:15)
[2018-02-17] MEDS: GUAIFENESIN SYRP 200 MG/10 ML UDC PO SCH ×4 (15:17→23:14)
--- NOTE | 2018-02-17 17:44 | PDOC PROGRESS REPORT ---
Subjective Progress Note for:: 02/17/18 Subjective:: I saw the patient during dialysis treatment this afternoon. Patient's mental status waxes and wane. And initial part of dialysis she seems to be a little bit more somnolent but follows commands like squeezing my hands were opening the eyes. She is on nasal cannula during dialysis. At the end of the dialysis treatment she was more awake even trying to tell us that she think everybody and she is making an okay sign with her hands and fingers. We were able to remove about 3 L of ultrafiltration today and she tolerated it well without any problems. Reason For Visit: PERSISTENT VOMITING ? DIABETES Physical Exam Vital Signs: Temp Pulse Resp BP Pulse Ox 98.4 F 86 18 122/67 100 02/17/18 16:00 02/17/18 10:00 02/17/18 15:29 02/17/18 15:29 02/17/18 15:29 Intake & Output 02/16/18 02/17/18 02/18/18 06:59 06:59 06:59 Intake Total 789.5 1049 50 Output Total 4500 0 0 Balance -3710.5 1049 50 Weight 99.7 kg Exam: General appearance: PRESENT: no acute distress, cooperative, well-developed, well-nourished Head exam: PRESENT: atraumatic, normocephalic Eye exam: PRESENT: conjunctiva pale, PERRLA. ABSENT: scleral icterus Neck exam: ABSENT: JVD Respiratory exam: PRESENT: Diminished breath sounds. ABSENT: crackles, rales, rhonchi, unlabored, wheezes Cardiovascular exam: PRESENT: Regular rate rhythm -+S1, +S2. ABSENT: diastolic murmur, systolic murmur GI/Abdominal exam: PRESENT: normal bowel sounds, soft. ABSENT: guarding, mass, tenderness Extremities exam: ABSENT: No edema Neurological exam: PRESENT: alert, awake, follows commands and tries to communicate. Skin exam: PRESENT: dry, warm, Cardiovascular exam: PRESENT: +S1, +S2, systolic murmur GI/Abdominal exam: PRESENT: rigid, tenderness Results Laboratory Results: 02/17/18 06:04 02/17/18 06:04 02/17/18 02/17/18 02/17/18 06:04 06:04 06:23 WBC 13.0 H RBC 3.83 Hgb 10.1 L Hct 31.9 L MCV 83 MCH 26.3 L MCHC 31.6 L RDW 18.6 H Plt Count 378 Seg Neutrophils % Not Reportable Lymphocytes % Not Reportable Monocytes % Not Reportable Eosinophils % Not Reportable Basophils % Not Reportable Absolute Neutrophils Not Reportable Absolute Lymphocytes Not Reportable Absolute Monocytes Not Reportable Absolute Eosinophils Not Reportable Absolute Basophils Not Reportable Carbonic Acid 1.54 H HCO3/H2CO3 Ratio 19:1 ABG pH 7.37 ABG pCO2 51.3 H ABG pO2 212.2 H ABG HCO3 29.3 H ABG O2 Saturation 99.4 H ABG Base Excess 3.3 FiO2 6.5L Sodium 138.9 Potassium 3.7 Chloride 97 L Carbon Dioxide 25 Anion Gap 17 BUN 39 H Creatinine 6.61 H Est GFR ( Amer) 8 L Est GFR (Non-Af Amer) 6 L Glucose 242 H Calcium 9.5 Phosphorus 6.2 H Magnesium 2.3 Total Bilirubin 1.2 AST 19 ALT 20 Alkaline Phosphatase 288 H Total Protein 6.6 Albumin 3.2 L 01/30/18 01/30/18 01/30/18 22:08 22:08 22:08 Creatine Kinase 48 CK-MB (CK-2) 0.76 Troponin I 0.054 NT-Pro-B Natriuret Pep 82261 H 01/31/18 01/31/18 01/31/18 04:27 04:27 13:17 Creatine Kinase 47 72 CK-MB (CK-2) 0.96 Troponin I 0.068 NT-Pro-B Natriuret Pep 01/31/18 01/31/18 01/31/18 13:17 18:20 18:20 Creatine Kinase 58 CK-MB (CK-2) 1.53 1.59 Troponin I 0.079 0.081 NT-Pro-B Natriuret Pep 02/07/18 02/07/18 02/08/18 19:00 19:00 04:20 Creatine Kinase 376 H 348 H CK-MB (CK-2) 1.20 Troponin I 0.110 NT-Pro-B Natriuret Pep 02/08/18 02/08/18 02/08/18 04:20 08:47 11:45 Creatine Kinase 296 H CK-MB (CK-2) 1.20 1.10 Troponin I 0.811 1.090 NT-Pro-B Natriuret Pep Impressions: Gastric Emptying Nuclear Medicine 01/30/18 00:00 IMPRESSION: No emptying of the administered activity from the stomach over 2 hours. KUB X-Ray 02/02/18 11:00 IMPRESSION: THE TIP OF THE NASOGASTRIC TUBE IN THE STOMACH. Abdomen Ultrasound 02/03/18 00:00 IMPRESSION: Post cholecystectomy. Otherwise unremarkable study Abdomen/Pelvis CT 02/03/18 07:00 IMPRESSION: Small bowel obstruction with transition point in the midline pelv is. Head CT 02/08/18 00:00 IMPRESSION: No significant change. Chronic white matter changes. Focal encephalomalacia medial left occipital lobe EVIDENCE OF ACUTE STROKE: NO. Chest X-Ray 02/17/18 10:15 IMPRESSION: Stable enlarged cardiac silhouette without additional evidence of acute cardiopulmonary process. Assessment & Plan - Diagnosis (1) End stage chronic kidney disease Is this a current diagnosis for this admission?: Yes Plan: We will do dialysis today for 3 hours, using the patient's AV fistula, with 2 potassium bath, blood flow rate of 450 mL per minute, dialysate flow rate of 800 mL per minute, ultrafiltration 3 L as tolerated, low-dose heparin and Procrit with 20,000 units during dialysis intravenously. Patient was monitored throughout dialysis treatment and she tolerated dialysis well without any proble ms or complications. (2) Anemia in chronic kidney disease Qualifiers: Qualified Code(s): N18.3 - Chronic kidney disease, stage 3 (moderate); D63.1 - Anemia in chronic kidney disease Is this a current diagnosis for this admission?: Yes Plan: We will give Procrit 20,000 units during dialysis IV. (3) Hypotension Is this a current diagnosis for this admission?: Yes Plan: Resolved and currently with acceptable blood pressures. (4) Acute respiratory failure with hypoxia Is this a current diagnosis for this admission?: Yes Plan: Improving currently just on nasal cannula. However intermittently would require BiPAP. (5) Diabetic gastroparesis Is this a current diagnosis for this admission?: Yes Plan: Continue Reglan to 5 mg IV every 8 hours in view of ESRD. (6) Abnormal liver function tests Is this a current diagnosis for this admission?: Yes (7) Small bowel obstruction Is this a current diagnosis for this admission?: Yes Plan: Status post exploratory laparotomy, lysis of adhesions, and reduction of incarcerated hernia. Surgery following. 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 Patient still on the waiting list. Discussed case with Dr. Almonte. - Time Time with patient: 15-25 minutes
[2018-02-17] MEDS ORDERED: OXYCODONE HCL IR 5 MG TABLET NG PRN (18:37)
[2018-02-17] MEDS ORDERED: INSULIN GLARGINE,HUM.REC.ANLOG 300 UNIT/3 ML INSULN.PEN SUBCUT SCH (22:00)
[2018-02-17] MEDS: FAMOTIDINE 20 MG TABLET NG SCH (23:14)
[2018-02-17] MEDS: TRAZODONE HCL 50 MG TABLET PO SCH (23:14)
[2018-02-18] MEDS: METOPROLOL SUCCINATE 50 MG TAB.SR.24H PO SCH (02:05)
[2018-02-18] MEDS: AZTREONAM 0.5 GM in DEXTROSE 5%-WATER 50 ML IV SCH (02:06)
[2018-02-18] MEDS: HEPARIN SOD (PORCINE) 5,000 UNIT/ML 1 ML SYRINGE SUBCUT SCH ×3 (05:22→22:53)
[2018-02-18] MEDS: METOPROLOL TARTRATE 25 MG TABLET NG SCH ×4 (05:22→23:11)
[2018-02-18 06:28] LABS: HEMATOCRIT 34.3 % (36.0-47.0); HEMOGLOBIN 10.8 g/dL (12.0-15.5); MEAN CORPUSCULAR HEMOGLOBIN 26.5 pg (27.0-33.4); MEAN CORPUSCULAR HGB CONC 31.4 g/dL (32.0-36.0); MEAN CORPUSCULAR VOLUME 84 fl (80-97); PLATELET COUNT 367 10^3/uL (150-450); RED BLOOD COUNT 4.07 10^6/uL (3.72-5.28); RED CELL DISTRIBUTION WIDTH 19.1 % (11.5-14.0)
[2018-02-18 06:46] LABS: ALBUMIN 3.2 g/dL (3.5-5.0); ANION GAP 12 (5-19); BLOOD UREA NITROGEN 27 mg/dL (7-20); CALCIUM 9.6 mg/dL (8.4-10.2); CARBON DIOXIDE 30 mmol/L (22-30); CHLORIDE 98 mmol/L (98-107); GLUCOSE 162 mg/dL (75-110); SODIUM 139.6 mmol/L (137-145)
[2018-02-18 07:00] LABS: PHOSPHORUS 3.9 mg/dL (2.5-4.5)
[2018-02-18] MEDS: INSULIN LISPRO 100 UNIT/ML 3 ML VIAL SUBCUT PRN ×4 (07:09→17:32)
--- NOTE | 2018-02-18 11:26 | PDOC PROGRESS REPORT ---
Subjective Progress Note for:: 02/18/18 Subjective:: Resting comfortably in bed. This is the most awake, alert and oriented she is been. She answers all questions appropriately. Still with a slightly hoarse voice but she does have a nasogastric tube in place. Breathing is comfortable. Reason For Visit: PERSISTENT VOMITING ? DIABETES Physical Exam Vital Signs: Temp Pulse Resp BP Pulse Ox 99.4 F 81 18 116/49 L 97 02/18/18 07:54 02/18/18 07:54 02/18/18 07:54 02/18/18 07:54 02/18/18 07:54 Intake & Output 02/17/18 02/18/18 02/19/18 06:59 06:59 06:59 Intake Total 1049 290 Output Total 0 3000 Balance 1049 -2710 Weight 100.2 kg General appearance: PRESENT: no acute distress, cooperative, morbidly obese - BMI 37.9 Head exam: PRESENT: normocephalic, other - Alopecia Eye exam: PRESENT: conjunctiva pale. ABSENT: scleral icterus Ear exam: PRESENT: normal external ear exam Mouth exam: PRESENT: moist, tongue midline Respiratory exam: PRESENT: rales - Faint rales at bases, symmetrical, unlabored. ABSENT: rhonchi, wheezes Cardiovascular exam: PRESENT: RRR, +S1, +S2 GI/Abdominal exam: PRESENT: distended, normal bowel sounds, soft. ABSENT: tenderness Extremities exam: ABSENT: calf tenderness, pedal edema Musculoskeletal exam: PRESENT: normal inspection Neurological exam: PRESENT: alert, awake, oriented to person, oriented to place, oriented to time, oriented to situation, CN II-XII grossly intact Psychiatric exam: PRESENT: appropriate affect, normal mood Results Laboratory Results: 02/18/18 05:07 02/18/18 05:07 02/18/18 02/18/18 05:07 05:07 WBC 13.0 H RBC 4.07 Hgb 10.8 L Hct 34.3 L MCV 84 MCH 26.5 L MCHC 31.4 L RDW 19.1 H Plt Count 367 Sodium 139.6 Potassium 4.0 Chloride 98 Carbon Dioxide 30 Anion Gap 12 BUN 27 H Creatinine 4.86 H Est GFR ( Amer) 11 L Est GFR (Non-Af Amer) 9 L Glucose 162 H Calcium 9.6 Phosphorus 3.9 D Albumin 3.2 L 01/30/18 01/30/18 01/30/18 22:08 22:08 22:08 Creatine Kinase 48 CK-MB (CK-2) 0.76 Troponin I 0.054 NT-Pro-B Natriuret Pep 64922 H 01/31/18 01/31/18 01/31/18 04:27 04:27 13:17 Creatine Kinase 47 72 CK-MB (CK-2) 0.96 Troponin I 0.068 NT-Pro-B Natriuret Pep 01/31/18 01/31/18 01/31/18 13:17 18:20 18:20 Creatine Kinase 58 CK-MB (CK-2) 1.53 1.59 Troponin I 0.079 0.081 NT-Pro-B Natriuret Pep 02/07/18 02/07/18 02/08/18 19:00 19:00 04:20 Creatine Kinase 376 H 348 H CK-MB (CK-2) 1.20 Troponin I 0.110 NT-Pro-B Natriuret Pep 02/08/18 02/08/18 02/08/18 04:20 08:47 11:45 Creatine Kinase 296 H CK-MB (CK-2) 1.20 1.10 Troponin I 0.811 1.090 NT-Pro-B Natriuret Pep Impressions: Gastric Emptying Nuclear Medicine 01/30/18 00:00 IMPRESSION: No emptying of the administered activity from the stomach over 2 hours. KUB X-Ray 02/02/18 11:00 IMPRESSION: THE TIP OF THE NASOGASTRIC TUBE IN THE STOMACH. Abdomen Ultrasound 02/03/18 00:00 IMPRESSION: Post cholecystectomy. Otherwise unremarkable study Abdomen/Pelvis CT 02/03/18 07:00 IMPRESSION: Small bowel obstruction with transition point in the midline pelvis. Head CT 02/08/18 00:00 IMPRESSION: No significant change. Chronic white matter changes. Focal encephalomalacia medial left occipital lobe EVIDENCE OF ACUTE STROKE: NO. Chest X-Ray 02/17/18 10:15 IMPRESSION: Stable enlarged cardiac silhouette without additional evidence of acute cardiopulmonary process. Assessment & Plan - Diagnosis (1) Acute respiratory failure with hypoxia Is this a current diagnosis for this admission?: Yes Plan: The patient is extubated and on nasal cannula oxygen. Acute failure resolved. (2) Diabetic gastroparesis Is this a current diagnosis for this admission?: Yes Plan: Patient is having bowel movements. We will try to use the lowest dose of Reglan possible. 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 Once oral diet begins we will probably need to adjust her insulin. (4) Hypotension Is this a current diagnosis for this admission?: Yes Plan: Resolved (5) Intra-abdominal adhesions Is this a current diagnosis for this admission?: Yes Plan: Treated with surgery as well as her small bowel obstruction. Surgery has signed off. There are available if needed. (6) Leukocytosis Qualifiers: Leukocytosis type: unspecified Qualified Code(s): D72.829 - Elevated white blood cell count, unspecified Is this a current diagnosis for this admission?: Yes Plan: Still with a slightly elevated white count of 13,000. Continue to monitor off of antibiotics. (7) Class 2 obesity with body mass index (BMI) of 37.0 to 37.9 in adult Qualifiers: Obesity type: unspecified obesity type Serious obesity comorbidity presence: with serious comorbidity Qualified Code(s): E66.01 - Morbid (severe) obesity due to excess calories; Z68.37 - Body mass index (BMI) 37.0-37.9, adult Is this a current diagnosis for this admission?: Yes Plan: Once patient recovers encourage stricter diet and exercise. (8) End stage chronic kidney disease Is this a current diagnosis for this admission?: Yes Plan: Continue with Tuesday, Tuesday and Tuesday dialysis. (9) Abnormal liver function tests Is this a current diagnosis for this admission?: Yes Plan: LFTs normalized. Resolved. (10) Small bowel obstruction Is this a current diagnosis for this admission?: Yes Plan: Obstruction was secondary to incarcerated hernia. This was treated surgically and has resolved. - Time Time Spent with patient: Less than 15 minutes Medications reviewed and adjusted accordingly: Yes - Plan Summary Plan Summary: This morning the patient was clear and answering questions appropriately. She did report to me that she does not want to transfer to [facility]. I told her if this is a decision that clearly is hers but she should discuss this with her children.
[2018-02-18] MEDS: GUAIFENESIN SYRP 200 MG/10 ML UDC PO SCH ×4 (11:27→22:54)
[2018-02-18] MEDS: METOCLOPRAMIDE HCL INJ/PF 10 MG/2 ML SDV IV SCH ×2 (11:28→22:53)
[2018-02-18] MEDS: FAMOTIDINE 20 MG TABLET NG SCH (22:52)
[2018-02-18] MEDS: TRAZODONE HCL 50 MG TABLET PO SCH (22:52)
[2018-02-18] MEDS: INSULIN GLARGINE,HUM.REC.ANLOG 300 UNIT/3 ML INSULN.PEN SUBCUT SCH (22:55)
[2018-02-19] MEDS: HEPARIN SOD (PORCINE) 5,000 UNIT/ML 1 ML SYRINGE SUBCUT SCH ×3 (06:06→22:12)
[2018-02-19] MEDS: METOPROLOL TARTRATE 25 MG TABLET NG SCH ×3 (06:10→17:16)
[2018-02-19 09:40] LABS: ABSOLUTE BASOPHILS # (AUTO) 0.2 10^3/uL (0.0-0.2); ABSOLUTE EOSINOPHILS # (AUTO) 0.7 10^3/uL (0.0-0.6); ABSOLUTE LYMPHOCYTES (AUTO) 2.2 10^3/uL (0.5-4.7); ABSOLUTE MONOCYTES (AUTO) 1.4 10^3/uL (0.1-1.4); ABSOLUTE NEUT (AUTO) 7.4 10^3/uL (1.7-8.2); BASOPHILS % (AUTO) 1.4 % (0-2); HEMATOCRIT 35.8 % (36.0-47.0); HEMOGLOBIN 11.4 g/dL (12.0-15.5); LYMPHOCYTES % (AUTO) 18.4 % (13-45); MEAN CORPUSCULAR HEMOGLOBIN 26.7 pg (27.0-33.4); MEAN CORPUSCULAR HGB CONC 31.8 g/dL (32.0-36.0); MEAN CORPUSCULAR VOLUME 84 fl (80-97); PLATELET COUNT 384 10^3/uL (150-450); RED BLOOD COUNT 4.27 10^6/uL (3.72-5.28); RED CELL DISTRIBUTION WIDTH 19.5 % (11.5-14.0); SEGMENTED NEUTROPHILS % (AUTO) 62.2 % (42-78); TOTAL CELLS COUNTED % (AUTO) 100 %; WHITE BLOOD COUNT 11.9 10^3/uL (4.0-10.5)
[2018-02-19] MEDS: METOCLOPRAMIDE HCL INJ/PF 10 MG/2 ML SDV IV SCH ×2 (09:41→22:13)
[2018-02-19] MEDS: GUAIFENESIN SYRP 200 MG/10 ML UDC PO SCH ×5 (09:41→22:13)
--- NOTE | 2018-02-19 19:55 | PDOC PROGRESS REPORT ---
Subjective Progress Note for:: 02/19/18 Subjective:: patient is sitting on the bed- able to tell me her name, and that she's in the hospital- she knows her sister and daughter at bedside by their names. Reason For Visit: PERSISTENT VOMITING ? DIABETES Physical Exam Vital Signs: Temp Pulse Resp BP Pulse Ox 98.3 F 77 18 121/44 L 91 L 02/19/18 15:39 02/19/18 15:39 02/19/18 15:39 02/19/18 15:39 02/19/18 15:39 Intake & Output 02/18/18 02/19/18 02/20/18 06:59 06:59 06:59 Intake Total 290 966 222 Output Total 3000 Balance -2710 966 222 Weight 220 lb 14.451 oz 230 lb 2.601 oz Results Laboratory Results: 02/19/18 09:00 02/18/18 05:07 02/19/18 09:00 WBC 11.9 H RBC 4.27 Hgb 11.4 L Hct 35.8 L MCV 84 MCH 26.7 L MCHC 31.8 L RDW 19.5 H Plt Count 384 Seg Neutrophils % 62.2 Lymphocytes % 18.4 Monocytes % 12.0 Eosinophils % 6.0 Basophils % 1.4 Absolute Neutrophils 7.4 Absolute Lymphocytes 2.2 Absolute Monocytes 1.4 Absolute Eosinophils 0.7 H Absolute Basophils 0.2 01/30/18 01/30/18 01/30/18 22:08 22:08 22:08 Creatine Kinase 48 CK-MB (CK-2) 0.76 Troponin I 0.054 NT-Pro-B Natriuret Pep 11895 H 01/31/18 01/31/18 01/31/18 04:27 04:27 13:17 Creatine Kinase 47 72 CK-MB (CK-2) 0.96 Troponin I 0.068 NT-Pro-B Natriuret Pep 01/31/18 01/31/18 01/31/18 13:17 18:20 18:20 Creatine Kinase 58 CK-MB (CK-2) 1.53 1.59 Troponin I 0.079 0.081 NT-Pro-B Natriuret Pep 02/07/18 02/07/18 02/08/18 19:00 19:00 04:20 Creatine Kinase 376 H 348 H CK-MB (CK-2) 1.20 Troponin I 0.110 NT-Pro-B Natriuret Pep 02/08/18 02/08/18 02/08/18 04:20 08:47 11:45 Creatine Kinase 296 H CK-MB (CK-2) 1.20 1.10 Troponin I 0.811 1.090 NT-Pro-B Natriuret Pep Impressions: Gastric Emptying Nuclear Medicine 01/30/18 00:00 IMPRESSION: No emptying of the administered activity from the stomach over 2 hours. KUB X-Ray 02/02/18 11:00 IMPRESSION: THE TIP OF THE NASOGASTRIC TUBE IN THE STOMACH. Abdomen Ultrasound 02/03/18 00:00 IMPRESSION: Post cholecystectomy. Otherwise unremarkable study Abdomen/Pelvis CT 02/03/18 07:00 IMPRESSION: Small bowel obstruction with transition point in the midline pelvis. Head CT 02/08/18 00:00 IMPRESSION: No significant change. Chronic white matter changes. Focal encephalomalacia medial left occipital lobe EVIDENCE OF ACUTE STROKE: NO. Chest X-Ray 02/17/18 10:15 IMPRESSION: Stable enlarged cardiac silhouette without additional evidence of acute cardiopulmonary process. Assessment & Plan - Diagnosis (1) Acute respiratory failure with hypoxia Is this a current diagnosis for this admission?: Yes (2) Diabetic gastroparesis Is this a current diagnosis for this admission?: Yes (3) Intra-abdominal adhesions Is this a current diagnosis for this admission?: Yes (4) Small bowel obstruction Is this a current diagnosis for this admission?: Yes (5) Anemia in chronic kidney disease Qualifiers: Chronic kidney disease stage: stage 3 (moderate) Qualified Code(s): N18.3 - Chronic kidney disease, stage 3 (moderate); D63.1 - Anemia in chronic kidney disease; D63.1 - Anemia in chronic kidney disease Is this a current diagnosis for this admission?: Yes (6) Encephalopathy Is this a current diagnosis for this admission?: Yes (7) End stage renal disease on dialysis Is this a current diagnosis for this admission?: Yes - Plan Summary Plan Summary: acute respiratory failure with hypoxia- she's still on some oxygen SBO - s/p surgery with lysis of adhesions- return of BS and doing well- on a diet now- surgery has signed off encephalopathy- per family patient is on herself and is having altered mental status- unclear as to what is causing her these symptoms- family would like transfer- yesterday it was decided that patient will not be transferred per patient wish- today i spoke with psych and they have deemed her capable of making decisions and patient expressed interest of being transferred to a tertiary facility of her symptoms. i spoke with family and they are in agreement also. they want a neurology consult for this- unfortunately we do not have neurology and hence the transfer. I called [facility] transfer center- she's on the list and awaiting bed opening for transfer ESRD on dialysis- c/w dialysis as scheduled.
[2018-02-19] MEDS: TRAZODONE HCL 50 MG TABLET PO SCH (22:13)
[2018-02-19] MEDS: FAMOTIDINE 20 MG TABLET NG SCH (22:13)
[2018-02-19] MEDS: INSULIN GLARGINE,HUM.REC.ANLOG 300 UNIT/3 ML INSULN.PEN SUBCUT SCH (22:14)
[2018-02-20] MEDS: METOPROLOL TARTRATE 25 MG TABLET NG SCH ×4 (00:57→18:56)
[2018-02-20] MEDS ORDERED: NORMAL SALINE 1000 ML 1,000 ML IV PRN (05:00)
[2018-02-20] MEDS: IPRATROPIUM/ALBUTEROL 0.5-2.5 MG/3 ML AMPUL NEB PRN (05:04)
[2018-02-20] MEDS: HEPARIN SOD (PORCINE) 5,000 UNIT/ML 1 ML SYRINGE SUBCUT SCH ×4 (05:08→22:28)
[2018-02-20 05:30] LABS: ABSOLUTE BASOPHILS # (AUTO) 0.1 10^3/uL (0.0-0.2); ABSOLUTE EOSINOPHILS # (AUTO) 0.7 10^3/uL (0.0-0.6); ABSOLUTE LYMPHOCYTES (AUTO) 2.4 10^3/uL (0.5-4.7); ABSOLUTE MONOCYTES (AUTO) 1.3 10^3/uL (0.1-1.4); ABSOLUTE NEUT (AUTO) 5.3 10^3/uL (1.7-8.2); BASOPHILS % (AUTO) 0.8 % (0-2); EOSINOPHILS % (AUTO) 6.8 % (0-6); HEMATOCRIT 36.4 % (36.0-47.0); HEMOGLOBIN 11.5 g/dL (12.0-15.5); LYMPHOCYTES % (AUTO) 24.7 % (13-45); MEAN CORPUSCULAR HEMOGLOBIN 26.3 pg (27.0-33.4); MEAN CORPUSCULAR HGB CONC 31.5 g/dL (32.0-36.0); MEAN CORPUSCULAR VOLUME 84 fl (80-97); MONOCYTES % (AUTO) 13.4 % (3-13); PLATELET COUNT 277 10^3/uL (150-450); RED BLOOD COUNT 4.35 10^6/uL (3.72-5.28); RED CELL DISTRIBUTION WIDTH 19.2 % (11.5-14.0); SEGMENTED NEUTROPHILS % (AUTO) 54.3 % (42-78); TOTAL CELLS COUNTED % (AUTO) 100 %; WHITE BLOOD COUNT 9.9 10^3/uL (4.0-10.5)
[2018-02-20 05:49] LABS: ALBUMIN 3.6 g/dL (3.5-5.0); ANION GAP 18 (5-19); BLOOD UREA NITROGEN 50 mg/dL (7-20); CALCIUM 9.8 mg/dL (8.4-10.2); CARBON DIOXIDE 25 mmol/L (22-30); CHLORIDE 96 mmol/L (98-107); GLUCOSE 145 mg/dL (75-110); PHOSPHORUS 6.7 mg/dL (2.5-4.5); POTASSIUM 4.6 mmol/L (3.6-5.0); SODIUM 138.7 mmol/L (137-145)
[2018-02-20 05:50] LABS: ALANINE AMINOTRANSFERASE 20 U/L (9-52); ALBUMIN 3.5 g/dL (3.5-5.0); ALKALINE PHOSPHATASE 231 U/L (38-126); ANION GAP 15 (5-19); ASPARTATE AMINO TRANSFERASE 24 U/L (14-36); BILIRUBIN,DIRECT 1.4 mg/dL (0.0-0.4); BILIRUBIN,TOTAL 1.5 mg/dL (0.2-1.3); BLOOD UREA NITROGEN 52 mg/dL (7-20); CARBON DIOXIDE 27 mmol/L (22-30); CHLORIDE 97 mmol/L (98-107); GLUCOSE 155 mg/dL (75-110); POTASSIUM 4.7 mmol/L (3.6-5.0); SODIUM 139.4 mmol/L (137-145); TOTAL PROTEIN 7.2 g/dL (6.3-8.2)
--- NOTE | 2018-02-20 10:53 | PDOC PROGRESS REPORT ---
Subjective Progress Note for:: 02/20/18 Reason For Visit: Patient seen on dialysis. She is undergoing dialysis without any issues. Patient however awake but she does not respond to your questions. She has a dazed vacant look in on her face.According to her dialysis nurse Deedee the patient has been such even before she came on dialysis. Patient is able to hold both upper extremities against gravity for a short period of time. On checking with Deedee she had a pulse ox checked and it was 100% on 2 L of oxygen. Labs and medications were reviewed. Physical Exam Vital Signs: Temp Pulse Resp BP Pulse Ox 97.5 F 73 20 128/50 H 99 02/20/18 07:53 02/20/18 07:53 02/20/18 07:53 02/20/18 07:53 02/20/18 07:53 Intake & Output 02/19/18 02/20/18 02/21/18 06:59 06:59 06:59 Intake Total 966 222 Balance 966 222 Weight 104.4 kg 101.4 kg General appearance: PRESENT: no acute distress Respiratory exam: PRESENT: clear to auscultation charity. ABSENT: crackles, decreased breath sounds Cardiovascular exam: PRESENT: +S1, +S2, systolic murmur GI/Abdominal exam: PRESENT: normal bowel sounds, soft. ABSENT: organomegaly, tenderness Extremities exam: ABSENT: pedal edema Neurological exam: PRESENT: altered Skin exam: ABSENT: cyanosis, erythema, rash Results Laboratory Results: 02/20/18 04:59 02/20/18 04:59 02/20/18 02/20/18 02/20/18 04:59 04:59 04:59 WBC 9.9 RBC 4.35 Hgb 11.5 L Hct 36.4 MCV 84 MCH 26.3 L MCHC 31.5 L RDW 19.2 H Plt Count 277 Seg Neutrophils % 54.3 Lymphocytes % 24.7 Monocytes % 13.4 H Eosinophils % 6.8 H Basophils % 0.8 Absolute Neutrophils 5.3 Absolute Lymphocytes 2.4 Absolute Monocytes 1.3 Absolute Eosinophils 0.7 H Absolute Basophils 0.1 Sodium 138.7 139.4 Potassium 4.6 4.7 Chloride 96 L 97 L Carbon Dioxide 25 27 Anion Gap 18 15 BUN 50 H 52 H Creatinine 7.41 H 8.24 H Est GFR ( Amer) 7 L 6 L Est GFR (Non-Af Amer) 6 L 5 L Glucose 145 H 155 H Calcium 9.8 10.0 Phosphorus 6.7 H Total Bilirubin 1.5 H AST 24 ALT 20 Alkaline Phosphatase 231 H Total Protein 7.2 Albumin 3.6 3.5 01/30/18 01/30/18 01/30/18 22:08 22:08 22:08 Creatine Kinase 48 CK-MB (CK-2) 0.76 Troponin I 0.054 NT-Pro-B Natriuret Pep 72784 H 01/31/18 01/31/18 01/31/18 04:27 04:27 13:17 Creatine Kinase 47 72 CK-MB (CK-2) 0.96 Troponin I 0.068 NT-Pro-B Natriuret Pep 01/31/18 01/31/18 01/31/18 13:17 18:20 18:20 Creatine Kinase 58 CK-MB (CK-2) 1.53 1.59 Troponin I 0.079 0.081 NT-Pro-B Natriuret Pep 02/07/18 02/07/18 02/08/18 19:00 19:00 04:20 Creatine Kinase 376 H 348 H CK-MB (CK-2) 1.20 Troponin I 0.110 NT-Pro-B Natriuret Pep 02/08/18 02/08/18 02/08/18 04:20 08:47 11:45 Creatine Kinase 296 H CK-MB (CK-2) 1.20 1.10 Troponin I 0.811 1.090 NT-Pro-B Natriuret Pep Impressions: Gastric Emptying Nuclear Medicine 01/30/18 00:00 IMPRESSION: No emptying of the administered activity from the stomach over 2 hours. KUB X-Ray 02/02/18 11:00 IMPRESSION: THE TIP OF THE NASOGASTRIC TUBE IN THE STOMACH. Abdomen Ultrasound 02/03/18 00:00 IMPRESSION: Post cholecystectomy. Otherwise unremarkable study Abdomen/Pelvis CT 02/03/18 07:00 IMPRESSION: Small bowel obstruction with transition point in the midline pelvis. Head CT 02/08/18 00:00 IMPRESSION: No significant change. Chronic white matter changes. Focal encephalomalacia medial left occipital lobe EVIDENCE OF ACUTE STROKE: NO. Chest X-Ray 02/17/18 10:15 IMPRESSION: Stable enlarged cardiac silhouette without additional evidence of acute cardiopulmonary process. Assessment & Plan - Diagnosis (1) End stage chronic kidney disease Is this a current diagnosis for this admission?: Yes Plan: Patient currently undergoing dialysis which is being supervised to ensure safe and smooth procedure. Vital signs are stable. Erythropoietin has been ordered for her anemia. We will plan to remove 4-5 l during this dialysis. Discussed with the treating nurse . (2) Encephalopathy, unspecified Plan: Non-specific and non-focalizing. Review of her medication list she is on narcotics which could be a factor. Does not look like she has any focal deficits involving central nervous system. She is got morbid obesity and history of sleep apnea which could be factors. Discussed with the treating nurse that she will had to be observed carefully. (3) Hypertension Plan: Stable. Monitor. (4) Type 2 diabetes mellitus Qualifiers: Diabetes mellitus long-term insulin use: with buttermaker continuous churn use Diabetes mellitus complication status: with kidney complications Diabetes mellitus complication detail: with chronic kidney disease Chronic kidney disease stage: on chronic dialysis Qualified Code(s): E11.22 - Type 2 diabetes mellitus with diabetic chronic kidney disease; N18.6 - End stage renal disease; Z79.4 - buttermaker continuous churn (current) use of insulin; Z99.2 - Dependence on renal dialysis Is this a current diagnosis for this admission?: Yes Plan: As per hospitalist. Blood sugars have been running better. (5) Abnormal liver function tests Is this a current diagnosis for this admission?: Yes Plan: Improving. (6) Acute respiratory failure with hypoxia Is this a current diagnosis for this admission?: Yes Plan: Much improved. She is off the ventilator. (7) Diabetic gastroparesis Is this a current diagnosis for this admission?: Yes Plan: Continue on prokinetic agents that is dosed accordingly for her renal functions (8) Small bowel obstruction Is this a current diagnosis for this admission?: Yes Plan: Status post ex lap with reduction of internal hernia and lysis of adhesions and much improved.
[2018-02-20] MEDS: METOCLOPRAMIDE HCL INJ/PF 10 MG/2 ML SDV IV SCH ×2 (13:50→21:55)
[2018-02-20] MEDS: GUAIFENESIN SYRP 200 MG/10 ML UDC PO SCH ×4 (13:51→21:49)
--- NOTE | 2018-02-20 15:37 | PDOC PROGRESS REPORT ---
Subjective Progress Note for:: 02/20/18 Subjective:: had her dialysis today- she states she has a sore throat. called by nursing that she had some difficulty swallowing and requesting a speech/swallow eval. patient states her butt is sore from sitting so long. Reason For Visit: PERSISTENT VOMITING ? DIABETES Physical Exam Vital Signs: Temp Pulse Resp BP Pulse Ox 98.0 F 75 16 121/42 L 93 02/20/18 12:58 02/20/18 12:58 02/20/18 12:58 02/20/18 12:58 02/20/18 12:58 Intake & Output 02/19/18 02/20/18 02/21/18 06:59 06:59 06:59 Intake Total 966 222 Balance 966 222 Weight 230 lb 2.601 oz 223 lb 8.78 oz General appearance: PRESENT: no acute distress, obese Head exam: PRESENT: atraumatic, normocephalic Eye exam: PRESENT: EOMI, PERRLA. ABSENT: scleral icterus Ear exam: PRESENT: normal external ear exam Mouth exam: PRESENT: tongue midline Neck exam: ABSENT: tracheal deviation Respiratory exam: PRESENT: clear to auscultation charity, symmetrical Cardiovascular exam: PRESENT: +S1, +S2 Pulses: PRESENT: +1 pedal pulses bilateral GI/Abdominal exam: PRESENT: normal bowel sounds, soft. ABSENT: tenderness Extremities exam: PRESENT: pedal edema - mild bilaterally Musculoskeletal exam: PRESENT: tenderness Neurological exam: PRESENT: alert, awake, oriented to person, oriented to place, oriented to time, CN II-XII grossly intact Skin exam: PRESENT: dry, warm Results Laboratory Results: 02/20/18 04:59 02/20/18 04:59 02/20/18 02/20/18 02/20/18 04:59 04:59 04:59 WBC 9.9 RBC 4.35 Hgb 11.5 L Hct 36.4 MCV 84 MCH 26.3 L MCHC 31.5 L RDW 19.2 H Plt Count 277 Seg Neutrophils % 54.3 Lymphocytes % 24.7 Monocytes % 13.4 H Eosinophils % 6.8 H Basophils % 0.8 Absolute Neutrophils 5.3 Absolute Lymphocytes 2.4 Absolute Monocytes 1.3 Absolute Eosinophils 0.7 H Absolute Basophils 0.1 Sodium 138.7 139.4 Potassium 4.6 4.7 Chloride 96 L 97 L Carbon Dioxide 25 27 Anion Gap 18 15 BUN 50 H 52 H Creatinine 7.41 H 8.24 H Est GFR ( Amer) 7 L 6 L Est GFR (Non-Af Amer) 6 L 5 L Glucose 145 H 155 H Calcium 9.8 10.0 Phosphorus 6.7 H Total Bilirubin 1.5 H AST 24 ALT 20 Alkaline Phosphatase 231 H Total Protein 7.2 Albumin 3.6 3.5 01/30/18 01/30/18 01/30/18 22:08 22:08 22:08 Creatine Kinase 48 CK-MB (CK-2) 0.76 Troponin I 0.054 NT-Pro-B Natriuret Pep 87478 H 01/31/18 01/31/18 01/31/18 04:27 04:27 13:17 Creatine Kinase 47 72 CK-MB (CK-2) 0.96 Troponin I 0.068 NT-Pro-B Natriuret Pep 01/31/18 01/31/18 01/31/18 13:17 18:20 18:20 Creatine Kinase 58 CK-MB (CK-2) 1.53 1.59 Troponin I 0.079 0.081 NT-Pro-B Natriuret Pep 02/07/18 02/07/18 02/08/18 19:00 19:00 04:20 Creatine Kinase 376 H 348 H CK-MB (CK-2) 1.20 Troponin I 0.110 NT-Pro-B Natriuret Pep 02/08/18 02/08/18 02/08/18 04:20 08:47 11:45 Creatine Kinase 296 H CK-MB (CK-2) 1.20 1.10 Troponin I 0.811 1.090 NT-Pro-B Natriuret Pep Impressions: Gastric Emptying Nuclear Medicine 01/30/18 00:00 IMPRESSION: No emptying of the administered activity from the stomach over 2 hours. KUB X-Ray 02/02/18 11:00 IMPRESSION: THE TIP OF THE NASOGASTRIC TUBE IN THE STOMACH. Abdomen Ultrasound 02/03/18 00:00 IMPRESSION: Post cholecystectomy. Otherwise unremarkable study Abdomen/Pelvis CT 02/03/18 07:00 IMPRESSION: Small bowel obstruction with transition point in the midline pe lvis. Head CT 02/08/18 00:00 IMPRESSION: No significant change. Chronic white matter changes. Focal encephalomalacia medial left occipital lobe EVIDENCE OF ACUTE STROKE: NO. Chest X-Ray 02/17/18 10:15 IMPRESSION: Stable enlarged cardiac silhouette without additional evidence of acute cardiopulmonary process. Assessment & Plan - Diagnosis (1) Acute respiratory failure with hypoxia Is this a current diagnosis for this admission?: Yes (2) Diabetic gastroparesis Is this a current diagnosis for this admission?: Yes (3) Intra-abdominal adhesions Is this a current diagnosis for this admission?: Yes (4) Small bowel obstruction Is this a current diagnosis for this admission?: Yes (5) Anemia in chronic kidney disease Qualifiers: Chronic kidney disease stage: stage 3 (moderate) Qualified Code(s): N18.3 - Chronic kidney disease, stage 3 (moderate); D63.1 - Anemia in chronic kidney disease; D63.1 - Anemia in chronic kidney disease Is this a current diagnosis for this admission?: Yes (6) Encephalopathy Is this a current diagnosis for this admission?: Yes (7) End stage renal disease on dialysis Is this a current diagnosis for this admission?: Yes - Plan Summary Plan Summary: acute respiratory failure with hypoxia- resolving- she's still on some oxygen- advised nursing to wean as tolerated SBO - s/p surgery with lysis of adhesions- return of BS and doing well- on a diet now- surgery has signed off encephalopathy- per family patient is not herself and is having altered mental status- unclear as to what is causing her these symptoms- family would like transfer- there was concern over her mentation and need for neurology- there was a lot of back and forth about her being transferred or not. i did speak with [facility] and she's on the list and pending transfer. i think clinically she's improving as her mentation is better today- i will try and reach out to her family again about whether they want to do outpatient follow up instead of transfer at this time. she was choking on her liquids today- nursing requests evaluation- so speech/swallow has been ordered. ESRD on dialysis- had her dialysis today- 2.6L pulled off. c/w dialysis as scheduled.
[2018-02-20] MEDS: TRAZODONE HCL 50 MG TABLET PO SCH (21:49)
[2018-02-20] MEDS: FAMOTIDINE 20 MG TABLET NG SCH (21:49)
[2018-02-20] MEDS: INSULIN GLARGINE,HUM.REC.ANLOG 300 UNIT/3 ML INSULN.PEN SUBCUT SCH (21:49)
[2018-02-21] MEDS: METOPROLOL TARTRATE 25 MG TABLET NG SCH ×5 (00:41→23:50)
[2018-02-21] MEDS: HEPARIN SOD (PORCINE) 5,000 UNIT/ML 1 ML SYRINGE SUBCUT SCH ×3 (05:23→21:39)
[2018-02-21] MEDS: METOCLOPRAMIDE HCL INJ/PF 10 MG/2 ML SDV IV SCH ×2 (11:40→21:39)
[2018-02-21] MEDS: GUAIFENESIN SYRP 200 MG/10 ML UDC PO SCH ×4 (11:50→21:39)
[2018-02-21] MEDS ORDERED: DEXTROSE 5%-NORMAL SALINE 1,000 ML IV PRN (11:58)
[2018-02-21] MEDS: INSULIN LISPRO 100 UNIT/ML 3 ML VIAL SUBCUT PRN ×2 (14:22→17:33)
--- NOTE | 2018-02-21 15:50 | PDOC PROGRESS REPORT ---
Subjective Progress Note for:: 02/21/18 Subjective:: Patient was seen sitting up in her bed. At the time she could hardly speak because of the sore throat. She was however saying that she was done with being in the hospital and was going to leave. According the nurses taking care of her she is requiring help to get up from the chair to the bed. She is also slightly altered at night. When seeing her today she did not appear altered. Reason For Visit: PERSISTENT VOMITING ? DIABETES Physical Exam Vital Signs: Temp Pulse Resp BP Pulse Ox 98.2 F 84 16 148/61 H 100 02/21/18 12:07 02/21/18 14:00 02/21/18 12:07 02/21/18 12:07 02/21/18 12:07 Intake & Output 02/20/18 02/21/18 02/22/18 06:59 06:59 06:59 Intake Total 222 100 Output Total 2600 Balance 222 -2500 Weight 101.4 kg 101.3 kg General appearance: PRESENT: no acute distress, well-developed, well-nourished. ABSENT: cooperative Mouth exam: PRESENT: neck supple. ABSENT: dry mucosa Neck exam: ABSENT: JVD, tracheal deviation Respiratory exam: PRESENT: clear to auscultation [facility]. ABSENT: accessory muscle use, crackles, rales, rhonchi, wheezes Cardiovascular exam: PRESENT: +S1, +S2, systolic murmur GI/Abdominal exam: PRESENT: normal bowel sounds, soft. ABSENT: organomegaly, tenderness Extremities exam: ABSENT: pedal edema, +1 edema, +2 edema Neurological exam: PRESENT: alert, awake, oriented to person, oriented to place, oriented to time, oriented to situation Skin exam: PRESENT: dry, intact, warm Results Laboratory Results: 02/20/18 04:59 02/20/18 04:59 01/30/18 01/30/18 01/30/18 22:08 22:08 22:08 Creatine Kinase 48 CK-MB (CK-2) 0.76 Troponin I 0.054 NT-Pro-B Natriuret Pep 11662 H 01/31/18 01/31/18 01/31/18 04:27 04:27 13:17 Creatine Kinase 47 72 CK-MB (CK-2) 0.96 Troponin I 0.068 NT-Pro-B Natriuret Pep 01/31/18 01/31/18 01/31/18 13:17 18:20 18:20 Creatine Kinase 58 CK-MB (CK-2) 1.53 1.59 Troponin I 0.079 0.081 NT-Pro-B Natriuret Pep 02/07/18 02/07/18 02/08/18 19:00 19:00 04:20 Creatine Kinase 376 H 348 H CK-MB (CK-2) 1.20 Troponin I 0.110 NT-Pro-B Natriuret Pep 02/08/18 02/08/18 02/08/18 04:20 08:47 11:45 Creatine Kinase 296 H CK-MB (CK-2) 1.20 1.10 Troponin I 0.811 1.090 NT-Pro-B Natriuret Pep Impressions: Gastric Emptying Nuclear Medicine 01/30/18 00:00 IMPRESSION: No emptying of the administered activity from the stomach over 2 hours. KUB X-Ray 02/02/18 11:00 IMPRESSION: THE TIP OF THE NASOGASTRIC TUBE IN THE STOMACH. Abdomen Ultrasound 02/03/18 00:00 IMPRESSION: Post cholecystectomy. Otherwise unremarkable study Abdomen/Pelvis CT 02/03/18 07:00 IMPRESSION: Small bowel obstruction with transition point in the midline pelvis. Head CT 02/08/18 00:00 IMPRESSION: No significant change. Chronic white matter changes. Focal encep halomalacia medial left occipital lobe EVIDENCE OF ACUTE STROKE: NO. Chest X-Ray 02/17/18 10:15 IMPRESSION: Stable enlarged cardiac silhouette without additional evidence of acute cardiopulmonary process. Assessment & Plan - Diagnosis (1) End stage chronic kidney disease Is this a current diagnosis for this admission?: Yes Plan: will look to arrange for dialysis tomorrow, if she does not got AMA from the hospital. It was discussed with her that it is not recommended to leave the against medical advice. (2) Encephalopathy, unspecified Plan: could be due to CO2 retention for undiagnosed sleep apnea. Looks to be happening mostly when she sleeps. Appears to be more with it when she is awake (3) Anemia in chronic kidney disease Qualifiers: Chronic kidney disease stage: stage 3 (moderate) Qualified Code(s): N18.3 - Chronic kidney disease, stage 3 (moderate); D63.1 - Anemia in chronic kidney disease; D63.1 - Anemia in chronic kidney disease Is this a current diagnosis for this admission?: Yes Plan: epogen currently on hold with a hemoglobin in the 11s (4) Diabetic gastroparesis Is this a current diagnosis for this admission?: Yes Plan: on reglan (5) CHF (congestive heart failure) Is this a current diagnosis for this admission?: Yes Plan: stable (6) Hypertension Plan: currently controlled (7) Abnormal liver function tests Is this a current diagnosis for this admission?: Yes Plan: improving (8) Acute respiratory failure with hypoxia Is this a current diagnosis for this admission?: Yes Plan: improved, no longer intubated and was currently off of oxygen
--- NOTE | 2018-02-21 18:51 | PDOC PROGRESS REPORT ---
Subjective Progress Note for:: 02/21/18 Subjective:: Saw patient this morning and later this evening. Spoke with daughter at bedside this evening about her care. Daughter agrees with me that her mentation is better but still concerned about her slowed mentation. I discussed about further imaging and starting such as EEG and MRI and daughter wants that done. Patient also tells me that when her daughter that she wants to go home now. Daughter convince patient to stay. Discussed with daughter about idea of trans arnaud versus going to short-term rehab and daughter agrees to not transfer and go for short-term rehab. Reason For Visit: PERSISTENT VOMITING ? DIABETES Physical Exam Vital Signs: Temp Pulse Resp BP Pulse Ox 97.8 F 80 16 141/51 H 94 02/21/18 15:38 02/21/18 15:38 02/21/18 15:38 02/21/18 15:38 02/21/18 15:38 Intake & Output 02/20/18 02/21/18 02/22/18 06:59 06:59 06:59 Intake Total 222 100 150 Output Total 2600 Balance 222 -2500 150 Weight 223 lb 8.78 oz 223 lb 5.252 oz General appearance: PRESENT: no acute distress, obese, other - whispers and speaks softly Head exam: PRESENT: atraumatic, normocephalic Eye exam: PRESENT: EOMI, PERRLA. ABSENT: scleral icterus Ear exam: PRESENT: normal external ear exam Mouth exam: PRESENT: tongue midline Neck exam: ABSENT: tracheal deviation Respiratory exam: PRESENT: decreased breath sounds - bilaterally- mostly lower bases, symmetrical Cardiovascular exam: PRESENT: +S1, +S2 Pulses: PRESENT: +1 pedal pulses bilateral GI/Abdominal exam: PRESENT: normal bowel sounds, soft. ABSENT: tenderness Neurological exam: PRESENT: alert, awake, oriented to person, oriented to place, oriented to time, oriented to situation, CN II-XII grossly intact, other - whispers due to throat pain she states Skin exam: PRESENT: dry, warm Results Laboratory Results: 02/20/18 04:59 02/20/18 04:59 01/30/18 01/30/18 01/30/18 22:08 22:08 22:08 Creatine Kinase 48 CK-MB (CK-2) 0.76 Troponin I 0.054 NT-Pro-B Natriuret Pep 26913 H 01/31/18 01/31/18 01/31/18 04:27 04:27 13:17 Creatine Kinase 47 72 CK-MB (CK-2) 0.96 Troponin I 0.068 NT-Pro-B Natriuret Pep 01/31/18 01/31/18 01/31/18 13:17 18:20 18:20 Creatine Kinase 58 CK-MB (CK-2) 1.53 1.59 Troponin I 0.079 0.081 NT-Pro-B Natriuret Pep 02/07/18 02/07/18 02/08/18 19:00 19:00 04:20 Creatine Kinase 376 H 348 H CK-MB (CK-2) 1.20 Troponin I 0.110 NT-Pro-B Natriuret Pep 02/08/18 02/08/18 02/08/18 04:20 08:47 11:45 Creatine Kinase 296 H CK-MB (CK-2) 1.20 1.10 Troponin I 0.811 1.090 NT-Pro-B Natriuret Pep Impressions: Gastric Emptying Nuclear Medicine 01/30/18 00:00 IMPRESSION: No emptying of the administered activity from the stomach over 2 hours. KUB X-Ray 02/02/18 11:00 IMPRESSION: THE TIP OF THE NASOGASTRIC TUBE IN THE STOMACH. Abdomen Ultrasound 02/03/18 00:00 IMPRESSION: Post cholecystectomy. Otherwise unremarkable study Abdomen/Pelvis CT 02/03/18 07:00 IMPRESSION: Small bowel obstruction with transition point in the midline pelvis. Head CT 02/08/18 00:00 IMPRESSION: No significant change. Chronic white matter changes. Focal encephalomalacia medial left occipital lobe EVIDENCE OF ACUTE STROKE: NO. Chest X-Ray 02/17/18 10:15 IMPRESSION: Stable enlarged cardiac silhouette without additional evidence of acute cardiopulmonary process. Assessment & Plan - Diagnosis (1) Acute respiratory failure with hypoxia Is this a current diagnosis for this admission?: Yes (2) Diabetic gastroparesis Is this a current diagnosis for this admission?: Yes (3) Intra-abdominal adhesions Is this a current diagnosis for this admission?: Yes (4) Small bowel obstruction Is this a current diagnosis for this admission?: Yes (5) Anemia in chronic kidney disease Qualifiers: Chronic kidney disease stage: stage 3 (moderate) Qualified Code(s): N18.3 - Chronic kidney disease, stage 3 (moderate); D63.1 - Anemia in chronic kidney disease; D63.1 - Anemia in chronic kidney disease Is this a current diagnosis for this admission?: Yes (6) Encephalopathy Is this a current diagnosis for this admission?: Yes (7) End stage renal disease on dialysis Is this a current diagnosis for this admission?: Yes (8) Dysphagia Is this a current diagnosis for this admission?: Yes - Plan Summary Plan Summary: acute respiratory failure with hypoxia- resolved almost- some oxygen- advised nursing to wean as tolerated SBO - s/p surgery with lysis of adhesions- return of BS and doing well- on a diet now- surgery has signed off encephalopathy- per family patient is not herself and is having altered mental status- unclear as to what is causing her these symptoms-family had requested transfer to another facility with possible neurology consult. In the last 3 days that is all patient she has improved with her orientation but continues to have some slow mentation. I spoke with daughter Dariel today at bedside. She admits that patient is doing better with her orientation but still has slow mentation. I offered her MRI and EEG of the brain to rule out any other causes. Patients daughter would like these testing done. I also asked her if she wants to continue the idea of transfer versus going to a short-term rehab facility. Dariel states that at this time they rather not get transfer and would like to go to short-term rehab. She has been on the list for transfer up with [facility]. dysphagia-she failed her swallow screen and I spoke with speech and swallow eval and they recommend VFSS. She is planning to get that tomorrow. ESRD on dialysis- c/w dialysis as scheduled. Disposition-we will have to speak with case management tomorrow about possible discharge to short-term rehab and may be in the memory unit. Will order MRI of brain and EEG tomorrow.
[2018-02-21] MEDS: FAMOTIDINE 20 MG TABLET NG SCH (21:39)
[2018-02-21] MEDS: TRAZODONE HCL 50 MG TABLET PO SCH (21:39)
[2018-02-21] MEDS: INSULIN GLARGINE,HUM.REC.ANLOG 300 UNIT/3 ML INSULN.PEN SUBCUT SCH (21:43)
[2018-02-22] MEDS: METOPROLOL TARTRATE 25 MG TABLET NG SCH ×2 (06:01→13:35)
[2018-02-22] MEDS: HEPARIN SOD (PORCINE) 5,000 UNIT/ML 1 ML SYRINGE SUBCUT SCH ×3 (06:01→22:46)
[2018-02-22 06:50] LABS: HEMATOCRIT 40.3 % (36.0-47.0); HEMOGLOBIN 13.1 g/dL (12.0-15.5); MEAN CORPUSCULAR HEMOGLOBIN 27.3 pg (27.0-33.4); MEAN CORPUSCULAR HGB CONC 32.5 g/dL (32.0-36.0); MEAN CORPUSCULAR VOLUME 84 fl (80-97); PLATELET COUNT 256 10^3/uL (150-450); RED BLOOD COUNT 4.81 10^6/uL (3.72-5.28); RED CELL DISTRIBUTION WIDTH 20.3 % (11.5-14.0); WHITE BLOOD COUNT 8.1 10^3/uL (4.0-10.5)
[2018-02-22 07:12] LABS: ABSOLUTE LYMPHOCYTES# (MANUAL) 1.8 10^3/uL (0.5-4.7); ABSOLUTE MONOCYTES # (MANUAL) 1.1 10^3/uL (0.1-1.4); ABSOLUTE NEUTROPHILS# (MANUAL) 5.1 10^3/uL (1.7-8.2); BASOPHILS % (MANUAL) 0 % (0-2); EOSINOPHILS % (MANUAL) 2 % (0-6); LYMPHOCYTES % (MANUAL) 22 % (13-45); MONOCYTES % (MANUAL) 13 % (3-13); SEGMENTED NEUTROPHILS % (MAN) 63 % (42-78); TOTAL CELLS COUNTED 100
[2018-02-22 07:13] LABS: ANISOCYTOSIS 2+; PLATELET CLUMPS PRESENT; PLATELET COMMENT ADEQUATE
[2018-02-22] MEDS: GUAIFENESIN SYRP 200 MG/10 ML UDC PO SCH ×4 (10:20→22:46)
[2018-02-22 10:36] LABS: ALANINE AMINOTRANSFERASE 16 U/L (9-52); ALBUMIN 4.3 g/dL (3.5-5.0); ALKALINE PHOSPHATASE 250 U/L (38-126); ANION GAP 12 (5-19); ASPARTATE AMINO TRANSFERASE 32 U/L (14-36); BILIRUBIN,DIRECT 1.5 mg/dL (0.0-0.4); BILIRUBIN,TOTAL 1.7 mg/dL (0.2-1.3); BLOOD UREA NITROGEN 43 mg/dL (7-20); CALCIUM 9.7 mg/dL (8.4-10.2); CARBON DIOXIDE 31 mmol/L (22-30); CHLORIDE 97 mmol/L (98-107); GLUCOSE 163 mg/dL (75-110); POTASSIUM 4.2 mmol/L (3.6-5.0); SODIUM 140.2 mmol/L (137-145); TOTAL PROTEIN 8.2 g/dL (6.3-8.2)
[2018-02-22] MEDS: METOCLOPRAMIDE HCL INJ/PF 10 MG/2 ML SDV IV SCH (13:36)
[2018-02-22] MEDS: INSULIN LISPRO 100 UNIT/ML 3 ML VIAL SUBCUT PRN ×2 (14:13→22:55)
[2018-02-22] MEDS ORDERED: OXYCODONE HCL IR 5 MG TABLET PO PRN (14:52)
[2018-02-22] MEDS: METOCLOPRAMIDE HCL 10 MG TABLET PO SCH (15:53)
[2018-02-22] MEDS: CALCITRIOL 0.25 MCG CAPSULE PO SCH (15:53)
--- NOTE | 2018-02-22 20:30 | PDOC PROGRESS REPORT ---
Subjective Progress Note for:: 02/22/18 Reason For Visit: Patient seen today on dialysis. She is undergoing dialysis without any issues. She is awake and alert and responsive to questions. She admits to the fact that she has got a sore throat and she knows that it is from the endotracheal intubation that she had before. No complaints of any chest pain or shortness of breath. No history of any headaches. Movements are rather bit slow. Labs and medications were reviewed. Orders were reviewed with the treating dialysis nurse. Physical Exam Vital Signs: Temp Pulse Resp BP Pulse Ox 97.5 F 83 16 131/57 H 98 02/22/18 15:42 02/22/18 19:00 02/22/18 15:42 02/22/18 15:42 02/22/18 15:42 Intake & Output 02/21/18 02/22/18 02/23/18 06:59 06:59 06:59 Intake Total 100 150 237 Output Total 2600 Balance -2500 150 237 Weight 101.3 kg General appearance: PRESENT: no acute distress Respiratory exam: PRESENT: clear to auscultation charity. ABSENT: crackles, decr eased breath sounds Cardiovascular exam: PRESENT: +S1, +S2, systolic murmur GI/Abdominal exam: PRESENT: normal bowel sounds, soft. ABSENT: organomegaly, tenderness Extremities exam: ABSENT: pedal edema Neurological exam: PRESENT: alert, awake, oriented to person, oriented to place Skin exam: ABSENT: erythema, mottled, rash Results Laboratory Results: 02/22/18 06:33 02/22/18 09:57 02/22/18 02/22/18 02/22/18 06:33 06:33 09:57 WBC 8.1 RBC 4.81 Hgb 13.1 Hct 40.3 MCV 84 MCH 27.3 MCHC 32.5 RDW 20.3 H Plt Count 256 Seg Neutrophils % Not Reportable Lymphocytes % Not Reportable Monocytes % Not Reportable Eosinophils % Not Reportable Basophils % Not Reportable Absolute Neutrophils Not Reportable Absolute Lymphocytes Not Reportable Absolute Monocytes Not Reportable Absolute Eosinophils Not Reportable Absolute Basophils Not Reportable Sodium Cancelled 140.2 Potassium Cancelled 4.2 Chloride Cancelled 97 L Carbon Dioxide Cancelled 31 H Anion Gap Cancelled 12 BUN Cancelled 43 H Creatinine Cancelled 8.49 H Est GFR ( Amer) Cancelled 6 L Est GFR (Non-Af Amer) Cancelled 5 L Glucose Cancelled 163 H Calcium Cancelled 9.7 Magnesium Cancelled 2.4 H Total Bilirubin Cancelled 1.7 H AST Cancelled 32 ALT Cancelled 16 Alkaline Phosphatase Cancelled 250 H Total Protein Cancelled 8.2 Albumin Cancelled 4.3 PTH Intact 02/22/18 16:17 WBC RBC Hgb Hct MCV MCH MCHC RDW Plt Count Seg Neutrophils % Lymphocytes % Monocytes % Eosinophils % Basophils % Absolute Neutrophils Absolute Lymphocytes Absolute Monocytes Absolute Eosinophils Absolute Basophils Sodium Potassium Chloride Carbon Dioxide Anion Gap BUN Creatinine Est GFR ( Amer) Est GFR (Non-Af Amer) Glucose Calcium Magnesium Total Bilirubin AST ALT Alkaline Phosphatase Total Protein Albumin PTH Intact 140.0 H 01/30/18 01/30/18 01/30/18 22:08 22:08 22:08 Creatine Kinase 48 CK-MB (CK-2) 0.76 Troponin I 0.054 NT-Pro-B Natriuret Pep 94949 H 01/31/18 01/31/18 01/31/18 04:27 04:27 13:17 Creatine Kinase 47 72 CK-MB (CK-2) 0.96 Troponin I 0.068 NT-Pro-B Natriuret Pep 01/31/18 01/31/18 01/31/18 13:17 18:20 18:20 Creatine Kinase 58 CK-MB (CK-2) 1.53 1.59 Troponin I 0.079 0.081 NT-Pro-B Natriuret Pep 02/07/18 02/07/18 02/08/18 19:00 19:00 04:20 Creatine Kinase 376 H 348 H CK-MB (CK-2) 1.20 Troponin I 0.110 NT-Pro-B Natriuret Pep 02/08/18 02/08/18 02/08/18 04:20 08:47 11:45 Creatine Kinase 296 H CK-MB (CK-2) 1.20 1.10 Troponin I 0.811 1.090 NT-Pro-B Natriuret Pep Impressions: Gastric Emptying Nuclear Medicine 01/30/18 00:00 IMPRESSION: No emptying of the administered activity from the stomach over 2 hours. KUB X-Ray 02/02/18 11:00 IMPRESSION: THE TIP OF THE NASOGASTRIC TUBE IN THE STOMACH. Abdomen Ultrasound 02/03/18 00:00 IMPRESSION: Post cholecystectomy. Otherwise unremarkable study Abdomen/Pelvis CT 02/03/18 07:00 IMPRESSION: Small bowel obstruction with transition point in the midline pelvis. Head CT 02/08/18 00:00 IMPRESSION: No significant change. Chronic white matter changes. Focal encephalomalacia medial left occipital lobe EVIDENCE OF ACUTE STROKE: NO. Chest X-Ray 02/17/18 10:15 IMPRESSION: Stable enlarged cardiac silhouette without additional evidence of acute cardiopulmonary process. Assessment & Plan - Diagnosis (1) End stage chronic kidney disease Is this a current diagnosis for this admission?: Yes Plan: Patient currently undergoing dialysis which is being supervised to ensure safe and smooth procedure. Vital signs are stable. Erythropoietin has been ordered for her anemia. We will plan to remove 3-4 l during this dialysis. Discussed with the treating nurse . (2) Encephalopathy, unspecified Plan: Much improved.. (3) Hypertension Plan: Stable. Monitor. 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 Blood sugars have been running better. (5) Abnormal liver function tests Is this a current diagnosis for this admission?: Yes Plan: Improving. (6) Acute respiratory failure with hypoxia Is this a current diagnosis for this admission?: Yes Plan: Much improved. (7) Diabetic gastroparesis Is this a current diagnosis for this admission?: Yes Plan: Continue on prokinetic agents that is dosed accordingly for her renal functions (8) Small bowel obstruction Is this a current diagnosis for this admission?: Yes Plan: Status post ex lap with reduction of internal hernia and lysis of adhesions and much improved.
[2018-02-22] MEDS: METOPROLOL TARTRATE 25 MG TABLET PO SCH ×3 (22:04→23:06)
[2018-02-22] MEDS: FAMOTIDINE 20 MG TABLET PO SCH (22:46)
[2018-02-22] MEDS: TRAZODONE HCL 50 MG TABLET PO SCH (22:46)
[2018-02-22] MEDS: INSULIN GLARGINE,HUM.REC.ANLOG 300 UNIT/3 ML INSULN.PEN SUBCUT SCH (22:56)
[2018-02-23] MEDS: METOPROLOL TARTRATE 25 MG TABLET PO SCH ×3 (05:16→17:15)
[2018-02-23] MEDS: HEPARIN SOD (PORCINE) 5,000 UNIT/ML 1 ML SYRINGE SUBCUT SCH ×3 (05:17→21:21)
--- NOTE | 2018-02-23 07:12 | PROGRESS NOTE E ---
Progress Note NAME: MARIOLA GAR : 1960 AGE: 58Y DATE: 02/22/2018 ROOM: 320 SUBJECTIVE: The patient is currently sitting on the side of the bed. The patient is awake, alert, a little delayed, but appears to be completely oriented. The patient has been afebrile. Her blood pressure has been in acceptable range, and the patient does not voice any specific concerns at this time. REVIEW OF SYSTEMS: Rest of the review of systems is negative. MEDICATIONS: Medications have been reviewed. OBJECTIVE: GENERAL: The patient is a 58-year-old -[place] female who is awake, alert. She is oriented to person, place, time, and situation. She is a little delayed. She does not appear to be in any acute distress. VITAL SIGNS: Temperature is 98.2, pulse 85, respirations 16, blood pressure is 135/56, oxygen saturation is 98% on room air. SKIN: Warm, dry. No rash. She is not diaphoretic. HEENT: Pupils equal, round, reactive to light and accommodation. Conjunctiva is pink. There is no evidence of JVP. CARDIOVASCULAR SYSTEM: Heart is regular. There is no rub. CHEST: Clear, symmetrical, unlabored. ABDOMEN: Soft, nontender. BACK: No CVA tenderness or sacral edema. EXTREMITIES: No clubbing, cyanosis, or edema. DIAGNOSTICS: Hematology obtained on 02/22/2018: WBCs are 8.1, hemoglobin is 13.1, hematocrit is 40.3, platelet count is 256,000. Chemistry obtained on 02/22/2018: Sodium is 140, potassium 4.2, chloride is 97, carbon dioxide 31, BUN 43, creatinine is 8.49, glucose 163, calcium is 9.7, magnesium is 2.4, bilirubin is 1.7. AST 32, ALT is 16, Alk phos 220. Total protein 8.2, albumin 4.3. IMPRESSION AND PLAN: 1. ACUTE HYPOXEMIC RESPIRATORY FAILURE, APPEARS TO HAVE RESOLVED. 2. SMALL BOWEL OBSTRUCTION STATUS POST SURGERY WITH LYSIS OF ADHESIONS. Doing well. Tolerating a regular diet. Surgery signed off. 3. DYSPHAGIA. The patient had failed her swallow screen. She has been placed on a list for modified further dietary recommendations, according to that. 4. END-STAGE RENAL DISEASE WITH DIALYSIS DEPENDENCY. Continue as scheduled. 5. METABOLIC ENCEPHALOPATHY. Uncertain of the underlying etiology of this. MRI, EEG are pending. Will also add a PTH as I cannot see where one has historically been done. Appears the patient has probably had a parathyroidectomy given her scars, but uncertain if these receded. DISPOSITION: The patient is a FULL CODE. Pending patient's symptomatology and diagnostic findings, will re-evaluate in the a.m. The patient is waiting for a bed at [facility] for a neurological evaluation. Time spent on this followup including assessment, plan, physical examination, patient education, and review of records is 25 minutes. DICTATING PHYSICIAN: TONYA RODRIGUEZ NP [id number] PHY#: [id number] ID: [id number] JOB#: [id number] ACCT: [id number] cc: >
[2018-02-23] MEDS: METOCLOPRAMIDE HCL 10 MG TABLET PO SCH ×3 (07:58→15:45)
--- NOTE | 2018-02-23 09:41 | EEG PRO FEE REPORT ---
EEG INTERPRETATION PATIENT NAME: MARIOLA GAR ROOM#: 320 ORDER#: [id number] DATE OF STUDY: 02/22/2018 : 1960 REFERRING MD: ANJU OCASIO MEDICATIONS: Lopressor, Zofran, Oxycodone, Trazodone, Guaifenesin, Glargine, insulin, Reglan, DuoNeb, Benadryl, Pepcid History This is a 58 year old right handed woman admitted with persistent vomiting, diabetes, and is slow to respond. She has past medical history of congestive heart failure, [place], hypertension, sleep apnea, dialysis, cancer, hypercholesterolemia, Lupus, vena cava tumor, adrenal surgery, type II diabetes, hypothyroid, depression. This EEG is requested for encephalopathy. EEG Interpretation This EEG was recorded in the awake and minimal drowsy states. The awake EEG is characterized by a moderately organized background with a poorly developed but reactive posterior dominant rhythm of 7 Hz, up to 8 Hz at times. The remainder of the background consisted of a mix of theta and delta activity. FIRDA {frontal intermittent rhythmic delta activity} was present. Minimal drowsiness is characterized by mild slowing of the background rhythms. Photic stimulation resulted in no significant changes. There were no epileptiform abnormalities. The EKG showed a regular rhythm but some PVCs were noted. EEG Classification 1. Generalized background slowing 2. FIRDA 3. EKG - PVCs EEG Impression This EEG is abnormal. It is consistent with diffuse cerebral dysfunction. The EKG may require further investigation. INTERPRETING PHYSICIAN: TERRIE HARDIN M.D. /: MTEFYOCASTA TT: [id number] ID: [id number] /: [id number] TD: [id number] JOB: [id number] cc:Sangeeta FORD MD AVIJEET DUT > MTDD
--- NOTE | 2018-02-23 11:17 | ST Inp Modified Barium Swallow ---
Medical Diagnosis - Medical Diagnoses Medical Diagnosis Description & ICD-10 Code(s): acute respiratory failure In[place] [facility] [place] General Date: 02/23/18 - History History Obtained From: Other - EMR -: Medical - per EMR: caitlin admitted 01/30/18 with nausea, vomiting, and weakness. Prior mecial history includes end-stage renal disease, diabetes. Patient was intubated 02/03/18, extubated 02/01/18. Has not been able to pass nursing swallow screen since extubation. Was on a clear liquid diet, current is nectar liquids and puree solids per physician. Patient was seen at bedside 02/21/18, was seen to cough after all PO trials. Medications: Medications Reviewed Allergies: Refer to medical record - Subjective Current Nutritional Means: PO Current PO Diet: Pureed, Thickened liquids Current Symptoms: Coughing Pain: Patient reports, 0/5 - Objective Assessment: Upright, Left Lateral - Food Trials Food Trials Used: Thin liquids, Pureed, Regular The Patient: Required Assist - Assessment Labial Function: Within Normal Limits Lingual Function: Within Normal Limits Dentition: Partial Velo-Pharyngeal Function: Unremarkable Laryngeal Function: Weak Cough, weak voicing - Pharyngeal Stage Initiation of Pharyngeal Stage: Delayed Reflex Delay Time (seconds): 3 Decreased Laryngeal Elevation: No Reduced Velo-Pharyngeal Closure: no Reduced Pressure Generation: No Reduced Tongue Base Retraction: No Pre-Swallowing Pooling in Valleculae: Moderate Pre-Swallowing Pooling in Pyriforms: None Reduced Thyro-Hyiod Approximation: No Reduced Epiglottic Excursion: No Reduced Pharyngeal Peristalsis: No Post Swallow Residuals in Valleculae: None Post Swallow Residuals in Pyriforms: None - Impression/Summary Laryngeal Penetration: No Tracheal Aspiration: no Patient Presents With: Oral stage dysphagia - All oral movements were very slow and delayed, however, adequate range of motion was seen., Mild-Moderate Risk of Aspiration: Minimal - Recommendations Solid Diet Recommendations: Mechanical Soft, Ground Meat Liquid Diet Recommendations: Thin Strict Aspitarion Precautions: Yes Dysphagia Therapy with EMBEDDER: No Recommended Techniques: Fully Upright During Meal, Small Bites and Sips Supervision: requires assistance - Time Total Time: 20 Total Timed Minutes: 20
[2018-02-23] MEDS: GUAIFENESIN SYRP 200 MG/10 ML UDC PO SCH ×4 (11:20→21:20)
[2018-02-23] MEDS: CALCITRIOL 0.25 MCG CAPSULE PO SCH (11:20)
--- NOTE | 2018-02-23 11:23 | RADIOLOGY REPORT (SQ) ---
EXAM DESCRIPTION: REINIERIE SWALLOW COMPLETED DATE/TIME: 02/23/2018 10:17 am REASON FOR STUDY: coughing with PO trials E09.21 DRUG/CHEM DIABETES MELLITUS W DIABETIC NEPHROPATHY I42.0 DILATED CARDIOMYOPATHY COMPARISON: None. TECHNIQUE: Videofluoroscopic swallowing examination was performed in conjunction with speech patholo gy. Videofluoroscopic imaging was obtained and reviewed and these are the findings: RADIATION DOSE: FLUORO TIME 3.1 MINUTES 1 images saved to PACS. LIMITATIONS: Somewhat limited study due to patient positioning. FINDINGS: The patient was brought into the fluoro room and placed upright on a modified barium swall ow chair. The patient was then given multiple consistencies mixed with barium to swallow under live fluoroscopic video guidance. According to the Speech Pathologist there was no penetration or aspirat ion. Please refer to the speech pathology report for further details. IMPRESSION: NO EVIDENCE OF PENETRATION OR ASPIRATION.PLEASE SEE SPEECH PATHOLOGIST REPORT FOR OTHER FINDINGS AND RECOMMENDATIONS. COMMENT: None Quality ID [id number]: Final reports for procedures using fluoroscopy that document radiation exposure ivette breana, or exposure time and number of fluorographic images (if radiation exposure indices are not avail able) TECHNICAL DOCUMENTATION: JOB ID: [id number] [employer]- All Rights Reserved Reading location - IP/workstation name: [email or web address] [id number]
[2018-02-23] MEDS: INSULIN LISPRO 100 UNIT/ML 3 ML VIAL SUBCUT PRN ×2 (13:19→17:49)
--- NOTE | 2018-02-23 15:52 | PROGRESS NOTE E ---
Progress Note NAME: MARIOLA GAR : 1960 AGE: 58Y DATE: 02/23/2018 ROOM: 320 SUBJECTIVE: The patient is currently sitting on the side of the bed. The patient has returned from her swallow study, which she did okay with. Dietary recommendations have been made. The patient has had no reported episodes of vomiting nor diarrhea. The patient does have an odd affect. The patient does not voice any specific concerns at this time. REVIEW OF SYSTEMS: The rest of the review of systems is negative. MEDICATIONS: Medications have been reviewed. OBJECTIVE: GENERAL: The patient is a 58-year-old -[place] female who is awake, alert. She is oriented to place and time, does not appear to be distressed. VITAL SIGNS: As follows: Temperature is 97.7, pulse 86, respirations 15, blood pressure is 121/55, oxygen saturation is 96% on room air. SKIN: Warm and dry. No rash, not diaphoretic. HEENT: Pupils are equal, round, and reactive to light and accommodation. Conjunctivae pink. No evidence of JVP. CARDIOVASCULAR: Heart is regular. No rub. CHEST: Clear, symmetrical, unlabored. ABDOMEN: Soft, nontender. EXTREMITIES: No clubbing, cyanosis, edema. PSYCHIATRIC: The patient has an odd affect. DIAGNOSTICS: Lab values are as follows. Hematology obtained on 02/22/2018: WBC is 8.1, hemoglobin 13.1, hematocrit 40.3, platelet count is 256,000. Chemistry obtained on 02/22/2018: Sodium is 140, potassium 4.2, chloride 97, carbon dioxide 31, BUN 43, creatinine 8.49, glucose 163, calcium is 9.7, magnesium is 2.4. IMPRESSION AND PLAN: 1. ACUTE HYPOXEMIC RESPIRATORY FAILURE. This appears to have resolved. 2. SMALL BOWEL OBSTRUCTION, STATUS POST SURGERY WITH LYSIS OF ADHESIONS. The patient is doing well, tolerating a diet. Surgery signed off. 3. DYSPHAGIA. The patient passed her swallow screen. Dietary recommendations have been made per findings on modified. 4. END-STAGE RENAL DISEASE WITH DIALYSIS DEPENDENCY. The patient will dialyze tomorrow. 5. METABOLIC ENCEPHALOPATHY. Currently awaiting MRI. Will follow. DISPOSITION: THE PATIENT IS A FULL CODE. Pending the patient's symptomatology and diagnostic findings, will re-evaluate in the a.m. The patient is waiting for a bed at [facility]. Time spent on this followup, including assessment/plan, physical examination, patient education, review of records, is 15 minutes. DICTATING PHYSICIAN: TONYA RODRIGUEZ NP [id number] PHY#: [id number] ID: [id number] JOB#: [id number] ACCT: [id number] cc: >
[2018-02-23] MEDS: FAMOTIDINE 20 MG TABLET PO SCH (21:20)
[2018-02-23] MEDS: TRAZODONE HCL 50 MG TABLET PO SCH (21:20)
[2018-02-23] MEDS: INSULIN GLARGINE,HUM.REC.ANLOG 300 UNIT/3 ML INSULN.PEN SUBCUT SCH (21:29)
[2018-02-24] MEDS: METOPROLOL TARTRATE 25 MG TABLET PO SCH ×4 (04:42→21:23)
[2018-02-24] MEDS: HEPARIN SOD (PORCINE) 5,000 UNIT/ML 1 ML SYRINGE SUBCUT SCH ×3 (05:48→21:29)
[2018-02-24] MEDS: METOCLOPRAMIDE HCL 10 MG TABLET PO SCH ×3 (08:35→17:57)
[2018-02-24] MEDS: GUAIFENESIN SYRP 200 MG/10 ML UDC PO SCH ×5 (11:08→21:58)
[2018-02-24 13:38] LABS: HEMATOCRIT 39.4 % (36.0-47.0); HEMOGLOBIN 12.8 g/dL (12.0-15.5); MEAN CORPUSCULAR HEMOGLOBIN 27.2 pg (27.0-33.4); MEAN CORPUSCULAR HGB CONC 32.4 g/dL (32.0-36.0); MEAN CORPUSCULAR VOLUME 84 fl (80-97); PLATELET COUNT 262 10^3/uL (150-450); RED BLOOD COUNT 4.69 10^6/uL (3.72-5.28); RED CELL DISTRIBUTION WIDTH 20.5 % (11.5-14.0); WHITE BLOOD COUNT 7.4 10^3/uL (4.0-10.5)
[2018-02-24 14:01] LABS: ANION GAP 18 (5-19); BLOOD UREA NITROGEN 34 mg/dL (7-20); CARBON DIOXIDE 25 mmol/L (22-30); CHLORIDE 95 mmol/L (98-107); GLUCOSE 180 mg/dL (75-110); POTASSIUM 3.8 mmol/L (3.6-5.0); SODIUM 138.1 mmol/L (137-145)
--- NOTE | 2018-02-24 17:19 | PDOC PROGRESS REPORT ---
Subjective Progress Note for:: 02/24/18 Reason For Visit: Patient seen today while she is undergoing dialysis. She looks very comfortable. She denies any history of headaches, chest pain shortness of breath. Labs and medications were reviewed. Dialysis orders were reviewed with the treating dialysis nurse. Physical Exam Vital Signs: Temp Pulse Resp BP Pulse Ox 98.5 F 89 17 113/49 L 98 02/24/18 10:40 02/24/18 14:00 02/24/18 10:40 02/24/18 10:40 02/24/18 10:40 Intake & Output 02/23/18 02/24/18 02/25/18 06:59 06:59 06:59 Intake Total 357 337 237 Output Total 3000 Balance -2643 337 237 Weight 97.8 kg Cardiovascular exam: PRESENT: +S1, +S2, systolic murmur GI/Abdominal exam: PRESENT: normal bowel sounds, soft. ABSENT: organomegaly, tenderness Results Laboratory Results: 02/24/18 13:00 02/24/18 13:00 02/24/18 02/24/18 13:00 13:00 WBC 7.4 RBC 4.69 Hgb 12.8 Hct 39.4 MCV 84 MCH 27.2 MCHC 32.4 RDW 20.5 H Plt Count 262 Sodium 138.1 Potassium 3.8 Chloride 95 L Carbon Dioxide 25 Anion Gap 18 BUN 34 H Creatinine 8.52 H Est GFR ( Amer) 6 L Est GFR (Non-Af Amer) 5 L Glucose 180 H Calcium 10.0 01/30/18 01/30/18 01/30/18 22:08 22:08 22:08 Creatine Kinase 48 CK-MB (CK-2) 0.76 Troponin I 0.054 NT-Pro-B Natriuret Pep 84263 H 01/31/18 01/31/18 01/31/18 04:27 04:27 13:17 Creatine Kinase 47 72 CK-MB (CK-2) 0.96 Troponin I 0.068 NT-Pro-B Natriuret Pep 01/31/18 01/31/18 01/31/18 13:17 18:20 18:20 Creatine Kinase 58 CK-MB (CK-2) 1.53 1.59 Troponin I 0.079 0.081 NT-Pro-B Natriuret Pep 12/02/07/18 02/08/18 19:00 19:00 04:20 Creatine Kinase 376 H 348 H CK-MB (CK-2) 1.20 Troponin I 0.110 NT-Pro-B Natriuret Pep 02/08/18 02/08/18 02/08/18 04:20 08:47 11:45 Creatine Kinase 296 H CK-MB (CK-2) 1.20 1.10 Troponin I 0.811 1.090 NT-Pro-B Natriuret Pep Impressions: Gastric Emptying Nuclear Medicine 01/30/18 00:00 IMPRESSION: No emptying of the administered activity from the stomach over 2 hours. KUB X-Ray 02/02/18 11:00 IMPRESSION: THE TIP OF THE NASOGASTRIC TUBE IN THE STOMACH. Abdomen Ultrasound 02/03/18 00:00 IMPRESSION: Post cholecystectomy. Otherwise unremarkable study Abdomen/Pelvis CT 02/03/18 07:00 IMPRESSION: Small bowel obstruction with transition point in the midline pelvis. Head CT 02/08/18 00:00 IMPRESSION: No significant change. Chronic white matter changes. Focal encep halomalacia medial left occipital lobe EVIDENCE OF ACUTE STROKE: NO. Chest X-Ray 02/17/18 10:15 IMPRESSION: Stable enlarged cardiac silhouette without additional evidence of acute cardiopulmonary process. Modified Barium Swallow 02/23/18 00:00 IMPRESSION: NO EVIDENCE OF PENETRATION OR ASPIRATION.PLEASE SEE SPEECH PATHOLOGIST REPORT FOR OTHER FINDINGS AND RECOMMENDATIONS. 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
--- NOTE | 2018-02-24 20:39 | RADIOLOGY REPORT (SQ) ---
EXAM DESCRIPTION: MRI HEAD WITHOUT COMPLETED DATE/TIME: 02/24/2018 6:56 pm REASON FOR STUDY: confusion/ams E09.21 DRUG/CHEM DIABETES MELLITUS W DIABETIC NEPHROPATHY I42.0 DI LATED CARDIOMYOPATHY COMPARISON: None. TECHNIQUE: Multiplanar imaging includes non-contrasted T1, T2, FLAIR, and diffusion with ADC map seq uences. Images stored on PACS. LIMITATIONS: None. FINDINGS: ANATOMY: No anomalies. Normal vascular flow voids. Pituitary fossa normal. CSF SPACES: Normal in size and contour. No hemorrhage. CEREBRUM: Sulci and gyri normal in size and contour. Microvascular ischemic changes. No evidence of hemorrhage, mass, or extraaxial fluid collection. Old left occipital cortical infarct with dystroph ic calcification. POSTERIOR FOSSA: No signal alteration. No hemorrhage. No edema, masses or mass effect. Internal carlos tory canals, cerebello-pontine angles, mastoids normal. DIFFUSION IMAGING: Negative for acute or sub-acute infarction. ORBITS: No masses. Globes normal. PARANASAL SINUSES: No fluid levels. Mucosa normal. OTHER: No other significant finding. IMPRESSION: Microvascular ischemia. 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 No acute intracranial proces s. EVIDENCE OF ACUTE STROKE: NO. TECHNICAL DOCUMENTATION: JOB ID: [id number] [employer]- All Rights Reserved Reading location - IP/workstation name: [email or web address]
[2018-02-24] MEDS: CALCITRIOL 0.25 MCG CAPSULE PO SCH (21:24)
[2018-02-24] MEDS: TRAZODONE HCL 50 MG TABLET PO SCH (21:29)
[2018-02-24] MEDS: FAMOTIDINE 20 MG TABLET PO SCH (21:29)
[2018-02-24] MEDS: INSULIN GLARGINE,HUM.REC.ANLOG 300 UNIT/3 ML INSULN.PEN SUBCUT SCH (21:55)
[2018-02-25] MEDS: METOPROLOL TARTRATE 25 MG TABLET PO SCH ×2 (00:25→05:27)
[2018-02-25] MEDS: HEPARIN SOD (PORCINE) 5,000 UNIT/ML 1 ML SYRINGE SUBCUT SCH ×3 (05:31→21:55)
--- NOTE | 2018-02-25 09:32 | PROGRESS NOTE E ---
Progress Note NAME: MARIOLA GAR : 1960 AGE: 58Y DATE: 02/24/2018 ROOM: 425 SUBJECTIVE: The patient was seen on dialysis. The patient actually had what appeared to be a near syncopal episode that she quickly recovered from while in the dialysis unit. The patient returned to her baseline mental status. There were no reported episodes of vomiting or diarrhea. No pain. The patient has been afebrile. Blood pressure has been in good range. The patient is voiding no other concerns at this time. MEDICATIONS: Reviewed. OBJECTIVE: GENERAL: The patient is a 58-year-old -[place] female who is awake and alert. She is oriented, but just a little delayed. Does not appear to be in any acute distress. VITAL SIGNS: Temperature 98.5, pulse 95, respirations 17, blood pressure 113/49, oxygen saturation 98% on room air. SKIN: Warm and dry. No rashes, not diaphoretic. HEENT: Pupils are reactive. Conjunctivae pink. No JVP. CVS: Heart is regular rate and rhythm without murmur or rub. CHEST: Clear, symmetrical, unlabored. ABDOMEN: Soft, nontender. EXTREMITIES: There is no edema. PSYCHIATRIC: The patient has an odd, flat affect which is inconsistent. DIAGNOSTICS/LAB VALUES: Hematology obtained on 02/24/2018: WBC 7.4, hemoglobin 12.8, hematocrit 34.9, platelet count 272,000. Chemistry obtained on 02/24/2018: Sodium 138, potassium 3.8, chloride 95, carbon dioxide 25, BUN 34, creatinine 8.52, glucose 180, calcium 10. ASSESSMENT AND PLAN: 1. ACUTE HYPOXEMIC RESPIRATORY FAILURE. This appears to have resolved. 2. SMALL BOWEL OBSTRUCTION. Status post lysis of adhesions. The patient is tolerating a diet and Surgery has signed off. 3. DYSPHAGIA. The patient passed her swallow screen. Dietary recommendations have been made. 4. END-STAGE RENAL DISEASE. Dialysis dependency. The patient will be dialyzed tomorrow. 5. METABOLIC ENCEPHALOPATHY. Currently awaiting MRI. Will follow. DISPOSITION: The patient is a full code. Pending the patient's symptomatology and diagnostic findings, will reevaluate in the a.m. The patient is waiting for a bed at [facility], where the patient's family has agreed for her to go to rehab if her MRI is negative. Total time spent on this followup including physical examination, patient education, and review of records 15 minutes. DICTATING PHYSICIAN: TONYA RODRIGUEZ NP [id number] PHY#: [id number] ID: [id number] JOB#: [id number] ACCT: [id number] cc: >
[2018-02-25] MEDS ORDERED: METOPROLOL SUCCINATE 50 MG TAB.SR.24H PO SCH (10:00)
[2018-02-25] MEDS: CALCITRIOL 0.25 MCG CAPSULE PO SCH (10:31)
[2018-02-25] MEDS: METOCLOPRAMIDE HCL 10 MG TABLET PO SCH ×3 (10:31→17:26)
[2018-02-25] MEDS: INSULIN LISPRO 100 UNIT/ML 3 ML VIAL SUBCUT PRN (12:47)
--- NOTE | 2018-02-25 13:12 | PROGRESS NOTE E ---
Progress Note NAME: MARIOLA GAR : 1960 AGE: 58Y DATE: 02/25/2018 ROOM: 425 SUBJECTIVE: The patient is lying in bed. The patient is awake, alert. She states she feels okay today. The patient denies any symptoms. The patient speaks mainly in whispers. There are no specific concerns voiced at this time. I did discuss with the patient the MRI results and the patient this time is eager to go to [facility]. I know this has waxed and waned throughout her stay. No other concerns voiced at this time. REVIEW OF SYSTEMS: The rest of the review of systems is negative. MEDICATIONS: Medications have been reviewed. OBJECTIVE: GENERAL: The patient is a 58-year-old -Japanese female who is awake, alert. She is oriented to person, place, time. She does not appear to be distressed. VITAL SIGNS: Temperature is 98.7, pulse 104, respirations 17, blood pressure is 125/69, oxygen saturation is 97% on room air. SKIN: Warm and dry. No rash. She is not diaphoretic. HEENT: Pupils are reactive. Conjunctiva is pink. There is no evidence of JVP. CARDIOVASCULAR: Heart is regular. There is no rub. CHEST: Clear, symmetrical, unlabored. ABDOMEN: Soft, nontender. EXTREMITIES: No clubbing, cyanosis or edema. PSYCHIATRIC: The patient has a very odd affect. DIAGNOSTICS: Lab values are as follows: Hematology obtained on 02/24/2018: WBC's are 7.4, hemoglobin is 12.8, hematocrit is 31.8, platelet count is 262,000. Chemistry obtained on 02/24/2018: Sodium is 138, potassium 1.8, chloride 95, carbon dioxide is 25, BUN 34, creatinine is 0.52, glucose 180, calcium is 10. IMPRESSION AND PLAN: 1. ACUTE HYPOXEMIC RESPIRATORY FAILURE. This has resolved. 2. SMALL BOWEL OBSTRUCTION STATUS POST OPERATIVE REPAIR WITH LYSIS OF ADHESIONS. The patient is doing quite well. Tolerating a diet. Surgery signed off. 3. DYSPHAGIA. The patient has passed her swallows for any dietary. Recommendations have been made per findings on her modified study. 4. END STAGE RENAL DISEASE WITH DIALYSIS DEPENDENCY. The patient will be dialyzed tomorrow. 5. METABOLIC ENCEPHALOPATHY. The patients MRI does show cerebrovascular disease, previous CVA. The patient's EEG did show a generalized slowing. Will go ahead and stop the patient's trazodone to ensure there is no pharmacological contribution to this. The patient's PTH was elevated. Unsure of the status of her parathyroid but calcium is controlled. 6. CEREBROVASCULAR DISEASE. DISPOSITION: THE PATIENT IS A FULL CODE. Pending the patient's symptomatology and diagnostic findings, will re-evaluate in the a.m. The patient is waiting for a bed at [facility]. Time spent on this followup, including assessment, plan, physical examination, patient education, review of records, is 15 minutes. DICTATING PHYSICIAN: TONYA RODRIGUEZ NP [id number] PHY#: [id number] ID: [id number] JOB#: [id number] ACCT: [id number] cc: >
[2018-02-25] MEDS: FAMOTIDINE 20 MG TABLET PO SCH (21:54)
[2018-02-25] MEDS: METOPROLOL SUCCINATE 50 MG TAB.SR.24H PO SCH (21:54)
[2018-02-25] MEDS: INSULIN GLARGINE,HUM.REC.ANLOG 300 UNIT/3 ML INSULN.PEN SUBCUT SCH (21:55)
[2018-02-26] MEDS: ACETAMINOPHEN 325 MG TABLET PO PRN (01:07)
[2018-02-26] MEDS: HEPARIN SOD (PORCINE) 5,000 UNIT/ML 1 ML SYRINGE SUBCUT SCH ×3 (05:25→22:13)
[2018-02-26] MEDS: METOCLOPRAMIDE HCL 10 MG TABLET PO SCH ×3 (08:17→16:52)
[2018-02-26] MEDS: CALCITRIOL 0.25 MCG CAPSULE PO SCH ×2 (10:07→10:08)
[2018-02-26] MEDS: METOPROLOL SUCCINATE 50 MG TAB.SR.24H PO SCH ×2 (10:07→22:13)
--- NOTE | 2018-02-26 15:01 | PDOC TRANSFER SUMMARY ---
General - Admit/Disc Date/PCP Admission Date/Primary Care Provider: 01/30/18 18:08 ROBERTO SALDANA MD Discharge Date: 02/27/18 - Discharge Diagnosis (1) Small bowel obstruction Is this a current diagnosis for this admission?: Yes (2) Acute respiratory failure with hypoxia Is this a current diagnosis for this admission?: Yes (3) Diabetes mellitus type 2 in obese Is this a current diagnosis for this admission?: Yes (4) Diabetic gastroparesis Is this a current diagnosis for this admission?: Yes (5) Diastolic dysfunction Is this a current diagnosis for this admission?: Yes Summary: Patient is on a beta-damir. Patient is an anuric. (6) Dysphagia Is this a current diagnosis for this admission?: Yes Summary: - Impression/Summary Laryngeal Penetration: No Tracheal Aspiration: no Patient Presents With: Oral stage dysphagia - All oral movements were very slow and delayed, however, adequate range of motion was seen., Mild-Moderate Risk of Aspiration: Minimal - Recommendations Solid Diet Recommendations: Mechanical Soft, Ground Meat Liquid Diet Recommendations: Thin Strict Aspitarion Precautions: Yes Dysphagia Therapy with MOTOR SCOOTER REPAIRER: No Recommended Techniques: Fully Upright During Meal, Small Bites and Sips Supervision: requires assistance (7) Anemia in chronic kidney disease Is this a current diagnosis for this admission?: Yes Summary: Stable. 01/30/18 02/24/18 15:08 13:00 Hgb 12.9 12.8 (8) End stage renal disease on dialysis Is this a current diagnosis for this admission?: Yes (9) Encephalopathy, unspecified Is this a current diagnosis for this admission?: Yes (10) Hypertension Is this a current diagnosis for this admission?: Yes (11) Hypocalcemia Is this a current diagnosis for this admission?: Yes (12) Sleep apnea Is this a current diagnosis for this admission?: Yes Summary: Refused CPAP.. (13) Status post subtotal parathyroidectomy Is this a current diagnosis for this admission?: Yes Summary: 02/22/18 02/24/18 16:17 13:00 Calcium 10.0 PTH Intact 140.0 H - Additional Information Resuscitation Status: Full Code Discharge Diet: As Tolerated - Renal Discharge Activity: Activity As Tolerated Home Medications: Midodrine HCl 10 mg PO ASDIR PRN 12/13/17 Calcitriol [Rocaltrol] 2 tab PO DAILY 01/31/18 Acetaminophen [Tylenol 325 mg Tablet] 650 mg PO Q4HP PRN tablet 02/26/18 Famotidine [Pepcid 20 mg Tablet] 20 mg PO QHS tablet 02/26/18 Insulin Glargine,Hum.rec.anlog [Lantus Insulin 100 Unit/mL] 16 unit SUBCUT QHS insuln.pen 02/26/18 Insulin Lispro [Humalog Insulin (Lispro) 100 unit/mL] 0 unit SUBCUT ACHS unit 02/26/18 Metoclopramide HCl [Reglan 10 mg Tablet] 5 mg PO AC tablet 02/26/18 Metoprolol Succinate [Toprol Xl 50 mg Tab.sr] 50 mg PO Q12 tab.sr.24h 02/26/18 Ondansetron [Zofran Odt 4 mg Tablet] 4 mg PO Q4HP PRN tab.rapdis 02/26/18 History of Present Illness Admission Date/PCP: 01/30/18 18:08 ROBERTO SALDANA MD Patient complains of: Weakness History of Present Illness: MARIOLA GAR is a 58 year old female with a past medical history of end- stage renal disease on maintenance hemodialysis, diabetes mellitus complicated with severe neuropathy that came to the emergency room for evaluation of persistent vomiting, nausea, generalized body weakness ,pruritus and many other complaints. The patient was evaluated in the emergency room, it was felt that she needed to be admitted to the hospital for further evaluation of her symptoms. Her primary felt that she probably had gastroparesis from autonomic neuropathy, and arranged a gastric emptying test. Hospital Course Hospital Course: Patient was well-known to the patient's primary from outpatient. Nuclear medicine gastric emptying study was done it was abnormal it demonstrated delayed emptying time consistent with gastroparesis. On February 01, 2018 the liver enzymes pattern was consistent with obstructive pattern and the primary suspected a pancreatic lesion and requested CT scan of the abdomen and pelvis without contrast, it demonstrated dilated scattered loops of bowel measuring up to 3 cm there was a transition point in the left lower quadrant consultation was obtained from surgery. The patient had laparotomy on 02/03/2018 she was found to have intra-abdominal adhesions and internal hernia adjacent to the rectum with small bowel incarceration. The patient underwent open lysis of the adhesions with reduction of internal hernia. She has been n.p.o. for a couple of days. Patient is on hemodialysis and was seen by nephrology. She has been undergoing hemodialysis during hospital stay of low blood pressure about 3 days ago requiring the use of pressors including vasopressin and norepinephrine. Because of the low blood pressure troponin was drawn slightly elevated, peaked at 1 significance was not clear. The patient improved and was transferred out of the critical care unit. The patient was seen by truck safety inspector Dr. Edmonds. CT head was done which was negative for any acute CVA, patient had a history of CVA she is also on psychotropic drug before this admission the combination of anesthesia, sedation with propofol could be partly responsible for the encephalopathy. Patient's family member RN came from [facility] and was requesting for transfer to [facility]. [facility] accepted in transfer based on availability of bed. The patient has had an extensive workup. The patient appears to be at her baseline. Physical Exam Vital Signs: Temp Pulse Resp BP Pulse Ox 98.4 F 81 17 97/60 L 93 02/26/18 11:27 02/26/18 11:27 02/26/18 11:27 02/26/18 11:27 02/26/18 11:27 Intake & Output 02/24/18 02/25/18 02/26/18 23:59 23:59 23:59 Intake Total 237 580 125 Output Total 1600 Balance -1363 580 125 Weight 95.8 kg General appearance: PRESENT: no acute distress, cooperative, obese Head exam: PRESENT: atraumatic, normocephalic Eye exam: PRESENT: conjunctiva pink Mouth exam: PRESENT: moist, tongue midline. ABSENT: dry mucosa Neck exam: ABSENT: JVD, tracheal deviation, tracheostomy Respiratory exam: PRESENT: clear to auscultation [facility], decreased breath sounds, symmetrical, unlabored. ABSENT: accessory muscle use Cardiovascular exam: PRESENT: RRR. ABSENT: tachycardia GI/Abdominal exam: PRESENT: normal bowel sounds. ABSENT: distended, guarding, tenderness Neurological exam: PRESENT: alert, awake, oriented to place Psychiatric exam: PRESENT: unusual affect Results Laboratory Results: Labs- Last Values WBC 7.4 10^3/uL (4.0-10.5) 02/24/18 13:00 RBC 4.69 10^6/uL (3.72-5.28) 02/24/18 13:00 Hgb 12.8 g/dL (12.0-15.5) 02/24/18 13:00 Hct 39.4 % (36.0-47.0) 02/24/18 13:00 MCV 84 fl (80-97) 02/24/18 13:00 MCH 27.2 pg (27.0-33.4) 02/24/18 13:00 MCHC 32.4 g/dL (32.0-36.0) 02/24/18 13:00 RDW 20.5 % (11.5-14.0) H 02/24/18 13:00 Plt Count 262 10^3/uL (150-450) 02/24/18 13:00 Total Counted 100 02/22/18 06:33 Seg Neutrophils % Not Reportable 02/22/18 06:33 Seg Neuts % (Manual) 63 % (42-78) 02/22/18 06:33 Band Neutrophils % 1 % (3-5) L 02/10/18 05:30 Lymphocytes % Not Reportable 02/22/18 06:33 Lymphocytes % (Manual) 22 % (13-45) 02/22/18 06:33 Monocytes % Not Reportable 02/22/18 06:33 Monocytes % (Manual) 13 % (3-13) 02/22/18 06:33 Eosinophils % Not Reportable 02/22/18 06:33 Eosinophils % (Manual) 2 % (0-6) 02/22/18 06:33 Basophils % Not Reportable 02/22/18 06:33 Basophils % (Manual) 0 % (0-2) 02/22/18 06:33 Absolute Neutrophils Not Reportable 02/22/18 06:33 Abs Neuts (Manual) 5.1 10^3/uL (1.7-8.2) 02/22/18 06:33 Absolute Lymphocytes Not Reportable 02/22/18 06:33 Abs Lymphs (Manual) 1.8 10^3/uL (0.5-4.7) 02/22/18 06:33 Absolute Monocytes Not Reportable 02/22/18 06:33 Abs Monocytes (Manual) 1.1 10^3/uL (0.1-1.4) 02/22/18 06:33 Absolute Eosinophils Not Reportable 02/22/18 06:33 Absolute Eos (Manual) 0.2 10^3/uL (0.0-0.6) 02/22/18 06:33 Absolute Basophils Not Reportable 02/22/18 06:33 Abs Basophils (Manual) 0.0 10^3/uL (0.0-0.2) 02/22/18 06:33 Nucleated RBCs 2 /100 WBC (0) 02/17/18 06:04 Toxic Granulation SLIGHT 02/14/18 04:45 Toxic Vacuolation PRESENT 02/14/18 04:45 Clumped Platelets PRESENT 02/22/18 06:33 Large Platelets PRESENT 02/17/18 06:04 Platelet Comment ADEQUATE 02/22/18 06:33 Polychromasia 1+ 02/17/18 06:04 Poikilocytosis SLIGHT 02/17/18 06:04 Basophilic Stippling PRESENT 02/17/18 06:04 Anisocytosis 2+ 02/22/18 06:33 Target Cells SLIGHT 02/17/18 06:04 Ovalocytes 1+ 02/14/18 04:45 Schistocytes SLIGHT 02/14/18 04:45 PT 15.2 SEC (11.4-15.4) 02/06/18 15:22 INR 1.14 02/06/18 15:22 APTT 28.6 SEC (23.5-35.8) 02/03/18 17:50 Carbonic Acid 1.54 mmol/L (1.05-1.35) H 02/17/18 06:23 HCO3/H2CO3 Ratio 19:1 02/17/18 06:23 ABG pH 7.37 (7.35-7.45) 02/17/18 06:23 ABG pCO2 51.3 mmHg (35-45) H 02/17/18 06:23 ABG pO2 212.2 mmHg (80-100) H 02/17/18 06:23 ABG HCO3 29.3 mmol/L (20-24) H 02/17/18 06:23 ABG Total CO2 30.8 mmol/L (21-25) H 02/17/18 06:23 ABG O2 Saturation 99.4 % (94-98) H 02/17/18 06:23 ABG Base Excess 3.3 mmol/L 02/17/18 06:23 FiO2 6.5L 02/17/18 06:23 Sodium 138.1 mmol/L (137-145) 02/24/18 13:00 Potassium 4.4 mmol/L (3.6-5.0) 02/24/18 18:12 Chloride 95 mmol/L (98-107) L 02/24/18 13:00 Carbon Dioxide 25 mmol/L (22-30) 02/24/18 13:00 Anion Gap 18 (5-19) 02/24/18 13:00 BUN 34 mg/dL (7-20) H 02/24/18 13:00 Creatinine 8.52 mg/dL (0.52-1.25) H 02/24/18 13:00 Est GFR ( Amer) 6 (>60) L 02/24/18 13:00 Est GFR (Non-Af Amer) 5 (>60) L 02/24/18 13:00 Glucose 180 mg/dL (75-110) H 02/24/18 13:00 POC Glucose 154 mg/dL (70-110) H 02/26/18 10:48 Hemoglobin A1c % 12.0 % (4.7-6.0) H 01/31/18 04:27 Calcium 10.0 mg/dL (8.4-10.2) 02/24/18 13:00 Phosphorus 6.7 mg/dL (2.5-4.5) H 02/20/18 04:59 Magnesium 2.4 mg/dL (1.6-2.3) H 02/22/18 09:57 Iron 48.6 ug/dL (37-170) 02/03/18 03:55 TIBC 204 ug/dL (250-450) L 02/03/18 03:55 % Saturation 24 % 02/03/18 03:55 Ferritin 2470.00 ng/mL (11.1-264.0) H 02/03/18 03:55 Total Bilirubin 1.7 mg/dL (0.2-1.3) H 02/22/18 09:57 Direct Bilirubin 1.5 mg/dL (0.0-0.4) H 02/22/18 09:57 Neonat Total Bilirubin Not Reportable 02/22/18 09:57 Neonat Direct Bilirubin Not Reportable 02/22/18 09:57 Neonat Indirect Bili Not Reportable 02/22/18 09:57 AST 32 U/L (14-36) 02/22/18 09:57 ALT 16 U/L (9-52) 02/22/18 09:57 Alkaline Phosphatase 250 U/L (38-126) H 02/22/18 09:57 Ammonia < 8.7 umol/L (9-33) L 02/16/18 04:30 Creatine Kinase 296 U/L (30-135) H 02/08/18 08:47 CK-MB (CK-2) 1.10 ng/mL (<4.55) 02/08/18 11:45 Troponin I 1.090 ng/mL 02/08/18 11:45 NT-Pro-B Natriuret Pep 29905 pg/mL (5-900) H 01/30/18 22:08 Total Protein 8.2 g/dL (6.3-8.2) 02/22/18 09:57 Albumin 4.3 g/dL (3.5-5.0) 02/22/18 09:57 Prealbumin 10.8 mg/dL (17.6-36.0) L 02/09/18 04:41 Triglycerides 217 mg/dL (<150) H 01/31/18 04:27 Cholesterol 152.25 mg/dL (0-200) 01/31/18 04:27 LDL Cholesterol Direct 59 mg/dL (<100) 01/31/18 04:27 VLDL Cholesterol 43.4 mg/dL (10-31) H 01/31/18 04:27 HDL Cholesterol 61 mg/dL (>40) 01/31/18 04:27 Amylase 50 U/L (30-110) 01/30/18 22:08 Lipase 169.5 U/L (23-300) 02/13/18 05:48 TSH 2.55 uIU/mL (0.47-4.68) 01/30/18 22:08 Free T4 1.35 ng/dL (0.78-2.19) 01/30/18 22:08 PTH Intact 140.0 pg/mL (10.0-65.0) H 02/22/18 16:17 Time Trough Drawn 0430 02/15/18 04:30 Vancomycin Trough 18.2 ug/mL (5.0-20.0) 02/15/18 04:30 C. difficile Tox (PCR) NEGATIVE (NEGATIVE) 02/17/18 18:00 02/09/18 13:00 Gram Stain - Final Tracheal Aspirate Sputum Culture - Final Proteus Mirabilis C.albicans/C.dubliniensis Reduced Normal Jennifer 02/07/18 19:50 Blood Culture - Final Blood NO GROWTH IN 5 DAYS 02/07/18 19:39 Blood Culture - Final Blood NO GROWTH IN 5 DAYS Impressions: Gastric Emptying Nuclear Medicine 01/30/18 00:00 IMPRESSION: No emptying of the administered activity from the stomach over 2 hours. KUB X-Ray 02/02/18 11:00 IMPRESSION: THE TIP OF THE NASOGASTRIC TUBE IN THE STOMACH. Abdomen Ultrasound 02/03/18 00:00 IMPRESSION: Post cholecystectomy. Otherwise unremarkable study Abdomen/Pelvis CT 02/03/18 07:00 IMPRESSION: Small bowel obstruction with transition point in the midline pelvis. Head CT 02/08/18 00:00 IMPRESSION: No significant change. Chronic white matter changes. Focal encephalomalacia medial left occipital lobe EVIDENCE OF ACUTE STROKE: NO. Chest X-Ray 02/17/18 10:15 IMPRESSION: Stable enlarged cardiac silhouette without additional evidence of acute cardiopulmonary process. Modified Barium Swallow 02/23/18 00:00 IMPRESSION: NO EVIDENCE OF PENETRATION OR ASPIRATION.PLEASE SEE SPEECH PATHOLOGIST REPORT FOR OTHER FINDINGS AND RECOMMENDATIONS. Head MRI 02/24/18 00:00 IMPRESSION: Microvascular ischemia. 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 No acute intracranial process. EVIDENCE OF ACUTE STROKE: NO. EEG classification 1. Generalized background slowing 2. Frontal intermittent rhythmic delta activity Transfer Plan - Disposition Transfer Plan: The patient will be transferred to the rehab facility The patient is to follow with her primary care provider within 2-4 weeks for hospital follow-up. - Time Spent with Patient Time spent with patient: Greater than 30 Minutes Qualifiers - * PATIENT BEING DISCHARGED WITH ANY OF THE FOLLOWING DIAGNOSIS: No
--- NOTE | 2018-02-26 16:07 | PROGRESS NOTE E ---
Progress Note NAME: MARIOLA GAR : 1960 AGE: 58Y DATE: 02/26/2018 ROOM: 425 SUBJECTIVE: The patient is lying in bed. The patient is sleeping this morning. There has been no report of excessive vomiting nor diarrhea overnight. The patient had a good day yesterday. She has remained afebrile. Her blood pressure has been in a good range. The patient's MRI results have been discussed with her. Hopefully the patient can go to a rehab facility in the morning, if family is agreeable. BRIEF HISTORY: The patient is a 58-year-old female with past medical history of end-stage renal disease and known cerebrovascular disease. The patient initially was on Dr. Hoskins's service, due to persistent nausea and vomiting, where she was found to have a small bowel obstruction. The patient did go to the OR for operative repair on 02/05/[address] Barraza. The patient has done well from this course and Surgery has signed off. The patient is back eating solid foods; however, the patient was to be discharged to go to a rehab facility on 02/09/2018, and the family fired Dr. Hoskins, citing that they would like for the patient to be seen by Neurology and have an extensive neurological evaluation. The patient has been found to be at her cognitive baseline; however, the hospitalist service resumed her case and workup has been ongoing. The patient had an EEG that just showed some general background flowing. The patient had a head MRI that showed her previous cerebrovascular disease. The patient had a swallow study, for which she did well with. The family had made an agreement that if the patient's EEG and MRI were unremarkable that they would be agreeable for her to go to rehab on Tuesday. The patient is on a waiting list for transfer at [facility] for neurological evaluation at the family's request. MEDICATIONS: Reviewed. OBJECTIVE: GENERAL: The patient is a 58-year-old female that is currently resting. She does not appear to be distressed. VITAL SIGNS: Temperature is 98.4, pulse 77, respirations 16, blood pressure is 110/59, oxygen saturation 93% on room air. CHEST: Symmetrical, unlabored. SKIN: Dry. She is not diaphoretic. EXTREMITIES: There is no edema. DIAGNOSTICS: Lab values are as follows: Hematology obtained on 02/24/2018: WBCs are 7.4, hemoglobin is 12.8, hematocrit is 34.9, platelet count is 362,000. Chemistry obtained on 02/24/2018: Sodium is 138, potassium is 2.8, chloride is 95, carbon dioxide is 25, BUN 34, creatinine is 8.62. Glucose 180. Calcium is 10.0. IMPRESSION AND PLAN: 1. ACUTE HYPOXEMIC RESPIRATORY FAILURE. This is resolved. 2. SMALL BOWEL OBSTRUCTION, STATUS POST OPERATIVE REPAIR AND LYSIS OF ADHESIONS. The patient is doing quite well. Tolerated diet. Surgery has signed off. 3. DYSPHAGIA. The patient has passed her swallow eval. No dietary recommendations have been made. 4. END-STAGE RENAL DISEASE WITH DIALYSIS DEPENDENCY. The patient will be dialyzed tomorrow. 5. METABOLIC ENCEPHALOPATHY. The patient appears to be at her baseline. MRI only showed her previous cerebrovascular disease and EEG did show a generalized slowing. The patient's home medicines, including trazodone, have been stopped to ensure there is no pharmacological contribution to this. PTH was elevated a bit. Calcium is well-controlled. 6. CEREBROVASCULAR DISEASE. DISPOSITION: The patient is a FULL CODE. Pending patient's symptomatology, we will reevaluate in the a.m. to go to rehab. The patient is on the list for transfer at [facility] at family request. Time spent on this followup, including assessment and plan, is 15 minutes. DICTATING PHYSICIAN: TONYA RODRIGUEZ NP [id number] PHY#: [id number] ID: [id number] JOB#: [id number] ACCT: [id number] cc: >
[2018-02-26] MEDS: INSULIN GLARGINE,HUM.REC.ANLOG 300 UNIT/3 ML INSULN.PEN SUBCUT SCH (22:13)
[2018-02-26] MEDS: FAMOTIDINE 20 MG TABLET PO SCH (22:13)
[2018-02-27] MEDS: HEPARIN SOD (PORCINE) 5,000 UNIT/ML 1 ML SYRINGE SUBCUT SCH ×3 (06:15→23:34)
[2018-02-27] MEDS: METOCLOPRAMIDE HCL 10 MG TABLET PO SCH ×3 (07:47→15:23)
[2018-02-27] MEDS: ACETAMINOPHEN 325 MG TABLET PO PRN (08:06)
[2018-02-27] MEDS: CALCITRIOL 0.25 MCG CAPSULE PO SCH (11:31)
[2018-02-27] MEDS: METOPROLOL SUCCINATE 50 MG TAB.SR.24H PO SCH ×3 (11:34→23:36)
[2018-02-27 15:37] LABS: HEMATOCRIT 40.9 % (36.0-47.0); HEMOGLOBIN 13.1 g/dL (12.0-15.5); MEAN CORPUSCULAR HEMOGLOBIN 27.1 pg (27.0-33.4); MEAN CORPUSCULAR HGB CONC 32.1 g/dL (32.0-36.0); MEAN CORPUSCULAR VOLUME 85 fl (80-97); PLATELET COUNT 253 10^3/uL (150-450); RED BLOOD COUNT 4.85 10^6/uL (3.72-5.28); RED CELL DISTRIBUTION WIDTH 19.8 % (11.5-14.0); WHITE BLOOD COUNT 7.8 10^3/uL (4.0-10.5)
[2018-02-27 15:56] LABS: ANION GAP 19 (5-19); BLOOD UREA NITROGEN 40 mg/dL (7-20); CALCIUM 10.3 mg/dL (8.4-10.2); CARBON DIOXIDE 25 mmol/L (22-30); CHLORIDE 94 mmol/L (98-107); GLUCOSE 142 mg/dL (75-110); POTASSIUM 5.2 mmol/L (3.6-5.0); SODIUM 137.6 mmol/L (137-145)
--- NOTE | 2018-02-27 18:43 | PDOC PROGRESS REPORT ---
Subjective Progress Note for:: 02/27/18 Subjective:: Originally thought the patient was supposed to be transferred to [facility] this morning. Seems to be consumptive confusion regarding that. Seems that it may have been a referral initiated early in admission, but appears to be no longer needed. Discussion had with physician from [place], nurse, and cereal chemist. All of the above are agreeable for the patient to go to [facility]. Family is agreeable as well. She seemed to be close to her baseline this mo rning when I evaluated the patient, however nursing report a little later that she seemed a little more confused than normal. She was taken for dialysis today. Labs were ordered. no Acute issues reported. Reason For Visit: PERSISTENT VOMITING ? DIABETES Physical Exam Vital Signs: Temp Pulse Resp BP Pulse Ox 97.5 F 75 18 106/47 L 100 02/27/18 15:57 02/27/18 15:57 02/27/18 15:57 02/27/18 15:57 02/27/18 15:57 Intake & Output 02/26/18 02/27/18 02/28/18 06:59 06:59 06:59 Intake Total 125 530 Balance 125 530 General appearance: PRESENT: no acute distress, cooperative, obese Head exam: PRESENT: atraumatic, normocephalic Mouth exam: PRESENT: moist, tongue midline Respiratory exam: PRESENT: other - Good airflow bilaterally. No appreciable rhonchi or wheeze. Cardiovascular exam: PRESENT: RRR, +S1, +S2 GI/Abdominal exam: PRESENT: normal bowel sounds, soft. ABSENT: distended, guarding, mass, organolmegaly, rebound, tenderness Rectal exam: PRESENT: deferred Extremities exam: PRESENT: other - 1+ edema bilateral lower extremities. Strength 5 out of 5 bilateral upper and lower extremities. However right side is just slightly stronger than the left. Appears this is consistent with findings in the past. Neurological exam: PRESENT: alert, altered, awake, oriented to person, oriented to place, CN II-XII grossly intact Psychiatric exam: PRESENT: other - Blunted Results Laboratory Results: 02/27/18 15:17 02/27/18 15:17 02/27/18 02/27/18 15:17 15:17 WBC 7.8 RBC 4.85 Hgb 13.1 Hct 40.9 MCV 85 MCH 27.1 MCHC 32.1 RDW 19.8 H Plt Count 253 Sodium 137.6 Potassium 5.2 H Chloride 94 L Carbon Dioxide 25 Anion Gap 19 BUN 40 H Creatinine 9.86 H Est GFR ( Amer) 5 L Est GFR (Non-Af Amer) 4 L Glucose 142 H Calcium 10.3 H 01/30/18 01/30/18 01/30/18 22:08 22:08 22:08 Creatine Kinase 48 CK-MB (CK-2) 0.76 Troponin I 0.054 NT-Pro-B Natriuret Pep 09356 H 01/31/18 01/31/18 01/31/18 04:27 04:27 13:17 Creatine Kinase 47 72 CK-MB (CK-2) 0.96 Troponin I 0.068 NT-Pro-B Natriuret Pep 01/31/18 01/31/18 01/31/18 13:17 18:20 18:20 Creatine Kinase 58 CK-MB (CK-2) 1.53 1.59 Troponin I 0.079 0.081 NT-Pro-B Natriuret Pep 02/07/18 02/07/18 02/08/18 19:00 19:00 04:20 Creatine Kinase 376 H 348 H CK-MB (CK-2) 1.20 Troponin I 0.110 NT-Pro-B Natriuret Pep 02/08/18 02/08/18 02/08/18 04:20 08:47 11:45 Creatine Kinase 296 H CK-MB (CK-2) 1.20 1.10 Troponin I 0.811 1.090 NT-Pro-B Natriuret Pep Impressions: Gastric Emptying Nuclear Medicine 01/30/18 00:00 IMPRESSION: No emptying of the administered activity from the stomach over 2 hours. KUB X-Ray 02/02/18 11:00 IMPRESSION: THE TIP OF THE NASOGASTRIC TUBE IN THE STOMACH. Abdomen Ultrasound 02/03/18 00:00 IMPRESSION: Post cholecystectomy. Otherwise unremarkable study Abdomen/Pelvis CT 02/03/18 07:00 IMPRESSION: Small bowel obstruction with transition point in the midline pelvis. Head CT 02/08/18 00:00 IMPRESSION: No significant change. Chronic white matter changes. Focal encephalomalacia medial left occipital lobe EVIDENCE OF ACUTE STROKE: NO. Chest X-Ray 02/17/18 10:15 IMPRESSION: Stable enlarged cardiac silhouette without additional evidence of acute cardiopulmonary process. Modified Barium Swallow 02/23/18 00:00 IMPRESSION: NO EVIDENCE OF PENETRATION OR ASPIRATION.PLEASE SEE SPEECH PATHOLOGIST REPORT FOR OTHER FINDINGS AND RECOMMENDATIONS. Head MRI 02/24/18 00:00 IMPRESSION: Microvascular ischemia. 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 No acute intracranial process. EVIDENCE OF ACUTE STROKE: NO. Assessment & Plan - Diagnosis (1) Acute respiratory failure with hypoxia Is this a current diagnosis for this admission?: Yes (2) Diabetes mellitus type 2 in obese Is this a current diagnosis for this admission?: Yes (3) Diabetic gastroparesis Is this a current diagnosis for this admission?: Yes (4) Diastolic dysfunction Is this a current diagnosis for this admission?: Yes (5) Dysphagia Is this a current diagnosis for this admission?: Yes (6) Small bowel obstruction Is this a current diagnosis for this admission?: Yes (7) Anemia in chronic kidney disease Qualifiers: Chronic kidney disease stage: stage 3 (moderate) Qualified Code(s): N18.3 - Chronic kidney disease, stage 3 (moderate); D63.1 - Anemia in chronic kidney disease; D63.1 - Anemia in chronic kidney disease Is this a current diagnosis for this admission?: Yes (8) Encephalopathy, unspecified Is this a current diagnosis for this admission?: Yes - Time Time Spent with patient: 25-34 minutes Medications reviewed and adjusted accordingly: Yes - Inpatient Certification Based on my medical assessment, after consideration of the patient's comorbidities, presenting symptoms, or acuity I expect that the services needed warrant INPATIENT care.: Yes I certify that my determination is in accordance with my understanding of Medicare's requirements for reasonable and necessary INPATIENT services [42 CFR 412.3e].: Yes - Plan Summary Plan Summary: 1. Acute respiratory failure. Resolved. Status post extubation. 2. SBO. Status post repair and lysis of adhesions. Tolerated diet. Diet per speech recommendations. Status post modified barium swallow. Mechanical soft. 3. Dysphagia. Diet per speech recommendations. Some oral medications have been changed to IV to accommodate the patient. 4. End-stage renal disease. HD dependent. Dialyzed today. 5. Metabolic encephalopathy. Seems this morning she was close to her baseline. MRI shows previous CVA and microvascular disease as it was obtained since admission. EEG shows generalized slowing. Seem to be slightly more confused as the day went on. No recent labs, and thought this may be related to the need for dialysis. Reevaluate postdialysis. Check labs. 6. Disposition-transfer to [facility] was cancelled. I was unable to find an appropriate reason for transfer. Family is agreeable to rehab at [facility]. Will reassess the patient tomorrow and evaluate and go from there.
--- NOTE | 2018-02-27 20:07 | PDOC PROGRESS REPORT ---
Subjective Progress Note for:: 02/27/18 Subjective:: I am seeing the patient on dialysis this evening. Patient was just quiet not being very verbal but also indicated that she has throat pain. Apparently she has been having problem with swallowing as well. She was supposed to go for swallowing evaluation today but that has been canceled unfortunately. So far dialysis her blood pressure has been on the low side so we actually have to decrease her ultrafiltration to almost none. Compared to admission patient's w eight has really done down. She has not been able to take anything orally so I think she is on the dry side. Patient is also being arranged to go to rehab. Reason For Visit: PERSISTENT VOMITING ? DIABETES Physical Exam Vital Signs: Temp Pulse Resp BP Pulse Ox 97.5 F 75 18 106/47 L 100 02/27/18 15:57 02/27/18 15:57 02/27/18 15:57 02/27/18 15:57 02/27/18 15:57 Intake & Output 02/26/18 02/27/18 02/28/18 06:59 06:59 06:59 Intake Total 125 530 Balance 125 530 Vitals during dialysis: Blood pressure 95/47, heart rate of 68, repeat blood pressure was 1 over 104/40, blood flow rate of 400 mL/min, dialysate flow rate of 800 ml/minute. Exam: General appearance: PRESENT: no acute distress, cooperative, well-developed, well-nourished Head exam: PRESENT: atraumatic, normocephalic; examined her throat but did not reveal any oral thrush that I can see. Eye exam: PRESENT: conjunctiva pink, PERRLA. ABSENT: scleral icterus Neck exam: ABSENT: JVD Respiratory exam: PRESENT: Normal breath sounds. ABSENT: crackles, rales, rhonchi, unlabored, wheezes Cardiovascular exam: PRESENT: Regular rate rhythm -+S1, +S2. ABSENT: diastolic murmur, systolic murmur GI/Abdominal exam: PRESENT: normal bowel sounds, soft. ABSENT: guarding, mass, tenderness Extremities exam: ABSENT: No edema Neurological exam: PRESENT: alert, awake, oriented to person. Skin exam: PRESENT: dry, warm, Cardiovascular exam: PRESENT: +S1, +S2, systolic murmur GI/Abdominal exam: PRESENT: normal bowel sounds, soft. ABSENT: organomegaly, tenderness Results Laboratory Results: 02/27/18 15:17 02/27/18 15:17 02/27/18 02/27/18 15:17 15:17 WBC 7.8 RBC 4.85 Hgb 13.1 Hct 40.9 MCV 85 MCH 27.1 MCHC 32.1 RDW 19.8 H Plt Count 253 Sodium 137.6 Potassium 5.2 H Chloride 94 L Carbon Dioxide 25 Anion Gap 19 BUN 40 H Creatinine 9.86 H Est GFR ( Amer) 5 L Est GFR (Non-Af Amer) 4 L Glucose 142 H Calcium 10.3 H 01/30/18 01/30/18 01/30/18 22:08 22:08 22:08 Creatine Kinase 48 CK-MB (CK-2) 0.76 Troponin I 0.054 NT-Pro-B Natriuret Pep 90328 H 01/31/18 01/31/18 01/31/18 04:27 04:27 13:17 Creatine Kinase 47 72 CK-MB (CK-2) 0.96 Troponin I 0.068 NT-Pro-B Natriuret Pep 01/31/18 01/31/18 01/31/18 13:17 18:20 18:20 Creatine Kinase 58 CK-MB (CK-2) 1.53 1.59 Troponin I 0.079 0.081 NT-Pro-B Natriuret Pep 02/07/18 02/07/18 02/08/18 19:00 19:00 04:20 Creatine Kinase 376 H 348 H CK-MB (CK-2) 1.20 Troponin I 0.110 NT-Pro-B Natriuret Pep 02/08/18 02/08/18 02/08/18 04:20 08:47 11:45 Creatine Kinase 296 H CK-MB (CK-2) 1.20 1.10 Troponin I 0.811 1.090 NT-Pro-B Natriuret Pep Impressions: Gastric Emptying Nuclear Medicine 01/30/18 00:00 IMPRESSION: No emptying of the administered activity from the stomach over 2 hours. KUB X-Ray 02/02/18 11:00 IMPRESSION: THE TIP OF THE NASOGASTRIC TUBE IN THE STOMACH. Abdomen Ultrasound 02/03/18 00:00 IMPRESSION: Post cholecystectomy. Otherwise unremarkable study Abdomen/Pelvis CT 02/03/18 07:00 IMPRESSION: Small bowel obstruction with transition point in the midline pelvis. Head CT 02/08/18 00:00 IMPRESSION: No significant change. Chronic white matter changes. Focal encephalomalacia medial left occipital lobe EVIDENCE OF ACUTE STROKE: NO. Chest X-Ray 02/17/18 10:15 IMPRESSION: Stable enlarged cardiac silhouette without additional evidence of acute cardiopulmonary process. Modified Barium Swallow 02/23/18 00:00 IMPRESSION: NO EVIDENCE OF PENETRATION OR ASPIRATION.PLEASE SEE SPEECH PATHOLOGIST REPORT FOR OTHER FINDINGS AND RECOMMENDATIONS. Head MRI 02/24/18 00:00 IMPRESSION: Microvascular ischemia. 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 No a cute intracranial process. EVIDENCE OF ACUTE STROKE: NO. Assessment & Plan - Diagnosis (1) End stage chronic kidney disease Is this a current diagnosis for this admission?: Yes Plan: We will do dialysis today for 3 hours, using the patient's AV for, with 2 potassium/2 calcium bath, blood flow rate of 400 mL per minute, dialysate flow rate of 800 mL per minute, ultrafiltration none, no heparin and no Procrit. Patient will be monitored throughout dialysis treatment. We decreased the ultrafiltration to none because of low blood pressure and the patient looking clinically dry. (2) Anemia in chronic kidney disease Qualifiers: Chronic kidney disease stage: stage 3 (moderate) Qualified Code(s): N18.3 - Chronic kidney disease, stage 3 (moderate); D63.1 - Anemia in chronic kidney disease; D63.1 - Anemia in chronic kidney disease Is this a current diagnosis for this admission?: Yes Plan: Does not require Procrit at this time.. (3) Hypotension Is this a current diagnosis for this admission?: Yes Plan: This could be partly due to volume depletion and dehydration. No ultrafiltration today. (4) Dysphagia Is this a current diagnosis for this admission?: Yes Plan: Agree with swallow evaluation and possibly upper endoscopy. (5) Diabetic gastroparesis Is this a current diagnosis for this admission?: Yes Plan: On Reglan. (6) Small bowel obstruction Is this a current diagnosis for this admission?: Yes Plan: Status post exploratory laparotomy, lysis of adhesions, and reduction of incarcerated hernia. (7) Type 2 diabetes mellitus Qualifiers: Diabetes mellitus terminal worker insulin use: with terminal worker use Diabetes tom ortiz complication status: with kidney complications Diabetes mellitus comp lication detail: with chronic kidney disease Chronic kidney disease stage: on chronic dialysis Qualified Code(s): E11.22 - Type 2 diabetes mellitus with diabetic chronic kidney disease; N18.6 - End stage renal disease; Z79.4 - meterman (current) use of insulin; Z99.2 - Dependence on renal dialysis Is this a current diagnosis for this admission?: Yes - Time Time with patient: 15-25 minutes
[2018-02-27] MEDS: INSULIN GLARGINE,HUM.REC.ANLOG 300 UNIT/3 ML INSULN.PEN SUBCUT SCH (23:35)
[2018-02-27] MEDS: FAMOTIDINE 20 MG TABLET PO SCH (23:35)
[2018-02-28 00:02] LABS: PHOSPHORUS 7.6 mg/dL (2.5-4.5)
[2018-02-28] MEDS: HEPARIN SOD (PORCINE) 5,000 UNIT/ML 1 ML SYRINGE SUBCUT SCH ×3 (06:21→21:25)
[2018-02-28] MEDS: METOCLOPRAMIDE HCL 10 MG TABLET PO SCH ×3 (07:31→16:02)
[2018-02-28] MEDS: ACETAMINOPHEN 325 MG TABLET PO PRN (07:38)
[2018-02-28 08:33] LABS: HEMATOCRIT 37.4 % (36.0-47.0); HEMOGLOBIN 12.1 g/dL (12.0-15.5); MEAN CORPUSCULAR HEMOGLOBIN 27.7 pg (27.0-33.4); MEAN CORPUSCULAR HGB CONC 32.4 g/dL (32.0-36.0); MEAN CORPUSCULAR VOLUME 85 fl (80-97); PLATELET COUNT 234 10^3/uL (150-450); RED BLOOD COUNT 4.38 10^6/uL (3.72-5.28); RED CELL DISTRIBUTION WIDTH 19.9 % (11.5-14.0); WHITE BLOOD COUNT 8.9 10^3/uL (4.0-10.5)
[2018-02-28 08:58] LABS: ANION GAP 13 (5-19); CARBON DIOXIDE 32 mmol/L (22-30); CHLORIDE 97 mmol/L (98-107); GLUCOSE 110 mg/dL (75-110); SODIUM 141.7 mmol/L (137-145)
[2018-02-28] MEDS: METOPROLOL SUCCINATE 50 MG TAB.SR.24H PO SCH ×2 (09:16→21:24)
[2018-02-28] MEDS: CALCITRIOL 0.25 MCG CAPSULE PO SCH (09:16)
[2018-02-28 09:20] LABS: BLOOD UREA NITROGEN 17 mg/dL (7-20); POTASSIUM 3.6 mmol/L (3.6-5.0)
--- NOTE | 2018-02-28 14:06 | PDOC PROGRESS REPORT ---
Addendum entered and electronically signed by GONZÁLEZ BANKS PA-C 02/28/18 14:26: Provider Note Provider Note: After speaking with nursing it seems that the patient became somewhat confused last night and required a sitter. There was no reports of agitation. Suspect this is likely some hospital imposed delirium superimposed on top of small vessel disease and old infarct described on MRI. Patient unfortunately would not be eligible for discharge to 24 hours after the sitter has been discontinued. Recommend frequent reorientation and minimal intervention pharmacologically if possible. Cancel discharge. Consider for discharge tomorrow March 01. Bed still waiting at [facility]. Original Note: Subjective Progress Note for:: 02/28/18 Subjective:: For a full discharge summary please see the transfer summary dictated on February 26. Patient completed hemodialysis yesterday late afternoon early evening. At that time her mentation showed improvement. When evaluated this morning she is more awake. She is more talkative. She is alert and oriented to date, time, year, self, situation, president. She appears to be at her baseline when comparing to previous notes. She is agreeable to transfer to rehab. She denies having any issues in the last 24 hours. No issues reported by nursing. Reason For Visit: PERSISTENT VOMITING ? DIABETES Physical Exam Vital Signs: Temp Pulse Resp BP Pulse Ox 97.7 F 78 16 129/53 H 96 02/28/18 11:09 02/28/18 11:09 02/28/18 11:09 02/28/18 11:09 02/28/18 11:09 Intake & Output 02/27/18 02/28/18 03/01/18 06:59 06:59 06:59 Intake Total 530 250 Output Total 0 Balance 530 250 General appearance: PRESENT: no acute distress, cooperative, obese, well- developed, well-nourished Head exam: PRESENT: atraumatic, normocephalic Mouth exam: PRESENT: moist, tongue midline Respiratory exam: PRESENT: other - Good airflow bilaterally. No wheeze or rhonchi appreciated. Cardiovascular exam: PRESENT: RRR, +S1, +S2 GI/Abdominal exam: PRESENT: normal bowel sounds, soft. ABSENT: distended, guarding, mass, organolmegaly, rebound, tenderness Rectal exam: PRESENT: deferred Extremities exam: PRESENT: other - Trace edema bilateral lower extremities. Musculoskeletal exam: PRESENT: full ROM, other - Strength is 5 out of 5 bilateral upper and lower extremities. It is equal bilaterally. Neurological exam: PRESENT: alert, awake, oriented to person, oriented to place, oriented to time, oriented to situation, CN II-XII grossly intact. ABSENT: motor sensory deficit Psychiatric exam: PRESENT: normal mood, other - Somewhat blunted affect Results Laboratory Results: 02/28/18 07:59 02/28/18 07:59 02/27/18 02/27/18 02/27/18 15:17 15:17 15:17 WBC 7.8 RBC 4.85 Hgb 13.1 Hct 40.9 MCV 85 MCH 27.1 MCHC 32.1 RDW 19.8 H Plt Count 253 Sodium 137.6 Cancelled Potassium 5.2 H Cancelled Chloride 94 L Cancelled Carbon Dioxide 25 Cancelled Anion Gap 19 Cancelled BUN 40 H Cancelled Creatinine 9.86 H Cancelled Est GFR ( Amer) 5 L Cancelled Est GFR (Non-Af Amer) 4 L Cancelled Glucose 142 H Cancelled Calcium 10.3 H Cancelled Phosphorus 7.6 H Magnesium 2.2 02/28/18 02/28/18 07:59 07:59 WBC 8.9 RBC 4.38 Hgb 12.1 Hct 37.4 MCV 85 MCH 27.7 MCHC 32.4 RDW 19.9 H Plt Count 234 Sodium 141.7 Potassium 3.6 D Chloride 97 L Carbon Dioxide 32 H Anion Gap 13 BUN 17 D Creatinine 5.64 H Est GFR ( Amer) 9 L Est GFR (Non-Af Amer) 8 L Glucose 110 Calcium 9.0 Phosphorus Magnesium 01/30/18 01/30/18 01/30/18 22:08 22:08 22:08 Creatine Kinase 48 CK-MB (CK-2) 0.76 Troponin I 0.054 NT-Pro-B Natriuret Pep 36150 H 01/31/18 01/31/18 01/31/18 04:27 04:27 13:17 Creatine Kinase 47 72 CK-MB (CK-2) 0.96 Troponin I 0.068 NT-Pro-B Natriuret Pep 01/31/18 01/31/18 01/31/18 13:17 18:20 18:20 Creatine Kinase 58 CK-MB (CK-2) 1.53 1.59 Troponin I 0.079 0.081 NT-Pro-B Natriuret Pep 02/07/18 02/07/18 02/08/18 19:00 19:00 04:20 Creatine Kinase 376 H 348 H CK-MB (CK-2) 1.20 Troponin I 0.110 NT-Pro-B Natriuret Pep 02/08/18 02/08/18 02/08/18 04:20 08:47 11:45 Creatine Kinase 296 H CK-MB (CK-2) 1.20 1.10 Troponin I 0.811 1.090 NT-Pro-B Natriuret Pep Impressions: Gastric Emptying Nuclear Medicine 01/30/18 00:00 IMPRESSION: No emptying of the administered activity from the stomach over 2 hours. KUB X-Ray 02/02/18 11:00 IMPRESSION: THE TIP OF THE NASOGASTRIC TUBE IN THE STOMACH. Abdomen Ultrasound 02/03/18 00:00 IMPRESSION: Post cholecystectomy. Otherwise unremarkable study Abdomen/Pelvis CT 02/03/18 07:00 IMPRESSION: Small bowel obstruction with transition point in the midline pelvis. Head CT 02/08/18 00:00 IMPRESSION: No significant change. Chronic white matter changes. Focal encephalomalacia medial left occipital lobe EVIDENCE OF ACUTE STROKE: NO. Chest X-Ray 02/17/18 10:15 IMPRESSION: Stable enlarged cardiac silhouette without additional evidence of acute cardiopulmonary process. Modified Barium Swallow 02/23/18 00:00 IMPRESSION: NO EVIDENCE OF PENETRATION OR ASPIRATION.PLEASE SEE SPEECH PATHOLOGIST REPORT FOR OTHER FINDINGS AND RECOMMENDATIONS. Head MRI 02/24/18 00:00 IMPRESSION: Microvascular ischemia. 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 No acute intracranial process. EVIDENCE OF ACUTE STROKE: NO. Assessment & Plan - Diagnosis (1) Acute respiratory failure with hypoxia Is this a current diagnosis for this admission?: Yes (2) Diabetes mellitus type 2 in obese Is this a current diagnosis for this admission?: Yes (3) Diabetic gastroparesis Is this a current diagnosis for this admission?: Yes (4) Diastolic dysfunction Is this a current diagnosis for this admission?: Yes (5) Dysphagia Is this a current diagnosis for this admission?: Yes (6) Small bowel obstruction Is this a current diagnosis for this admission?: Yes (7) Anemia in chronic kidney disease Qualifiers: Chronic kidney disease stage: stage 3 (moderate) Qualified Code(s): N18.3 - Chronic kidney disease, stage 3 (moderate); D63.1 - Anemia in chronic kidney disease; D63.1 - Anemia in chronic kidney disease Is this a current diagnosis for this admission?: Yes (8) Encephalopathy, unspecified Is this a current diagnosis for this admission?: Yes - Time Time Spent with patient: 15-24 minutes Medications reviewed and adjusted accordingly: Yes - Inpatient Certification Based on my medical assessment, after consideration of the patient's comorbidities, presenting symptoms, or acuity I expect that the services needed warrant INPATIENT care.: No I certify that my determination is in accordance with my understanding of Medicare's requirements for reasonable and necessary INPATIENT services [42 CFR 412.3e].: No - Plan Summary Plan Summary: 1. Acute respiratory failure. Resolved. Status post extubation. 2. SBO. Status post repair and lysis of adhesions. Tolerating diet. Diet per speech recommendations. 3. Dysphagia. Diet per speech recommendations. Some oral medications have been changed to IV to accommodate the patient. May be related to intubation. Modified barium swallow completed earlier in admission. 4. End-stage renal disease. HD dependent. Dialyzed today. Nephrology's assistance throughout her admission is and was appreciated. 5. Metabolic encephalopathy. Seems this morning she was close to her baseline. MRI shows previous CVA and microvascular disease as it was obtained since admission. EEG shows generalized slowing. Seem to be slightly more confused as the day went on. No recent labs, and thought this may be related to the need for dialysis. Reevaluate postdialysis. Check labs. 6. Diabetic gastroparesis. Continue Reglan. 7. Hypotension thought to be related to volume depletion and dehydration. Disposition-transfer to [facility] was cancelled. I was unable to find an appropriate reason for transfer. Family is agreeable to rehab at [facility]. Discharged to [facility] today. Patient is also agreeable.
[2018-02-28] MEDS: INSULIN LISPRO 100 UNIT/ML 3 ML VIAL SUBCUT PRN (17:05)
[2018-02-28] MEDS: FAMOTIDINE 20 MG TABLET PO SCH (21:24)
[2018-02-28] MEDS: INSULIN GLARGINE,HUM.REC.ANLOG 300 UNIT/3 ML INSULN.PEN SUBCUT SCH (21:25)
[2018-03-01] MEDS ORDERED: NORMAL SALINE 1000 ML 1,000 ML IV PRN (05:00)
[2018-03-01] MEDS: HEPARIN SOD (PORCINE) 5,000 UNIT/ML 1 ML SYRINGE SUBCUT SCH ×2 (05:05→13:59)
[2018-03-01 05:49] LABS: ABSOLUTE EOSINOPHILS # (AUTO) 0.2 10^3/uL (0.0-0.6); ABSOLUTE LYMPHOCYTES (AUTO) 1.9 10^3/uL (0.5-4.7); ABSOLUTE MONOCYTES (AUTO) 1.1 10^3/uL (0.1-1.4); BASOPHILS % (AUTO) 0.4 % (0-2); HEMATOCRIT 36.2 % (36.0-47.0); HEMOGLOBIN 11.6 g/dL (12.0-15.5); LYMPHOCYTES % (AUTO) 23.2 % (13-45); MEAN CORPUSCULAR HEMOGLOBIN 27.3 pg (27.0-33.4); MEAN CORPUSCULAR HGB CONC 32.1 g/dL (32.0-36.0); MEAN CORPUSCULAR VOLUME 85 fl (80-97); MONOCYTES % (AUTO) 13.2 % (3-13); PLATELET COUNT 218 10^3/uL (150-450); RED BLOOD COUNT 4.26 10^6/uL (3.72-5.28); RED CELL DISTRIBUTION WIDTH 19.6 % (11.5-14.0); SEGMENTED NEUTROPHILS % (AUTO) 60.2 % (42-78); TOTAL CELLS COUNTED % (AUTO) 100 %; WHITE BLOOD COUNT 8.3 10^3/uL (4.0-10.5)
[2018-03-01 06:09] LABS: ANION GAP 13 (5-19); BLOOD UREA NITROGEN 22 mg/dL (7-20); CARBON DIOXIDE 29 mmol/L (22-30); CHLORIDE 99 mmol/L (98-107); GLUCOSE 133 mg/dL (75-110); POTASSIUM 3.7 mmol/L (3.6-5.0); SODIUM 140.5 mmol/L (137-145)
[2018-03-01] MEDS: METOCLOPRAMIDE HCL 10 MG TABLET PO SCH ×3 (07:22→16:01)
[2018-03-01 09:05] LABS: PHOSPHORUS 5.5 mg/dL (2.5-4.5)
--- NOTE | 2018-03-01 12:03 | PDOC TRANSFER SUMMARY ---
General - Admit/Disc Date/PCP Admission Date/Primary Care Provider: 01/30/18 18:08 ROBERTO SALDANA MD Discharge Date: 03/01/18 - Discharge Diagnosis (1) Acute respiratory failure with hypoxia Is this a current diagnosis for this admission?: Yes Summary: 03/01/2018 patient admitted with small bowel obstruction and an acute respiratory failure with hypoxia status post intubation and extubation. Patient is doing well. Pulse ox is 90-94% on room air today. Respiratory failure with hypoxia is resolved. (2) Small bowel obstruction Is this a current diagnosis for this admission?: Yes Summary: 03/01/2018 patient was admitted with small bowel obstruction status post surgery. Has a long hospital stay she is in the ICU for several days. Patient is able to tolerate the oral feeds now. She is going to the longterm for rehab. (3) End stage renal disease on dialysis Is this a current diagnosis for this admission?: Yes Summary: 03/01/2018-patient is end-stage renal disease patient she is went for dialysis this morning. When she goes to the longterm she will continue the dialysis there. (4) Encephalopathy, unspecified Is this a current diagnosis for this admission?: Yes Summary: 03/01/2018-patient is alert and awake communicating well not in distress. CVA p er CT head during the hospital stay was negative. - Additional Information Resuscitation Status: Full Code Discharge Diet: As Tolerated - Renal Discharge Activity: Activity As Tolerated Home Medications: Midodrine HCl 10 mg PO ASDIR PRN 12/13/17 Calcitriol [Rocaltrol] 2 tab PO DAILY 01/31/18 Acetaminophen [Tylenol 325 mg Tablet] 650 mg PO Q4HP PRN tablet 02/26/18 Famotidine [Pepcid 20 mg Tablet] 20 mg PO QHS tablet 02/26/18 Insulin Glargine,Hum.rec.anlog [Lantus Insulin 100 Unit/mL] 16 unit SUBCUT QHS insuln.pen 02/26/18 Insulin Lispro [Humalog Insulin (Lispro) 100 unit/mL] 0 unit SUBCUT ACHS unit 02/26/18 Metoclopramide HCl [Reglan 10 mg Tablet] 5 mg PO AC tablet 02/26/18 Metoprolol Succinate [Toprol Xl 50 mg Tab.sr] 50 mg PO Q12 tab.sr.24h 02/26/18 Ondansetron [Zofran Odt 4 mg Tablet] 4 mg PO Q4HP PRN tab.rapdis 02/26/18 History of Present Illness Admission Date/PCP: 01/30/18 18:08 ROBERTO SALDANA MD History of Present Illness: . MARIOLA GAR is a 58 year old female with a past medical history of end- stage renal disease on maintenance hemodialysis, diabetes mellitus complicated with severe neuropathy that came to the emergency room for evaluation of persistent vomiting, nausea, generalized body weakness ,pruritus and many other complaints. The patient was evaluated in the emergency room, it was felt that she needed to be admitted to the hospital for further evaluation of her symptoms. Her primary felt that she probably had gastroparesis from autonomic neuropathy, and arranged a gastric emptying test. Hospital Course Hospital Course: Patient was well-known to the patient's primary from outpatient. Nuclear medicine gastric emptying study was done it was abnormal it demonstrated delayed emptying time consistent with gastroparesis. On February 01, 2018 the liver enzymes pattern was consistent with obstructive pattern and the primary suspected a pancreatic lesion and requested CT scan of the abdomen and pelvis without contrast, it demonstrated dilated scattered loops of bowel measuring up to 3 cm there was a transition point in the left lower quadrant consultation was obtained from surgery. The patient had laparotomy on 02/03/2018 she was found to have intra-abdominal adhesions and internal hernia adjacent to the rectum with small bowel incarceration. The patient underwent open lysis of the adhesions with reduction of internal hernia. She has been n.p.o. for a couple of days. Patient is on hemodialysis and was seen by nephrology. She has been undergoing hemodialysis during hospital stay of low blood pressure about 3 days ago requiring the use of pressors including vasopressin and norepinephrine. Because of the low blood pressure troponin was drawn slightly elevated, peaked at 1 significance was not clear. The patient improved and was transferred out of the critical care unit. The patient was seen by binder cutter Dr. Edmonds. CT head was done which was negative for any acute CVA, patient had a history of CVA she is also on psychotropic drug before this admission the combination of anesthesia, sedation with propofol could be partly responsible for the encephalopathy. Patient's family member RN came from [facility]note 3] and was requesting for transfer to [facility]. [facility] accepted in transfer based on availability of bed. The patient has had an extensive workup. The patient appears to be at her baseline. Physical Exam Vital Signs: Temp Pulse Resp BP Pulse Ox 97.5 F 83 16 134/53 H 100 03/01/18 08:37 03/01/18 08:37 03/01/18 08:37 03/01/18 08:37 03/01/18 08:37 Intake & Output 02/28/18 03/01/18 03/02/18 06:59 06:59 06:59 Intake Total 250 675 Output Total 0 Balance 250 675 Weight 96 kg General appearance: PRESENT: no acute distress Head exam: PRESENT: atraumatic Eye exam: PRESENT: PERRLA Mouth exam: PRESENT: moist Neck exam: ABSENT: carotid bruit, JVD, lymphadenopathy, thyromegaly Respiratory exam: PRESENT: clear to auscultation charity. ABSENT: rales, rhonchi, wheezes Cardiovascular exam: PRESENT: RRR. ABSENT: diastolic murmur, rubs, systolic murmur GI/Abdominal exam: PRESENT: normal bowel sounds, soft. ABSENT: distended, guarding, mass, organolmegaly, rebound, tenderness Extremities exam: PRESENT: full ROM. ABSENT: calf tenderness, clubbing, pedal edema Neurological exam: PRESENT: alert, awake Psychiatric exam: PRESENT: appropriate affect, normal mood. ABSENT: homicidal ideation, suicidal ideation Results Laboratory Results: 03/01/18 05:25 03/01/18 05:25 03/01/18 03/01/18 03/01/18 05:25 05:25 05:25 WBC 8.3 RBC 4.26 Hgb 11.6 L Hct 36.2 MCV 85 MCH 27.3 MCHC 32.1 RDW 19.6 H Plt Count 218 Seg Neutrophils % 60.2 Lymphocytes % 23.2 Monocytes % 13.2 H Eosinophils % 3.0 Basophils % 0.4 Absolute Neutrophils 5.0 Absolute Lymphocytes 1.9 Absolute Monocytes 1.1 Absolute Eosinophils 0.2 Absolute Basophils 0.0 Sodium 140.5 Potassium 3.7 Chloride 99 Carbon Dioxide 29 Anion Gap 13 BUN 22 H Creatinine 7.53 H Est GFR ( Amer) 7 L Est GFR (Non-Af Amer) 6 L Glucose 133 H Calcium 9.0 Phosphorus 5.5 H Magnesium 1.9 01/30/18 01/30/1818 22:08 22:08 22:08 Creatine Kinase 48 CK-MB (CK-2) 0.76 Troponin I 0.054 NT-Pro-B Natriuret Pep 06061 H 01/31/18 01/31/18 01/31/18 04:27 04:27 13:17 Creatine Kinase 47 72 CK-MB (CK-2) 0.96 Troponin I 0.068 NT-Pro-B Natriuret Pep 01/31/18 01/31/18 01/31/18 13:17 18:20 18:20 Creatine Kinase 58 CK-MB (CK-2) 1.53 1.59 Troponin I 0.079 0.081 NT-Pro-B Natriuret Pep 02/07/18 02/07/18 02/08/18 19:00 19:00 04:20 Creatine Kinase 376 H 348 H CK-MB (CK-2) 1.20 Troponin I 0.110 NT-Pro-B Natriuret Pep 02/08/18 02/08/18 02/08/18 04:20 08:47 11:45 Creatine Kinase 296 H CK-MB (CK-2) 1.20 1.10 Troponin I 0.811 1.090 NT-Pro-B Natriuret Pep Impressions: Gastric Emptying Nuclear Medicine 01/30/18 00:00 IMPRESSION: No emptying of the administered activity from the stomach over 2 hours. KUB X-Ray 02/02/18 11:00 IMPRESSION: THE TIP OF THE NASOGASTRIC TUBE IN THE STOMACH. Abdomen Ultrasound 02/03/18 00:00 IMPRESSION: Post cholecystectomy. Otherwise unremarkable study Abdomen/Pelvis CT 02/03/18 07:00 IMPRESSION: Small bowel obstruction with transition point in the midline pelvis. Head CT 02/08/18 00:00 IMPRESSION: No significant change. Chronic white matter changes. Focal encephalomalacia medial left occipital lobe EVIDENCE OF ACUTE STROKE: NO. Chest X-Ray 02/17/18 10:15 IMPRESSION: Stable enlarged cardiac silhouette without additional evidence of acute cardiopulmonary process. Modified Barium Swallow 02/23/18 00:00 IMPRESSION: NO EVIDENCE OF PENETRATION OR ASPIRATION.PLEASE SEE SPEECH PATHOLOGIST REPORT FOR OTHER FINDINGS AND RECOMMENDATIONS. Head MRI 02/24/18 00:00 IMPRESSION: Microvascular ischemia. 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 No acu te intracranial process. EVIDENCE OF ACUTE STROKE: NO. Transfer Plan - Time Spent with Patient Time spent with patient: Greater than 30 Minutes Qualifiers - * PATIENT BEING DISCHARGED WITH ANY OF THE FOLLOWING DIAGNOSIS: No VTE patient discharged on overlapping Therapy?: Yes
--- NOTE | 2018-03-01 13:20 | PDOC PROGRESS REPORT ---
Subjective Progress Note for:: 03/01/18 Subjective:: I am seeing the patient on initiation of hemodialysis this afternoon. Patient is looking much better. She is much more awake and is actually answering questions. She tells me that she is able to swallow now and eat and her throat is not hurting that much anymore. She denies any chest pains no shortness of breath nor pain anywhere in her body. Reason For Visit: PERSISTENT VOMITING ? DIABETES Physical Exam Vital Signs: Temp Pulse Resp BP Pulse Ox 97.5 F 83 16 134/53 H 100 03/01/18 08:37 03/01/18 08:37 03/01/18 08:37 03/01/18 08:37 03/01/18 08:37 Intake & Output 02/28/18 03/01/18 03/02/18 06:59 06:59 06:59 Intake Total 250 675 Output Total 0 Balance 250 675 Weight 96 kg Vitals on dialysis: Blood pressure 149/68, heart rate of 76, blood flow rate of 450 mL/min, dialysate flow rate of 800ml/min. Exam: General appearance: PRESENT: no acute distress, cooperative, well-developed, well-nourished Head exam: PRESENT: atraumatic, normocephalic Eye exam: PRESENT: conjunctiva pink, PERRLA. ABSENT: scleral icterus Neck exam: ABSENT: JVD Respiratory exam: PRESENT: Diminished breath sounds. ABSENT: crackles, rales, rhonchi, unlabored, wheezes Cardiovascular exam: PRESENT: Regular rate rhythm -+S1, +S2. ABSENT: diastolic murmur, systolic murmur GI/Abdominal exam: PRESENT: normal bowel sounds, soft. ABSENT: guarding, mass, tenderness Extremities exam: ABSENT: No edema Neurological exam: PRESENT: alert, awake, oriented to person, place and time. Skin exam: PRESENT: dry, warm, Cardiovascular exam: PRESENT: +S1, +S2, systolic murmur GI/Abdominal exam: PRESENT: normal bowel sounds, soft. ABSENT: organomegaly, tenderness Results Laboratory Results: 03/01/18 05:25 03/01/18 05:25 03/01/18 03/01/18 03/01/18 05:25 05:25 05:25 WBC 8.3 RBC 4.26 Hgb 11.6 L Hct 36.2 MCV 85 MCH 27.3 MCHC 32.1 RDW 19.6 H Plt Count 218 Seg Neutrophils % 60.2 Lymphocytes % 23.2 Monocytes % 13.2 H Eosinophils % 3.0 Basophils % 0.4 Absolute Neutrophils 5.0 Absolute Lymphocytes 1.9 Absolute Monocytes 1.1 Absolute Eosinophils 0.2 Absolute Basophils 0.0 Sodium 140.5 Potassium 3.7 Chloride 99 Carbon Dioxide 29 Anion Gap 13 BUN 22 H Creatinine 7.53 H Est GFR ( Amer) 7 L Est GFR (Non-Af Amer) 6 L Glucose 133 H Calcium 9.0 Phosphorus 5.5 H Magnesium 1.9 01/30/18 01/30/18 01/30/18 22:08 22:08 22:08 Creatine Kinase 48 CK-MB (CK-2) 0.76 Troponin I 0.054 NT-Pro-B Natriuret Pep 31358 H 01/31/18 01/31/18 01/31/18 04:27 04:27 13:17 Creatine Kinase 47 72 CK-MB (CK-2) 0.96 Troponin I 0.068 NT-Pro-B Natriuret Pep 01/31/18 01/31/18 01/31/18 13:17 18:20 18:20 Creatine Kinase 58 CK-MB (CK-2) 1.53 1.59 Troponin I 0.079 0.081 NT-Pro-B Natriuret Pep 02/07/18 02/07/18 02/08/18 19:00 19:00 04:20 Creatine Kinase 376 H 348 H CK-MB (CK-2) 1.20 Troponin I 0.110 NT-Pro-B Natriuret Pep 02/08/18 02/08/18 02/08/18 04:20 08:47 11:45 Creatine Kinase 296 H CK-MB (CK-2) 1.20 1.10 Troponin I 0.811 1.090 NT-Pro-B Natriuret Pep Impressions: Gastric Emptying Nuclear Medicine 01/30/18 00:00 IMPRESSION: No emptying of the administered activity from the stomach over 2 hours. KUB X-Ray 02/02/18 11:00 IMPRESSION: THE TIP OF THE NASOGASTRIC TUBE IN THE STOMACH. Abdomen Ultrasound 02/03/18 00:00 IMPRESSION: Post cholecystectomy. Otherwise unremarkable study Abdomen/Pelvis CT 02/03/18 07:00 IMPRESSION: Small bowel obstruction with transition point in the midline pelvis. Head CT 02/08/18 00:00 IMPRESSION: No significant change. Chronic white matter changes. Focal encephalomalacia medial left occipital lobe EVIDENCE OF ACUTE STROKE: NO. Chest X-Ray 02/17/18 10:15 IMPRESSION: Stable enlarged cardiac silhouette without additional evidence of acute cardiopulmonary process. Modified Barium Swallow 02/23/18 00:00 IMPRESSION: NO EVIDENCE OF PENETRATION OR ASPIRATION.PLEASE SEE SPEECH PATHOLOGIST REPORT FOR OTHER FINDINGS AND RECOMMENDATIONS. Head MRI 02/24/18 00:00 IMPRESSION: Microvascular ischemia. 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 No acut e intracranial process. EVIDENCE OF ACUTE STROKE: NO. Assessment & Plan - Diagnosis (1) End stage chronic kidney disease Is this a current diagnosis for this admission?: Yes Plan: We will do dialysis today for 3 hours, using the patient's AV fistula, with 3 potassium bath, blood flow rate of 450 mL per minute, dialysate flow rate of 800 mL per minute, ultrafiltration 1-1.5 L as tolerated, no heparin and no Procrit. Patient will be monitored throughout dialysis treatment by our dialysis nurse. Will adjust treatment accordingly. Patient will be transferred to rehab today after dialysis. Patient's next dialysis will be on her regular dialysis schedule at [facility]. (2) Anemia in chronic kidney disease Qualifiers: Chronic kidney disease stage: stage 3 (moderate) Qualified Code(s): N18.3 - Chronic kidney disease, stage 3 (moderate); D63.1 - Anemia in chronic kidney disease; D63.1 - Anemia in chronic kidney disease Is this a current diagnosis for this admission?: Yes Plan: Does not require Procrit at this time. (3) Hypotension Is this a current diagnosis for this admission?: Yes Plan: This could be partly due to volume depletion and dehydration. We will do minimal ultrafiltration today and adjust accordingly. Her blood pressure today is better. (4) Dysphagia Is this a current diagnosis for this admission?: Yes Plan: Improved. (5) Diabetic gastroparesis Is this a current diagnosis for this admission?: Yes Plan: On Reglan. (6) Small bowel obstruction Is this a current diagnosis for this admission?: Yes Plan: Status post exploratory laparotomy, lysis of adhesions, and reduction of incarcerated hernia. 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
[2018-03-01 20:48] VITALS: BP 99/57
== END 2018-03-01 21:00 | DRG 335 ==
LOC: ER 13:52 → OBSVTOIN 18:08 → EH 18:08 → 5 20:32 → ICU 02-03 19:43 → 3W 02-17 19:57 → 4S 02-23 23:20
PROVIDERS: ADMIT Internal Medicine; ATTEND Internal Medicine
PROC: 5A09457 Assistance with Respiratory Ventilation, 24-96 Consecutive Hours, Continuous Positive Airway Pressure (ICD-10-PCS; 2018-01-31)
PROC: 5A1D70Z Performance of Urinary Filtration, Intermittent, Less than 6 Hours Per Day (ICD-10-PCS; 2018-02-01)
PROC: 0WQF0ZZ Repair Abdominal Wall, Open Approach (ICD-10-PCS; 2018-02-03)
PROC: 5A1955Z Respiratory Ventilation, Greater than 96 Consecutive Hours (ICD-10-PCS; 2018-02-03)
PROC: 0BH17EZ Insertion of Endotracheal Airway into Trachea, Via Natural or Artificial Opening (ICD-10-PCS; 2018-02-03)
PROC: 02HV33Z Insertion of Infusion Device into Superior Vena Cava, Percutaneous Approach (ICD-10-PCS; 2018-02-03)
PROC: 5A1D70Z Performance of Urinary Filtration, Intermittent, Less than 6 Hours Per Day (ICD-10-PCS; 2018-02-03)
PROC: 0DN80ZZ Release Small Intestine, Open Approach (ICD-10-PCS; principal; 2018-02-03 17:30)
PROC: 5A1D70Z Performance of Urinary Filtration, Intermittent, Less than 6 Hours Per Day (ICD-10-PCS; 2018-02-06)
PROC: 3E0F73Z Introduction of Anti-inflammatory into Respiratory Tract, Via Natural or Artificial Opening (ICD-10-PCS; 2018-02-07)
PROC: 5A1D70Z Performance of Urinary Filtration, Intermittent, Less than 6 Hours Per Day (ICD-10-PCS; 2018-02-08)
PROC: 5A1D70Z Performance of Urinary Filtration, Intermittent, Less than 6 Hours Per Day (ICD-10-PCS; 2018-02-10)
PROC: 5A09557 Assistance with Respiratory Ventilation, Greater than 96 Consecutive Hours, Continuous Positive Airway Pressure (ICD-10-PCS; 2018-02-11)
PROC: 5A1D70Z Performance of Urinary Filtration, Intermittent, Less than 6 Hours Per Day (ICD-10-PCS; 2018-02-13)
PROC: 5A1D70Z Performance of Urinary Filtration, Intermittent, Less than 6 Hours Per Day (ICD-10-PCS; 2018-02-15)
PROC: 5A1D70Z Performance of Urinary Filtration, Intermittent, Less than 6 Hours Per Day (ICD-10-PCS; 2018-02-17)
PROC: 5A1D70Z Performance of Urinary Filtration, Intermittent, Less than 6 Hours Per Day (ICD-10-PCS; 2018-02-20)
PROC: 5A1D70Z Performance of Urinary Filtration, Intermittent, Less than 6 Hours Per Day (ICD-10-PCS; 2018-02-22)
PROC: 5A1D70Z Performance of Urinary Filtration, Intermittent, Less than 6 Hours Per Day (ICD-10-PCS; 2018-02-24)
PROC: 5A1D70Z Performance of Urinary Filtration, Intermittent, Less than 6 Hours Per Day (ICD-10-PCS; 2018-02-27)
PROC: 5A1D70Z Performance of Urinary Filtration, Intermittent, Less than 6 Hours Per Day (ICD-10-PCS; 2018-03-01)
DX: K43.6 Other and unspecified ventral hernia with obstruction, without gangrene (principal); N18.6 End stage renal disease; J96.01 Acute respiratory failure with hypoxia; K83.1 Obstruction of bile duct; I50.43 Acute on chronic combined systolic (congestive) and diastolic (congestive) heart failure; G93.41 Metabolic encephalopathy; I13.2 Hypertensive heart and chronic kidney disease with heart failure and with stage 5 chronic kidney disease, or end stage renal disease; Z68.41 Body mass index [BMI] 40.0-44.9, adult; E11.43 Type 2 diabetes mellitus with diabetic autonomic (poly)neuropathy; K31.84 Gastroparesis; E11.22 Type 2 diabetes mellitus with diabetic chronic kidney disease; E11.40 Type 2 diabetes mellitus with diabetic neuropathy, unspecified; I95.9 Hypotension, unspecified; G47.33 Obstructive sleep apnea (adult) (pediatric); R13.11 Dysphagia, oral phase; D63.1 Anemia in chronic kidney disease; E83.51 Hypocalcemia; E89.0 Postprocedural hypothyroidism; E11.319 Type 2 diabetes mellitus with unspecified diabetic retinopathy without macular edema; I25.10 Atherosclerotic heart disease of native coronary artery without angina pectoris; K21.9 Gastro-esophageal reflux disease without esophagitis; M10.9 Gout, unspecified; F32.9 Major depressive disorder, single episode, unspecified; E66.01 Morbid (severe) obesity due to excess calories; M32.9 Systemic lupus erythematosus, unspecified; E87.5 Hyperkalemia; K46.9 Unspecified abdominal hernia without obstruction or gangrene; G93.89 Other specified disorders of brain; B96.4 Proteus (mirabilis) (morganii) as the cause of diseases classified elsewhere; I25.2 Old myocardial infarction; Z78.1 Physical restraint status; Z79.899 Other long term (current) drug therapy; Z90.49 Acquired absence of other specified parts of digestive tract; Z79.4 Long term (current) use of insulin; Z88.0 Allergy status to penicillin; Z88.8 Allergy status to other drugs, medicaments and biological substances; Z88.6 Allergy status to analgesic agent; Z88.3 Allergy status to other anti-infective agents; Z91.040 Latex allergy status; Z91.14 Patient's other noncompliance with medication regimen; Z90.710 Acquired absence of both cervix and uterus; Z85.828 Personal history of other malignant neoplasm of skin; Z99.2 Dependence on renal dialysis
CPT/HCPCS: 00790; 36415; 70450; 70551; 71045; 74018; 74176; 74177; 74230; 76705; 78264; 80048; 80053; 80061; 80069; 80076; 80202; 82140; 82150; 82550; 82553; 82728; 82803; 82962; 83036; 83540; 83550; 83690; 83735; 83880; 83970; 84100; 84132; 84134; 84439; 84443; 84450; 84460; 84484; 85025; 85027; 85610; 85730; 87040; 87070; 87077; 87186; 87205; 87493; 93005; 93010; 93925; 93976; 94002; 94003; 94640; 94660; 94799; 95819; 96374; 96375; 99285; A9541; C1751; C9290; J0131; J0330; J0610; J0690; J0692; J1200; J1642; J1644; J1815; J2250; J2270; J2405; J2704; J2765; J3010; J3370; J3480; J3490; J7030; J7040; J7060; J7620; P9047; Q4081; S0119

== ENCOUNTER 2018-03-26 11:49 | Emergency (ER) | payer MEDICARE, MEDICAID ==
[2018-03-26] MEDS ORDERED: ONDANSETRON 4 MG TAB.RAPDIS PO ONE (12:22)
--- NOTE | 2018-03-26 12:24 | ER Document Report ---
ED Medical Screen (RME) - General Chief Complaint: Nausea/Vomiting Stated Complaint: VOMITING,COUGH Time Seen by Provider: 03/26/18 12:16 Primary Care Provider: ROBERTO SALDANA MD [Primary Care Provider] - Follow up as needed Mode of Arrival: Ambulatory Information source: Patient Notes: 58-year-old female with a history of hypertension, hyperlipidemia, diabetes, chronic renal failure on dialysis presents emergency department with complaints of nausea, vomiting, constipation, abdominal pain. Patient states that her abdominal pain is a pressure sensation in her lower abdomen. Patient thinks that it is due to the constipation. She states that she is tried suppositories without any help. Patient is requesting an enema in the emergency department. She denies any chest pain, shortness of breath, fever, chills. Patient states that she does not make any urine. She gets dialysis Tuesday, , Tuesday. She states that she had a full dialysis treatment yesterday. I have greeted and performed a rapid initial assessment of this patient. A comprehensive ED assessment and evaluation of the patient, analysis of test results and completion of the medical decision making process will be conducted by additional ED providers. PHYSICAL EXAMINATION: GENERAL: Well-appearing, well-nourished and in no acute distress. HEAD: Atraumatic, normocephalic. EYES: Pupils equal round extraocular movements intact, conjunctiva are normal. ENT: Nares patent NECK: Normal range of motion LUNGS: No respiratory distress Musculoskeletal: Normal range of motion NEUROLOGICAL: Normal speech PSYCH: Normal mood, normal affect. SKIN: Warm, Dry, normal turgor, no rashes or lesions noted. TRAVEL OUTSIDE OF THE [place] IN LAST 30 DAYS: No - Related Data Allergies/Adverse Reactions: labetalol [Labetalol] Allergy (Severe, Verified 03/26/18 11:53) swelling, sob Penicillins Allergy (Severe, Verified 03/26/18 11:53) itching duloxetine Allergy (Verified 03/26/18 11:53) latex Allergy (Verified 03/26/18 11:53) linagliptin [From Tradjenta] Allergy (Verified 03/26/18 11:53) terbinafine Allergy (Verified 03/26/18 11:53) Liraglutide [From Victoza] Adverse Reaction (Verified 03/26/18 11:53) nausea/vomitting Past Medical History - Past Medical History Cardiac Medical History: Reports: Hx Congestive Heart Failure, Hx Coronary Artery Disease, Hx Heart Attack - 2008, Hx Hypercholesterolemia, Hx Hypertension Pulmonary Medical History: Reports: Hx Sleep Apnea - On CPap Denies: Hx Asthma, Hx Bronchitis, Hx COPD, Hx Pneumonia Neurological Medical History: Reports: Hx Cerebrovascular Accident. Denies: Hx Seizures Endocrine Medical History: Reports: Hx Diabetes Mellitus Type 1, Hx Diabetes Mellitus Type 2, Hx Hypothyroidism Renal/ Medical History: Reports: Hx End Stage Renal Disease. Denies: Hx Peritoneal Dialysis GI Medical History: Reports: Hx Gastroesophageal Reflux Disease Musculoskeltal Medical History: Reports Hx Arthritis, Reports Hx Gout Psychiatric Medical History: Reports: Hx Depression Past Surgical History: Reports: Hx Appendectomy, Hx Section, Hx Cholecystectomy, Hx Hysterectomy, Hx Orthopedic Surgery - cancer removed from back, Other - parathyroidectomy, 3-1/2 glands removed on 01/13/2016; right adrenalectomy - Immunizations Hx Diphtheria, Pertussis, Tetanus Vaccination: Yes History of Influenza Vaccine for 11/2016 - 04/2017 Season: Unknown Physical Exam - Vital signs Vitals: Temp Pulse Resp BP Pulse Ox 97.6 F 64 16 185/66 H 100 03/26/18 11:59 03/26/18 11:59 03/26/18 11:59 03/26/18 11:59 03/26/18 11:59 Course - Vital Signs Vital signs: Temp Pulse Resp BP Pulse Ox 97.6 F 64 16 185/66 H 100 03/26/18 11:59 03/26/18 11:59 03/26/18 11:59 03/26/18 11:59 03/26/18 11:59 Doctor's Discharge - Discharge Referrals: ROBERTO SALDANA MD [Primary Care Provider] - Follow up as needed
[2018-03-26 13:12] LABS: ABSOLUTE BASOPHILS # (AUTO) 0.1 10^3/uL (0.0-0.2); ABSOLUTE LYMPHOCYTES (AUTO) 1.8 10^3/uL (0.5-4.7); ABSOLUTE MONOCYTES (AUTO) 0.7 10^3/uL (0.1-1.4); BASOPHILS % (AUTO) 0.7 % (0-2); EOSINOPHILS % (AUTO) 0.3 % (0-6); HEMATOCRIT 39.7 % (36.0-47.0); HEMOGLOBIN 12.9 g/dL (12.0-15.5); LYMPHOCYTES % (AUTO) 14.1 % (13-45); MEAN CORPUSCULAR HEMOGLOBIN 27.9 pg (27.0-33.4); MEAN CORPUSCULAR HGB CONC 32.4 g/dL (32.0-36.0); MEAN CORPUSCULAR VOLUME 86 fl (80-97); MONOCYTES % (AUTO) 5.8 % (3-13); PLATELET COUNT 330 10^3/uL (150-450); RED CELL DISTRIBUTION WIDTH 17.4 % (11.5-14.0); SEGMENTED NEUTROPHILS % (AUTO) 79.1 % (42-78); TOTAL CELLS COUNTED % (AUTO) 100 %; WHITE BLOOD COUNT 12.6 10^3/uL (4.0-10.5)
[2018-03-26 13:28] LABS: ALANINE AMINOTRANSFERASE < 6 U/L (9-52); ALBUMIN 4.3 g/dL (3.5-5.0); ALKALINE PHOSPHATASE 174 U/L (38-126); ANION GAP 15 (5-19); ASPARTATE AMINO TRANSFERASE 22 U/L (14-36); BILIRUBIN,DIRECT 0.7 mg/dL (0.0-0.4); BLOOD UREA NITROGEN 19 mg/dL (7-20); CALCIUM 9.6 mg/dL (8.4-10.2); CARBON DIOXIDE 30 mmol/L (22-30); CHLORIDE 97 mmol/L (98-107); GLUCOSE 202 mg/dL (75-110); LIPASE 124.7 U/L (23-300); POTASSIUM 4.3 mmol/L (3.6-5.0); SODIUM 141.7 mmol/L (137-145); TOTAL PROTEIN 7.9 g/dL (6.3-8.2)
[2018-03-26] MEDS ORDERED: PROMETHAZINE HCL 25 MG TABLET PO ONE (14:48)
--- NOTE | 2018-03-26 14:48 | ER Document Report ---
ED General - General Chief Complaint: Nausea/Vomiting Stated Complaint: VOMITING,COUGH Time Seen by Provider: 03/26/18 12:16 Primary Care Provider: ROBERTO SALDANA MD [Primary Care Provider] - Follow up as needed Mode of Arrival: Ambulatory Notes: Patient is a 58-year-old female with recent history for bowel obstruction and surgical intervention that presents to the emergency department for chief complaint of abdominal pain and constipation. Patient states she is been having abdominal pain and cramping over the past few days and has not had a bowel movement about 3 days, she is had some nausea and vomiting, and is concerned that she is doing with a bowel obstruction again. She is currently residing at a skilled rehab facility for rehab after her surgery. While over there she did have outpatient x-rays, that demonstrated nonspecific bowel gas pattern, but was transferred over here because of her complaints of pain in her concerns. She denies having any fevers, chills, night sweats, chest pain, shortness of breath, dysuria, hematuria. Patient is a dialysis patient, she has not missed any sessions of dialysis. Past Medical History: End-stage renal disease on dialysis, hypertension Past Surgical History: Dialysis AV fistula placement in the left upper extremity, laparoscopy and lysis of adhesions Social History: Currently resides in retirement facility, denies tobacco or alcohol use. Family History: Reviewed and noncontributory for presenting illness Allergies: Reviewed, see documented allergy list. REVIEW OF SYSTEMS: Other than noted above, the 12 point review of systems was reviewed with the patient and were negative, all pertinent findings are included in the HPI. PHYSICAL EXAMINATION: Vital signs reviewed, nursing noted reviewed. GENERAL: Obese female, appears mildly uncomfortable HEAD: Atraumatic, normocephalic. EYES: Eyes appear normal, extraocular movements intact, sclera anicteric, conjunctiva are normal. ENT: nares patent, oropharynx clear without exudates. Moist mucous membranes. NECK: Normal range of motion, supple without lymphadenopathy LUNGS: Breath sounds clear to auscultation bilaterally and equal. No wheezes rales or rhonchi. HEART: Regular rate and rhythm without murmurs ABDOMEN: Soft, obese, nontender, normoactive bowel sounds. No rebound, guarding, or rigidity. No masses appreciated. EXTREMITIES: Nontender, good range of motion, trace bilateral lower extremity edema. AV fistula noted in the left upper extremity. Positive thrill and bruit NEUROLOGICAL: No focal neurological deficits. Moves all extremities spontaneously Motor and sensory grossly intact on exam. PSYCH: Flat affect SKIN: Warm, Dry, normal turgor, no rashes or lesions noted on exposed skin TRAVEL OUTSIDE OF THE [place] IN LAST 30 DAYS: No - Related Data Allergies/Adverse Reactions: labetalol [Labetalol] Allergy (Severe, Verified 03/26/18 11:53) swelling, sob Penicillins Allergy (Severe, Verified 03/26/18 11:53) itching duloxetine Allergy (Verified 03/26/18 11:53) latex Allergy (Verified 03/26/18 11:53) linagliptin [From Tradjenta] Allergy (Verified 03/26/18 11:53) terbinafine Allergy (Verified 03/26/18 11:53) Liraglutide [From Victoza] Adverse Reaction (Verified 03/26/18 11:53) nausea/vomitting Past Medical History - General Information source: Patient - Social History Smoking Status: Unknown if Ever Smoked Family History: Reviewed & Not Pertinent Patient has suicidal ideation: No Patient has homicidal ideation: No - Past Medical History Cardiac Medical History: Reports: Hx Congestive Heart Failure, Hx Coronary Mague ry Disease, Hx Heart Attack - 2007, Hx Hypercholesterolemia, Hx Hypertension Pulmonary Medical History: Reports: Hx Sleep Apnea - On CPap Denies: Hx Asthma, Hx Bronchitis, Hx COPD, Hx Pneumonia Neurological Medical History: Reports: Hx Cerebrovascular Accident. Denies: Hx Seizures Endocrine Medical History: Reports: Hx Diabetes Mellitus Type 1, Hx Diabetes Mellitus Type 2, Hx Hypothyroidism Renal/ Medical History: Reports: Hx End Stage Renal Disease. Denies: Hx Peritoneal Dialysis GI Medical History: Reports: Hx Gastroesophageal Reflux Disease Musculoskeletal Medical History: Reports Hx Arthritis, Reports Hx Gout Psychiatric Medical History: Reports: Hx Depression Past Surgical History: Reports: Hx Appendectomy, Hx Section, Hx Cholecystectomy, Hx Hysterectomy, Hx Orthopedic Surgery - cancer removed from back, Other - parathyroidectomy, 3-1/2 glands removed on 01/13/2016; right adrenalectomy - Immunizations Hx Diphtheria, Pertussis, Tetanus Vaccination: Yes Hx Pneumococcal Vaccination: 02/18/15 Physical Exam - Vital signs Vitals: Temp Pulse Resp BP Pulse Ox 97.6 F 64 16 185/66 H 100 03/26/18 11:59 03/26/18 11:59 03/26/18 11:59 03/26/18 11:59 03/26/18 11:59 Course - Re-evaluation Re-evalutation: Patient seen and examined vital signs reviewed. Laboratory data and imaging were ordered as appropriate for the patient's presenting symptoms and complaint, with consideration of any critical or life threatening conditions that may be associated with their obtained history and exam as noted above. Results were reviewed when available and demonstrated negative CT imaging with oral contrast, patient was noted to be constipated, mild leukocytosis, nonspecific, no outward signs or focal signs of infection The patient was re-evaluated and was stable Evaluation was most consistent with patient, patient prescribed MiraLAX to help with her bowel movements, and discharged back to the retirement facility. Results were discussed with the patient at this point, after careful consideration I feel that that patient can be discharged from the emergency department, the patient was educated treatments and reasons to return to the emergency department based on their presumed diagnosis as noted above, they were advised to followup with a primary care physician in 2-3 days. Patient was agreeable to plan of care. *Note is created using voice recognition software and may contain spelling, syntax or grammatical errors. Laboratory 03/26/18 03/26/18 12:45 12:45 WBC 12.6 H RBC 4.60 Hgb 12.9 Hct 39.7 MCV 86 MCH 27.9 MCHC 32.4 RDW 17.4 H Plt Count 330 Seg Neutrophils % 79.1 H Lymphocytes % 14.1 Monocytes % 5.8 Eosinophils % 0.3 Basophils % 0.7 Absolute Neutrophils 10.0 H Absolute Lymphocytes 1.8 Absolute Monocytes 0.7 Absolute Eosinophils 0.0 Absolute Basophils 0.1 Sodium 141.7 Potassium 4.3 Chloride 97 L Carbon Dioxide 30 Anion Gap 15 BUN 19 Creatinine 4.76 H Est GFR ( Amer) 11 L Est GFR (Non-Af Amer) 9 L Glucose 202 H Calcium 9.6 Total Bilirubin 1.0 Direct Bilirubin 0.7 H Neonat Total Bilirubin Not Reportable Neonat Direct Bilirubin Not Reportable Neonat Indirect Bili Not Reportable AST 22 ALT < 6 L Alkaline Phosphatase 174 H Total Protein 7.9 Albumin 4.3 Lipase 124.7 Abdomen/Pelvis CT 03/26/18 13:49 IMPRESSION: NO SIGNIFICANT OR ACUTE PROCESS IN THE ABDOMEN OR PELVIS. - Vital Signs Vital signs: Temp Pulse Resp BP Pulse Ox 97.6 F 64 20 189/95 H 100 03/26/18 11:59 03/26/18 11:59 03/26/18 17:01 03/26/18 17:01 03/26/18 17:01 - Laboratory Result Diagrams: 03/26/18 12:45 03/26/18 12:45 Laboratory results interpreted by me: 03/26/18 03/26/18 12:45 12:45 WBC 12.6 H RDW 17.4 H Seg Neutrophils % 79.1 H Absolute Neutrophils 10.0 H Chloride 97 L Creatinine 4.76 H Est GFR ( Amer) 11 L Est GFR (Non-Af Amer) 9 L Glucose 202 H Direct Bilirubin 0.7 H ALT < 6 L Alkaline Phosphatase 174 H - EKG Interpretation by Me Additional EKG results interpreted by me: EKG demonstrates sinus rhythm with a ventricular rate of 62 bpm, normal axis, QTC is prolonged at 560 ms, there is a slight T wave inversion in lead aVL, no ST changes, this is compared with prior EKG from 02/07/2018, without significant change, QTC is similar to prior. Discharge - Discharge Clinical Impression: Nausea & vomiting Qualifiers: Vomiting type: unspecified Vomiting Intractability: non-intractable Qualified Code(s): R11.2 - Nausea with vomiting, unspecified Constipation Qualifiers: Constipation type: unspecified constipation type Qualified Code(s): K59.00 - Constipation, unspecified Condition: Stable Disposition: HOME-SNF (ED ONLY) Instructions: Constipation ([facility]), Vomiting ([facility]) Additional Instructions: Please take the prescribed MiraLAX daily, to help with your constipation. If you have worsening symptoms or worsening abdominal pain or distention, do not hesitate to return to the emergency department. Prescriptions: Polyethylene Glycol 3350 [Miralax] 17 gm PO DAILY #[phone] gm Referrals: ROBERTO SALDANA MD [Primary Care Provider] - Follow up as needed
--- NOTE | 2018-03-26 16:48 | RADIOLOGY REPORT (SQ) ---
EXAM DESCRIPTION: CT ABD/PELVIS ORAL ONLY COMPLETED DATE/TIME: 03/26/2018 4:27 pm REASON FOR STUDY: abdominal pain, possible sbo COMPARISON: 02/03/2018. TECHNIQUE: CT scan of the abdomen and pelvis performed without intravenous or oral contrast. Images reviewed with lung, soft tissue, and bone windows. Reconstructed coronal and sagittal MPR images revi ewed. All images stored on PACS. All CT scanners at this facility use dose modulation, iterative reconstruction, and/or weight based d osing when appropriate to reduce radiation dose to as low as reasonably achievable (ALARA). [facility]: Dose Right [facility]: CareDose [facility]: Dose Right [facility]: Teradose 4D [facility]: [employer] RADIATION DOSE: CT Rad equipment meets quality standard of care and radiation dose reduction techniq ues were employed. CTDIvol: 18.8 mGy. DLP: 1012 mGy-cm.mGy. LIMITATIONS: None. FINDINGS: LOWER CHEST: No abnormality. . NON-CONTRASTED LIVER, SPLEEN, ADRENALS: Liver: No abnormality. Spleen: No abnormality. Adrenals: Left adrenal unchanged. Status post right adrenalectomy PANCREAS: No abnormality. GALLBLADDER: Absent. . RIGHT KIDNEY AND URETER: No abnormality. LEFT KIDNEY AND URETER: No abnormality. AORTA AND RETROPERITONEUM: Atherosclerotic change of the abdominal aorta and iliac vessels. Atherosc lerotic change in inferior mesenteric artery, celiac and superior mesenteric artery. Atherosclerotic change origin of renal arteries. . No retroperitoneal masses or adenopathy. BOWEL AND PERITONEAL CAVITY: No obvious masses or inflammatory changes. No free fluid. APPENDIX: Absent. PELVIS, BLADDER, AND ABDOMINAL WALL: Urinary bladder: No abnormality. Uterus: Absent. BONES: Lumbar spondylosis. Degenerative disc disease L4-5 and L5-S1. Degenerative disc disease T10- 11. . OTHER: Postsurgical changes of the abdominal wall. IMPRESSION: NO SIGNIFICANT OR ACUTE PROCESS IN THE ABDOMEN OR PELVIS. COMMENT: Quality ID # [id number]: Final reports with documentation of one or more dose reduction techniques (e.g., Automated exposure control, adjustment of the mA and/or kV according to patient size, use of iterative reconstruction technique) TECHNICAL DOCUMENTATION: JOB ID: [id number] SC-69 2010 [employer]- All Rights Reserved Reading location - IP/workstation name: [email or web address]
[2018-03-26 17:42] VITALS: BP 189/95
--- NOTE | 2018-03-27 00:07 | EKG REPORT ---
SEVERITY:- ABNORMAL ECG - SINUS RHYTHM PROLONGED QT INTERVAL : Confirmed by: Lexii Thorne 27-Mar-2018 00:06:57
== END 2018-03-26 17:48 ==
LOC: ER 11:49
DX: K59.00 Constipation, unspecified (principal); R11.2 Nausea with vomiting, unspecified; Z87.19 Personal history of other diseases of the digestive system; Z98.890 Other specified postprocedural states; I12.0 Hypertensive chronic kidney disease with stage 5 chronic kidney disease or end stage renal disease; E11.22 Type 2 diabetes mellitus with diabetic chronic kidney disease; N18.6 End stage renal disease; Z99.2 Dependence on renal dialysis; E66.9 Obesity, unspecified; I25.10 Atherosclerotic heart disease of native coronary artery without angina pectoris; Z88.8 Allergy status to other drugs, medicaments and biological substances; Z88.0 Allergy status to penicillin; Z91.040 Latex allergy status
CPT/HCPCS: 36415; 74176; 80053; 83690; 85025; 93005; 93010; 99284

== ENCOUNTER → 2019-09-21 | Outpatient (CLI) | payer MEDICARE, MEDICAID ==
--- NOTE | 2019-09-21 16:10 | RADIOLOGY REPORT (SQ) ---
EXAM DESCRIPTION: ARTERIAL LOWER EXTREM BILAT IMAGES COMPLETED DATE/TIME: 09/21/2019 2:26 pm REASON FOR STUDY: LLE ULCER, ATHEROSCLEROSIS I70.222 ATHSCL [place] ARTERIES OF EXTREMITIES W REST P AIN, L I70.245 ATHSCL [place] ARTERIES OF LEFT LEG W ULCERATION OTH COMPARISON: 02/02/2018 TECHNIQUE: Dynamic and static dumont scale and color images acquired of the lower extremity arteries. Additional selected spectral images recorded. ABIs recorded. LIMITATIONS: None. FINDINGS: RIGHT LEG: ABIS: Noncompressible vessels. INFLOW ARTERIES: Normal, no obstruction evident. FEMORAL ARTERIES:Multiphasic waveforms. Focal narrowing in the proximal right femoral artery. Veloci ties increased from 0.8 to 2.0 meters/sec. This corresponds to 50 to 75% narrowing. POPLITEAL ARTERY:Multiphasic waveforms. Focal narrowing in the distal popliteal artery with an approx imately 2 to 1 ratio consistent with 50% narrowing. PATENT TIBIOPERONEAL TRUNK AND 3 VESSEL RUNOFF: The tibioperoneal trunk is not demonstrated. Diffuse calcified plaque. Biphasic three-vessel runoff. TBI: Not performed. OTHER: No other significant finding. LEFT LEG: ABIS: Noncompressible vessels. INFLOW ARTERIES: Normal, no obstruction evident. FEMORAL ARTERIES:Multiphasic waveforms. There are diminished velocities in the distal femoral artery with collateral vessels. No high-grade stenosis is demonstrated. POPLITEAL ARTERY:Multiphasic waveforms. Normal, no velocity elevation to suggest focal stenosis. Norm al color Doppler evaluation. No aneurysm. PATENT TIBIOPERONEAL TRUNK AND 3 VESSEL RUNOFF: Monophasic runoff via the anterior tibial artery. Pe roneal artery is not visualized. The posterior tibial artery appears occluded. TBI: Not performed. OTHER: No other significant finding. IMPRESSION: Severe left-sided infrapopliteal disease. 50 to 75% narrowing in the proximal right femoral artery. 50% narrowing in the distal right popliteal artery. COMMENT: [facility] NORMAL: Greater than 1.0 MINIMAL DISEASE: 0.9 to 1.0 CLAUDICATION: 0.5 to 0.9 SEVERE ARTERIAL DISEASE: Less than 0.5 [facility] NORMAL: Greater than 1.0 (1.2 If Heavy Calcifications) NORMAL TO MILD ISCHEMIA: 0.8 to 1.0 MODERATE ISCHEMIA: 0.4 to 0.8 SEVERE ISCHEMIA: Less than 0.4 TECHNICAL DOCUMENTATION: JOB ID: [id number] 2010 [facility] [employer]- All Rights Reserved Reading location - IP/workstation name: [email or web address]
== END ==
LOC: SP 11:18
PROVIDERS: ATTEND Surgery Vascular Surgery
DX: I70.222 Atherosclerosis of native arteries of extremities with rest pain, left leg (principal); I70.245 Atherosclerosis of native arteries of left leg with ulceration of other part of foot
CPT/HCPCS: 93925

== ENCOUNTER 2019-11-12 12:25 | Emergency (ER) | payer MEDICARE, MEDICAID ==
--- NOTE | 2019-11-12 13:19 | ER Document Report ---
ED Medical Screen (RME) - General Chief Complaint: Vomiting Stated Complaint: VOMITING Time Seen by Provider: 11/12/19 13:07 Primary Care Provider: YENIFER PETERSON MD [Primary Care Provider] - Follow up as needed TRAVEL OUTSIDE OF THE [place] IN LAST 30 DAYS: No - HPI Notes: 11/12/19 13:19 59-year-old female with history of hypertension, diabetes, end-stage renal disease on dialysis every Tuesday, , Tuesday to the emergency department with complaints of 4 days of vomiting. She states she is vomiting 3- 4 times a day. Admits that she still feels nauseated. Does not admit to any abdominal pain. Denies any diarrhea. Denies any cough. Denies any fever. Denies any contact with anybody with COVID-19. I performed a brief medical screening exam on the patient determined that the patient needs further evaluation and management by main side provider. Denies upper respiratory symptoms, denies sore throat, headache, body aches. I have placed initial orders to help expedite care. - Related Data Allergies/Adverse Reactions: labetalol [Labetalol] Allergy (Severe, Verified 03/26/18 11:53) swelling, sob Penicillins Allergy (Severe, Verified 03/26/18 11:53) itching duloxetine Allergy (Verified 03/26/18 11:53) latex Allergy (Verified 03/26/18 11:53) linagliptin [From Tradjenta] Allergy (Verified 03/26/18 11:53) terbinafine Allergy (Verified 03/26/18 11:53) Liraglutide [From Victoza] Adverse Reaction (Verified 03/26/18 11:53) nausea/vomitting Past Medical History - Past Medical History Cardiac Medical History: Reports: Hx Congestive Heart Failure, Hx Coronary Artery Disease, Hx Heart Attack - 2008, Hx Hypercholesterolemia, Hx Hypertension Pulmonary Medical History: Reports: Hx Sleep Apnea - On CPap Denies: Hx Asthma, Hx Bronchitis, Hx COPD, Hx Pneumonia Neurological Medical History: Reports: Hx Cerebrovascular Accident. Denies: Hx Seizures Endocrine Medical History: Reports: Hx Diabetes Mellitus Type 1, Hx Diabetes Mellitus Type 2, Hx Hypothyroidism Renal/ Medical History: Reports: Hx End Stage Renal Disease. Denies: Hx Peritoneal Dialysis GI Medical History: Reports: Hx Gastroesophageal Reflux Disease Musculoskeltal Medical History: Reports Hx Arthritis, Reports Hx Gout, Reports Hx Systemic Lupus Erythematosus Psychiatric Medical History: Reports: Hx Depression Past Surgical History: Reports: Hx Appendectomy, Hx Section, Hx Cholecystectomy, Hx Hysterectomy, Hx Orthopedic Surgery - cancer removed from back, Other - parathyroidectomy, 3-1/2 glands removed on 01/13/2016; right adrenalectomy - Immunizations Hx Diphtheria, Pertussis, Tetanus Vaccination: Yes Doctor's Discharge - Discharge Referrals: YENIFER PETERSON MD [Primary Care Provider] - Follow up as needed
[2019-11-12 14:01] LABS: ABSOLUTE MONOCYTES (AUTO) 0.6 10^3/uL (0.1-1.4); ABSOLUTE NEUT (AUTO) 8.7 10^3/uL (1.7-8.2); BASOPHILS % (AUTO) 0.4 % (0-2); EOSINOPHILS % (AUTO) 0.1 % (0-6); HEMATOCRIT 40.9 % (36.0-47.0); HEMOGLOBIN 13.5 g/dL (12.0-15.5); LYMPHOCYTES % (AUTO) 17.8 % (13-45); MEAN CORPUSCULAR HEMOGLOBIN 28.3 pg (27.0-33.4); MEAN CORPUSCULAR VOLUME 86 fl (80-97); MONOCYTES % (AUTO) 5.1 % (3-13); PLATELET COUNT 361 10^3/uL (150-450); RED BLOOD COUNT 4.75 10^6/uL (3.72-5.28); RED CELL DISTRIBUTION WIDTH 16.4 % (11.5-14.0); SEGMENTED NEUTROPHILS % (AUTO) 76.6 % (42-78); TOTAL CELLS COUNTED % (AUTO) 100 %; WHITE BLOOD COUNT 11.4 10^3/uL (4.0-10.5)
[2019-11-12 14:33] LABS: ALBUMIN 4.1 g/dL (3.5-5.0); ALKALINE PHOSPHATASE 163 U/L (38-126); ANION GAP 17 (5-19); ASPARTATE AMINO TRANSFERASE 19 U/L (14-36); BILIRUBIN,DIRECT 0.5 mg/dL (0.0-0.4); BLOOD UREA NITROGEN 36 mg/dL (7-20); CALCIUM 9.8 mg/dL (8.4-10.2); CARBON DIOXIDE 26 mmol/L (22-30); CHLORIDE 95 mmol/L (98-107); GLUCOSE 277 mg/dL (75-110); TOTAL PROTEIN 7.9 g/dL (6.3-8.2)
[2019-11-12 17:14] VITALS: BP 94/48
--- NOTE | 2019-11-12 17:39 | ER Document Report ---
ED General - General Chief Complaint: Vomiting Stated Complaint: VOMITING Time Seen by Provider: 11/12/19 13:07 Primary Care Provider: YENIFER PETERSON MD [Primary Care Provider] - Follow up as needed TRAVEL OUTSIDE OF THE [place] IN LAST 30 DAYS: No - HPI Notes: 59-year-old female presents with vomiting. Patient states that she has been vomiting for the past 3 days, vomits 3-4 times per day. She states that this started on Tuesday after her dialysis session. Has had nausea. Had 2 days of liquidy stool, she states that resolved today, she had a solid stool today. She states that she has had this happen to her before, states it occurs "when they take too much fluid". States that she took a Zofran today which helped for her nausea, she states that now all of her symptoms have resolved, she has not had any vomiting while in the ED, she states she is actually hungry and wants to eat some crackers. She denies fever, chest pain, shortness of breath, abdominal pain. States she does plan to go to dialysis tomorrow. - Related Data Allergies/Adverse Reactions: labetalol [Labetalol] Allergy (Severe, Verified 11/12/19 18:19) swelling, sob Penicillins Allergy (Severe, Verified 11/12/19 18:19) itching duloxetine Allergy (Verified 11/12/19 18:19) latex Allergy (Verified 11/12/19 18:19) linagliptin [From Tradjenta] Allergy (Verified 11/12/19 18:19) terbinafine Allergy (Verified 11/12/19 18:19) Liraglutide [From Victoza] Adverse Reaction (Verified 11/12/19 18:19) nausea/vomitting Past Medical History - General Information source: Patient - Social History Smoking Status: Unknown if Ever Smoked Family History: Reviewed & Not Pertinent - Past Medical History Cardiac Medical History: Reports: Hx Congestive Heart Failure, Hx Coronary Artery Disease, Hx Heart Attack - 2007, Hx Hypercholesterolemia, Hx Hypertension Pulmonary Medical History: Reports: Hx Sleep Apnea - On CPap Denies: Hx Asthma, Hx Bronchitis, Hx COPD, Hx Pneumonia Neurological Medical History: Reports: Hx Cerebrovascular Accident. Denies: Hx Seizures Endocrine Medical History: Reports: Hx Diabetes Mellitus Type 1, Hx Diabetes Mellitus Type 2, Hx Hypothyroidism Renal/ Medical History: Reports: Hx End Stage Renal Disease. Denies: Hx Peritoneal Dialysis GI Medical History: Reports: Hx Gastroesophageal Reflux Disease Musculoskeletal Medical History: Reports Hx Arthritis, Reports Hx Gout, Reports Hx Systemic Lupus Erythematosus Psychiatric Medical History: Reports: Hx Depression Past Surgical History: Reports: Hx Appendectomy, Hx Section, Hx Cholecystectomy, Hx Hysterectomy, Hx Orthopedic Surgery - cancer removed from back, Other - parathyroidectomy, 3-1/2 glands removed on 01/13/2016; right adrenalectomy - Immunizations Hx Diphtheria, Pertussis, Tetanus Vaccination: Yes Hx Pneumococcal Vaccination: 02/18/15 Review of Systems - Review of Systems Constitutional: denies: Fever EENT: No symptoms reported Cardiovascular: denies: Chest pain Respiratory: denies: Cough, Short of breath Gastrointestinal: Nausea, Vomiting. denies: Abdominal pain Genitourinary: Other - Denies urine production Musculoskeletal: No symptoms reported Skin: No symptoms reported Neurological/Psychological: No symptoms reported Physical Exam - Vital signs Vitals: Temp Pulse Resp BP Pulse Ox 98.4 F 88 18 94/48 L 99 11/12/19 17:12 11/12/19 17:12 11/12/19 17:12 11/12/19 17:12 11/12/19 17:12 - General General appearance: Appears well, Alert In distress: None - HEENT Head: Normocephalic, Atraumatic Eyes: No: Scleral icterus Extraocular movements intact: Yes Pupils: PERRL - Respiratory Breath sounds: Normal. No: Rales - Cardiovascular Rhythm: Regular - Abdominal Inspection: Normal, Obese Bowel sounds: Normal Tenderness: Nontender - Extremities General lower extremity: No: Edema - Neurological Neuro grossly intact: Yes Cognition: Normal Orientation: AAOx4 - Psychological Associated symptoms: Normal affect - Skin Skin Temperature: Warm Course - Re-evaluation Re-evalutation: 59-year-old female with nausea/vomiting x3 days. On exam she is nontoxic- appearing, she has no abdominal tenderness, lungs are clear, she does not appear to be fluid overloaded. She is requesting to eat and drink at this time, she took a Zofran which she reports has now relieved her symptoms. Reviewed her chart, looks like in [address] scan done which showed possible early small bowel obstruction, although she has no tenderness and is having bowel movements, will obtain acute abdominal series to assess for abnormal gas pattern. Labs done through triage process. Denies nausea at this time, states she will let us know if nausea develops after eating, can try other oral medications. Reports that Reglan does not work for her. 11/12/19 18:30 Acute abdominal series reviewed. Per radiology there is a nonobstructive bowel gas pattern, no dilated loops or air-fluid level. No infiltrates in chest. Overall read as negative. 11/12/19 18:44 Labs reviewed. Minimal leukocytosis, likely reactionary, no associated left shift. No acute anemia. Potassium within normal limits. Creatinine elevated as expected. Hyperglycemia however bicarb within normal limits. Troponin has a small elevation, reviewed and at this value is within it previously recorded values. No major changes in EKG and denied cardiac symptoms. Informed by nursing that patient is requesting to leave at this time. 11/12/19 18:47 Into reassess patient. She reports resolution of her symptoms. She has tolerated p.o. She states she would like to go home at this time. I discussed work-up with her. She continues to deny chest pain or shortness of breath. Discussed with her that a repeat troponin should be obtained. She again states she would like to go home. I discussed with her strict return precautions, need to go to dialysis tomorrow, she verbalized understanding. Will prescribe Zofran. Stable at time of discharge. - Vital Signs Vital signs: Temp Pulse Resp BP Pulse Ox 98.4 F 88 18 94/48 L 99 11/12/19 17:12 11/12/19 17:12 11/12/19 17:12 11/12/19 17:12 11/12/19 17:12 - Laboratory Result Diagrams: 11/12/19 13:40 11/12/19 13:40 Laboratory results interpreted by me: 11/12/19 11/12/19 13:40 13:40 WBC 11.4 H RDW 16.4 H Absolute Neuts (auto) 8.7 H Chloride 95 L BUN 36 H Creatinine 7.70 H Est GFR ( Amer) 6 L Est GFR (MDRD) Non-Af 5 L Glucose 277 H Direct Bilirubin 0.5 H Alkaline Phosphatase 163 H - Diagnostic Test Radiology reviewed: Image reviewed, Reports reviewed - EKG Interpretation by Me Additional EKG results interpreted by me: EKG as interpreted by me. Sinus rhythm, rate 90. Narrow QRS. Prolonged QTC, similar to previous. There is T wave inversion in 1 and aVL which is seen on EKG dated March 27, 2018. EKG overall unchanged from previous Discharge - Discharge Clinical Impression: Nausea and vomiting in adult, ESRD (end stage renal disease) on dialysis, Elevated troponin I measurement Hyperglycemia due to type 2 diabetes mellitus Qualifiers: Diabetes mellitus assisted insulin use: unspecified assisted insulin use status Qualified Code(s): E11.65 - Type 2 diabetes mellitus with hyperglycemia Condition: Stable Disposition: HOME, SELF-CARE Additional Instructions: Use Zofran as needed for nausea/vomiting. Please return to the emergency department for fever, abdominal pain, chest pain, worsening of symptoms or any new or concerning symptoms. Please go to dialysis tomorrow as planned. Please have close follow-up with your primary care doctor. Prescriptions: Ondansetron [Zofran Odt 4 mg Tablet] 1 tab PO Q4H PRN #15 tab.rapdis PRN Reason: For Nausea/Vomiting Referrals: YENIFER PETERSON MD [Primary Care Provider] - Follow up as needed
--- NOTE | 2019-11-12 17:53 | EKG REPORT ---
SEVERITY:- ABNORMAL ECG - SINUS RHYTHM BORDERLINE LEFT AXIS DEVIATION NONSPECIFIC T ABNORMALITIES, LATERAL LEADS PROLONGED QT INTERVAL : Confirmed by: Ulysses Walden MD 12-Nov-2019 17:52:48
--- NOTE | 2019-11-12 18:25 | RADIOLOGY REPORT (SQ) ---
EXAM DESCRIPTION: ACUTE ABDOMEN SERIES IMAGES COMPLETED DATE/TIME: 11/12/2019 6:12 pm REASON FOR STUDY: nausea/vom, eval abdnormal gas pattern COMPARISON: 02/02/2018 NUMBER OF VIEWS: Three views. TECHNIQUE: Frontal chest, supine abdomen and upright/decubitus abdomen radiographic images acquired. LIMITATIONS: None. FINDINGS: CHEST: Lungs clear of infiltrates. FREE AIR: None. No abnormal gas collections. BOWEL GAS PATTERN: Nonobstructive pattern. No dilated loops or air fluid levels. CALCIFICATIONS: No suspicious calcifications. HARDWARE: None in the abdomen. SOFT TISSUES: No gross mass or suggestion of organomegaly. BONES: No acute fracture. No worrisome bone lesions. OTHER: No other significant finding. IMPRESSION: NO RADIOGRAPHIC EVIDENCE FOR ACUTE ABDOMINAL DISEASE. TECHNICAL DOCUMENTATION: JOB ID: [id number] 2010 [employer]- All Rights Reserved Reading location - IP/workstation name: [email or web address]
--- NOTE | 2019-11-13 19:01 | EKG REPORT ---
SEVERITY:- BORDERLINE ECG - SINUS RHYTHM BORDERLINE T ABNORMALITIES, INFERIOR LEADS : Confirmed by: Ulysses Walden MD 13-Nov-2019 19:00:17
== END 2019-11-12 19:32 | disposition home or self-care (01) ==
LOC: ER 12:25
DX: R11.2 Nausea with vomiting, unspecified (principal); R79.89 Other specified abnormal findings of blood chemistry; E11.22 Type 2 diabetes mellitus with diabetic chronic kidney disease; I13.2 Hypertensive heart and chronic kidney disease with heart failure and with stage 5 chronic kidney disease, or end stage renal disease; I50.9 Heart failure, unspecified; N18.6 End stage renal disease; E11.65 Type 2 diabetes mellitus with hyperglycemia; Z99.2 Dependence on renal dialysis
CPT/HCPCS: 36415; 74022; 80053; 83690; 84484; 85025; 93005; 93010; 99285

== ENCOUNTER 2019-12-17 15:37 | Inpatient (IN) | payer MEDICARE, MEDICAID ==
--- NOTE | 2019-12-17 15:51 | ER Document Report ---
ED Medical Screen (RME) - General Chief Complaint: Wound Infection Stated Complaint: FOOT PAIN, WOUND CHECK Time Seen by Provider: 12/17/19 15:45 Primary Care Provider: YENIFER PETERSON MD [Primary Care Provider] - Follow up as needed Mode of Arrival: Wheelchair Information source: Patient Notes: 59-year-old female presented to ED after being sent from the wound clinic for evaluation for possible surgery to the left foot. She has infected wounds to the foot. She is a 2 diabetic and has diabetic wounds. We will get blood wound cultures foot x-ray and Accu-Chek. She will be seen by another provider to determine whether she needs surgical evaluation. She states she has been on dialysis for renal failure for 3 years. I have greeted and performed a rapid initial assessment of this patient. A comprehensive ED assessment and evaluation of the patient, analysis of test results and completion of medical decision making process will be conducted by an additional ED providers. TRAVEL OUTSIDE OF THE [place] IN LAST 30 DAYS: No - HPI Onset: Other - Tonic Onset/Duration: Gradual Quality of pain: Achy, Throbbing Severity: Moderate Pain Level: 4 Associated Symptoms: Other - Diabetic wound to foot and toes Exacerbated by: Movement, Walking Relieved by: Denies Similar symptoms previously: Yes Recently seen / treated by doctor: Yes - Related Data Smoking: Non-smoker Frequency of alcohol use: None Drug Abuse: None Allergies/Adverse Reactions: labetalol [Labetalol] Allergy (Severe, Verified 12/17/19 15:47) swelling, sob Penicillins Allergy (Severe, Verified 12/17/19 15:47) itching duloxetine Allergy (Verified 12/17/19 15:47) latex Allergy (Verified 12/17/19 15:47) linagliptin [From Tradjenta] Allergy (Verified 12/17/19 15:47) terbinafine Allergy (Verified 12/17/19 15:47) Liraglutide [From Victoza] Adverse Reaction (Verified 12/17/19 15:47) nausea/vomitting Past Medical History - General Information source: Patient - Social History Cigarette use (# per day): No Frequency of alcohol use: None Drug Abuse: None Lives with: Family Family history: Reviewed & Not Pertinent - Past Medical History Cardiac Medical History: Reports: Hx Congestive Heart Failure, Hx Coronary Artery Disease, Hx Heart Attack - 2007, Hx Hypercholesterolemia, Hx Hypertension Pulmonary Medical History: Reports: Hx Sleep Apnea - On CPap Neurological Medical History: Reports: Hx Cerebrovascular Accident Endocrine Medical History: Reports: Hx Diabetes Mellitus Type 2, Hx Hypothyroidism Renal/ Medical History: Reports: Hx End Stage Renal Disease GI Medical History: Reports: Hx Gastroesophageal Reflux Disease Musculoskeltal Medical History: Reports Hx Arthritis, Reports Hx Gout, Reports Hx Systemic Lupus Erythematosus Psychiatric Medical History: Reports: Hx Depression Past Surgical History: Reports: Hx Appendectomy, Hx Section, Hx Cholecystectomy, Hx Hysterectomy, Hx Orthopedic Surgery - cancer removed from back, Other - parathyroidectomy, 3-1/2 glands removed on 01/13/2016; right adrenalectomy - Immunizations Hx Diphtheria, Pertussis, Tetanus Vaccination: Yes Physical Exam - Vital signs Vitals: Temp Resp BP 98.2 F 18 178/76 H 12/17/19 15:48 12/17/19 15:48 12/17/19 15:48 Course - Vital Signs Vital signs: Temp Pulse Resp BP Pulse Ox 98.2 F 18 178/76 H 12/17/19 15:48 12/17/19 15:48 12/17/19 15:48 Doctor's Discharge - Discharge Referrals: YENIFER PETERSON MD [Primary Care Provider] - Follow up as needed
--- NOTE | 2019-12-17 16:22 | RADIOLOGY REPORT (SQ) ---
EXAM DESCRIPTION: FOOT LEFT COMPLETE IMAGES COMPLETED DATE/TIME: 12/17/2019 4:09 pm REASON FOR STUDY: Conrado ulcers left foot toes COMPARISON: None. NUMBER OF VIEWS: Three views. TECHNIQUE: AP, lateral and oblique radiographic images acquired of the left foot. LIMITATIONS: None. FINDINGS: MINERALIZATION: Decreased. BONES: No acute fractures. Significantly reduced mineralization and cortical indistinctness most con spicuous about the distal 3rd through 5th phalanges. Indistinct cortical tuft at the 1st and 2nd dig its. JOINTS: No effusions. SOFT TISSUES: Soft tissue swelling about the forefoot with soft tissue loss at the distal 1st digit. Likely subcutaneous gas at the 1st and 2nd distal digits. Vascular calcifications. OTHER: No other significant finding. IMPRESSION: 1. Decreased mineralization and indistinct cortex involving the 3rd through 5th phalang es suggestive of osteomyelitis. Additional indistinct julio c at the distal 1st and 2nd digits also mo derately suspicious for osteomyelitis. MRI could be considered for further characterization. 2. No fracture. TECHNICAL DOCUMENTATION: JOB ID: [id number] 2010 [employer]- All Rights Reserved Reading location - IP/workstation name: [email or web address]
[2019-12-17 17:01] LABS: ABSOLUTE BASOPHILS # (AUTO) 0.1 10^3/uL (0.0-0.2); ABSOLUTE EOSINOPHILS # (AUTO) 0.8 10^3/uL (0.0-0.6); ABSOLUTE LYMPHOCYTES (AUTO) 3.7 10^3/uL (0.5-4.7); ABSOLUTE MONOCYTES (AUTO) 0.8 10^3/uL (0.1-1.4); ABSOLUTE NEUT (AUTO) 5.9 10^3/uL (1.7-8.2); BASOPHILS % (AUTO) 1.2 % (0-2); EOSINOPHILS % (AUTO) 7.3 % (0-6); HEMATOCRIT 36.1 % (36.0-47.0); HEMOGLOBIN 11.8 g/dL (12.0-15.5); LYMPHOCYTES % (AUTO) 32.3 % (13-45); MEAN CORPUSCULAR HEMOGLOBIN 28.2 pg (27.0-33.4); MEAN CORPUSCULAR HGB CONC 32.7 g/dL (32.0-36.0); MEAN CORPUSCULAR VOLUME 86 fl (80-97); MONOCYTES % (AUTO) 7.4 % (3-13); PLATELET COUNT 338 10^3/uL (150-450); RED BLOOD COUNT 4.19 10^6/uL (3.72-5.28); RED CELL DISTRIBUTION WIDTH 14.7 % (11.5-14.0); SEGMENTED NEUTROPHILS % (AUTO) 51.8 % (42-78); TOTAL CELLS COUNTED % (AUTO) 100 %; WHITE BLOOD COUNT 11.3 10^3/uL (4.0-10.5)
[2019-12-17 17:21] LABS: ALBUMIN 4.3 g/dL (3.5-5.0); ALKALINE PHOSPHATASE 139 U/L (38-126); ANION GAP 15 (5-19); ASPARTATE AMINO TRANSFERASE 21 U/L (14-36); BILIRUBIN,DIRECT 0.4 mg/dL (0.0-0.4); BILIRUBIN,TOTAL 0.5 mg/dL (0.2-1.3); BLOOD UREA NITROGEN 30 mg/dL (7-20); CARBON DIOXIDE 30 mmol/L (22-30); CHLORIDE 95 mmol/L (98-107); GLUCOSE 133 mg/dL (75-110); POTASSIUM 3.7 mmol/L (3.6-5.0); TOTAL PROTEIN 8.3 g/dL (6.3-8.2)
--- NOTE | 2019-12-17 17:38 | ER Document Report ---
ED General - General Chief Complaint: Wound Infection Stated Complaint: FOOT PAIN, WOUND CHECK Time Seen by Provider: 12/17/19 15:45 Mode of Arrival: Wheelchair Notes: 59-year-old female patient with history of diabetes mellitus, end-stage renal disease on dialysis, hypertension and with gastroparesis presenting to the emergency department with request for evaluation of foot wound. Patient has been seeing the wound care clinic, they have sent her here today with concerns that she may need surgical intervention. She reports she has had wounds to the left foot specifically on the first second and fifth digits for several months. She reports overall she feels well, denies any fever, chills, nausea or vomiting. She states her diabetes is not under control. TRAVEL OUTSIDE OF THE [place] IN LAST 30 DAYS: No - Related Data Allergies/Adverse Reactions: labetalol [Labetalol] Allergy (Severe, Verified 12/17/19 15:47) swelling, sob Penicillins Allergy (Severe, Verified 12/17/19 15:47) itching duloxetine Allergy (Verified 12/17/19 15:47) latex Allergy (Verified 12/17/19 15:47) linagliptin [From Tradjenta] Allergy (Verified 12/17/19 15:47) terbinafine Allergy (Verified 12/17/19 15:47) Liraglutide [From Victoza] Adverse Reaction (Verified 12/17/19 15:47) nausea/vomitting Past Medical History - General Information source: Patient - Social History Smoking Status: Never Smoker Cigarette use (# per day): No Chew tobacco use (# tins/day): No Frequency of alcohol use: None Drug Abuse: None Lives with: Family Family History: Reviewed & Not Pertinent - Past Medical History Cardiac Medical History: Reports: Hx Congestive Heart Failure, Hx Coronary Artery Disease, Hx Heart Attack - 2007, Hx Hypercholesterolemia, Hx Hypertension Pulmonary Medical History: Reports: Hx Sleep Apnea - On CPap Neurological Medical History: Reports: Hx Cerebrovascular Accident Endocrine Medical History: Reports: Hx Diabetes Mellitus Type 2, Hx Hypothyroidism Renal/ Medical History: Reports: Hx End Stage Renal Disease GI Medical History: Reports: Hx Gastroesophageal Reflux Disease Musculoskeletal Medical History: Reports Hx Arthritis, Reports Hx Gout, Reports Hx Systemic Lupus Erythematosus Psychiatric Medical History: Reports: Hx Depression Past Surgical History: Reports: Hx Appendectomy, Hx Section, Hx Cholecystectomy, Hx Hysterectomy, Hx Orthopedic Surgery - cancer removed from back, Other - parathyroidectomy, 3-1/2 glands removed on 01/13/2016; right adrenalectomy - Immunizations Hx Diphtheria, Pertussis, Tetanus Vaccination: Yes Hx Pneumococcal Vaccination: 02/18/15 Review of Systems - Review of Systems Musculoskeletal: See HPI Skin: See HPI -: Yes All other systems reviewed and negative Physical Exam - Vital signs Vitals: Temp Resp BP 98.2 F 18 178/76 H 12/17/19 15:48 12/17/19 15:48 12/17/19 15:48 - Notes Notes: PHYSICAL EXAMINATION: GENERAL: Well-appearing, well-nourished and in no acute distress. HEAD: Atraumatic, normocephalic. EYES: Pupils equal round and reactive to light, extraocular movements intact, conjunctiva are normal. ENT: Nares patent, oropharynx clear without exudates. Moist mucous membranes. NECK: Normal range of motion, supple without lymphadenopathy LUNGS: Breath sounds clear to auscultation bilaterally and equal. No wheezes rales or rhonchi. HEART: Regular rate and rhythm without murmurs ABDOMEN: Soft, nontender, nondistended abdomen. No guarding, no rebound. No masses appreciated. Female : deferred Musculoskeletal: Normal range of motion, no pitting or edema. No cyanosis. NEUROLOGICAL: Cranial nerves grossly intact. Normal speech, normal gait. Normal sensory, motor exams PSYCH: Normal mood, normal affect. SKIN: Ulcerations noted to left first, second and fifth toes. Course - Vital Signs Vital signs: Temp Pulse Resp BP Pulse Ox 98.3 F 93 18 125/89 H 97 12/18/19 04:51 12/18/19 04:51 12/18/19 04:51 12/18/19 04:51 12/18/19 04:51 - Laboratory Result Diagrams: 12/17/19 16:36 12/17/19 16:36 Laboratory results interpreted by me: 12/17/19 12/17/19 16:36 16:36 WBC 11.3 H Hgb 11.8 L RDW 14.7 H Eos % (Auto) 7.3 H Absolute Eos (auto) 0.8 H Chloride 95 L BUN 30 H Creatinine 8.19 H Est GFR ( Amer) 6 L Est GFR (MDRD) Non-Af 5 L Glucose 133 H Alkaline Phosphatase 139 H Total Protein 8.3 H Discharge - Discharge Clinical Impression: Diabetic foot infection, Osteomyelitis Condition: Stable Disposition: ADMITTED INPATIENT Admitting Provider: Yelitza (Hospitalist) Unit Admitted: Medical Floor
[2019-12-17] MEDS ORDERED: OXYCODONE HCL IR 5 MG TABLET PO ONE (17:39)
[2019-12-17] MEDS ORDERED: CIPROFLOXACIN 400 MG/D5W RTU 400 MG/200 ML RTUPB IV ONE (18:30)
[2019-12-17] MEDS ORDERED: VANCOMYCIN HCL 0 MG in DEXTROSE 5%-WATER 250 ML IV NR (18:30)
[2019-12-17] MEDS ORDERED: VANCOMYCIN HCL 1,500 MG in DEXTROSE 5%-WATER 250 ML IV ONE (20:00)
[2019-12-17] MEDS ORDERED: MAGNESIUM HYDROXIDE SUSP 30 ML UDCUP PO PRN (20:43)
[2019-12-17] MEDS ORDERED: MAG HYDROX/AL HYDROX/SIMETH SUSP 30 ML UDCUP PO PRN (20:43)
[2019-12-17] MEDS ORDERED: ACETAMINOPHEN 325 MG TABLET PO PRN (20:48)
[2019-12-17] MEDS ORDERED: METOPROLOL TARTRATE PF/INJ 5 MG/5 ML SDV IV PRN (20:48)
[2019-12-17] MEDS ORDERED: LORAZEPAM INJ 2 MG/1 ML VIAL IV PRN (20:48)
[2019-12-17] MEDS ORDERED: INSULIN REG, HUMAN 100 UNIT/ML 3 ML VIAL (PYX) SUBCUT PRN (20:48)
[2019-12-17] MEDS ORDERED: GUAIFENESIN SYRP 200 MG/10 ML UDC PO PRN (20:48)
[2019-12-17] MEDS ORDERED: MORPHINE SULFATE 10 MG/ML INJ IV PRN (20:48)
[2019-12-17] MEDS ORDERED: MELATONIN 5 MG TABLET PO PRN (20:48)
[2019-12-17] MEDS ORDERED: HYDRALAZINE HCL INJ/PF 20 MG/1 ML SDV IV PRN (20:48)
[2019-12-17] MEDS ORDERED: GLUCAGON,HUMAN RECOMB 1 MG INJ IM PRN (20:49)
[2019-12-17] MEDS ORDERED: DEXTROSE 40% GEL 15 GM TUBE PO PRN ×2 (20:49)
[2019-12-17] MEDS ORDERED: DEXTROSE 50%-WATER 25 GM/50 ML DISP.SYRIN IV PRN ×2 (20:49)
[2019-12-17] MEDS ORDERED: VANCOMYCIN HCL INJ 1000 MG VIAL IV SCH (21:00)
[2019-12-18] MEDS: METOCLOPRAMIDE HCL 10 MG TABLET PO SCH ×5 (00:21→22:16)
[2019-12-18] MEDS: HEPARIN SOD (PORCINE) 5,000 UNIT/ML 1 ML VIAL SUBCUT SCH ×4 (00:21→22:16)
[2019-12-18] MEDS: SUCRALFATE 1 GM TABLET PO SCH ×5 (00:22→22:16)
--- NOTE | 2019-12-18 03:32 | PDOC H&P ---
History of Present Illness Admission Date/PCP: 12/17/2019 20:05 YENIFER SILVACAN Patient complains of: Left foot problem History of Present Illness: MARIOLA GAR is a 59 year old female who presented to the emergency room at the instruction of the wound care clinic due to worsening of her chronic diabetic left foot issues. She denies any current complaints but states the wound care clinic provider instructed her to come to the hospital because she may need to have her toes amputated. She admits chronic left foot diabetic wounds that have not been healing involving her first second and fifth toes. She admits that her diabetes has never been well controlled. She admits that sh e is on Tuesday and Tuesday dialysis for end-stage renal disease. In the emergency room she was found to have radiographic evidence of osteomyelitis involving all of the toes of the left foot. Dr. Calvin Barraza was consulted by the emergency room provider and the patient was subsequently admitted to the hospitalist service with consultation to the surgical team. Past Medical History Cardiac Medical History: Reports: Congestive Heart Failure, Coronary Artery Disease, Myocardial Infarction - 2007, Hyperlipidema, Hypertension, Peripheral Vascular Disease Denies: Atrial Fibrillation Pulmonary Medical History: Reports: Sleep Apnea - On CPap Denies: Asthma, Chronic Obstructive Pulmonary Disease (COPD) EENT Medical History: Denies: Cataracts, Ears - Hearing aids Neurological Medical History: Reports: Other - Diabetic peripheral neuropathy Denies: Hemorrhagic CVA, Ischemic CVA, Seizures Endocrine Medical History: Reports: Diabetes Mellitus Type 2, Hypothyroidism, Obesity Denies: Diabetes Mellitus Type 1, Hyperthyroidism Renal/ Medical History: Reports: End Stage Renal Disease, Other - Pheochromocytoma Denies: Nephrolithiasis Malignancy Medical History: Reports: Skin Cancer GI Medical History: Reports: Gastroesophageal Reflux Disease Denies: Cirrhosis, Hepatitis, Peptic Ulcer Disease Musculoskeltal Medical History: Reports: Arthritis, Gout, Other - Systemic lupus erythematosus, chronic pain syndrome Skin Medical History: Denies: Eczema, Psoriasis Psychiatric Medical History: Reports: Depression Denies: Alcohol Dependency, Substance Abuse, Tobacco Dependency Traumatic Medical History: Reports: None Hematology: Reports: Anemia - Chronic anemia of ESRD Denies: Bleeding Tendencies Infectious Medical History: Reports: None Past Surgical History Past Surgical History: Additional surgeries include a laparoscopic laparotomy with lysis of adhesions and excision of a skin cancer from her back Past Surgical History: Reports: Appendectomy, Section, Cholecystectomy, Herniorrhaphy, Hysterectomy, Other - parathyroidectomy, 3-1/2 glands removed on 01/13/2016; right adrenalectomy Social History Information Source: Patient Lives with: Family Smoking Status: Never Smoker Electronic Cigarette use?: No Frequency of Alcohol Use: None Hx Recreational Drug Use: No Drugs: None Hx Prescription Drug Abuse: No - Advance Directive Resuscitation Status: Full Code Surrogate healthcare decision maker:: Dariel Sherwin Family History Family History: Malignancy - Father, Other - Kidney disease: Mother Parental Family History Reviewed: Yes Children Family History Reviewed: No Sibling(s) Family History Reviewed.: No Medication/Allergy Home Medications: Atorvastatin Calcium [Lipitor 20 mg Tablet] 20 mg PO QHS 12/17/19 Clopidogrel Bisulfate [Plavix 75 mg Tablet] 75 mg PO DAILY 12/17/19 Ergocalciferol (Vitamin D2) [Drisdol 50,000 unit (1.25MG) Capsule] 50,000 unit PO AQUINO@1000 12/17/19 Gabapentin [Neurontin 400 mg Capsule] 400 mg PO TID 12/17/19 Hydroxyzine Pamoate [Vistaril 25 mg Capsule] 50 mg PO .BEFORE DIALYSIS 12/17/19 Insulin Lispro [Humalog Kwikpen U-100] 10 unit SQ MEALS 12/17/19 Melatonin [Melatonin 5 mg Tablet] 10 mg PO QHS 12/17/19 Omeprazole 20 mg PO DAILY 12/17/19 Ondansetron [Zofran Odt 4 mg Tablet] 4 mg PO BIDP PRN 12/17/19 Quetiapine Fumarate [Seroquel] 50 mg PO QHS 12/17/19 Allergies/Adverse Reactions: labetalol [Labetalol] Allergy (Severe, Verified 12/17/19 15:47) swelling, sob Penicillins Allergy (Severe, Verified 12/17/19 15:47) itching duloxetine Allergy (Verified 12/17/19 15:47) latex Allergy (Verified 12/17/19 15:47) linagliptin [From Tradjenta] Allergy (Verified 12/17/19 15:47) terbinafine Allergy (Verified 12/17/19 15:47) Liraglutide [From Victoza] Adverse Reaction (Verified 12/17/19 15:47) nausea/vomitting Review of Systems Constitutional: ABSENT: chills, fever(s) Eyes: ABSENT: visual disturbances, other - Eye pain Ears: ABSENT: hearing changes, other - Ear pain Nose, Mouth, and Throat: ABSENT: headache(s), sore throat Cardiovascular: ABSENT: chest pain, palpitations Respiratory: ABSENT: cough, dyspnea Gastrointestinal: ABSENT: abdominal pain, constipation, diarrhea, nausea, vomiting Genitourinary: ABSENT: dysuria, hematuria Musculoskeletal: ABSENT: joint swelling, muscle weakness Integumentary: PRESENT: as per HPI, wounds - Left foot first, second and fifth digits. ABSENT: pruritus, rash Neurological: ABSENT: confusion, convulsions, focal weakness, memory loss, syncope Psychiatric: ABSENT: anxiety, depression Endocrine: ABSENT: cold intolerance, heat intolerance Hematologic/Lymphatic: ABSENT: easy bleeding, easy bruising Allergic/Immunologic: ABSENT: seasonal rhinorrhea Physical Exam Vital Signs: Temp Pulse Resp BP Pulse Ox 98.2 F 18 178/76 H 12/17/19 15:48 12/17/19 15:48 12/17/19 15:48 Intake & Output 12/16/19 12/16/19 12/17/19 00:59 23:59 23:59 Weight 92.4 kg General appearance: PRESENT: no acute distress, cooperative, obese Head exam: PRESENT: atraumatic, normocephalic Eye exam: PRESENT: conjunctiva pink. ABSENT: conjunctival injection, scleral icterus Ear exam: PRESENT: normal external ear exam. ABSENT: bleeding, drainage Mouth exam: PRESENT: dry mucosa, neck supple Neck exam: ABSENT: thyromegaly, tracheal deviation Respiratory exam: PRESENT: clear to auscultation [facility], symmetrical, unlabored Cardiovascular exam: PRESENT: RRR. ABSENT: clicks, gallop, rubs Pulses: PRESENT: normal radial pulses, normal dorsalis pedis pul Vascular exam: PRESENT: normal capillary refill. ABSENT: pallor GI/Abdominal exam: PRESENT: normal bowel sounds, soft. ABSENT: tenderness Rectal exam: PRESENT: deferred Extremities exam: PRESENT: pedal edema - Mild bilateral pedal edema. ABSENT: joint swelling Musculoskeletal exam: ABSENT: deformity, dislocation Neurological exam: PRESENT: alert, oriented to person, oriented to place, oriented to time, oriented to situation, CN II-XII grossly intact, motor sensory deficit - Decreased light touch sensation bilateral lower legs Psychiatric exam: PRESENT: appropriate affect, normal mood Skin exam: PRESENT: dry, intact, warm, other - There is a surgical dressing covering the left foot and toes which is not removed at the time of my evaluation.. ABSENT: jaundice, rash, urticaria Results Laboratory Results: 12/17/19 16:36 12/17/19 16:36 12/17/19 12/17/19 16:36 16:36 WBC 11.3 H RBC 4.19 Hgb 11.8 L Hct 36.1 MCV 86 MCH 28.2 MCHC 32.7 RDW 14.7 H Plt Count 338 Seg Neutrophils % 51.8 Sodium 140.3 Potassium 3.7 Chloride 95 L Carbon Dioxide 30 Anion Gap 15 BUN 30 H Creatinine 8.19 H Est GFR ( Amer) 6 L Glucose 133 H Calcium 10.0 Total Bilirubin 0.5 AST 21 Alkaline Phosphatase 139 H Total Protein 8.3 H Albumin 4.3 Impressions: Foot X-Ray 12/17/19 15:46 IMPRESSION: 1. Decreased mineralization and indistinct cortex involving the 3rd through 5th phalanges suggestive of osteomyelitis. Additional indistinct julio c at the distal 1st and 2nd digits also moderately suspicious for osteomyelitis. MRI could be considered for further characterization. 2. No fracture. Assessment and Plan - Diagnosis (1) Osteomyelitis of toe of left foot Is this a current diagnosis for this admission?: Yes (2) Diabetic peripheral vascular disease Is this a current diagnosis for this admission?: Yes (3) Diabetic peripheral neuropathy associated with type 2 diabetes mellitus Is this a current diagnosis for this admission?: Yes (4) Diabetes mellitus type 2 in obese Is this a current diagnosis for this admission?: Yes (5) End stage renal disease on dialysis Is this a current diagnosis for this admission?: Yes (6) Anemia in chronic kidney disease Qualifiers: Chronic kidney disease stage: on chronic dialysis Qualified Code(s): N18.6 - End stage renal disease; D63.1 - Anemia in chronic kidney disease; Z99.2 - Dependence on renal dialysis Is this a current diagnosis for this admission?: Yes (7) Hypertension Qualifiers: Hypertension type: secondary to endocrine disorders Qualified Code(s): I15.2 - Hypertension secondary to endocrine disorders Is this a current diagnosis for this admission?: Yes (8) Diabetic gastroparesis Is this a current diagnosis for this admission?: Yes (9) Sleep apnea Qualifiers: Sleep apnea type: obstructive Qualified Code(s): G47.33 - Obstructive sleep apnea (adult) (pediatric) Is this a current diagnosis for this admission?: Yes (10) Obesity Qualifiers: Obesity type: due to excess calories Obesity classification: adult class 2 (BMI 35 - 39.9) Serious obesity comorbidity presence: with serious comorbidity Body mass index: BMI 36.0-36.9 Qualified Code(s): E66.01 - Morbid (severe) obesity due to excess calories; Z68.36 - Body mass index [BMI] 36.0-36.9, adult Is this a current diagnosis for this admission?: Yes - Plan Summary Summary: Patient will be admitted to the medical floor where she will receive routine supportive and symptomatic cares. She will receive IV antibiotics utilizing vancomycin and Cipro at the recommendation of the pharmacy pending blood culture results. Surgical consultation with Dr. Calvin Barraza has been obtained by the emergency room provider. Nephrology consultation with Dr. Shelley Zaidi will be obtained for ongoing dialysis needs. Patient will receive Ativan 1 mg IV every 4 hours as needed for anxiety or restlessness. She will receive morphine sulfate 2 to 4 mg IV every 2 hours as needed for pain. Before meals and at bedtime Accu-Cheks will be obtained with sliding scale insulin for hyperglycemia and a hypoglycemic protocol in place. Patient will receive a cardiac, diabetic and dialysis restricted diet. Additional laboratory and/or radiographic evaluations will be obtained as needed. - Time Time Spent with patient: 15-24 minutes Smoking Cessation Education: 3 to 10 minutes Medications reviewed and adjusted accordingly: Yes Anticipated Discharge Disposition: [facility] Facility Anticipated Discharge Timeframe: Undetermined - Inpatient Certification Based on my medical assessment, after consideration of the patient's com orbidities, presenting symptoms, or acuity I expect that the services needed warrant INPATIENT care.: Yes I certify that my determination is in accordance with my understanding of Medicare's requirements for reasonable and necessary INPATIENT services [42 CFR 412.3e].: Yes Medical Necessity: Failure to Improve With Outpatient Therapy, Significant Comorbidiites Make Outpatient Treatment Too Risky, Need Close Monitoring Due to Risk of Patient Decompensation, Need for IV Antibiotics, Need for Surgery, Risk of Complication if Not Cared For in Hospital
[2019-12-18] MEDS: PANTOPRAZOLE SODIUM 40 MG TABLET.DR PO SCH (05:46)
--- NOTE | 2019-12-18 06:55 | PDOC CONSULTATION ---
Consultation Consult Date: 12/18/19 Provider Consulted: SURGICAL SURGICALIST MD Consult reason:: diabetic foot. Osteomyelitis History of Present Illness Admission Date/PCP: 12/17/19 20:21 YENIFER PETERSON Patient complains of: foot pain History of Present Illness: MARIOLA GAR is a 59 year old female seen in consultation at the request of the hospitalist. The pt is a poorly controlled diabetic with a long h/o left foot ulcers. She has seen the wound care clinic in the past. The pt has worsening of her toe ulcerations, and now has exposed bone on multiple toes of the left foot. She denies weakness, CP, SOB, BOOGIE, Nausea, Vomiting, abdominal pain, dizziness, orthostasis, fevers or chills. She does report pain in the left foot. Past Medical History Cardiac Medical History: Reports: Congestive Heart Failure, Coronary Artery Disease, Myocardial Infarction - 2007, Hyperlipidema, Hypertension, Peripheral Vascular Disease Denies: Atrial Fibrillation Pulmonary Medical History: Reports: Sleep Apnea - On CPap Denies: Asthma, Chronic Obstructive Pulmonary Disease (COPD) EENT Medical History: Denies: Cataracts, Ears - Hearing aids Neurological Medical History: Reports: Other - Diabetic peripheral neuropathy Denies: Hemorrhagic CVA, Ischemic CVA, Seizures Endocrine Medical History: Reports: Diabetes Mellitus Type 2, Hypothyroidism, Obesity Denies: Diabetes Mellitus Type 1, Hyperthyroidism Renal/ Medical History: Reports: End Stage Renal Disease, Other - Pheochromocytoma Denies: Nephrolithiasis Malignancy Medical History: Reports: Skin Cancer GI Medical History: Reports: Gastroesophageal Reflux Disease Denies: Cirrhosis, Hepatitis, Peptic Ulcer Disease Musculoskeltal Medical History: Reports: Arthritis, Gout, Other - Systemic lupus erythematosus, chronic pain syndrome Skin Medical History: Denies: Eczema, Psoriasis Psychiatric Medical History: Reports: Depression Denies: Alcohol Dependency, Substance Abuse, Tobacco Dependency Traumatic Medical History: Reports: None Hematology: Reports: Anemia - Chronic anemia of ESRD Denies: Bleeding Tendencies Infectious Medical History: Reports: None Past Surgical History Past Surgical History: Reports: Appendectomy, Section, Cholecystectomy, Herniorrhaphy, Hysterectomy, Orthopedic Surgery - cancer removed from back, Other - parathyroidectomy, 3-1/2 glands removed on 01/13/2016; right adrenalectomy Social History Lives with: Family Smoking Status: Never Smoker Electronic Cigarette use?: No Frequency of Alcohol Use: None Hx Recreational Drug Use: No Drugs: None Hx Prescription Drug Abuse: No - Advance Directive Resuscitation Status: Full Code Family History Family History: Reviewed & Not Pertinent Parental Family History Reviewed: Yes Children Family History Reviewed: Yes Sibling(s) Family History Reviewed.: Yes Medication/Allergy Home Medications: Atorvastatin Calcium [Lipitor 20 mg Tablet] 20 mg PO QHS 12/17/19 Clopidogrel Bisulfate [Plavix 75 mg Tablet] 75 mg PO DAILY 12/17/19 Ergocalciferol (Vitamin D2) [Drisdol 50,000 unit (1.25MG) Capsule] 50,000 unit PO AQUINO@1000 12/17/19 Gabapentin [Neurontin 400 mg Capsule] 400 mg PO TID 12/17/19 Hydroxyzine Pamoate [Vistaril 25 mg Capsule] 50 mg PO .BEFORE DIALYSIS 12/17/19 Insulin Lispro [Humalog Kwikpen U-100] 10 unit SQ MEALS 12/17/19 Melatonin [Melatonin 5 mg Tablet] 10 mg PO QHS 12/17/19 Omeprazole 20 mg PO DAILY 12/17/19 Ondansetron [Zofran Odt 4 mg Tablet] 4 mg PO BIDP PRN 12/17/19 Quetiapine Fumarate [Seroquel] 50 mg PO QHS 12/17/19 Allergies/Adverse Reactions: labetalol [Labetalol] Allergy (Severe, Verified 12/17/19 15:47) swelling, sob Penicillins Allergy (Severe, Verified 12/17/19 15:47) itching duloxetine Allergy (Verified 12/17/19 15:47) latex Allergy (Verified 12/17/19 15:47) linagliptin [From Tradjenta] Allergy (Verified 12/17/19 15:47) terbinafine Allergy (Verified 12/17/19 15:47) Liraglutide [From Victoza] Adverse Reaction (Verified 12/17/19 15:47) nausea/vomitting Review of Systems Constitutional: ABSENT: anorexia, chills, fatigue Eyes: ABSENT: visual disturbances Ears: ABSENT: hearing changes Nose, Mouth, and Throat: ABSENT: sore throat Cardiovascular: ABSENT: chest pain Respiratory: ABSENT: cough Gastrointestinal: ABSENT: abdominal pain, bloating, nausea, vomiting Genitourinary: ABSENT: dysuria Musculoskeletal: ABSENT: back pain Integumentary: PRESENT: wounds - multiple wounds to the left foot with exposed bone on the 1st, 2nd, and 5th toes.. ABSENT: pruritus, rash Neurological: ABSENT: confusion, convulsions, dizziness Psychiatric: ABSENT: anxiety, depression Endocrine: ABSENT: cold intolerance, heat intolerance Hematologic/Lymphatic: ABSENT: easy bleeding, easy bruising Physical Exam Vital Signs: Temp Pulse Resp BP Pulse Ox 98.3 F 93 18 125/89 H 97 12/18/19 04:51 12/18/19 04:51 12/18/19 04:51 12/18/19 04:51 12/18/19 04:51 Intake & Output 12/16/19 12/17/19 12/18/19 06:59 06:59 06:59 Intake Total 820 Balance 820 Weight 90.4 kg General appearance: PRESENT: no acute distress, cooperative Head exam: PRESENT: atraumatic, normocephalic Eye exam: PRESENT: EOMI, PERRLA. ABSENT: scleral icterus Mouth exam: PRESENT: moist, neck supple Neck exam: ABSENT: tenderness, thyromegaly, tracheal deviation Respiratory exam: PRESENT: unlabored. ABSENT: tachypnea, wheezes Cardiovascular exam: ABSENT: tachycardia Vascular exam: ABSENT: normal capillary refill GI/Abdominal exam: PRESENT: soft. ABSENT: distended, tenderness Rectal exam: PRESENT: deferred Extremities exam: PRESENT: other - arterial insufficiency ulcers to the left foot (1st, 2nd, and 5th toes). No palpable PT or DP pulses. Neurological exam: PRESENT: alert, awake, oriented to person, oriented to place, oriented to time, oriented to situation, CN II-XII grossly intact. ABSENT: motor sensory deficit Psychiatric exam: ABSENT: agitated, anxious, depressed Focused psych exam: ABSENT: delusional Skin exam: ABSENT: cyanosis, erythema Results Laboratory Results: 12/17/19 16:36 12/17/19 16:36 12/17/19 12/17/19 16:36 16:36 WBC 11.3 H RBC 4.19 Hgb 11.8 L Hct 36.1 MCV 86 MCH 28.2 MCHC 32.7 RDW 14.7 H Plt Count 338 Seg Neutrophils % 51.8 Sodium 140.3 Potassium 3.7 Chloride 95 L Carbon Dioxide 30 Anion Gap 15 BUN 30 H Creatinine 8.19 H Est GFR ( Amer) 6 L Glucose 133 H Calcium 10.0 Total Bilirubin 0.5 AST 21 Alkaline Phosphatase 139 H Total Protein 8.3 H Albumin 4.3 Impressions: Foot X-Ray 12/17/19 15:46 IMPRESSION: 1. Decreased mineralization and indistinct cortex involving the 3rd through 5th phalanges suggestive of osteomyelitis. Additional indistinct julio c at the distal 1st and 2nd digits also moderately suspicious for osteomyelitis. MRI could be considered for further characterization. 2. No fracture. Assessment & Plan - Diagnosis (1) Diabetic peripheral vascular disease Is this a current diagnosis for this admission?: Yes (2) Osteomyelitis of toe of left foot Is this a current diagnosis for this admission?: Yes - Plan Summary Plan Summary: 59 y/o F with arterial insufficiency ulcers and the presence of osteomyelitis on x-ray. She has areas of exposed bone hat are readily evident on physical exam. Her las doppler ultrasound showed monophasic infrapopliteal flow. At present I do not see evidence of overwhelming infection or sepsis. It is highly unlikely that her wounds and osteomyelitis will heal, however. I have recommended amputation. The minimum amputation would be a trans-metatarsal, however this is unlikely to be successful. The most appropriate amputation level, based on her vascular flow, is below the knee. The pt is unwilling to agree to amputation at this time. She would like do discuss the situation with her daughter. I will have the oncoming surgicalist revisit the discussion regarding amputation. Surgery will follow.
[2019-12-18 07:29] LABS: HEMATOCRIT 36.6 % (36.0-47.0); HEMOGLOBIN 12.1 g/dL (12.0-15.5); MEAN CORPUSCULAR HEMOGLOBIN 28.7 pg (27.0-33.4); MEAN CORPUSCULAR HGB CONC 33.2 g/dL (32.0-36.0); MEAN CORPUSCULAR VOLUME 86 fl (80-97); PLATELET COUNT 341 10^3/uL (150-450); RED BLOOD COUNT 4.23 10^6/uL (3.72-5.28); RED CELL DISTRIBUTION WIDTH 14.7 % (11.5-14.0); WHITE BLOOD COUNT 10.6 10^3/uL (4.0-10.5)
[2019-12-18 07:36] LABS: PROTHROMBIN TIME 14.4 SEC (11.4-15.4)
[2019-12-18 07:50] LABS: PARTIAL THROMBOPLASTIN TIME 34.4 SEC (23.5-35.8)
[2019-12-18 07:56] LABS: ANION GAP 16 (5-19); BLOOD UREA NITROGEN 34 mg/dL (7-20); CALCIUM 10.1 mg/dL (8.4-10.2); CARBON DIOXIDE 27 mmol/L (22-30); CHLORIDE 95 mmol/L (98-107); CHOLESTEROL 179.45 mg/dL (0-200); GLUCOSE 163 mg/dL (75-110); POTASSIUM 3.9 mmol/L (3.6-5.0); TRIGLYCERIDES 206 mg/dL (<150)
[2019-12-18 08:07] LABS: DIRECT LDL 97 mg/dL (<100)
[2019-12-18 08:14] LABS: VLDL CHOLESTEROL 41.2 mg/dL (10-31)
[2019-12-18] MEDS ORDERED: TRAMADOL HCL 50 MG TABLET PO PRN (09:05)
--- NOTE | 2019-12-18 09:28 | PDOC PROGRESS REPORT ---
Subjective Progress Note for:: 12/18/19 Subjective:: some pains left foot Reason For Visit: OSTEOMYELITIS LEFT TOES Physical Exam Vital Signs: Temp Pulse Resp BP Pulse Ox 98.3 F 93 18 125/89 H 97 12/18/19 04:51 12/18/19 04:51 12/18/19 04:51 12/18/19 04:51 12/18/19 04:51 Intake & Output 12/17/19 12/18/19 12/19/19 06:59 06:59 06:59 Intake Total 820 Balance 820 Weight 90.4 kg Exam: exposed bone left 2nd toe IP joint area. Left foot swollen with tenderness. Need to talk with daughter re-amputation TMA vs Left BKA.Daughter coming this pm. We can feed patient now since she claims very hungry. Keep NPO after MN for possible amputation tomorrow after HDialysis. Results Laboratory Results: 12/18/19 06:20 12/18/19 06:20 12/17/19 12/17/19 12/18/19 16:36 16:36 06:20 WBC 11.3 H 10.6 H RBC 4.19 4.23 Hgb 11.8 L 12.1 Hct 36.1 36.6 MCV 86 86 MCH 28.2 28.7 MCHC 32.7 33.2 RDW 14.7 H 14.7 H Plt Count 338 341 Seg Neutrophils % 51.8 Sodium 140.3 Potassium 3.7 Chloride 95 L Carbon Dioxide 30 Anion Gap 15 BUN 30 H Creatinine 8.19 H Est GFR ( Amer) 6 L Glucose 133 H Calcium 10.0 Magnesium Total Bilirubin 0.5 AST 21 Alkaline Phosphatase 139 H Total Protein 8.3 H Albumin 4.3 Triglycerides Cholesterol LDL Cholesterol Direct VLDL Cholesterol HDL Cholesterol TSH 12/18/19 12/18/19 06:20 06:20 WBC RBC Hgb Hct MCV MCH MCHC RDW Plt Count Seg Neutrophils % Sodium 138.1 Potassium 3.9 Chloride 95 L Carbon Dioxide 27 Anion Gap 16 BUN 34 H Creatinine 8.86 H Est GFR ( Amer) 6 L Glucose 163 H Calcium 10.1 Magnesium 2.1 Total Bilirubin AST Alkaline Phosphatase Total Protein Albumin Triglycerides 206 H Cholesterol 179.45 LDL Cholesterol Direct 97 VLDL Cholesterol 41.2 H HDL Cholesterol 53 TSH 6.93 H Impressions: Foot X-Ray 11/02/20 15:46 IMPRESSION: 1. Decreased mineralization and indistinct cortex involving the 3rd through 5th phalanges suggestive of osteomyelitis. Additional indistinct julio c at the distal 1st and 2nd digits also moderately suspicious for osteomyelitis. MRI could be considered for further characterization. 2. No fracture. Assessment & Plan - Diagnosis (1) osteomyelitis left toes Is this a current diagnosis for this admission?: Yes (2) Diabetic peripheral neuropathy associated with type 2 diabetes mellitus Is this a current diagnosis for this admission?: Yes (3) Diabetic peripheral vascular disease Is this a current diagnosis for this admission?: Yes (4) ESRD on hemodialysis Is this a current diagnosis for this admission?: Yes - Time Critical Time spent with patient: 15-24 minutes Anticipated Discharge Disposition: [facility] Anticipated Discharge Timeframe: 1 week - Inpatient Certification Medical Necessity: Need for IV Antibiotics, Need for Surgery - Plan Summary Plan Summary: 59 yo female on HD foe ESRD now with osteomyelitis left foot,all toes involved with oened 2nd IP joint area. Severe left infrapopliteal artery on ultrasound done 10/03.Discussed with patient's daughter and told her best procedure is a BKA because of bad circulation. Patient in attendance during conversation and now amenable to left BKA. schedule Left BKA tomorrow after her HD Continue IV antibiotics
[2019-12-18] MEDS: DOCUSATE SODIUM 100 MG CAPSULE PO SCH ×2 (10:00→18:29)
[2019-12-18 10:08] LABS: FREE T3 3.96 pg/mL (2.77-5.27); FREE T4 (FREE THYROXINE) 1.12 ng/dL (0.78-2.19)
--- NOTE | 2019-12-18 10:18 | PDOC CONSULTATION ---
Consultation Consult Date: 12/18/19 Provider Consulted: RENA ALSTON Consult reason:: ESRD History of Present Illness Admission Date/PCP: 12/17/19 20:21 YENIFER PETERSON History of Present Illness: MARIOLA GAR is a 59 year old female with past medical history of DM2, HTN, HLD, ESRD on HD ,Tue who presented to the emergency room at the instruction of the wound care clinic due to worsening of her chronic diabetic left foot wound. She has been following with wound care for the worsening diabetic wound and was told to go to the ER for evaluation of her toes needing amputated, first second and fifth toes. In the emergency room she had a x-ray of her foot, radiographic evidence of o steomyelitis involving all of the toes of the left foot. She had a white count of 11.3. Other labs were stable fo an ESRD patient. She was seen by Dr. Barraza who determined that she needed a BKA. At the time the patient was wanting to wait on the surgery and talk to her family before making the decision. She was start on vanc and cipro. Today when I saw her she was more open to the idea of a BKA. According to the nurse in charge of her care she is going to be NPO after midnight tonight. She denies chest pain, SOB, fevers, chills, n/v/d/c. Past Medical History Cardiac Medical History: Reports: CHF-Diastolic, Coronary Artery Disease, Hyperlipidemia, Hypertension-primary, Myocardial Infarction - 2008, Peripheral Vascular Disease Denies: Atrial Fibrillation Pulmonary Medical History: Reports: Sleep Apnea - On CPap Denies: Asthma, Chronic Obstructive Pulmonary Disease (COPD) EENT Medical History: Denies: Cataracts, Ears - Hearing aids Neurological Medical History: Reports: Other - Diabetic peripheral neuropathy Denies: Hemorrhagic CVA, Ischemic CVA, Seizures Endocrine Medical History: Reports: Diabetes Mellitus Type 2, Hypothyroidism, Obesity Denies: Diabetes Mellitus Type 1, Hyperthyroidism Complications of Diabetes: Reports: None, Nephropathy, Retinopathy Renal/ Medical History: Reports: End Stage Renal Disease, Hypercalcemia, Other - Pheochromocytoma Denies: Nephrolithiasis Malignancy Medical History: Reports: Skin Cancer GI Medical History: Reports: Gastroesophageal Reflux Disease Denies: Cirrhosis, Hepatitis, Peptic Ulcer Disease Musculoskeltal Medical History: Reports: Arthritis, Gout, Systemic Lupus Erythematosus, Other - Systemic lupus erythematosus, chronic pain syndrome Skin Medical History: Denies: Eczema, Psoriasis Psychiatric Medical History: Reports: Depression Denies: Alcohol Dependency, Substance Abuse, Tobacco Dependency Traumatic Medical History: Reports: None Infectious Medical History: Reports: None Past Surgical History Past Surgical History: Reports: Appendectomy, Section, Cholecystectomy, Herniorrhaphy, Hysterectomy, Orthopedic Surgery - cancer removed from back, Other - parathyroidectomy, 3-1/2 glands removed on 01/13/2016; right adrenalectomy Social History Lives with: Family Smoking Status: Never Smoker Electronic Cigarette use?: No Frequency of Alcohol Use: None Hx Recreational Drug Use: No Drugs: None Hx Prescription Drug Abuse: No - Advance Directive Resuscitation Status: Full Code Family History Parental Family History Reviewed: No Children Family History Reviewed: Yes Sibling(s) Family History Reviewed.: Unknown Medication/Allergy Home Medications: Atorvastatin Calcium [Lipitor 20 mg Tablet] 20 mg PO QHS 12/17/19 Clopidogrel Bisulfate [Plavix 75 mg Tablet] 75 mg PO DAILY 12/17/19 Ergocalciferol (Vitamin D2) [Drisdol 50,000 unit (1.25MG) Capsule] 50,000 unit PO AQUINO@1000 12/17/19 Gabapentin [Neurontin 400 mg Capsule] 400 mg PO TID 12/17/19 Hydroxyzine Pamoate [Vistaril 25 mg Capsule] 50 mg PO .BEFORE DIALYSIS 12/17/19 Insulin Lispro [Humalog Kwikpen U-100] 10 unit SQ MEALS 12/17/19 Melatonin [Melatonin 5 mg Tablet] 10 mg PO QHS 12/17/19 Omeprazole 20 mg PO DAILY 12/17/19 Ondansetron [Zofran Odt 4 mg Tablet] 4 mg PO BIDP PRN 12/17/19 Quetiapine Fumarate [Seroquel] 50 mg PO QHS 12/17/19 Allergies/Adverse Reactions: labetalol [Labetalol] Allergy (Severe, Verified 12/17/19 15:47) swelling, sob Penicillins Allergy (Severe, Verified 12/17/19 15:47) itching duloxetine Allergy (Verified 12/17/19 15:47) latex Allergy (Verified 12/17/19 15:47) linagliptin [From Tradjenta] Allergy (Verified 12/17/19 15:47) terbinafine Allergy (Verified 12/17/19 15:47) Liraglutide [From Victoza] Adverse Reaction (Verified 12/17/19 15:47) nausea/vomitting Review of Systems Constitutional: ABSENT: chills, fever(s), headache(s), weakness Eyes: ABSENT: visual disturbances Cardiovascular: ABSENT: chest pain, dyspnea on exertion, edema, orthropnea, palpitations Respiratory: ABSENT: cough, dyspnea Gastrointestinal: ABSENT: constipation, diarrhea, nausea, vomiting Genitourinary: ABSENT: difficulty urinating, dysuria Musculoskeletal: PRESENT: deformity, other - pain in her left foot Neurological: ABSENT: confusion, focal weakness, weakness Psychiatric: ABSENT: anxiety, depression Physical Exam Vital Signs: Temp Pulse Resp BP Pulse Ox 97.4 F 76 20 116/37 L 100 12/18/19 08:02 12/18/19 08:02 12/18/19 08:02 12/18/19 08:02 12/18/19 08:02 Intake & Output 12/17/19 12/18/19 12/19/19 06:59 06:59 06:59 Intake Total 820 Balance 820 Weight 90.4 kg General appearance: PRESENT: no acute distress, obese, well-developed, well- nourished Mouth exam: PRESENT: moist, neck supple Neck exam: ABSENT: JVD, tracheal deviation Respiratory exam: PRESENT: clear to auscultation charity. ABSENT: crackles, rales, rhonchi, wheezes Cardiovascular exam: PRESENT: RRR, +S1, +S2 GI/Abdominal exam: PRESENT: soft. ABSENT: firm, guarding, tenderness Extremities exam: PRESENT: tenderness, other - left foot is bandaged. ABSENT: pedal edema, +1 edema, +2 edema Musculoskeletal exam: PRESENT: tenderness. ABSENT: normal inspection Neurological exam: PRESENT: alert, awake, oriented to person, oriented to place, oriented to time, oriented to situation Skin exam: PRESENT: dry, intact, warm Results Laboratory Results: 12/18/19 06:20 12/18/19 06:20 12/17/19 12/17/19 12/18/19 16:36 16:36 06:20 WBC 11.3 H 10.6 H RBC 4.19 4.23 Hgb 11.8 L 12.1 Hct 36.1 36.6 MCV 86 86 MCH 28.2 28.7 MCHC 32.7 33.2 RDW 14.7 H 14.7 H Plt Count 338 341 Seg Neutrophils % 51.8 Sodium 140.3 Potassium 3.7 Chloride 95 L Carbon Dioxide 30 Anion Gap 15 BUN 30 H Creatinine 8.19 H Est GFR ( Amer) 6 L Glucose 133 H Calcium 10.0 Magnesium Total Bilirubin 0.5 AST 21 Alkaline Phosphatase 139 H Total Protein 8.3 H Albumin 4.3 Triglycerides Cholesterol LDL Cholesterol Direct VLDL Cholesterol HDL Cholesterol TSH 12/18/19 12/18/19 06:20 06:20 WBC RBC Hgb Hct MCV MCH MCHC RDW Plt Count Seg Neutrophils % Sodium 138.1 Potassium 3.9 Chloride 95 L Carbon Dioxide 27 Anion Gap 16 BUN 34 H Creatinine 8.86 H Est GFR ( Amer) 6 L Glucose 163 H Calcium 10.1 Magnesium 2.1 Total Bilirubin AST Alkaline Phosphatase Total Protein Albumin Triglycerides 206 H Cholesterol 179.45 LDL Cholesterol Direct 97 VLDL Cholesterol 41.2 H HDL Cholesterol 53 TSH 6.93 H Impressions: Foot X-Ray 12/17/19 15:46 IMPRESSION: 1. Decreased mineralization and indistinct cortex involving the 3rd through 5th phalanges suggestive of osteomyelitis. Additional indistinct julio c at the distal 1st and 2nd digits also moderately suspicious for osteomyelitis. MRI could be considered for further characterization. 2. No fracture. Assessment & Plan - Diagnosis (1) ESRD on hemodialysis Is this a current diagnosis for this admission?: Yes Plan: Patient typically has dialysis on TTS. Will look to have her dialyze tomorrow before surgery so that she is stable for surgery tomorrow. Will give vanc after. (2) Osteomyelitis of toe of left foot Is this a current diagnosis for this admission?: Yes Plan: Per surgery, BKA scheduled and antibiotics are lined up. Will look to dose properly to an ESRD patient. (3) Anemia in chronic kidney disease Qualifiers: Chronic kidney disease stage: on chronic dialysis Qualified Code(s): N18.6 - End stage renal disease; D63.1 - Anemia in chronic kidney disease; Z99.2 - Dependence on renal dialysis Is this a current diagnosis for this admission?: Yes Plan: no indication for retacrit today. (4) Hypertension Qualifiers: Hypertension type: secondary to endocrine disorders Qualified Code(s): I15.2 - Hypertension secondary to endocrine disorders Is this a current diagnosis for this admission?: Yes Plan: controlled on current medications (5) Diabetic peripheral vascular disease Is this a current diagnosis for this admission?: Yes (6) Obesity Qualifiers: Obesity type: due to excess calories Obesity classification: adult class 2 (BMI 35 - 39.9) Serious obesity comorbidity presence: with serious comorbidity Body mass index: BMI 36.0-36.9 Qualified Code(s): E66.01 - Morbid (severe) obesity due to excess calories; Z68.36 - Body mass index [BMI] 36.0-36.9, adult Is this a current diagnosis for this admission?: Yes
[2019-12-18] MEDS: INSULIN LISPRO 100 UNIT/ML 3 ML VIAL SUBCUT SCH ×5 (11:00→22:17)
[2019-12-18] MEDS ORDERED: INSULIN LISPRO 100 UNIT/ML 3 ML VIAL SUBCUT SCH (12:00)
[2019-12-18] MEDS: GABAPENTIN 400 MG CAPSULE PO SCH ×3 (12:37→16:08)
[2019-12-18] MEDS ORDERED: DEXTROSE 40% GEL 15 GM TUBE PO PRN ×2 (13:15)
[2019-12-18] MEDS ORDERED: DEXTROSE 50%-WATER 25 GM/50 ML DISP.SYRIN IV PRN ×2 (13:15)
[2019-12-18] MEDS ORDERED: GLUCAGON,HUMAN RECOMB 1 MG INJ SUBCUT PRN (13:15)
[2019-12-18] MEDS: CLOPIDOGREL BISULFATE 75 MG TABLET PO SCH (15:45)
[2019-12-18] MEDS ORDERED: DEXTROSE 5% IV SCH (18:00)
[2019-12-18] MEDS ORDERED: WATER IV SCH (18:00)
[2019-12-18] MEDS ORDERED: VANCOMYCIN HCL IV SCH (18:00)
--- NOTE | 2019-12-18 18:14 | PDOC PROGRESS REPORT ---
Subjective Progress Note for:: 12/18/19 Subjective:: Patient complains of mild 3-4/10 pain in her left leg. Reason For Visit: OSTEOMYELITIS LEFT TOES Physical Exam Vital Signs: Temp Pulse Resp BP Pulse Ox 97.9 F 82 18 134/56 H 98 12/18/19 15:10 12/18/19 15:10 12/18/19 15:10 12/18/19 15:10 12/18/19 15:10 Intake & Output 12/17/19 12/18/19 12/19/19 06:59 06:59 06:59 Intake Total 820 Balance 820 Weight 90.4 kg General appearance: PRESENT: no acute distress, cooperative Neck exam: ABSENT: JVD Respiratory exam: PRESENT: symmetrical, unlabored. ABSENT: tachypnea, wheezes Cardiovascular exam: PRESENT: RRR, +S1, +S2. ABSENT: tachycardia GI/Abdominal exam: PRESENT: soft. ABSENT: rebound, rigid, tenderness Extremities exam: PRESENT: other - Wound on left foot wrapped in clean dressing. Neurological exam: PRESENT: alert, awake, oriented to person, oriented to place, oriented to time Psychiatric exam: ABSENT: agitated, anxious Results Laboratory Results: 12/18/19 06:20 12/18/19 06:20 12/18/19 12/18/19 12/18/19 06:20 06:20 06:20 WBC 10.6 H RBC 4.23 Hgb 12.1 Hct 36.6 MCV 86 MCH 28.7 MCHC 33.2 RDW 14.7 H Plt Count 341 Sodium 138.1 Potassium 3.9 Chloride 95 L Carbon Dioxide 27 Anion Gap 16 BUN 34 H Creatinine 8.86 H Est GFR ( Amer) 6 L Glucose 163 H Calcium 10.1 Magnesium 2.1 Triglycerides 206 H Cholesterol 179.45 LDL Cholesterol Direct 97 VLDL Cholesterol 41.2 H HDL Cholesterol 53 TSH 6.93 H Free T4 Free T3 pg/mL 12/18/19 06:20 WBC RBC Hgb Hct MCV MCH MCHC RDW Plt Count Sodium Potassium Chloride Carbon Dioxide Anion Gap BUN Creatinine Est GFR ( Amer) Glucose Calcium Magnesium Triglycerides Cholesterol LDL Cholesterol Direct VLDL Cholesterol HDL Cholesterol TSH Free T4 1.12 Free T3 pg/mL 3.96 Impressions: Foot X-Ray 12/17/19 15:46 IMPRESSION: 1. Decreased mineralization and indistinct cortex involving the 3rd through 5th phalanges suggestive of osteomyelitis. Additional indistinct julio c at the distal 1st and 2nd digits also moderately suspicious for osteomyelitis. MRI could be considered for further characterization. 2. No fracture. Assessment and Plan - Diagnosis (1) Osteomyelitis of toe of left foot Is this a current diagnosis for this admission?: Yes Plan: Likely complication of patient's peripheral vascular disease and diabetes. Surgery has evaluated patient and is planning to take patient to the operating room tomorrow for amputation. Continue broad-spectrum IV antibiotics Monitor CBC and check ESR in the morning. Pain control as needed Blood cultures have been obtained (2) Diabetic peripheral vascular disease Is this a current diagnosis for this admission?: Yes Plan: Patient informs me that she had angioplasty done to the left leg about 2 months ago. I will check arterial Dopplers to see if any improvement in blood flow as this will certainly affect wound healing following amputation. 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 Hemoglobin A1c is 8.3. (4) ESRD on hemodialysis Is this a current diagnosis for this admission?: Yes Plan: Nephrology consulted. Dialysis was planned for today. (5) Hypertension Qualifiers: Hypertension type: secondary to endocrine disorders Qualified Code(s): I15.2 - Hypertension secondary to endocrine disorders Is this a current diagnosis for this admission?: Yes Plan: Has prior history of hypertension but notably not on any antihypertensive medications her BP has been normal. Did however present with high blood pressure initially which may have been due to pain. Will monitor for now. Will start on medications if indicated. (6) Subclinical hypothyroidism Is this a current diagnosis for this admission?: Yes Plan: Outpatient follow-up for repeat TFTs in 4 to 6 weeks. - Time Time Spent with patient: 15-24 minutes Anticipated Discharge Disposition: Home, Self Care Anticipated Discharge Timeframe: within 72 hours
[2019-12-18] MEDS ORDERED: HYDROXYZINE PAMOATE 25 MG CAPSULE PO ONE (18:19)
[2019-12-18] MEDS ORDERED: DIPHENHYDRAMINE HCL 25 MG CAPSULE PO ONE (20:45)
[2019-12-18] MEDS ORDERED: OXYCODONE HCL IR 5 MG TABLET PO ONE (20:45)
[2019-12-18] MEDS: ATORVASTATIN CALCIUM 20 MG TABLET PO SCH (22:16)
[2019-12-18] MEDS: MELATONIN 5 MG TABLET PO SCH (22:16)
[2019-12-18] MEDS: QUETIAPINE FUMARATE 25 MG TABLET PO SCH (22:16)
[2019-12-18] MEDS: CIPROFLOXACIN 400 MG/D5W RTU 400 MG/200 ML RTUPB IV SCH (22:23)
[2019-12-19] MEDS ORDERED: NORMAL SALINE 1000 ML 1,000 ML IV PRN (05:00)
[2019-12-19] MEDS: HEPARIN SOD (PORCINE) 5,000 UNIT/ML 1 ML VIAL SUBCUT SCH ×3 (05:18→21:39)
[2019-12-19] MEDS: PANTOPRAZOLE SODIUM 40 MG TABLET.DR PO SCH (05:19)
[2019-12-19 07:43] LABS: HEMATOCRIT 31.9 % (36.0-47.0); HEMOGLOBIN 10.7 g/dL (12.0-15.5); MEAN CORPUSCULAR HEMOGLOBIN 28.5 pg (27.0-33.4); MEAN CORPUSCULAR HGB CONC 33.4 g/dL (32.0-36.0); MEAN CORPUSCULAR VOLUME 85 fl (80-97); PLATELET COUNT 284 10^3/uL (150-450); RED BLOOD COUNT 3.74 10^6/uL (3.72-5.28); RED CELL DISTRIBUTION WIDTH 14.8 % (11.5-14.0); WHITE BLOOD COUNT 7.3 10^3/uL (4.0-10.5)
[2019-12-19] MEDS: INSULIN LISPRO 100 UNIT/ML 3 ML VIAL SUBCUT SCH ×7 (08:00→21:39)
[2019-12-19 08:06] LABS: ANION GAP 15 (5-19); BLOOD UREA NITROGEN 39 mg/dL (7-20); CALCIUM 9.3 mg/dL (8.4-10.2); CARBON DIOXIDE 25 mmol/L (22-30); CHLORIDE 95 mmol/L (98-107); GLUCOSE 160 mg/dL (75-110); POTASSIUM 4.2 mmol/L (3.6-5.0)
[2019-12-19] MEDS ORDERED: LIDOCAINE 2% INJ-PF (20 MG/ML) 2 ML AMPUL ONE (08:10)
[2019-12-19] MEDS ORDERED: PHENYLEPHRINE HCL INJ/PF 10 MG/1 ML SDV ONE (08:10)
[2019-12-19 08:19] LABS: ERYTHROCYTE SEDIMENTATION RATE 74 mm/hr (0-30)
[2019-12-19] MEDS ORDERED: MIDAZOLAM 2 MG/2 ML INJ ONE (12:20)
[2019-12-19] MEDS ORDERED: FENTANYL CITRATE INJ/PF 100 MCG/2 ML AMPUL ONE (12:20)
[2019-12-19] MEDS ORDERED: PROPOFOL INJ 200 MG/20 ML VIAL IV ONE (12:21)
[2019-12-19] MEDS ORDERED: DEXAMETHASONE SOD PHOSPHATE INJ 4 MG/1 ML VIAL ONE (12:21)
[2019-12-19] MEDS ORDERED: MORPHINE SULFATE 10 MG/ML INJ ONE (12:21)
[2019-12-19] MEDS ORDERED: ONDANSETRON HCL INJ/PF 4 MG/2 ML SDV ONE ×2 (12:22→16:09)
[2019-12-19 12:31] LABS: ANION GAP 11 (5-19); CALCIUM 9.3 mg/dL (8.4-10.2); CARBON DIOXIDE 29 mmol/L (22-30); CHLORIDE 95 mmol/L (98-107); GLUCOSE 137 mg/dL (75-110); POTASSIUM 4.1 mmol/L (3.6-5.0)
[2019-12-19 12:38] LABS: BLOOD UREA NITROGEN 19 mg/dL (7-20)
[2019-12-19] MEDS ORDERED: LIDOCAINE 1% INJ-PF (10 MG/ML) 30 ML SDV ONE ×2 (12:39→14:22)
--- NOTE | 2019-12-19 12:46 | PDOC PROGRESS REPORT ---
Subjective Progress Note for:: 12/19/19 Subjective:: Patient complains of 7/10 pain in her left foot today. Denies any shortness of breath. During dialysis Reason For Visit: OSTEOMYELITIS LEFT TOES Physical Exam Vital Signs: Temp Pulse Resp BP Pulse Ox 97.5 F 85 16 154/79 H 99 12/19/19 03:27 12/19/19 03:27 12/19/19 03:27 12/19/19 03:27 12/19/19 03:27 Intake & Output 12/18/19 12/19/19 12/20/19 06:59 06:59 06:59 Intake Total 863 731 6728 Output Total 1926 Balance 820 440 -926 Weight 90.4 kg 91.4 kg General appearance: PRESENT: no acute distress, cooperative Neck exam: ABSENT: JVD Respiratory exam: PRESENT: symmetrical, unlabored. ABSENT: tachypnea, wheezes Cardiovascular exam: PRESENT: RRR, +S1, +S2. ABSENT: tachycardia GI/Abdominal exam: PRESENT: soft. ABSENT: rebound, rigid, tenderness Extremities exam: PRESENT: tenderness - Mild tenderness at site of left toe wound Neurological exam: PRESENT: alert, awake, oriented to person, oriented to place Results Laboratory Results: 12/19/19 07:20 12/19/19 11:44 12/19/19 12/19/19 12/19/19 07:20 07:20 11:44 WBC 7.3 RBC 3.74 Hgb 10.7 L Hct 31.9 L MCV 85 MCH 28.5 MCHC 33.4 RDW 14.8 H Plt Count 284 Sodium 134.6 L 135.2 L Potassium 4.2 4.1 Chloride 95 L 95 L Carbon Dioxide 25 29 Anion Gap 15 11 BUN 39 H 19 D Creatinine 9.74 H 5.31 H Est GFR ( Amer) 5 L 10 L Glucose 160 H 137 H Calcium 9.3 9.3 Magnesium 2.0 Impressions: Foot X-Ray 12/17/19 15:46 IMPRESSION: 1. Decreased mineralization and indistinct cortex involving the 3rd through 5th phalanges suggestive of osteomyelitis. Additional indistinct julio c at the distal 1st and 2nd digits also moderately suspicious for osteomyelitis. MRI could be considered for further characterization. 2. No fracture. Assessment and Plan - Diagnosis (1) Osteomyelitis of toe of left foot Is this a current diagnosis for this admission?: Yes Plan: Likely complication of patient's peripheral vascular disease and diabetes. Plan for amputation today in the OR for source control. Continue broad-spectrum IV antibiotics CBC showing resolution of leukocytosis. ESR 74. Pain control as needed We will continue to follow blood cultures. We will follow up deep tissue culture from amputation. (2) Diabetic peripheral vascular disease Is this a current diagnosis for this admission?: Yes Plan: Awaiting results of arterial Doppler. Patient actually informs me that she had angioplasty done to the left leg about 2 months ago. 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 Hemoglobin A1c is 8.3. (4) ESRD on hemodialysis Is this a current diagnosis for this admission?: Yes Plan: Nephrology consulted. Dialysis done today before the OR. (5) Hypertension Qualifiers: Hypertension type: secondary to endocrine disorders Qualified Code(s): I15.2 - Hypertension secondary to endocrine disorders Is this a current diagnosis for this admission?: Yes Plan: Has prior history of hypertension but notably not on any antihypertensive medications her BP has been normal. Did however present with high blood pressure initially which may have been due to pain. Will monitor for now. Will start on medications if indicated. (6) Subclinical hypothyroidism Is this a current diagnosis for this admission?: Yes Plan: Outpatient follow-up for repeat TFTs in 4 to 6 weeks. - Time Time Spent with patient: 15-24 minutes Anticipated Discharge Disposition: Home with Home Health Anticipated Discharge Timeframe: within 72 hours
--- NOTE | 2019-12-19 14:24 | RADIOLOGY REPORT (SQ) ---
EXAM DESCRIPTION: ARTERIAL LOWER EXTREM UNILAT IMAGES COMPLETED DATE/TIME: 12/18/2019 8:49 pm REASON FOR STUDY: PVD Left leg COMPARISON: None. TECHNIQUE: Dynamic and static dumont scale and color images acquired of the lower left extremity arter ies. Additional selected spectral images recorded. ABIs recorded. LIMITATIONS: None. FINDINGS: LEFT LEG: ABIS: Not performed. INFLOW ARTERIES: Normal, no obstruction evident. FEMORAL ARTERIES:Biphasic waveforms. The vessel appears occluded distally with collateral vessels jimy ntified. POPLITEAL ARTERY:Monophasic waveforms. Normal, no velocity elevation to suggest focal stenosis. Ayala l color Doppler evaluation. No aneurysm. PATENT TIBIOPERONEAL TRUNK AND 3 VESSEL RUNOFF: Patent posterior tibial and anterior tibial artery. Waveforms are monophasic. Peroneal appears occluded. TBI: Not performed. OTHER: No other significant finding. 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 Monophasic waveforms in the popliteal and visualized inf rapopliteal vessels. Peroneal artery appears occluded. Recommend conventional angiography for furth er assessment. Alternatively CTA could be performed for planning of intervention. COMMENT: OM NORMAL: Greater than 1.0 MINIMAL DISEASE: 0.9 to 1.0 CLAUDICATION: 0.5 to 0.9 SEVERE ARTERIAL DISEASE: Less than 0.5 [facility] NORMAL: Greater than 1.0 (1.2 If Heavy Calcifications) NORMAL TO MILD ISCHEMIA: 0.8 to 1.0 MODERATE ISCHEMIA: 0.4 to 0.8 SEVERE ISCHEMIA: Less than 0.4 TECHNICAL DOCUMENTATION: JOB ID: [id number] 2010 [employer]- All Rights Reserved Reading location - IP/workstation name: [email or web address]
[2019-12-19] MEDS ORDERED: DIPHENHYDRAMINE HCL 50 MG/ML VIAL IV PRN (14:28)
[2019-12-19] MEDS ORDERED: FENTANYL CITRATE INJ/PF 100 MCG/2 ML AMPUL IV PRN ×3 (14:28)
[2019-12-19] MEDS ORDERED: VANCOMYCIN HCL 750 MG in DEXTROSE 5%-WATER 250 ML IV SCH (18:00)
[2019-12-19] MEDS: VANCOMYCIN HCL 750 MG in DEXTROSE 5%-WATER 250 ML IV SCH (18:41)
[2019-12-19] MEDS: DOCUSATE SODIUM 100 MG CAPSULE PO SCH ×2 (18:43)
[2019-12-19] MEDS: PROMETHAZINE HCL INJ 25 MG/1 ML VIAL IV PRN (19:09)
[2019-12-19] MEDS: QUETIAPINE FUMARATE 25 MG TABLET PO SCH (21:39)
[2019-12-19] MEDS: MELATONIN 5 MG TABLET PO SCH (21:40)
[2019-12-19] MEDS: ATORVASTATIN CALCIUM 20 MG TABLET PO SCH (21:40)
--- NOTE | 2019-12-19 21:40 | Operative Report ---
Operative Report DATE OF SURGERY: 12/19/19 PREOPERATIVE DIAGNOSIS: Osteomyelitis of the left toes and peripheral vascular disease of left leg POSTOPERATIVE DIAGNOSIS: Same OPERATION: Left below-knee amputation SURGEON: MOO SIMEON ANESTHESIA: GA TISSUE REMOVED OR ALTERED: Lower leg below the left knee COMPLICATIONS: None ESTIMATED BLOOD LOSS: 150 cc QUANTITATIVE BLOOD LOSS: 150 INTRAOPERATIVE FINDINGS: Calcified arterial vessels but the muscles are pink and viable, minimal edema PROCEDURE: After adequate general anesthesia patient was placed in supine position in the left lower leg was then prepped and draped in the usual sterile fashion. Appropriate timeout was then called. Next a transverse incision made about 6 cm below the tibial tubercle in a transverse fashion about 40% of the circumference. The incision was extended distally creating a posterior flap. The anterior muscles were then divided with cautery and vessels though some small ones were clamped and ligated with 3-0 Vicryl ties. Other oozing were were controlled with cautery. The periosteum was elevated anterior tibia and subsequently divided transversely with saw. The fibula was also divided with a saw about 1 cm above the tibia. The posterior muscles were then shaved down to the distal skin incision creating a posterior flap. Hemostasis obtained with ligation using 3-0 Vicryl and suture ligating with 3-0 Prolene. Nerves were pulled out and ligated and divided distally. The operative site was then irrigated with saline solution. After adequate hemostasis noted the anterior fascia to the tibial bone was then sutured to the gastrocnemius muscle and fascia creating a snug closure. This was continued laterally and medially. 1/2 inch Josefa drain were placed on each corner of the stump threaded into the mid part of the stump using a tonsil clamp. The drains were anchored to the skin with 2-0 nylon. The skin with were then reapproximated with sumeet. The stump was then dressed with a layer of Xeroform gauze and wrap with 4 x 4, Kerlix. A posterior splint was then placed and wrapped with 6 inch Bryan bandage. Needle and instrument counts were correct. Patient brought to the recovery room satisfactory condition.
[2019-12-19] MEDS: CIPROFLOXACIN 400 MG/D5W RTU 400 MG/200 ML RTUPB IV SCH (21:43)
--- NOTE | 2019-12-19 22:09 | PDOC PROGRESS REPORT ---
Subjective Progress Note for:: 12/19/19 Subjective:: Patient was admitted due to osteomyelitis of the left toes. He is a scheduled for left BKA after dialysis today. I am seeing her on dialysis this morning. Aside from the left foot pain she has no further complaints. Patient stable on dialysis with relatively low blood pressure. Otherwise she is tolerating procedure well. Reason For Visit: OSTEOMYELITIS LEFT TOES Physical Exam Vital Signs: Temp Pulse Resp BP Pulse Ox 97.5 F 85 16 154/79 H 99 12/19/19 03:27 12/19/19 03:27 12/19/19 03:27 12/19/19 03:27 12/19/19 03:27 Intake & Output 12/18/19 12/19/19 12/20/19 06:59 06:59 06:59 Intake Total 820 440 Balance 820 440 Weight 90.4 kg 91.4 kg Vitals during dialysis: Blood pressure 101/77, heart rate of 79, blood flow of 450 mL/min and dialysate flow rate of 800 mL/min. Exam: General appearance: PRESENT: no acute distress, cooperative, well-developed, well-nourished Head exam: PRESENT: atraumatic, normocephalic Eye exam: PRESENT: conjunctiva slightly pale, PERRLA. ABSENT: scleral icterus Neck exam: ABSENT: JVD Respiratory exam: PRESENT: Normal breath sounds. ABSENT: crackles, rales, rhonchi, unlabored, wheezes Cardiovascular exam: PRESENT: Regular rate rhythm -+S1, +S2. ABSENT: diastolic murmur, systolic murmur GI/Abdominal exam: PRESENT: normal bowel sounds, soft. ABSENT: guarding, mass, tenderness Extremities exam: Trace left leg edema, left foot in bandage. Neurological exam: PRESENT: alert, awake, oriented to person, place and time. Skin exam: PRESENT: dry, warm, Cardiovascular exam: PRESENT: RRR, +S1, +S2 GI/Abdominal exam: PRESENT: soft. ABSENT: firm, guarding, tenderness Results Laboratory Results: 12/19/19 07:20 12/19/19 07:20 12/18/19 12/19/19 12/19/19 06:20 07:20 07:20 WBC 7.3 RBC 3.74 Hgb 10.7 L Hct 31.9 L MCV 85 MCH 28.5 MCHC 33.4 RDW 14.8 H Plt Count 284 Sodium 134.6 L Potassium 4.2 Chloride 95 L Carbon Dioxide 25 Anion Gap 15 BUN 39 H Creatinine 9.74 H Est GFR ( Amer) 5 L Glucose 160 H Calcium 9.3 Magnesium 2.0 Free T4 1.12 Free T3 pg/mL 3.96 Impressions: Foot X-Ray 12/17/19 15:46 IMPRESSION: 1. Decreased mineralization and indistinct cortex involving the 3rd through 5th phalanges suggestive of osteomyelitis. Additional indistinct julio c at the distal 1st and 2nd digits also moderately suspicious for osteomyelitis. MRI could be considered for further characterization. 2. No fracture. Assessment & Plan - Diagnosis (1) ESRD on hemodialysis Is this a current diagnosis for this admission?: Yes Plan: We will do dialysis today for 3 hours, using the patient's AV fistula, with 3 potassium bath, blood flow rate of 450 mL per minute, dialysate flow rate of 800 mL per minute, ultrafiltration 1 L as tolerated, no heparin and no Retacrit. Ultrafiltration will be adjusted accordingly with blood pressure. Patient being monitored throughout dialysis treatment. (2) osteomyelitis left toes Is this a current diagnosis for this admission?: Yes Plan: On IV ciprofloxacin and vancomycin. For left BKA after dialysis today. (3) Diabetic peripheral vascular disease Is this a current diagnosis for this admission?: Yes (4) Anemia in chronic kidney disease Qualifiers: Chronic kidney disease stage: on chronic dialysis Qualified Code(s): N18.6 - End stage renal disease; D63.1 - Anemia in chronic kidney disease; Z99.2 - Dependence on renal dialysis Is this a current diagnosis for this admission?: Yes Plan: Retacrit on dialysis as needed. (5) Diabetes mellitus type 2 in obese Is this a current diagnosis for this admission?: Yes (6) Hypertension Qualifiers: Hypertension type: secondary to endocrine disorders Qualified Code(s): I15.2 - Hypertension secondary to endocrine disorders Is this a current diagnosis for this admission?: Yes - Time Time with patient: 15-25 minutes
[2019-12-20] MEDS: PROMETHAZINE HCL INJ 25 MG/1 ML VIAL IV PRN ×2 (04:28→10:26)
[2019-12-20] MEDS: PANTOPRAZOLE SODIUM 40 MG TABLET.DR PO SCH (05:53)
[2019-12-20] MEDS: HEPARIN SOD (PORCINE) 5,000 UNIT/ML 1 ML VIAL SUBCUT SCH ×3 (05:53→21:56)
[2019-12-20] MEDS: OXYCODONE-ACETAMINOPHEN 5-325 MG TABLET PO PRN ×4 (05:59→21:57)
[2019-12-20 07:43] LABS: HEMATOCRIT 30.9 % (36.0-47.0); HEMOGLOBIN 10.1 g/dL (12.0-15.5); MEAN CORPUSCULAR HEMOGLOBIN 28.3 pg (27.0-33.4); MEAN CORPUSCULAR HGB CONC 32.8 g/dL (32.0-36.0); MEAN CORPUSCULAR VOLUME 86 fl (80-97); PLATELET COUNT 267 10^3/uL (150-450); RED BLOOD COUNT 3.57 10^6/uL (3.72-5.28); RED CELL DISTRIBUTION WIDTH 14.7 % (11.5-14.0)
[2019-12-20 07:50] LABS: WHITE BLOOD COUNT 19.2 10^3/uL (4.0-10.5)
[2019-12-20 08:02] LABS: BLOOD UREA NITROGEN 26 mg/dL (7-20); CALCIUM 9.6 mg/dL (8.4-10.2); CARBON DIOXIDE 26 mmol/L (22-30); GLUCOSE 209 mg/dL (75-110); POTASSIUM 4.9 mmol/L (3.6-5.0)
[2019-12-20 08:04] LABS: ANION GAP 15 (5-19); CHLORIDE 92 mmol/L (98-107)
[2019-12-20] MEDS: INSULIN LISPRO 100 UNIT/ML 3 ML VIAL SUBCUT SCH ×7 (08:32→23:32)
--- NOTE | 2019-12-20 08:42 | PDOC PROGRESS REPORT ---
Subjective Progress Note for:: 12/20/19 Subjective:: mild pains left BKA stump Reason For Visit: OSTEOMYELITIS LEFT TOES Physical Exam Vital Signs: Temp Pulse Resp BP Pulse Ox 98.5 F 91 17 118/52 L 94 12/19/19 23:00 12/19/19 23:00 12/19/19 23:00 12/19/19 23:00 12/19/19 23:00 Intake & Output 12/19/19 12/20/19 12/21/19 06:59 06:59 06:59 Intake Total 440 1950 Output Total 2076 Balance 440 -126 Weight 91.4 kg 91.5 kg Exam: T 98.5, Stump appears not swollen and dressing is dry.WBC elevated.BS elevated Results Laboratory Results: 12/20/19 06:20 12/20/19 06:20 12/19/19 12/20/19 12/20/19 11:44 06:20 06:20 WBC 19.2 H D RBC 3.57 L Hgb 10.1 L Hct 30.9 L MCV 86 MCH 28.3 MCHC 32.8 RDW 14.7 H Plt Count 267 Sodium 135.2 L 132.9 L Potassium 4.1 4.9 Chloride 95 L 92 L Carbon Dioxide 29 26 Anion Gap 11 15 BUN 19 D 26 H Creatinine 5.31 H 6.47 H Est GFR ( Amer) 10 L 8 L Glucose 137 H 209 H Calcium 9.3 9.6 Magnesium 1.9 Impressions: Foot X-Ray 12/17/19 15:46 IMPRESSION: 1. Decreased mineralization and indistinct cortex involving the 3rd through 5th phalanges suggestive of osteomyelitis. Additional indistinct julio c at the distal 1st and 2nd digits also moderately suspicious for osteomyelitis. MRI could be considered for further characterization. 2. No fracture. Extremity Arterial Study 12/18/19 00:00 IMPRESSION: Probable distal SFA occlusion. Monophasic waveforms in the popliteal and visualized infrapopliteal vessels. Peroneal artery appears occluded. Recommend conventional angiography for further assessment. Alternatively CTA could be performed for planning of intervention. Assessment & Plan - Diagnosis (1) osteomyelitis left toes Is this a current diagnosis for this admission?: Yes (2) Diabetic peripheral neuropathy associated with type 2 diabetes mellitus Is this a current diagnosis for this admission?: Yes (3) Diabetic peripheral vascular disease Is this a current diagnosis for this admission?: Yes (4) ESRD on hemodialysis Is this a current diagnosis for this admission?: Yes - Time Critical Time spent with patient: 15-24 minutes Anticipated Discharge Disposition: Snf Facility Anticipated Discharge Timeframe: 1 week - Inpatient Certification Medical Necessity: Need for Pain Control, Need for IV Antibiotics - Plan Summary Plan Summary: POD #1 post left BKA for osteomyelitis 98.5 temp WBC 19.2 Plans: Continue antibiotic Better control of BS Will change dressings and remove drains tomorrow.
[2019-12-20] MEDS: DOCUSATE SODIUM 100 MG CAPSULE PO SCH ×2 (11:37→17:43)
--- NOTE | 2019-12-20 15:53 | PDOC PROGRESS REPORT ---
Subjective Progress Note for:: 12/20/19 Subjective:: No adverse events overnight. No fevers. She has been eating a little bit. Her pain has been fairly well controlled. Reason For Visit: OSTEOMYELITIS LEFT TOES Physical Exam Vital Signs: Temp Pulse Resp BP Pulse Ox 98.5 F 91 17 118/52 L 94 12/20/19 09:53 12/19/19 23:00 12/19/19 23:00 12/19/19 23:00 12/19/19 23:00 Intake & Output 12/19/19 12/20/19 12/21/19 06:59 06:59 06:59 Intake Total 440 1950 Output Total 2076 Balance 440 -126 Weight 91.4 kg 91.5 kg General appearance: PRESENT: no acute distress, cooperative, hard of hearing, morbidly obese Respiratory exam: PRESENT: clear to auscultation charity, symmetrical, unlabored. ABSENT: accessory muscle use, chest wall tenderness, crackles, prolonged expiratory phas, rhonchi, tachypnea, wheezes Cardiovascular exam: PRESENT: RRR, +S1, +S2 GI/Abdominal exam: PRESENT: normal bowel sounds, soft. ABSENT: distended, guarding, rebound, tenderness Extremities exam: PRESENT: other - She has had a left below the knee amputation and the stump is covered in a splint and wrapped with a heavy bandage. ABSENT: clubbing, pedal edema Neurological exam: PRESENT: alert, awake, oriented to person, oriented to place, oriented to situation Psychiatric exam: PRESENT: anxious Skin exam: PRESENT: dry, warm Results Laboratory Results: 12/20/19 06:20 12/20/19 06:20 12/20/19 12/20/19 06:20 06:20 WBC 19.2 H D RBC 3.57 L Hgb 10.1 L Hct 30.9 L MCV 86 MCH 28.3 MCHC 32.8 RDW 14.7 H Plt Count 267 Sodium 132.9 L Potassium 4.9 Chloride 92 L Carbon Dioxide 26 Anion Gap 15 BUN 26 H Creatinine 6.47 H Est GFR ( Amer) 8 L Glucose 209 H Calcium 9.6 Magnesium 1.9 12/18/19 00:50 Toe - Left Big Toe Gram Stain - Final Impressions: Foot X-Ray 12/17/19 15:46 IMPRESSION: 1. Decreased mineralization and indistinct cortex involving the 3rd through 5th phalanges suggestive of osteomyelitis. Additional indistinct julio c at the distal 1st and 2nd digits also moderately suspicious for osteomyelitis. MRI could be considered for further characterization. 2. No fracture. Extremity Arterial Study 12/18/19 00:00 IMPRESSION: Probable distal SFA occlusion. Monophasic waveforms in the popliteal and visualized infrapopliteal vessels. Peroneal artery appears occluded. Recommend conventional angiography for further assessment. Alternatively CTA could be performed for planning of intervention. 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 use: with terminal gauger supervisor use Diabetes mellitus complication status: with neurologic complications Diabetes mellitus complication detail: with unspecified neuropathy Qualified Code(s): E11.40 - Type 2 diabetes mellitus with diabetic neuropathy, unspecified; Z79.4 - MCC (current) use of insulin Is this a current diagnosis for this admission?: Yes (3) Diabetic peripheral neuropathy associated with type 2 diabetes mellitus Is this a current diagnosis for this admission?: Yes (4) Diabetic peripheral vascular disease Is this a current diagnosis for this admission?: Yes (5) ESRD on hemodialysis Is this a current diagnosis for this admission?: Yes (6) Obesity Qualifiers: Obesity type: due to excess calories Obesity classification: adult class 2 (BMI 35 - 39.9) Serious obesity comorbidity presence: with serious comorbidity Body mass index: BMI 36.0-36.9 Qualified Code(s): E66.01 - Morbid (severe) obesity due to excess calories; Z68.36 - Body mass index [BMI] 36.0-36.9, adult Is this a current diagnosis for this admission?: Yes (7) Anemia in chronic kidney disease Qualifiers: Chronic kidney disease stage: on chronic dialysis Qualified Code(s): N18.6 - End stage renal disease; D63.1 - Anemia in chronic kidney disease; Z99.2 - Dependence on renal dialysis Is this a current diagnosis for this admission?: Yes (8) Diabetic gastroparesis Is this a current diagnosis for this admission?: Yes - Plan Summary Summary: Continue antibiotics and current therapy for her diabetes. Continue pain control. The surgeons are going to come take down her dressing tomorrow to assess her wound. Continue to follow cultures. Continue hemodialysis as scheduled. - Time Time Spent with patient: 15-24 minutes Anticipated Discharge Disposition: Undetermined Anticipated Discharge Timeframe: Undetermined
--- NOTE | 2019-12-20 16:25 | PDOC PROGRESS REPORT ---
Subjective Progress Note for:: 12/20/19 Reason For Visit: OSTEOMYELITIS LEFT TOES Patient transferring from supine to upright position but has not been out of bed; await PT evaluation. Pain adequately controlled. Physical Exam Vital Signs: Temp Pulse Resp BP Pulse Ox 98.5 F 95 16 154/62 H 100 12/20/19 09:53 12/20/19 07:40 12/20/19 07:40 12/20/19 07:40 12/20/19 07:40 Intake & Output 12/19/19 12/20/19 12/21/19 06:59 06:59 06:59 Intake Total 440 1950 Output Total 2076 Balance 440 -126 Weight 91.4 kg 91.5 kg 91.5 kg General appearance: PRESENT: no acute distress Musculoskeletal exam: PRESENT: other - Stump wrapped; dressing dry and intact Results Laboratory Results: 12/20/19 06:20 12/20/19 06:20 12/20/19 12/20/19 06:20 06:20 WBC 19.2 H D RBC 3.57 L Hgb 10.1 L Hct 30.9 L MCV 86 MCH 28.3 MCHC 32.8 RDW 14.7 H Plt Count 267 Sodium 132.9 L Potassium 4.9 Chloride 92 L Carbon Dioxide 26 Anion Gap 15 BUN 26 H Creatinine 6.47 H Est GFR ( Amer) 8 L Glucose 209 H Calcium 9.6 Magnesium 1.9 12/18/19 00:50 Toe - Left Big Toe Gram Stain - Final Impressions: Foot X-Ray 12/17/19 15:46 IMPRESSION: 1. Decreased mineralization and indistinct cortex involving the 3rd through 5th phalanges suggestive of osteomyelitis. Additional indistinct julio c at the distal 1st and 2nd digits also moderately suspicious for osteomyelitis. MRI could be considered for further characterization. 2. No fracture. Extremity Arterial Study 12/18/19 00:00 IMPRESSION: Probable distal SFA occlusion. Monophasic waveforms in the popliteal and visualized infrapopliteal vessels. Peroneal artery appears occluded. Recommend conventional angiography for further assessment. Alternatively CTA could be performed for planning of intervention. Assessment & Plan - Diagnosis (1) Osteomyelitis of toe of left foot Is this a current diagnosis for this admission?: Yes Plan: Impression: Patient is 1 day status post left below the knee amputation, doing well, no complications thus far. Recommendations: 1. Continue IV vancomycin 2. Await physical therapy evaluation and instructions. 3. Dressing will come down tomorrow, with likely removal of drain. 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
[2019-12-20] MEDS: QUETIAPINE FUMARATE 25 MG TABLET PO SCH (21:56)
[2019-12-20] MEDS: MELATONIN 5 MG TABLET PO SCH (21:56)
[2019-12-20] MEDS: ATORVASTATIN CALCIUM 20 MG TABLET PO SCH (21:57)
[2019-12-20] MEDS: CIPROFLOXACIN 400 MG/D5W RTU 400 MG/200 ML RTUPB IV SCH (21:58)
[2019-12-21] MEDS ORDERED: EPOETIN ALFA-EPBX 2,000 UNIT, EPOETIN ALFA-EPBX 3,000 UNIT in SYRINGE, DISPOSABLE, 1 EACH IV PRN (05:00)
[2019-12-21] MEDS ORDERED: NORMAL SALINE 1000 ML 1,000 ML IV PRN (05:00)
[2019-12-21] MEDS: PANTOPRAZOLE SODIUM 40 MG TABLET.DR PO SCH (05:35)
[2019-12-21] MEDS: HEPARIN SOD (PORCINE) 5,000 UNIT/ML 1 ML VIAL SUBCUT SCH ×3 (05:35→21:24)
[2019-12-21] MEDS: OXYCODONE-ACETAMINOPHEN 5-325 MG TABLET PO PRN ×4 (05:35→19:45)
[2019-12-21 06:12] LABS: ABSOLUTE BASOPHILS # (AUTO) 0.1 10^3/uL (0.0-0.2); ABSOLUTE EOSINOPHILS # (AUTO) 0.3 10^3/uL (0.0-0.6); ABSOLUTE LYMPHOCYTES (AUTO) 2.7 10^3/uL (0.5-4.7); ABSOLUTE MONOCYTES (AUTO) 1.3 10^3/uL (0.1-1.4); ABSOLUTE NEUT (AUTO) 9.6 10^3/uL (1.7-8.2); HEMATOCRIT 25.5 % (36.0-47.0); HEMOGLOBIN 8.5 g/dL (12.0-15.5); LYMPHOCYTES % (AUTO) 19.1 % (13-45); MEAN CORPUSCULAR HEMOGLOBIN 28.7 pg (27.0-33.4); MEAN CORPUSCULAR HGB CONC 33.5 g/dL (32.0-36.0); MEAN CORPUSCULAR VOLUME 86 fl (80-97); MONOCYTES % (AUTO) 9.3 % (3-13); PLATELET COUNT 230 10^3/uL (150-450); RED BLOOD COUNT 2.97 10^6/uL (3.72-5.28); RED CELL DISTRIBUTION WIDTH 14.7 % (11.5-14.0); SEGMENTED NEUTROPHILS % (AUTO) 68.6 % (42-78); TOTAL CELLS COUNTED % (AUTO) 100 %
[2019-12-21 06:32] LABS: ANION GAP 14 (5-19); BLOOD UREA NITROGEN 39 mg/dL (7-20); CALCIUM 9.3 mg/dL (8.4-10.2); CARBON DIOXIDE 25 mmol/L (22-30); CHLORIDE 92 mmol/L (98-107); GLUCOSE 173 mg/dL (75-110); POTASSIUM 4.9 mmol/L (3.6-5.0)
[2019-12-21 06:36] LABS: VANCOMYCIN,TROUGH 17.7 ug/mL (5.0-20.0)
[2019-12-21] MEDS: HYDROXYZINE PAMOATE 25 MG CAPSULE PO PRN (09:45)
[2019-12-21] MEDS ORDERED: ENOXAPARIN SODIUM INJ 40 MG/0.4 ML DISP.SYRIN SUBCUT SCH (10:00)
[2019-12-21] MEDS: INSULIN LISPRO 100 UNIT/ML 3 ML VIAL SUBCUT SCH ×7 (10:01→21:38)
[2019-12-21] MEDS: DOCUSATE SODIUM 100 MG CAPSULE PO SCH ×2 (10:01→17:58)
--- NOTE | 2019-12-21 14:05 | PDOC PROGRESS REPORT ---
Subjective Progress Note for:: 12/21/19 Subjective:: I am seeing the patient this morning while on dialysis. She underwent successful and uneventful left BKA on 12/19/2019. She complains of pain over the left stump about 9/10. Other than that she does not have any other complaints. She is tolerating dialysis well this morning. Reason For Visit: OSTEOMYELITIS LEFT TOES Physical Exam Vital Signs: Temp Pulse Resp BP Pulse Ox 98.3 F 88 16 101/46 L 92 12/21/19 08:33 12/21/19 05:07 12/21/19 05:07 12/21/19 05:07 12/21/19 05:07 Intake & Output 12/20/19 12/21/19 12/22/19 06:59 06:59 06:59 Intake Total 1950 620 Output Total 2076 0 Balance -126 620 Weight 91.5 kg 86.3 kg Vitals during dialysis: Blood pressure 125/65, heart rate of 88, blood flow rate of 450 mL/min and dialysate flow rate of 800 mL/min. Exam: General appearance: PRESENT: no acute distress, cooperative, well-developed, well-nourished Head exam: PRESENT: atraumatic, normocephalic Eye exam: PRESENT: conjunctiva slightly pale, PERRLA. ABSENT: scleral icterus Neck exam: ABSENT: JVD Respiratory exam: PRESENT: Normal breath sounds. ABSENT: crackles, rales, rhonchi, unlabored, wheezes Cardiovascular exam: PRESENT: Regular rate rhythm -+S1, +S2. ABSENT: diastolic murmur, systolic murmur GI/Abdominal exam: PRESENT: normal bowel sounds, soft. ABSENT: guarding, mass, tenderness Extremities exam: ABSENT: No edema; left BKA with surgical site wrapped with dressing and Bryan wrap. Neurological exam: PRESENT: alert, awake, oriented to person, place and time. Skin exam: PRESENT: dry, warm, Cardiovascular exam: PRESENT: RRR, +S1, +S2 GI/Abdominal exam: PRESENT: soft. ABSENT: firm, guarding, tenderness Results Laboratory Results: 12/21/19 05:47 12/21/19 05:47 12/21/19 12/21/19 05:47 05:47 WBC 14.0 H RBC 2.97 L Hgb 8.5 L Hct 25.5 L MCV 86 MCH 28.7 MCHC 33.5 RDW 14.7 H Plt Count 230 Seg Neutrophils % 68.6 Sodium 131.0 L Potassium 4.9 Chloride 92 L Carbon Dioxide 25 Anion Gap 14 BUN 39 H Creatinine 8.15 H Est GFR ( Amer) 6 L Glucose 173 H Calcium 9.3 12/18/19 00:50 Toe - Left Big Toe Gram Stain - Final Impressions: Foot X-Ray 12/17/19 15:46 IMPRESSION: 1. Decreased mineralization and indistinct cortex involving the 3rd through 5th phalanges suggestive of osteomyelitis. Additional indistinct julio c at the distal 1st and 2nd digits also moderately suspicious for osteomyelitis. MRI could be considered for further characterization. 2. No fracture. Extremity Arterial Study 12/18/19 00:00 IMPRESSION: Probable distal SFA occlusion. Monophasic waveforms in the popliteal and visualized infrapopliteal vessels. Peroneal artery appears occluded. Recommend conventional angiography for further assessment. Alternatively CTA could be performed for planning of intervention. Assessment & Plan - Diagnosis (1) ESRD on hemodialysis Is this a current diagnosis for this admission?: Yes Plan: We will do dialysis today for 3 hours, using the patient's AV fistula, with 2 potassium bath, blood flow rate of 450 mL per minute, dialysate flow rate of 800 mL per minute, ultrafiltration 0.5 L as tolerated, no heparin and Procrit with 5000 units during dialysis intravenously. Currently being monitored during dialysis. (2) osteomyelitis left toes Is this a current diagnosis for this admission?: Yes Plan: On IV ciprofloxacin and vancomycin. Status post left BKA, 12/19/2019. (3) Diabetic peripheral vascular disease Is this a current diagnosis for this admission?: Yes (4) Anemia in chronic kidney disease Qualifiers: Chronic kidney disease stage: on chronic dialysis Qualified Code(s): N18.6 - End stage renal disease; D63.1 - Anemia in chronic kidney disease; Z99.2 - Dependence on renal dialysis Is this a current diagnosis for this admission?: Yes Plan: Retacrit on dialysis as needed. Hemoglobin drop likely due to blood loss from surgery. (5) Diabetes mellitus type 2 in obese Is this a current diagnosis for this admission?: Yes (6) Hypertension Qualifiers: Hypertension type: secondary to endocrine disorders Qualified Code(s): I15 .2 - Hypertension secondary to endocrine disorders Is this a current diagnosis for this admission?: Yes - Time Time with patient: 15-25 minutes
--- NOTE | 2019-12-21 14:35 | PDOC PROGRESS REPORT ---
Subjective Progress Note for:: 12/21/19 Subjective:: Mild pains along the BKA stump left side Reason For Visit: OSTEOMYELITIS LEFT TOES Physical Exam Vital Signs: Temp Pulse Resp BP Pulse Ox 97.4 F 100 19 101/59 L 97 12/21/19 11:25 12/21/19 11:25 12/21/19 11:25 12/21/19 11:25 12/21/19 11:25 Intake & Output 12/20/19 12/21/19 12/22/19 06:59 06:59 06:59 Intake Total 1950 620 Output Total 2076 0 Balance -126 620 Weight 91.5 kg 86.3 kg Exam: Dressings changed and the 2 drains were removed. Stump looks good and minimal bloody drainage from the drain sites. A piece of Xeroform placed over the incision and stump closed with 4 x 4 ABD and Kerlix the posterior splint put back and wrapped with 6 inch Bryan. Results Laboratory Results: 12/21/19 05:47 12/21/19 05:47 12/21/19 12/21/19 05:47 05:47 WBC 14.0 H RBC 2.97 L Hgb 8.5 L Hct 25.5 L MCV 86 MCH 28.7 MCHC 33.5 RDW 14.7 H Plt Count 230 Seg Neutrophils % 68.6 Sodium 131.0 L Potassium 4.9 Chloride 92 L Carbon Dioxide 25 Anion Gap 14 BUN 39 H Creatinine 8.15 H Est GFR ( Amer) 6 L Glucose 173 H Calcium 9.3 12/17/19 18:19 Blood Blood Culture (PCR) - Final 12/17/19 18:19 Blood Blood Culture - Final Micrococcus Species 12/18/19 00:50 Toe - Left Big Toe Gram Stain - Final Impressions: Foot X-Ray 12/17/19 15:46 IMPRESSION: 1. Decreased mineralization and indistinct cortex involving the 3rd through 5th phalanges suggestive of osteomyelitis. Additional indistinct julio c at the distal 1st and 2nd digits also moderately suspicious for osteomyelitis. MRI could be considered for further characterization. 2. No fracture. Extremity Arterial Study 12/18/19 00:00 IMPRESSION: Probable distal SFA occlusion. Monophasic waveforms in the popli teal and visualized infrapopliteal vessels. Peroneal artery appears occluded. Recommend conventional angiography for further assessment. Alternatively CTA could be performed for planning of intervention. Assessment & Plan - Diagnosis (1) osteomyelitis left toes Is this a current diagnosis for this admission?: Yes (2) Diabetic peripheral neuropathy associated with type 2 diabetes mellitus Is this a current diagnosis for this admission?: Yes (3) Diabetic peripheral vascular disease Is this a current diagnosis for this admission?: Yes (4) ESRD on hemodialysis Is this a current diagnosis for this admission?: Yes - Time Critical Time spent with patient: 15-24 minutes Anticipated Discharge Disposition: Home, Self Care Anticipated Discharge Timeframe: within 72 hours - Inpatient Certification Medical Necessity: Need for IV Antibiotics - Plan Summary Plan Summary: Postop day 2 post left below-knee amputation for osteomyelitis of the left toes and PVD. The stump looks good and the drains were then removed. It was rewrapped and posterior splint reapplied. Her white count is trending down. Give IV antibiotics for 48 to 72 hours We will sign off.
--- NOTE | 2019-12-21 16:47 | PDOC PROGRESS REPORT ---
Subjective Progress Note for:: 12/21/19 Subjective:: Patient doing okay today but complains of pain at the site of her stump. States pain was about 10 out of 10. Otherwise has no complaints. Was disappointed when I raised the issue of her needing SNF as recommended by physical therapy. She is hoping that she will be able to go home with home health instead and states that she would try to perform better on next PT evaluation. Reason For Visit: OSTEOMYELITIS LEFT TOES Physical Exam Vital Signs: Temp Pulse Resp BP Pulse Ox 97.8 F 91 17 111/43 L 94 12/21/19 15:31 12/21/19 15:31 12/21/19 15:31 12/21/19 15:31 12/21/19 15:31 Intake & Output 12/20/19 12/21/19 12/22/19 06:59 06:59 06:59 Intake Total 1950 620 240 Output Total 2076 0 900 Balance -126 620 -660 Weight 91.5 kg 86.3 kg General appearance: PRESENT: no acute distress, cooperative Neck exam: ABSENT: JVD Respiratory exam: PRESENT: symmetrical, unlabored. ABSENT: tachypnea, wheezes GI/Abdominal exam: PRESENT: soft. ABSENT: rebound, rigid, tenderness Extremities exam: PRESENT: other - BKA stump left Neurological exam: PRESENT: alert, awake, oriented to person, oriented to place, oriented to time, oriented to situation Results Laboratory Results: 12/21/19 05:47 12/21/19 05:47 12/21/19 12/21/19 05:47 05:47 WBC 14.0 H RBC 2.97 L Hgb 8.5 L Hct 25.5 L MCV 86 MCH 28.7 MCHC 33.5 RDW 14.7 H Plt Count 230 Seg Neutrophils % 68.6 Sodium 131.0 L Potassium 4.9 Chloride 92 L Carbon Dioxide 25 Anion Gap 14 BUN 39 H Creatinine 8.15 H Est GFR ( Amer) 6 L Glucose 173 H Calcium 9.3 12/17/19 18:19 Blood Blood Culture (PCR) - Final 12/17/19 18:19 Blood Blood Culture - Final Micrococcus Species 12/18/19 00:50 Toe - Left Big Toe Gram Stain - Final Impressions: Foot X-Ray 12/17/19 15:46 IMPRESSION: 1. Decreased mineralization and indistinct cortex involving the 3rd through 5th phalanges suggestive of osteomyelitis. Additional indistinct t ufts at the distal 1st and 2nd digits also moderately suspicious for osteomyelitis. MRI could be considered for further characterization. 2. No fracture. Extremity Arterial Study 12/18/19 00:00 IMPRESSION: Probable distal SFA occlusion. Monophasic waveforms in the p opliteal and visualized infrapopliteal vessels. Peroneal artery appears occluded. Recommend conventional angiography for further assessment. Alternatively CTA could be performed for planning of intervention. 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 Surgery recommending continuation of IV antibiotics for another 48 hours including today. Surgery has also cleared patient for discharge from their perspective. Pain control with nonnarcotic pain modalities as well as Percocet for breakthrough. Physical therapy. Discussed with criminal justice social worker about planning for SNF. We will see if any improvement in patient's physical status can permit for home health. Leukocytosis is trending down. We will repeat a CBC in again morning. She received a dialysis session today. Blood glucose is not adequately controlled but hopefully this will improve with resolution of infection. - Time Time Spent with patient: 15-24 minutes Anticipated Discharge Disposition: Home, Self Care Anticipated Discharge Timeframe: within 48 hours
[2019-12-21] MEDS: VANCOMYCIN HCL 750 MG in DEXTROSE 5%-WATER 250 ML IV SCH (17:53)
[2019-12-21] MEDS: CIPROFLOXACIN 400 MG/D5W RTU 400 MG/200 ML RTUPB IV SCH (21:24)
[2019-12-21] MEDS: MELATONIN 5 MG TABLET PO SCH (21:24)
[2019-12-21] MEDS: QUETIAPINE FUMARATE 25 MG TABLET PO SCH (21:24)
[2019-12-21] MEDS: ATORVASTATIN CALCIUM 20 MG TABLET PO SCH (21:24)
[2019-12-22] MEDS: HEPARIN SOD (PORCINE) 5,000 UNIT/ML 1 ML VIAL SUBCUT SCH ×3 (05:58→21:11)
[2019-12-22] MEDS: PANTOPRAZOLE SODIUM 40 MG TABLET.DR PO SCH (05:58)
[2019-12-22] MEDS: OXYCODONE-ACETAMINOPHEN 5-325 MG TABLET PO PRN ×3 (05:58→19:36)
[2019-12-22 06:28] LABS: ABSOLUTE BASOPHILS # (AUTO) 0.1 10^3/uL (0.0-0.2); ABSOLUTE EOSINOPHILS # (AUTO) 0.5 10^3/uL (0.0-0.6); ABSOLUTE LYMPHOCYTES (AUTO) 2.7 10^3/uL (0.5-4.7); ABSOLUTE MONOCYTES (AUTO) 1.2 10^3/uL (0.1-1.4); BASOPHILS % (AUTO) 0.7 % (0-2); HEMATOCRIT 24.7 % (36.0-47.0); HEMOGLOBIN 8.4 g/dL (12.0-15.5); MEAN CORPUSCULAR HEMOGLOBIN 29.1 pg (27.0-33.4); MEAN CORPUSCULAR HGB CONC 33.8 g/dL (32.0-36.0); MEAN CORPUSCULAR VOLUME 86 fl (80-97); MONOCYTES % (AUTO) 11.2 % (3-13); PLATELET COUNT 196 10^3/uL (150-450); RED BLOOD COUNT 2.87 10^6/uL (3.72-5.28); RED CELL DISTRIBUTION WIDTH 14.7 % (11.5-14.0); SEGMENTED NEUTROPHILS % (AUTO) 57.1 % (42-78); TOTAL CELLS COUNTED % (AUTO) 100 %; WHITE BLOOD COUNT 10.5 10^3/uL (4.0-10.5)
[2019-12-22] MEDS: DOCUSATE SODIUM 100 MG CAPSULE PO SCH ×2 (09:12→17:20)
[2019-12-22] MEDS: INSULIN LISPRO 100 UNIT/ML 3 ML VIAL SUBCUT SCH ×7 (09:12→21:11)
--- NOTE | 2019-12-22 14:55 | PDOC PROGRESS REPORT ---
Subjective Progress Note for:: 12/22/19 Subjective:: Less pains along the left BKA stump. White count also came down to normal. Reason For Visit: OSTEOMYELITIS LEFT TOES Physical Exam Vital Signs: Temp Pulse Resp BP Pulse Ox 98.5 F 81 18 109/50 L 100 12/22/19 11:56 12/22/19 11:56 12/22/19 11:56 12/22/19 11:56 12/22/19 11:56 Intake & Output 12/21/19 12/22/19 12/23/19 06:59 06:59 06:59 Intake Total 620 990 480 Output Total 0 900 Balance 620 90 480 Weight 86.3 kg 87.4 kg Exam: Left BKA stump looks good. The incision looks clean and dry minimal swelling noted. Was then redressed with ABD and Kerlix and a posterior splint placed back reinforced with Bryan bandage. Results Laboratory Results: 12/22/19 05:42 12/21/19 05:47 12/22/19 05:42 WBC 10.5 RBC 2.87 L Hgb 8.4 L Hct 24.7 L MCV 86 MCH 29.1 MCHC 33.8 RDW 14.7 H Plt Count 196 Seg Neutrophils % 57.1 12/18/19 00:50 Toe - Left Big Toe Gram Stain - Final 12/17/19 18:19 Blood Blood Culture (PCR) - Final 12/17/19 18:19 Blood Blood Culture - Final Micrococcus Species Impressions: Foot X-Ray 12/17/19 15:46 IMPRESSION: 1. Decreased mineralization and indistinct cortex involving the 3rd through 5th phalanges suggestive of osteomyelitis. Additional indistinct julio c at the distal 1st and 2nd digits also moderately suspicious for osteomyelitis. MRI could be considered for further characterization. 2. No fracture. Extremity Arterial Study 12/18/19 00:00 IMPRESSION: Probable distal SFA occlusion. Monophasic waveforms in the popliteal and visualized infrapopliteal vessels. Peroneal artery appears occluded. Recommend conventional angiography for further assessment. Alternatively CTA could be performed for planning of intervention. Assessment & Plan - Diagnosis (1) osteomyelitis left toes Is this a current diagnosis for this admission?: Yes (2) Diabetic peripheral neuropathy associated with type 2 diabetes mellitus Is this a current diagnosis for this admission?: Yes (3) Diabetic peripheral vascular disease Is this a current diagnosis for this admission?: Yes (4) ESRD on hemodialysis Is this a current diagnosis for this admission?: Yes - Time Critical Time spent with patient: 15-24 minutes Anticipated Discharge Disposition: Detention Facility Anticipated Discharge Timeframe: within 48 hours - Inpatient Certification Medical Necessity: Need for IV Antibiotics - Plan Summary Plan Summary: 59-year-old female diabetic on hemodialysis postop day #4 post left below-knee amputation. Amputation stump appears to be healing very well. Her white count is normal. She can be continued on IV antibiotics for the next 24 to 48 hours and plan on discharge to a skilled care facility. She can be followed in her surgical clinic in 3 to 4 weeks for removal of the sumeet. Posterior splint should be placed just to keep the knee straight. She may be a candidate for prosthesis though this is quite unlikely because she needs a lot of upper arm strength to ambulate. At any rate we will sign off and will follow her in the in the clinic. Call for any other questions.
--- NOTE | 2019-12-22 16:55 | PDOC PROGRESS REPORT ---
Subjective Progress Note for:: 12/22/19 Subjective:: Patient still complains of occasional pain at the site of her stump. Otherwise she feels fine in terms of her breathing and eating. Reason For Visit: OSTEOMYELITIS LEFT TOES Physical Exam Vital Signs: Temp Pulse Resp BP Pulse Ox 98.3 F 95 18 110/65 99 12/22/19 16:00 12/22/19 16:00 12/22/19 16:00 12/22/19 16:00 12/22/19 16:00 Intake & Output 12/21/19 12/22/19 12/23/19 06:59 06:59 06:59 Intake Total 620 990 480 Output Total 0 900 Balance 620 90 480 Weight 86.3 kg 87.4 kg General appearance: PRESENT: no acute distress, cooperative Neck exam: ABSENT: JVD Respiratory exam: PRESENT: clear to auscultation [facility], unlabored. ABSENT: wheezes Cardiovascular exam: PRESENT: +S1, +S2. ABSENT: tachycardia Neurological exam: PRESENT: alert, awake, oriented to person, oriented to place, oriented to time Psychiatric exam: ABSENT: agitated, anxious Results Laboratory Results: 12/22/19 05:42 12/21/19 05:47 12/22/19 05:42 WBC 10.5 RBC 2.87 L Hgb 8.4 L Hct 24.7 L MCV 86 MCH 29.1 MCHC 33.8 RDW 14.7 H Plt Count 196 Seg Neutrophils % 57.1 12/18/19 00:50 Toe - Left Big Toe Gram Stain - Final 12/17/19 18:19 Blood Blood Culture (PCR) - Final 12/17/19 18:19 Blood Blood Culture - Final Micrococcus Species Impressions: Foot X-Ray 12/17/19 15:46 IMPRESSION: 1. Decreased mineralization and indistinct cortex involving the 3rd through 5th phalanges suggestive of osteomyelitis. Additional indistinct julio c at the distal 1st and 2nd digits also moderately suspicious for osteomyelitis. MRI could be considered for further characterization. 2. No fracture. Extremity Arterial Study 12/18/19 00:00 IMPRESSION: Probable distal SFA occlusion. Monophasic waveforms in the popliteal and visualized infrapopliteal vessels. Peroneal artery appears occluded. Recommend conventional angiography for further assessment. Alternatively CTA could be performed for planning of intervention. Assessment and Plan - Diagnosis (1) Osteomyelitis of toe of left foot Is this a current diagnosis for this admission?: Yes (2) Diabetic peripheral vascular disease Is this a current diagnosis for this admission?: Yes (3) Diabetes mellitus Qualifiers: Diabetes mellitus type: type 2 Diabetes mellitus fci insulin use: with remote computer terminal operator use Diabetes mellitus complication status: with neurologic complications Diabetes mellitus complication detail: with unspecified neuropathy Qualified Code(s): E11.40 - Type 2 diabetes mellitus with diabetic neuropathy, unspecified; Z79.4 - director long term care (current) use of insulin Is this a current diagnosis for this admission?: Yes (4) ESRD on hemodialysis Is this a current diagnosis for this admission?: Yes (5) Hypertension Qualifiers: Hypertension type: secondary to endocrine disorders Qualified Code(s): I15.2 - Hypertension secondary to endocrine disorders Is this a current diagnosis for this admission?: Yes (6) Subclinical hypothyroidism Is this a current diagnosis for this admission?: Yes - Plan Summary Summary: Source control has been achieved from BKA. We will continue antibiotics for 1 more day and then discharge. We are working on getting patient placement at SNF. She will continue to work with physical therapy. Surgery is signing off and has cleared patient for discharge. - Time Time Spent with patient: 15-24 minutes Anticipated Discharge Disposition: Detention Facility Anticipated Discharge Timeframe: within 36 hours
[2019-12-22] MEDS: CIPROFLOXACIN 400 MG/D5W RTU 400 MG/200 ML RTUPB IV SCH (21:10)
[2019-12-22] MEDS: QUETIAPINE FUMARATE 25 MG TABLET PO SCH (21:10)
[2019-12-22] MEDS: ATORVASTATIN CALCIUM 20 MG TABLET PO SCH (21:11)
[2019-12-22] MEDS: MELATONIN 5 MG TABLET PO SCH (21:11)
[2019-12-23] MEDS: OXYCODONE-ACETAMINOPHEN 5-325 MG TABLET PO PRN ×4 (01:38→20:38)
[2019-12-23] MEDS: HEPARIN SOD (PORCINE) 5,000 UNIT/ML 1 ML VIAL SUBCUT SCH ×3 (06:48→22:39)
[2019-12-23] MEDS: PANTOPRAZOLE SODIUM 40 MG TABLET.DR PO SCH (06:48)
[2019-12-23] MEDS: INSULIN LISPRO 100 UNIT/ML 3 ML VIAL SUBCUT SCH ×7 (08:00→22:07)
[2019-12-23] MEDS: DOCUSATE SODIUM 100 MG CAPSULE PO SCH ×2 (09:22→17:13)
[2019-12-23] MEDS: CLOPIDOGREL BISULFATE 75 MG TABLET PO SCH (09:22)
[2019-12-23] MEDS ORDERED: ERGOCALCIFEROL (VITAMIN D2) 50000 UNIT (1.25 MG) CAPSULE PO SCH (10:00)
--- NOTE | 2019-12-23 13:43 | PDOC PROGRESS REPORT ---
Subjective Progress Note for:: 12/23/19 Subjective:: Patient is doing well. Still has some pain at the surgical stump. Awaiting placement at rehab. Reason For Visit: OSTEOMYELITIS LEFT TOES Physical Exam Vital Signs: Temp Pulse Resp BP Pulse Ox 98.3 F 81 18 111/47 L 98 12/23/19 11:34 12/23/19 11:34 12/23/19 11:34 12/23/19 11:34 12/23/19 11:34 Intake & Output 12/22/19 12/23/19 12/24/19 06:59 06:59 06:59 Intake Total 990 1140 Output Total 900 0 Balance 90 1140 Weight 87.4 kg 88.5 kg General appearance: PRESENT: no acute distress, cooperative Respiratory exam: PRESENT: unlabored Cardiovascular exam: ABSENT: tachycardia Neurological exam: PRESENT: alert, awake, oriented to person, oriented to place, oriented to time, oriented to situation Psychiatric exam: ABSENT: agitated, anxious Results Laboratory Results: 12/22/19 05:42 12/21/19 05:47 12/17/19 16:36 Blood Blood Culture - Final NO GROWTH IN 5 DAYS 12/18/19 00:50 Toe - Left Big Toe Gram Stain - Final Impressions: Foot X-Ray 12/17/19 15:46 IMPRESSION: 1. Decreased mineralization and indistinct cortex involving the 3rd through 5th phalanges suggestive of osteomyelitis. Additional indistinct julio c at the distal 1st and 2nd digits also moderately suspicious for osteomyelitis. MRI could be considered for further characterization. 2. No fracture. Extremity Arterial Study 12/18/19 00:00 IMPRESSION: Probable distal SFA occlusion. Monophasic waveforms in the popliteal and visualized infrapopliteal vessels. Peroneal artery appears occluded. Recommend conventional angiography for further assessment. Alternatively CTA could be performed for planning of intervention. Assessment and Plan - Diagnosis (1) Osteomyelitis of toe of left foot Is this a current diagnosis for this admission?: Yes Plan: Status post BKA performed for source control. She has completed IV antibiotic course today. She does not need any further antibiotics as the source has been controlled. Surgery has cleared her for discharge and will like to follow-up with her and the surgical clinic in 3 to 4 weeks for removal of sumeet. Pain control as needed. Local wound care as directed by surgery. Awaiting bed availability at [facility] likely tomorrow. (2) Diabetic peripheral vascular disease Is this a current diagnosis for this admission?: Yes Plan: (3) Diabetes mellitus Qualifiers: Diabetes mellitus type: type 2 Diabetes mellitus intermediate insulin use: with laborer marine terminal use Diabetes mellitus complication status: with neurologic complications Diabetes mellitus complication detail: with unspecified neuropathy Qualified Code(s): E11.40 - Type 2 diabetes mellitus with diabetic neuropathy, unspecified; Z79.4 - rodent exterminator (current) use of insulin Is this a current diagnosis for this admission?: Yes Plan: Hemoglobin A1c is 8.3. Continue home regimen of Humalog with meals (4) ESRD on hemodialysis Is this a current diagnosis for this admission?: Yes Plan: Nephrology following. She gets dialyzed every Tuesday and Saturdays when outpatient. 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 (6) Subclinical hypothyroidism Is this a current diagnosis for this admission?: Yes Plan: Outpatient follow-up for repeat TFTs in 4 to 6 weeks. - Time Time Spent with patient: Less than 15 minutes Anticipated Discharge Disposition: Prison Facility Anticipated Discharge Timeframe: when bed available
[2019-12-23] MEDS ORDERED: EPOETIN ALFA-EPBX 20,000 UNIT in SYRINGE, DISPOSABLE, 1 EACH IV PRN (17:38)
[2019-12-23] MEDS: MELATONIN 5 MG TABLET PO SCH (22:38)
[2019-12-23] MEDS: QUETIAPINE FUMARATE 25 MG TABLET PO SCH (22:38)
[2019-12-23] MEDS: ATORVASTATIN CALCIUM 20 MG TABLET PO SCH (22:39)
[2019-12-24] MEDS ORDERED: NORMAL SALINE 1000 ML 1,000 ML IV PRN (05:00)
[2019-12-24] MEDS: PANTOPRAZOLE SODIUM 40 MG TABLET.DR PO SCH (05:16)
[2019-12-24] MEDS: OXYCODONE-ACETAMINOPHEN 5-325 MG TABLET PO PRN ×2 (05:16→15:20)
[2019-12-24] MEDS: HEPARIN SOD (PORCINE) 5,000 UNIT/ML 1 ML VIAL SUBCUT SCH ×2 (05:16→15:21)
[2019-12-24 05:56] LABS: ABSOLUTE BASOPHILS # (AUTO) 0.1 10^3/uL (0.0-0.2); ABSOLUTE LYMPHOCYTES (AUTO) 2.8 10^3/uL (0.5-4.7); ABSOLUTE NEUT (AUTO) 5.7 10^3/uL (1.7-8.2); EOSINOPHILS % (AUTO) 9.3 % (0-6); HEMATOCRIT 25.2 % (36.0-47.0); HEMOGLOBIN 8.5 g/dL (12.0-15.5); LYMPHOCYTES % (AUTO) 26.2 % (13-45); MEAN CORPUSCULAR HEMOGLOBIN 29.3 pg (27.0-33.4); MEAN CORPUSCULAR HGB CONC 33.8 g/dL (32.0-36.0); MEAN CORPUSCULAR VOLUME 87 fl (80-97); MONOCYTES % (AUTO) 9.5 % (3-13); PLATELET COUNT 268 10^3/uL (150-450); RED CELL DISTRIBUTION WIDTH 14.3 % (11.5-14.0); TOTAL CELLS COUNTED % (AUTO) 100 %; WHITE BLOOD COUNT 10.6 10^3/uL (4.0-10.5)
[2019-12-24 06:20] LABS: ANION GAP 16 (5-19); BLOOD UREA NITROGEN 39 mg/dL (7-20); CALCIUM 9.1 mg/dL (8.4-10.2); CARBON DIOXIDE 25 mmol/L (22-30); CHLORIDE 93 mmol/L (98-107); GLUCOSE 151 mg/dL (75-110); POTASSIUM 4.5 mmol/L (3.6-5.0)
[2019-12-24] MEDS: HYDROXYZINE PAMOATE 25 MG CAPSULE PO PRN (07:05)
[2019-12-24] MEDS: INSULIN LISPRO 100 UNIT/ML 3 ML VIAL SUBCUT SCH ×4 (08:25→12:48)
[2019-12-24] MEDS: CLOPIDOGREL BISULFATE 75 MG TABLET PO SCH (12:47)
[2019-12-24] MEDS: DOCUSATE SODIUM 100 MG CAPSULE PO SCH (12:47)
--- NOTE | 2019-12-24 13:45 | PDOC TRANSFER SUMMARY ---
Impression - Admit/DC Date/PCP Admission Date/Primary Care Provider: 12/17/19 20:21 YNEIFER PETERSON Discharge Date: 12/24/19 - Discharge Diagnosis (1) Osteomyelitis of toe of left foot Is this a current diagnosis for this admission?: Yes (2) Diabetic peripheral vascular disease Is this a current diagnosis for this admission?: Yes (3) Diabetes mellitus Is this a current diagnosis for this admission?: Yes (4) ESRD on hemodialysis Is this a current diagnosis for this admission?: Yes (5) Hypertension Is this a current diagnosis for this admission?: Yes (6) Subclinical hypothyroidism Is this a current diagnosis for this admission?: Yes - Additional Information Resuscitation Status: Full Code Referrals: [facility] [Provider Group] YENIFER PETERSON MD [Primary Care Provider] - Follow up as needed Prescriptions: Gabapentin 300 mg PO DAILY #30 capsule Insulin Glargine,Hum.rec.anlog [Lantus Insulin 100 Unit/1 ml 10 ml] 15 unit SUBCUT QHS #1000 unit Oxycodone HCl/Acetaminophen [Percocet 5-325 mg Tablet] 1 tab PO Q6HP PRN #5 tablet PRN Reason: FOR SEVERE PAIN Home Medications: Atorvastatin Calcium [Lipitor 20 mg Tablet] 20 mg PO QHS 12/17/19 Clopidogrel Bisulfate [Plavix 75 mg Tablet] 75 mg PO DAILY 12/17/19 Ergocalciferol (Vitamin D2) [Drisdol 50,000 unit (1.25MG) Capsule] 50,000 unit PO AQUINO@1000 12/17/19 Hydroxyzine Pamoate [Vistaril 25 mg Capsule] 50 mg PO .BEFORE DIALYSIS 12/17/19 Insulin Lispro [Humalog Kwikpen U-100] 10 unit SQ MEALS 12/17/19 Melatonin [Melatonin 5 mg Tablet] 10 mg PO QHS 12/17/19 Omeprazole 20 mg PO DAILY 12/17/19 Ondansetron [Zofran Odt 4 mg Tablet] 4 mg PO BIDP PRN 12/17/19 Quetiapine Fumarate [Seroquel] 50 mg PO QHS 12/17/19 Docusate Sodium [Colace 100 mg Capsule] 100 mg PO DAILY capsule 12/24/19 Gabapentin 300 mg PO DAILY #30 capsule 12/24/19 Insulin Glargine,Hum.rec.anlog [Lantus Insulin 100 Unit/1 ml 10 ml] 15 unit SUBCUT QHS #1000 unit 12/24/19 Oxycodone HCl/Acetaminophen [Percocet 5-325 mg Tablet] 1 tab PO Q6HP PRN #5 tablet 12/24/19 History of Present Illiness History of Present Illness: According to admitting provider: MARIOLA GAR is a 59 year old female who presented to the emergency room at the instruction of the wound care clinic due to worsening of her chronic diabetic left foot issues. She denies any current complaints but states the wound care clinic provider instructed her to come to the hospital because she may need to have her toes amputated. She admits chronic left foot diabetic wounds that have not been healing involving her first second and fifth toes. She admits that her diabetes has never been well controlled. She admits that she is on Tuesday and Tuesday dialysis for end-stage renal disease. In the emergency room she was found to have radiographic evidence of osteomyelitis involving all of the toes of the left foot. Dr. Calvin Barraza was consulted by the emergency room provider and the patient was subsequently admitted to the hospitalist service with consultation to the surgical team. Hospital Course Hospital Course: (1) Osteomyelitis of toe of left foot Is this a current diagnosis for this admission?: Yes Plan: Status post BKA performed for source control by Dr. Cavanaugh on 12/18. She has completed IV antibiotic course yesterday. She does not need any further antibiotics as the source has been controlled. Surgery has cleared her for discharge and will like to follow-up with her at the [facility] in 3 to 4 weeks for removal of sumeet. Pain control as needed. Local wound care with dry gauze, abril wrap and splint under knee to keep knee straight was recommended by Surgery. D/c to [facility]. (2) Diabetic peripheral vascular disease Is this a current diagnosis for this admission?: Yes Plan: Lower extremity dopplers showed very significant disease of Lt LE and as such BKA was done. (3) Diabetes mellitus Qualifiers: Diabetes mellitus type: type 2 Diabetes mellitus intermediate designer insulin use: with intermediate designer use Diabetes mellitus complication status: with neurologic complications Diabetes mellitus complication detail: with unspecified neuropathy Qualified Code(s): E11.40 - Type 2 diabetes mellitus with diabetic neuropathy, unspecified; Z79.4 - technician terminal and repeater (current) use of insulin Is this a current diagnosis for this admission?: Yes Plan: Hemoglobin A1c is 8.3. Takes Humalog with 10units with meals at home. I have added lantus 15units qhs. Regarding her neuropathy, I have reduced gabapentin to 300mg daily which is the max appropriate dosing in ESRD. (4) ESRD on hemodialysis Is this a current diagnosis for this admission?: Yes Plan: Last HD session was this morning 12/23. She gets dialyzed every Tuesday and Saturdays when outpatient. 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 (6) Subclinical hypothyroidism Is this a current diagnosis for this admission?: Yes Plan: Outpatient follow-up for repeat TFTs in 4 to 6 weeks. Physical Exam Vital Signs: Temp Pulse Resp BP Pulse Ox 97.7 F 73 18 116/43 L 98 12/23/19 23:45 12/23/19 23:45 12/23/19 23:45 12/23/19 23:45 12/23/19 23:45 Intake & Output 12/23/19 12/24/19 12/25/19 06:59 06:59 06:59 Intake Total 1140 920 Output Total 0 Balance 1140 920 Weight 88.5 kg 90.5 kg General appearance: PRESENT: no acute distress, cooperative Neck exam: ABSENT: JVD Respiratory exam: PRESENT: clear to auscultation charity, unlabored Cardiovascular exam: PRESENT: +S1, +S2. ABSENT: tachycardia GI/Abdominal exam: PRESENT: soft. ABSENT: tenderness Extremities exam: PRESENT: other - left bka stump in clean dressing Neurological exam: PRESENT: alert, awake, oriented to person, oriented to place, oriented to time Psychiatric exam: ABSENT: agitated, anxious Results Laboratory Results: WBC 10.6 10^3/uL (4.0-10.5) H 12/24/19 05:10 RBC 2.90 10^6/uL (3.72-5.28) L 12/24/19 05:10 Hgb 8.5 g/dL (12.0-15.5) L 12/24/19 05:10 Hct 25.2 % (36.0-47.0) L 12/24/19 05:10 MCV 87 fl (80-97) 12/24/19 05:10 MCH 29.3 pg (27.0-33.4) 12/24/19 05:10 MCHC 33.8 g/dL (32.0-36.0) 12/24/19 05:10 RDW 14.3 % (11.5-14.0) H 12/24/19 05:10 Plt Count 268 10^3/uL (150-450) 12/24/19 05:10 Lymph % (Auto) 26.2 % (13-45) 12/24/19 05:10 [place] % (Auto) 9.5 % (3-13) 12/24/19 05:10 Eos % (Auto) 9.3 % (0-6) H 12/24/19 05:10 Baso % (Auto) 1.0 % (0-2) 12/24/19 05:10 Absolute Neuts (auto) 5.7 10^3/uL (1.7-8.2) 12/24/19 05:10 Absolute Lymphs (auto) 2.8 10^3/uL (0.5-4.7) 12/24/19 05:10 Absolute Monos (auto) 1.0 10^3/uL (0.1-1.4) 12/24/19 05:10 Absolute Eos (auto) 1.0 10^3/uL (0.0-0.6) H 12/24/19 05:10 Absolute Basos (auto) 0.1 10^3/uL (0.0-0.2) 12/24/19 05:10 Seg Neutrophils % 54.0 % (42-78) 12/24/19 05:10 ESR 74 mm/hr (0-30) H 12/19/19 07:20 PT 14.4 SEC (11.4-15.4) 12/18/19 06:20 INR 1.10 12/18/19 06:20 APTT 34.4 SEC (23.5-35.8) 12/18/19 06:20 Sodium 133.8 mmol/L (137-145) L 12/24/19 05:10 Potassium 4.5 mmol/L (3.6-5.0) 12/24/19 05:10 Chloride 93 mmol/L (98-107) L 12/24/19 05:10 Carbon Dioxide 25 mmol/L (22-30) 12/24/19 05:10 Anion Gap 16 (5-19) 12/24/19 05:10 BUN 39 mg/dL (7-20) H 12/24/19 05:10 Creatinine 8.79 mg/dL (0.52-1.25) H 12/24/19 05:10 Est GFR ( Amer) 6 (>60) L 12/24/19 05:10 Est GFR (MDRD) Non-Af 5 (>60) L 12/24/19 05:10 Glucose 151 mg/dL (75-110) H 12/24/19 05:10 POC Glucose 224 mg/dL (70-110) H 12/24/19 12:33 Hemoglobin A1c % 8.3 % (4.7-6.0) H 12/18/19 06:20 Calcium 9.1 mg/dL (8.4-10.2) 12/24/19 05:10 Magnesium 1.9 mg/dL (1.6-2.3) 12/20/19 06:20 Total Bilirubin 0.5 mg/dL (0.2-1.3) 12/17/19 16:36 Direct Bilirubin 0.4 mg/dL (0.0-0.4) 12/17/19 16:36 Neonat Total Bilirubin Not Reportable 12/17/19 16:36 Neonat Direct Bilirubin Not Reportable 12/17/19 16:36 Neonat Indirect Bili Not Reportable 12/17/19 16:36 AST 21 U/L (14-36) 12/17/19 16:36 ALT 7 U/L (<35) 12/17/19 16:36 Alkaline Phosphatase 139 U/L (38-126) H 12/17/19 16:36 Total Protein 8.3 g/dL (6.3-8.2) H 12/17/19 16:36 Albumin 4.3 g/dL (3.5-5.0) 12/17/19 16:36 Triglycerides 206 mg/dL (<150) H 12/18/19 06:20 Cholesterol 179.45 mg/dL (0-200) 12/18/19 06:20 LDL Cholesterol Direct 97 mg/dL (<100) 12/18/19 06:20 VLDL Cholesterol 41.2 mg/dL (10-31) H 12/18/19 06:20 HDL Cholesterol 53 mg/dL (>40) 12/18/19 06:20 TSH 6.93 uIU/mL (0.47-4.68) H 12/18/19 06:20 Free T4 1.12 ng/dL (0.78-2.19) 12/18/19 06:20 Free T3 pg/mL 3.96 pg/mL (2.77-5.27) 12/18/19 06:20 Time Trough Drawn 0547 12/21/19 05:47 Vancomycin Trough 17.7 ug/mL (5.0-20.0) 12/21/19 05:47 SARS-CoV-2 (PCR) NEGATIVE (NEGATIVE) 12/19/19 06:55 Impressions: Foot X-Ray 12/17/19 15:46 IMPRESSION: 1. Decreased mineralization and indistinct cortex involving the 3rd through 5th phalanges suggestive of osteomyelitis. Additional indistinct julio c at the distal 1st and 2nd digits also moderately suspicious for osteomyelitis. MRI could be considered for further characterization. 2. No fracture. Extremity Arterial Study 12/18/19 00:00 IMPRESSION: Probable distal SFA occlusion. Monophasic waveforms in the popliteal and visualized infrapopliteal vessels. Peroneal artery appears occluded. Recommend conventional angiography for further assessment. Alternatively CTA could be performed for planning of intervention. Plan Time Spent: Greater than 30 Minutes Stroke Is this a Stroke Patient?: No Acute Heart Failure Is this a Heart Failure Patient?: No
[2019-12-24 14:03] VITALS: BP 77/39
--- NOTE | 2019-12-24 22:51 | PDOC PROGRESS REPORT ---
Subjective Date:: 12/24/19 Subjective:: I am seeing the patient during dialysis this morning. She is tolerating dialysi s well without any problems. However she still complains of pain on her left BKA stump. He states that it is throbbing. Reason For Visit: OSTEOMYELITIS LEFT TOES Physical Exam Vital Signs: Temp Pulse Resp BP Pulse Ox 97.7 F 73 18 116/43 L 98 12/23/19 23:45 12/23/19 23:45 12/23/19 23:45 12/23/19 23:45 12/23/19 23:45 Intake & Output 12/23/19 12/24/19 12/25/19 06:59 06:59 06:59 Intake Total 1140 920 Output Total 0 Balance 1140 920 Weight 88.5 kg 90.5 kg Vitals during dialysis: Blood pressure 141/63, heart rate of 80, blood flow rate of 450 mL/min and dialysate flow rate of 800 mL/min. Exam: General appearance: PRESENT: no acute distress, cooperative, well-developed, well-nourished Head exam: PRESENT: atraumatic, normocephalic Eye exam: PRESENT: conjunctiva slightly pale, PERRLA. ABSENT: scleral icterus Neck exam: ABSENT: JVD Respiratory exam: PRESENT: Normal breath sounds. ABSENT: crackles, rales, rhonchi, unlabored, wheezes Cardiovascular exam: PRESENT: Regular rate rhythm -+S1, +S2. ABSENT: diastolic murmur, systolic murmur GI/Abdominal exam: PRESENT: normal bowel sounds, soft. ABSENT: guarding, mass, tenderness Extremities exam: ABSENT: No edema; left BKA Neurological exam: PRESENT: alert, awake, oriented to person, place and time. Skin exam: PRESENT: dry, warm, Cardiovascular exam: PRESENT: RRR, +S1, +S2 GI/Abdominal exam: PRESENT: soft. ABSENT: firm, guarding, tenderness Results Laboratory Results: 12/24/19 05:10 12/24/19 05:10 12/24/19 12/24/19 05:10 05:10 WBC 10.6 H RBC 2.90 L Hgb 8.5 L Hct 25.2 L MCV 87 MCH 29.3 MCHC 33.8 RDW 14.3 H Plt Count 268 Seg Neutrophils % 54.0 Sodium 133.8 L Potassium 4.5 Chloride 93 L Carbon Dioxide 25 Anion Gap 16 BUN 39 H Creatinine 8.79 H Est GFR ( Amer) 6 L Glucose 151 H Calcium 9.1 Impressions: Foot X-Ray 12/17/19 15:46 IMPRESSION: 1. Decreased mineralization and indistinct cortex involving the 3rd through 5th phalanges suggestive of osteomyelitis. Additional indistinct julio c at the distal 1st and 2nd digits also moderately suspicious for osteomyelitis. MRI could be considered for further characterization. 2. No fracture. Extremity Arterial Study 12/18/19 00:00 IMPRESSION: Probable distal SFA occlusion. Monophasic waveforms in the popliteal and visualized infrapopliteal vessels. Peroneal artery appears occluded. Recommend conventional angiography for further assessment. Al ternatively CTA could be performed for planning of intervention. Assessment & Plan - Diagnosis (1) ESRD on hemodialysis Is this a current diagnosis for this admission?: Yes Plan: We will do dialysis today for 3 hours, using the patient's AV fistula, with 2 potassium bath, blood flow rate of 450 mL per minute, dialysate flow rate of 800 mL per minute, ultrafiltration 1 L as tolerated, no heparin and Retacrit with 20,000 units during dialysis intravenously. Patient currently being monitored throughout dialysis treatment. (2) osteomyelitis left toes Is this a current diagnosis for this admission?: Yes Plan: Status post left BKA, 12/19/2019. (3) Diabetic peripheral vascular disease Is this a current diagnosis for this admission?: Yes (4) Anemia in chronic kidney disease Qualifiers: Chronic kidney disease stage: on chronic dialysis Qualified Code(s): N18.6 - End stage renal disease; D63.1 - Anemia in chronic kidney disease; Z99.2 - Dependence on renal dialysis Is this a current diagnosis for this admission?: Yes Plan: Retacrit on dialysis as needed. Hemoglobin drop likely due to blood loss from surgery. (5) Diabetes mellitus type 2 in obese Is this a current diagnosis for this admission?: Yes (6) Hypertension Qualifiers: Hypertension type: secondary to endocrine disorders Qualified Code(s): I15.2 - Hypertension secondary to endocrine disorders Is this a current diagnosis for this admission?: Yes
== END 2019-12-24 16:34 | DRG 617 ==
LOC: ER 15:37 → EH 20:21 → 5 23:17
PROVIDERS: ADMIT Emergency Medicine; ATTEND Internal Medicine
PROC: 5A1D70Z Performance of Urinary Filtration, Intermittent, Less than 6 Hours Per Day (ICD-10-PCS; 2019-12-19)
PROC: 0Y6G0ZZ Detachment at Left Knee Region, Open Approach (ICD-10-PCS; principal; 2019-12-19 12:00)
DX: E11.69 Type 2 diabetes mellitus with other specified complication (principal); M86.9 Osteomyelitis, unspecified; I13.2 Hypertensive heart and chronic kidney disease with heart failure and with stage 5 chronic kidney disease, or end stage renal disease; I50.30 Unspecified diastolic (congestive) heart failure; N18.6 End stage renal disease; D63.1 Anemia in chronic kidney disease; E11.22 Type 2 diabetes mellitus with diabetic chronic kidney disease; E11.51 Type 2 diabetes mellitus with diabetic peripheral angiopathy without gangrene; M32.9 Systemic lupus erythematosus, unspecified; E11.43 Type 2 diabetes mellitus with diabetic autonomic (poly)neuropathy; E03.9 Hypothyroidism, unspecified; I25.10 Atherosclerotic heart disease of native coronary artery without angina pectoris; E78.5 Hyperlipidemia, unspecified; G47.30 Sleep apnea, unspecified; E11.319 Type 2 diabetes mellitus with unspecified diabetic retinopathy without macular edema; K21.9 Gastro-esophageal reflux disease without esophagitis; M19.90 Unspecified osteoarthritis, unspecified site; M10.9 Gout, unspecified; G89.4 Chronic pain syndrome; F32.9 Major depressive disorder, single episode, unspecified; E66.01 Morbid (severe) obesity due to excess calories; K31.84 Gastroparesis; Z79.02 Long term (current) use of antithrombotics/antiplatelets; Z79.4 Long term (current) use of insulin; Z79.899 Other long term (current) drug therapy; Z99.2 Dependence on renal dialysis; I25.2 Old myocardial infarction; Z85.828 Personal history of other malignant neoplasm of skin; Z88.0 Allergy status to penicillin; Z88.8 Allergy status to other drugs, medicaments and biological substances; Z91.040 Latex allergy status; Z68.39 Body mass index [BMI] 39.0-39.9, adult; Z84.1 Family history of disorders of kidney and ureter; Z11.59 Encounter for screening for other viral diseases
CPT/HCPCS: 01482; 36415; 80048; 80053; 80061; 80202; 82962; 83036; 83735; 84439; 84443; 84481; 85025; 85027; 85610; 85652; 85730; 87040; 87070; 87077; 87150; 87205; 87635; 88307; 88311; 93926; 94660; 99285; C9803; J0744; J1100; J1644; J1815; J2250; J2270; J2370; J2405; J2550; J2704; J3010; J3370; J3490; J7060; Q5105

== ENCOUNTER 2020-01-02 14:15 | Emergency (ER) | payer MEDICARE, MEDICAID ==
--- NOTE | 2020-01-02 16:27 | ER Document Report ---
ED General - General Chief Complaint: Fall Stated Complaint: ALTERED MENTAL STATUS Time Seen by Provider: 01/02/20 16:26 Primary Care Provider: YENIFER PETERSON MD [Primary Care Provider] - Follow up as needed TRAVEL OUTSIDE OF THE [place] IN LAST 30 DAYS: No - HPI Notes: 59-year-old female presents after she fell out of bed. Patient states that she was waiting for her lunch tray to be brought to her, she states that she dozed off and woke up and was on her left side on the side of her bed, states that the bed rail was down so she likely just rolled off the bed. Underwent recent BKA of her left leg, she is having some increasing pain to the area along as pain to her left hip. She states that she is upset that the rehab facility called her altered, she states that she simply had fallen asleep, she states that she went to college and knows when she is altered or not. Patient also aware that EMS reported she had forgotten she had an amputation. Patient states that she is having a hard time adjusting to the back she had an amputation and has had several episodes where she has forgotten about it before, she states that she does have phantom limb pains and she does feel like the leg is still there. She denies headache, numbness or weakness, chest pain shortness of breath. She had a full dialysis and yesterday and plans to go tomorrow. - Related Data Allergies/Adverse Reactions: labetalol [Labetalol] Allergy (Severe, Verified 12/17/19 15:47) swelling, sob Penicillins Allergy (Severe, Verified 12/17/19 15:47) itching duloxetine Allergy (Verified 12/17/19 15:47) latex Allergy (Verified 12/17/19 15:47) linagliptin [From Tradjenta] Allergy (Verified 12/17/19 15:47) terbinafine Allergy (Verified 12/17/19 15:47) Liraglutide [From Victoza] Adverse Reaction (Verified 12/17/19 15:47) nausea/vomitting Past Medical History - General Information source: Patient - Social History Smoking Status: Never Smoker Frequency of alcohol use: None Drug Abuse: None Family History: Reviewed & Not Pertinent - Past Medical History Cardiac Medical History: Reports: Hx Congestive Heart Failure, Hx Coronary Artery Disease, Hx Heart Attack - 2008, Hx Hypercholesterolemia, Hx Hypertension, Hx Peripheral Vascular Disease Denies: Hx Atrial Fibrillation Pulmonary Medical History: Reports: Hx Sleep Apnea - On CPap Denies: Hx Asthma, Hx COPD Neurological Medical History: Reports: Hx Cerebrovascular Accident. Denies: Hx Seizures Endocrine Medical History: Reports: Hx Diabetes Mellitus Type 2, Hx Hypothyroidism. Denies: Hx Diabetes Mellitus Type 1, Hx Hyperthyroidism Renal/ Medical History: Reports: Hx End Stage Renal Disease Malignancy Medical History: Reports: Hx Skin Cancer GI Medical History: Reports: Hx Gastroesophageal Reflux Disease. Denies: Hx Cirrhosis, Hx Hepatitis Musculoskeletal Medical History: Reports Hx Arthritis, Reports Hx Gout, Reports Hx Systemic Lupus Erythematosus Skin Medical History: Denies Hx Eczema, Denies Hx Psoriasis Psychiatric Medical History: Reports: Hx Depression Infectious Medical History: Denies: Hx Hepatitis Past Surgical History: Reports: Hx Appendectomy, Hx Section, Hx Cholecystectomy, Hx Herniorrhaphy, Hx Hysterectomy, Hx Orthopedic Surgery - cancer removed from back, Other - parathyroidectomy, 3-1/2 glands removed on 01/13/2016; right adrenalectomy - Immunizations Hx Diphtheria, Pertussis, Tetanus Vaccination: Yes Hx Pneumococcal Vaccination: 02/18/15 Review of Systems - Review of Systems Constitutional: No symptoms reported EENT: No symptoms reported Cardiovascular: No symptoms reported Respiratory: No symptoms reported Gastrointestinal: No symptoms reported Genitourinary: No symptoms reported Female Genitourinary: No symptoms reported Musculoskeletal: See HPI Skin: No symptoms reported Hematologic/Lymphatic: No symptoms reported Neurological/Psychological: No symptoms reported Physical Exam - Vital signs Vitals: Pulse Resp BP Pulse Ox 80 16 110/51 L 95 01/02/20 14:16 01/02/20 14:16 01/02/20 14:16 01/02/20 14:16 - General General appearance: Appears well, Alert In distress: None - HEENT Head: Normocephalic, Atraumatic Extraocular movements intact: Yes Pupils: PERRL Notes: Full range of motion, no midline tenderness - Respiratory Breath sounds: Normal - Cardiovascular Rhythm: Regular Heart sounds: Normal auscultation - Abdominal Tenderness: Nontender - Extremities Notes: Status post left BKA, there is no bleeding coming from surgical site, she has some tenderness which she reports is at its baseline. She has preserved range of motion of the knee. No tenderness to the left hip. - Neurological Neuro grossly intact: Yes Cognition: Normal Orientation: AAOx4 Nadeau Coma Scale Eye Opening: Spontaneous [place] Coma Scale Verbal: Oriented [place]ade[place] Coma Scale Motor: Obeys Commands Nadeau Coma Scale Total: 15 - Psychological Associated symptoms: Normal affect - Skin Skin Temperature: Warm Course - Re-evaluation Re-evalutation: 59-year-old female presents after she fell out of bed at the rehab facility, she is there because she is status post recent amputation of her left leg. Patient currently denies complaints other than ongoing pain to her left amputation site. She is neurologically intact, GCS 15, has no midline tenderness. Will obtain CT head to rule out bleed though low suspicion for this. Obtain x-ray of the left leg to assure that no fracture has taken place. No current bleeding from the stump site. Oral pain medication. I do not believe that patient exhibits any signs of altered mental status at this time. Vital signs stable. 01/02/20 18:35 CT head is negative for bleed, hip and knee x-rays are negative for acute fracture. Updated patient on results. She remains alert and oriented, neurologically intact, she is provided meal tray. She is appropriate for discharge back to rehab facility at this time. 01/02/20 18:40 Patient's daughter updated on results as well. - Vital Signs Vital signs: Temp Pulse Resp BP Pulse Ox 97.8 F 80 17 102/61 100 01/02/20 14:34 01/02/20 14:16 01/02/20 18:00 01/02/20 16:25 01/02/20 19:00 - Diagnostic Test Radiology reviewed: Image reviewed, Reports reviewed Discharge - Discharge Clinical Impression: Fall from bed Qualifiers: Encounter type: initial encounter Qualified Code(s): W06.XXXA - Fall from bed, initial encounter Disposition: HOME, SELF-CARE Additional Instructions: Please go to dialysis tomorrow as planned peer return to the emergency department for any concerning worsening symptoms. Referrals: YENIFER PETERSON MD [Primary Care Provider] - Follow up as needed
[2020-01-02] MEDS ORDERED: OXYCODONE HCL IR 5 MG TABLET PO ONE (16:40)
--- NOTE | 2020-01-02 17:17 | RADIOLOGY REPORT (SQ) ---
EXAM DESCRIPTION: CT HEAD WITHOUT IMAGES COMPLETED DATE/TIME: 01/02/2020 5:08 pm REASON FOR STUDY: fall, eval bleed COMPARISON: 02/08/2018 TECHNIQUE: Axial images acquired through the brain without intravenous contrast. Images reviewed wi th bone, brain and subdural windows. Additional sagittal and coronal reconstructions were generated. Images stored on PACS. All CT scanners at this facility use dose modulation, iterative reconstruction, and/or weight based d osing when appropriate to reduce radiation dose to as low as reasonably achievable (ALARA). [facility]: Dose Right [facility]: CareDose [facility]: Dose Right [facility]: Teradose 4D [facility]: TastyKhana RADIATION DOSE: CT Rad equipment meets quality standard of care and radiation dose reduction techniq ues were employed. CTDIvol: 53.2 mGy. DLP: 964 mGy-cm. mGy. LIMITATIONS: None. FINDINGS: VENTRICLES: Prominent. CEREBRUM: No masses. No hemorrhage. No midline shift. Areas of low density in the white matter mos t likely due to chronic micro-vascular ischemic change. No evidence for acute infarction. CEREBELLUM: No masses. No hemorrhage. No alteration of density. No evidence for acute infarction. EXTRAAXIAL SPACES: Mild age-related involutional change. No fluid collections. No masses. ORBITS AND GLOBE: No intra- or extraconal masses. Normal contour of globe without masses. CALVARIUM: No fracture. PARANASAL SINUSES: No fluid or mucosal thickening. SOFT TISSUES: No mass or hematoma. OTHER: No other significant finding. IMPRESSION: MILD CHRONIC CHANGES OF ATROPHY AND MICROVASCULAR ISCHEMIA. NO ACUTE PROCESS. EVIDENCE OF ACUTE STROKE: NO. TECHNICAL DOCUMENTATION: JOB ID: [id number] Quality ID # [id number]: Final reports with documentation of one or more dose reduction techniques (e.g., Au tomated exposure control, adjustment of the mA and/or kV according to patient size, use of iterative reconstruction technique) 2010 [employer]- All Rights Reserved Reading location - IP/workstation name: [email or web address]
--- NOTE | 2020-01-02 17:58 | RADIOLOGY REPORT (SQ) ---
EXAM DESCRIPTION: HIP LEFT AP/LATERAL IMAGES COMPLETED DATE/TIME: 01/02/2020 5:27 pm REASON FOR STUDY: fall, eval bleed fall, left hip pain COMPARISON: 02/27/2016 NUMBER OF VIEWS: Two views. TECHNIQUE: AP and frog-leg view of the left hip. LIMITATIONS: None. FINDINGS: MINERALIZATION: Normal. LEFT HIP: No fracture or dislocation. No worrisome bone lesions. OPPOSITE HIP: No fracture or dislocation. No worrisome bone lesions. SOFT TISSUES: No findings. OTHER: There is vascular calcification. IMPRESSION: No acute fracture or dislocation. COMMENT: Pelvic fractures are often occult on plain radiographs. If strong clinical suspicion for f racture, recommend CT or MR. TECHNICAL DOCUMENTATION: JOB ID: [id number] 2010 [employer]- All Rights Reserved Reading location - IP/workstation name: [email or web address]
--- NOTE | 2020-01-02 18:00 | RADIOLOGY REPORT (SQ) ---
EXAM DESCRIPTION: KNEE LEFT 2 VIEWS IMAGES COMPLETED DATE/TIME: 01/02/2020 5:27 pm REASON FOR STUDY: fall, eval bleed COMPARISON: None. NUMBER OF VIEWS: Two views. TECHNIQUE: AP and lateral radiographic images acquired of the left knee. LIMITATIONS: None. FINDINGS: MINERALIZATION: Normal. BONES: Prior below the knee amputation. No acute fracture or dislocation. Sclerotic lesion in the d istal femur with nonaggressive margins consistent with benign process. JOINT: No effusion. SOFT TISSUES: No soft tissue swelling. No radio-opaque foreign body. OTHER: No other significant finding. IMPRESSION: Postsurgical changes with below the knee amputation. No acute findings. TECHNICAL DOCUMENTATION: JOB ID: [id number] 2010 [employer] All Rights Reserved Reading location - IP/workstation name: [email or web address]
[2020-01-02 19:51] VITALS: BP 102/61
== END 2020-01-02 19:45 | disposition home or self-care (01) ==
LOC: ER 14:15
DX: R41.82 Altered mental status, unspecified (principal); W06.XXXA Fall from bed, initial encounter; Y92.099 Unspecified place in other non-institutional residence as the place of occurrence of the external cause; I50.9 Heart failure, unspecified; E78.00 Pure hypercholesterolemia, unspecified; I11.0 Hypertensive heart disease with heart failure; E11.9 Type 2 diabetes mellitus without complications; Z89.512 Acquired absence of left leg below knee; Z88.0 Allergy status to penicillin; Z91.040 Latex allergy status; Z86.73 Personal history of transient ischemic attack (TIA), and cerebral infarction without residual deficits; Z90.49 Acquired absence of other specified parts of digestive tract; I25.2 Old myocardial infarction
CPT/HCPCS: 99285; 73502; 73560; 70450; A9270